=== PATIENT | female | born 1965 | race Caucasian/White ===

== ENCOUNTER 2017-03-20 22:48 | Inpatient (IN) | payer OTHER, SELFPAY ==
[2017-03-20 22:54] VITALS: BP 130/81; PULSE 123; RESP 24; TEMP 37.6; O2SAT 67; BMI 33.7
--- NOTE | 2017-03-20 23:10 | XR_ITS ---
XR chest 2V Ordering Physician: Sherman Napoles MD Patient Age: 52 years: Female HISTORY: ITS.REASON: shortness of breath Short of breath. COPD. TECHNIQUE: PA and lateral chest COMPARISON :09/14 CXR 2 view FINDINGS Patchy pneumonic infiltrates bilaterally. Right lung. Patchy infiltrate is seen at the right suprahilar region behind the head of the clavicle with a patchy infiltrate and atelectasis seen at right lower lobe as well as just lateral to the right nicole. Most extensive infiltrate is seen throughout RML on the lateral view Left lung. Low-density patchy infiltrates are seen extending to the left upper lobe as well as left perihilar region.. The inspiration is less optimally would also accentuates markings. Heart upper normal in size. Nicole and mediastinal structures otherwise similar IMPRESSION: 1. Patchy bilateral low-density infiltrates. Mainly perihilar Perihilar/ central infiltrate left lung which may and extends towards the left upper lobe. Patchy Infiltrates right lung most evident extending from right nicole -into the medial RUL & medial RLL. & Throughout RML
[2017-03-20 23:43] LABS: Basophils # 0.1 K/mm3 (0-0.2); Basophils % 0.4 % (0.1-2.0); Eosinophils # 1.6 K/mm3 (0.0-0.4); Eosinophils % 9.5 % (0.1-12.0); Hematocrit 38.7 % (37.0-47.0); Hemoglobin 12.5 g/dL (12.2-16.2); Lymphocytes # 1.5 K/mm3 (0.7-4.5); Lymphocytes % 9.1 K/mm3 (10-50); Mean Corpuscular HGB Conc 32.3 g/dL (31.8-35.4); Mean Corpuscular Volume 86.7 fl (81-99); Mean Platelet Volume 7.3 fl (7.4-10.4); Monocytes # 0.6 K/mm3 (0.1-1.0); Monocytes % 3.7 % (1.7-9.3); Neutrophils # 13.1 K/mm3 (1.8-7.8); Neutrophils % 77.3 % (37.0-80.0); Platelet Count 347 K/mm3 (142-424); Red Blood Count 4.46 M/mm3 (4.20-5.40); Red Cell Distribution Width 13.7 % (11.5-17.5); White Blood Count 16.9 K/mm3 (4.8-10.8)
[2017-03-20 23:46] LABS: MANUAL DIFFERENTIAL MANUAL DIFFERENTIAL (MANUAL DIFF)
[2017-03-20 23:54] LABS: Alanine Aminotransferase 46 U/L (12-78); Albumin Level 3.5 gm/dL (3.4-5.0); Alkaline Phosphatase 156 U/L (46-116); Anion Gap 11.6 mEq/L (5-15); Aspartate Amino Transferase 38 U/L (15-37); Bilirubin,Total 0.4 mg/dL (0.2-1.0); Blood Urea Nitrogen 14 mg/dL (7-18); Calcium 8.8 mg/dL (8.5-10.1); Carbon Dioxide 27 mmol/L (21.0-32.0); Chloride 102 mmol/L (98-107); Creatinine Clearance Estimated 104 mL/min (0-300); Creatinine,Serum 0.88 mg/dL (0.55-1.02); Estimated Glomerular Filt Rate 67 ml/min (>60); GFR (African American) 81 ML/MIN (>60); Globulin 3.5 gm/dl (1.3-3.2); Glucose 106 mg/dL (74-106); Potassium 3.6 mmoL/L (3.5-5.1); Sodium 137 mmol/L (136-145)
[2017-03-21] VITALS (15 sets, daily range): BP systolic 104–148; BP diastolic 58–81; PULSE 76–119; RESP 21–28; TEMP 36.4–37.3; O2SAT 90–96; BMI 35.6
--- NOTE | 2017-03-21 00:16 | HMH.EDGENADL ---
ED Disposition Clinical Impression: CAP (community acquired pneumonia), Acute respiratory failure with hypoxia Asthma exacerbation Qualifiers: Asthma severity: severe Asthma persistence: persistent Qualified Code(s): J45.51 - Severe persistent asthma with (acute) exacerbation Disposition: Still a Patient Condition on Discharge: Fair Referrals: Delonte Hernandez MD [Primary Care Provider] - - Critical Care Critical Care Time: Yes Attestation: On 03/20/17, the high probability of a clinically significant, sudden or life threatening deterioration of the following system(s) required my full and direct attention, intervention and personal management. The time I documented below is in addition to time spent performing reported procedures but includes the following listed in this critical care notation. Total Critical Care Time: 40 Vital system(s) involved:: Respiratory Failure My critical care processes included: Assessment & monitoring of V/S, Initial and Re-exams, Data Review/Interpretation, Coordinating Care, Medication Orders and management, Documentation Medical Decision Making Vital Signs: 03/20/17 22:54 Temperature 99.6 F Temperature Source Temporal Artery Scan Pulse Rate [Right Radial] 123 H Respiratory Rate 24 Blood Pressure [Right Arm] 130/81 Blood Pressure Mean [Right Arm] 97 Blood Pressure Position [Right Arm] Sitting 02 Sat by Pulse Oximetry 67 L Oxygen Delivery Method Room Air - Lab Data Lab Results 03/20/17 23:30: WBC 16.9 H, RBC 4.46, Hgb 12.5, Hct 38.7, MCV 86.7, MCH 28.0, MCHC 32.3, RDW 13.7, Plt Count 347, MPV 7.3 L, Neut % (Auto) 77.3, Lymph % (Auto) 9.1 L, Vilas % (Auto) 3.7, Eos % (Auto) 9.5, Baso % (Auto) 0.4, Neut # (Auto) 13.1 H, Lymph # (Auto) 1.5, Vilas # (Auto) 0.6, Eos # (Auto) 1.6 H, Baso # (Auto) 0.1, Total Counted 100, Neutrophils % (Manual) 84 H, Band Neutrophils % 4.0, Lymphocytes % (Manual) 9 L, Monocytes % (Manual) 2, Eosinophils % (Manual) 1, Platelet Estimate Normal, Polychromasia 1+, Hypochromasia 1+, Poikilocytosis 1+, Stomatocytes 1+ 01/20/18 23:30: Sodium 137, Potassium 3.6, Chloride 102, Carbon Dioxide 27, Anion Gap 11.6, BUN 14, Creatinine 0.88, Estimated Creat Clear 104, Estimated GFR 67, Est GFR ( Amer) 81, Glucose 106, Calcium 8.8, Total Bilirubin 0.4, AST 38 H, ALT 46, Alkaline Phosphatase 156 H, Total Protein 7.0, Albumin 3.5, Globulin 3.5 H, Albumin/Globulin Ratio 1.0 L Result diagrams: 03/20/17 23:30 03/20/17 23:30 Orders (Tests/Meds): ED MEDICATIONS Discontinued Medications Generic Name Dose Route Start Last Admin Trade Name Freq PRN Reason Stop Dose Admin Albuterol/Ipratropium 3 ml 03/21/17 00:26 Duoneb 3ml [facility] 03/21/17 00:27 ONCE ONE Albuterol/Ipratropium 3 ml 03/21/17 01:30 03/21/17 01:32 Duoneb 3ml [facility] 03/21/17 01:31 3 ml ONCE ONE Administration Azithromycin 500 mg/ Sodium 250 mls @ 250 mls/hr 03/21/17 01:12 03/21/17 01:28 Chloride IV 03/21/17 01:13 250 mls/hr ONCE ONE Administration Protocol Ceftriaxone Sodium 1 gm/ 50 mls @ 100 mls/hr 03/21/17 01:12 03/21/17 01:28 Sodium Chloride IV 03/21/17 01:41 100 mls/hr ONCE ONE Administration Methylprednisolone Sodium Succinate 125 mg 03/21/17 00:26 03/21/17 01:28 Solu-Medrol 125mg/2ml Vial IV 03/21/17 00:27 125 mg ONCE ONE Administration ORDERS Category Date Time Status XR chest 2V Stat Exams 03/20/17 23:10 Taken Upper Respiratory Panel, PCR Stat Lab 03/21/17 00:26 Ordered Blood Culture Stat Micro 03/20/17 23:30 Received ABG [Arterial Blood Gas] Stat RT 03/21/17 01:15 Ordered Arterial Blood Gas Stat RT 03/21/17 01:30 Received - Celio Inquiry Pt receiving controlled substance: No Medical Decision Making Narrative: The patient lists an allergy to penicillin, states as a child she had hives. Records review shows that she has had cephalosporins multiple times including Rocephin. I have discussed the
[2017-03-21 00:51] LABS: Eosinophils % 1 % (0-3); Lymphocytes % 9 % (10-50); Monocytes % 2 % (2-9); Neutrophils % 84 % (42-76); Platelet Estimate Normal; Polychromasia 1+; Total Cells Counted 100
[2017-03-21 00:52] LABS: Hypochromasia 1+; Poikilocytosis 1+; Stomatocytes 1+
[2017-03-21 04:00] LABS: Adenovirus,PCR Not Detected (NotDetected); Bordetella Pertussis Not Detected (NotDetected); Chlamydophila Pneumoniae, PCR Not Detected (NotDetected); Coronavirus 229E Not Detected (NotDetected); Coronavirus NL63 Not Detected (NotDetected); Coronavirus OC43 Not Detected (NotDetected); Coronovirus HKU1,PCR Not Detected (NotDetected); Human Metapneumovirus Not Detected (NotDetected); Influenza A, PCR Not Detected (NotDetected); Influenza AH1, 2009 Not Detected (NotDetected); Influenza AH1, PCR Not Detected (NotDetected); Influenza AH3,PCR Not Detected (NotDetected); Influenza B, PCR Not Detected (NotDetected); Mycoplasma Pneumoniae, PCR Not Detected (NotDected); Parainfluenza 1, PCR Not Detected (NotDetected); Parainfluenza 2, PCR Not Detected (NotDetected); Parainfluenza 3, PCR Not Detected (NotDetected); Parainfluenza 4, PCR Not Detected (NotDetected); Respiratory Syncytial Virus Not Detected (NotDetected)
[2017-03-21 05:17] LABS: Rhinovirus/Enterovirus Detected (NotDetected)
--- NOTE | 2017-03-21 05:43 | PC.NURSE ---
(CARLOS) NOTIFIED @ 0353 OF PT INCREASING SOA AND ANXIETY. NOTIFIED MD THAT PATIENT IS ON 100% NON-REBREATHER AND SATING AND HAS RELIEVED HER SOA SOME. PT INCREASINGLY BECOMING ANXIOUS WITH MASK ON AND TRYING TO TAKE IT OFF. PER MD ORDER: ATIVAN 0.5MG IV Q6H PRN TITRATE 02 PER NC TO KEEP SATS ABOVE 90
--- NOTE | 2017-03-21 05:45 | PC.NURSE ---
UPON ADMISSION PT WAS VERY SOA AND ANXIOUS. PT 02 SATS ON 6L NC WERE IN MID 70S, PT PUT ON 100% NON-REBREATHER AND SATS WENT UP TO LOW TO MID 90S AND SUSTAINED. MD NOTIFIED OF EPISODE, SEE PREVIOUS NOTED. WHEEZING NOTED T/O LUNG AUSCULTATION. PT NOW SUSTAINING 89-90 O2 SAT ON 5.5L NC, PT STATES SHE FEELS A LOT BETTER AND HER ANXIETY AND SOA HAVE DECREASED SINCE ADMINISTRATION OF PRN ATIVAN. PT RESTING COMFORTABLY IN BED AT THIS TIME. FAMILY AT BEDSIDE. CONT PULSE OX IN PLACE. WILL CONTINUE TO MONITOR.
--- NOTE | 2017-03-21 07:10 | PC.NURSE ---
REPORT GIVEN TO Mor BLUNT W/C
--- NOTE | 2017-03-21 07:41 | PC.NURSE ---
report given to walter dyer rn
[2017-03-21 08:22] LABS: ABG Base Excess -0.7 mmol/L (-2.4-2.3); ABG HCO3 23.8 mmhg (22.0-26.0); ABG Oxygen Saturation 85 % (90-100); ABG PCO2 37.3 mmhg (35.0-45.0); ABG PH 7.42 mmol/L (7.35-7.45); ABG TCO2 24.9 mmhg (23-27); Allen's Test ACCEPTABLE; Source R.RADIAL; Tidal Volume 5LPM
[2017-03-21 08:23] LABS: ABG PO2 49.3 mmhg (80-100)
--- NOTE | 2017-03-21 08:23 | HMH.HP ---
*Admission Date: 03/20/17 *Chief complaint: Wheezing and shortness of air *History of present illness: 52-year-old white female with asthma who over the past couple of days has had a viral type illness with nasal congestion and rhinorrhea that has progressed to shortness of air and wheezing that culminated in significant dyspnea and dyspnea at rest and exertion. Came to the emergency department, low saturations were noted, patient responded oxygen and nebulizers but continued to have hypoxia. Admitted to hospital given failure of reversal of asthma exacerbation in the emergency department. [facility] History I have reviewed the patient's past medical history: Yes Medical History: Reports:: Asthma, Hyperlipidemia, Hypertension Denies:: Cancer, Diabetes Mellitus Type 1, Diabetes Mellitus Type 2, MRSA Other Medical History: Reports: Anemia, Arthritis Other Surgeries: Yes: Hysterectomy-Partial, Sinus Surgery Amputation: No Fractures: No - *Social History Educational Level: Completed High School Smoking Status: Never smoker Alcohol Intake: current Alcohol Intake Frequency:: a few times a month Occupational Status: employed Household Members: spouse - Psychiatric History Expresses thoughts of harming self/others: None Suicide Plan Description: No Plan *Family Hx:: Heart Attack, Hypertension Review of Systems - Review of Systems Review of systems:: unable to obtain, other, pertinent systems reviewed and negative unless documented below - Constitutional Reports body ache(s), Reports chills - ENT Reports change in voice, Reports dry mouth, Reports difficulty swallowing - *Respiratory Reports chest congestion, Reports cough, Reports shortness of breath, Reports shortness of breath with activity Meds Home Medications Medication Instructions Recorded Confirmed Type Budesonide/Formoterol Fumarate 2 inh INHALATION BID 03/20/17 03/20/17 History [Symbicort 160-4.5 Mcg Inhaler] Duloxetine HCl [Duloxetine HCl] 1 tab PO BID 03/20/17 03/20/17 History Zolpidem Tartrate [Ambien 10mg 1 tab PO HS 03/20/17 03/20/17 History tablet] buPROPion HCl [Wellbutrin 75mg 75 mg PO BID 03/20/17 03/20/17 History Tablet] Allergies Allergy/AdvReac Type Severity Reaction Status Date / Time Penicillins Allergy Intermediate I-ITCHING Verified 03/20/17 23:14 Exam Vital signs and Labs for Last 24 Hours: Temp Pulse Resp BP Pulse Ox 97.5 F L 98 H 24 114/63 91 L 03/21/17 08:06 03/21/17 08:06 03/21/17 08:06 03/21/17 08:06 03/21/17 08:06 Laboratory Results - last 24 hr 03/21/17 03:25: Chlamy pneumoniae PCR Not detected, Adenovirus (PCR) Not detected, B.parapertussis DNA PCR Not detected, Coronavirus OC43 (PCR) Not detected, Coronavirus HKU1 (PCR) Not detected, Coronavirus 229E (PCR) Not detected, Coronavirus NL63 (PCR) Not detected, Human Metapneumovir PCR Not detected, Influenza A (H1) PCR Not detected, Influ A (H1N1/09) PCR Not detected, Influenza A (H3) PCR Not detected, Influenza Type A (PCR) Not detected, Influenza Type B (PCR) Not detected, M. pneumoniae (PCR) Not detected, Parainfluenza 1 (PCR) Not detected, Parainfluenza 2 (PCR) Not detected, Parainfluenza 3 (PCR) Not detected, Parainfluenza 4 (PCR) Not detected, RSV (PCR) Not detected, Entero/Rhino (PCR) Detected A I & O for Last 24 hours: Intake & Output 03/18/17 03/19/17 03/20/17 03/21/17 11:59 11:59 11:59 11:59 Intake Total 300 / 300 Output Total 30 / 30 Balance 270 / 270 Weight 214 lb 6 oz Narrative: Patient is lying comfortably in bed on high flow oxygen. Oropharynx is dry with lots of dried mucus in the posterior pharynx but no exudate or petechiae. Minimal sinus tenderness. Lungs have wheezing in the expiratory phase bilaterally and anterior and posterior. Heart rate slightly tachycardic but regular. No edema or clubbing. Neurologic exam intact. Abdomen soft and nontender. Assessment and Plan (1) Acute respiratory failure wi
--- NOTE | 2017-03-21 08:26 | P.HP_ITS ---
*Admission Date: 03/20/17 *Chief complaint: Wheezing and shortness of air *History of present illness: 52-year-old white female with asthma who over the past couple of days has had a viral type illness with nasal congestion and rhinorrhea that has progressed to shortness of air and wheezing that culminated in significant dyspnea and dyspnea at rest and exertion. Came to the emergency department, low saturations were noted, patient responded oxygen and nebulizers but continued to have hypoxia. Admitted to hospital given failure of reversal of asthma exacerbation in the emergency department. [facility] History I have reviewed the patient's past medical history: Yes Medical History: Reports:: Asthma, Hyperlipidemia, Hypertension Denies:: Cancer, Diabetes Mellitus Type 1, Diabetes Mellitus Type 2, MRSA Other Medical History: Reports: Anemia, Arthritis Other Surgeries: Yes: Hysterectomy-Partial, Sinus Surgery Amputation: No Fractures: No - *Social History Educational Level: Completed High School Smoking Status: Never smoker Alcohol Intake: current Alcohol Intake Frequency:: a few times a month Occupational Status: employed Household Members: spouse - Psychiatric History Expresses thoughts of harming self/others: None Suicide Plan Description: No Plan *Family Hx:: Heart Attack, Hypertension Review of Systems - Review of Systems Review of systems:: unable to obtain, other, pertinent systems reviewed and negative unless documented below - Constitutional Reports body ache(s), Reports chills - ENT Reports change in voice, Reports dry mouth, Reports difficulty swallowing - *Respiratory Reports chest congestion, Reports cough, Reports shortness of breath, Reports shortness of breath with activity Meds Home Medications Medication Instructions Recorded Confirmed Type Budesonide/Formoterol Fumarate 2 inh INHALATION BID 03/20/17 03/20/17 History [Symbicort 160-4.5 Mcg Inhaler] Duloxetine HCl [Duloxetine HCl] 1 tab PO BID 03/20/17 03/20/17 History Zolpidem Tartrate [Ambien 10mg 1 tab PO HS 03/20/17 03/20/17 History tablet] buPROPion HCl [Wellbutrin 75mg 75 mg PO BID 03/20/17 03/20/17 History Tablet] Allergies Allergy/AdvReac Type Severity Reaction Status Date / Time Penicillins Allergy Intermediate I-ITCHING Verified 03/20/17 23:14 Exam Vital signs and Labs for Last 24 Hours: Temp Pulse Resp BP Pulse Ox 97.5 F L 98 H 24 114/63 91 L 03/21/17 08:06 03/21/17 08:06 03/21/17 08:06 03/21/17 08:06 03/21/17 08:06 Laboratory Results - last 24 hr 03/21/17 03:25: Chlamy pneumoniae PCR Not detected, Adenovirus (PCR) Not detected, B.parapertussis DNA PCR Not detected, Coronavirus OC43 (PCR) Not detected, Coronavirus HKU1 (PCR) Not detected, Coronavirus 229E (PCR) Not detected, Coronavirus NL63 (PCR) Not detected, Human Metapneumovir PCR Not detected, Influenza A (H1) PCR Not detected, Influ A (H1N1/09) PCR Not detected , Influenza A (H3) PCR Not detected, Influenza Type A (PCR) Not detected, Influenza Type B (PCR) Not detected, M. pneumoniae (PCR) Not detected, Parainfluenza 1 (PCR) Not detected, Parainfluenza 2 (PCR) Not detected, Parainfluenza 3 (PCR) Not detected, Parainfluenza 4 (PCR) Not detected, RSV (PCR ) Not detected, Entero/Rhino (PCR) Detected A I & O for Last 24 hours: Intake & Output 03/18/17 03/19/17 03/20/17 03/21/17 11:59 11:59 11:59 11:59 Intake Total 300 / 300
--- NOTE | 2017-03-21 11:15 | P.CONPHA_ITS ---
[facility] Pharmacy VTE Monitoring - Patient Demographics Admission date: 03/21/17 Report Date: 03/21/17 Time: 11:14 Allergies/Adverse Reactions: Patient Allergies Penicillins Allergy (Intermediate, Verified 03/20/17 23:14) I-ITCHING Height: 1.65 m Weight: 97.239 kg Patient Problems: Current Active Problems Asthma exacerbation (Acute) CAP (community acquired pneumonia) (Acute) Acute respiratory failure with hypoxia (Acute) Enterovirus infection (Acute) - VTE Risk Labs: VTE Related Lab Results Hgb 12.5 g/dL (12.2-16.2) 03/20/17 23:30 Hct 38.7 % (37.0-47.0) 03/20/17 23:30 Plt Count 347 K/mm3 (142-424) 03/20/17 23:30 BUN 14 mg/dL (7-18) 03/20/17 23:30 Creatinine 0.88 mg/dL (0.55-1.02) 03/20/17 23:30 Estimated Creat Clear 104 mL/min (0-300) 03/20/17 23:30 - Prophylaxis Types of VTE Prophylaxis: TEDS Knee High (BEAN HOSE ORDERED)
--- NOTE | 2017-03-21 17:28 | PC.NURSE ---
PT STABLE. REPORTS THAT BREATHING IS EASIER TODAY AND ANXIETY IS BETTER. SLEEPS MOST OF SHIFT. NOTED TO HAVE SCATTERED RHONCHI AND WHEEZES. PT ON 4L NC SINCE 1100 AND SATS 90% OR ABOVE. MD NOTIFIED IN REGARDS TO PTs HOME MEDS. MEDS NAMED OFF TO AND OKAYS TO REORDER. SPUTUM CULTURE ORDERED PER PNEUMONIA PROTOCOL. PT REPORTS HAVING PRODUCTIVE COUGH WITH THICK, GREEN SPUTUM. SPECIMEN HAS NOT YET BEEN OBTAINED. PT AWARE OF NEED FOR SPECIMEN.
[2017-03-22] VITALS (11 sets, daily range): BP systolic 116–131; BP diastolic 65–78; PULSE 77–123; RESP 20–24; TEMP 36.1–36.8; O2SAT 86–100
--- NOTE | 2017-03-22 03:52 | PC.NURSE ---
PT REPORTED ANXIETY AT BEGINNING OF SHIFT, PRN DOSE OF ATIVAN ADMINISTERED, PT HAS RESTED ON AND OFF SINCE MEDICATION. PT HAS BEEN VERY NON-COMPLIANT WITH OXYGEN AND REMOVING IT, WHEN REMOVING IT PT O2 SATS DROP MID TO LOW 80S, PT AMBULATED TO BR AND REMOVED HER NC AND SATS DROPPED TO LOW 70s. PT EDUCATED MULTIPLE TIMES ON IMPORTANCE OF O2 AND EDUCATED ON HER OXYGEN STATUS WHEN SHE REMOVES IT. PT CURRENTLY ON 4L NC, UNABLE TO WEAN AT THIS TIME. SCATTERED RHONCHI AND WHEEZING NOTED DURING LUNG AUSCULTATION. BS ACTIVE IN ALL 4 QAUDS. VSS. A&OX3. DRY HACKY COUGH NOTED, PT STATES SHE IS HAVING TROUBLE COUGHING UP SPUTUM TO GIVE SAMPLE. PT RESTING IN BED AT THIS TIME, NO NEEDS STATED. WILL CONTINUE TO MONITOR.
--- NOTE | 2017-03-22 07:16 | HMH.ACPN2 ---
Internal Medicine - PN: Subj *Date: 03/22/17 *Time: 07:16 Interval history: Patient states her breathing is improving. Nursing staff tells me she repeatedly took her oxygen off overnight while sleeping which caused decrease in O2 sats. Cough is productive of discolored sputum. Exam Vital signs and Labs for Last 24 Hours: Temp Pulse Resp BP Pulse Ox 98.1 F 116 H 22 116/66 90 L 03/22/17 04:50 03/22/17 05:41 03/22/17 04:50 03/22/17 04:50 03/22/17 05:41 I & O for Last 24 hours: Intake & Output 03/19/17 03/20/17 03/21/17 03/22/17 11:59 11:59 11:59 11:59 Intake Total 300 / 300 780 / 780 Output Total 30 / 30 Balance 270 / 270 780 / 780 Weight 214 lb 6 oz Narrative: Patient seems mildly sedated this morning. Lungs have scattered rhonchi and some expiratory wheezes heard both anteriorly and posteriorly. Heart has a regular rate and rhythm. Assessment and Plan - Assessment and plan all Dx Assessment and Plan for all problems:: Continue steroids, aerosols, antibiotics. Encourage the patient to ambulate today
--- NOTE | 2017-03-22 07:20 | PC.NURSE ---
REPORT GIVEN TO Jennifer BAEZ W/C
--- NOTE | 2017-03-22 07:28 | PC.NURSE ---
REPORT GIVEN TO Preston MENDEZ RN
--- NOTE | 2017-03-22 18:42 | PC.NURSE ---
PATIENT RESTING IN BED, FAMILY AT BEDSIDE. LUNG SOUNDS CONTINUE TO BE WHEEZING, VITAL SIGNS STABLE. PATIENT DENIES ANY PAIN AT THIS TIME. WILL CONTINUE TO MONITOR.
[2017-03-23] VITALS (11 sets, daily range): BP systolic 124–160; BP diastolic 66–100; PULSE 77–116; RESP 16–24; TEMP 36.2–37.3; O2SAT 93–97
--- NOTE | 2017-03-23 06:28 | PC.NURSE ---
PATIENT REMAINED AFEBRILE ALL THIS SHIFT WITH O2 SATS IN LOW TO MID 90S. PATIENT WAS ON 4 L PER NC AT BEGINNING OF SHIFT AND WAS WEANED DOWN TO 2L. NO C/O SOA BUT PATIENT HAD TROUBLE SLEEPING AND ASKED FOR ATIVAN LATE IN THE NIGHT. THIS MORNING PT STATED SHE HAD A HEADACHE AND WAS GIVEN 2 TYLENOL. REMAINS WHEEZY T/O AND UNABLE TO PRODUCE SPUTUM. CALL LIGHT IN REACH. NO ACUTE CHANGES AND CALL LIGHT WITHIN REACH. VSS, WILL CONTINUE TO MONITOR.
--- NOTE | 2017-03-23 07:21 | P.PN_ITS ---
Internal Medicine - PN: Subj *Date: 03/23/17 *Time: 07:17 Interval history: Patient has no new complaints this morning. She was able to ambulate in the room yesterday although this did cause shortness of breath on exertion. Cough remains nonproductive. Overnight she was successfully weaned down to 2 L/min of nasal patient continues to require supplemental oxygen although she has been weaned from 4 L/min via nasal cannula to 2 L/min. She continues to have episodes of cough which are nonproductive. She did ambulate more yesterday than she has any day since hospitalization and noted dyspnea on exertion. She has not had any fevers. She asks if Dr. Brantley could come see her today as she had bronchoscopy at in January and is unaware of results Exam Vital signs and Labs for Last 24 Hours: Temp Pulse Resp BP Pulse Ox 98.7 F 108 H 16 143/80 93 L 03/23/17 04:00 03/23/17 06:03 03/23/17 00:00 03/23/17 04:00 03/23/17 06:03 I & O for Last 24 hours: Intake & Output 03/20/17 03/21/17 03/22/17 03/23/17 11:59 11:59 11:59 11:59 Intake Total 300 / 300 780 / 780 1250 / 1250 Output Total 30 / 30 Balance 270 / 270 780 / 780 1250 / 1250 Weight 214 lb 6 oz Microbiology Reports for the Last 24 Hours: Microbiology 03/22/17 22:00 Sputum - Expectorated Sputum Gram Stain - Final Narrative: While sleeping patient is noted to have prolonged expiratory phase. Upon awakening she appears comfortable diminished breath sounds in the bases with some adventitious sounds. Upper lobes have some expiratory wheezes with forced expiration. Heart has a regular rate and rhythm. Assessment and Plan (1) Acute respiratory failure with hypoxia Current visit: Yes Status: Acute Category: Medical Code(s): J96.01 - Acute respiratory failure with hypoxia (2) Asthma exacerbation Current visit: Yes Status: Acute Qualifiers: Asthma severity: severe Asthma persistence: persistent Qualified Code(s) : J45.51 - Severe persistent asthma with (acute) exacerbation Category: Medical Code(s): J45.901 - Unspecified asthma with (acute) exacerbation (3) CAP (community acquired pneumonia) Current visit: Yes Status: Acute Category: Medical Code(s): J18.9 - Pneumonia, unspecified organism (4) Enterovirus infection Current visit: Yes Status: Acute Category: Medical Code(s): B34.1 - Enterovirus infection, unspecified - Assessment and plan all Dx Assessment and Plan for all problems:: Begin to wean steroids. Continue antibiotics. Consult Dr. Brantley of the pulmonology service.
--- NOTE | 2017-03-23 19:10 | PC.NURSE ---
pT RESTING IN BED AT THIS TIME. C/o of PEÑALOZA, tylenol given for pain relief, pt stated this helped. No changes noted this shift from pt baseline. will continue to monitor
--- NOTE | 2017-03-23 20:51 | PC.NURSE ---
NURSE WAS NOTIFIED OF TPS ELEVATED BP
--- NOTE | 2017-03-23 20:54 | PC.NURSE ---
LATE ENTERY-NURSE WAS NOTIFIED OF PTS ELEVATED BP.
[2017-03-24] VITALS (11 sets, daily range): BP systolic 141–151; BP diastolic 78–92; PULSE 91–122; RESP 20–22; TEMP 36.1–37.1; O2SAT 88–97
--- NOTE | 2017-03-24 07:17 | P.PN_ITS ---
Internal Medicine - PN: Subj *Date: 03/24/17 *Time: 07:14 Interval history: Patient is feeling better. She still gets dyspneic with trips to the bathroom and this triggers coughing that remains nonproductive. Dr. Brantley of pulmonology service saw her yesterday and agreed with treatment plan. Exam Vital signs and Labs for Last 24 Hours: Temp Pulse Resp BP Pulse Ox 98.7 F 98 H 20 151/80 94 L 03/24/17 03:55 03/24/17 06:04 03/24/17 03:55 03/24/17 03:55 03/24/17 06:04 Vital Signs Temp Pulse Pulse Resp BP Pulse Ox 03/24/17 06:04 91 H 94 L 03/24/17 03:55 98.7 F 122 H 20 151/80 97 03/24/17 03:25 88 L 03/23/17 23:52 99.1 F 112 H 22 150/93 96 03/23/17 21:08 78 03/23/17 20:00 97.2 F L 116 H 24 160/100 97 I & O for Last 24 hours: Intake & Output 03/21/17 03/22/17 03/23/17 03/24/17 11:59 11:59 11:59 11:59 Intake Total 300 / 300 780 / 780 1370 / 1370 1210 / 1210 Output Total 30 / 30 600 / 600 Balance 270 / 270 780 / 780 1370 / 1370 610 / 610 Weight 214 lb 6 oz Microbiology Reports for the Last 24 Hours: Microbiology 03/22/17 22:00 Sputum - Expectorated Sputum Gram Stain - Final Narrative: She awakens easily. Lungs remained diminished at the bases but expiratory wheezes have improved significantly since yesterday and are only faint and in the upper lobes at this time and heart has a regular rate and rhythm Assessment and Plan (1) CAP (community acquired pneumonia) Current visit: Yes Status: Acute Category: Medical Code(s): J18.9 - Pneumonia, unspecified organism (2) Acute respiratory failure with hypoxia Current visit: Yes Status: Acute Category: Medical Code(s): J96.01 - Acute respiratory failure with hypoxia (3) Asthma exacerbation Current visit: Yes Status: Acute Qualifiers: Asthma severity: severe Asthma persistence: persistent Qualified Code(s) : J45.51 - Severe persistent asthma with (acute) exacerbation Category: Medical Code(s): J45.901 - Unspecified asthma with (acute) exacerbation (4) Enterovirus infection Current visit: Yes Status: Acute Category: Medical Code(s): B34.1 - Enterovirus infection, unspecified - Assessment and plan all Dx Assessment and Plan for all problems:: Patient is improving. Lungs sound better today than they did yesterday although she did just receive a breathing treatment. She still remains hypoxic on room air. I have encouraged the patient to ambulate more. We will attempt to wean oxygen today. Continue steroids and antibiotics. If tomorrow she is still requiring supplemental oxygen she will be discharged home with supplemental oxygen.
--- NOTE | 2017-03-24 07:25 | PC.NURSE ---
AROUND 2200, TC OPERATOR (DR. CELAYA) PAGED IN REGARDS TO RECORDED BP AND PT ASKING TO TAKE BP MEDICATIONS THAT PT NORMALLY TAKES AT HOME. AT 2315, DR. CELAYA WAS NOTIFIED OF MANUAL BP OF 166/100 AND PT CONCERN OF NOT HAVING HOME BP MEDICATIONS REORDERED. PT USUALLY TAKES AMLODIPINE QHS. DID NOT PLACE ANY NEW ORDERS. DR CARTER WAS NOTIFIED ON AM ROUNDS OF SITUATION WELL. TOLERATED 2LNC WELL. SCATTERED WHEEZING NOTED PER AUSCULTATION OF LUNG SOUNDS. MEDICATED WITH PRN COUGH MED, ANXIETY MED AND SLEEPING MEDICATION PER APR. DENIED PAIN. DROPLET PRECAUTION TOLERATED WELL. VSS. WILL CONTINUE TO MONITOR.
--- NOTE | 2017-03-24 08:05 | PC.NURSE ---
REPORT GIVEN TO Endy KILLIAN RN
--- NOTE | 2017-03-24 08:06 | P.PN_ITS ---
Internal Medicine - PN: Subj *Date: 03/24/17 *Time: 08:06 Exam Vital signs and Labs for Last 24 Hours: Temp Pulse Resp BP Pulse Ox 98.7 F 98 H 20 151/80 94 L 03/24/17 03:55 03/24/17 06:04 03/24/17 03:55 03/24/17 03:55 03/24/17 06:04 I & O for Last 24 hours: Intake & Output 03/21/17 03/22/17 03/23/17 03/24/17 23:59 23:59 23:59 23:59 Intake Total 780 / 780 1300 / 1300 1340 / 1340 510 / 510 Output Total 30 / 30 600 / 600 Balance 750 / 750 1300 / 1300 1340 / 1340 -90 / -90 Weight 97.239 kg Microbiology Reports for the Last 24 Hours: Microbiology 03/22/17 22:00 Sputum - Expectorated Sputum Gram Stain - Final Assessment and Plan (1) CAP (community acquired pneumonia) Current visit: Yes Status: Acute Category: Medical Code(s): J18.9 - Pneumonia, unspecified organism (2) Acute respiratory failure with hypoxia Current visit: Yes Status: Acute Category: Medical Code(s): J96.01 - Acute respiratory failure with hypoxia (3) Asthma exacerbation Current visit: Yes Status: Acute Qualifiers: Asthma severity: severe Asthma persistence: persistent Qualified Code(s) : J45.51 - Severe persistent asthma with (acute) exacerbation Category: Medical Code(s): J45.901 - Unspecified asthma with (acute) exacerbation (4) Enterovirus infection Current visit: Yes Status: Acute Category: Medical Code(s): B34.1 - Enterovirus infection, unspecified The patient's infection will respond to the chosen ABx?: Yes Is the patient receiving the right drug, dose, and route?: Yes Could a more targeted ABx be ordered?: No
--- NOTE | 2017-03-24 15:35 | HMH.DCSUM ---
General - General Admission date: 03/21/17 Discharge date: 03/25/17 HPI HPI: 52-year-old white female with asthma who over the past couple of days has had a viral type illness with nasal congestion and rhinorrhea that has progressed to shortness of air and wheezing that culminated in significant dyspnea and dyspnea at rest and exertion. Came to the emergency department, low saturations were noted, patient responded oxygen and nebulizers but continued to have hypoxia. Admitted to hospital given failure of reversal of asthma exacerbation in the emergency department. Objective Vital signs: Temp Pulse Resp BP Pulse Ox 97.7 F 115 H 20 149/92 96 03/24/17 12:05 03/24/17 13:38 03/24/17 12:05 03/24/17 12:05 03/24/17 12:05 Hospital Course Hospital Course: Patient was admitted and placed on routine therapy for community-acquired pneumonia with Rocephin and azithromycin. Intravenous Solu-Medrol was started as well due to the patient's asthma exacerbation. Duo nebs were given 4 times per day. Patient's PCR swab was positive for enterovirus. Patient slowly improved over the course of hospitalization with gradual decrease in wheezing and improvement in oxygenation. Patient continued to require supplemental oxygen until the last 24 hours of hospitalization with aggressive weaning and attention to pulmonary toilet was increased. Pulmonology was consulted as the patient has a long history with [facility] pulmonology service and had undergone recent bronchoscopy. She already has follow-up with [facility] pulmonology in April. On the day of discharge patient had only faint minimal wheezing. She was discharged home on prednisone and will follow-up in the office in 1 week. DS: Diagnosis - Discharge Diagnosis (1) CAP (community acquired pneumonia) Status: Acute (2) Acute respiratory failure with hypoxia Status: Acute (3) Asthma exacerbation Status: Acute (4) Enterovirus infection Status: Acute Meds Home Medications Medication Instructions Recorded Confirmed Type Budesonide/Formoterol Fumarate 2 inh INHALATION BID 03/20/17 03/20/17 History [Symbicort 160-4.5 Mcg Inhaler] Duloxetine HCl [Duloxetine HCl] 60 mg PO BID 03/20/17 03/22/17 History Zolpidem Tartrate [Ambien 10mg 10 mg PO HS 03/20/17 03/22/17 History tablet] buPROPion HCl [Wellbutrin 75mg 75 mg PO BID 03/20/17 03/20/17 History Tablet] Amlodipine Besylate [Amlodipine 10 mg PO DAILY 03/23/17 03/23/17 History 10mg Tab] Losartan/Hydrochlorothiazide 1 each PO DAILY 03/23/17 03/23/17 History [Losartan-Hctz 100-12.5 mg Tab] Allergies Allergy/AdvReac Type Severity Reaction Status Date / Time Penicillins Allergy Intermediate I-ITCHING Verified 03/20/17 23:14 Discharge Plan - Patient Discharge Instructions ACTIVITY: Continue current activity DIET: continue same diet - Follow up Plan Follow up with: Saima Dorman APRN [Nurse Practitioner] - 1 week Disposition: Home, [facility] Medications: Home Medications Medication Instructions Recorded Confirmed Type Budesonide/Formoterol Fumarate 2 inh INHALATION BID 03/20/17 03/20/17 History [Symbicort 160-4.5 Mcg Inhaler] Duloxetine HCl [Duloxetine HCl] 60 mg PO BID 03/20/17 03/22/17 History Zolpidem Tartrate [Ambien 10mg 10 mg PO HS 03/20/17 03/22/17 History tablet] buPROPion HCl [Wellbutrin 75mg 75 mg PO BID 03/20/17 03/20/17 History Tablet] Amlodipine Besylate [Amlodipine 10 mg PO DAILY 03/23/17 03/23/17 History 10mg Tab] Losartan/Hydrochlorothiazide 1 each PO DAILY 03/23/17 03/23/17 History [Losartan-Hctz 100-12.5 mg Tab] Prescriptions/Medication Reconciliation: New predniSONE [Prednisone 20mg Tab] 2 tab PO DAILY #20 tab Continue Duloxetine HCl [Duloxetine HCl] 60 mg PO BID Zolpidem Tartrate [Ambien 10mg tablet] 10 mg PO HS Budesonide/Formote
--- NOTE | 2017-03-24 15:40 | PC.NURSE ---
Patient A&O x3 this shift. VSS. Afebrile. Heart rate regular. Lung sounds with expiratory wheezing throughout all miller. Pt successfully weaned off oxygen. Room air sats maintained > 92%. Abd soft and non-tender /c active bowel sounds x4 quads. IV (L)AC saline locked. No s/s of infiltration noted at site. No c/o verbalized this shift. Will continue to monitor.
--- NOTE | 2017-03-24 19:33 | PC.NURSE ---
Bedside report given to Mor Bernal RN
[2017-03-25] VITALS: BP 154/99; PULSE 119; RESP 20; TEMP 36.8; O2SAT 93
[2017-03-25 04:00] VITALS: BP 153/99; PULSE 104; RESP 20; TEMP 36.4; O2SAT 94
[2017-03-25 06:28] VITALS: PULSE 100; O2SAT 93
--- NOTE | 2017-03-25 07:35 | PC.NURSE ---
REPORT GIVEN TO Letitia WILHELM W/C
--- NOTE | 2017-03-25 08:11 | PC.NURSE ---
NO COMPLAINTS STATED. TOLERATED RA WELL. WHEEZES SCATTERED PER AUSCULTATION OF LUNG SOUNDS. PRN SLEEPING MED ADMINISTERED AT BEGINNING OF SHIFT, PT SLEPT WELL. VSS. WILL CONTINUE TO MONITOR.
[2017-03-25 08:31] VITALS: BP 156/96; PULSE 107; RESP 20; TEMP 36.4; O2SAT 97
== END 2017-03-25 10:18 | disposition home or self-care (01) | DRG 193 ==
LOC: ER 03-21 01:14 → 2ND 03-21 02:31
PROVIDERS: Admitting Provider Internal Medicine Adolescent Medicine; Emergency Provider Emergency Medicine; Family Provider Family Medicine; PCP Family Medicine; Visit Provider Family Medicine
DX: J18.9 Pneumonia, unspecified organism (principal); J96.01 Acute respiratory failure with hypoxia; J45.51 Severe persistent asthma with (acute) exacerbation; I10 Essential (primary) hypertension; J06.9 Acute upper respiratory infection, unspecified; B97.10 Unspecified enterovirus as the cause of diseases classified elsewhere; Z79.899 Other long term (current) drug therapy; Z88.0 Allergy status to penicillin; Z90.710 Acquired absence of both cervix and uterus; Z82.49 Family history of ischemic heart disease and other diseases of the circulatory system; Z79.51 Long term (current) use of inhaled steroids
CPT/HCPCS: 71046; 80053; 82803; 85007; 85025; 87040; 87070; 87205; 87486; 87581; 87633; 87798; 94640; 94760; 94761; 96365; 96366; 99284; J0456; J1642

== ENCOUNTER → 2017-04-01 11:36 | Outpatient (CLI) | payer OTHER, SELFPAY ==
--- NOTE | 2017-04-01 11:46 | XR_ITS ---
XR chest 2V HISTORY: ITS.REASON: PNEUMONIA,SEVERE ASTHMA ORDERING PHYSICIAN: Saima Dorman PATIENT AGE: 52 years COMPARISON: 03/20/2017 FINDINGS: Mild cardiomegaly without failure.. Atelectatic changes are present in both lower lobes. The consolidation in the right lower and right middle lobe has shown some improvement. Patchy infiltrate in in the right upper lobe once again noted but slightly improved. Left upper lobe pneumonia also improved. IMPRESSION: Persistent but improving bilateral airspace disease/pneumonia as described above
== END ==
PROVIDERS: PCP Family Medicine; Visit Provider Nurse Practitioner Family
DX: J18.9 Pneumonia, unspecified organism (principal); J45.998 Other asthma
CPT/HCPCS: 71046

== ENCOUNTER → 2017-04-20 15:24 | Outpatient (CLI) | payer OTHER, SELFPAY ==
--- NOTE | 2017-04-20 15:30 | XR_ITS ---
XR KUB CLINICAL INDICATION: Abdominal pain ORDERING PHYSICIAN: Saima Dorman PATIENT AGE: 52 years COMPARISON: None FINDINGS: There is a nonspecific nonobstructive bowel gas pattern. Surgical clips are present from prior cholecystectomy and there are calcific densities in the pelvis which are phleboliths. Mild amount retained colonic feces on the right. No evidence of rectal fecal infection IMPRESSION: Nonacute findings with mild amount retained colonic feces on the right
--- NOTE | 2017-04-20 15:30 | XR_ITS ---
XR chest 2V HISTORY: Cough and congestion, Pneumonia ITS.REASON: CONSTIPATION,PNEUMONIA ORDERING PHYSICIAN: Saima Domran PATIENT AGE: 52 years COMPARISON: To 118 FINDINGS: Increasing density is present in the right lung base consistent with worsening atelectasis and/or infiltrate. Atelectatic changes are once again noted in the left lung base. Borderline cardiomegaly without failure with mildly elevated right hemidiaphragm. Kyphosis of the thoracic spine. IMPRESSION: Slight increased density right lung base consistent with worsening atelectasis and/or infiltrate
== END ==
PROVIDERS: PCP Nurse Practitioner Family; Visit Provider Nurse Practitioner Family
DX: K59.01 Slow transit constipation (principal); J18.9 Pneumonia, unspecified organism
CPT/HCPCS: 71046; 74018

== ENCOUNTER → 2017-05-03 15:15 | Outpatient (CLI) | payer OTHER, SELFPAY ==
--- NOTE | 2017-05-03 15:19 | XR_ITS ---
XR chest 2V HISTORY: ITS.REASON: PNEUMONIA BOTH LUNG, INFECTIOUS ORGANISM ORDERING PHYSICIAN: Saima Dorman PATIENT AGE: 52 years COMPARISON: 04/20/2017 FINDINGS: Mild cardiomegaly without failure.. There remains mild left basilar atelectasis. Patchy density once again noted in the right middle lobe consistent with atelectasis or infiltrate slightly improved. Upper lobes are clear. IMPRESSION: Persistent but slightly improved right middle lobe atelectasis or infiltrate with mild residual left basilar atelectasis.
== END ==
PROVIDERS: PCP Nurse Practitioner Family; Visit Provider Nurse Practitioner Family
DX: J18.9 Pneumonia, unspecified organism (principal)
CPT/HCPCS: 71046

== ENCOUNTER → 2017-05-04 10:04 | Outpatient (POV) | payer OTHER, SELFPAY | PROVIDERS: Family Provider Family Medicine; PCP Nurse Practitioner Family; Visit Provider Internal Medicine | DX: J18.9 Pneumonia, unspecified organism (principal) | CPT/HCPCS: 87070; 87077; 87186; 87205 ==

== ENCOUNTER → 2017-05-27 12:46 | Outpatient (CLI) | payer OTHER, SELFPAY | PROVIDERS: Visit Provider Internal Medicine Cardiovascular Disease | DX: R06.00 Dyspnea, unspecified (principal); R07.9 Chest pain, unspecified; J45.51 Severe persistent asthma with (acute) exacerbation; I10 Essential (primary) hypertension | CPT/HCPCS: 36415; 83880 ==

== ENCOUNTER → 2017-06-03 12:35 | Outpatient (CLI) | payer OTHER, SELFPAY ==
--- NOTE | 2017-06-03 12:46 | CT_ITS ---
CT chest wo con COMPARISON: CT scan the chest without contrast 02/02/2017 HISTORY: Shortness of breath, symptoms of asthma TECHNIQUE: Multiaxial scans obtained from thoracic inlet to the hemidiaphragms and were performed without IV contrast. Sagittal coronal reformats were evaluated as well. FINDINGS: This is a slightly poor inspiration. Lung miller are grossly clear of infiltrate except for minimal opacity at the left base likely representing a small area of atelectasis, I doubt residual pneumonic infiltrate. Again noted is generalized cardio megaly and there is minimal coronary artery calcification. There is no evidence of failure and is no pleural fluid. The right middle lobe collapse seen on the previous study has resolved with minimal atelectasis remaining in right middle lobe. IMPRESSION: Overall definite interval improvement from the previous study minimal left basilar and right middle lobe atelectasis remaining at this time, stable generalized cardio megaly without failure
== END ==
PROVIDERS: Family Provider Family Medicine; PCP Nurse Practitioner Family; Visit Provider Nurse Practitioner Family
DX: R07.9 Chest pain, unspecified (principal); R06.00 Dyspnea, unspecified; I10 Essential (primary) hypertension; J45.51 Severe persistent asthma with (acute) exacerbation
CPT/HCPCS: 71250

== ENCOUNTER → 2017-07-12 06:15 | Outpatient (CLI) | payer OTHER, SELFPAY ==
--- NOTE | 2017-07-12 06:17 | CA_ITS ---
PROCEDURE: 2-D M-mode and color Doppler study INDICATIONS FOR THE TEST: Chest pain X COPDX Heart Murmur Tobacco Smoking Palpitations FatigueX Syncope Edema HypertensionXDiabetes Mellitus Rheumatic Fever SOBXDOEXObesityXHyperlipidemiaX Family History HD Additional History PATIENT INFORMATION HEIGHT: 65 WEIGHT:215 GENDER: Female B/P:149/89 2-D/M-MODE INTERPRETATION: 2-D MEASUREMENTS OBSERVED VALUES IN CMS Right Ventricular Dimension (RVDd) 2.7 Interventricular Septum (Thickness)(IVsd) 1.1 Left Ventricular Internal Dimensions(LVIDd) 4.9 Left Ventricular Posterior Wall (Thickness)(LVPWd) 1.2 Aortic Root 3.5 Aortic Cusp Separation 2.2 Left Atrial Dimensions (LAD) 3.8 2D 1. Left atrium is qualitatively mildly enlarged, left ventricle is normal size, mild concentric left ventricular hypertrophy, visually estimated ejection fraction 55% with no obvious regional wall motion abnormality. 2. The right atrium and right ventricle are relatively normal size and function. 3. The aortic valve is minimally thickened and calcified. 4. The mitral and tricuspid valve leaflets are minimally thickened. 5. The pulmonic valve is poorly visualized. 6. No significant pericardial effusion noted. DOPPLER INTERROGATION: Doppler interrogation of the aortic, mitral and tricuspid valvular presence of mild mitral and tricuspid regurgitation, tricuspid and jet velocity is insufficient for calculation of the right ventricular systolic pressure, grade 1 diastolic dysfunction seen without tissue Doppler evidence of raised left atrial pressure. CONCLUSION: 1. Mildly enlarged left atrium, normal left ventricular size, mild concentric left ventricular hypertrophy, visually estimated ejection fraction 55% with no obvious regional wall motion abnormality, grade 1 diastolic dysfunction seen without tissue Doppler evidence of raised left atrial pressure. 2. Mild mitral and tricuspid regurgitation 3. No significant pericardial effusion noted.
--- NOTE | 2017-07-12 06:17 | NM_ITS ---
CARDIOLITE SPECT MYOCARDIAL PERFUSION SCAN, REST AND STRESS: EXERCISE STRESS [facility] REVIEW QGS EF AND WALL MOTION EVALUATION: QPS - PERFUSION EVALUATION HISTORY: SOA, CHEST PAIN DOSE: 10.31 mCi technetium 99m mibi intravenously at rest followed by 30.6 mCi technetium 99m mibi following the intravenous ministration of 0.4 mg of Lexiscan. Resting blood pressure is 170/98. Stress blood pressure 136/77. FINDINGS: Ejection fraction is calculated to be 69. Stress images reveal decreased activity in the anterior wall and lateral wall and apex. Rest images reveal better uptake in the anterior wall with worsening activity in the lateral wall with possibly slight improvement in the apex. Gated images calculated ejection fraction of 69% with normal wall motion IMPRESSION: High risk abnormal stress test with multiple ischemic areas including the anterior wall lateral wall and apex. Normal ejection fraction normal wall motion
--- NOTE | 2017-07-12 08:45 | HMH.ITSHM ---
symbicort losartan hctz bupropion montelukast duloxetine lyrica dexilant spiriva
== END ==
PROVIDERS: Family Provider Family Medicine; PCP Nurse Practitioner Family; Visit Provider Internal Medicine
DX: R06.02 Shortness of breath (principal); R07.9 Chest pain, unspecified; I10 Essential (primary) hypertension; J45.901 Unspecified asthma with (acute) exacerbation
CPT/HCPCS: 78452; 93017; 93306; A9502; J2785

== ENCOUNTER → 2017-08-19 10:46 | Outpatient (CLI) | payer OTHER, SELFPAY ==
[2017-08-19 12:52] LABS: Anion Gap 11.1 mEq/L (5-15); Blood Urea Nitrogen 19 mg/dL (7-18); Carbon Dioxide 28 mmol/L (21.0-32.0); Chloride 103 mmol/L (98-107); Creatinine,Serum 0.87 mg/dL (0.55-1.02); Estimated Glomerular Filt Rate 68 ml/min (>60); GFR (African American) 82 ML/MIN (>60); Glucose 88 mg/dL (74-106); Potassium 4.1 mmoL/L (3.5-5.1); Sodium 138 mmol/L (136-145)
== END ==
PROVIDERS: Visit Provider Internal Medicine Cardiovascular Disease
DX: E78.5 Hyperlipidemia, unspecified (principal); R53.83 Other fatigue
CPT/HCPCS: 36415; 80048

== ENCOUNTER → 2017-09-23 15:57 | Outpatient (CLI) | payer OTHER, SELFPAY ==
--- NOTE | 2017-09-23 16:13 | XR_ITS ---
XR lumbar spine min 4V Ordering Physician: Saima Dorman Patient Age: 52 years: Female HISTORY: ITS.REASON: LOW BACK PAIN TECHNIQUE: Five-view lumbar spine series COMPARISON : CT chest January 2017. And May 2017 FINDINGS Lumbar vertebral bodies are intact with no compression fracture or lesion. No subluxation. It L5/S1 disc space narrowing with vacuum phenomena most notable. Also hypertrophic, facet changes will likely most evident at L5/S1 ) followed by L4/5. Left facet hypertrophy more pronounced than right at L5/S1 Pedicles transverse processes SI joints notified. Mild diffuse demineralization is motion on majority of these images. The kidneys normal contour with no calcification at kidneys evident. Mild atrophy calcified aorta. Prominent, increased stool at the hepatic flexure Kyphosis at the lower thoracic spine towards the lumbar junction. There is disc space narrowing at these levels which is seen on previous chest as well disc space narrowing T11/12 with mild sclerosis about this level most notable. Slight narrowing T12/L1 and T 10-11 disc space is also noted IMPRESSION 1. Lumbar spine. No acute findings. Degenerative disc space narrowing L5/S1 Stable disc space narrowing and kyphosis at the lower thoracic spine
== END ==
PROVIDERS: PCP Nurse Practitioner Family; Visit Provider Nurse Practitioner Family
DX: M54.16 Radiculopathy, lumbar region (principal)
CPT/HCPCS: 72110

== ENCOUNTER → 2017-11-30 10:09 | Outpatient (POV) | payer OTHER, SELFPAY | PROVIDERS: Family Provider Family Medicine; PCP Nurse Practitioner Family; Visit Provider Internal Medicine | DX: Z00.00 Encounter for general adult medical examination without abnormal findings (principal) ==

== ENCOUNTER → 2017-12-01 11:45 | Outpatient (CLI) | payer OTHER, SELFPAY ==
[2017-12-01 12:15] VITALS: PULSE 82; PULSE 87
[2017-12-01 12:40] VITALS: BP 138/82; BP 170/90; PULSE 102; PULSE 82; RESP 18; RESP 24; O2SAT 96; O2SAT 98
[2017-12-01 13:48] LABS: Basophils # 0.1 K/mm3 (0-0.2); Basophils % 0.4 % (0.1-2.0); Eosinophils # 0.3 K/mm3 (0.0-0.4); Eosinophils % 2.1 % (0.1-12.0); Hematocrit 42.6 % (37.0-47.0); Hemoglobin 13.3 g/dL (12.2-16.2); Lymphocytes # 2.7 K/mm3 (0.7-4.5); Lymphocytes % 22.4 K/mm3 (10-50); Mean Corpuscular HGB Conc 31.3 g/dL (31.8-35.4); Mean Corpuscular Volume 86.4 fl (81-99); Mean Platelet Volume 6.5 fl (7.4-10.4); Monocytes # 0.7 K/mm3 (0.1-1.0); Neutrophils # 8.2 K/mm3 (1.8-7.8); Neutrophils % 69.1 % (37.0-80.0); Platelet Count 430 K/mm3 (142-424); Red Blood Count 4.93 M/mm3 (4.20-5.40); Red Cell Distribution Width 14.4 % (11.5-17.5); White Blood Count 11.9 K/mm3 (4.8-10.8)
== END ==
PROVIDERS: Nurse Practitioner Family; Family Provider Family Medicine; PCP Nurse Practitioner Family; Visit Provider Internal Medicine
DX: J45.50 Severe persistent asthma, uncomplicated (principal)
CPT/HCPCS: 36415; 85025; 94060; 94618; 94640; 94726; 94729

== ENCOUNTER → 2017-12-20 10:42 | Outpatient (CLI) | payer OTHER, SELFPAY ==
--- NOTE | 2017-12-20 10:45 | MM_ITS ---
MM Dig screening mamm BI w/CAD CAD Screening COMPARISON: Digital mammograms with CAD 01/28/2012 M 02/12/2014 INDICATION: There is no personal or family history of breast cancer TECHNIQUE: Standard CC and MLO images were obtained. R2 CAD reviewed. FINDINGS: Moderate diffuse fibroglandular densities are seen in the central portions of both breast. There is benign-appearing calcification left breast. Again noted is the oval nodular density near the axillary tail right breast likely an intramammary node. There is no suspicious lesion and there are no suspicious microcalcifications. IMPRESSION: Moderate breast density with no suspicious lesion seen BI-RADS Category: 2 Benign Finding(s) RECOMMENDED FOLLOW-UP: 1YR - 1 YEAR FOLLOW-UP (A letter has been sent to the patient regarding results of the study.)
== END ==
PROVIDERS: Family Provider Family Medicine; PCP Nurse Practitioner Family; Visit Provider Nurse Practitioner Family
DX: Z12.31 Encounter for screening mammogram for malignant neoplasm of breast (principal)
CPT/HCPCS: 77067

== ENCOUNTER → 2018-01-21 07:58 | Outpatient (CLI) | payer OTHER, SELFPAY ==
--- NOTE | 2018-01-21 08:08 | US_ITS ---
US abdomen limited History:Elevated liver enzymes Ordering Physician:Saima Dorman Patient Age: 52 years Comparison:CT abd.08-06-2009 Findings: Pancreas:Normal in size and showing overall increased echogenicity consistent with fatty infiltration.. No ductal dilatation Liver:The liver is normal in size and show scattered areas of increased attenuation consistent with areas of fatty infiltration.. The common bile duct measures 3.7 mm. No intrahepatic biliary ductal dilatation evident. Right Kidney:Measures 8.1 x 4.3 x 6.0 cm and appears sonographically normal. Gallbladder: Post cholecystectomy Impression: Diffuse fatty infiltration of the pancreas which is otherwise normal in size and appearance, scattered areas of fatty infiltration of the liver
== END ==
PROVIDERS: PCP Nurse Practitioner Family; Visit Provider Nurse Practitioner Family
DX: R74.8 Abnormal levels of other serum enzymes (principal)
CPT/HCPCS: 76705

== ENCOUNTER → 2018-02-03 08:07 | Outpatient (CLI) | payer OTHER, SELFPAY ==
--- NOTE | 2018-02-03 08:10 | MR_ITS ---
MR lumbar spine wo con, MR 3-d myelogram/MRCP HISTORY: Pt states low back pain X years. Pain has gotten worse. Left leg and foot pain. Numbness in bilateral thighs. Left toes numbness. ITS.REASON: LUMBAR BACK PAIN W/ RADICULOPATHY AFFECTING LOWER EXTREMITY ORDERING PHYSICIAN: Saima Dorman PATIENT AGE: 52 years Comparison: X-RAY 09-23-17 TECHNIQUE: Standard multiplanar multiecho sequences are performed without contrast. 3-D MIP and myelographic images are also rendered and reviewed FINDINGS: There is normal alignment. There is reversal of the lower thoracic kyphosis. The spinal cord ends at the L1-L2 level. T11-T12: Mild degenerative disc disease. T12-L1: Degenerative disc disease. L1-L2: Unremarkable. L2-L3: Unremarkable. L3-L4 and L4-5 have unremarkable appearance. L5-S1: Degenerative disc disease with mild concentric bulging disc. There is prominent facet and ligamentum flavum hypertrophic change on the left at this level causing moderate to severe left-sided foraminal narrowing with some mild impingement upon the exiting L5 nerve root No canal stenosis or disc herniation evident. IMPRESSION: 1. Lower thoracic spondylosis with degenerative disc disease and reversal of kyphosis. 2. L5-S1: Degenerative disc disease with mild concentric bulging disc. There is prominent facet and ligamentum flavum hypertrophic change on the left at this level causing moderate to severe left-sided foraminal narrowing with some mild impingement upon the exiting L5 nerve root 3. No disc herniation or canal stenosis
== END ==
PROVIDERS: PCP Nurse Practitioner Family; Visit Provider Nurse Practitioner Family
DX: M54.16 Radiculopathy, lumbar region (principal)
CPT/HCPCS: 72148; 76376

== ENCOUNTER → 2018-02-23 19:56 | Outpatient (CLI) | payer OTHER, SELFPAY | PROVIDERS: PCP Nurse Practitioner Family; Visit Provider Specialist | DX: G47.33 Obstructive sleep apnea (adult) (pediatric) (principal); G47.10 Hypersomnia, unspecified; I10 Essential (primary) hypertension | CPT/HCPCS: 95811 ==

== ENCOUNTER → 2018-05-13 13:03 | Outpatient (CLI) | payer OTHER, SELFPAY ==
--- NOTE | 2018-05-13 13:13 | XR_ITS ---
XR chest 2V HISTORY: ITS.REASON: COUGH ORDERING PHYSICIAN: Saima Dorman PATIENT AGE: 53 years COMPARISON: 05/03/2017 FINDINGS: Borderline cardiomegaly without failure. Chronic atelectatic changes are present in the right lower lobe. Patchy density is present in the left lung base and may be related to pericardial fat. There is vague increased density over the left mid and lower lungs which could be related to underlying infiltrate. Upper lobes are clear. I fibrosis noted in the thoracic spine unchanged. IMPRESSION: Cardiomegaly with chronic changes in the lung bases with possible infiltrate in the left lower lobe
[2018-05-13 14:03] LABS: Basophils % 0.3 % (0.1-2.0); Eosinophils # 0.2 K/mm3 (0.0-0.4); Eosinophils % 1.4 % (0.1-12.0); Hematocrit 44.6 % (37.0-47.0); Hemoglobin 14.3 g/dL (12.2-16.2); Lymphocytes % 22.8 % (10-50); Mean Corpuscular HGB Conc 32.1 g/dL (31.8-35.4); Mean Corpuscular Hemoglobin 27.7 pg (27.0-31.2); Mean Corpuscular Volume 86.3 fl (81-99); Mean Platelet Volume 7.1 fl (7.4-10.4); Monocytes # 0.7 K/mm3 (0.1-1.0); Monocytes % 5.6 % (1.7-9.3); Neutrophils # 9.2 K/mm3 (1.8-7.8); Neutrophils % 69.9 % (37.0-80.0); Platelet Count 444 K/mm3 (142-424); Red Blood Count 5.16 M/mm3 (4.20-5.40); Red Cell Distribution Width 14.7 % (11.5-17.5); White Blood Count 13.2 K/mm3 (4.8-10.8)
[2018-05-13 17:06] LABS: Alanine Aminotransferase 46 U/L (12-78); Albumin Level 3.6 gm/dL (3.4-5.0); Albumin/Globulin Ratio 1.1 (1.1-1.8); Alkaline Phosphatase 150 U/L (46-116); Anion Gap 17.9 mEq/L (5-15); Aspartate Amino Transferase 30 U/L (15-37); Bilirubin,Total 0.3 mg/dL (0.2-1.0); Blood Urea Nitrogen 21 mg/dL (7-18); Calcium 9.3 mg/dL (8.5-10.1); Carbon Dioxide 26 mmol/L (21.0-32.0); Chloride 98 mmol/L (98-107); Creatinine,Serum 1.33 mg/dL (0.55-1.02); Estimated Glomerular Filt Rate 42 ml/min (>60); GFR (African American) 50 ML/MIN (>60); Globulin 3.4 gm/dl (1.3-3.2); Glucose 95 mg/dL (74-106); Potassium 3.9 mmoL/L (3.5-5.1); Sodium 138 mmol/L (136-145); Thyroid Stimulating Hormone 1.57 uIU/ml (0.358-3.740)
== END ==
PROVIDERS: PCP Nurse Practitioner Family; Visit Provider Nurse Practitioner Family
DX: R05 Cough (principal); R53.83 Other fatigue
CPT/HCPCS: 36415; 71046; 80053; 84443; 85025

== ENCOUNTER → 2018-08-30 16:45 | Outpatient (CLI) | payer OTHER, SELFPAY ==
--- NOTE | 2018-08-30 16:49 | XR_ITS ---
XR knee RT 3V HISTORY: ITS.REASON: EFFUSION OF RIGHT KNEE, PAIN ORDERING PHYSICIAN: Saima Dorman APRN PATIENT AGE: 53 years COMPARISON: None FINDINGS: No fracture or dislocation. No lytic or blastic change. Normal mineralization. There are mild osteoarthritic changes involving the medial compartment. There is increased density in the suprapatellar region consistent knee joint effusion. IMPRESSION: Mild osteoarthritis of the medial compartment with suprapatellar effusion
== END ==
PROVIDERS: PCP Nurse Practitioner Family; Visit Provider Nurse Practitioner Family
DX: M25.461 Effusion, right knee (principal); M25.561 Pain in right knee; M25.361 Other instability, right knee
CPT/HCPCS: 73562

== ENCOUNTER → 2018-09-16 13:22 | Outpatient (CLI) | payer OTHER, SELFPAY ==
--- NOTE | 2018-09-16 13:24 | MR_ITS ---
MR knee RT wo con HISTORY: Medial right knee pain, twisting injury with pain and swelling ITS.REASON: ACUTE PAIN OF RIGHT KNEE ORDERING PHYSICIAN: Princess Andrade APRN PATIENT AGE: 53 years Comparison: None TECHNIQUE: Standard multiplanar multiecho sequences are performed without contrast. FINDINGS: The cruciate ligaments are intact. There is some edema of the superior aspect of the medial collateral ligament suggesting a grade 1 sprain without definite tear. The lateral collateral ligament complex appears intact. Patellar tendon and quadriceps tendon are intact. There is diffuse increased T2 signal with irregularity involving the posterior horn of the medial meniscus. The anterior medial meniscus is unremarkable. The lateral meniscus has an unremarkable appearance. There is mild thinning of the patellar cartilage. There is a moderate-sized knee joint effusion with edema within the soft tissues surrounding the knee. Increased T2 signal involves the medial femoral condyle and medial tibial plateau. There is a area of subchondral decreased T1 and decreased T2 signal along the articular surface of the medial femoral condyle and medial tibial plateau and could represent an area of bony impaction or osteochondrosis dissecans. Soft tissue swelling is present medial to the medial joint space. Osteoarthritic changes are present within the medial compartment and patellofemoral joint. Small area of subcortical decreased T1 and increased T2 signal present involving the central aspect of the lateral femoral condyle There is mild lateral subluxation of the patella. The medial patellofemoral ligament does appear and may be partially torn. IMPRESSION: 1. Diffuse increased T2 signal with ill-definition of the posterior horn of the medial meniscus consistent with a complex tear 2. Grade 1 sprain of the medial collateral ligament. 3. Bone bruise of the medial femoral condyle and medial tibial plateau with associated decreased T1 and T2 signal in the subchondral region which could be due to minimal bony impaction or osteochondrosis dissecans 4. Sprain versus partial tear of the medial patellofemoral ligament with mild lateral patellar subluxation. 5. Osteoarthritic change with moderate size knee joint effusion and soft tissue edema surrounding especially on the medial aspect. Mild chondromalacia patella suspected
== END ==
PROVIDERS: PCP Nurse Practitioner; Visit Provider Nurse Practitioner
DX: M25.561 Pain in right knee (principal)
CPT/HCPCS: 73721

== ENCOUNTER → 2018-10-24 13:01 | Outpatient (CLI) | payer OTHER, SELFPAY ==
--- NOTE | 2018-10-24 13:07 | XR_ITS ---
PROCEDURE: XR FOOT LT MIN 3V CLINICAL INDICATION: BILAT FOOT PAIN COMPARISON: None FINDINGS: There is a comminuted nondisplaced fracture involving the proximal phalanx of the 5th digit. There does appear to be some callus formation along the lateral aspect of this fracture fragment. There are severe osteoarthritic changes of the metatarsophalangeal joint of the 2nd digit. Mild osteoarthritis is present at the calcaneocuboid joint and talonavicular joint. An accessory center of ossification is present the base of the 5th metatarsal. There is pes planus. Other findings:None. IMPRESSION: 1. Healing fracture involving the proximal phalanx of the 5th digit 2. Osteoarthritic change as described above 3. Pes planus Dictated by: Chucky Bruce MD 10/24/2018 14:37 Signed by: <Electronically signed by Chucky Bruce MD in [place]> 10/24/2018 14:37
--- NOTE | 2018-10-24 13:07 | XR_ITS ---
PROCEDURE: XR KNEE LT 3V CLINICAL INDICATION: ACUTE LT KNEE PAIN COMPARISON: No exams were available for comparison FINDINGS: No fracture or dislocation. No lytic or blastic change. There is normal mineralization. There are mild osteoarthritic changes of the medial compartment Other findings:None. IMPRESSION: Mild osteoarthritis medial compartment otherwise negative Dictated by: Chucky Bruce MD 10/24/2018 14:45 Signed by: <Electronically signed by Chucky Bruce MD in [place]> 10/24/2018 14:45
--- NOTE | 2018-10-24 13:07 | XR_ITS ---
PROCEDURE: XR FOOT RT MIN 3V CLINICAL INDICATION: BILAT FOOT PAIN COMPARISON: No exams were available for comparison FINDINGS: There are severe osteoarthritic changes of the 2nd metatarsophalangeal joint. There flattening of the head of the 2nd metatarsal. Mild hallux valgus. Mild osteoarthritis of the 2nd and 3rd metatarsal tarsal joint and the calcaneocuboid joint. No fracture or dislocation. Other findings:None. IMPRESSION: Osteoarthritic change as detailed above Dictated by: Chucky Bruce MD 10/24/2018 14:44 Signed by: <Electronically signed by Chucky Bruce MD in [place]> 10/24/2018 14:44
== END ==
PROVIDERS: PCP Nurse Practitioner Family; Visit Provider Nurse Practitioner Family
DX: M25.562 Pain in left knee (principal); M79.671 Pain in right foot; M79.672 Pain in left foot
CPT/HCPCS: 73562; 73630

== ENCOUNTER → 2018-10-28 14:44 | Outpatient (CLI) | payer OTHER, SELFPAY ==
[2018-10-28 15:58] LABS: Uric Acid 3.1 mg/dL (2.6-7.2)
== END ==
PROVIDERS: Visit Provider Nurse Practitioner Family
DX: M10.09 Idiopathic gout, multiple sites (principal)
CPT/HCPCS: 36415; 84550

== ENCOUNTER → 2018-11-15 13:45 | Outpatient (POV) | payer OTHER, SELFPAY | PROVIDERS: Visit Provider Internal Medicine | DX: Z00.00 Encounter for general adult medical examination without abnormal findings (principal) ==

== ENCOUNTER → 2018-11-28 12:03 | Outpatient (POV) | payer OTHER, SELFPAY | PROVIDERS: Visit Provider Specialist | DX: R20.8 Other disturbances of skin sensation (principal); R20.0 Anesthesia of skin; M79.672 Pain in left foot | CPT/HCPCS: 95886; 95909 ==

== ENCOUNTER → 2018-12-01 13:02 | Outpatient (CLI) | payer OTHER, SELFPAY ==
--- NOTE | 2018-12-01 13:17 | XR_ITS ---
PROCEDURE: XR CHEST 2V CLINICAL HISTORY: SOB,ASTHMA COMPARISON: 05/13/2018. FINDINGS: The cardiomediastinal silhouette and pulmonary vascularity are within normal limits. There are strands of increased density in both lower lobes which are stable and the lungs are moderately hypoaerated. No acute bony abnormalities. IMPRESSION: Hypoaerated lungs with scarring in the lung bases. No other change. Dictated by: Luca Valencia 12/01/2018 13:28 Electronically signed by Luca Valencia in [place] 12/01/2018 13:28
[2018-12-01 13:29] LABS: Microscopic, Urine URINE MICROSCOPIC (MICROSCOPIC)
--- NOTE | 2018-12-01 13:54 | ECG_ITS ---
APPROVED REPORT Exam: Resting ECG HR:83 bpm ECG Measurements Heart Rate 83 AXES TX 148 P 34 QRSd 86 QRS 34 QT 364 T 42 QTc 427 <Conclusion> Normal sinus rhythm Normal ECG Electronically signed by : Delonte Young, 12/03/2018 19:16:20
[2018-12-01 14:20] LABS: Appearance,Urine CLEAR (Clear); Bilirubin,Urine Negative (Negative); Blood, Urine Negative (Negative); Color,Urine YELLOW (Yellow); Glucose,Urine (UA) Negative (Negative); Ketones,Urine TRACE (Negative); Leukocyte Esterase,Urine TRACE (Negative); Nitrate,Urine Negative (Negative); Protein,Urine Negative (Negative); Urobilinogen,Urine 0.2 EU/dl (0.2)
[2018-12-01 14:29] LABS: Hemoglobin A1C 6.1 % (0.0-7.0)
[2018-12-01 14:41] LABS: Bacteria,Urine Trace /lpf; RBC,Urine Occasional #/hpf (0-3); Squamous Epithelial Cell,Urine Occasional #/hpf (0-5)
[2018-12-01 14:49] LABS: Basophils # 0.1 K/mm3 (0-0.2); Basophils % 0.3 % (0.1-2.0); Eosinophils # 0.2 K/mm3 (0.0-0.4); Eosinophils % 1.1 % (0.1-12.0); Hematocrit 41.7 % (37.0-47.0); Lymphocytes % 11.3 % (10-50); Mean Corpuscular HGB Conc 31.2 g/dL (31.8-35.4); Mean Corpuscular Hemoglobin 28.3 pg (27.0-31.2); Mean Corpuscular Volume 90.5 fl (81-99); Mean Platelet Volume 8.1 fl (7.4-10.4); Monocytes # 0.8 K/mm3 (0.1-1.0); Monocytes % 4.6 % (1.7-9.3); Neutrophils # 14.8 K/mm3 (1.8-7.8); Neutrophils % 82.8 % (37.0-80.0); Platelet Count 517 K/mm3 (142-424); Red Cell Distribution Width 14.2 % (11.5-17.5); White Blood Count 17.8 K/mm3 (4.8-10.8)
[2018-12-01 14:53] LABS: Activated Partial Thrombo Time 26.5 seconds (23.6-34.0); INR 0.91 (0.9-1.1); Prothrombin Time 9.5 seconds (9.4-11.8)
[2018-12-01 14:56] LABS: MANUAL DIFFERENTIAL MANUAL DIFFERENTIAL (MANUAL DIFF)
[2018-12-01 15:13] LABS: Alanine Aminotransferase 39 U/L (12-78); Albumin Level 3.7 gm/dL (3.4-5.0); Albumin/Globulin Ratio 1.1 (1.1-1.8); Alkaline Phosphatase 158 U/L (46-116); Anion Gap 16.1 mEq/L (5-15); Aspartate Amino Transferase 22 U/L (15-37); Bilirubin,Total 0.3 mg/dL (0.2-1.0); Blood Urea Nitrogen 32 mg/dL (7-18); Calcium 9.4 mg/dL (8.5-10.1); Carbon Dioxide 25 mmol/L (21.0-32.0); Chloride 103 mmol/L (98-107); Creatinine,Serum 1.52 mg/dL (0.55-1.02); Estimated Glomerular Filt Rate 36 ml/min (>60); GFR (African American) 43 ML/MIN (>60); Globulin 3.3 gm/dl (1.3-3.2); Glucose 98 mg/dL (74-106); Potassium 4.1 mmoL/L (3.5-5.1); Sodium 140 mmol/L (136-145)
[2018-12-01 15:54] LABS: Eosinophils % 1 % (0-3); Lymphocytes % 16 % (10-50); Monocytes % 5 % (2-9); Neutrophils % 78 % (42-76); Platelet Estimate Normal; RBC Morphology Normal; Total Cells Counted 100
== END ==
PROVIDERS: PCP Nurse Practitioner Family; Visit Provider Nurse Practitioner Family
DX: Z01.818 Encounter for other preprocedural examination (principal); Z01.811 Encounter for preprocedural respiratory examination; J45.50 Severe persistent asthma, uncomplicated; R06.02 Shortness of breath
CPT/HCPCS: 36415; 71046; 80053; 81001; 83036; 85007; 85025; 85610; 85730; 93005

== ENCOUNTER → 2019-01-09 12:25 | Outpatient (CLI) | payer OTHER, SELFPAY ==
[2019-01-09 12:53] LABS: Basophils # 0.1 K/mm3 (0-0.2); Basophils % 0.5 % (0.1-2.0); Eosinophils # 0.2 K/mm3 (0.0-0.4); Hematocrit 38.7 % (37.0-47.0); Hemoglobin 12.4 g/dL (12.2-16.2); Lymphocytes # 2.4 K/mm3 (0.7-4.5); Lymphocytes % 16.8 % (10-50); Mean Corpuscular HGB Conc 32.1 g/dL (31.8-35.4); Mean Corpuscular Hemoglobin 29.1 pg (27.0-31.2); Mean Corpuscular Volume 90.4 fl (81-99); Mean Platelet Volume 7.1 fl (7.4-10.4); Monocytes # 0.7 K/mm3 (0.1-1.0); Monocytes % 4.7 % (1.7-9.3); Platelet Count 437 K/mm3 (142-424); Red Blood Count 4.28 M/mm3 (4.20-5.40); Red Cell Distribution Width 14.4 % (11.5-17.5); White Blood Count 14.3 K/mm3 (4.8-10.8)
[2019-01-09 13:58] LABS: Alanine Aminotransferase 42 U/L (12-78); Albumin Level 3.6 gm/dL (3.4-5.0); Albumin/Globulin Ratio 1.2 (1.1-1.8); Alkaline Phosphatase 139 U/L (46-116); Anion Gap 12.4 mEq/L (5-15); Aspartate Amino Transferase 33 U/L (15-37); Bilirubin,Total 0.3 mg/dL (0.2-1.0); Blood Urea Nitrogen 17 mg/dL (7-18); Calcium 8.8 mg/dL (8.5-10.1); Carbon Dioxide 29 mmol/L (21.0-32.0); Chloride 102 mmol/L (98-107); Creatinine,Serum 1.17 mg/dL (0.55-1.02); Estimated Glomerular Filt Rate 48 ml/min (>60); GFR (African American) 58 ML/MIN (>60); Glucose 102 mg/dL (74-106); Potassium 4.4 mmoL/L (3.5-5.1); Sodium 139 mmol/L (136-145); Total Protein,Serum 6.6 gm/dL (6.4-8.2)
== END ==
PROVIDERS: Visit Provider Nurse Practitioner Family
DX: R60.9 Edema, unspecified (principal); D72.829 Elevated white blood cell count, unspecified
CPT/HCPCS: 36415; 80053; 83880; 85025

== ENCOUNTER → 2019-01-20 14:44 | Outpatient (CLI) | payer OTHER, SELFPAY ==
--- NOTE | 2019-01-20 14:47 | CA_ITS ---
APPROVED REPORT EXAM: Comprehensive 2D, Doppler, and color-flow Echocardiogram Manager English: Emily Yo CRT Ht: 5 ft 5 in Wt: 251lbs BSA: 2.18 BP: 124/82 mmHg Indications: SOB, cp, COPD, fatigue, edema, HTN, SOB, obesity, Hyperlipidemia 2D Dimensions LVOT 2.18 cm (M/F) 1.5-2.5 M-Mode Dimensions RVDd 1.53 cm (0.9-2.6) LVDd 6.74 cm (3.5-5.7) LVDs 5.49 cm (3.5-5.7) IVSd 1.05 cm (0.6-1.1) PWd 1.17 cm (0.6-1.1) EF (Teich) 37.40% FS 18.50% EDV (Teich) 234.50 mL ESV (Teich) 146.80 mL LV Diastology E/A Ratio 0.84 Mitral Valve MV A Velocity 79.00 (40-130 cm/s) Left Ventricle Left atrium is mildly enlarged, left ventricle is normal size, mild concentric left ventricular hypertrophy, visually estimated ejection fraction 55% with no regional wall motion abnormality, grade 1 diastolic dysfunction seen without tissue Doppler evidence of raise left atrial pressure. Right Ventricle Right atrium and right ventricular normal size and contractility. Aortic Valve Aortic valve is thickened and calcified leaflet chordae display good mobility. There is no aortic stenosis aortic insufficiency. Mitral Valve Mitral valve is grossly normal, there is mild mitral regurgitation. Tricuspid Valve Tricuspid valve is grossly normal, there is mild tricuspid regurgitation. Pulmonic Valve Pulmonic valve is poorly visualized. Great Vessels Aortic root is normal size. Pericardium No significant pericardial effusion noted. Conclusion 1. Mildly enlarged left atrium, normal left ventricular size, mild concentric left ventricular hypertrophy, visually estimated ejection fraction 55% with no regional wall motion abnormality, grade 1 diastolic dysfunction seen without tissue Doppler evidence of raise left atrial pressure. 2. Mild mitral and tricuspid regurgitation. 3. No significant pericardial effusion noted. Electronically signed by : Matt Cooney, 01/23/2019 20:48:51
[2019-01-20 15:51] LABS: Anion Gap 11.5 mEq/L (5-15); Blood Urea Nitrogen 27 mg/dL (7-18); Carbon Dioxide 28 mmol/L (21.0-32.0); Chloride 103 mmol/L (98-107); Creatinine,Serum 1.47 mg/dL (0.55-1.02); Estimated Glomerular Filt Rate 37 ml/min (>60); GFR (African American) 45 ML/MIN (>60); Glucose 78 mg/dL (74-106); Potassium 4.5 mmoL/L (3.5-5.1); Sodium 138 mmol/L (136-145)
== END ==
PROVIDERS: PCP Nurse Practitioner; Visit Provider Internal Medicine Cardiovascular Disease
DX: R06.00 Dyspnea, unspecified (principal); E78.5 Hyperlipidemia, unspecified; I10 Essential (primary) hypertension; I25.10 Atherosclerotic heart disease of native coronary artery without angina pectoris
CPT/HCPCS: 36415; 80048; 83880; 93306

== ENCOUNTER → 2019-02-03 11:30 | Outpatient (CLI) | payer OTHER, SELFPAY ==
[2019-02-03 12:06] LABS: Anion Gap 16.5 mEq/L (5-15); Blood Urea Nitrogen 23 mg/dL (7-18); Carbon Dioxide 24 mmol/L (21.0-32.0); Chloride 102 mmol/L (98-107); Creatinine,Serum 1.24 mg/dL (0.55-1.02); Estimated Glomerular Filt Rate 45 ml/min (>60); GFR (African American) 55 ML/MIN (>60); Glucose 125 mg/dL (74-106); Potassium 4.5 mmoL/L (3.5-5.1); Sodium 138 mmol/L (136-145)
== END ==
PROVIDERS: Visit Provider Physician Assistant
DX: R06.00 Dyspnea, unspecified (principal); R60.9 Edema, unspecified; E78.5 Hyperlipidemia, unspecified; I10 Essential (primary) hypertension
CPT/HCPCS: 36415; 80048

== ENCOUNTER → 2019-02-17 12:22 | Outpatient (CLI) | payer OTHER, SELFPAY ==
[2019-02-17 13:02] LABS: Basophils # 0.1 K/mm3 (0-0.2); Basophils % 0.3 % (0.1-2.0); Eosinophils # 0.1 K/mm3 (0.0-0.4); Eosinophils % 0.8 % (0.1-12.0); Hematocrit 42.6 % (37.0-47.0); Hemoglobin 13.2 g/dL (12.2-16.2); Lymphocytes # 0.9 K/mm3 (0.7-4.5); Lymphocytes % 4.6 % (10-50); Mean Corpuscular Hemoglobin 27.9 pg (27.0-31.2); Mean Corpuscular Volume 90.1 fl (81-99); Monocytes # 0.3 K/mm3 (0.1-1.0); Monocytes % 1.7 % (1.7-9.3); Neutrophils % 92.5 % (37.0-80.0); Platelet Count 453 K/mm3 (142-424); Red Blood Count 4.73 M/mm3 (4.20-5.40); Red Cell Distribution Width 14.1 % (11.5-17.5); White Blood Count 18.4 K/mm3 (4.8-10.8)
[2019-02-17 13:18] LABS: MANUAL DIFFERENTIAL MANUAL DIFFERENTIAL (MANUAL DIFF)
[2019-02-17 14:07] LABS: Alanine Aminotransferase 30 U/L (12-78); Albumin Level 3.7 gm/dL (3.4-5.0); Albumin/Globulin Ratio 1.3 (1.1-1.8); Alkaline Phosphatase 108 U/L (46-116); Amylase 67 U/L (25-115); Anion Gap 17.2 mEq/L (5-15); Aspartate Amino Transferase 18 U/L (15-37); Bilirubin,Total 0.3 mg/dL (0.2-1.0); Blood Urea Nitrogen 24 mg/dL (7-18); Calcium 8.7 mg/dL (8.5-10.1); Carbon Dioxide 25 mmol/L (21.0-32.0); Chloride 104 mmol/L (98-107); Creatinine,Serum 1.17 mg/dL (0.55-1.02); Estimated Glomerular Filt Rate 48 ml/min (>60); GFR (African American) 58 ML/MIN (>60); Globulin 2.9 gm/dl (1.3-3.2); Glucose 122 mg/dL (74-106); Lipase 295 u/L (73-393); Potassium 5.2 mmoL/L (3.5-5.1); Sodium 141 mmol/L (136-145); Total Protein,Serum 6.6 gm/dL (6.4-8.2)
[2019-02-17 16:08] LABS: Eosinophils % 1 % (0-3); Lymphocytes % 7 % (10-50); Monocytes % 3 % (2-9); Neutrophils % 89 % (42-76); Total Cells Counted 100
[2019-02-17 16:09] LABS: Anisocytosis 1+; Hypochromasia 1+; Platelet Estimate Normal
== END ==
PROVIDERS: PCP Nurse Practitioner Family; Visit Provider Nurse Practitioner Family
DX: M25.562 Pain in left knee (principal); R10.10 Upper abdominal pain, unspecified; R11.0 Nausea
CPT/HCPCS: 36415; 80053; 82150; 83690; 85007; 85025

== ENCOUNTER → 2019-02-28 10:24 | Outpatient (CLI) | payer OTHER, SELFPAY | PROVIDERS: PCP Nurse Practitioner Family; Visit Provider Nurse Practitioner Family | DX: M25.562 Pain in left knee (principal) ==

== ENCOUNTER → 2019-05-18 12:17 | Outpatient (CLI) | payer OTHER, SELFPAY ==
[2019-05-18 17:21] LABS: Anion Gap 15.4 mEq/L (5-15); Blood Urea Nitrogen 21 mg/dl (7-17); Calcium 9.8 mg/dl (8.4-10.2); Carbon Dioxide 26 mmol/L (22.0-30.0); Chloride 101 mmol/L (98-107); Estimated Glomerular Filt Rate 58 ml/min (>60); GFR (African American) 70 ML/MIN (>60); Glucose 103 mg/dl (74-100); Potassium 5.4 mmoL/L (3.5-5.1); Sodium 137 mmol/L (136-145)
[2019-05-18 17:27] LABS: NT Pro Brain Natriuretic Pep. 63.7 pg/mL (0-125)
== END ==
PROVIDERS: Visit Provider Internal Medicine Cardiovascular Disease
DX: Z01.818 Encounter for other preprocedural examination (principal); R07.9 Chest pain, unspecified; R06.02 Shortness of breath; E78.49 Other hyperlipidemia; I10 Essential (primary) hypertension; K21.9 Gastro-esophageal reflux disease without esophagitis; R53.83 Other fatigue; R60.9 Edema, unspecified; R94.31 Abnormal electrocardiogram [ECG] [EKG]
CPT/HCPCS: 36415; 80048; 83880

== ENCOUNTER → 2019-05-25 15:24 | Outpatient (CLI) | payer OTHER, SELFPAY ==
[2019-05-25 16:10] LABS: Chloride 105 mmol/L (98-107); Sodium 139 mmol/L (136-145)
[2019-05-25 16:11] LABS: Potassium 5.3 mmoL/L (3.5-5.1)
[2019-05-25 16:13] LABS: Blood Urea Nitrogen 16 mg/dl (7-17); Estimated Glomerular Filt Rate 65 ml/min (>60); GFR (African American) 79 ML/MIN (>60)
[2019-05-25 16:14] LABS: Anion Gap 13.3 mEq/L (5-15); Calcium 9.5 mg/dl (8.4-10.2); Carbon Dioxide 26 mmol/L (22.0-30.0); Glucose 92 mg/dl (74-100)
== END ==
PROVIDERS: Visit Provider Internal Medicine Cardiovascular Disease
DX: Z01.818 Encounter for other preprocedural examination (principal); R07.9 Chest pain, unspecified; R06.02 Shortness of breath; E78.5 Hyperlipidemia, unspecified; I10 Essential (primary) hypertension; I51.89 Other ill-defined heart diseases; K21.9 Gastro-esophageal reflux disease without esophagitis; R53.83 Other fatigue; R60.9 Edema, unspecified; R94.31 Abnormal electrocardiogram [ECG] [EKG]
CPT/HCPCS: 36415; 80048

== ENCOUNTER → 2019-06-23 15:13 | Outpatient (CLI) | payer OTHER, SELFPAY ==
--- NOTE | 2019-06-23 15:29 | XR_ITS ---
PROCEDURE: XR SHOULDER RT MIN 2V CLINICAL INDICATION: FALL, C/O RT SHOULDER PAIN AND SWELLING COMPARISON: No exams were available for comparison FINDINGS: No fracture or dislocation. There are mild hypertrophic changes along the undersurface of the a chromium causing some mild subacromial narrowing. IMPRESSION: No acute fracture. Mild hypertrophic changes of the inferior aspect of the a chromium Dictated by: Chucky Bruce MD 06/23/2019 15:58 Electronically signed by Chucky Bruce MD in [place] 06/23/2019 15:58
[2019-06-23 15:32] LABS: Basophils # 0.1 K/mm3 (0-0.2); Basophils % 0.6 % (0.1-2.0); Eosinophils # 0.7 K/mm3 (0.0-0.4); Eosinophils % 6.6 % (0.1-12.0); Hematocrit 39.5 % (37.0-47.0); Hemoglobin 12.6 g/dL (12.2-16.2); Lymphocytes # 2.3 K/mm3 (0.7-4.5); Lymphocytes % 23.4 % (10-50); Mean Corpuscular HGB Conc 31.8 g/dL (31.8-35.4); Mean Corpuscular Volume 85.1 fl (81-99); Mean Platelet Volume 8.2 fl (7.4-10.4); Monocytes # 0.7 K/mm3 (0.1-1.0); Monocytes % 6.6 % (1.7-9.3); Neutrophils # 6.2 K/mm3 (1.8-7.8); Neutrophils % 62.7 % (37.0-80.0); Platelet Count 520 K/mm3 (142-424); Red Blood Count 4.65 M/mm3 (4.20-5.40); Red Cell Distribution Width 14.5 % (11.5-17.5); White Blood Count 9.9 K/mm3 (4.8-10.8)
[2019-06-23 17:12] LABS: Potassium 5.5 mmoL/L (3.5-5.1); Uric Acid 5.2 mg/dl (2.5-6.2)
== END ==
PROVIDERS: Visit Provider Nurse Practitioner Family
DX: S49.91XA Unspecified injury of right shoulder and upper arm, initial encounter (principal); M25.562 Pain in left knee; M25.561 Pain in right knee; E87.5 Hyperkalemia; Z87.39 Personal history of other diseases of the musculoskeletal system and connective tissue
CPT/HCPCS: 36415; 73030; 84132; 84550; 85025

== ENCOUNTER → 2019-07-13 11:37 | Outpatient (CLI) | payer OTHER, SELFPAY ==
[2019-07-13 13:18] LABS: Anion Gap 13.9 mEq/L (5-15); Blood Urea Nitrogen 15 mg/dl (7-17); Calcium 9.6 mg/dl (8.4-10.2); Carbon Dioxide 24 mmol/L (22.0-30.0); Chloride 103 mmol/L (98-107); Estimated Glomerular Filt Rate 87 ml/min (>60); GFR (African American) 105 ML/MIN (>60); Glucose 112 mg/dl (74-100); Potassium 4.9 mmoL/L (3.5-5.1); Sodium 136 mmol/L (136-145)
== END ==
PROVIDERS: Visit Provider Internal Medicine Cardiovascular Disease
DX: R06.00 Dyspnea, unspecified (principal); R60.9 Edema, unspecified; E78.5 Hyperlipidemia, unspecified; I10 Essential (primary) hypertension; K21.9 Gastro-esophageal reflux disease without esophagitis
CPT/HCPCS: 36415; 80048

== ENCOUNTER → 2019-08-03 10:59 | Outpatient (CLI) | payer OTHER, SELFPAY ==
[2019-08-03 14:09] LABS: Chloride 101 mmol/L (98-107); Sodium 139 mmol/L (136-145)
[2019-08-03 14:10] LABS: Potassium 4.7 mmoL/L (3.5-5.1)
[2019-08-03 14:12] LABS: Blood Urea Nitrogen 20 mg/dl (7-17); Estimated Glomerular Filt Rate 58 ml/min (>60); GFR (African American) 70 ML/MIN (>60)
[2019-08-03 14:13] LABS: Anion Gap 15.7 mEq/L (5-15); Calcium 9.5 mg/dl (8.4-10.2); Carbon Dioxide 27 mmol/L (22.0-30.0); Glucose 112 mg/dl (74-100)
[2019-08-03 14:19] LABS: NT Pro Brain Natriuretic Pep. 114 pg/mL (0-125)
== END ==
PROVIDERS: Visit Provider Internal Medicine Cardiovascular Disease
DX: R06.00 Dyspnea, unspecified (principal); Z01.810 Encounter for preprocedural cardiovascular examination; I25.10 Atherosclerotic heart disease of native coronary artery without angina pectoris; E78.5 Hyperlipidemia, unspecified; I10 Essential (primary) hypertension; K21.9 Gastro-esophageal reflux disease without esophagitis; R60.9 Edema, unspecified
CPT/HCPCS: 36415; 80048; 83880

== ENCOUNTER → 2019-08-14 10:01 | Outpatient (CLI) | payer OTHER, SELFPAY ==
[2019-08-14 11:50] LABS: Chloride 104 mmol/L (98-107); Potassium 4.6 mmoL/L (3.5-5.1); Sodium 137 mmol/L (136-145)
[2019-08-14 11:53] LABS: Anion Gap 10.6 mEq/L (5-15); Blood Urea Nitrogen 18 mg/dl (7-17); Carbon Dioxide 27 mmol/L (22.0-30.0); Estimated Glomerular Filt Rate 52 ml/min (>60); GFR (African American) 62 ML/MIN (>60)
[2019-08-14 11:54] LABS: Calcium 9.2 mg/dl (8.4-10.2); Glucose 110 mg/dl (74-100)
== END ==
PROVIDERS: Visit Provider Internal Medicine Cardiovascular Disease
DX: I10 Essential (primary) hypertension (principal); I25.10 Atherosclerotic heart disease of native coronary artery without angina pectoris; R07.9 Chest pain, unspecified; R06.00 Dyspnea, unspecified; R53.83 Other fatigue; R60.9 Edema, unspecified
CPT/HCPCS: 36415; 80048

== ENCOUNTER → 2019-08-22 15:16 | Outpatient (CLI) | payer OTHER, SELFPAY ==
--- NOTE | 2019-08-22 15:21 | MR_ITS ---
PROCEDURE: MR HEAD/BRAIN WO CON CLINICAL INDICATION: MEMORY LOSS COMPARISON: No exams were available for comparison TECHNIQUE: Standard unenhanced MRI brain protocol FINDINGS: There are no restricted diffusion abnormalities. The vertebrobasilar vascular flow voids, 7th and 8th nerves, sinuses and orbits are unremarkable. Partially empty sella is noted. There are no abnormal areas of T2 prolongation or hemorrhage. IMPRESSION: Partially empty sella otherwise negative Dictated by: Gary Badillo 08/23/2019 09:28 Electronically signed by Gary Badillo in [facility] 08/23/2019 09:28
== END ==
PROVIDERS: PCP Nurse Practitioner Family; Visit Provider Nurse Practitioner Family
DX: R41.3 Other amnesia (principal)
CPT/HCPCS: 70551

== ENCOUNTER → 2019-11-07 13:08 | Outpatient (CLI) | payer OTHER, SELFPAY ==
--- NOTE | 2019-11-07 13:19 | XR_ITS ---
PROCEDURE: XR THORACIC SPINE 3V CLINICAL INDICATION: THORACIC BACK PAIN COMPARISON: CR XR CHEST 2V from 12/01/2018 FINDINGS: There is mild upper thoracic scoliosis convex left and mid to lower thoracic scoliosis convex right. There is degenerative disc disease in the mid lower thoracic spine with kyphosis and mild wedging of T 11 and T12 which is chronic. Small anterior osteophytes are noted as well. Other findings:None. IMPRESSION: Degenerative changes with scoliosis and kyphosis. No change with no acute finding Dictated by: Chucky Bruce MD 11/07/2019 13:44 Chucky Bruce MD in [place] 11/07/2019 13:44
[2019-11-07 16:30] LABS: Chloride 101 mmol/L (98-107)
[2019-11-07 16:31] LABS: Potassium 5.6 mmoL/L (3.5-5.1); Sodium 139 mmol/L (136-145)
[2019-11-07 16:33] LABS: Blood Urea Nitrogen 27 mg/dl (7-17); Estimated Glomerular Filt Rate 39 ml/min (>60); GFR (African American) 47 ML/MIN (>60)
[2019-11-07 16:34] LABS: Anion Gap 16.6 mEq/L (5-15); Carbon Dioxide 27 mmol/L (22.0-30.0); Glucose 80 mg/dl (74-100)
== END ==
PROVIDERS: Visit Provider Internal Medicine Cardiovascular Disease
DX: R06.00 Dyspnea, unspecified (principal); R60.9 Edema, unspecified; E78.5 Hyperlipidemia, unspecified; I10 Essential (primary) hypertension; K21.9 Gastro-esophageal reflux disease without esophagitis; M54.6 Pain in thoracic spine
CPT/HCPCS: 36415; 72072; 80048

== ENCOUNTER → 2019-11-09 11:23 | Outpatient (CLI) | payer OTHER, SELFPAY ==
[2019-11-09 13:15] LABS: Blood Urea Nitrogen 24 mg/dl (7-17); Carbon Dioxide 25 mmol/L (22.0-30.0); Chloride 101 mmol/L (98-107); Estimated Glomerular Filt Rate 52 ml/min (>60); GFR (African American) 62 ML/MIN (>60); Glucose 84 mg/dl (74-100); Sodium 140 mmol/L (136-145)
[2019-11-09 13:21] LABS: NT Pro Brain Natriuretic Pep. 124 pg/mL (0-125)
[2019-11-11 14:39] LABS: Covid-19 Nasal PCR Sendout Lex Not Detected
== END ==
PROVIDERS: Visit Provider Internal Medicine Cardiovascular Disease
DX: Z20.828 Contact with and (suspected) exposure to other viral communicable diseases (principal); I10 Essential (primary) hypertension; I25.10 Atherosclerotic heart disease of native coronary artery without angina pectoris; E78.5 Hyperlipidemia, unspecified; R06.00 Dyspnea, unspecified; R60.9 Edema, unspecified; K21.9 Gastro-esophageal reflux disease without esophagitis
CPT/HCPCS: 36415; 80048; 83880; U0004

== ENCOUNTER → 2019-11-09 13:48 | Outpatient (CLI) | payer OTHER, SELFPAY | PROVIDERS: PCP Nurse Practitioner Family; Visit Provider Nurse Practitioner Family | DX: Z20.828 Contact with and (suspected) exposure to other viral communicable diseases (principal) ==

== ENCOUNTER → 2019-11-16 10:48 | Outpatient (CLI) | payer OTHER, SELFPAY ==
--- NOTE | 2019-11-12 14:16 | PC.NURSE ---
Pt called for results of covid swab, results given after pt verified identity
[2019-11-16 12:13] LABS: Chloride 99 mmol/L (98-107); Potassium 5.4 mmoL/L (3.5-5.1); Sodium 141 mmol/L (136-145)
[2019-11-16 12:16] LABS: Blood Urea Nitrogen 27 mg/dl (7-17); Estimated Glomerular Filt Rate 47 ml/min (>60); GFR (African American) 56 ML/MIN (>60)
[2019-11-16 12:17] LABS: Anion Gap 16.4 mEq/L (5-15); Calcium 9.9 mg/dl (8.4-10.2); Carbon Dioxide 31 mmol/L (22.0-30.0); Glucose 115 mg/dl (74-100)
== END ==
PROVIDERS: Visit Provider Internal Medicine Cardiovascular Disease
DX: E78.5 Hyperlipidemia, unspecified (principal); I10 Essential (primary) hypertension; I25.10 Atherosclerotic heart disease of native coronary artery without angina pectoris; R06.00 Dyspnea, unspecified; K21.9 Gastro-esophageal reflux disease without esophagitis; R60.9 Edema, unspecified
CPT/HCPCS: 36415; 80048

== ENCOUNTER → 2019-11-28 10:29 | Outpatient (CLI) | payer OTHER, SELFPAY ==
--- NOTE | 2019-11-28 10:34 | MM_ITS ---
PROCEDURE: MM DIG SCREENING MAMM BI W/CAD Digital Breast Tomosynthesis Included CLINICAL INDICATION: SCREENING There is a history of breast cancer patient's maternal aunt. COMPARISON: MG DMSB DIGITAL MAMM-SCREEN BILATERAL from 01/28/2012 MG DMSB DIG MAMM-SCREEN SATHYA from 02/12/2014 MG SCBI MM Dig screening mamm BI w/CAD from 12/20/2017 TECHNIQUE: Standard CC and MLO images and 3D Tomosynthesis was obtained. R2 CAD reviewed. FINDINGS: Moderate diffuse fibroglandular densities are seen throughout both breasts. There are stable benign-appearing nodular densities right breast. There is a mole marker axillary tail left breast. There couple of benign-appearing calcifications in each breast. There is no suspicious lesion in either breast and no suspicious microcalcifications. IMPRESSION: Fibrofatty parenchyma with no suspicious lesions seen BI-RAD Category: 2 Benign Finding(s) FOLLOW-UP: 1YR 1 Year Follow-up (A letter has been sent to the patient regarding results of the study.) Dictated by: Dr. Lazaro Wetzel MD 12/04/2019 08:40 Dr. Lazaro Wetzel MD in [place] 12/04/2019 08:40
--- NOTE | 2019-11-28 10:34 | XR_ITS ---
PROCEDURE: XR DEXA AXIAL SKELETON CLINICAL HISTORY: POST MENOPAUSAL COMPARISON: No exams were available for comparison FINDINGS: The right hip BMD is 0.701 with a T-score of -2.0. The left hip BMD is 0.562 with a T-score of -2.6. The lumbar spine BMD is 0.815 with a T-score of -2.1. IMPRESSION: This patient is considered osteoporotic according to the World Health Organization criteria. Fracture risk is high. Treatment is advised. Based on these results a follow-up exam is recommended in 1 year. Dictated by: Chucky Bruce MD 11/29/2019 08:10 Chucky Bruce MD in [place] 11/29/2019 08:10
== END ==
PROVIDERS: PCP Nurse Practitioner Family; Visit Provider Nurse Practitioner Family
DX: Z12.31 Encounter for screening mammogram for malignant neoplasm of breast (principal); Z13.820 Encounter for screening for osteoporosis; Z78.0 Asymptomatic menopausal state; M19.91 Primary osteoarthritis, unspecified site
CPT/HCPCS: 77063; 77067; 77080

== ENCOUNTER → 2020-01-23 12:52 | Outpatient (CLI) | payer OTHER, SELFPAY ==
[2020-01-24 15:47] LABS: Covid-19 Nasal PCR Sendout Lex Not Detected
== END ==
PROVIDERS: PCP Nurse Practitioner Family; Visit Provider Family Medicine
DX: Z03.818 Encounter for observation for suspected exposure to other biological agents ruled out (principal)
CPT/HCPCS: U0004

== ENCOUNTER → 2020-04-05 15:52 | Outpatient (CLI) | payer OTHER, SELFPAY | PROVIDERS: PCP Nurse Practitioner Family; Visit Provider Nurse Practitioner Family | DX: Z20.822 Contact with and (suspected) exposure to COVID-19 (principal) | CPT/HCPCS: U0003 ==

== ENCOUNTER → 2020-04-22 15:52 | Outpatient (CLI) | payer OTHER, SELFPAY | PROVIDERS: PCP Nurse Practitioner Family; Visit Provider Anesthesiology | DX: Z01.818 Encounter for other preprocedural examination (principal); Z20.822 Contact with and (suspected) exposure to COVID-19 | CPT/HCPCS: U0003 ==

== ENCOUNTER → 2020-05-07 16:13 | Outpatient (CLI) | payer OTHER, SELFPAY ==
[2020-05-07 17:02] LABS: Basophils # 0.1 K/mm3 (0-0.2); Basophils % 0.6 % (0.1-2.0); Eosinophils # 0.4 K/mm3 (0.0-0.4); Eosinophils % 4.1 % (0.1-12.0); Hemoglobin 13.4 g/dL (12.2-16.2); Lymphocytes # 2.3 K/mm3 (0.7-4.5); Lymphocytes % 21.9 % (10-50); Mean Corpuscular HGB Conc 31.2 g/dL (31.8-35.4); Mean Corpuscular Hemoglobin 25.1 pg (27.0-31.2); Mean Corpuscular Volume 80.5 fl (81-99); Mean Platelet Volume 7.3 fl (7.4-10.4); Monocytes # 0.6 K/mm3 (0.1-1.0); Monocytes % 5.5 % (1.7-9.3); Neutrophils % 67.9 % (37.0-80.0); Platelet Count 493 K/mm3 (142-424); Red Blood Count 5.34 M/mm3 (4.20-5.40); Red Cell Distribution Width 16.7 % (11.5-17.5); White Blood Count 10.3 K/mm3 (4.8-10.8)
[2020-05-07 17:54] LABS: Alanine Aminotransferase 55 U/L (12-78); Albumin Level 4.6 g/dl (3.5-5.0); Albumin/Globulin Ratio 1.5 (1.1-1.8); Alkaline Phosphatase 196 U/L (38-126); Amylase 81 U/L (30-110); Anion Gap 16.2 mEq/L (5-15); Aspartate Amino Transferase 53 U/L (14-36); Bilirubin,Total 0.4 mg/dl (0.2-1.3); Blood Urea Nitrogen 27 mg/dl (7-17); Calcium 9.9 mg/dl (8.4-10.2); Carbon Dioxide 24 mmol/L (22.0-30.0); Chloride 103 mmol/L (98-107); Estimated Glomerular Filt Rate 42 ml/min (>60); GFR (African American) 51 ML/MIN (>60); Glucose 91 mg/dl (74-100); Lipase 341 U/L (23-300); Potassium 5.2 mmoL/L (3.5-5.1); Sodium 138 mmol/L (136-145); Total Protein,Serum 7.6 g/dl (6.3-8.2)
== END ==
PROVIDERS: Visit Provider Nurse Practitioner Family
DX: R10.10 Upper abdominal pain, unspecified (principal); R14.0 Abdominal distension (gaseous); R11.0 Nausea
CPT/HCPCS: 36415; 80053; 82150; 83690; 85025

== ENCOUNTER → 2020-05-16 07:54 | Outpatient (CLI) | payer OTHER, SELFPAY ==
--- NOTE | 2020-05-16 07:57 | US_ITS ---
PROCEDURE: US ABDOMEN LIMITED CLINICAL INDICATION: UPPER ABD PAIN,ABD BLOATING COMPARISON: US ABDLM US abdomen limited from 01/21/2018 FINDINGS: PANCREAS: Pancreas is not well delineated due to overlying bowel gas. CT or MRI without and with contrast with pancreatic protocol may provide further evaluation if clinically desired. LIVER: No focal liver lesions demonstrated. Homogeneous echogenicity. No intrahepatic biliary ductal dilatation evident. There is appropriate direction of blood flow within a non dilated portal vein RIGHT KIDNEY: Unremarkable. Normal size and echogenicity. No hydronephrosis GALLBLADDER: Prior cholecystectomy. Common bile duct is normal 3 mm. IMPRESSION: Unremarkable limited abdominal ultrasound as detailed above Pancreas is not well delineated due to overlying bowel gas. CT or MRI without and with contrast with pancreatic protocol may provide further evaluation if clinically desired. Dictated by: Chucky Bruce MD 05/17/2020 09:46 Chucky Bruce MD in [place] 05/17/2020 09:46
== END ==
PROVIDERS: PCP Nurse Practitioner Family; Visit Provider Nurse Practitioner Family
DX: R10.10 Upper abdominal pain, unspecified (principal); R14.0 Abdominal distension (gaseous)
CPT/HCPCS: 76705

== ENCOUNTER → 2020-05-21 16:27 | Outpatient (CLI) | payer OTHER, SELFPAY ==
[2020-05-21 17:21] LABS: Basophils % 0.2 % (0.1-2.0); Eosinophils # 0.3 K/mm3 (0.0-0.4); Eosinophils % 2.8 % (0.1-12.0); Hematocrit 42.3 % (37.0-47.0); Hemoglobin 13.5 g/dL (12.2-16.2); Lymphocytes # 1.2 K/mm3 (0.7-4.5); Lymphocytes % 11.6 % (10-50); Mean Corpuscular HGB Conc 31.9 g/dL (31.8-35.4); Mean Corpuscular Hemoglobin 25.7 pg (27.0-31.2); Mean Corpuscular Volume 80.5 fl (81-99); Mean Platelet Volume 7.8 fl (7.4-10.4); Monocytes # 0.4 K/mm3 (0.1-1.0); Monocytes % 4.1 % (1.7-9.3); Neutrophils # 8.3 K/mm3 (1.8-7.8); Neutrophils % 81.2 % (37.0-80.0); Platelet Count 426 K/mm3 (142-424); Red Blood Count 5.25 M/mm3 (4.20-5.40); Red Cell Distribution Width 16.6 % (11.5-17.5); White Blood Count 10.2 K/mm3 (4.8-10.8)
[2020-05-21 18:24] LABS: Alanine Aminotransferase 50 U/L (12-78); Albumin Level 4.3 g/dl (3.5-5.0); Albumin/Globulin Ratio 1.6 (1.1-1.8); Alkaline Phosphatase 217 U/L (38-126); Amylase 61 U/L (30-110); Anion Gap 16.3 mEq/L (5-15); Aspartate Amino Transferase 53 U/L (14-36); Bilirubin,Total 0.6 mg/dl (0.2-1.3); Blood Urea Nitrogen 21 mg/dl (7-17); Calcium 9.7 mg/dl (8.4-10.2); Carbon Dioxide 20 mmol/L (22.0-30.0); Chloride 106 mmol/L (98-107); Estimated Glomerular Filt Rate 65 ml/min (>60); GFR (African American) 78 ML/MIN (>60); Globulin 2.7 g/dL (1.3-3.2); Glucose 90 mg/dl (74-100); Lipase 137 U/L (23-300); Potassium 5.3 mmoL/L (3.5-5.1); Sodium 137 mmol/L (136-145); Uric Acid 6.8 mg/dl (2.5-6.2)
== END ==
PROVIDERS: Visit Provider Nurse Practitioner Family
DX: K85.90 Acute pancreatitis without necrosis or infection, unspecified (principal); R11.2 Nausea with vomiting, unspecified
CPT/HCPCS: 36415; 80053; 82150; 83690; 84550; 85025

== ENCOUNTER → 2020-06-07 10:56 | Outpatient (CLI) | payer OTHER, SELFPAY ==
--- NOTE | 2020-06-07 11:02 | MR_ITS ---
PROCEDURE: MR LUMBAR SPINE WO CON CLINICAL INDICATION: LBP Pt c/o lbp radiating down left leg x2yrs. COMPARISON: MR SPLUMBWO MR lumbar spine wo con from 02/03/2018 MR MR HEAD/BRAIN WO CON from 08/22/2019 TECHNIQUE: Standard multiplanar multiecho sequences are performed without contrast. 3-D MIP and myelographic images are also rendered and reviewed FINDINGS: There is normal alignment. The spinal cord ends the L2 level. There is kyphosis of the lower thoracic spine with degenerative disc disease at T10-T11 T11-T12 and T12-L1 with small anterior osteophytes at these levels. L1-L2: Mild degenerative disc disease. L2-L3: Unremarkable. L3-L4: Unremarkable. L4-5: Fluid is present within the facet joints at this level on both sides with mild bilateral lateral recess narrowing and mild foraminal narrowing on both sides. The small synovial cyst is present on the right measuring 5 mm abutting the right L5 nerve root posteriorly. L5-S1: Degenerative disc disease with mild bulging disc. There is moderate left-sided facet and ligamentum hypertrophy causing moderate to severe left-sided foraminal narrowing with mild impingement upon the exiting L5 nerve root. This does not appear significantly changed. No extruded herniated disc is evident. No acute fracture. IMPRESSION: Multilevel lower thoracic and lumbar spondylosis with degenerative degenerative disc disease and facet and ligamentum hypertrophic change. Please see above for detailed description at each level. No extruded herniated disc or bony canal stenosis. Dictated by: Chucky Bruce MD 06/09/2020 09:15 Chucky Bruce MD in [place] 06/09/2020 09:15
== END ==
PROVIDERS: PCP Nurse Practitioner Family; Visit Provider Anesthesiology
DX: M54.16 Radiculopathy, lumbar region (principal)
CPT/HCPCS: 72148; 76376

== ENCOUNTER → 2020-06-14 10:40 | Outpatient (CLI) | payer OTHER, SELFPAY ==
--- NOTE | 2020-06-14 10:43 | CT_ITS ---
PROCEDURE: CT ABDOMEN WO/W CON CLINICAL HISTORY: ACUTE PANCREATITIS, NAUSEA AND VOMITING Mid adb pain No prior COMPARISON: No exams were available for comparison TECHNIQUE: Images performed without and with contrast with dynamic imaging and delayed imaging per pancreatic protocol. Axial images obtained with sagittal and coronal reformats. All CT scans at the facility use one or more dose reduction, viz: automated exposure control, ma/kV adjustment per patient size (including targeted exams where dose is matched to indication, i.e. head), or iterative reconstruction technique. FINDINGS: Atelectatic/fibrotic changes are bases. Coronary artery calcifications are present. There is a small right pericardial node at 14 mm. Pre cardial lymph nodes are measuring 15 and 14 mm. Small nodes are present in the epigastric region and periportal area with periportal nodes measuring up to 2.9 by 1.7 cm. Small peripancreatic lymph nodes are present posterior to the head of the pancreas. There is increased density in the tail the pancreas compared to the remaining pancreas. This however is without contour deformity or abnormal enhancement or decreased enhancement and may be related to decreased fatty infiltration of the tail the pancreas compared to the remaining pancreas. No peripancreatic fluid collections or biliary dilatation is evident. There has been a prior cholecystectomy. No focal liver lesion. There is a small umbilical hernia containing fat. No renal or ureteral calculi. No hydronephrosis or renal mass. No evidence of appendicitis. Degenerative changes thoracic and lumbar spine with kyphosis IMPRESSION: 1. There is increased soft tissue density in the tail the pancreas which may only be related to lack of fatty infiltration as compared to the remaining pancreas. No definite mass. Would suggest 3 month follow-up to confirm stability. Alternatively, an MRI could be performed which could further confirm. 2. Scattered mildly prominent lymph nodes the largest in the periportal region. These are nonspecific. Differential diagnosis would include reactive adenopathy versus metastatic disease or early lymphoma. Follow-up suggested to confirm stability. Dictated by: Chucky Bruce MD 06/15/2020 14:42 Chucky Bruce MD in [place] 06/15/2020 14:42
--- NOTE | 2020-06-14 11:01 | CA_ITS ---
APPROVED REPORT EXAM: Comprehensive 2D, Doppler, and color-flow Echocardiogram Technical Education Teacher: Nadine Corona RT(R) Ht: 5 ft 5 in Wt: 250lbs BSA: 2.17 BP: 129/72 mmHg Indications: fatigue, edema, obesity, HTN, SOB, hyperlipidemia, CAD, DD, asthma 2D Dimensions LVOT 2.00 cm (M/F) 1.5-2.5 LA Volume 24.20 mL LA Volume Index 11.15 mL/m2 (M/F) 16-34 M-Mode Dimensions RVDd 2.82 cm (0.9-2.6) LA Diam 3.99 cm (1.9-4.0) LVDd 4.52 cm (3.5-5.7) Ao Diam 2.65 cm (2.0-3.7) LVDs 3.04 cm (3.5-5.7) IVSd 0.89 cm (0.6-1.1) PWd 0.80 cm (0.6-1.1) EF (Teich) 61.20% FS 32.70% EDV (Teich) 93.40 mL TAPSE 1.88 (<1.7) ESV (Teich) 36.20 mL LV Diastology E Decel Time 223.00 (160-240 msec) E/A Ratio 0.8 MED E' 7.30 (< 7 cm/sec) E'/MED E' Ratio 9.93 (>14) LAT E' 5.80 (<10 cm/sec) E/LAT E' Ratio 12.50 (>14) Mitral Valve MV E Max Darrell. 73.00 (40-130 cm/s) MV A Velocity 90.00 (40-130 cm/s) E/A Ratio 0.81 MV Decel. Time 223.00 (160-240 ms) MV PHT 65.00 ms Left Ventricle Left atrium is mildly enlarged, left ventricle is normal size, mild concentric left ventricular hypertrophy, visually estimated ejection fraction 55% with no regional wall motion abnormality, grade 1 diastolic dysfunction seen without tissue Doppler evidence of raise left atrial pressure, endocardial surfaces are poorly visualized. Right Ventricle Right atrium and right ventricle are mildly enlarged with normal contractility. Aortic Valve Aortic valve is minimally thickened and fibrosed, there is no aortic stenosis or aortic insufficiency. Mitral Valve Mitral valve is grossly normal, there is trace mitral regurgitation. Tricuspid Valve Tricuspid grossly normal, there is trace tricuspid regurgitation. Pulmonic Valve Pulmonic valve is poorly visualized. Great Vessels Aortic root is normal size. Pericardium No significant pericardial effusion noted. Conclusion 1. Biatrial enlargement, normal left ventricular size, mild concentric left ventricular hypertrophy, visually estimated ejection fraction 55% with no regional wall motion abnormality, grade 1 diastolic dysfunction seen without tissue Doppler evidence of raise left atrial pressure. 2. Mildly enlarged right ventricle with normal contractility. 3. Trace mitral and tricuspid regurgitation. 4. No significant pericardial effusion noted. Electronically signed by : Matt Cooney, 06/14/2020 14:27:57
[2020-06-14 11:13] LABS: Blood Urea Nitrogen 25 mg/dl (7-17); Estimated Glomerular Filt Rate 42 ml/min (>60); GFR (African American) 51 ML/MIN (>60)
== END ==
PROVIDERS: PCP Nurse Practitioner Family; Visit Provider Urology
DX: R06.02 Shortness of breath (principal); R10.10 Upper abdominal pain, unspecified; K85.90 Acute pancreatitis without necrosis or infection, unspecified; R11.2 Nausea with vomiting, unspecified; R14.0 Abdominal distension (gaseous); E78.49 Other hyperlipidemia; I10 Essential (primary) hypertension; I25.10 Atherosclerotic heart disease of native coronary artery without angina pectoris; R60.9 Edema, unspecified; M25.50 Pain in unspecified joint
CPT/HCPCS: 36415; 74170; 82565; 84520; 93306; Q9967

== ENCOUNTER → 2020-07-04 16:30 | Outpatient (CLI) | payer OTHER, SELFPAY ==
[2020-07-04 17:12] LABS: Basophils # 0.1 K/mm3 (0-0.2); Basophils % 0.6 % (0.1-2.0); Eosinophils # 0.5 K/mm3 (0.0-0.4); Hematocrit 42.3 % (37.0-47.0); Hemoglobin 13.3 g/dL (12.2-16.2); Lymphocytes # 2.3 K/mm3 (0.7-4.5); Lymphocytes % 23.5 % (10-50); Mean Corpuscular HGB Conc 31.4 g/dL (31.8-35.4); Mean Corpuscular Hemoglobin 26.4 pg (27.0-31.2); Mean Corpuscular Volume 84.1 fl (81-99); Mean Platelet Volume 7.6 fl (7.4-10.4); Monocytes # 0.6 K/mm3 (0.1-1.0); Monocytes % 5.8 % (1.7-9.3); Neutrophils # 6.5 K/mm3 (1.8-7.8); Neutrophils % 65.2 % (37.0-80.0); Platelet Count 414 K/mm3 (142-424); Red Blood Count 5.04 M/mm3 (4.20-5.40); Red Cell Distribution Width 16.2 % (11.5-17.5)
[2020-07-04 17:38] LABS: NT Pro Brain Natriuretic Pep. 83.4 pg/mL (0-125)
[2020-07-04 17:40] LABS: Blood Urea Nitrogen 22 mg/dl (7-17); Estimated Glomerular Filt Rate 46 ml/min (>60); GFR (African American) 56 ML/MIN (>60)
== END ==
PROVIDERS: Nurse Practitioner Family; Visit Provider Internal Medicine Cardiovascular Disease
DX: R06.02 Shortness of breath (principal); I25.10 Atherosclerotic heart disease of native coronary artery without angina pectoris; E78.49 Other hyperlipidemia; I10 Essential (primary) hypertension; R60.9 Edema, unspecified
CPT/HCPCS: 36415; 82565; 83880; 84520; 85025

== ENCOUNTER → 2020-08-06 16:56 | Outpatient (CLI) | payer OTHER, SELFPAY ==
[2020-08-06 17:43] LABS: Basophils # 0.1 K/mm3 (0-0.2); Basophils % 0.6 % (0.1-2.0); Eosinophils # 0.6 K/mm3 (0.0-0.4); Eosinophils % 5.8 % (0.1-12.0); Hematocrit 42.8 % (37.0-47.0); Hemoglobin 13.6 g/dL (12.2-16.2); Lymphocytes # 2.6 K/mm3 (0.7-4.5); Lymphocytes % 25.8 % (10-50); Mean Corpuscular HGB Conc 31.8 g/dL (31.8-35.4); Mean Corpuscular Hemoglobin 26.3 pg (27.0-31.2); Mean Corpuscular Volume 82.5 fl (81-99); Mean Platelet Volume 7.5 fl (7.4-10.4); Monocytes # 0.6 K/mm3 (0.1-1.0); Monocytes % 5.8 % (1.7-9.3); Neutrophils # 6.3 K/mm3 (1.8-7.8); Neutrophils % 61.9 % (37.0-80.0); Platelet Count 439 K/mm3 (142-424); Red Blood Count 5.19 M/mm3 (4.20-5.40); White Blood Count 10.2 K/mm3 (4.8-10.8)
[2020-08-06 18:23] LABS: Alanine Aminotransferase 39 U/L (12-78); Albumin Level 4.7 g/dl (3.5-5.0); Albumin/Globulin Ratio 1.7 (1.1-1.8); Alkaline Phosphatase 188 U/L (38-126); Anion Gap 14.6 mEq/L (5-15); Aspartate Amino Transferase 43 U/L (14-36); Bilirubin,Total 0.4 mg/dl (0.2-1.3); Blood Urea Nitrogen 22 mg/dl (7-17); Calcium 9.5 mg/dl (8.4-10.2); Carbon Dioxide 28 mmol/L (22.0-30.0); Chloride 102 mmol/L (98-107); Estimated Glomerular Filt Rate 46 ml/min (>60); GFR (African American) 56 ML/MIN (>60); Globulin 2.8 g/dL (1.3-3.2); Glucose 133 mg/dl (74-100); Potassium 4.6 mmoL/L (3.5-5.1); Sodium 140 mmol/L (136-145); Total Protein,Serum 7.5 g/dl (6.3-8.2)
[2020-08-06 18:54] LABS: Thyroid Stimulating Hormone 1.39 uIU/mL (0.465-4.68)
[2020-08-06 21:20] LABS: Vitamin B12 > 1000 pg/mL (239-931)
== END ==
PROVIDERS: Visit Provider Nurse Practitioner Family
DX: R43.2 Parageusia (principal)
CPT/HCPCS: 36415; 80053; 82607; 82746; 84443; 85025

== ENCOUNTER → 2020-09-23 20:00 | Outpatient (CLI) | payer OTHER, SELFPAY | PROVIDERS: PCP Nurse Practitioner Family; Visit Provider Nurse Practitioner Family | DX: G47.33 Obstructive sleep apnea (adult) (pediatric) (principal); I10 Essential (primary) hypertension; R40.0 Somnolence; G47.00 Insomnia, unspecified; J44.9 Chronic obstructive pulmonary disease, unspecified | CPT/HCPCS: 95811 ==

== ENCOUNTER → 2021-03-18 15:37 | Outpatient (CLI) | payer OTHER, SELFPAY ==
[2021-03-18 16:01] LABS: Basophils # 0.1 K/mm3 (0-0.2); Basophils % 1.2 % (0.1-2.0); Eosinophils # 0.4 K/mm3 (0.0-0.4); Eosinophils % 3.8 % (0.1-12.0); Hematocrit 44.1 % (37.0-47.0); Hemoglobin 14.6 g/dL (12.2-16.2); Lymphocytes # 2.1 K/mm3 (0.7-4.5); Lymphocytes % 20.1 % (10-50); Mean Corpuscular Hemoglobin 27.9 pg (27.0-31.2); Mean Corpuscular Volume 84.3 fl (81-99); Mean Platelet Volume 7.6 fl (7.4-10.4); Monocytes # 0.6 K/mm3 (0.1-1.0); Neutrophils # 7.1 K/mm3 (1.8-7.8); Neutrophils % 68.9 % (37.0-80.0); Platelet Count 420 K/mm3 (142-424); Red Blood Count 5.23 M/mm3 (4.20-5.40); Red Cell Distribution Width 14.8 % (11.5-17.5); White Blood Count 10.2 K/mm3 (4.8-10.8)
[2021-03-18 17:41] LABS: Chloride 104 mmol/L (98-107); Sodium 136 mmol/L (136-145)
[2021-03-18 17:44] LABS: Alanine Aminotransferase 33 U/L (12-78); Albumin Level 4.6 g/dl (3.5-5.0); Albumin/Globulin Ratio 1.8 (1.1-1.8); Alkaline Phosphatase 156 U/L (38-126); Amylase 74 U/L (30-110); Aspartate Amino Transferase 42 U/L (14-36); Bilirubin,Total 0.6 mg/dl (0.2-1.3); Blood Urea Nitrogen 17 mg/dl (7-17); Calcium 9.6 mg/dl (8.4-10.2); Carbon Dioxide 25 mmol/L (22.0-30.0); Estimated Glomerular Filt Rate 57 ml/min (>60); GFR (African American) 69 ML/MIN (>60); Globulin 2.6 g/dL (1.3-3.2); Glucose 101 mg/dl (74-100); Lipase 181 U/L (23-300); Total Protein,Serum 7.2 g/dl (6.3-8.2)
[2021-03-18 17:58] LABS: Troponin I < 0.01 ng/ml (0.00-0.034)
== END ==
PROVIDERS: PCP Nurse Practitioner Family; Visit Provider Nurse Practitioner Family
DX: R07.9 Chest pain, unspecified (principal); R10.10 Upper abdominal pain, unspecified; M10.9 Gout, unspecified
CPT/HCPCS: 36415; 80053; 82150; 83690; 84484; 84550; 85025

== ENCOUNTER → 2021-04-30 10:24 | Outpatient (CLI) | payer OTHER, SELFPAY ==
--- NOTE | 2021-04-30 10:31 | XR_ITS ---
FINAL REPORT CLINICAL HISTORY: PAIN RIGHT SHOULDER FINDINGS: RIGHT SHOULDER: 3 views of the right shoulder were obtained. There is no acute fracture or dislocation. There are mild degenerative changes of the acromioclavicular and the glenohumeral joints. There is no soft tissue abnormality. IMPRESSION: Mild degenerative change. Reviewed, Interpreted and Dictated by Lamonte Jeffery III, MD Transcribed by Nas Fishman Authenticated by Lamonte Jeffery III, MD on 04/30/2021 12:30:11 PM [facility]
--- NOTE | 2021-04-30 10:31 | XR_ITS ---
FINAL REPORT CLINICAL HISTORY: PAIN IN LEFT SHOULDER FINDINGS: LEFT SHOULDER Three views demonstrate no acute fracture or dislocation. There is mild AC joint degenerative change. The visualized bony structures are well aligned. No soft tissue abnormality is seen. IMPRESSION: Mild AC joint degenerative change. Reviewed, Interpreted and Dictated by Lamonte Jeffery III, MD Transcribed by Nas Fishman Authenticated by Lamonte Jeffery III, MD on 04/30/2021 12:30:05 PM [facility]
--- NOTE | 2021-04-30 10:31 | XR_ITS ---
FINAL REPORT CLINICAL HISTORY: CERVICALGIA, FINDINGS: CERVICAL SPINE Multiple views were obtained. There is no acute fracture. There is mild anterolisthesis of C4 on C5. There is mild retrolisthesis of C5 on C6. There are mild degenerative changes. IMPRESSION: Mild degenerative change. Reviewed, Interpreted and Dictated by Lamonte Jeffery III, MD Transcribed by Nas Fishman Authenticated by Lamonte Jeffery III, MD on 04/30/2021 12:30:24 PM [facility]
== END ==
PROVIDERS: PCP Nurse Practitioner Family; Visit Provider Nurse Practitioner Family
DX: M54.2 Cervicalgia (principal); R20.0 Anesthesia of skin; R20.2 Paresthesia of skin; M25.512 Pain in left shoulder; M25.511 Pain in right shoulder
CPT/HCPCS: 72050; 73030

== ENCOUNTER → 2021-05-09 12:08 | Outpatient (CLI) | payer OTHER, SELFPAY | PROVIDERS: PCP Nurse Practitioner Family; Visit Provider Nurse Practitioner Family | DX: Z01.810 Encounter for preprocedural cardiovascular examination (principal); R06.02 Shortness of breath; I25.10 Atherosclerotic heart disease of native coronary artery without angina pectoris; R60.9 Edema, unspecified; E78.2 Mixed hyperlipidemia; I10 Essential (primary) hypertension | CPT/HCPCS: 78452; 93017; A9502; J2785 ==

== ENCOUNTER → 2021-06-05 12:53 | Outpatient (CLI) | payer OTHER, SELFPAY ==
[2021-06-05 14:56] LABS: Anion Gap 13.6 mEq/L (5-15); Blood Urea Nitrogen 20 mg/dl (7-17); Calcium 9.2 mg/dl (8.4-10.2); Carbon Dioxide 26 mmol/L (22.0-30.0); Chloride 104 mmol/L (98-107); Estimated Glomerular Filt Rate 57 ml/min (>60); GFR (African American) 69 ML/MIN (>60); Glucose 89 mg/dl (74-100); Potassium 4.6 mmoL/L (3.5-5.1); Sodium 139 mmol/L (136-145)
== END ==
PROVIDERS: Visit Provider Nurse Practitioner Family
DX: E87.5 Hyperkalemia (principal)
CPT/HCPCS: 36415; 80048

== ENCOUNTER → 2021-07-22 09:25 | Outpatient (CLI) | payer OTHER, SELFPAY ==
--- NOTE | 2021-07-22 09:33 | XR_ITS ---
FINAL REPORT TECHNIQUE: Bone densitometry calculations of the left forearm and left hip were obtained. CLINICAL HISTORY: . osteoporosis COMPARISON: November 28, 2019 FINDINGS: DEXA BONE DENSITY AXIAL SKELETON Using the left forearm, the bone mineral density of the distal 1/3 is 0.514 g/cm2, corresponding to T-score of -3.0. This is consistent with osteoporosis. Using the left hip, the bone mineral density of the femoral neck is 0.734 g/cm2, corresponding to a T-score of -1.7. This is consistent with osteopenia and is not significantly changed from 2020. NOTE: T-score: Standard deviation compared with peak bone mass of young adult mean. *Following the recommendations of the International Society of Bone densitometry, classification of hip BMD is based on the lower of two T-scores; total hip or femoral neck. IMPRESSION: Findings are consistent with osteoporosis in the left forearm and osteopenia in the left hip. FRAX 10 year fracture risk is 11 % for major osteoporotic fracture. Reviewed, Interpreted and Dictated by Kelly Eduardo MD Transcribed by Celia Appiah Authenticated by Kelly Eduardo MD on 07/22/2021 11:53:[address] [facility]
== END ==
PROVIDERS: PCP Nurse Practitioner Family; Visit Provider Nurse Practitioner Family
DX: Z13.820 Encounter for screening for osteoporosis (principal); M81.0 Age-related osteoporosis without current pathological fracture
CPT/HCPCS: 77080

== ENCOUNTER → 2021-07-22 09:58 | Outpatient (CLI) | payer OTHER, SELFPAY ==
[2021-07-22 10:48] LABS: Anion Gap 15.6 mEq/L (5-15); Blood Urea Nitrogen 20 mg/dl (7-17); Calcium 9.7 mg/dl (8.4-10.2); Carbon Dioxide 26 mmol/L (22.0-30.0); Chloride 103 mmol/L (98-107); Estimated Glomerular Filt Rate 57 ml/min (>60); GFR (African American) 69 ML/MIN (>60); Glucose 116 mg/dl (74-100); Potassium 4.6 mmoL/L (3.5-5.1); Sodium 140 mmol/L (136-145)
== END ==
PROVIDERS: Nurse Practitioner Family; PCP Nurse Practitioner Family; Visit Provider Internal Medicine
DX: Z01.810 Encounter for preprocedural cardiovascular examination (principal); I25.10 Atherosclerotic heart disease of native coronary artery without angina pectoris; R06.00 Dyspnea, unspecified; I10 Essential (primary) hypertension; E78.5 Hyperlipidemia, unspecified; K21.9 Gastro-esophageal reflux disease without esophagitis; R60.9 Edema, unspecified
CPT/HCPCS: 36415; 80048

== ENCOUNTER → 2021-08-05 15:59 | Outpatient (CLI) | payer OTHER, SELFPAY | PROVIDERS: PCP Nurse Practitioner Family; Visit Provider Nurse Practitioner Family | DX: Z20.822 Contact with and (suspected) exposure to COVID-19 (principal); J20.9 Acute bronchitis, unspecified | CPT/HCPCS: C9803; U0003; U0005 ==

== ENCOUNTER → 2021-08-12 15:10 | Outpatient (CLI) | payer OTHER, SELFPAY ==
--- NOTE | 2021-08-12 15:32 | XR_ITS ---
FINAL REPORT CLINICAL HISTORY: SOB,SEVERE ASTHMA COMPARISON: December 01, 2018 FINDINGS: Two views of the chest were obtained. The heart size and pulmonary vascularity are within normal limits. The mediastinum is normal. There are mild bibasilar opacities favoring scarring. There is no pneumothorax. The bony thorax is intact. IMPRESSION: No active cardiopulmonary disease. Reviewed, Interpreted and Dictated by Lamonte Jeffery III, MD Transcribed by Nas Fishman Authenticated and [facility]
[2021-08-12 16:33] LABS: Eosinophils # 0.1 K/mm3 (0.0-0.4); Hemoglobin 13.8 g/dL (12.2-16.2); Monocytes # 0.6 K/mm3 (0.1-1.0); Neutrophils # 14.9 K/mm3 (1.8-7.8); White Blood Count 17.2 K/mm3 (4.8-10.8)
[2021-08-12 16:39] LABS: MANUAL DIFFERENTIAL MANUAL DIFFERENTIAL (MANUAL DIFF)
[2021-08-12 17:04] LABS: Alanine Aminotransferase 28 U/L (12-78); Albumin Level 4.2 g/dl (3.5-5.0); Albumin/Globulin Ratio 1.6 (1.1-1.8); Alkaline Phosphatase 154 U/L (38-126); Anion Gap 19.6 mEq/L (5-15); Aspartate Amino Transferase 35 U/L (14-36); Blood Urea Nitrogen 31 mg/dl (7-17); Calcium 8.9 mg/dl (8.4-10.2); Carbon Dioxide 21 mmol/L (22.0-30.0); Chloride 102 mmol/L (98-107); Estimated Glomerular Filt Rate 39 ml/min (>60); GFR (African American) 47 ML/MIN (>60); Globulin 2.6 g/dL (1.3-3.2); Glucose 141 mg/dl (74-100); Potassium 4.6 mmoL/L (3.5-5.1); Sodium 138 mmol/L (136-145); Total Protein,Serum 6.8 g/dl (6.3-8.2); Uric Acid 6.5 mg/dl (2.5-6.2)
[2021-08-12 17:13] LABS: NT Pro Brain Natriuretic Pep. 61.4 pg/mL (0-125)
[2021-08-12 17:18] LABS: Bilirubin,Total < 0.1 mg/dl (0.2-1.3)
[2021-08-12 18:40] LABS: Hematocrit 42.4 % (37.0-47.0); Mean Corpuscular Volume 81.9 fl (81-99); Red Blood Count 5.18 M/mm3 (4.20-5.40)
[2021-08-12 18:41] LABS: Mean Corpuscular HGB Conc 32.6 g/dL (31.8-35.4); Mean Corpuscular Hemoglobin 26.7 pg (27.0-31.2); Red Cell Distribution Width 14.9 % (11.5-17.5)
[2021-08-12 18:42] LABS: Basophils # 0.1 K/mm3 (0-0.2); Basophils % 0.6 % (0.1-2.0); Eosinophils % 0.3 % (0.1-12.0); Lymphocytes # 1.5 K/mm3 (0.7-4.5); Lymphocytes % 8.7 % (10-50); Monocytes % 3.5 % (1.7-9.3); Platelet Count 494 K/mm3 (142-424)
[2021-08-12 18:56] LABS: Hypochromasia 1+; Lymphocytes % 12 % (10-50); Monocytes % 3 % (2-9); Neutrophils % 83 % (42-76); Platelet Estimate Slight Increase; Stomatocytes 1+; Total Cells Counted 100
== END ==
PROVIDERS: PCP Nurse Practitioner Family; Visit Provider Nurse Practitioner Family
DX: R06.02 Shortness of breath (principal); E87.5 Hyperkalemia; M10.9 Gout, unspecified; J45.998 Other asthma
CPT/HCPCS: 36415; 71046; 80053; 83880; 84550; 85007; 85025

== ENCOUNTER → 2021-08-23 07:46 | Outpatient (CLI) | payer OTHER, SELFPAY ==
[2021-08-23 08:28] LABS: Basophils # 0.2 K/mm3 (0-0.2); Basophils % 1.3 % (0.1-2.0); Eosinophils # 0.6 K/mm3 (0.0-0.4); Eosinophils % 4.5 % (0.1-12.0); Hematocrit 41.5 % (37.0-47.0); Hemoglobin 12.7 g/dL (12.2-16.2); Lymphocytes # 2.8 K/mm3 (0.7-4.5); Lymphocytes % 20.2 % (10-50); Mean Corpuscular HGB Conc 30.7 g/dL (31.8-35.4); Mean Corpuscular Volume 84.5 fl (81-99); Mean Platelet Volume 7.6 fl (7.4-10.4); Monocytes # 0.8 K/mm3 (0.1-1.0); Monocytes % 5.7 % (1.7-9.3); Neutrophils # 9.6 K/mm3 (1.8-7.8); Neutrophils % 68.3 % (37.0-80.0); Platelet Count 460 K/mm3 (142-424); Red Blood Count 4.91 M/mm3 (4.20-5.40); Red Cell Distribution Width 15.6 % (11.5-17.5)
[2021-08-23 08:51] LABS: Erythrocyte Sedimentation Rate 19 mm/hr (0-30)
[2021-08-23 08:56] LABS: C-Reactive Protein 17.2 mg/L (0-4)
[2021-08-23 09:27] LABS: 25-OH Vitamin D, Total 42.8 ng/mL (30-100)
[2021-08-24 08:32] LABS: Estradiol <5.0 pg/mL (.); FSH 61.2 mIU/mL (.); LH 16.9 mIU/mL (.)
[2021-08-24 11:02] LABS: RA Latex Turbid. <10.0 IU/mL (<14.0)
[2021-08-25 11:10] LABS: C-Peptide 6.4 ng/mL (1.1-4.4); Insulin Level Total 25.5 uIU/mL (2.6-24.9)
[2021-08-25 12:15] LABS: Antinuclear Antibodies, IFA Negative (.)
== END ==
PROVIDERS: PCP Nurse Practitioner Family; Visit Provider Nurse Practitioner Family
DX: M79.7 Fibromyalgia (principal); R61 Generalized hyperhidrosis; R53.83 Other fatigue; N91.2 Amenorrhea, unspecified; M25.50 Pain in unspecified joint; D72.829 Elevated white blood cell count, unspecified; E66.9 Obesity, unspecified; Z68.41 Body mass index [BMI] 40.0-44.9, adult
CPT/HCPCS: 36415; 82306; 82533; 82670; 83001; 83002; 83525; 84550; 84681; 85025; 85651; 86038; 86140; 86431

== ENCOUNTER → 2021-09-11 13:03 | Outpatient (CLI) | payer OTHER, SELFPAY | PROVIDERS: PCP Nurse Practitioner Family; Visit Provider Nurse Practitioner Family | DX: U07.1 COVID-19 (principal) | CPT/HCPCS: C9803; U0003; U0005 ==

== ENCOUNTER → 2021-09-19 14:36 | Outpatient (CLI) | payer OTHER, SELFPAY ==
--- NOTE | 2021-09-19 14:39 | XR_ITS ---
FINAL REPORT CLINICAL HISTORY: COVID, SEVERE ASTHMA, SOB COMPARISON: 08/12/2021 FINDINGS: Two views of the chest were obtained. The heart size and pulmonary vascularity are within normal limits. The mediastinum is normal. There is persistent mild bibasilar opacity favoring atelectasis or scarring. There is no pneumothorax. The bony thorax is intact. IMPRESSION: Persistent mild bibasilar opacity favoring atelectasis or scarring. Reviewed, Interpreted and Dictated by Lamonte Jeffery III, MD Transcribed by Celia Appiah Authenticated and [facility]
== END ==
PROVIDERS: PCP Nurse Practitioner Family; Visit Provider Nurse Practitioner Family
DX: U07.1 COVID-19 (principal); J45.998 Other asthma; R06.02 Shortness of breath
CPT/HCPCS: 71046

== ENCOUNTER → 2021-10-15 16:39 | Outpatient (CLI) | payer OTHER, SELFPAY | PROVIDERS: PCP Nurse Practitioner Family; Visit Provider Nurse Practitioner Family | DX: U07.1 COVID-19 (principal); R68.83 Chills (without fever); R52 Pain, unspecified; R11.0 Nausea; R51.9 Headache, unspecified | CPT/HCPCS: C9803; U0003; U0005 ==

== ENCOUNTER → 2022-01-21 08:41 | Outpatient (CLI) | payer OTHER, SELFPAY ==
[2022-01-21 09:26] LABS: Hemoglobin A1C 5.9 % (4.0-6.0)
[2022-01-21 09:47] LABS: Anion Gap 10.7 mEq/L (5-15); Blood Urea Nitrogen 19 mg/dl (7-17); Carbon Dioxide 29 mmol/L (22.0-30.0); Chloride 97 mmol/L (98-107); Estimated Glomerular Filt Rate 57 ml/min (>60); GFR (African American) 69 ML/MIN (>60); Glucose 102 mg/dl (74-100); Potassium 4.7 mmoL/L (3.5-5.1); Sodium 132 mmol/L (136-145)
[2022-01-21 10:04] LABS: 25-OH Vitamin D, Total 59.6 ng/mL (30-100)
[2022-01-21 10:37] LABS: Vitamin B12 849 pg/mL (239-931)
[2022-01-23 13:46] LABS: Adrenocorticotropic Hormone 8.6 pg/mL (7.2-63.3)
== END ==
PROVIDERS: PCP Nurse Practitioner Family; Referring Provider Physician Assistant; Visit Provider Internal Medicine Cardiovascular Disease
DX: R79.89 Other specified abnormal findings of blood chemistry (principal); R53.83 Other fatigue; R73.03 Prediabetes
CPT/HCPCS: 36415; 80048; 82024; 82306; 82533; 82607; 83036

== ENCOUNTER → 2022-02-24 14:03 | Outpatient (CLI) | payer OTHER, SELFPAY ==
--- NOTE | 2022-02-24 14:08 | CT_ITS ---
FINAL REPORT TECHNIQUE: Axial imaging of the lumbar spine was obtained without contrast. Sagittal and coronal reformatted images were also obtained and reviewed. This study was performed with techniques to keep radiation doses as low as reasonably achievable (ALARA). Individualized dose reduction techniques using automated exposure control or adjustment of mA and/or kV according to the patient''s size were employed. CLINICAL HISTORY: LUMBAR RADICULOPATHY FINDINGS: There is fusion at L4-5. There is no fracture. The vertebral alignment is normal. There are mild and moderate degenerative changes of multiple levels. There is multilevel vacuum disc phenomenon. There is no evidence of significant central canal stenosis. L1-L2: An annular disc bulge is present with vertebral osteophytes and moderate bilateral neural foraminal narrowing. L2-L3: An annular disc bulge is present with vertebral osteophytes and moderate bilateral neural foraminal narrowing. L3-L4: An annular disc bulge is present with mild bilateral neural foraminal narrowing. L4-L5: There is fusion at this level. There is moderate bilateral neural foraminal narrowing. L5-S1: An annular disc bulge with facet arthropathy is present. There is moderate right and severe left neural foraminal narrowing. There are mild degenerative changes of the SI joints. IMPRESSION: Mild and moderate multilevel degenerative change and spondylosis with areas of neural foraminal narrowing. Reviewed, Interpreted and Dictated by Lamonte Jeffery III, MD Transcribed by Celia Appiah Authenticated and [facility]
[2022-02-24 14:53] LABS: Blood Urea Nitrogen 13 mg/dl (7-17); Estimated Glomerular Filt Rate 74 ml/min (>60); GFR (African American) 89 ML/MIN (>60)
--- NOTE | 2022-02-24 16:11 | MR_ITS ---
PROCEDURE INFORMATION: Exam: MR Lumbar Spine Without and With Contrast Exam date and time: 02/24/2022 4:25 PM Age: 56 years old Clinical indication: Low back pain; Prior surgery; Additional info: Lumbar radiculopathy TECHNIQUE: Imaging protocol: Magnetic resonance imaging of the lumbar spine without and with contrast. Contrast material: PROHANCE; Contrast volume: 23 ml; Contrast route: IV; COMPARISON: CT LUMBAR SPINE WO CON 02/24/2022 2:12 PM FINDINGS: alignment is grossly normal. signal intensity within the bone marrow is normal. conus terminates at the mid aspect of L1. Soft tissues are unremarkable. surgical plate and pedicle screws L4 and L5 Annular disk bulge and/or protrusions T11-T12, T12-L1 and L1-L2 No marrow edema Small renal cyst on the right No significant abnormal enhancement. T11-T12: Left lateral disc protrusion. Central canal is normal. T12-L1: Central canal and neural foramina are normal. L1-L2: Broad-based annular disc bulge effaces the anterior aspect of the thecal sac mildly so. Central canal and neural foramina are normal. L2-L3: Right lateral disc protrusion extending within the right neural foramina. Paucity of fat about the exiting nerve root. Central canal is normal. L3-L4: Central canal and neural foramina are normal. L4-L5: Central canal is normal. Right neural foramina appears widely patent. Metallic artifact limits characterization of the left neural foramina although likely patent. L5-S1: Central canal is normal. Metallic artifact limits characterization of the neural foramina particularly on the left. IMPRESSION: Surgical plate and pedicle screws L4 and L5. Mild degenerative disc disease described above.
== END ==
PROVIDERS: PCP Nurse Practitioner Family; Visit Provider Neurological Surgery
DX: M54.16 Radiculopathy, lumbar region (principal); I10 Essential (primary) hypertension
CPT/HCPCS: 36415; 72131; 72158; 76376; 82565; 84520; A9576

== ENCOUNTER → 2022-03-30 10:24 | Outpatient (CLI) | payer OTHER, SELFPAY ==
--- NOTE | 2022-03-30 10:31 | XR_ITS ---
FINAL REPORT CLINICAL HISTORY: SEVERE ASTHMA, r/o pneumonia, soa, productive cough COMPARISON: 09/19/2021 FINDINGS: Two views of the chest were obtained. The heart size and pulmonary vascularity are within normal limits. The mediastinum is normal. There are mild bibasilar opacities which may represent atelectasis or scarring. There is no pneumothorax. The bony thorax is intact. IMPRESSION: Mild bibasilar atelectasis or scarring. Reviewed, Interpreted and Dictated by Lamonte Jeffery III, MD Transcribed by Celia Appiah Authenticated and [facility]
[2022-03-30 11:58] LABS: Basophils # 0.1 K/mm3 (0-0.2); Basophils % 0.4 % (0.1-2.0); Eosinophils # 0.1 K/mm3 (0.0-0.4); Eosinophils % 0.4 % (0.1-12.0); Hematocrit 45.6 % (37.0-47.0); Hemoglobin 14.2 g/dL (12.2-16.2); Lymphocytes # 1.7 K/mm3 (0.7-4.5); Lymphocytes % 9.9 % (10-50); Mean Corpuscular HGB Conc 31.1 g/dL (31.8-35.4); Mean Corpuscular Hemoglobin 26.4 pg (27.0-31.2); Mean Corpuscular Volume 84.9 fl (81-99); Mean Platelet Volume 8.1 fl (7.4-10.4); Monocytes # 0.7 K/mm3 (0.1-1.0); Monocytes % 4.2 % (1.7-9.3); Neutrophils # 14.9 K/mm3 (1.8-7.8); Neutrophils % 85.1 % (37.0-80.0); Platelet Count 591 K/mm3 (142-424); Red Blood Count 5.37 M/mm3 (4.20-5.40); Red Cell Distribution Width 15.1 % (11.5-17.5); White Blood Count 17.5 K/mm3 (4.8-10.8)
[2022-03-30 12:06] LABS: MANUAL DIFFERENTIAL MANUAL DIFFERENTIAL (MANUAL DIFF)
[2022-03-30 12:37] LABS: Chloride 104 mmol/L (98-107); Sodium 141 mmol/L (136-145)
[2022-03-30 12:38] LABS: Potassium 4.4 mmoL/L (3.5-5.1)
[2022-03-30 12:40] LABS: Alanine Aminotransferase 32 U/L (12-78); Alkaline Phosphatase 153 U/L (38-126); Aspartate Amino Transferase 32 U/L (14-36); Bilirubin,Total 0.4 mg/dl (0.2-1.3); Blood Urea Nitrogen 22 mg/dl (7-17); Estimated Glomerular Filt Rate 64 ml/min (>60); GFR (African American) 78 ML/MIN (>60)
[2022-03-30 12:41] LABS: Albumin Level 4.5 g/dl (3.5-5.0); Albumin/Globulin Ratio 1.6 (1.1-1.8); Anion Gap 19.4 mEq/L (5-15); Calcium 9.1 mg/dl (8.4-10.2); Carbon Dioxide 22 mmol/L (22.0-30.0); Globulin 2.8 g/dL (1.3-3.2); Glucose 181 mg/dl (74-100); Total Protein,Serum 7.3 g/dl (6.3-8.2)
[2022-03-30 12:50] LABS: NT Pro Brain Natriuretic Pep. 307 pg/mL (0-125)
[2022-03-30 14:34] LABS: Lymphocytes % 11 % (10-50); Monocytes % 4 % (2-9); Neutrophils % 85 % (42-76); Platelet Estimate Slight Increase; Total Cells Counted 100
[2022-03-30 14:35] LABS: Hypochromasia 1+
== END ==
PROVIDERS: PCP Nurse Practitioner Family; Visit Provider Nurse Practitioner Family
DX: R06.02 Shortness of breath (principal); R60.0 Localized edema; J45.998 Other asthma
CPT/HCPCS: 36415; 71046; 80053; 83880; 85007; 85025

== ENCOUNTER 2022-12-16 09:00 | Outpatient (RCR) | payer OTHER, SELFPAY | END 2023-01-25 11:44 | disposition home or self-care (01) | LOC: PT 09:00 | PROVIDERS: PCP Nurse Practitioner Family; Visit Provider Anesthesiology | DX: M54.16 Radiculopathy, lumbar region (principal) | CPT/HCPCS: 97110; 97140; 97163 ==

== ENCOUNTER 2022-12-22 12:59 | Inpatient (IN) | payer OTHER, MEDICARE, SELFPAY ==
[2022-12-22] VITALS (11 sets, daily range): BP systolic 111–169; BP diastolic 59–112; PULSE 100–114; RESP 8–20; TEMP 36.4–36.6; O2SAT 93–98; BMI 38.7
--- NOTE | 2022-12-22 13:13 | ECG_ITS ---
APPROVED REPORT Exam: Resting ECG HR:105 bpm ECG Measurements Heart Rate 105 AXES VA 159 P 56 QRSd 90 QRS 72 QT 354 T 242 QTc 415 Conclusion SINUS TACHYCARDIA MODERATE T-WAVE ABNORMALITY, CONSIDER ANTEROLATERAL ISCHEMIA [-0.1+ mV T-WAVE IN V3-V6] MODERATE T-WAVE ABNORMALITY, CONSIDER INFERIOR ISCHEMIA [-0.1+ mV T-WAVE IN II/aVF] ABNORMAL ECG UNCONFIRMED REPORT Electronically signed by : Delonte Young MD 12/24/2022 21:31:39
--- NOTE | 2022-12-22 13:29 | PC.NURSE ---
UA sent to lab
[2022-12-22 14:02] LABS: Basophils # 0.1 K/mm3 (0-0.2); Basophils % 0.5 % (0.1-2.0); Eosinophils # 0.2 K/mm3 (0.0-0.4); Eosinophils % 1.9 % (0.1-12.0); Hematocrit 48.4 % (37.0-47.0); Hemoglobin 16.5 g/dL (12.2-16.2); Lymphocytes # 2.2 K/mm3 (0.7-4.5); Mean Corpuscular Hemoglobin 29.1 pg (27.0-31.2); Mean Corpuscular Volume 85.5 fl (81-99); Mean Platelet Volume 8.1 fl (7.4-10.4); Monocytes # 0.7 K/mm3 (0.1-1.0); Monocytes % 5.6 % (1.7-9.3); Neutrophils # 9.8 K/mm3 (1.8-7.8); Platelet Count 451 K/mm3 (142-424); Red Blood Count 5.67 M/mm3 (4.20-5.40); Red Cell Distribution Width 15.3 % (11.5-17.5)
[2022-12-22 14:04] LABS: Chloride 106 mmol/L (98-107); Potassium 4.6 mmoL/L (3.5-5.1); Sodium 137 mmol/L (136-145)
--- NOTE | 2022-12-22 14:04 | HMH.EDGENADL ---
Discharge Plan Disposition Patient Disposition: Admitted Clinical Impressions Clinical Impression: Acute non-ST elevation myocardial infarction (NSTEMI), Tachycardia Discharge ED Provider: Amish Palacio General Adult HPI General Chief complaint: Shortness of Breath/Dyspnea Stated complaint: SOA, WEAKNESS, NAUSEA Time Seen by Provider: 12/22/22 13:34 Mode of Arrival: Wheelchair Source of Information: Patient Limitations: No Limitations Description of Symptoms (Recalled from ER Triage Doc. by RN): pt has been sick and not feeling well since wednesday, pt main cc is nausea with some SOA on excertion however pt has hx of asthma. pt states she took phenergan and hit of albuterol inhaler before coming to ER. History of Present Illness HPI narrative: 57-year-old female, history of prior coronary artery disease, GERD, asthma, hyperlipidemia presents with approximately 3 days of nonspecific symptoms. She reports mild nausea but denies vomiting or diarrhea. reports decreased PO intake. She denies any specific abdominal pain. She denies any chest pain, reports some shortness of breath. Shortness of breath is worse with ambulation. She denies significant cough, denies fever at home. She reports that she just does not feel well. Related Data Home Medications Medication Instructions Recorded Confirmed albuterol sulfate 90 mcg/actuation 2 puff inhalation Q4-6H PRN asthma 05/27/17 12/22/22 aerosol inhaler (ProAir HFA) budesonide-formoterol HFA 160 2 inh inhalation Q12H Asthma 05/27/17 12/22/22 mcg-4.5 mcg/actuation aerosol inhaler (Symbicort) montelukast 10 mg tablet 10 mg PO QHS Allergy symptoms 05/27/17 12/22/22 (Singulair) tiotropium bromide 2.5 2 puff inhalation DAILY Asthma 05/27/17 12/22/22 mcg/actuation mist for inhalation (Spiriva Respimat) pantoprazole 40 mg tablet,delayed 40 mg PO DAILY 11/14/18 12/22/22 release (Protonix) levocetirizine 5 mg tablet 5 mg PO DAILY 07/13/19 12/22/22 hydrocodone 7.5 mg-acetaminophen 1 tab PO Q4-6H PRN Pain 07/27/19 12/22/22 325 mg tablet dupilumab 300 mg/2 mL subcutaneous 300 mg SQ DIRECTED 03/26/21 12/22/22 syringe (Dupixent) bumetanide 1 mg tablet 1 mg PO DAILY Fluid 12/22/22 12/22/22 ibandronate 150 mg tablet 150 mg PO MONTHLY OSTEO 12/22/22 12/22/22 lemborexant 5 mg tablet (Dayvigo) 5 mg PO HS 12/22/22 12/22/22 linaclotide 145 mcg capsule 145 mcg PO DAILY 12/22/22 12/22/22 (Linzess) losartan 50 mg tablet 50 mg PO DAILY 12/22/22 12/22/22 pregabalin 150 mg capsule (Lyrica) 150 mg PO BID Pain 12/22/22 12/22/22 rosuvastatin 5 mg tablet (Crestor) 5 mg PO HS HLD 12/22/22 12/22/22 Previous Rx's Medication Instructions Recorded diltiazem HCl 240 mg 240 mg PO ONCE #30 caps 08/05/17 capsule,extended release 24 hr (Cardizem CD) eszopiclone 2 mg tablet 2 mg PO HS #30 tabs 03/26/21 cyclobenzaprine 10 mg tablet 10 mg PO DAILY PRN muscle spasm 30 12/22/22 days #30 tabs duloxetine 60 mg capsule,delayed 60 mg PO BID Depression 30 days 12/22/22 release #60 caps Allergies Allergy/AdvReac Type Severity Reaction Status Date / Time Penicillins Allergy Intermediate I-ITCHING Verified 05/07/21 10:25 PFSH PFS Disclaimer: The information contained in this section may have been updated after the patient was seen, as this information can be updated by other users. Medical History (Updated 12/22/22 @ 18:34 by Doug Gill MD) Asthma CAD (coronary artery disease) Encounter for pre-operative cardiovascular clearance Insomnia Surgical History (Updated 12/22/22 @ 18:03 by Shayy Green, OSIEL) H/O: hysterectomy History of back surgery History of bilateral knee replacement Hx of cholecystectomy Family History (Updated 12/22/22 @ 18:03 by Shayy Green, RN) Other Hyperlipidemia Hypertension Social History (Updated 12/22/22 @ 18:04 by Shayy Green, OSIEL) Smoking Status: Never smoker second hand exposure: Yes alcohol intake: c
[2022-12-22 14:07] LABS: Alanine Aminotransferase 47 U/L (12-78); Albumin Level 4.6 g/dl (3.5-5.0); Albumin/Globulin Ratio 1.3 (1.1-1.8); Alkaline Phosphatase 154 U/L (38-126); Anion Gap 14.6 mEq/L (5-15); Aspartate Amino Transferase 76 U/L (14-36); Bilirubin,Total 0.9 mg/dl (0.2-1.3); Blood Urea Nitrogen 13 mg/dl (7-17); Calcium 9.1 mg/dl (8.4-10.2); Carbon Dioxide 21 mmol/L (22.0-30.0); Creatinine Clearance Estimated 124 mL/min (50-200); Estimated Glomerular Filt Rate 74 ml/min (>60); GFR (African American) 89 ML/MIN (>60); Globulin 3.5 g/dL (1.3-3.2); Glucose 118 mg/dl (74-100); Total Protein,Serum 8.1 g/dl (6.3-8.2)
[2022-12-22 14:08] LABS: Magnesium 1.8 mg/dl (1.6-2.3)
[2022-12-22 14:13] LABS: D-Dimer 1.06 ug/mL (0.0-0.5)
--- NOTE | 2022-12-22 14:19 | CT_ITS ---
FINAL REPORT CLINICAL HISTORY: cp, sob, positive dimer FINDINGS: Thin section axial CT images of the chest were obtained with contrast. 3D reformatted images were also obtained. This study was performed with techniques to keep radiation doses as low as reasonably achievable (ALARA). Individualized dose reduction techniques using automated exposure control or adjustment of mA and/or kV according to the patient''s size were employed. There is no evidence of pulmonary embolism. There is no evidence of thoracic aortic aneurysm or dissection. There is no evidence of mediastinal or hilar mass or adenopathy. There is no evidence of pulmonary mass or nodule. There is mild atelectasis or scar at the bases. There is portal and portacaval adenopathy. Portacaval node measures 27 mm, may be reactive or neoplastic. IMPRESSION: No evidence of pulmonary embolism. Portal and portacaval adenopathy. Follow-up CT or PET-CT may be helpful. Reviewed, Interpreted and Dictated by Lamonte Jeffery III, MD Transcribed by Destiny Hernandez Authenticated and [facility]
[2022-12-22 15:03] LABS: Coronavirus 19, PCR Not Detected (NotDetected); Influenza A, PCR Not Detected (NotDetected); Influenza B, PCR Not Detected (NotDetected)
[2022-12-22 16:24] LABS: Microscopic, Urine URINE MICROSCOPIC (MICROSCOPIC)
[2022-12-22 16:33] LABS: Appearance,Urine CLEAR (Clear); Blood, Urine Negative (Negative); Color,Urine YELLOW (Yellow); Glucose,Urine (UA) Negative (Negative); Ketones,Urine Negative (Negative); Leukocyte Esterase,Urine Negative (Negative); Nitrate,Urine Negative (Negative); Protein,Urine Negative (Negative)
[2022-12-22 16:35] LABS: Bilirubin,Urine 1+ (Negative)
[2022-12-22 16:38] LABS: NT Pro Brain Natriuretic Pep. 6660 pg/mL (0-125)
[2022-12-22 16:42] LABS: Troponin I 1.47 ng/ml (0.00-0.034)
--- NOTE | 2022-12-22 17:10 | PC.NURSE ---
house notified of admission
[2022-12-22 17:21] LABS: WBC,Urine Occasional #/hpf (0-3)
--- NOTE | 2022-12-22 19:29 | EXP.HP ---
History of Present Illness *Admission Date: 12/22/22 *Reason for visit:: fatigue, SOA with exertion *History of present illness: 57-year-old female morbid obesity who presents with 3 days of worsening dyspnea with exertion, increased belching and heartburn. States that she is fatigued when she lays flat and is less short of breath when she sits up. Gets winded just walking across the room. Has had some intermittent right-sided chest pain. Denies any ursula left-sided chest pain. No nausea or vomiting. No diarrhea. No syncope. On arrival to the ER, patient is tach. Had blood pressure within normal range at [place] KG showing T wave inversions. Labs remarkable for elevated troponin at 1.47 and elevated BNP of 6660. Patient also reports that she was previously on prednisone, 5 mg daily until a little over a month ago. This was reportedly for adrenal insufficiency but repeat labs showed everything was back to normal. These meds were stopped and she has been fine until the past 3 days. No known sick contacts. ER concern for NSTEMI contacted medicine for admission. My evaluation, patient has no abdominal pain. Lungs are clear on exam. Family at bedside and updated of plan. On telemetry with sinus rhythm/tachycardia. Stable on room air. History of asthma and reports her shortness of breath has not improved with breathing treatments. Takes her diuretic daily, has had no increased edema that she knows of. [facility] Disclaimer: The information contained in this section may have been updated after the patient was seen, as this information can be updated by other users. Medical History Asthma CAD (coronary artery disease) Encounter for pre-operative cardiovascular clearance Insomnia Surgical History H/O: hysterectomy History of back surgery History of bilateral knee replacement Hx of cholecystectomy Family History Hyperlipidemia Hypertension Social History Smoking Status: Never smoker second hand exposure: Yes alcohol intake: current substance use type: denies use current occupational status: disabled Travel in the last 8 weeks: None household members: spouse housing: house current occupational exposures/hazards: Yes caffeine: No Review of Systems Review of Systems Review of systems (narrative): 14 point review of systems performed, pertinent positives and negatives as per HPI Meds Home Medications and Allergies Home Medications Medication Instructions Recorded Confirmed Type albuterol sulfate 90 mcg/actuation 2 puff inhalation Q4-6H PRN asthma 05/27/17 12/22/22 History aerosol inhaler (ProAir HFA) budesonide-formoterol HFA 160 2 inh inhalation Q12H Asthma 05/27/17 12/22/22 History mcg-4.5 mcg/actuation aerosol inhaler (Symbicort) montelukast 10 mg tablet 10 mg PO QHS Allergy symptoms 05/27/17 12/22/22 History (Singulair) tiotropium bromide 2.5 2 puff inhalation DAILY Asthma 05/27/17 12/22/22 History mcg/actuation mist for inhalation (Spiriva Respimat) diltiazem HCl 240 mg 240 mg PO ONCE #30 caps 08/05/17 12/22/22 Rx capsule,extended release 24 hr (Cardizem CD) pantoprazole 40 mg tablet,delayed 40 mg PO DAILY 11/14/18 12/22/22 History release (Protonix) levocetirizine 5 mg tablet 5 mg PO DAILY 07/13/19 12/22/22 History hydrocodone 7.5 mg-acetaminophen 1 tab PO Q4-6H PRN Pain 07/27/19 12/22/22 History 325 mg tablet dupilumab 300 mg/2 mL subcutaneous 300 mg SQ DIRECTED 03/26/21 12/22/22 History syringe (Dupixent) eszopiclone 2 mg tablet 2 mg PO HS #30 tabs 03/26/21 12/22/22 Rx bumetanide 1 mg tablet 1 mg PO DAILY Fluid 12/22/22 12/22/22 History cyclobenzaprine 10 mg tablet 10 mg PO DAILY PRN muscle spasm 30 12/22/22 12/22/22 Rx days #30 tabs duloxetine 6
[2022-12-22 20:39] LABS: Troponin I 1.17 ng/ml (0.00-0.034)
--- NOTE | 2022-12-22 20:40 | PC.NURSE ---
Rizwana from lab called and reported critical lab troponin 1.17 -- reported to jaleel face to face at 2041 -- NNO
--- NOTE | 2022-12-22 22:00 | PC.NURSE ---
R wrist IV occluded. New 22g placed in left hand.
--- NOTE | 2022-12-22 23:08 | PC.NURSE ---
franky from lab called to report a critical lab troponin 1.10 -- Hospitalist Rikki notified -- MARTHAO
[2022-12-23] VITALS (9 sets, daily range): BP systolic 90–138; BP diastolic 53–89; PULSE 90–124; RESP 17–18; TEMP 36.8–37; O2SAT 92–96; BMI 44.6
--- NOTE | 2022-12-23 04:36 | PC.NURSE ---
holding lovenox at 0530 pending cardio consult and possible cath. confirmed with charge,
[2022-12-23 07:29] LABS: Chloride 103 mmol/L (98-107); Potassium 4.3 mmoL/L (3.5-5.1); Sodium 137 mmol/L (136-145)
[2022-12-23 07:31] LABS: Alanine Aminotransferase 40 U/L (12-78); Aspartate Amino Transferase 81 U/L (14-36); Blood Urea Nitrogen 19 mg/dl (7-17); Creatinine Clearance Estimated 48 mL/min (50-200); Estimated Glomerular Filt Rate 51 ml/min (>60); GFR (African American) 62 ML/MIN (>60)
[2022-12-23 07:32] LABS: Albumin Level 4.3 g/dl (3.5-5.0); Albumin/Globulin Ratio 1.3 (1.1-1.8); Alkaline Phosphatase 142 U/L (38-126); Anion Gap 14.3 mEq/L (5-15); Bilirubin,Total 0.8 mg/dl (0.2-1.3); Calcium 8.5 mg/dl (8.4-10.2); Carbon Dioxide 24 mmol/L (22.0-30.0); Chol/HDL Ratio 11.3 (1-3.5); Cholesterol 261 mg/dl (140-200); Globulin 3.3 g/dL (1.3-3.2); Glucose 118 mg/dl (74-100); HDL Cholesterol 23 mg/dl (40-60); Magnesium 2.3 mg/dl (1.6-2.3); Total Protein,Serum 7.6 g/dl (6.3-8.2); Triglycerides 310 mg/dl (30-150); VLDL Cholesterol 62 mg/dL (0-40)
[2022-12-23 07:43] LABS: Direct LDL Cholesterol 157.83 mg/dL (100-129)
[2022-12-23 07:48] LABS: Basophils # 0.1 K/mm3 (0-0.2); Eosinophils # 0.3 K/mm3 (0.0-0.4); Eosinophils % 3.4 % (0.1-12.0); Hemoglobin 16.4 g/dL (12.2-16.2); Lymphocytes # 2.2 K/mm3 (0.7-4.5); Lymphocytes % 29.7 % (10-50); Mean Corpuscular HGB Conc 33.4 g/dL (31.8-35.4); Mean Corpuscular Hemoglobin 29.1 pg (27.0-31.2); Mean Corpuscular Volume 87.1 fl (81-99); Mean Platelet Volume 7.2 fl (7.4-10.4); Monocytes # 0.7 K/mm3 (0.1-1.0); Monocytes % 8.7 % (1.7-9.3); Neutrophils # 4.3 K/mm3 (1.8-7.8); Neutrophils % 57.1 % (37.0-80.0); Platelet Count 309 K/mm3 (142-424); Red Blood Count 5.62 M/mm3 (4.20-5.40); Red Cell Distribution Width 15.3 % (11.5-17.5); White Blood Count 7.5 K/mm3 (4.8-10.8)
--- NOTE | 2022-12-23 08:25 | HMH.PHAINT1 ---
Pharmacy Intervention Comments: MEDICATION RECONCILIATION COMPLETED ON PATIENT USING EXTERNAL FILL HISTORY FROM PHARMACY. -HAMZAH CHAPA, COURTNEYD
--- NOTE | 2022-12-23 08:51 | EXP.CARD.CON ---
History of Present Illness History of Present Illness Consult date: 12/23/22 Requesting physician: Jamie Mann Consult reason: chest pain Chief complaint: chest pain, soa History of present illness: 57-year-old white female with past medical history of coronary artery disease, hypertension, asthma, GERD presented to emergency department last night with complaints of 3 days of nausea and shortness of breath. Patient also endorses intermittent right-sided chest pain that was relieved with Tylenol. She also complains of heartburn that is exacerbated with drinking water. Patient reports she was previously on prednisone 5 mg until a little over a month ago for presumed adrenal insufficiency. Upon presentation to ER patient was mildly tachycardic with heart rate in the low 100s. Initial EGK showed sinus tachycardia with a rate of 105 with moderate T wave abnormality concerning for anterolateral ischemia and inferior ischemia. Patient was given a total of 2 L fluid bolus and symptoms of shortness of breath and tachycardia worsened. Labs as follow: Hemoglobin 16.4, sodium 137, potassium 4.3, BUN 19, creatinine 1.10, BNP of 6660 and serial troponins 1.47 trending down to 1.10. Initial D-dimer was positive and a CTA of chest was obtained which was negative for pulmonary embolism. After symptoms worsened with fluid bolus patient was given IV diuretics for increased symptoms and admitted for NSTEMI/heart failure. At this time patient denies any chest pain but reports continues to feel short of breath with exertion. [facility] Disclaimer: The information contained in this section may have been updated after the patient was seen, as this information can be updated by other users. Medical History Asthma CAD (coronary artery disease) Encounter for pre-operative cardiovascular clearance Insomnia Surgical History H/O: hysterectomy History of back surgery History of bilateral knee replacement Hx of cholecystectomy Family History Hyperlipidemia Hypertension Social History Smoking Status: Never smoker second hand exposure: Yes alcohol intake: current substance use type: denies use current occupational status: disabled Travel in the last 8 weeks: None household members: spouse housing: house current occupational exposures/hazards: Yes caffeine: No Review of Systems Review of Systems Review of systems:: pertinent systems reviewed and negative unless documented below *Cardiovascular Cardiovascular: Reports chest pain and Reports dyspnea on exertion *Respiratory Respiratory: Reports dyspnea on exertion *Gastrointestinal Gastrointestinal: Reports nausea Exam Data for Last 24 hours Vital signs and Labs for Last 24 Hours: Temp Pulse Resp BP Pulse Ox O2 Del Method 98.4 F 101 H 17 134/89 93 L Room Air 12/23/22 08:00 12/23/22 08:00 12/23/22 08:00 12/23/22 08:00 12/23/22 08:00 12/23/22 08:00 Laboratory Results - last 24 hr 12/22/22 13:40: WBC 13.0 H, RBC 5.67 H, Hgb 16.5 H, Hct 48.4 H, MCV 85.5, MCH 29.1, MCHC 34.0, RDW 15.3, Plt Count 451 H, MPV 8.1, Neut % (Auto) 75.0, Lymph % (Auto) 17.0, [place]cdonald % (Auto) 5.6, Eos % (Auto) 1.9, Baso % (Auto) 0.5, Neut # (Auto) 9.8 H, Lymph # (Auto) 2.2, [place]onald # (Auto) 0.7, Eos # (Auto) 0.2, Baso # (Auto) 0.1, D-Dimer 1.06 H, Sodium 137, Potassium 4.6, Chloride 106, Carbon Dioxide 21 L, Anion Gap 14.6, BUN 13, Creatinine 0.80, Estimated Creat Clear 124, Estimated GFR 74, Est GFR ( Amer) 89, Glucose 118 H, Calcium 9.1, Magnesium 1.8, Total Bilirubin 0.9, AST 76 H, ALT 47, Alkaline Phosphatase 154 H, Troponin I 1.47 H, NT-Pro-B Natriuret Pep 6660 H, Total Protein 8.1, Albumin 4.6, Globulin 3.5 H, Albumin/Globulin Ratio 1.3 12/22/22 14:56: SARS-CoV-2 (PCR) Not detected, Influenza A Un
--- NOTE | 2022-12-23 12:51 | EXP.ACUTE.PN ---
Subjective *Date: 12/23/22 *Time: 12:51 Interval history: Interval improvement in chest pain. Still fatigued with exertion, no acute shortness of breath. No nausea or vomiting. Alert and oriented x4. Medical Exam Vital signs and Labs for Last 24 Hours: Vital Signs Temp Pulse Pulse Resp BP BP Pulse Ox 12/23/22 11:16 112 H 18 102/69 L 96 12/23/22 10:57 12/23/22 09:00 12/23/22 08:00 103 H 12/23/22 08:00 98.4 F 101 H 17 134/89 93 L 12/23/22 07:48 105 H 92 L 12/23/22 06:09 12/23/22 04:00 98.6 F 105 H 18 106/71 L 92 L 12/23/22 04:49 12/23/22 03:00 12/23/22 04:00 100 H 12/22/22 20:00 100 H 12/23/22 00:00 110 H 12/23/22 01:00 12/23/22 00:00 98.2 F 101 H 17 90/53 L 92 L 12/22/22 23:00 12/22/22 20:00 110 H 12/22/22 21:00 12/22/22 20:00 97.5 F L 101 H 16 111/59 L 95 12/22/22 18:45 12/22/22 17:47 97.8 F 114 H 20 119/79 12/22/22 17:00 109 H 14 139/88 96 12/22/22 16:30 113 H 16 130/81 98 12/22/22 16:00 107 H 169/101 H 96 12/22/22 15:30 105 H 18 152/97 H 94 L 12/22/22 15:00 106 H 13 119/76 96 12/22/22 14:30 114 H 14 161/112 H 93 L 12/22/22 14:01 112 H 8 L 129/90 96 12/22/22 13:30 110 H 12 117/84 96 12/22/22 13:01 97.8 F 110 H 18 137/101 H 95 O2 Del Method 12/23/22 11:16 Room Air 12/23/22 10:57 Room Air 12/23/22 09:00 Room Air 12/23/22 08:00 12/23/22 08:00 Room Air 12/23/22 07:48 Room Air 12/23/22 06:09 Room Air 12/23/22 04:00 Room Air 12/23/22 04:49 Room Air 12/23/22 03:00 Room Air 12/23/22 04:00 12/22/22 20:00 12/23/22 00:00 12/23/22 01:00 Room Air 12/23/22 00:00 Room Air 12/22/22 23:00 Room Air 12/22/22 20:00 Room Air 12/22/22 21:00 Room Air 12/22/22 20:00 Room Air 12/22/22 18:45 Room Air 12/22/22 17:47 Room Air 12/22/22 17:00 12/22/22 16:30 12/22/22 16:00 Room Air 12/22/22 15:30 Room Air 12/22/22 15:00 12/22/22 14:30 12/22/22 14:01 12/22/22 13:30 12/22/22 13:01 Room Air Intake and Output 12/22/22 12/23/22 12/23/22 23:59 07:59 15:59 Intake Total 480 / 480 735 / 735 Output Total 0 / 0 0 / 0 Balance 480 / 480 0 / 735 735 / 735 Intake: Intake, Oral Amount 480 / 480 735 / 735 Output: Output, Urine Amount 0 / 0 0 / 0 Other: Number of Unmeasured Voids 1 1 Weight 118.705 kg Patient Weight 12/23/22 23:59 Weight 118.705 kg Laboratory Results - last 24 hr 12/22/22 13:40: WBC 13.0 H, RBC 5.67 H, Hgb 16.5 H, Hct 48.4 H, MCV 85.5, MCH 29.1, MCHC 34.0, RDW 15.3, Plt Count 451 H, MPV 8.1, Neut % (Auto) 75.0, Lymph % (Auto) 17.0, [place] % (Auto) 5.6, Eos % (Auto) 1.9, Baso % (Auto) 0.5, Neut # (Auto) 9.8 H, Lymph # (Auto) 2.2, [place] # (Auto) 0.7, Eos # (Auto) 0.2, Baso # (Auto) 0.1, D-Dimer 1.06 H, Sodium 137, Potassium 4.6, Chloride 106, Carbon Dioxide 21 L, Anion Gap 14.6, BUN 13, Creatinine 0.80, Estimated Creat Clear 124, Estimated GFR 74, Est GFR ( Amer) 89, Glucose 118 H, Calcium 9.1, Magnesium 1.8, Total Bilirubin 0.9, AST 76 H, ALT 47, Alkaline Phosphatase 154 H, Troponin I 1.47 H, NT-Pro-B Natriuret Pep 6660 H, Total Protein 8.1, Albumin 4.6, Globulin 3.5 H, Albumin/Globulin Ratio 1.3 12/22/22 14:56: SARS-CoV-2 (PCR) Not detected, Influenza A Untype (PCR) Not detected, Influenza Type B (PCR) Not detected 12/22/22 16:20: Urine Color Yellow, Urine Appearance Clear, Urine pH 6.0, Ur Specific [place] 1.020, Urine Protein Negative, Urine Glucose (UA) Negative, Urine Ketones Negative, Urine Blood Negative, Urine Nitrate Negative, Urine Bilirubin 1+ A, Urine Urobilinogen 1.0, Ur Leukocyte Esterase Negative, Urine RBC None, Urine WBC Occasional, Ur Squamous Epith Cells 10-20, Urine Bacteria None 12/22/22 20:00: Troponin I 1.17 H 12/22/22 22:30: Troponin I 1.10 H 12/23/22 06:49: WBC 7.5 D, RBC 5.62 H, Hgb 16.4 H, Hct 49.0
--- NOTE | 2022-12-23 16:36 | PC.NURSE ---
pt alert and oriented t/o shift. pt lung sounds cta. abdomen soft, non tender. bowel sounds active. pt educated on being npo after mdnt for heart cath tomorrow. pt up ad yvon in room and was up to chair for prolonged period today.
--- NOTE | 2022-12-23 17:30 | CA_ITS ---
APPROVED REPORT EXAM: Comprehensive 2D, Doppler, and color-flow Echocardiogram Heat Treating Operator: Emily Yo CRT Ht: 5 ft 4 in Wt: 226lbs BSA: 2.06 BP: 119/79 mmHg Indications: Chest Pain, Shortness of Breath, Fatigue, Peripheral Edema, Hyperlipidemia, Hypertension/HDD 2D Dimensions LVOT 2.06 cm (M/F) 1.5-2.5 LA Volume 30.60 mL LA Volume Index 14.50 mL/m2 (M/F) 16-34 M-Mode Dimensions RVDd 2.78 cm (0.9-2.6) LA Diam 3.98 cm (1.9-4.0) LVDd 4.94 cm (3.5-5.7) Ao Diam 4.43 cm (2.0-3.7) LVDs 3.68 cm (3.5-5.7) IVSd 1.59 cm (0.6-1.1) PWd 1.35 cm (0.6-1.1) EF (Teich) 49.50% FS 25.10% EDV (Teich) 115.00 mL TAPSE 1.43 (<1.7) ESV (Teich) 58.10 mL LV Diastology E Decel Time 150.00 (160-240 msec) E/A Ratio 0.57 MED E' 2.80 (< 7 cm/sec) MED A' 9.20 cm/s E'/MED E' Ratio 16.18 (>14) LAT E' 3.80 (<10 cm/sec) LAT A' 12.10 cm/s E/LAT E' Ratio 11.92 (>14) Aortic Valve AO Peak GR. 5.70 mmHg Mitral Valve MV E Max Darrell. 45.00 (40-130 cm/s) MV A Velocity 79.00 (40-130 cm/s) E/A Ratio 0.57 MV Decel. Time 150.00 (160-240 ms) MV PHT 44.00 ms Pulmonary Valve PV Peak Velocity 148.00 (50-150 cm/s) Tricuspid Valve TR P. Velocity 159.00 cm/s RAP Estimate 10.00 mmHg RVSP 20.10 mmHg Left Ventricle The left ventricle is normal size. The left ventricular systolic function is low-normal There is increased LV wall thickness. There is moderate hypokinesis of the mid to distal septal, inferoseptal, inferior LV [place] and towards the LV apex. Transmitral Doppler flow pattern suggests impaired LV relaxation. LVEF is 50% Right Ventricle The right ventricle is normal size. The right ventricular systolic function is normal. Atria The left atrium size is normal. The right atrium size is normal. Aortic Valve The aortic valve is mildly thickened. There is no aortic valvular stenosis. No aortic regurgitation is present. Mitral Valve The mitral valve leaflets are mildly thickened. No evidence of mitral valve stenosis. Trace mitral regurgitation. Tricuspid Valve The tricuspid valve leaflets are thin and pliable. Trace tricuspid regurgitation. There is insufficient TR jet to estimate RVSP. Pulmonic Valve The pulmonary valve is grossly normal in structure. Trace pulmonic regurgitation. Great Vessels The aortic root is normal in size. The ascending aorta is normal in size. The IVC is not well-visualized. Pericardium There is no pericardial effusion. Other Information Study Quality: Technically Difficult Conclusion Technically difficult study due to poor acoustic windows. Low normal LV systolic function (LVEF 50%) Moderate hypokinesis of the mid to distal septal, inferoseptal, inferior LV [place] and towards the LV apex. No significant valvular stenosis or regurgitation. Electronically signed by : Mady Elizondo MD 12/23/2022 10:59:05
[2022-12-24] VITALS (17 sets, daily range): BP systolic 60–132; BP diastolic 27–98; PULSE 68–110; RESP 16–20; TEMP 36.4–36.9; O2SAT 90–98; BMI 71.0
--- NOTE | 2022-12-24 | IR_ITS ---
APPROVED REPORT PROCEDURES Left heart catheterization Left ventriculogram Selective coronary angiogram Drug-eluting stent deployment to the proximal and mid LAD in a contiguous manner INDICATION Acute non-ST elevation myocardial infarction, Coronary artery disease Informed consent was obtained prior to the procedure. COMPLICATIONS None Estimated Blood Loss: Less than 10 ml TECHNIQUE One percent lidocaine used to anesthetize the right anterior aspect of the wrist. The right radial artery was accessed via the Seldinger technique. A 6 Telugu sheath was placed in the right radial artery. 2.5 mg of Verapamil, 800 mcg of nitroglycerin, 1mg Lidocaine and 5000 U Heparin were given through the arterial sheath. The papa catheter was also used to perform left heart catheterization, left ventriculogram and selective coronary angiogram. At the end of the diagnostic angiogram therapeutic Was administered giving a therapeutic ACT and the guide catheter was placed in the left main artery followed by Choice PT extra-support wire being placed on the LAD. A 3.5 x 38 mm [place] frontier stent was deployed at 18 julio reducing the severe stenosis to 0%. STEVEN-3 flow was present before and after the procedure. There was patency of the LAD stent with normal STEVEN-3 flow down all side branches. At the end of the procedure the apparatus was removed the sheath was removed and hemostasis was achieved using TR banding patient was transferred to the postop putting in stable condition ANGIOGRAPHIC RESULTS The left main artery Normal The left anterior descending artery Has proximal hazy 60 to 70% area followed by concentric 70% stenosis which appears to be the culprit stenotic area. This is followed by an additional 50% stenosis. There are 30 and 40% stenoses along the mid LAD along a tortuous portion of the vessel The circumflex artery Nondominant with mild luminal irregularities The right coronary artery Large dominant with diffuse 10 to 20% luminal irregularities The CANTRELL ventriculogram reveals Preserved 60% The left ventricular end-diastolic pressure 25 mmHg IMPRESSION Severe proximal LAD disease which is the likely culprit for the non-STEMI Successful stenting of the proximal to mid LAD culprit disease reduced to 0% with 1 drug-eluting stent Preserved ejection fraction Persistent elevated LVEDP PLAN 1. Effient 10 mg daily plus aspirin 81 mg daily 2. LDL less than 55 to be achieved with high intensity statin 3. Avoidance of tobacco products 4. Risk factor modification 5. Cardiac rehabilitation Electronically signed by : Alejandro Modi MD 12/24/2022 14:31:46
--- NOTE | 2022-12-24 05:28 | PC.NURSE ---
Pt is alert and oriented x4, currently on RA, and telemetry with sinus tach. Pt has complain of moderate pain this shift which has been relieved with pain medication. Pt has also rested well since, Pt is prepped and ready for a heart cath this am. Pt denies needs at this time.
[2022-12-24 07:37] LABS: Basophils # 0.1 K/mm3 (0-0.2); Basophils % 0.5 % (0.1-2.0); Eosinophils # 0.4 K/mm3 (0.0-0.4); Eosinophils % 4.2 % (0.1-12.0); Hemoglobin 13.9 g/dL (12.2-16.2); Lymphocytes # 2.8 K/mm3 (0.7-4.5); Lymphocytes % 29.3 % (10-50); Mean Corpuscular HGB Conc 33.8 g/dL (31.8-35.4); Mean Corpuscular Hemoglobin 28.9 pg (27.0-31.2); Mean Corpuscular Volume 85.4 fl (81-99); Mean Platelet Volume 7.6 fl (7.4-10.4); Monocytes # 0.8 K/mm3 (0.1-1.0); Monocytes % 8.1 % (1.7-9.3); Neutrophils # 5.4 K/mm3 (1.8-7.8); Neutrophils % 57.8 % (37.0-80.0); Platelet Count 367 K/mm3 (142-424); Red Cell Distribution Width 15.3 % (11.5-17.5); White Blood Count 9.4 K/mm3 (4.8-10.8)
[2022-12-24 07:43] LABS: Chloride 103 mmol/L (98-107); Potassium 4.4 mmoL/L (3.5-5.1); Sodium 136 mmol/L (136-145)
[2022-12-24 07:46] LABS: Alanine Aminotransferase 37 U/L (12-78); Albumin Level 3.9 g/dl (3.5-5.0); Albumin/Globulin Ratio 1.3 (1.1-1.8); Alkaline Phosphatase 109 U/L (38-126); Anion Gap 11.4 mEq/L (5-15); Aspartate Amino Transferase 53 U/L (14-36); Bilirubin,Total 0.3 mg/dl (0.2-1.3); Blood Urea Nitrogen 26 mg/dl (7-17); Calcium 8.9 mg/dl (8.4-10.2); Carbon Dioxide 26 mmol/L (22.0-30.0); Creatinine Clearance Estimated 44 mL/min (50-200); Estimated Glomerular Filt Rate 46 ml/min (>60); GFR (African American) 56 ML/MIN (>60); Globulin 2.9 g/dL (1.3-3.2); Glucose 117 mg/dl (74-100); Total Protein,Serum 6.8 g/dl (6.3-8.2)
--- NOTE | 2022-12-24 09:27 | EXP.CARD.PN ---
Subjective Subjective Date: 12/24/22 Time: 08:00 Principal diagnosis: nstemi Interval history: Doing well this morning. Patient denies chest pain but continues to complain of shortness of breath. Patient is awaiting left heart catheterization today. Morning labs reviewed. Exam Data for Last 24 hours Vital signs and Labs for Last 24 Hours: Temp Pulse Resp BP Pulse Ox O2 Del Method 98 F 99 H 16 98/55 L 90 L Room Air 12/24/22 08:00 12/24/22 08:00 12/24/22 08:00 12/24/22 08:00 12/24/22 08:00 12/24/22 08:00 Laboratory Results - last 24 hr 12/24/22 07:01: WBC 9.4 D, RBC 4.80, Hgb 13.9, Hct 41.0, MCV 85.4, MCH 28.9, MCHC 33.8, RDW 15.3, Plt Count 367, MPV 7.6, Neut % (Auto) 57.8, Lymph % (Auto) 29.3, [place] % (Auto) 8.1, Eos % (Auto) 4.2, Baso % (Auto) 0.5, Neut # (Auto) 5.4, Lymph # (Auto) 2.8, [place] # (Auto) 0.8, Eos # (Auto) 0.4, Baso # (Auto) 0.1, Sodium 136, Potassium 4.4, Chloride 103, Carbon Dioxide 26, Anion Gap 11.4, BUN 26 H D, Creatinine 1.20 H, Estimated Creat Clear 44, Estimated GFR 46 L, Est GFR ( Amer) 56 L, Glucose 117 H, Calcium 8.9, Magnesium 2.0 D, Total Bilirubin 0.3, AST 53 H D, ALT 37, Alkaline Phosphatase 109, Total Protein 6.8, Albumin 3.9, Globulin 2.9, Albumin/Globulin Ratio 1.3 I & O for Last 24 hours: Intake & Output 12/21/22 12/22/22 12/23/22 12/24/22 23:59 23:59 23:59 23:59 Intake Total 480 / 480 1325 / 1325 0 / 0 Output Total 0 / 0 0 / 0 0 / 0 Balance 480 / 480 1325 / 1325 0 / 0 Weight 226 lb 261 lb 11.2 oz 416 lb 0.478 oz Constitutional Constitutional: no acute distress *Routine Respiratory Exam Respiratory: Present CTA bilaterally and symmetric chest movement *Routine Cardiovascular Exam Cardiovascular: Present RRR, Normal S1 and Normal S2 *Routine Abdominal Exam Abdominal: Present soft and normoactive bowel sounds; Absent tenderness *Routine Extremities Exam Extremities: Present full ROM and normal capillary refill; Absent edema *Routine Skin Exam Skin: Present intact, dry and warm Detailed Neck Exam: Thyroids Thyroid: Absent bruit Progress Note: A&P Assessment and plan (1) CAD (coronary artery disease): Status: Chronic (2) NSTEMI (non-ST elevated myocardial infarction): Status: Acute (3) Acute exacerbation of CHF (congestive heart failure): Status: Acute (4) Abnormal EKG: Status: Acute (5) HTN (hypertension): Status: Chronic (6) HLD (hyperlipidemia): Status: Chronic Assessment and Plan Assessment and Plan for All Diagnoses:: History of coronary artery disease NSTEMI Tachycardia -Troponin 1.47 trending down to 1.10 -EKG shows T wave inversion -CTA chest negative for PE -Left heart cath 2018: Moderate to severe disease in the small-moderate branch vessels, normal ejection fraction, mildly elevated LVEDP -Normal nuclear stress 2021 -Given patient's symptoms and presence of elevated troponin we will proceed with left heart catheterization. Discussed risk versus benefits with patient she is agreeable to proceed. -Patient has been loaded with aspirin and Plavix. Continue Lovenox 120 mg subcutaneous twice daily, aspirin 81 mg p.o. daily, Plavix 75 mg daily, Lipitor 20 mg p.o. daily, and irbesartan 75 mg p.o daily. Add Coreg 3.125 mg p.o. twice daily. 1450: Patient is now status post left heart catheterization. Patient received stenting to LAD. Please continue DAPT with Effient and aspirin as listed below. Acute on chronic HFpEF NYHA III -Continue Bumex 1 mg p.o. daily -Add Jardiance 10 mg p.o. daily prior to discharge -Echo 12/23/2022: Low normal LV systolic function EF 50%, moderate hypokinesis of the mid to distal septal, inferior septal, inferior LV [place] and toward the LV apex. No significant valvular stenosis or regurgitation. Hypertension -Currently well controlled. Continue irbesartan 75 mg p.o. daily and Coreg 3.125 mg p.o. twice daily CV summary 12/24/2022 update: Status post left heart cath with sten
--- NOTE | 2022-12-24 14:05 | ECG_ITS ---
APPROVED REPORT Exam: Resting ECG HR:76 bpm ECG Measurements Heart Rate 76 AXES KS 161 P 40 QRSd 98 QRS 62 QT 380 T -48 QTc [address] DEVIATION AND MODERATE T-WAVE ABNORMALITY, CONSIDER ANTEROLATERAL ISCHEMIA [-0.1+ mV T-WAVE IN V3-V6] ABNORMAL ECG UNCONFIRMED REPORT Electronically signed by : Delonte Young MD 12/24/2022 21:25:10
[2022-12-24 15:10] LABS: CATHL Activated Clotting Time > 400 SEC (74-125)
--- NOTE | 2022-12-24 15:27 | EXP.DC.SUM ---
General Admission date:: 12/22/22 Discharge date: 12/24/22 HPI HPI HPI: 57-year-old female morbid obesity who presents with 3 days of worsening dyspnea with exertion, increased belching and heartburn. States that she is fatigued when she lays flat and is less short of breath when she sits up. Gets winded just walking across the room. Has had some intermittent right-sided chest pain. Denies any ursula left-sided chest pain. No nausea or vomiting. No diarrhea. No syncope. On arrival to the ER, patient is tach. Had blood pressure within normal range at upper [place] KG showing T wave inversions. Labs remarkable for elevated troponin at 1.47 and elevated BNP of 6660. Patient also reports that she was previously on prednisone, 5 mg daily until a little over a month ago. This was reportedly for adrenal insufficiency but repeat labs showed everything was back to normal. These meds were stopped and she has been fine until the past 3 days. No known sick contacts. ER concern for NSTEMI contacted medicine for admission. My evaluation, patient has no abdominal pain. Lungs are clear on exam. Family at bedside and updated of plan. On telemetry with sinus rhythm/tachycardia. Stable on room air. History of asthma and reports her shortness of breath has not improved with breathing treatments. Takes her diuretic daily, has had no increased edema that she knows of. Hospital Course Hospital Course Hospital Course: 57-year-old female with history of hypertension, CAD, obesity, and asthma who presented to the ER with 3 days of vague belching, early satiety, chest discomfort. Found to have elevated troponin and elevated BNP concerning for NSTEMI and CHF exacerbation. Discussed case with the ER physician, requested admission for serial troponins, monitoring on telemetry, and further eval by cardiology. Medicine agreed to admit to inpatient status on telemetry. Cardiology consulted, umedically managed ntil patient medically managed until taken for heart cath on 12/24. See findings below. Intervened on LAD lesion with 1 drug-eluting stent. Stable for discharge home with continued medical management. Problems addressed as follows: NSTEMI CHF exacerbation CAD Hypertension Hyperlipidemia -Troponin 1.47 on admission, trended down to 1.1. Patient was initiated on aspirin, Plavix, therapeutic Lovenox. Medically managed until able to intervene with left heart cath. Received Bumex daily for volume overload as her BNP was 6660 on admission. Monitored on telemetry with persistent T wave inversions but no ST elevations or acute ischemic changes. Echo was obtained on 12/23 within the low normal LV systolic function. EF 50%. Moderate hypokinesis of the mid to distal septal and inferoseptal LV wall toward the apex. No significant valvular stenosis or regurgitation. Findings on left heart cath with LAD stenosis. Intervened with 1 drug-eluting stent. See full report below. We will continue medical management with aspirin 81 mg daily, Effient 10 mg daily, Bumex 1 mg daily, irbesartan 75 mg daily, and Lipitor 20 mg daily. We will initiate Jardiance 10 mg daily for CHF and hypertension benefit.. Stable for discharge home with close follow-up with cardiology as an outpatient. Chronic conditions: -Continue pantoprazole for GERD -Continue pregabalin 150 mg twice daily for pain -Continue Singulair 10 mg nightly for allergy -Continue breathing treatments per home regimen including Symbicort, Spiriva, albuterol -Continue lemborexant 5 mg nightly for sleep ANGIOGRAPHIC RESULTS The left main artery Normal The left anterior descending artery Has proximal hazy 60 to 70% area followed by concentric 70% stenosis which appears to be the culprit stenotic area. This is followed by an additional 50% stenosis. There are 30 and 40% stenoses along the mid LAD along a tortuous portion of the vessel The circumflex artery Nondominant with mild luminal irregularities The right coronary artery
--- NOTE | 2022-12-24 15:53 | HMH.PHAINT1 ---
Pharmacy Intervention Comments: DISCHARGE MEDICATION COUNSELING PROVIDED. DISCUSSED STOPPING LOSARTAN AND DILTIAZEM. START THE FOLLOWING: -ASPIRIN (BLOOD THINNER, DAILY, TAKE WITH FOOD, UPSET STOMACH, BLEED/BRUISE RISK, BLEED LOCATION/APPEARANCE, BUMP HEAD = GO TO ER TO RULE OUT HEAD BLEED) -PRASUGREL (BLOOD THINNER, DAILY, BLEED/BRUISE RISK/APPEARANCE, SOB, HEADACHE POSSIBLE) -IRBESARTAN (FOR BP, DAILY, DIZZINESS,LIGHTHEADEDNESS, COUGH, LOWER LIMB SWELLING, INCREASED POTASSIUM LEVELS POSSIBLE) -CARVEDILOL (FOR BP/HEART RATE, TWICE DAILY, TAKE WITH FOOD, DIZZINESS,LIGHTHEADEDNESS, HEADACHE, FATIGUE, SLOWED HEART RATE POSSIBLE) PATIENT VERBALIZED NO QUESTIONS AT THIS TIME.
--- NOTE | 2022-12-24 19:53 | PC.NURSE ---
pt exited the floor via wheelchair @19:49
--- NOTE | 2022-12-28 15:43 | CARE MANAGER ---
Patient states she is doing well. She picked up her new medications and is aware of what needed to be stopped. She followed up with cardiology today instead of the 2nd and denies questions or concerns. OSIEL Staples
== END 2022-12-24 19:50 | disposition home or self-care (01) | DRG 321 ==
LOC: ER 16:10 → 2ND 17:26
PROVIDERS: Emergency Medicine; Internal Medicine; Admitting Provider Internal Medicine Adolescent Medicine; Emergency Provider Emergency Medicine; PCP Nurse Practitioner Family; Visit Provider Internal Medicine Adolescent Medicine
PROC: 027034Z Dilation of Coronary Artery, One Artery with Drug-eluting Intraluminal Device, Percutaneous Approach (ICD-10-PCS; principal; 2022-12-24 09:15)
DX: I21.4 Non-ST elevation (NSTEMI) myocardial infarction (principal); I50.33 Acute on chronic diastolic (congestive) heart failure; Z68.45 Body mass index [BMI] 70 or greater, adult; I11.0 Hypertensive heart disease with heart failure; I25.10 Atherosclerotic heart disease of native coronary artery without angina pectoris; K21.9 Gastro-esophageal reflux disease without esophagitis; J45.909 Unspecified asthma, uncomplicated; E78.5 Hyperlipidemia, unspecified; G47.00 Insomnia, unspecified; E66.9 Obesity, unspecified
CPT/HCPCS: 36415; 71275; 80053; 80061; 81001; 83735; 83880; 84484; 85025; 85347; 85378; 87636; 92928; 93005; 93306; 93458; 94640; 99152; 99153; 99291; C1725; C1769; C1876; C9600; J1644; J2405; J3475; Q9957; Q9967

== ENCOUNTER → 2022-12-28 13:33 | Outpatient (CLI) | payer OTHER, SELFPAY ==
[2022-12-28 14:38] LABS: Basophils % 0.5 % (0.1-2.0); Eosinophils # 0.6 K/mm3 (0.0-0.4); Eosinophils % 5.9 % (0.1-12.0); Hematocrit 41.1 % (37.0-47.0); Hemoglobin 13.7 g/dL (12.2-16.2); Lymphocytes # 2.2 K/mm3 (0.7-4.5); Lymphocytes % 22.4 % (10-50); Mean Corpuscular HGB Conc 33.2 g/dL (31.8-35.4); Mean Corpuscular Volume 87.4 fl (81-99); Mean Platelet Volume 7.9 fl (7.4-10.4); Monocytes # 0.6 K/mm3 (0.1-1.0); Monocytes % 6.1 % (1.7-9.3); Neutrophils # 6.4 K/mm3 (1.8-7.8); Neutrophils % 65.1 % (37.0-80.0); Platelet Count 368 K/mm3 (142-424); Red Blood Count 4.71 M/mm3 (4.20-5.40); Red Cell Distribution Width 15.4 % (11.5-17.5); White Blood Count 9.8 K/mm3 (4.8-10.8)
[2022-12-28 15:13] LABS: Blood Urea Nitrogen 19 mg/dl (7-17); Calcium 9.5 mg/dl (8.4-10.2); Carbon Dioxide 25 mmol/L (22.0-30.0); Chloride 101 mmol/L (98-107); Estimated Glomerular Filt Rate 64 ml/min (>60); GFR (African American) 78 ML/MIN (>60); Glucose 101 mg/dl (74-100); Sodium 138 mmol/L (136-145)
[2022-12-28 15:15] LABS: Blood Urea Nitrogen 19 mg/dl (7-17); Estimated Glomerular Filt Rate 64 ml/min (>60); GFR (African American) 78 ML/MIN (>60)
[2022-12-28 15:22] LABS: NT Pro Brain Natriuretic Pep. 709 pg/mL (0-125)
== END ==
PROVIDERS: Nurse Practitioner; PCP Nurse Practitioner Family; Visit Provider Internal Medicine
DX: R06.00 Dyspnea, unspecified (principal); R07.9 Chest pain, unspecified; I25.10 Atherosclerotic heart disease of native coronary artery without angina pectoris; I50.9 Heart failure, unspecified; E78.5 Hyperlipidemia, unspecified; R60.9 Edema, unspecified; R94.31 Abnormal electrocardiogram [ECG] [EKG]; I63.9 Cerebral infarction, unspecified; K21.9 Gastro-esophageal reflux disease without esophagitis; R30.0 Dysuria; R35.0 Frequency of micturition; I11.0 Hypertensive heart disease with heart failure; Z79.899 Other long term (current) drug therapy
CPT/HCPCS: 36415; 80048; 82565; 83880; 84520; 85025; 87086

== ENCOUNTER 2023-01-05 09:52 | Outpatient (RCR) | payer BC, OTHER, SELFPAY | END 2023-04-02 11:00 | disposition home or self-care (01) | LOC: PT 09:52 | PROVIDERS: Visit Provider Internal Medicine | DX: I25.10 Atherosclerotic heart disease of native coronary artery without angina pectoris (principal); Z95.5 Presence of coronary angioplasty implant and graft | CPT/HCPCS: 93798 ==

== ENCOUNTER → 2023-01-18 08:07 | Outpatient (CLI) | payer OTHER, SELFPAY ==
--- NOTE | 2023-01-18 08:08 | XR_ITS ---
FINAL REPORT CLINICAL HISTORY: screening for osteoporosis COMPARISON: 07/22/2021 FINDINGS: Using 03/03, the bone mineral density of the left forearm is 0.368 g/cm2, corresponding to T-score of -5.4, consistent with osteoporosis. Previously was 0.346 g/cm2 with T-score of-1.7. Using the left hip, the bone mineral density of the femoral neck is 0.616 g/cm2, corresponding to a T-score of -2.1, consistent with low bone density. Previously was 0.734 g/cm2 with T-score of-1.7. Using the right hip, the bone mineral density of the femoral neck is 0.702 g/cm2, corresponding to a T-score of -1.3, consistent with low bone density. Previously was 0.715 g/cm2 with T-score of -1.2. FRAX 10 year fracture risk is 1.6% for a hip fracture and 14% for a major osteoporotic fracture. NOTE: T-score: Standard deviation compared with peak bone mass of young adult mean. *Following the recommendations of the International Society of Bone densitometry, classification of hip BMD is based on the lower of two T-scores; total hip or femoral neck. IMPRESSION: Diminished bone mineral density in the left forearm consistent with osteoporosis and in the bilateral hips consistent with low bone density. Reviewed, Interpreted and Dictated by Lamonte Jeffery III, MD Transcribed by Marce Morse Authenticated and [facility]
--- NOTE | 2023-01-18 08:08 | MM_ITS ---
PROCEDURE INFORMATION: Exam: MG Bilateral Diagnostic Breast Tomosynthesis Exam date and time: 01/18/2023 8:29 AM Age: 57 years old Clinical indication: PT states had a bruise on breast and now feeling a knot in the right anterolateral breast TECHNIQUE: Imaging protocol: Bilateral Diagnostic tomosynthesis and 2D mammography including computer-aided detection (CAD) when performed. Unilateral or bilateral exam. COMPARISON: 1. MG MM DIG SCREENING MAMM BI W/CAD 11/28/2019 11:04 AM 2. MG SCBI MM Dig screening mamm BI w/CAD 12/20/2017 11:15 AM FINDINGS: MAMMOGRAPHY: The breasts are heterogeneously dense, which may obscure small masses. There is no stellate mass, architectural distortion or suspicious microcalcifications in either breast to suggest malignancy. A skin marker was placed over an area of palpable concern in the right anterolateral breast. No suspicious findings are seen on routine views. No skin thickening or axillary adenopathy. IMPRESSION: Patient to return for right breast ultrasound for further evaluation of a palpable abnormality ASSESSMENT: BI-RADS Category 0: Incomplete- Need Additional Imaging Evaluation and/or Prior Mammograms for Comparison
== END ==
PROVIDERS: PCP Nurse Practitioner Family; Visit Provider Nurse Practitioner Family
DX: Z13.820 Encounter for screening for osteoporosis (principal); Z12.31 Encounter for screening mammogram for malignant neoplasm of breast
CPT/HCPCS: 77063; 77067; 77080

== ENCOUNTER → 2023-01-20 13:16 | Outpatient (CLI) | payer OTHER, SELFPAY ==
[2023-01-20 14:23] LABS: 25-OH Vitamin D, Total 75.9 ng/mL (30-100)
== END ==
PROVIDERS: PCP Nurse Practitioner Family; Visit Provider Nurse Practitioner Family
DX: E55.9 Vitamin D deficiency, unspecified (principal); Z68.41 Body mass index [BMI] 40.0-44.9, adult
CPT/HCPCS: 82306

== ENCOUNTER → 2023-02-04 09:39 | Outpatient (CLI) | payer OTHER, SELFPAY ==
--- NOTE | 2023-02-04 09:40 | US_ITS ---
PROCEDURE INFORMATION: Exam: US Right Breast, Complete Exam date and time: 02/04/2023 10:01 AM Age: 57 years old Clinical indication: Palpable mass on right breast TECHNIQUE: Imaging protocol: Complete ultrasound of all four quadrants of the right breast and the retroareolar regions, including ultrasound of the axilla when performed. COMPARISON: MG MM DIG SCREENING MAMM BI W/CAD 01/18/2023 8:29 AM FINDINGS: Breast: Sonographic images of the right breast including the retroareolar region, all 4 quadrants and the axilla demonstrates a superficial subcutaneous ovoid predominantly echogenic mass. It measures 1.2 x 0.6 x 1.3 cm and is located in the 2 o'clock axis 1 cm from the nipple where the patient reports palpable abnormality. It has central subcentimeter hypoechoic component. The finding likely represents benign posttraumatic fat necrosis. Incidental 0.4 cm cyst in the 8 o'clock axis 8 cm from the nipple. No architectural distortion or acoustical shadowing. No skin thickening or axillary adenopathy. Review of the patient's mammogram dated 12/24/2022 did not demonstrate any suspicious findings. IMPRESSION: Palpable abnormality in the right periareolar region corresponds sonographically to probable benign fat necrosis. A six-month follow-up targeted right breast ultrasound is recommended to ensure resolution or stability of the finding.Further evaluation of a palpable abnormality should be based on clinical grounds regardless of radiographic findings or lack thereof. ASSESSMENT: BI-RADS Category 3: Probably benign
== END ==
PROVIDERS: PCP Nurse Practitioner Family; Visit Provider Nurse Practitioner Family
DX: N63.10 Unspecified lump in the right breast, unspecified quadrant (principal); R92.8 Other abnormal and inconclusive findings on diagnostic imaging of breast
CPT/HCPCS: 76641

== ENCOUNTER 2023-02-11 11:03 | Outpatient (CLI) | payer OTHER, SELFPAY ==
[2023-02-11 11:15] VITALS: BP 156/94; PULSE 97; RESP 18; TEMP 36.6; O2SAT 96
== END 2023-02-11 11:35 | disposition home or self-care (01) ==
LOC: INF 11:03
PROVIDERS: PCP Nurse Practitioner Family; Visit Provider Nurse Practitioner Family
DX: M81.0 Age-related osteoporosis without current pathological fracture (principal)
CPT/HCPCS: 96372; J0897

== ENCOUNTER → 2023-02-24 14:14 | Outpatient (CLI) | payer OTHER, SELFPAY ==
--- NOTE | 2023-02-24 14:14 | CA_ITS ---
APPROVED REPORT EXAM: Comprehensive 2D, Doppler, and color-flow Echocardiogram Research And Development Researcher: Nadine Corona RT(R) Ht: 5 ft 5 in Wt: 257lbs BSA: 2.20 BP: 103/50 mmHg Indications: Abn EKG, HTN, hyperlipidemia, CAD, hx NSTEMI, ZIGGY, obesity, recent cardiac stents 2D Dimensions EF AP4 71.60 % GL Strain -11.9 % M-Mode Dimensions RVDd 2.31 cm (0.9-2.6) LA Diam 4.49 cm (1.9-4.0) LVDd 4.38 cm (3.5-5.7) LVDs 3.20 cm (3.5-5.7) IVSd 0.98 cm (0.6-1.1) PWd 0.89 cm (0.6-1.1) EF (Teich) 52.80% FS 26.90% EDV (Teich) 86.80 mL ESV (Teich) 41.00 mL LV Diastology E Decel Time 177 (160-240 msec) E/A Ratio 1.0 Mitral Valve MV E Max Darrell. 86.0 (40-130 cm/s) MV A Velocity 85.0 (40-130 cm/s) E/A Ratio 1.01 MV PHT 52.0 ms Left Ventricle The left ventricle is normal size. The left ventricular systolic function is normal. The left ventricular ejection fraction is within the normal range. There is normal left ventricular wall thickness. There is mild septal and inferoseptal LV wall hypokinesis present. The left ventricular diastolic function is normal. LVEF is 55%. Right Ventricle Right ventricle is mildly dilated. The right ventricular systolic function is normal. Atria The left atrium size is normal. The right atrium size is normal. There is no Doppler evidence of interatrial shunt. Aortic Valve The aortic valve is normal in structure. There is no aortic valvular stenosis. No aortic regurgitation is present. Mitral Valve The mitral valve is normal in structure. No evidence of mitral valve stenosis. Trace mitral regurgitation. Tricuspid Valve The tricuspid valve leaflets are thin and pliable. Trace tricuspid regurgitation. There is insufficient TR jet to estimate RVSP. Pulmonic Valve The pulmonary valve is normal in structure. Trace pulmonic regurgitation. Great Vessels The aortic root is normal in size. The ascending aorta is normal in size. IVC is normal in size and collapses >50% with inspiration. Pericardium There is no pericardial effusion. Other Information Study Quality: Technically Difficult Conclusion Technically difficult study due to poor acoustic windows. Normal biventricular systolic function. Mild septal and inferoseptal LV wall hypokinesis. Mild RV dilation. No significant valvular stenosis or regurgitation. Electronically signed by : Mady Elizondo MD 02/25/2023 13:01:24
== END ==
LOC: RT 14:14
PROVIDERS: PCP Nurse Practitioner Family; Visit Provider Physician Assistant
DX: R94.31 Abnormal electrocardiogram [ECG] [EKG] (principal); I25.10 Atherosclerotic heart disease of native coronary artery without angina pectoris; I10 Essential (primary) hypertension; I21.4 Non-ST elevation (NSTEMI) myocardial infarction; E78.5 Hyperlipidemia, unspecified; K21.9 Gastro-esophageal reflux disease without esophagitis; E66.9 Obesity, unspecified; Z68.41 Body mass index [BMI] 40.0-44.9, adult
CPT/HCPCS: 93306

== ENCOUNTER 2023-03-16 12:52 | Outpatient (CLI) | payer BC, SELFPAY ==
[2023-03-16 13:25] LABS: Basophils # 0.1 K/mm3 (0-0.2); Basophils % 0.6 % (0.1-2.0); Eosinophils # 0.5 K/mm3 (0.0-0.4); Eosinophils % 4.8 % (0.1-12.0); Hematocrit 44.8 % (37.0-47.0); Hemoglobin 13.7 g/dL (12.2-16.2); Lymphocytes # 2.9 K/mm3 (0.7-4.5); Lymphocytes % 28.2 % (10-50); Mean Corpuscular HGB Conc 30.7 g/dL (31.8-35.4); Mean Corpuscular Hemoglobin 27.3 pg (27.0-31.2); Mean Corpuscular Volume 88.8 fl (81-99); Mean Platelet Volume 6.9 fl (7.4-10.4); Monocytes # 0.6 K/mm3 (0.1-1.0); Monocytes % 5.4 % (1.7-9.3); Neutrophils # 6.3 K/mm3 (1.8-7.8); Platelet Count 423 K/mm3 (142-424); Red Blood Count 5.04 M/mm3 (4.20-5.40); Red Cell Distribution Width 14.1 % (11.5-17.5); White Blood Count 10.4 K/mm3 (4.8-10.8)
[2023-03-16 13:35] LABS: Alanine Aminotransferase 35 U/L (12-78); Albumin Level 4.1 g/dl (3.5-5.0); Alkaline Phosphatase 174 U/L (38-126); Anion Gap 12.8 mEq/L (5-15); Aspartate Amino Transferase 46 U/L (14-36); Bilirubin,Direct 0.1 mg/dl (0.0-0.4); Bilirubin,Indirect 0.2 mg/dL (0.0-0.9); Bilirubin,Total 0.3 mg/dl (0.2-1.3); Bilirubin,Unconjugated 0.2 mg/dL (0.0-1.1); Blood Urea Nitrogen 18 mg/dl (7-17); Calcium 8.5 mg/dl (8.4-10.2); Carbon Dioxide 24 mmol/L (22.0-30.0); Chloride 107 mmol/L (98-107); Chol/HDL Ratio 3.9 (1-3.5); Cholesterol 124 mg/dl (140-200); Estimated Glomerular Filt Rate 64 ml/min (>60); GFR (African American) 78 ML/MIN (>60); Glucose 112 mg/dl (74-100); HDL Cholesterol 32 mg/dl (40-60); Potassium 4.8 mmoL/L (3.5-5.1); Sodium 139 mmol/L (136-145); Total Protein,Serum 6.8 g/dl (6.3-8.2); Triglycerides 201 mg/dl (30-150); VLDL Cholesterol 40 mg/dL (0-40)
[2023-03-16 13:57] LABS: Iron 44 ug/dL (37-170)
[2023-03-16 14:11] LABS: Total Iron Binding Capacity 367 ug/dL (265-497)
[2023-03-16 14:14] LABS: Free T4 (Free Thyroxine) 1.22 ng/dl (0.78-2.19)
[2023-03-16 14:27] LABS: Hemoglobin A1C 5.4 % (4.0-6.0)
[2023-03-16 15:32] LABS: Thyroid Stimulating Hormone 1.79 uIU/mL (0.465-4.68)
== END 2023-03-16 23:59 ==
PROVIDERS: Physician Assistant; PCP Nurse Practitioner Family; Visit Provider Nurse Practitioner
DX: D64.9 Anemia, unspecified (principal); E78.5 Hyperlipidemia, unspecified; I11.9 Hypertensive heart disease without heart failure; I21.4 Non-ST elevation (NSTEMI) myocardial infarction; I25.10 Atherosclerotic heart disease of native coronary artery without angina pectoris; K21.9 Gastro-esophageal reflux disease without esophagitis; R94.31 Abnormal electrocardiogram [ECG] [EKG]; E66.09 Other obesity due to excess calories; Z68.41 Body mass index [BMI] 40.0-44.9, adult
CPT/HCPCS: 36415; 80048; 80061; 80076; 83036; 83540; 83550; 83735; 84439; 84443; 85025

== ENCOUNTER 2023-03-22 23:11 | Emergency (ER) | payer BC, SELFPAY ==
[2023-03-22 23:12] VITALS: BP 93/66; PULSE 89; RESP 20; TEMP 36.9; O2SAT 95; BMI 41.5
[2023-03-22 23:18] VITALS: BP 93/66; PULSE 92; O2SAT 94
--- NOTE | 2023-03-22 23:22 | XR_ITS ---
PROCEDURE INFORMATION: Exam: XR Left Femur Exam date and time: 03/22/2023 11:21 PM Age: 58 years old Clinical indication: Pain; Thigh; Left; Additional info: Fall TECHNIQUE: Imaging protocol: Radiologic exam of the left femur. Views: 2 views. COMPARISON: CR XR KNEE LT 3V 10/24/2018 1:22 PM FINDINGS: Bones/joints: Status post left total knee arthroplasty. No fracture or dislocation. Osteopenia. Soft tissues: Unremarkable. IMPRESSION: No acute findings.
--- NOTE | 2023-03-22 23:22 | XR_ITS ---
PROCEDURE INFORMATION: Exam: XR Left Knee Exam date and time: 03/22/2023 11:22 PM Age: 58 years old Clinical indication: Pain; Knee; Left; Additional info: Fall TECHNIQUE: Imaging protocol: Radiologic exam of the left knee. Views: 3 views. COMPARISON: CR XR KNEE LT 3V 10/24/2018 1:22 PM FINDINGS: Bones/joints: Status post left total knee arthroplasty. No fracture or dislocation. Osteopenia. Soft tissues: Extensive anteromedial soft tissue swelling. IMPRESSION: Extensive anteromedial soft tissue swelling. No fracture or dislocation.
--- NOTE | 2023-03-22 23:22 | XR_ITS ---
PROCEDURE INFORMATION: Exam: XR Left Tibia and Fibula Exam date and time: 03/22/2023 11:24 PM Age: 58 years old Clinical indication: Pain; Lower leg; Left; Additional info: Fall TECHNIQUE: Imaging protocol: Radiologic exam of the left tibia and fibula. Views: 2 views. COMPARISON: CR XR FOOT LT MIN 3V 10/24/2018 1:22 PM FINDINGS: Bones/joints: Status post left total knee arthroplasty. No fracture or dislocation. Osteopenia. Soft tissues: Normal. IMPRESSION: No acute findings.
--- NOTE | 2023-03-22 23:28 | PC.NURSE ---
patient gone to XRay at this time.
--- NOTE | 2023-03-22 23:42 | PC.NURSE ---
patient back in room at this time.
--- NOTE | 2023-03-22 23:59 | HMH.EDGENADL ---
Discharge Plan Disposition Patient Disposition: Home, Self-Care Condition: Good Chief Complaint: Extremity Injury, Lower Prescriptions Prescriptions: No Action montelukast [Singulair] 10 mg tablet 10 mg PO PM tiotropium bromide [Spiriva Respimat] 2.5 mcg/actuation mist 2 puff INHALATION DAILY budesonide-formoterol [Symbicort] 160-4.5 mcg/actuation HFA aerosol inhaler 2 inh INHALATION BID albuterol sulfate [ProAir HFA] 90 mcg/actuation HFA aerosol inhaler 2 puff INHALATION Q4HP PRN (Reason: Shortness Of Breath) pantoprazole [Protonix] 40 mg tablet,delayed release (DR/EC) 40 mg PO BID ipratropium-albuterol 0.5 mg-3 mg(2.5 mg base)/3 mL solution for nebulization 3 ml inhalation NEEDED PRN (Reason: Breathing Problems) Loratadine-D 10-240 mg tablet extended release 24 hr 1 tab PO DAILY PRN (Reason: allergy symptoms) 30 Days Qty: 30 0RF Prolia 60 mg/mL syringe 60 mg SQ [id number] Qty: 1 2RF levocetirizine 5 mg tablet 5 mg PO DAILY PRN (Reason: Allergy Symptoms) hydrocodone-acetaminophen 7.5-325 mg tablet 1 tab PO BIDP PRN (Reason: Moderate Pain (Scale Score 5-6)) Dupixent Syringe 300 mg/2 mL syringe 300 mg SQ Q2W Rx Instructions: twice a month atorvastatin 40 mg tablet PO isosorbide mononitrate 30 mg tablet extended release 24 hr PO azelastine 137 mcg (0.1 %) aerosol,spray intranasal ibandronate 150 mg tablet PO fluconazole 150 mg tablet 150 mg PO Q3D Qty: 2 0RF ondansetron HCl 4 mg tablet 4 mg PO Q8H PRN (Reason: nausea and vomiting) Qty: 30 0RF promethazine 25 mg tablet 25 mg PO Q6H PRN (Reason: nausea and vomiting) Qty: 30 0RF Dayvigo 5 mg tablet 5 mg PO HS 30 Days Qty: 30 2RF pregabalin 200 mg capsule 200 mg PO BID 30 Days Qty: 60 1RF duloxetine 60 mg capsule,delayed release(DR/EC) 60 mg PO BID 30 Days Qty: 60 3RF bumetanide 1 mg tablet 1 mg PO DAILY Qty: 90 3RF cyclobenzaprine 10 mg tablet 10 mg PO DAILY PRN (Reason: muscle spasm) 30 Days Qty: 30 0RF Farxiga 10 mg tablet 10 mg PO DAILY Qty: 30 4RF Linzess 145 mcg capsule 145 mcg PO DAILY fluticasone propionate 50 mcg/actuation spray,suspension 1 spray INTRANASAL DAILY aspirin 81 mg tablet,delayed release (DR/EC) 81 mg PO DAILY carvedilol 3.125 mg tablet 3.125 mg PO BID ranolazine [Ranexa] 500 mg tablet extended release 12 hr 500 mg PO BID prasugrel 10 mg tablet 10 mg PO DAILY irbesartan 75 mg tablet 37.5 mg PO DAILY rosuvastatin 40 mg Tablet 40 mg PO HS glutathione 500 mg Capsule 250 mg PO DAILY milk thistle 500 mg Capsule 750 mg PO DAILY Rx Instructions: give with meal/snack [id number] [Citracal-D3 Maximum Plus] 325 mg-12.5 mcg -2.75 mg Tablet 2 tab PO DAILY Multivitamin Gummies 200 mcg Tablet,Chewable 2 tab PO DAILY Referrals Follow up/Referrals: Saima Dorman APRN [Primary Care Provider] - See instructions Clinical Impressions Clinical Impression: Traumatic ecchymosis of left knee Instructions Patient Instructions: DI for Knee Pain Discharge ED Provider: Kristina Mcneil General Adult HPI General Chief complaint: Extremity Injury, Lower Stated complaint: fall Time Seen by Provider: 03/22/23 23:15 Mode of Arrival: Wheelchair Source of Information: Patient Limitations: No Limitations Description of Symptoms (Recalled from ER Triage Doc. by RN): pt got tripped on a phone cord [employer] and landed straight down on left knee, pt is on effient and ASA. pt has recent heart cath with stent placed in December with . pt took 1.5 tab of 7.5 mg lortab for pain relief prior to ER arrival. left knee is swollen and bruised History of Present Illness HPI narrative: Patient has a PMHx significant for CAD status post PCI on Effient, hyperlipidemia, asthma, diabetes, anxiety, depression who presents to the ED with complaints of fall. Patient notes that she was walking through her living room when she tripped over a phone charging cord. Patient notes that she fell forwards landing directly onto her left knee. Patient notes that she landed on hardwood miguel. Patient denies any head trauma, LOC. Left knee is swollen and bruised since the fall. Patient notes that she has been unable to bear any weight. Related Data Home Medications Medication Instructions Recorded Confirmed albuterol sulfate 90 mcg/actuation 2 puff inhalation Q4HP PRN 05/27/17 03/16/23 aerosol inhaler (ProAir HFA) Shortness Of Breath budesonide-formoterol HFA 160 2 inh inhalation BID Breathing 05/27/17 03/16/23 mcg-4.5 mcg/actuation aerosol Problems inhaler (Symbicort) montelukast 10 mg tablet 10 mg PO PM Allergy symptoms 05/27/17 03/16/23 (Singulair) tiotropium bromide 2.5 2 puff inhalation DAILY Breathing 05/27/17 03/16/23 mcg/actuation mist for inhalation Problems (Spiriva Respimat) pantoprazole 40 mg tablet,delayed 40 mg PO BID Acid Reflux 11/14/18 03/16/23 release (Protonix) hydrocodone 7.5 mg-acetaminophen 1 tab PO BIDP PRN Moderate Pain 07/27/19 03/16/23 325 mg tablet (Scale Score 5-6) linaclotide 145 mcg capsule 145 mcg PO DAILY Constipation 12/22/22 03/16/23 (Linzess) fluticasone propionate 50 1 spray intranasal DAILY Allergy 12/23/22 03/16/23 mcg/actuation nasal Symptoms spray,suspension dupilumab 300 mg/2 mL subcutaneous 300 mg SQ Q2W Asthma 12/28/22 03/16/23 syringe (Dupixent) ipratropium 0.5 mg-albuterol 3 mg 3 ml inhalation NEEDED PRN 12/28/22 03/16/23 (2.5 mg base)/3 mL nebulization Breathing Problems soln levocetirizine 5 mg tablet 5 mg PO DAILY PRN Allergy Symptoms 12/28/22 03/16/23 aspirin 81 mg tablet,delayed 81 mg PO DAILY Blood Thinner 02/11/23 03/16/23 release calcium 325 mg-vit D3 12.5 2 tab PO DAILY bone supplement 02/11/23 03/16/23 mcg-zinc 2.75 [id number] tablet (Citracal-D3 Maximum Plus) carvedilol 3.125 mg tablet 3.125 mg PO BID heart rate 02/11/23 03/16/23 glutathione 500 mg capsule 250 mg PO DAILY Supplement 02/11/23 03/16/23 irbesartan 75 mg tablet 37.5 mg PO DAILY High Blood 02/11/23 03/16/23 Pressure milk thistle 500 mg capsule 750 mg PO DAILY Supplement 02/11/23 03/16/23 multivitamin with minerals-folic 2 tab PO DAILY Supplement 02/11/23 03/16/23 acid 200 mcg chewable tablet (Multivitamin Gummies) prasugrel 10 mg tablet 10 mg PO DAILY Blood Thinner 02/11/23 03/16/23 ranolazine 500 mg tablet,extended 500 mg PO BID Heart Disease 02/11/23 03/16/23 release,12 hr (Ranexa) rosuvastatin 40 mg tablet 40 mg PO HS Cholesterol 02/11/23 03/16/23 atorvastatin 40 mg tablet mg PO 03/16/23 03/16/23 azelastine 137 mcg (0.1 %) nasal intranasal 03/16/23 03/16/23 spray aerosol ibandronate 150 mg tablet mg PO 03/16/23 03/16/23 isosorbide mononitrate 30 mg mg PO 03/16/23 03/16/23 tablet,extended release 24 hr Previous Rx's Medication Instructions Recorded ondansetron HCl 4 mg tablet 4 mg PO Q8H PRN nausea and 01/08/23 vomiting #30 tabs promethazine 25 mg tablet 25 mg PO Q6H PRN nausea and 01/08/23 vomiting #30 tabs lemborexant 5 mg tablet (Dayvigo) 5 mg PO HS Sleep 30 days #30 tabs 01/15/23 loratadine-pseudoephedrine ER 10 1 tab PO DAILY PRN allergy 01/20/23 mg-240 mg tablet,extended symptoms 30 days #30 tabs [id number] (Loratadine-D) bumetanide 1 mg tablet 1 mg PO DAILY Fluid #90 tabs 01/25/23 duloxetine 60 mg capsule,delayed 60 mg PO BID Depression 30 days 01/25/23 release #60 caps pregabalin 200 mg capsule 200 mg PO BID Pain 30 days #60 caps 01/25/23 denosumab 60 mg/mL subcutaneous 60 mg SQ [id number] #1 mL 01/27/23 syringe (Prolia) cyclobenzaprine 10 mg tablet 10 mg PO DAILY PRN muscle spasm 30 03/03/23 days #30 tabs dapagliflozin propanediol 10 mg 10 mg PO DAILY #30 tabs 03/10/23 tablet (Farxiga) fluconazole 150 mg tablet 150 mg PO Q3D 2 doses #2 tabs 03/16/23 Allergies Allergy/AdvReac Type Severity Reaction Status Date / Time Penicillins Allergy Intermediate I-ITCHING Verified 03/16/23 14:33 [facility] Disclaimer: The information contained in this section may have been updated after the patient was seen, as this information can be updated by other users. Medical History Angina at rest Asthma CAD (coronary artery disease) Encounter for pre-operative cardiovascular clearance GERD (gastroesophageal reflux disease) Heart disease HLD (hyperlipidemia) HTN (hypertension) Insomnia NSTEMI (non-ST elevated myocardial infarction) Surgical History H/O: hysterectomy History of back surgery History of bilateral knee replacement Hx of cholecystectomy Family History Other Hyperlipidemia Hypertension Social History Smoking Status: Never smoker second hand exposure: Yes alcohol intake: current substance use type: denies use current occupational status: disabled Travel in the last 8 weeks: None household members: spouse housing: house current occupational exposures/hazards: Yes caffeine: No ROS Obtained: Yes All systems reviewed & no additional complaints except as documented Physical Exam General General appearance: alert and in no apparent distress Head Head exam: atraumatic, normocephalic and normal inspection Eye Eye exam: Present normal appearance, PERRL and EOMI; Absent scleral icterus or nystagmus ENT ENT exam: Present normal exam, mucous membranes moist and normal external ear exam Neck Neck exam: Present normal inspection, full ROM and trachea midline Chest Chest inspection: Present normal inspection and symmetric chest wall rise; Absent tenderness Respiratory Respiratory exam: Present normal lung sounds bilaterally; Absent respiratory distress, wheezes or accessory muscle use Cardiovascular Cardiovascular exam: Present regular rate, normal rhythm and normal heart sounds Abdominal Exam Abdominal exam: Present soft; Absent distention, tenderness, guarding, rebound, rigidity, trauma, ascites or pulsatile mass Extremities Exam Extremities exam: Present tenderness (Patient has significant swelling and bruising to the left knee with tenderness palpation. Reduced range of motion.) and joint swelling; Absent normal inspection or full ROM Back Exam Back exam: Present normal inspection and full ROM; Absent tenderness Neurological Exam Neurological exam: Present alert, oriented X3 and normal gait; Absent motor sensory deficit Psychiatric Psychiatric exam: Present normal affect and normal mood Skin Skin exam: Present warm, dry and normal color Medical Decision Making Medical Records Medical records reviewed: Yes I reviewed the patient's medical records. Celio Inquiry Pt receiving controlled substance: No Vital Signs: 03/22/23 23:12 03/22/23 23:18 Temperature 98.5 F Temperature Source Oral Pulse Rate 92 H Pulse Rate [Right Radial] 89 Respiratory Rate 20 Blood Pressure 93/66 L Blood Pressure [Right Arm] 93/66 L Blood Pressure Mean [Right Arm] 75 02 Sat by Pulse Oximetry 95 94 L Oxygen Delivery Method Room Air Lab Data Lab results reviewed: Yes I reviewed the patient's lab results. Orders (Tests/Meds): ORDERS Category Date Time Status Femur XR left 2 views [XR femur LT 2V] Stat Exams 03/22/23 23:22 Completed Fibula/tibia XR left 2 views [XR tibia fibula LT 2V] Exams 03/22/23 23:22 Completed Stat Knee XR left 3 views [XR knee LT 3V] Stat Exams 03/22/23 23:22 Completed Medical Decision Narrative: In summary, Patient has a PMHx significant for CAD status post PCI on Effient, hyperlipidemia, asthma, diabetes, anxiety, depression who presents to the ED with complaints of fall. Patient notes that she was walking through her living room when she tripped over a [employer] cord. Patient notes that she fell forwards landing directly onto her left knee. Patient notes that she landed on hardwood miguel. Patient denies any head trauma, LOC. Left knee is swollen and bruised since the fall. Patient notes that she has been unable to bear any weight. Patient was afebrile, hemodynamically stable, in no respiratory distress, and nontoxic in appearance upon arrival and throughout the entire stay in the ED. Physical examination was unremarkable aside from significant swelling and bruising to the left knee with tenderness palpation, reduced range of motion, including lungs CTAB, normal cardiac auscultation, benign abdominal exam with no focal TTP, and no acute neurological deficit. The DDx includes, but is not limited to, acute osseous injury such as acute fracture, dislocation, hardware malfunction. All of these have been considered, however ruling out the most morbid conditions drove my clinical assessment and thus the following laboratory and/or radiographic evaluation was conducted to the appropriate extent based on history and physical examination. Patient notes that she took 12.5 of Lortab prior to arrival. X-ray/CT/US studies independently reviewed and interpreted by myself and notable for: - XR LLE: There was extensive anterior medial soft tissue swelling over the knee, but no fracture or dislocation. No injuries to the femur or tib/fib Interventions/Medications Received in the ED: - IM 30mg Toradol At this time, given unremarkable workup and/or symptomatic relief, as well as the fact that patient continued to remain well-appearing, it was felt that the patient was safe to be discharged home. The patient/parents were comfortable and in agreement with this plan. Patient instructed to follow up with Landscaping Crew Leader/PCP. The patient/parents were given strict return precautions prior to being discharged from the emergency department. All questions were answered. Kristina Mcneil MD Emergency Medicine Critical Care Critical Care Time Critical Care Time: No
[2023-03-23 00:01] VITALS: BP 142/90; PULSE 79; O2SAT 94
--- NOTE | 2023-03-23 00:04 | PC.NURSE ---
in room talking with patient at this time.
[2023-03-23] MEDS: KETOROLAC 30MG/ML VIAL 30 MG IM (00:15)
[2023-03-23 00:16] VITALS: BP 134/75; PULSE 74; RESP 16; TEMP 36.9; O2SAT 95
== END 2023-03-23 00:17 | disposition home or self-care (01) ==
PROVIDERS: Emergency Provider Emergency Medicine; PCP Nurse Practitioner Family
DX: S80.02XA Contusion of left knee, initial encounter (principal); E78.5 Hyperlipidemia, unspecified; J45.909 Unspecified asthma, uncomplicated; E11.9 Type 2 diabetes mellitus without complications; W01.0XXA Fall on same level from slipping, tripping and stumbling without subsequent striking against object, initial encounter; Z79.01 Long term (current) use of anticoagulants; Z79.82 Long term (current) use of aspirin
CPT/HCPCS: 73552; 73562; 73590; 96372; 99284

== ENCOUNTER 2023-04-21 16:17 | Outpatient (CLI) | payer BC, SELFPAY ==
--- NOTE | 2023-04-21 16:20 | XR_ITS ---
PROCEDURE INFORMATION: Exam: XR Lumbosacral Spine Exam date and time: 04/21/2023 4:22 PM Age: 58 years old Clinical indication: Injury or trauma; Fall; Blunt trauma (contusions or hematomas); Prior surgery; Surgery date: 6+ months; Surgery type: Fusion 2020; Additional info: Lumbago. Pain. Radiates down left leg TECHNIQUE: Imaging protocol: Radiologic exam of the lumbosacral spine. Views: 2 or 3 views. COMPARISON: 1. CT LUMBAR SPINE WO CON 02/24/2022 2:12 PM 2. DX XR THORACIC SPINE 3V 11/07/2019 1:22 PM 3. MR LUMBAR SPINE WO/W CON 02/24/2022 4:25 PM FINDINGS: Bones/joints: Anterior and posterior fusion hardware at L4-L5 is intact with no evidence of loosening. Hyperdense bone cement surrounds the pedicle screws at L4 and L5. Disc space narrowing and osteophytes are present at multiple levels. Thoracolumbar spine is mildly hyper kyphotic without significant compression deformities and is unchanged. No acute fractures, subluxations, or bone lesions. Sacroiliac joints are well preserved. Soft tissues: No soft tissue masses. IMPRESSION: 1. No acute findings in the lumbosacral spine. 2. Anterior and posterior fusion changes at L4-L5 are intact with no evidence of loosening. 3. Multilevel degenerative disc disease in the thoracolumbar spine is unchanged.
== END 2023-04-21 23:59 ==
LOC: RAD 16:18
PROVIDERS: PCP Nurse Practitioner Family; Visit Provider Nurse Practitioner Family
DX: M54.50 Low back pain, unspecified (principal)
CPT/HCPCS: 72100

== ENCOUNTER 2023-05-18 15:29 | Outpatient (CLI) | payer BC, SELFPAY ==
--- NOTE | 2023-05-18 15:31 | MR_ITS ---
FINAL REPORT CLINICAL HISTORY: Lower back pain with radiculopathy COMPARISON: 02/24/2022 FINDINGS: Multiplanar MR imaging of the lumbar spine was performed without contrast. On the sagittal T2-weighted images, disc degeneration is seen throughout. There is fusion at L4-5. There is mild retrolisthesis of L1 on L2 and mild anterolisthesis of L4 on L5. The vertebral alignment is otherwise normal. There is no evidence of fracture. No bony mass is identified. The conus is seen at approximately the L1 level and has an unremarkable appearance. T12-L1: Annular disc bulge with facet arthropathy and osteophytes. No significant central canal stenosis or neuroforaminal narrowing. L1-2: Annular disc bulge with facet arthropathy and osteophytes. There is moderate bilateral neuroforaminal narrowing. L2-3: Annular disc bulge with facet arthropathy. There is moderate bilateral neuroforaminal narrowing. L3-4: There is no significant canal stenosis or neural foraminal narrowing. L4-5: Postoperative changes of fusion. There is mild right and moderate left neuroforaminal narrowing. L5-S1: Annular disc bulge with facet arthropathy. There is mild right and moderate left neuroforaminal narrowing. IMPRESSION: Multilevel degenerative changes with mild to moderate neuroforaminal narrowing as above, stable from prior exam. Reviewed, Interpreted and Dictated by Lamonte Jeffery III, MD Transcribed by Ella Downing Authenticated and [facility]
== END 2023-05-18 23:59 ==
LOC: RAD 15:31
PROVIDERS: PCP Nurse Practitioner Family; Visit Provider Nurse Practitioner Family
DX: M54.16 Radiculopathy, lumbar region (principal); M54.50 Low back pain, unspecified; Z98.890 Other specified postprocedural states
CPT/HCPCS: 72148; 76376

== ENCOUNTER 2023-05-27 07:52 | Day surgery (SDC) | payer BC, SELFPAY ==
[2023-05-27] VITALS (16 sets, daily range): BP systolic 111–151; BP diastolic 49–87; PULSE 69–84; RESP 17–20; TEMP 36.8; O2SAT 96–100; BMI 43.1
--- NOTE | 2023-05-27 07:12 | IR_ITS ---
APPROVED REPORT Patient Location: Outpatient PROCEDURES Left heart catheterization Left ventriculogram Selective coronary angiogram INDICATION Known coronary artery disease, Accelerated angina pectoris, Abnormal Myoview Informed consent was obtained prior to the procedure. COMPLICATIONS NONE Estimated Blood Loss: LESS THAN 10 ML TECHNIQUE One percent lidocaine used to anesthetize the right anterior aspect of the wrist. The right radial artery was accessed via the Seldinger technique. A 6 Greek sheath was placed in the right radial artery. 2.5 mg of Verapamil, 800 mcg of nitroglycerin, 1mg Lidocaine and 5000 U Heparin were given through the arterial sheath. The papa catheter was also used to perform left heart catheterization, left ventriculogram and selective coronary angiogram. At the end of the procedure the sheath was removed good hemostasis was achieved using Traclet band, patient was transferred to the postop holding area in stable condition. ANGIOGRAPHIC RESULTS The left main artery Normal The left anterior descending artery Is an ostial 10% stenosis followed by a stent in the proximal to mid segment which is widely patent free of in-stent restenosis with excellent proximal distal transitioning. The remaining LAD has distal 10 to 20% stenoses The circumflex artery Nondominant and normal The right coronary artery Dominant with proximal smooth 10 to 20% stenosis mid vessel smooth 20 to 30% stenosis and distal smooth 30% stenosis The CANTRELL ventriculogram reveals Normal 65% The left ventricular end-diastolic pressure Severely elevated at 40 mmHg IMPRESSION Widely patent proximal to mid LAD stent as described above Nonocclusive coronary artery disease in remaining coronary arteries Normal ejection fraction Severe to critically elevated LVEDP consistent with diastolic dysfunction/HFpEF PLAN 1. Fluid restriction as well as reduction of carbonated drinks 2. Increased diuretics 3. Recommend sleep study 4. Weight loss physical therapy 5. Risk factors for coronary disease Electronically signed by : Alejandro Modi MD 05/27/2023 10:34:18
[2023-05-27 08:29] LABS: Basophils # 0.1 K/mm3 (0-0.2); Basophils % 1.3 % (0.1-2.0); Eosinophils # 0.3 K/mm3 (0.0-0.4); Eosinophils % 3.4 % (0.1-12.0); Hematocrit 44.4 % (37.0-47.0); Hemoglobin 13.7 g/dL (12.2-16.2); Lymphocytes # 3.2 K/mm3 (0.7-4.5); Lymphocytes % 37.7 % (10-50); Mean Corpuscular HGB Conc 30.8 g/dL (31.8-35.4); Mean Corpuscular Hemoglobin 27.6 pg (27.0-31.2); Mean Corpuscular Volume 89.4 fl (81-99); Monocytes # 0.6 K/mm3 (0.1-1.0); Monocytes % 6.8 % (1.7-9.3); Neutrophils # 4.4 K/mm3 (1.8-7.8); Neutrophils % 50.9 % (37.0-80.0); Platelet Count 391 K/mm3 (142-424); Red Blood Count 4.97 M/mm3 (4.20-5.40); Red Cell Distribution Width 15.3 % (11.5-17.5); White Blood Count 8.6 K/mm3 (4.8-10.8)
[2023-05-27 08:59] LABS: Anion Gap 13.5 mEq/L (5-15); Blood Urea Nitrogen 20 mg/dl (7-17); Calcium 10.3 mg/dl (8.4-10.2); Carbon Dioxide 29 mmol/L (22.0-30.0); Chloride 104 mmol/L (98-107); Creatinine Clearance Estimated 50 mL/min (50-200); Estimated Glomerular Filt Rate 51 ml/min (>60); GFR (African American) 62 ML/MIN (>60); Glucose 100 mg/dl (74-100); Potassium 4.5 mmoL/L (3.5-5.1); Sodium 142 mmol/L (136-145)
[2023-05-27] MEDS: 0.9 % SODIUM CHLORIDE 500 ML 25 ML IV (09:55)
[2023-05-27] MEDS: HEPARIN 1,000 UNITS/500ML NS (CATH LAB) 3000 UNIT IV (09:55)
[2023-05-27] MEDS: LIDOCAINE 1% 10ML MDV 20 ML IJ (09:55)
[2023-05-27] MEDS: diphenhydrAMINE 50MG/ML VIAL 50 MG IV (09:56)
[2023-05-27] MEDS: NITROGLYCERIN 800MCG/8ML SYR (CATH LAB) 800 MCG IA (09:56)
[2023-05-27] MEDS: VERAPAMIL 2.5MG/ML 2ML VIAL 2.5 MG IV (09:56)
[2023-05-27] MEDS: HEPARIN 1,000 UNITS/ML 10ML VIAL (CATH LAB) 10000 UNIT IV (09:56)
[2023-05-27] MEDS: MIDAZOLAM HCL 1MG/1ML 5ML VIAL 1 MG IV (10:25)
[2023-05-27] MEDS: FENTANYL 100MCG/2ML VIAL 50 MCG IV (10:25)
[2023-05-27] MEDS: IOPAMIDOL-370 (76%);100ML BOTTLE 50 ML IV (13:10)
== END 2023-05-27 13:16 | disposition home or self-care (01) ==
PROVIDERS: PCP Nurse Practitioner Family; Visit Provider Internal Medicine
DX: I11.0 Hypertensive heart disease with heart failure (principal); I50.32 Chronic diastolic (congestive) heart failure; E78.5 Hyperlipidemia, unspecified; K21.9 Gastro-esophageal reflux disease without esophagitis; R94.31 Abnormal electrocardiogram [ECG] [EKG]; I25.118 Atherosclerotic heart disease of native coronary artery with other forms of angina pectoris; Z79.899 Other long term (current) drug therapy; Z79.01 Long term (current) use of anticoagulants; I25.2 Old myocardial infarction
CPT/HCPCS: 80048; 85025; 93458; 99152; C1725; C1769; J1644; Q9967

== ENCOUNTER 2023-08-03 07:38 | Outpatient (CLI) | payer BC, SELFPAY ==
[2023-08-03 08:06] LABS: Basophils # 0.1 K/mm3 (0-0.2); Basophils % 1.2 % (0.1-2.0); Eosinophils # 0.2 K/mm3 (0.0-0.4); Eosinophils % 2.7 % (0.1-12.0); Hematocrit 43.4 % (37.0-47.0); Hemoglobin 13.7 g/dL (12.2-16.2); Lymphocytes # 2.7 K/mm3 (0.7-4.5); Lymphocytes % 30.1 % (10-50); Mean Corpuscular HGB Conc 31.5 g/dL (31.8-35.4); Mean Corpuscular Hemoglobin 27.5 pg (27.0-31.2); Mean Platelet Volume 7.7 fl (7.4-10.4); Monocytes # 0.6 K/mm3 (0.1-1.0); Monocytes % 6.4 % (1.7-9.3); Neutrophils # 5.3 K/mm3 (1.8-7.8); Neutrophils % 59.6 % (37.0-80.0); Platelet Count 351 K/mm3 (142-424); Red Blood Count 4.99 M/mm3 (4.20-5.40); Red Cell Distribution Width 16.2 % (11.5-17.5); White Blood Count 8.9 K/mm3 (4.8-10.8)
[2023-08-03 09:06] LABS: Chloride 102 mmol/L (98-107)
[2023-08-03 09:07] LABS: Sodium 140 mmol/L (136-145)
[2023-08-03 09:09] LABS: Alanine Aminotransferase 25 U/L (12-78); Alkaline Phosphatase 135 U/L (38-126); Aspartate Amino Transferase 38 U/L (14-36); Bilirubin,Total 0.4 mg/dl (0.2-1.3); Blood Urea Nitrogen 21 mg/dl (7-17); Carbon Dioxide 27 mmol/L (22.0-30.0); Estimated Glomerular Filt Rate 51 ml/min (>60); GFR (African American) 62 ML/MIN (>60)
[2023-08-03 09:10] LABS: Albumin Level 4.3 g/dl (3.5-5.0); Albumin/Globulin Ratio 1.6 (1.1-1.8); Chol/HDL Ratio 4.3 (1-3.5); Cholesterol 133 mg/dl (140-200); Globulin 2.7 g/dL (1.3-3.2); Glucose 108 mg/dl (74-100); HDL Cholesterol 31 mg/dl (40-60); Triglycerides 272 mg/dl (30-150); VLDL Cholesterol 54 mg/dL (0-40)
[2023-08-03 09:33] LABS: 25-OH Vitamin D, Total 55.4 ng/mL (30-100)
[2023-08-03 09:39] LABS: Thyroid Stimulating Hormone 1.59 uIU/mL (0.465-4.68)
[2023-08-03 09:43] LABS: Ferritin 22.4 ng/ml (11.1-264)
[2023-08-03 10:37] LABS: Hemoglobin A1C 5.7 % (4.0-6.0)
[2023-08-03 11:25] LABS: Vitamin B12 699 pg/mL (239-931)
[2023-08-04 13:11] LABS: C-Peptide 8.1 ng/mL (1.1-4.4); Insulin Level Total 17.5 uIU/mL (2.6-24.9)
== END 2023-08-03 23:59 | disposition home or self-care (01) ==
LOC: LAB 07:38
PROVIDERS: PCP Nurse Practitioner Family; Visit Provider Nurse Practitioner Family
DX: R53.83 Other fatigue (principal); I10 Essential (primary) hypertension; R00.0 Tachycardia, unspecified; D64.9 Anemia, unspecified; R73.09 Other abnormal glucose; E78.2 Mixed hyperlipidemia; M79.7 Fibromyalgia; R79.89 Other specified abnormal findings of blood chemistry; E66.01 Morbid (severe) obesity due to excess calories; Z68.41 Body mass index [BMI] 40.0-44.9, adult
CPT/HCPCS: 36415; 80050; 80053; 80061; 82306; 82533; 82607; 82728; 83036; 83525; 84443; 84681; 85025

== ENCOUNTER 2023-09-08 14:46 | Outpatient (CLI) | payer BC, SELFPAY | END 2023-09-08 23:59 | disposition home or self-care (01) | LOC: LAB.DROPOF 14:46 | PROVIDERS: PCP Nurse Practitioner Family; Visit Provider Nurse Practitioner Family | DX: J32.9 Chronic sinusitis, unspecified (principal) | CPT/HCPCS: 87635 ==

== ENCOUNTER 2023-09-15 11:56 | Outpatient (CLI) | payer BC, SELFPAY ==
[2023-09-15 12:14] VITALS: BP 147/93; PULSE 85; RESP 18; O2SAT 99
[2023-09-15] MEDS: DENOSUMAB 60 MG/ML SYRINGE SQ (12:15)
== END 2023-09-15 12:16 | disposition home or self-care (01) ==
LOC: INF 11:57
PROVIDERS: PCP Nurse Practitioner Family; Visit Provider Nurse Practitioner Family
DX: M81.0 Age-related osteoporosis without current pathological fracture (principal)
CPT/HCPCS: 96372; J0897

== ENCOUNTER 2023-10-03 16:33 | Emergency (ER) | payer BC, SELFPAY ==
[2023-10-03] VITALS (9 sets, daily range): BP systolic 114–157; BP diastolic 57–84; PULSE 75–88; RESP 10–17; TEMP 36.5–36.8; O2SAT 89–99; BMI 44.1
--- NOTE | 2023-10-03 16:34 | ECG_ITS ---
APPROVED REPORT Exam: Resting ECG HR:87 bpm ECG Measurements Heart Rate 87 AXES AK 179 P 59 QRSd 98 QRS 83 QT 343 T 63 QTc 387 Conclusion SINUS RHYTHM LOW QRS VOLTAGE IN PRECORDIAL LEADS [QRS DEFLECTION < 1.0 mV IN CHEST LEADS] NONSPECIFIC ST & T-WAVE ABNORMALITY BORDERLINE ECG Electronically signed by : DEMIAN BAUTISTA, 10/04/2023 00:25:50
--- NOTE | 2023-10-03 16:39 | ED_ITS ---
Discharge Plan Disposition Patient Disposition: Home, Self-Care Condition: Good Prescriptions Prescriptions: No Action albuterol sulfate [ProAir HFA] 90 mcg/actuation HFA aerosol inhaler 2 puff INHALATION Q4HP PRN (Reason: Shortness Of Breath) pantoprazole [Protonix] 40 mg tablet,delayed release (DR/EC) 40 mg PO BID ipratropium-albuterol 0.5 mg-3 mg(2.5 mg base)/3 mL solution for nebulization 3 ml inhalation NEEDED PRN (Reason: Breathing Problems) loratadine-pseudoephedrine [Loratadine-D] 10-240 mg tablet extended release 24 hr 1 tab PO DAILY PRN (Reason: allergy symptoms) 30 Days Qty: 30 0RF Prolia 60 mg/mL syringe 60 mg SQ [id number] Qty: 1 2RF carvedilol [Coreg] 3.125 mg tablet 3.125 mg PO BID Rx Instructions: must administer with a meal/food venlafaxine [Effexor XR] 75 mg capsule,extended release 24hr 75 mg PO DAILY 30 Days Qty: 30 2RF nystatin 100,000 unit/gram powder 1 applic topical QID Qty: 60 2RF ursodiol 500 mg tablet 500 mg PO TID hydrocodone-acetaminophen 7.5-325 mg tablet 1 tab PO BIDP PRN (Reason: Moderate Pain (Scale Score 5-6)) fluconazole 100 mg tablet 100 mg PO DAILY 10 Days Qty: 10 0RF prednisone 10 mg tablets,dose pack 10 mg PO DIRECTED 6 Days Qty: 21 0RF Rx Instructions: see taper instructions cefdinir 300 mg capsule 300 mg PO BID 10 Days Qty: 20 0RF multivit with min-folic acid [Women's Multivitamin Gummies] 2 tab PO DAILY montelukast 10 mg tablet 10 mg PO DAILY calcium phosphate-vitamin D3 [Citracal-D3 Gummies] 250 mg-12.5 mcg (500 unit) tablet,chewable 2 tab PO DAILY Linzess 145 mcg capsule 145 mcg PO DAILY Jardiance 10 mg tablet 10 mg PO DAILY irbesartan 75 mg tablet 37.5 mg PO DAILY Dupixent Pen 300 mg/2 mL pen injector 300 mg SQ Q2W ondansetron HCl 4 mg tablet 4 mg PO Q8H PRN (Reason: nausea and vomiting) Qty: 30 0RF promethazine 25 mg tablet 25 mg PO Q6H PRN (Reason: nausea and vomiting) Qty: 30 0RF budesonide-formoterol [Symbicort] 160-4.5 mcg/actuation HFA aerosol inhaler 2 inh INHALATION BID 30 Days Qty: 10.2 5RF ranolazine 500 mg tablet extended release 12 hr 500 mg PO BID Qty: 60 4RF dapagliflozin propanediol [Farxiga] 10 mg tablet 10 mg PO DAILY Qty: 90 1RF Dayvigo 5 mg tablet 5 mg PO HS 30 Days Qty: 30 2RF rosuvastatin 40 mg tablet 40 mg PO DAILY Qty: 90 1RF Spiriva Respimat 2.5 mcg/actuation mist 2 puff INHALATION DAILY Qty: 4 2RF cyclobenzaprine 10 mg tablet 10 mg PO DAILY PRN (Reason: muscle spasm) 30 Days Qty: 90 0RF pregabalin 200 mg capsule 200 mg PO BID 30 Days Qty: 60 0RF bumetanide 2 mg tablet See Rx Instructions .ROUTE .COMPLEX Qty: 180 3RF Dose Instruction: TAKE 1 TABLET BY MOUTH TWICE DAILY Rx Instructions: TAKE 1 TABLET BY MOUTH TWICE DAILY aspirin 81 mg tablet,delayed release (DR/EC) 81 mg PO DAILY prasugrel 10 mg tablet 10 mg PO DAILY glutathione 500 mg Capsule 250 mg PO DAILY milk thistle 500 mg Capsule 750 mg PO DAILY Rx Instructions: give with meal/snack Referrals Follow up/Referrals: Saima Dorman APRN [Primary Care Provider] - See instructions Activity Restrictions/Add. Instructions Additional Instructions/Restrictions: Follow-up with cardiology this week for reevaluation. Follow-up with your PCP as needed. Please keep your scheduled appointment with dentistry. Return to ER for any worsening signs or symptoms as needed. Clinical Impressions Clinical Impression: Chest pain Qualifiers: Chest pain type: unspecified Qualified Code(s): R07.9 - Chest pain, unspecified Print Language Print Language: [place] Discharge ED Provider: Paul Robledo General Adult HPI <JAKI Woodard - Last Filed: 10/03/23 20:17> General Chief complaint: Chest Pain Stated complaint: CP Time Seen by Provider: 10/03/23 16:34 History of Present Illness HPI narrative: Patient presents for evaluation of chest pain . Patient states that she has had intermittent substernal/epigastric chest pain since yesterday with right jaw pain. Patient did have an [facility] in [facility] and did have cardiac catheterization with stent placement by Dr. Modi. She denies shortness of breath fever chills hemoptysis hematochezia melena nausea vomiting diarrhea. Patient is status postcholecystectomy and hysterectomy but still has her appendix. Related Data Home Medications ?Medication ?Instructions ?Recorded ?Confirmed albuterol sulfate 90 mcg/actuation 2 puff inhalation Q4HP PRN 05/27/17 09/08/23 aerosol inhaler (ProAir HFA) Shortness Of Breath pantoprazole 40 mg tablet,delayed 40 mg PO BID Acid Reflux 11/14/18 09/08/23 release (Protonix) hydrocodone 7.5 mg-acetaminophen 1 tab PO BIDP PRN Moderate Pain 07/27/19 09/08/23 325 mg tablet (Scale Score 5-6) ipratropium 0.5 mg-albuterol 3 mg 3 ml inhalation NEEDED PRN 12/28/22 09/08/23 (2.5 mg base)/3 mL nebulization Breathing Problems soln aspirin 81 mg tablet,delayed 81 mg PO DAILY Blood Thinner 02/11/23 09/08/23 release glutathione 500 mg capsule 250 mg PO DAILY Supplement 02/11/23 09/08/23 milk thistle 500 mg capsule 750 mg PO DAILY Supplement 02/11/23 09/08/23 prasugrel 10 mg tablet 10 mg PO DAILY Blood Thinner 02/11/23 09/08/23 carvedilol 3.125 mg tablet (Coreg) 3.125 mg PO BID 04/21/23 09/08/23 calcium phosphate 250 mg-vit D3 2 tab PO DAILY 09/08/23 09/08/23 12.5 mcg (500 unit) chewable tablet (Citracal-D3 Gummies) dupilumab 300 mg/2 mL subcutaneous 300 mg SQ Q2W 09/08/23 09/08/23 pen injector (Dupixent) empagliflozin 10 mg tablet 10 mg PO DAILY 09/08/23 09/08/23 (Jardiance) irbesartan 75 mg tablet 37.5 mg PO DAILY 09/08/23 09/08/23 linaclotide 145 mcg capsule 145 mcg PO DAILY 09/08/23 09/08/23 (Linzess) montelukast 10 mg tablet 10 mg PO DAILY 09/08/23 09/08/23 multivit with min-folic acid 2 tab PO DAILY 09/08/23 09/08/23 [Women's Multivitamin Gummies] ursodiol 500 mg tablet 500 mg PO TID 09/08/23 09/08/23 Previous Rx's ?Medication ?Instructions ?Recorded ondansetron HCl 4 mg tablet 4 mg PO Q8H PRN nausea and 01/08/23 vomiting #30 tabs promethazine 25 mg tablet 25 mg PO Q6H PRN nausea and 01/08/23 vomiting #30 tabs loratadine-pseudoephedrine ER 10 1 tab PO DAILY PRN allergy 01/20/23 mg-240 mg tablet,extended symptoms 30 days #30 tabs [id number] (Loratadine-D) denosumab 60 mg/mL subcutaneous 60 mg SQ [id number] #1 mL 01/27/23 syringe (Prolia) budesonide-formoterol HFA 160 2 inh inhalation BID Breathing 05/29/23 mcg-4.5 mcg/actuation aerosol Problems 30 days #10.2 grams inhaler (Symbicort) ranolazine 500 mg tablet,extended 500 mg PO BID Heart Disease #60 06/29/23 release,12 hr tabs nystatin 100,000 unit/gram topical 1 applic topical QID #60 grams 08/02/23 powder venlafaxine 75 mg capsule,extended 75 mg PO DAILY 30 days #30 caps 08/02/23 release 24 hr (Effexor XR) dapagliflozin propanediol 10 mg 10 mg PO DAILY #90 tabs 08/31/23 tablet (Farxiga) lemborexant 5 mg tablet (Dayvigo) 5 mg PO HS 30 days #30 tabs 08/31/23 rosuvastatin 40 mg tablet 40 mg PO DAILY #90 tabs 09/01/23 cefdinir 300 mg capsule 300 mg PO BID 10 days #20 caps 09/08/23 fluconazole 100 mg tablet 100 mg PO DAILY 10 days #10 tabs 09/08/23 prednisone 10 mg tablets in a dose 10 mg PO DIRECTED 6 days #21 09/08/23 pack tabs tiotropium bromide 2.5 2 puff inhalation DAILY Breathing 09/22/23 mcg/actuation mist for inhalation Problems #4 grams (Spiriva Respimat) bumetanide 2 mg tablet See Rx Instructions .Route 09/27/23 .COMPLEX #180 tabs cyclobenzaprine 10 mg tablet 10 mg PO DAILY PRN muscle spasm 30 09/27/23 days #90 tabs pregabalin 200 mg capsule 200 mg PO BID Pain 30 days #60 caps 09/27/23 Allergies Allergy/AdvReac Type Severity Reaction Status Date / Time Penicillins Allergy Intermediate I-ITCHING Verified 09/08/23 11:22 PFSH <JAKI Woodard - Last Filed: 10/03/23 20:17> [facility] Disclaimer: The information contained in this section may have been updated after the patient was seen, as this information can be updated by other users. Medical History (Updated 10/03/23 @ 20:16 by JAKI Woodard) Gallstone Atypical angina (HFpEF) heart failure with preserved ejection fraction HLD (hyperlipidemia) HTN (hypertension) Heart disease Angina at rest NSTEMI (non-ST elevated myocardial infarction) GERD (gastroesophageal reflux disease) Acute cystitis Insomnia Asthma Encounter for pre-operative cardiovascular clearance CAD (coronary artery disease) Surgical History History of bilateral knee replacement History of back surgery H/O: hysterectomy Hx of cholecystectomy Family History Other Hyperlipidemia Hypertension Social History (Updated 09/15/23 @ 12:15 by Valery Langston RN) Smoking Status: Never smoker second hand exposure: Yes alcohol intake: current alcohol intake frequency: holidays/special occasions only substance use type: denies use current occupational status: disabled Travel in the last 8 weeks: None household members: spouse housing: house current occupational exposures/hazards: Yes caffeine: No <JAKI Woodard - Last Filed: 10/03/23 20:17> ROS Obtained: Yes Systems reviewed as appropriate & no additional complaints except as documented Physical Exam <JAKI Woodard - Last Filed: 10/03/23 20:17> General General appearance: alert and in no apparent distress Respiratory Respiratory exam: Present normal lung sounds bilaterally Cardiovascular Cardiovascular exam: Present regular rate and normal rhythm; Absent normal heart sounds Abdominal Exam Abdominal exam: Present soft, tenderness (To palpation slightly in the epigastrium but more underneath the sternum) and normal bowel sounds Extremities Exam Extremities exam: Present normal inspection and full ROM Back Exam Back exam: Present normal inspection and full ROM; Absent tenderness Neurological Exam Neurological exam: Present alert and oriented X3 Psychiatric Psychiatric exam: Present normal affect and normal mood Skin Skin exam: Present warm, dry and normal color Medical Decision Making <JAKI Woodard - Last Filed: 10/03/23 20:17> Medical Records Medical records reviewed: Yes I reviewed the patient's medical records. Celio Inquiry Pt receiving controlled substance: No Vital Signs: 10/03/23 16:33 10/03/23 16:42 10/03/23 17:01 Temperature 97.7 F Temperature Source Oral Pulse Rate 87 88 Pulse Rate [Left Radial] 87 Respiratory Rate 17 11 L 10 L Blood Pressure 114/68 145/84 H Blood Pressure [Right Arm] 157/83 H Blood Pressure Mean [Right Arm] 107 02 Sat by Pulse Oximetry 96 95 91 L Oxygen Delivery Method Room Air Room Air 10/03/23 17:30 10/03/23 18:01 10/03/23 18:31 Temperature Temperature Source Pulse Rate 77 76 78 Pulse Rate [Left Radial] Respiratory Rate 13 13 15 Blood Pressure 132/77 115/65 123/64 Blood Pressure [Right Arm] Blood Pressure Mean [Right Arm] 02 Sat by Pulse Oximetry 90 L 92 L 92 L Oxygen Delivery Method Room Air Room Air Room Air 10/03/23 19:01 10/03/23 20:01 Temperature Temperature Source Pulse Rate 77 75 Pulse Rate [Left Radial] Respiratory Rate 12 15 Blood Pressure 139/57 L 127/82 Blood Pressure [Right Arm] Blood Pressure Mean [Right Arm] 02 Sat by Pulse Oximetry 89 L 95 Oxygen Delivery Method Lab Data Lab results reviewed: Yes I reviewed the patient's lab results. Lab Results 10/03/23 16:40: WBC 9.2, RBC 5.21, Hgb 15.3, Hct 46.1, MCV 88.6, MCH 29.4, MCHC 33.2, RDW 15.7, Plt Count 382, MPV 8.0, Neut % (Auto) 64.3, Lymph % (Auto) 26.9, Osborne % (Auto) 6.1, Eos % (Auto) 1.7, Baso % (Auto) 0.9, Neut # (Auto) 5.9, Lymph # (Auto) 2.5, Osborne # (Auto) 0.6, Eos # (Auto) 0.2, Baso # (Auto) 0.1, Sodium 140, Potassium 3.3 L, Chloride 102, Carbon Dioxide 31 H, Anion Gap 10.3, BUN 18 H, Creatinine 1.20 H, Estimated Creat Clear 44, Estimated GFR 46 L, Est GFR ( Amer) 56 L, Glucose 136 H, Calcium 8.9, Magnesium 2.0, Total Bilirubin 0.5, AST 43 H, ALT 34, Alkaline Phosphatase 136 H, Troponin I < 0.01, NT-Pro-B Natriuret Pep 43.8, Total Protein 7.1, Albumin 4.3, Globulin 2.8, Albumin/Globulin Ratio 1.5, Lipase 246 10/03/23 19:40: Troponin I < 0.01 10/03/23 16:40 10/03/23 16:40 Orders (Tests/Meds): ED MEDICATIONS Discontinued Medications Generic Name Dose Route Start Last Admin Trade Name Freq PRN Reason Stop Dose Admin Acetaminophen 1,000 mg 10/03/23 16:40 10/03/23 16:51 Acetaminophen 1,000mg/100ml Vial IV 10/03/23 16:41 1,000 mg ONCE ONE Administration Belladonna Alkaloids 60 ml 10/03/23 16:40 10/03/23 16:51 Belladonna Alkaloids 60 Ml Ml PO 10/03/23 16:41 60 ml ONCE ONE Administration Lactated Ringer's 1,000 mls @ 999 mls/hr 10/03/23 16:40 10/03/23 16:51 Lactated Ringer's 1000 Ml Bag IV 10/03/23 17:40 999 mls/hr .Q1H1M ONE Administration Ketorolac Tromethamine 15 mg 10/03/23 16:40 10/03/23 16:51 Ketorolac 30mg/Ml Vial IV 10/03/23 16:41 15 mg ONCE ONE Administration ORDERS Category Date Time Status Chest XR 2 view (NOT portable) [XR chest 2V] Stat Exams 10/03/23 16:40 Completed BNP [NT Pro Brain Natriuretic Pep.] Stat Lab 10/03/23 16:40 Completed CBC w/Auto Diff [Complete Blood Count Auto Diff] Stat Lab 10/03/23 16:40 Completed CMP [Comprehensive Metabolic Panel] Stat Lab 10/03/23 16:40 Completed Lipase Stat Lab 10/03/23 16:40 Completed Magnesium Stat Lab 10/03/23 16:40 Completed Trop I [Troponin I] Stat Lab 10/03/23 16:40 Completed Troponin I Q3H Lab 10/03/23 19:40 Completed Troponin I Q3H Lab 10/03/23 22:45 Ordered HEART Score History (anamnesis): Slightly suspicious ECG: Normal Age: 45-65 years Risk factors: Atherosclerosis history Troponin: </= normal limit HEART Score: 3 Medical Decision Narrative: In summary patient is a 58-year-old female who presents to the emergency department for evaluation of chest pain. Patient is hemodynamically stable upon arrival, afebrile. Physical exam is remarkable for reproducible chest pain/epigastric pain and patient is actually chest pain-free currently, normal breath sounds benign abdominal exam normal sinus on the bedside monitor. Differential diagnosis includes ACS versus esophageal spasm versus gastritis versus GERD versus pancreatitis etc. Initial workup will be conducted with twelve-lead EKG hematologic labs plain film chest x-ray. Initial interventions include crystalloid bolus Toradol Tylenol. Initial workup reviewed by me shows that his hematologic labs are only significant for slightly low potassium however troponin is negative. The patient was placed in observation status at 1645. Medical necessity for observational status is serial troponins. The patient was provided serial reevaluations and continuous cardiac monitoring and pulse oximetry while awaiting results. 3-hour troponin is also undetectable and patient has had no chest pain while here. Given this patient is appropriate for discharge referral back to Dr. Modi for further evaluation. Additionally the patient to follow-up with PCP and dentistry as planned.. Total time in observation was 90 minutes. <Paul Robledo MD - Last Filed: 10/03/23 20:32> Vital Signs: 10/03/23 16:33 10/03/23 16:42 10/03/23 17:01 Temperature 97.7 F Temperature Source Oral Pulse Rate 87 88 Pulse Rate [Left Radial] 87 Respiratory Rate 17 11 L 10 L Blood Pressure 114/68 145/84 H Blood Pressure [Right Arm] 157/83 H Blood Pressure Mean [Right Arm] 107 02 Sat by Pulse Oximetry 96 95 91 L Oxygen Delivery Method Room Air Room Air 10/03/23 17:30 10/03/23 18:01 10/03/23 18:31 Temperature Temperature Source Pulse Rate 77 76 78 Pulse Rate [Left Radial] Respiratory Rate 13 13 15 Blood Pressure 132/77 115/65 123/64 Blood Pressure [Right Arm] Blood Pressure Mean [Right Arm] 02 Sat by Pulse Oximetry 90 L 92 L 92 L Oxygen Delivery Method Room Air Room Air Room Air 10/03/23 19:01 10/03/23 20:01 Temperature Temperature Source Pulse Rate 77 75 Pulse Rate [Left Radial] Respiratory Rate 12 15 Blood Pressure 139/57 L 127/82 Blood Pressure [Right Arm] Blood Pressure Mean [Right Arm] 02 Sat by Pulse Oximetry 89 L 95 Oxygen Delivery Method Lab Data Lab Results 10/03/23 16:40: WBC 9.2, RBC 5.21, Hgb 15.3, Hct 46.1, MCV 88.6, MCH 29.4, MCHC 33.2, RDW 15.7, Plt Count 382, MPV 8.0, Neut % (Auto) 64.3, Lymph % (Auto) 26.9, Osborne % (Auto) 6.1, Eos % (Auto) 1.7, Baso % (Auto) 0.9, Neut # (Auto) 5.9, Lymph # (Auto) 2.5, Osborne # (Auto) 0.6, Eos # (Auto) 0.2, Baso # (Auto) 0.1, Sodium 140, Potassium 3.3 L, Chloride 102, Carbon Dioxide 31 H, Anion Gap 10.3, BUN 18 H, Creatinine 1.20 H, Estimated Creat Clear 44, Estimated GFR 46 L, Est GFR ( Amer) 56 L, Glucose 136 H, Calcium 8.9, Magnesium 2.0, Total Bilirubin 0.5, AST 43 H, ALT 34, Alkaline Phosphatase 136 H, Troponin I < 0.01, NT-Pro-B Natriuret Pep 43.8, Total Protein 7.1, Albumin 4.3, Globulin 2.8, Albumin/Globulin Ratio 1.5, Lipase 246 10/03/23 19:40: Troponin I < 0.01 Orders (Tests/Meds): ED MEDICATIONS Discontinued Medications Generic Name Dose Route Start Last Admin Trade Name Freq PRN Reason Stop Dose Admin Acetaminophen 1,000 mg 10/03/23 16:40 10/03/23 16:51 Acetaminophen 1,000mg/100ml Vial IV 10/03/23 16:41 1,000 mg ONCE ONE Administration Belladonna Alkaloids 60 ml 10/03/23 16:40 10/03/23 16:51 Belladonna Alkaloids 60 Ml Ml PO 10/03/23 16:41 60 ml ONCE ONE Administration Lactated Ringer's 1,000 mls @ 999 mls/hr 10/03/23 16:40 10/03/23 16:51 Lactated Ringer's 1000 Ml Bag IV 10/03/23 17:40 999 mls/hr .Q1H1M ONE Administration Ketorolac Tromethamine 15 mg 10/03/23 16:40 10/03/23 16:51 Ketorolac 30mg/Ml Vial IV 10/03/23 16:41 15 mg ONCE ONE Administration ORDERS Category Date Time Status Chest XR 2 view (NOT portable) [XR chest 2V] Stat Exams 10/03/23 16:40 Completed BNP [NT Pro Brain Natriuretic Pep.] Stat Lab 10/03/23 16:40 Completed CBC w/Auto Diff [Complete Blood Count Auto Diff] Stat Lab 10/03/23 16:40 Completed CMP [Comprehensive Metabolic Panel] Stat Lab 10/03/23 16:40 Completed Lipase Stat Lab 10/03/23 16:40 Completed Magnesium Stat Lab 10/03/23 16:40 Completed Trop I [Troponin I] Stat Lab 10/03/23 16:40 Completed Troponin I Q3H Lab 10/03/23 19:40 Completed Troponin I Q3H Lab 10/03/23 22:45 Ordered ECG Data Tracing #1: Independently interpreted by me rate is 87, rhythm is regular, axis is borderline rightward deviated, no ST elevation in anatomical contiguous leads. QTc 387. HEART Score HEART Score: 3 Medical Decision Narrative: In summary patient is a 58-year-old female who presents to the emergency department for evaluation of chest pain. Patient is hemodynamically stable upon arrival, afebrile. Physical exam is remarkable for reproducible chest pain/epigastric pain and patient is actually chest pain-free currently, normal breath sounds benign abdominal exam normal sinus on the bedside monitor. Differential diagnosis includes ACS versus esophageal spasm versus gastritis versus GERD versus pancreatitis etc. Initial workup will be conducted with twelve-lead EKG hematologic labs plain film chest x-ray. Initial interventions include crystalloid bolus Toradol Tylenol. Initial workup reviewed by me shows that his hematologic labs are only significant for slightly low potassium however troponin is negative. The patient was placed in observation status at 1645. Medical necessity for observational status is serial troponins. The patient was provided serial reevaluations and continuous cardiac monitoring and pulse oximetry while awaiting results. 3-hour troponin is also undetectable and patient has had no chest pain while here. Given this patient is appropriate for discharge referral back to Dr. Modi for further evaluation. Additionally the patient to follow-up with PCP and dentistry as planned.. Total time in observation was 90 minutes. I was consulted by the [facility], and we discussed the complexity of the problems being addressed. I approved the treatment and management plan for this patient's care in the emergency department, thus performing a substantive portion of the medical decision making. Paul Robledo MD Critical Care <JAKI Woodard - Last Filed: 10/03/23 20:17> Critical Care Time Critical Care Time: No
--- NOTE | 2023-10-03 16:40 | XR_ITS ---
PROCEDURE INFORMATION: Exam: XR Chest Exam date and time: 10/03/2023 4:38 PM Age: 58 years old Clinical indication: Pain; Chest pressure; Additional info: Chest pain TECHNIQUE: Imaging protocol: Radiologic exam of the chest. Views: 2 views. COMPARISON: CT ANGIO CHEST PE PROTOCOL 12/22/2022 2:47 PM FINDINGS: Lungs: Low lung volumes with bronchovascular crowding. Chronic minimal bibasilar atelectasis and/or scarring. No consolidation. Pleural spaces: No pleural effusion. No pneumothorax. Heart/Mediastinum: No cardiomegaly. Bones/joints: No acute findings. IMPRESSION: No acute pulmonary findings.
[2023-10-03] MEDS: LACTATED RINGERS 1000ML 1,000 ML 999 ML IV (16:51)
[2023-10-03] MEDS: BELLADONNA ALKALOIDS 60 ML ML PO (16:51)
[2023-10-03] MEDS: KETOROLAC 30MG/ML VIAL 15 MG IV (16:51)
[2023-10-03] MEDS: ACETAMINOPHEN 1,000MG/100ML VIAL 1000 MG IV (16:51)
[2023-10-03 16:57] LABS: Albumin Level 4.3 g/dl (3.5-5.0); Chloride 102 mmol/L (98-107); Potassium 3.3 mmoL/L (3.5-5.1); Sodium 140 mmol/L (136-145)
[2023-10-03 16:59] LABS: Alanine Aminotransferase 34 U/L (12-78); Aspartate Amino Transferase 43 U/L (14-36); Blood Urea Nitrogen 18 mg/dl (7-17); Creatinine Clearance Estimated 44 mL/min (50-200); Estimated Glomerular Filt Rate 46 ml/min (>60); GFR (African American) 56 ML/MIN (>60)
[2023-10-03 17:00] LABS: Albumin/Globulin Ratio 1.5 (1.1-1.8); Alkaline Phosphatase 136 U/L (38-126); Anion Gap 10.3 mEq/L (5-15); Bilirubin,Total 0.5 mg/dl (0.2-1.3); Calcium 8.9 mg/dl (8.4-10.2); Carbon Dioxide 31 mmol/L (22.0-30.0); Globulin 2.8 g/dL (1.3-3.2); Glucose 136 mg/dl (74-100); Lipase 246 U/L (23-300); Total Protein,Serum 7.1 g/dl (6.3-8.2)
[2023-10-03 17:06] LABS: Basophils # 0.1 K/mm3 (0-0.2); Basophils % 0.9 % (0.1-2.0); Eosinophils # 0.2 K/mm3 (0.0-0.4); Eosinophils % 1.7 % (0.1-12.0); Hematocrit 46.1 % (37.0-47.0); Hemoglobin 15.3 g/dL (12.2-16.2); Lymphocytes # 2.5 K/mm3 (0.7-4.5); Lymphocytes % 26.9 % (10-50); Mean Corpuscular HGB Conc 33.2 g/dL (31.8-35.4); Mean Corpuscular Hemoglobin 29.4 pg (27.0-31.2); Mean Corpuscular Volume 88.6 fl (81-99); Monocytes # 0.6 K/mm3 (0.1-1.0); Monocytes % 6.1 % (1.7-9.3); Neutrophils # 5.9 K/mm3 (1.8-7.8); Neutrophils % 64.3 % (37.0-80.0); Platelet Count 382 K/mm3 (142-424); Red Blood Count 5.21 M/mm3 (4.20-5.40); Red Cell Distribution Width 15.7 % (11.5-17.5); White Blood Count 9.2 K/mm3 (4.8-10.8)
[2023-10-03 17:09] LABS: NT Pro Brain Natriuretic Pep. 43.8 pg/mL (0-125)
[2023-10-03 17:22] LABS: Troponin I < 0.01 ng/ml (0.00-0.034)
--- NOTE | 2023-10-03 17:58 | PC.NURSE ---
Rounded on pt. Warm blanket provided. Call light within reach.
[2023-10-03 20:10] LABS: Troponin I < 0.01 ng/ml (0.00-0.034)
== END 2023-10-03 20:33 | disposition home or self-care (01) ==
PROVIDERS: Physician Assistant; Emergency Provider Emergency Medicine; PCP Nurse Practitioner Family
DX: R07.9 Chest pain, unspecified (principal); R68.84 Jaw pain; I11.9 Hypertensive heart disease without heart failure; I25.119 Atherosclerotic heart disease of native coronary artery with unspecified angina pectoris; E78.5 Hyperlipidemia, unspecified; K21.9 Gastro-esophageal reflux disease without esophagitis; Z95.5 Presence of coronary angioplasty implant and graft
CPT/HCPCS: 71046; 80053; 83690; 83735; 83880; 84484; 85025; 93005; 96361; 96374; 96375; 99284; J0131; J1885; J7120

== ENCOUNTER 2023-11-10 13:24 | Outpatient (CLI) | payer BC, SELFPAY ==
--- NOTE | 2023-11-10 13:24 | CT_ITS ---
FINAL REPORT TECHNIQUE: Thin section axial CT images of the facial bones and sinuses were obtained without contrast. Coronal and sagittal reformatted images were also obtained.This study was performed with techniques to keep radiation doses as low as reasonably achievable, (ALARA). Individualized dose reduction techniques using automated exposure control or adjustment of mA and/or kV according to the patient's size were employed. CLINICAL HISTORY: chronic sinusitis COMPARISON: None FINDINGS: There is near-total opacification of the right maxillary sinus. There is obstruction of the right maxillary sinus ostium present. There may be bony erosion of the medial wall of the right maxillary sinus. No fluid levels are identified. There is right septal deviation. 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 No fracture or acute bony abnormality is identified. IMPRESSION: Near-total opacification of the right maxillary sinus as described above, suspect bony erosion in the medial wall of the right maxillary sinus. Reviewed, Interpreted and Dictated by Lamonte Jeffery III, MD Transcribed by Sowmya Hernández Authenticated and [facility]
== END 2023-11-10 23:59 | disposition home or self-care (01) ==
LOC: RAD 13:24
PROVIDERS: PCP Nurse Practitioner Family; Visit Provider Nurse Practitioner Family
DX: J32.9 Chronic sinusitis, unspecified (principal)
CPT/HCPCS: 70486

== ENCOUNTER 2024-01-25 10:28 | Outpatient (CLI) | payer BC, SELFPAY | END 2024-01-25 23:59 | disposition home or self-care (01) | LOC: LAB 01-31 10:29 | PROVIDERS: PCP Nurse Practitioner Family; Visit Provider Student in an Organized Health Care Education/Training Program | DX: J32.9 Chronic sinusitis, unspecified (principal) | CPT/HCPCS: 87070; 87077; 87186 ==

== ENCOUNTER 2024-02-04 14:22 | Outpatient (CLI) | payer BC, SELFPAY ==
[2024-02-04 16:42] LABS: Coronavirus 19, PCR Not Detected (NotDetected); Influenza A, PCR Not Detected (NotDetected); Influenza B, PCR Not Detected (NotDetected)
== END 2024-02-04 23:59 | disposition home or self-care (01) ==
LOC: LAB.DROPOF 02-06 09:03
PROVIDERS: PCP Nurse Practitioner Family; Visit Provider Nurse Practitioner Family
DX: R68.89 Other general symptoms and signs (principal)
CPT/HCPCS: 87636

== ENCOUNTER 2024-03-24 11:45 | Outpatient (CLI) | payer BC, SELFPAY ==
[2024-03-24 12:22] VITALS: BMI 42.7
[2024-03-24 12:45] LABS: Basophils % 0.6 % (0.1-2.0); Eosinophils # 0.1 K/mm3 (0.0-0.4); Eosinophils % 1.2 % (0.1-12.0); Hematocrit 43.2 % (37.0-47.0); Hemoglobin 13.9 g/dL (12.2-16.2); Lymphocytes # 2.3 K/mm3 (0.7-4.5); Lymphocytes % 32.1 % (10-50); Mean Corpuscular HGB Conc 32.2 g/dL (31.8-35.4); Mean Corpuscular Hemoglobin 28.7 pg (27.0-31.2); Mean Corpuscular Volume 89.3 fl (81-99); Monocytes # 0.9 K/mm3 (0.1-1.0); Monocytes % 11.8 % (1.7-9.3); Neutrophils # 3.9 K/mm3 (1.8-7.8); Neutrophils % 53.9 % (37.0-80.0); Platelet Count 287 K/mm3 (142-424); Red Blood Count 4.84 M/mm3 (4.20-5.40); Red Cell Distribution Width 13.3 % (11.5-17.5); White Blood Count 7.3 K/mm3 (4.8-10.8)
[2024-03-24 12:51] LABS: Chloride 98 mmol/L (98-107); Sodium 138 mmol/L (136-145)
[2024-03-24 12:52] LABS: Potassium 3.6 mmoL/L (3.5-5.1)
[2024-03-24 12:54] LABS: Blood Urea Nitrogen 22 mg/dl (7-17); Creatinine Clearance Estimated 52 mL/min (50-200); Estimated Glomerular Filt Rate 57 ml/min (>60); GFR (African American) 68 ML/MIN (>60)
[2024-03-24 12:55] LABS: Anion Gap 12.6 mEq/L (5-15); Calcium 9.3 mg/dl (8.4-10.2); Carbon Dioxide 31 mmol/L (22.0-30.0); Glucose 115 mg/dl (74-100)
== END 2024-03-24 23:59 | disposition home or self-care (01) ==
LOC: PREOP 11:46
PROVIDERS: PCP Nurse Practitioner Family; Visit Provider Student in an Organized Health Care Education/Training Program
DX: Z01.812 Encounter for preprocedural laboratory examination (principal)
CPT/HCPCS: 80048; 85025

== ENCOUNTER 2024-03-28 05:59 | Day surgery (SDC) | payer BC, SELFPAY ==
[2024-03-28] VITALS (12 sets, daily range): BP systolic 100–145; BP diastolic 50–88; PULSE 64–77; RESP 14–18; TEMP 36.1–36.6; O2SAT 92–97; BMI 42.7
--- NOTE | 2024-03-28 07:15 | EXP.ANES.CKL ---
[facility] Disclaimer: The information contained in this section may have been updated after the patient was seen, as this information can be updated by other users. Medical History Encounter for pre-operative cardiovascular clearance Sinus infection Allergies Ear congestion Sinus congestion Gallstone Atypical angina (HFpEF) heart failure with preserved ejection fraction HLD (hyperlipidemia) HTN (hypertension) Heart disease Angina at rest NSTEMI (non-ST elevated myocardial infarction) GERD (gastroesophageal reflux disease) Acute cystitis Insomnia Asthma CAD (coronary artery disease) Surgical History History of cardiac cath History of bilateral knee replacement History of back surgery H/O: hysterectomy Hx of cholecystectomy Family History Other Hyperlipidemia Hypertension Social History Smoking Status: Never smoker second hand exposure: Yes alcohol intake: never substance use type: denies use current occupational status: disabled Travel in the last 8 weeks: None household members: spouse housing: house current occupational exposures/hazards: Yes caffeine: No Have you lived/traveled outside US in past 30 days?: No Contact w/someone who lives/traveled outside US past 30 days?: No Exposure to someone with infectious disease in past 14 days?: No Do you have a fever (greater than 100.4 F or 38 C)?: No Have you tested positive for COVID-19: No Exposed to someone with COVID-19 in past 14 days?: No Do you have a sore throat?: No Do you have a cough?: No Do you have any weakness?: No Do you have any diarrhea?: No Are you experiencing any unusual bleeding?: No Do you have any muscle aches/pain?: No Do you have any abdominal pain?: No Are you experiencing loss of taste or smell?: No [facility] Anesthesia Checklist Patient Identification Patient Identification: Arm Band, Family and Verbal (Name & ) Structural Data Admitted From: Home Planned Operative Procedure/s: RT. Maxillary Antrostomy Consent for Planned Operative Procedure(s) Verified: Yes Verified Documents: Surgical Consent and History and Physical NPO Status Verified Time NPO: 22:30 Chart Verification Results Verified: CBC, BMP, ECG and Chest Xray Additional verifications Patient : No Anesthesia Reactions: No Hx Blood Transfusions: No Blood Transfusion Reaction: No Cardiovascular Assessment Heart Sounds: S1 & S2 Pulse Rhythm: Irregular Peripheral Edema: No Airway Assessment Mallampati Score:: Class II C-Spine Mobility Assessed: Yes (FROM demonstrated) TMJ Mobility Assessed: Yes Dentition: Good Dentition (Nothing loose per pt.) Neurological Assessment Level of Consciousness: Awake, Alert, Appropriate and Follows Commands Hx Seizures: No Numbness or tingling in extremities: No Anesthesia Plan Anesthesia Risk discussed: Yes Anesthesia Plan: Verified ASA Class: III Anesthesia Type: General
[2024-03-28] MEDS: CLINDAMYCIN PHOSPHATE/D5W 900 MG/50 ML PIGGYBACK 50 MG (07:42)
[2024-03-28] MEDS: OXYMETAZOLINE NASAL SPRAY 0.05% 15ML 15 ML NS (08:05)
[2024-03-28] MEDS: 0.9 % SODIUM CHLORIDE 500 ML 10 ML IV (08:05)
--- NOTE | 2024-03-28 08:23 | EXP.OP.NOTE ---
Date of procedure: 03/28/24 Pre-op Diagnosis:: right maxillary sinusitis Post-op Diagnosis:: same Procedure performed:: right maxillary antrostomy Surgeon:: Franklin Vilchis MD PROFESSIONAL BENEFITS SALES CONSULTANT:: Alphonso Luque Anesthesia: EUSEBIO Estimated blood loss (mL): 10 Operative findings:: consistent with AFS in right maxillary sinus Operative note:: The patient was brought to the OR, laid in supine position, general anesthesia was induced. Patient was prepped and draped in usual fashion. Using the 0 degree endoscope I identified the maxillary sinus os on the right. A ball-tipped probe was used to reflect the uncinate forward. The uncinate was taken down with a backbiter and microdebrider to perform the right maxillary antrostomy. Patient had thick debris in her right maxillary sinus consistent with allergic fungal sinusitis. This was thoroughly suctioned and irrigated out of the sinus. Hemostasis was achieved with Afrin-soaked pledgets. Afrin-soaked nova pack was then placed in the right middle meatus. Her nose and mouth were suctioned out. She was then turned back over to anesthesia to be awoken and extubated. Condition: stable Disposition: PACU Complications:: none
--- NOTE | 2024-03-28 08:35 | P.PNANES_ITS ---
[facility] Anesthesia Record Part I Anesthesia Record I Intake, IV Amount: 800 Hydration: Adequate Estimated blood loss (mL): 5 Urine output (mL): 0 Blood Products used (#): none Blood Pressure: 100/50 SaO2: 95 Pulse Rate: 77 Airway Patency: Patent Respiratory Rate: 16 Temperature: 97 F Patient is:: Drowsy, Nasal O2 and Stable Stable to PACU at:: 08:30
[2024-03-28] MEDS: MORPHINE 2MG/ML SYRINGE 2 MG IV ×2 (08:55→09:06)
--- NOTE | 2024-03-28 13:02 | EXP.ANES.II ---
[facility] Anesthesia Record Part II Anesthesia Record Part II Discharge Time: 09:15 Destination: Surgical Day Care (OP Surgery) PACU nurse assessment reviewed?: Yes Patient Condition:: Good Anesthesia Complications:: None Swallowing reflex intact?: Yes Airway Patency: Patent Cyanosis?: No Blood Pressure: 137/75 SaO2: 97 Respiratory Rate: 14 Pulse Rate: 65 Temperature: 97.8 F Mental Status: Alert & Oriented Pain level:: 2 Nausea and/or vomitting:: None Intake, IV Amount: 0 Hydration: Adequate
== END 2024-03-28 09:45 | disposition home or self-care (01) ==
PROVIDERS: PCP Nurse Practitioner Family; Visit Provider Student in an Organized Health Care Education/Training Program
PROC: (CPT 31020; principal; 2024-03-28 07:30)
DX: J32.0 Chronic maxillary sinusitis (principal)
CPT/HCPCS: 31020; 96374; J3490; J0736; J1100; J2250; J2270; J2405; J3010

== ENCOUNTER 2024-05-24 10:50 | Outpatient (CLI) | payer BC, SELFPAY ==
--- NOTE | 2024-05-24 10:50 | MM_ITS ---
PROCEDURE INFORMATION: Exam: US Right Breast, Complete MG Bilateral Screening 3D Mammography Exam date and time: 05/24/2024 11:23 AM Age: 59 years old Clinical indication: Screening. Six-month follow-up mammography was advised for probably benign mass in the right breast 2 o'clock 1 cm from the nipple on 02/04/2023. TECHNIQUE: Imaging protocol: Complete ultrasound of all four quadrants of the right breast and the retroareolar regions, including ultrasound of the axilla when performed. Bilateral Screening tomosynthesis and 2D mammography including computer-aided detection (CAD) when performed. COMPARISON: MG MM DIG SCREENING MAMM BI W/CAD 01/18/2023 8:29 AM US BREAST RT COMPLETE 02/04/2023 10:01 AM FINDINGS: MAMMOGRAPHY: Breast composition: The breasts are heterogeneously dense, which may obscure small masses. Mass: No suspicious mass. Architectural distortion: None. Calcifications: No suspicious calcifications. Asymmetric density: None. Skin thickening: None. Axillary adenopathy: None. ULTRASOUND: Right sonography, all 4 quadrants, retroareolar and the axilla. At 12 o'clock 4 cm from the nipple, two oval hypoechoic avascular masses measuring 0.4 x 0.4 x 0.4 cm and 0.4 x 0.3 x 0.5 cm, new or newly demonstrated. At 1 o'clock 6 cm from the nipple, probable ductal ectasia with low-level avascular debris, measured up to 0.9 cm. At 2 o'clock 3 cm from the nipple, oval hypoechoic avascular mass which may be an ectatic ductal complicated cyst, measuring 0.7 x 0.7 x 0.2 cm, new or newly demonstrated. At 9 o'clock 4 cm from the nipple, oval hypoechoic avascular mass measuring 0.4 x 0.5 x 0.3 cm, new or newly demonstrated. At 10 o'clock 10 cm from the nipple, oval hypoechoic avascular mass measuring 0.6 x 0.4 x 0.5 cm, new or newly demonstrated. At 10 o'clock 5 cm from the nipple, slightly lobulated hypoechoic avascular mass, measuring 1.2 x 0.6 x 0.9 cm, new or newly demonstrated. At 10 o'clock 7 cm from the nipple, anechoic avascular cyst measuring 0.9 x 0.7 x 0.3 cm. Sonographically unremarkable axillary lymph node. The previously questioned (02/04/2023) probably benign finding, thought to reflect fat necrosis, at 2 o'clock 1 cm from the nipple is demonstrated, but this site was not specifically annotated. IMPRESSION: See comment Patient will be recalled for additional right sonography with particular attention to 2 o'clock 1 cm from the nipple for follow-up related to 02/04/2023 sonography. Otherwise, multiple probably benign right sonographic findings, suggest six-month follow-up right sonography for these, unless otherwise clinically indicated. No mammographic evidence of malignancy. Annual screening mammogram recommended unless otherwise clinically indicated. ASSESSMENT: BI-RADS Category 0: Incomplete: Need Additional Imaging Evaluation.
== END 2024-05-24 23:59 | disposition home or self-care (01) ==
LOC: RAD 10:50
PROVIDERS: PCP Nurse Practitioner Family; Visit Provider Nurse Practitioner Family
DX: R92.8 Other abnormal and inconclusive findings on diagnostic imaging of breast (principal); Z12.31 Encounter for screening mammogram for malignant neoplasm of breast
CPT/HCPCS: 76641; 77063; 77067

== ENCOUNTER 2024-06-05 15:05 | Outpatient (CLI) | payer BC, SELFPAY ==
[2024-06-05 16:42] LABS: Basophils % 0.5 % (0.1-2.0); Eosinophils # 0.1 K/mm3 (0.0-0.4); Eosinophils % 1.4 % (0.1-12.0); Hematocrit 49.3 % (37.0-47.0); Hemoglobin 15.9 g/dL (12.2-16.2); Lymphocytes # 2.7 K/mm3 (0.7-4.5); Lymphocytes % 31.8 % (10-50); Mean Corpuscular HGB Conc 32.3 g/dL (31.8-35.4); Mean Corpuscular Hemoglobin 28.7 pg (27.0-31.2); Mean Platelet Volume 10.1 fl (7.4-10.4); Monocytes # 0.8 K/mm3 (0.1-1.0); Monocytes % 9.1 % (1.7-9.3); Neutrophils # 4.8 K/mm3 (1.8-7.8); Neutrophils % 56.8 % (37.0-80.0); Platelet Count 358 K/mm3 (142-424); Red Blood Count 5.54 M/mm3 (4.20-5.40); Red Cell Distribution Width 13.7 % (11.5-17.5); White Blood Count 8.5 K/mm3 (4.8-10.8)
[2024-06-05 17:38] LABS: Alanine Aminotransferase 24 U/L (12-78); Albumin Level 4.5 g/dl (3.5-5.0); Albumin/Globulin Ratio 1.7 (1.1-1.8); Alkaline Phosphatase 141 U/L (38-126); Anion Gap 16.1 mEq/L (5-15); Aspartate Amino Transferase 33 U/L (14-36); Bilirubin,Total 0.5 mg/dl (0.2-1.3); Blood Urea Nitrogen 18 mg/dl (7-17); Calcium 9.8 mg/dl (8.4-10.2); Carbon Dioxide 26 mmol/L (22.0-30.0); Chloride 99 mmol/L (98-107); Cholesterol 115 mg/dl (140-200); Estimated Glomerular Filt Rate 57 ml/min (>60); GFR (African American) 68 ML/MIN (>60); Globulin 2.7 g/dL (1.3-3.2); Glucose 81 mg/dl (74-100); HDL Cholesterol 38 mg/dl (40-60); Magnesium 2.1 mg/dl (1.6-2.3); Potassium 4.1 mmoL/L (3.5-5.1); Sodium 137 mmol/L (136-145); Total Protein,Serum 7.2 g/dl (6.3-8.2); Triglycerides 159 mg/dl (30-150); VLDL Cholesterol 32 mg/dL (0-40)
[2024-06-05 17:49] LABS: Direct LDL Cholesterol 38.94 mg/dL (100-129)
[2024-06-05 17:53] LABS: T4 (Thyroxine) 10.2 ug/dl (5.53-11.0)
[2024-06-05 17:57] LABS: 25-OH Vitamin D, Total 72.5 ng/mL (30-100)
[2024-06-05 18:07] LABS: Thyroid Stimulating Hormone 2.52 uIU/mL (0.465-4.68)
[2024-06-05 18:26] LABS: Vitamin B12 588 pg/mL (239-931)
[2024-06-05 19:54] LABS: Ferritin 13.8 ng/ml (11.1-264)
[2024-06-05 21:30] LABS: Hemoglobin A1C 5.6 % (4.0-6.0)
--- OUTSIDE RECORDS SUMMARY | 2024-06-08 21:36 | XMS_ITS | Clinical Summary ---
Author Organization [facility] Address [address] [place] [address] Phone Care Team Providers Care Chemical Pathologist Name Role Phone DE DIOSYESSICA Unavailable [phone] David Toussaint MD Unavailable [phone] Reason for Visit and Chief Complaint The Chief Complaint is: Right knee pain Problems Includes: Problems addressed during this encounter and other active Problems Current Visit Onset Date Resolved Date Provider Kelli pace Status Joint Pain in the Right Knee 09/20/2018 José Mckeon MD Active Last Documented On 9 2:16PM ; [facility] Plan of Treatment We discussed options with the patient. she is not interested in considering surgery at this time. We discussed injections of cortisone. she would like to consider that at this time. There were no further questions. The risks of the procedure were explained and verbally acknowledged by the patient and a verbal consent was obtained. The knee was prepped in a sterile manner. Using a 3 cc syringe with a mixture containing 2 cc of 1% Lidocaine and 40mg Depo-Medrol. The knee was then put in flexed position and the intercondylar notch was palpated. The needle was gently introduced toward the intercondylar notch to enter the synovial cavity. Upon entering the synovial cavity, the medication was injected. The needle was carefully withdrawn and a Band-Aid was applied. There were no complications, and the patient tolerated the procedure well. we will see how she gets on with this. She also told us that she was beginning to have pain in the left knee and we could discuss this further at her next visit. Return in 3 months if needed. There were no further questions. - Last Documented On 09/22/2018 11:51AM ; [facility] Instructions to patient Instructions for patient to see pcp for weight and bp Last Documented On 9 2:30PM ; [facility], [facility] Lose weight Last Documented On 9 2:30PM ; [facility], [facility] Assessments Includes: Assessments from this encounter No Assessments Recorded Instructions Includes: Instructions from this encounter Instructions to patient Instructions for patient to see pcp for weight and bp Last Documented On 9 2:30PM ; [facility], [facility] Lose weight Last Documented On 9 2:30PM ; [facility], [facility] Medical Equipment - Implanted Devices Includes: Current Devices No Medical Equipment Recorded Medications Includes: Medications discussed during this encounter and other current Medications Current Medications (continue as prescribed) Cartia XT 240MG Oral Capsule Extended Release 24 Hour 09/19/2018 Provider: YESSICA DE DIOS Diagnosis: Last Documented On 9 2:17PM By Halima Levine ; [facility], [facility] Zolpidem Tartrate 10MG Oral Tablet 09/19/2018 Provid er: YESSICA DE DIOS Diagnosis: Last Documented On 9 2:16PM By Halima Levine ; [facility], [facility] Symbicort 160-4.5MCG/ACT Inhalation Aerosol 09/16/2018 Provider: Diagnosis: Last Documented On 9 2:17PM By Halima Levine ; [facility], [facility] Losartan Potassium-HCTZ 100-25MG Oral Tablet 9 Provider: Diagnosis: Last Documented On 9 2:17PM By Halima Levine ; [facility], [facility] Dupixent 300MG/2ML Subcutaneous Solution Prefilled Syr karlo 09/12/2018 Provider: Diagnosis: Last Documented On 9 2:17PM By Halima Levine ; [facility], [facility] Lyrica 100MG Oral Capsule 09/07/2018 Provider: Galen Andrade APRN Diagnosis: Last Documented On 9 2:17PM By Halima Levine ; [facility], [facility] Furosemide 20MG Oral Tablet 09/07/2018 Provider: Marti Andrade APRN Diagnosis: Last Documented On 9 2:17PM By Halima Levine ; [facility], [facility] Fluconazole 150MG Oral Tablet 09/07/2018 Provider: Marti Andrade APRN Diagnosis: Last Documented On 9 2:17PM By Halima Levine ; [facility], [facility] Uloric 40MG Oral Tablet 08/25/2018 Provider: JOHN DE DIOS Diagnosis: Last Documented On 9 2:17PM By Halima Levine ; [facility], [facility] DULoxetine HCl 60MG Oral Cap heaven Delayed Release Particles 08/23/2018 Provider: YESSICA DE DIOS Diagnosis: Last Documented On 9 2:17PM By Halima Levine ; [facility], [facility] Ipratropium-Albuterol 0.5-2.5 (3)MG/3ML Inhalati on Solution 08/23/2018 Provider: Diagnosis: Last Documented On 9 2:18PM By Halima Levine ; [facility], [facility] Past Medications on file Mupirocin 2% External Ointment 11/07/2018 - 11/12/2018 Provider: José li MD Diagnosis: Apply to nostrils three time s a day starting 5 days prior to surgery Last Documented On 9 10:50AM By Shaneka Medina ; [facility] Medications Administered Includes: Administered Medications from this encounter No Administered Medications Recorded Vital Signs Includes: Vital Signs from this encounter Vital Name 09/20/2018 02:24P Height (in) 65 Weight (lb) 238 Body Mass Index (kg/m2) 39.6 Body Surface Area (m2) 2.1 Note: hav Last Documented: On 09/20/2018 2:30PM ; [facility], [facility] Results Includes: Results discussed during this encounter No Results Recorded For Specified Dates History of Present Illness Includes: History of Present Illness from this encounter LYN Loya is a 53 year old female. - Medication list reviewed with patient. - Stabbing pain - Pain is throbbing - Pain is dull, aching Please rate pain on scale of 1 - 10: 8 No Previous Treatment Mary is here for a new problem with her right knee. She has been having problems for about 2 months. She said the problems began with twisting. She said that it hurts when she ambulates. She has difficulty with getting out of a chair and stairs. She can sleep all right. She has treated this with some ice. She got some Lortab from her family physician. She has not had any other treatment for the knee. Social History Description Last Updated Alcohol use 09/20/2018 Last Documented On 9 11:51AM ; [facility], [facility] No caffeine use 09/20/2018 Last Documented On 9 11:51AM ; [facility], [facility] No recent change in diet 09/20/2018 Last Documented On 9 11:51AM ; [facility], [facility] Not a current smoker 09/20/2018 Last Documented On 9 11:51AM ; [facility], [facility] Not exercising regularly 09/20/2018 Last Documented On 9 11:51AM ; [facility], [facility] Not using drugs 09/20/2018 Last Documented On 9 11:51AM ; [facility], [facility] No tobacco use 09/20/2018 Last Documented On 9 11:51AM ; [facility], [facility] Smoking status : Never smoker 09/20/2018 Last Documented On 9 11:51AM ; [facility], [facility] Procedures and Surgical History Includes: Procedures from this encounter Procedures Code Diagnosis Performing Provider Service L ocation Service Date Clinical summary provided to patient Last Documented On 9 2:23PM ; [facility], [facility] history of an X-ray was performed 27436 Last Documented On 9 2:29PM ; [facility], [facility] history of an MRI was performed [id number] Last Documented On 9 2:29PM ; [facility], [facility] Surgical History Last Updated History of hysterectomy 09/20/2018 Last Documented On 9 11:51AM ; [facility], [facility] Medical History Includes: Medical History addressed during this encounter Description Last Updated Arthritic joint problems 09/20/2018 Last Documented On 9 11:51AM ; [facility], [facility] Gallbladder disease 09/20/2018 Last Documented On 9 11:51AM ; [facility], [facility] History of asthma 09/20/2018 Last Documented On 9 11:51AM ; [facility], [facility] History of depression 09/20/2018 Last Documented On 9 11:51AM ; [facility] Intermittent hypertension 09/20/2018 Last Documented On 9 11:51AM ; [facility] Family History Includes: Family History addressed during this encounter Description Last Updated Family history of heart disease 09/21/19 19 Last Documented On 9 11:51AM ; [facility] Family history of hypertension 9 Last Documented On 9 11:51AM ; [facility] Review of Systems Includes: Review of Systems from this encounter Systemic: Not feeling tired (fatigue) and no recent weight loss. Recent weight gain. No edema. Head: No headache, no sinus pain, and no sinus pain. Eyes: No vision problems, no vision problems, and no glaucomatous visual field defect. Otolaryngeal: No hearing loss, no hearing loss, and no tinnitus. No nasal symptoms. Cardiovascular: No chest pain or discomfort, no chest pain or discomfort, and no palpitations. Pulmonary: No daytime asthma symptoms, no cough, and no chronic cough. No wheezing. Gastrointestinal: No heartburn, no heartburn, and no abdominal pain. Endocrine: Hot flashes and muscle weakness. Hematologic: No easy bleeding. A tendency for easy bruising. Musculoskeletal: Lower back pain. No soft tissue swelling. Pain localized to one or more joints. Neurological: No dizziness and no convulsions. Numbness. Psychological: No anxiety and no emotional lability. Depression and insomnia. Not crying for no reason. Skin: No dry skin, no rash, and no ulcers. Allergic and Immunologic: Complaint of seasonal allergic reaction. Mental Status Includes: Mental Status from this encounter Description No anxiety Functional Status Includes: Functional Status from this encounter No Functional Status Recorded Physical Exam Includes: Physical Exam from this encounter Allergies Includes: Active Allergies Substance Type Reaction Onset Date Resolved Date Statu s Penicillin G Benzathine Allergy 09/20/2018 Active Last Documented On 9 10:40AM ; [facility] Encounters Encounter Provider Location Date Check-In Time Check-Out Time Diagnosis Physician Specified José Mckeon [facility] 09/21/19 2:08PM 3:28PM Insurance Includes: Active Insurance Policies Plan Name Member ID Group # Subscriber Relationship Effect bridgett Dates 1 - [facility] [id number] Moraima Loya Self Clinical Notes Includes: Clinical Notes from this encounter No Clinical Notes Recorded
--- OUTSIDE RECORDS SUMMARY | 2024-06-08 21:36 | XMS_ITS | Clinical Summary ---
Author Organization [facility] , [facility] Address [address] [place] [address] Phone Care Team Providers Care Lithographing Machine Operator Name Role Phone LANRE YESSICA Unavailable [phone] David Toussaint MD Unavailable [phone] Reason for Visit and Chief Complaint [Patient Encounter] Problems Includes: Problems addressed during this encounter and other active Problems All Visits Onset Date Resolved Date Provider Condition S tatus Joint Pain in the Right Knee 09/20/2018 José Mckeon MD Active Last Documented On 9 2:16PM ; [facility], [facility] Plan of Treatment No Plan of Treatment Recorded Assessments Includes: Assessments from this encounter No Assessments Recorded Medical Equipment - Implanted Devices Includes: Current Devices No Medical Equipment Recorded Medications Includes: Medications discussed during this encounter and other current Medications Current Medications (continue as prescribed) Cartia XT 240MG Oral Capsule Extended Release 24 Hour 09/19/2018 Provider: YESSICA DE DIOS Diagnosis: Last Documented On 9 2:17PM By Halima Levine ; [facility], [facility] Zolpidem Tartrate 10MG Oral Tablet 09/19/2018 Provid er: YESSICA DE DIOS Diagnosis: Last Documented On 9 2:16PM By Halima Levine ; [facility], [facility] Symbicort 160-4.5MCG/ACT Inhalation Aerosol 09/16/2018 Provider: Diagnosis: Last Documented On 9 2:17PM By Halima Levine ; [facility], [facility] Losartan Potassium-HCTZ 100-25MG Oral Tablet 9 Provider: Diagnosis: Last Documented On 9 2:17PM By Halima Levine ; [facility], [facility] Dupixent 300MG/2ML Subcutaneous Solution Prefilled Syr karlo 09/12/2018 Provider: Diagnosis: Last Documented On 9 2:17PM By Halima Levine ; [facility] Lyrica 100MG Oral Capsule 09/07/2018 Provider: Galen Andrade APRN Diagnosis: Last Documented On 9 2:17PM By Halima Levine ; [facility] Furosemide 20MG Oral Tablet 09/07/2018 Provider: Marti Andrade APRN Diagnosis: Last Documented On 9 2:17PM By Halima Levine ; [facility] Fluconazole 150MG Oral Tablet 09/07/2018 Provider: Marti Andrade APRN Diagnosis: Last Documented On 9 2:17PM By Halima Levine ; [facility] Uloric 40MG Oral Tablet 08/25/2018 Provider: JOHN DE DIOS Diagnosis: Last Documented On 9 2:17PM By Halima Levine ; [facility], [facility] DULoxetine HCl 60MG Oral Cap heaven Delayed Release Particles 08/23/2018 Provider: YESSICA DE DIOS Diagnosis: Last Documented On 9 2:17PM By Halima Levine ; [facility] Ipratropium-Albuterol 0.5-2.5 (3)MG/3ML Inhalati on Solution 08/23/2018 Provider: Diagnosis: Last Documented On 9 2:18PM By Halima Levine ; [facility], [facility] Medications Administered Includes: Administered Medications from this encounter No Administered Medications Recorded Results Includes: Results discussed during this encounter No Results Recorded For Specified Dates History of Present Illness Includes: History of Present Illness from this encounter No History of Present Illness Recorded Social History No Social History Recorded - Smoking Status Unknown Medical History Includes: Medical History addressed during this encounter No Medical History Recorded Family History Includes: Family History addressed during this encounter No Family History Recorded Review of Systems Includes: Review of Systems from this encounter No Review of Systems Recorded Mental Status Includes: Mental Status from this encounter No Mental Status Recorded Functional Status Includes: Functional Status from this encounter No Functional Status Recorded Physical Exam Includes: Physical Exam from this encounter No Physical Exam Recorded Allergies Includes: Active Allergies Substance Type Reaction Onset Date Resolved Date Statu s Penicillin G Benzathine Allergy 09/20/2018 Active Last Documented On 9 10:40AM ; [facility] Encounters Encounter Provider Location Date Check-In Time Check-Out Time Diagnosis [Patient Encounter] José Mckeon MD 11/15/2018 10:36AM 11:59PM Insurance Includes: Active Insurance Policies Plan Name Member ID Group # Subscriber Relationship Effect bridgett Dates 1 - [facility] [id number] Moraima [place] Clinical Notes Includes: Clinical Notes from this encounter No Clinical Notes Recorded
--- OUTSIDE RECORDS SUMMARY | 2024-06-08 21:36 | XMS_ITS ---
Care Plan - [facility] Created on: June 08, 2024 Moraima Loya : 1965 Sex: Female Author Organization [facility] Address [address] [place] [address] Phone Care Team Providers Care Search Lead Name Role Phone YESSICA DE DIOS Unavailable [phone] David Toussaint MD Unavailable [phone]
--- OUTSIDE RECORDS SUMMARY | 2024-06-08 21:37 | XMS_ITS | Clinical Summary ---
Author Organization [facility] , [facility] Address [address] [place] [address] Phone Care Team Providers Care Plush Cutter Name Role Phone DE DIOSYESSICA Unavailable [phone] David Toussaint MD Unavailable [phone] Reason for Visit and Chief Complaint The Chief Complaint is: Right knee pain Problems Includes: Problems addressed during this encounter and other active Problems All Visits Onset Date Resolved Date Provider Condition S tatus Joint Pain in the Right Knee 09/20/2018 José Mckeon MD Active Last Documented On 9 2:16PM ; [facility] Plan of Treatment She has evidence of chronic pain in his right knee. She has had appropriate conservative treatment and has failed it. She is having significant problems with day-to-day activity. Based on the history, physical examination and the radiographs I believe she is a candidate for partial knee replacement. We discussed the procedure and its rationale. We explained the possibility of converting this to a total knee either at the time of surgery or at some time in the future. We explained risks which include but are not limited to, bleeding, infection and incomplete pain relief and the possibility of further surgery in the future. She understands and would like to proceed. 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 She is otherwise healthy good surgical candidate. We'll plan to do this under general anesthetic at the surgery center. She had no further questions. - Last Documented On 09/27/2018 11:27AM ; [facility], [facility] Instructions to patient Instructions for patient to see pcp for weight and bp Last Documented On 9 10:40AM ; [facility], [facility] Lose weight Last Documented On 9 10:40AM ; [facility], [facility] Assessments Includes: Assessments from this encounter No Assessments Recorded Instructions Includes: Instructions from this encounter Instructions to patient Instructions for patient to see pcp for weight and bp Last Documented On 9 10:40AM ; [facility], [facility] Lose weight Last Documented On 9 10:40AM ; [facility], [facility] Medical Equipment - Implanted Devices Includes: Current Devices No Medical Equipment Recorded Medications Includes: Medications discussed during this encounter and other current Medications Current Medications (continue as prescribed) Cartia XT 240MG Oral Capsule Extended Release 24 Hour 09/19/2018 Provider: YESSICA DE DIOS Diagnosis: Last Documented On 9 2:17PM By Halima Levine ; [facility], [facility] Zolpidem Tartrate 10MG Oral Tablet 09/19/2018 Provid er: YESSICA DE DIOS Diagnosis: Last Documented On 9 2:16PM By Halima Levine ; [facility], [facility] Symbicort 160-4.5MCG/ACT Inhalation Aerosol 09/16/2018 Provider: Diagnosis: Last Documented On 9 2:17PM By Halima Levine ; [facility], [facility] Losartan Potassium-HCTZ 100-25MG Oral Tablet 9 Provider: Diagnosis: Last Documented On 9 2:17PM By Halima Levine ; [facility], [facility] Dupixent 300MG/2ML Subcutaneous Solution Prefilled Syr karlo 09/12/2018 Provider: Diagnosis: Last Documented On 9 2:17PM By Halima Levine ; [facility], [facility] Lyrica 100MG Oral Capsule 09/07/2018 Provider: Galen Andrade APRN Diagnosis: Last Documented On 9 2:17PM By Halima Levine ; [facility], [facility] Furosemide 20MG Oral Tablet 09/07/2018 Provider: Marti Andrade APRN Diagnosis: Last Documented On 9 2:17PM By Halima Levine ; [facility], [facility] Fluconazole 150MG Oral Tablet 09/07/2018 Provider: Marti Andrade APRN Diagnosis: Last Documented On 9 2:17PM By Halima Levine ; [facility], [facility] Uloric 40MG Oral Tablet 08/25/2018 Provider: JOHN DE DIOS Diagnosis: Last Documented On 9 2:17PM By Halima Levine ; [facility], [facility] DULoxetine HCl 60MG Oral Cap heaven Delayed Release Particles 08/23/2018 Provider: YESSICA DE DIOS Diagnosis: Last Documented On 9 2:17PM By Halima Levine ; [facility], [facility] Ipratropium-Albuterol 0.5-2.5 (3)MG/3ML Inhalati on Solution 08/23/2018 Provider: Diagnosis: Last Documented On 9 2:18PM By Halima Levine ; [facility], [facility] Past Medications on file Mupirocin 2% External Ointment 11/07/2018 - 11/12/2018 Provider: José li MD Diagnosis: Apply to nostrils three time s a day starting 5 days prior to surgery Last Documented On 9 10:50AM By Shaneka Medina ; [facility], [facility] Medications Administered Includes: Administered Medications from this encounter No Administered Medications Recorded Vital Signs Includes: Vital Signs from this encounter Vital Name 09/27/2018 10:46A Height (in) 65 Weight (lb) 238 Body Mass Index (kg/m2) 39.6 Body Surface Area (m2) 2.1 Note: hav Last Documented: On 09/27/2018 10:46A M ; [facility], [facility] Results Includes: Results discussed during this encounter No Results Recorded For Specified Dates History of Present Illness Includes: History of Present Illness from this encounter LYN Loya is a 53 year old female. - Medication list reviewed with patient. She is here for follow-up of her right knee. We saw her a week ago and diagnosed anteromedial osteo-arthritis of the knee. We tried an injection but she got no relief at all. She is having significant problems with day-to-day activity. It hurts with every step. There are problems sleeping. There are problems going up and down stairs and has to use a railing. Pain with getting out of a chair and sometimes has to use 2 arms. she has retired. she gets shots for her lungs which she said has made a significant improvement in her asthma and pneumonia. She uses a CPAP. Social History Description Last Updated Alcohol use 09/20/2018 Last Documented On 9 10:40AM ; [facility] No caffeine use 09/20/2018 Last Documented On 9 10:40AM ; [facility] No recent change in diet 09/20/2018 Last Documented On 9 10:40AM ; [facility] Not a current smoker 09/20/2018 Last Documented On 9 10:40AM ; [facility] Not exercising regularly 09/20/2018 Last Documented On 9 10:40AM ; [facility] Not using drugs 09/20/2018 Last Documented On 9 10:40AM ; [facility] No tobacco use 09/20/2018 Last Documented On 9 10:40AM ; [facility] Smoking status : Never smoker 09/20/2018 Last Documented On 9 10:40AM ; [facility] Procedures and Surgical History Includes: Procedures from this encounter Procedures Code Diagnosis Performing Provider Service L ocation Service Date history of an X-ray was performed 90569 Last Documented On 9 10:40AM ; [facility] history of an MRI was performed 54120 Last Documented On 9 10:40AM ; [facility] Surgical History Last Updated History of hysterectomy 09/20/2018 Last Documented On 9 10:40AM ; [facility] Medical History Includes: Medical History addressed during this encounter Description Last Updated Arthritic joint problems 09/20/2018 Last Documented On 9 10:40AM ; [facility] Gallbladder disease 09/20/2018 Last Documented On 9 10:40AM ; [facility] History of asthma 09/20/2018 Last Documented On 9 10:40AM ; [facility] History of depression 09/20/2018 Last Documented On 9 10:40AM ; [facility] Intermittent hypertension 09/20/2018 Last Documented On 9 10:40AM ; [facility] Family History Includes: Family History addressed during this encounter Description Last Updated Family history of heart disease 09/21/19 19 Last Documented On 9 10:40AM ; [facility] Family history of hypertension 9 Last Documented On 9 10:40AM ; [facility] Review of Systems Includes: Review of Systems from this encounter Systemic: Not feeling tired (fatigue) and no recent weight loss. Recent weight gain. No edema. Head: No headache and no sinus pain. Eyes: No vision problems and no glaucomatous visual field defect. Otolaryngeal: No hearing loss and no tinnitus. No nasal symptoms. Cardiovascular: No chest pain or discomfort and no palpitations. Pulmonary: No daytime asthma symptoms, no cough, and no chronic cough. No wheezing. Gastrointestinal: No heartburn and no abdominal pain. Endocrine: Hot flashes [...] Active Last Documented On 9 10:40AM ; [facility] Encounters Encounter Provider Location Date Check-In Time Check- Out Time Diagnosis Follow Up José Mckeon MD [facility] 9 10:20AM 11:35AM Insurance Includes: Active Insurance Policies Plan Name Member ID Group # Subscriber Relationship Effect bridgett Dates - [facility] [id number] Moraima Loya Self Clinical Notes Includes: Clinical Notes from this encounter No Clinical Notes Recorded
--- OUTSIDE RECORDS SUMMARY | 2024-06-08 21:37 | XMS_ITS ---
Author Organization [facility] , [facility] Address [address] [place] [address] Phone Care Team Providers Care Sergeant Of Corrections Name Role Phone LANRE YESSICA Unavailable [phone] David Toussaint MD Unavailable [phone] Problems Includes: Active, inactive, and resolved Problems All Visits Onset Date Resolved Date Provider Condition S tatus Joint Pain in the Right Knee 09/20/2018 José Mckeon MD Active Last Documented On 9 2:16PM ; [facility] Plan of Treatment Instructions to patient Instructions for patient to see pcp for weight and bp Last Documented On 9 10:40AM ; [facility], [facility] Lose weight Last Documented On 9 10[facility]40AM ; [facility] Instructions for patient to see pcp for weight and bp Last Documented On 9 2:30PM ; [facility], [facility] Lose weight Last Documented On 9 2:30PM ; [facility], [facility] Assessments Includes: Assessments for all patient encounters No Assessments Recorded Instructions Includes: Instructions for all patient encounters Instructions to patient Instructions for patient to see pcp for weight and bp Last Documented On 9 10:40AM ; [facility], [facility] Lose weight Last Documented On 9 10:40AM ; [facility], [facility] Instructions for patient to see pcp for weight and bp Last Documented On 9 2:30PM ; [facility], [facility] Lose weight Last Documented On 9 2:30PM ; [facility], [facility] Medical Equipment - Implanted Devices Includes: Current and historical Devices No Medical Equipment Recorded Medications Includes: Current and historical Medications Current Medications (continue as prescribed) Cartia XT 240MG Oral Capsule Extended Release 24 Hour 09/19/2018 Provider: YESSICA DE DIOS Diagnosis: Last Documented On 9 2:17PM By Halima Levine ; [facility], [facility] Zolpidem Tartrate 10MG Oral Tablet 09/19/2018 Provid er: YESSICA DE DIOS Diagnosis: Last Documented On 9 2:16PM By Halima Levine ; [facility], [facility] Symbicort 160-4.5MCG/ACT Inhalation Aerosol 09/16/2018 Provider: Diagnosis: Last Documented On 9 2:17PM By Halima Levine ; [facility], [facility] Losartan Potassium-HCTZ 100-25MG Oral Tablet 9 Provider: Diagnosis: Last Documented On 9 2:17PM By Halima Levine ; [facility], [facility] Dupixent 300MG/2ML Subcutaneous Solution Prefilled Syr karlo 09/12/2018 Provider: Diagnosis: Last Documented On 9 2:17PM By Halima Levine ; [facility], [facility] Lyrica 100MG Oral Capsule 09/07/2018 Provider: Galen Andrade APRN Diagnosis: Last Documented On 9 2:17PM By Halima Levine ; [facility], [facility] Furosemide 20MG Oral Tablet 09/07/2018 Provider: Marti Andrade APRN Diagnosis: Last Documented On 9 2:17PM By Halima Levine ; [facility], [facility] Fluconazole 150MG Oral Tablet 09/07/2018 Provider: Marti Andrade APRN Diagnosis: Last Documented On 9 2:17PM By Halima Levine ; [facility], [facility] Uloric 40MG Oral Tablet 08/25/2018 Provider: JOHN DE DIOS Diagnosis: Last Documented On 9 2:17PM By Halima Levine ; [facility], [facility] DULoxetine HCl 60MG Oral Cap heaven Delayed Release Particles 08/23/2018 Provider: YESSICA DE DIOS Diagnosis: Last Documented On 9 2:17PM By Halima Levine ; [facility], [facility] Ipratropium-Albuterol 0.5-2.5 (3)MG/3ML Inhalati on Solution 08/23/2018 Provider: Diagnosis: Last Documented On 9 2:18PM By Halima Levine ; [facility], [facility] Past Medications on file Mupirocin 2% External Ointment 11/07/2018 - 11/12/2018 Provider: José li MD Diagnosis: Apply to nostrils three time s a day starting 5 days prior to surgery Last Documented On 9 10:50AM By Shaneka Medina ; [facility], [facility] Medications Administered Includes: Administered Medications in patient's chart No Administered Medications Recorded Results Includes: Results from 06/09/2023 through 06/08/2024 No Results Recorded For Specified Dates History of Present Illness History of Present Illness not supported for this document type No History of Present Illness Recorded Social History Description Last Updated Alcohol use 09/20/2018 Last Documented On 9 11:51AM ; [facility], [facility] No caffeine use 09/20/2018 Last Documented On 9 11:51AM ; [facility], [facility] No recent change in diet 09/20/2018 Last Documented On 9 11:51AM ; [facility], [facility] Not a current smoker 09/20/2018 Last Documented On 9 11:51AM ; [facility], [facility] Not exercising regularly 09/20/2018 Last Documented On 9 11:51AM ; [facility], [facility] Not using drugs 09/20/2018 Last Documented On 9 11:51AM ; [facility], [facility] No tobacco use 09/20/2018 Last Documented On 9 11:51AM ; [facility], [facility] Smoking status : Never smoker 09/20/2018 Last Documented On 9 11:51AM ; [facility], [facility] Procedures and Surgical History Surgical History Last Updated History of hysterectomy 09/20/2018 Last Documented On 9 11:51AM ; [facility], [facility] Medical History Includes: Medical History in patient's chart Description Last Updated Arthritic joint problems 09/20/2018 Last Documented On 9 11:51AM ; [facility], [facility] Gallbladder disease 09/20/2018 Last Documented On 9 11:51AM ; [facility] History of asthma 09/20/2018 Last Documented On 9 11:51AM ; [facility] History of depression 09/20/2018 Last Documented On 9 11:51AM ; [facility] Intermittent hypertension 09/20/2018 Last Documented On 9 11:51AM ; [facility], [facility] Family History Includes: Family History in patient's chart Description Last Updated Family history of heart disease 09/21/19 19 Last Documented On 9 11:51AM ; [facility] Family history of hypertension 9 Last Documented On 9 11:51AM ; [facility] Review of Systems Review of Systems not supported for this document type No Review of Systems Recorded Mental Status No Mental Status Recorded Functional Status No Functional Status Recorded Physical Exam Physical Exam not supported for this document type No Physical Exam Recorded Allergies Includes: Active, inactive, and resolved Allergies Substance Type Reaction Onset Date Resolved Date Statu s Penicillin G Benzathine Allergy 09/20/2018 Active Last Documented On 9 10:40AM ; [facility] Insurance Includes: Active Insurance Policies Plan Name Member ID Group # Subscriber Relationship Effect bridgett Dates 1 - [facility] [id number] Moraima Loya Self Clinical Notes Includes: Signed Clinical Notes starting from 02/12/2022 No Clinical Notes Recorded
== END 2024-06-05 23:59 | disposition home or self-care (01) ==
LOC: LAB.DROPOF 06-06 14:53
PROVIDERS: PCP Nurse Practitioner Family; Visit Provider Nurse Practitioner Family
DX: D64.9 Anemia, unspecified (principal); M81.0 Age-related osteoporosis without current pathological fracture; E78.2 Mixed hyperlipidemia; I10 Essential (primary) hypertension; R73.03 Prediabetes; R53.83 Other fatigue
CPT/HCPCS: 80053; 80061; 82306; 82607; 82728; 83036; 83735; 84436; 84443; 85025

== ENCOUNTER 2024-07-05 08:45 | Outpatient (CLI) | payer BC, SELFPAY ==
--- OUTSIDE RECORDS SUMMARY | 2024-07-05 08:47 | XMS_ITS | Data Portability ---
Author Organization [facility] Address [address] [place] [address] Care Team Providers Care Manufacturing Process Technician Name Role Phone REBEKAH MCNEIL Primary Care Provider STELLA CLARK Pain Management BRYNN AREVALO Cement Breaker Assessment Encounter Date Assessment Date Assessment LastModified by Organization Details LastModified Time 12/03/2023 12/03/2023 Moraima Loya is a 58-year-old female presenting to the clinic for follow-up in regards to lumbar radiculopathy. The patient's son is present at the visit today. The patient is status post Medtronic spinal cord stimulator placement on 11/19/2023. The [employer] rep was present at the patient's visit today and made adjustments that should help alleviate the patient's radicular symptoms. The patient reports that she has had 2 falls recently which she states have been related to hypoxia. She is currently on 2 liters of home oxygen and notes that she has a follow-up this next week with her Cement Breaker. In terms of her back pain, she is doing well. The incision site from the SCS battery placement appears C/D/I without surrounding erythema or edema. The patient will follow-up on 01/21/24 at 10am, the Medtronic rep will meet the patient at visit as well. jose Not available 12/03/2023 11:25:48 01/21/2024 01/21/2024 Moraima Loya is a 58-year-old female presenting to the clinic for follow-up in regards to lumbar radiculopathy. The patient had a Medtronic spinal cord stimulator placed on 11/19/2023 and returns to clinic reporting at least 80% relief in symptoms. She notes that she is able to perform her ADLs such as shopping with minimal discomfort. The patient is status post bilateral knee arthroplasty and reports intermittent knee pain. She requests a refill on compounding cream to help with discomfort. The patient's current medication regimen consists of Yampa 7.5-325 mg twice daily as needed. Patient reports benefit with the use of the medication and denies any adverse side effects. Use of the medication has allowed for an overall increase in physical activity and ability to perform ADLs above the aptitude previously perceived without its use. It is evident that the medication provides not only a measure of pain relief but also improvement in functional capacity. As such we will plan to continue the medication at its current dose and frequency at this time. I have personally reviewed this patient's EVELYN report as per [facility] guidelines and it was found to be appropriate. Patient has a signed pain management agreement per clinic policy. Urine drug screen is up to date and appropriate as per [facility] guidelines. The medication is or continues to be in the best interest of patient centered care. Schedule II, III or IV medications were provided for symptom or disease control. Risks and benefits of such medications were discussed with the patient. Patient will follow-up in 2 months for further evaluation. kkolles Not available 01/21/2024 10:13:29 04/13/2024 04/13/2024 Moraima Loya is a 59-year-old woman with a history of lumbar radiculopathy presenting to the clinic today for follow-up. The patient had a Medtronic spinal cord stimulator placed in October and continues to experience significant relief in lower back pain and left? sided radicular symptoms. She does note some discomfort with prolonged periods of ambulation or standing, however notes that her current medication regimen provides temporary relief of symptoms. The patient had sinus surgery and missed her appointment last week however her surgeon prescribed a short course of Yampa following surgery and therefore the patient has not been without medication. The patient's current medication regimen consists of Yampa 7.5-325 mg twice daily as needed. She is prescribed Lyrica through her PCP. Patient reports benefit with the use of the medication and denies any adverse side effects. Use of the medication has allowed for an overall increase in physical activity and ability to perform ADLs above the aptitude previously perceived without its use. It is evident that the medication provides not only a measure of pain relief but also improvement in functional capacity. As such we will plan to continue the medication at its current dose and frequency at this time. I have personally reviewed this patient's EVELYN report as per [facility] guidelines and it was found to be appropriate. Patient has a signed pain management agreement per clinic policy. Urine drug screen is up to date and appropriate as per [facility] guidelines. The medication is or continues to be in the best interest of patient centered care. Schedule II, III or IV medications were provided for symptom or disease control. Risks and benefits of such medications were discussed with the patient. Patient will follow-up in 2 months for further evaluation. [email or web address] Not available 04/13/2024 09:16:10 Plan of Treatment Reminders Order Date Submit Date Provider Last Modified By Organization Details Last Modified Time Details Appointments RECHECK 2024 10:00A M JOSE C BOLTON PA-C Not available Not available Not available Lab None recorded. Referral None recorded. Procedures pulse oximetry with exercise (PROC) 2023 024 [facility], [address], [place], [address], 12/28/2023 16:28:22 Surgeries None recorded. Imaging None recorded. Medication Orders Compound Rx Alternati ves Neuropath ic Pain Cream 2023 024 [facility], [address], [place], [address], 01/21/2024 10:11:02 Patient TargetsNo targets recorded. Patient Instructions Encounter Date Encounter Id Patient Instructions Last Modified By Organization Details Last Modified Time 12/03/2023 [id number] WRAP-UP Thank you for visiting [facility] at [facility] today. At today's visit the following were addressed: - Follow-up 01/21/24 at 10am Thank you for visiting the [facility]. - Because of the high volume of calls we receive and the high demand for our clinical services, please allow for 24 hours for us to respond to patient calls. We are generally unable to discuss patient care advice over the telephone. If you are experiencing a medication side effect or complication, you can call and let us know, but we will typically not make a medication substitution or change attendant the telephone. - Acute exacerbations of pain and flare ups are quite common in chronic pain states and need to be dealt with as part of the intermediate frame tender management plan. Please make an appointment with us if you wish to discuss a matter in any detail. Should you still need to call, please do so at . For additional information and services provided by our clinic you may visit our Pain Management Clinic website at: [email or web address] Thank you for choosing [facility]. It was a pleasure to see you in clinic today. Please contact us with any questions or concerns at . [email or web address] Not available 12/03/2023 11:19:55 12/23/2023 [id number] f/u after sleep study aerwin Not available 12/28/2023 16:24:06 01/21/2024 [id number] WRAP-UP Thank delta u for visiting [facility] at [facility] today. At today's visit the following were addressed: - Compounding cream - Refills - 2 month f/u Thank you for visiting the [facility]. - Because of the high volume of calls we receive and the high demand for our clinical services, please allow for 24 hours for us to respond to patient calls. We are generally unable to discuss patient care advice over the telephone. If you are experiencing a medication side effect or complication, you can call and let us know, but we will typically not make a medication substitution or change attendant the telephone. - Acute exacerbations of pain and flare ups are quite common in chronic pain states and need to be dealt with as part of the intermediate frame tender management plan. Please make an appointment with us if you wish to discuss a matter in any detail. Should you still need to call, please do so at . For additional information and services provided by our clinic you may visit our Pain Management Clinic website at: [email or web address] Thank you for choosing [facility]. It was a pleasure to see you in clinic today. Please contact us with any questions or concerns at . kkolles Not available 01/21/2024 10:09:29 04/13/2024 [id number] WRAP-UP Thank delta valdez for visiting [facility] at [facility] today. At today's visit the following were addressed: - Refills - 2 month follow-up Thank you for visiting the [facility]. - Because of the high volume of calls we receive and the high demand for our clinical services, please allow for 24 hours for us to respond to patient calls. We are generally unable to discuss patient care advice over the telephone. If you are experiencing a medication side effect or complication, you can call and let us know, but we will typically not make a medication substitution or change attendant the telephone. - Acute exacerbations of pain and flare ups are quite common in chronic pain states and need to be dealt with as part of the intermediate frame tender management plan. Please make an appointment with us if you wish to discuss a matter in any detail. Should you still need to call, please do so at . For additional information and services provided by our clinic you may visit our Pain Management Clinic website at: [email or web address] Thank you for choosing [facility]. It was a pleasure to see you in clinic today. Please contact us with any questions or concerns at . [email or web address] Not available 04/13/2024 09:12:30 Reason for Referral None Reported. Results Created Date Observation Date Name Description Value Unit Range Abnormal Flag Note LastModifiedBy Organization Detail LastModifiedTime 12/03/1912/03/2023 COMPL ETE BLOOD COUNT white blood cells 9.2 10*3/ uL 3.8-10 .8 normal Not Available [facility] [address] [place], [address], 12/03/2023 12:28:30 12/03/19 24 12/03/2023 COMPL ETE BLOOD COUNT red blood cells 5.08 10*6/ uL 3.80-5 .20 normal Not Available [facility] [address] [place], [address], 12/03/2023 12:28:30 12/03/19 24 12/03/2023 COMPL ETE BLOOD COUNT hemoglobin 15.3 g/dL 12.0-1 6.0 normal Not Available [facility] [address] [place] [address], [address], 12/03/2023 12:28:30 12/03/19 24 12/03/2023 COMPL ETE BLOOD COUNT hematocrit 44.1 % 35.0-4 7.0 normal Not Available [facility] [address] [place] [address], [address], 12/03/2023 12:28:30 12/03/1912/03/2023 COMPL ETE BLOOD COUNT MCV 87 fL 80-100 normal Not Available [facility] [address] [place] [address], [address], 12/03/2023 12:28:30 12/03/19 24 12/03/2023 COMPL ETE BLOOD COUNT MCH 30 pg 26-35 normal Not Available [facility] [address] [place] [address], [address], 12/03/2023 12:28:30 12/03/1912/03/2023 COMPL ETE BLOOD COUNT MCHC 35 g/dL 32-36 normal Not Available [facility] [address] [place] [address], [address], 12/03/2023 12:28:30 12/03/19 24 12/03/2023 COMPL ETE BLOOD COUNT RDW 13.9 % 11.0-1 5.0 normal Not Available [facility] [address] [place] [address], [address], 12/03/2023 12:28:30 12/03/19 24 12/03/2023 COMPL ETE BLOOD COUNT MPV 7.6 fL 6.2-10 .5 normal Not Available [facility] [address] [place] [address], [address], 12/03/2023 12:28:30 12/03/19 24 12/03/2023 COMPL ETE BLOOD COUNT platelet count 334 10*3/ uL 150-40 0 normal Not Available [facility] [address] [place] [address], [address], 12/03/2023 12:28:30 12/03/19 24 12/03/2023 COMPL ETE BLOOD COUNT neutrophil,a bsolute 5.7 10*3/ uL 1.6-8. 4 normal Not Available [facility] [address] [place] [address], [address], 12/03/2023 12:28:30 12/03/1912/03/2023 COMPL ETE BLOOD COUNT lymphocyte,a bsolute 2.4 10*3/ uL 0.4-5. 1 normal Not Available [facility] [address] [place] [address], [address], 12/03/2023 12:28:30 12/03/19 24 12/03/2023 COMPL ETE BLOOD COUNT monocyte,abs olute 0.8 10*3/ uL 0.0-1. 2 normal Not Available [facility] [address] [place] [address], [address], 12/03/2023 12:28:30 12/03/19 24 12/03/2023 COMPL ETE BLOOD COUNT eosinophil,a bsolute 0.2 10*3/ uL 0.0-0. 8 normal Not Available [facility] [address] [place] [address], [address], 12/03/2023 12:28:30 12/03/19 24 12/03/2023 COMPL ETE BLOOD COUNT basophil,abs olute 0.0 10*3/ uL 0.0-0. 3 normal Not Available [facility] [address] [place] [address], [address], 12/03/2023 12:28:30 12/03/19 24 12/03/2023 COMPL ETE BLOOD COUNT % neutrophils 62.4 % 42.0-7 8.0 normal Not Available [facility] [address] [place] [address], [address], 12/03/2023 12:28:30 12/03/19 24 12/03/2023 COMPL ETE BLOOD COUNT % lymphocytes 26.3 % 11.0-4 7.0 normal Not Available [facility] [address] [place] [address], [address], 12/03/2023 12:28:30 12/03/19 24 12/03/2023 COMPL ETE BLOOD COUNT % monocytes 8.3 % 0.0-11 .0 normal Not Available [facility] [address] [place] [address], [address], 12/03/2023 12:28:30 12/03/19 24 12/03/2023 COMPL ETE BLOOD COUNT % eosinophils 2.5 % 0.0-7. 0 normal Not Available [facility] [address] [place] [address], [address], 12/03/2023 12:28:30 12/03/19 24 12/03/2023 COMPL ETE BLOOD COUNT % basophils 0.5 % 0.0-3. 0 normal Not Available [facility] [address] [place] [address], [address], 12/03/2023 12:28:30 12/03/19 24 12/03/2023 COMPL ETE BLOOD COUNT nucleated red cells 0.0 % 0.0-0. 9 normal Not Available [facility] [address] [place] [address], [address], 12/03/2023 12:28:30 12/03/19 24 12/03/2023 COMPL ETE BLOOD COUNT nucleated RBCs, absolute 0.00 10*3/ uL not estab. normal Not Available [facility] [address] [place] [address], [address], 12/03/2023 12:28:30 04/13/19 25 04/14/2024 HIGH RISK DRUG PANEL amphetamines NEGATI VE NG/mL <500 normal Not Available [facility] [address] [place] [address], [address], 04/19/2024 06:02:53 04/13/19 25 04/14/2024 HIGH RISK DRUG PANEL barbiturates NEGATI VE NG/mL <300 normal Not Available [facility] [address] [place] [address], [address], 04/19/2024 06:02:53 04/13/19 25 04/14/2024 HIGH RISK DRUG PANEL benzodiazepi daniel NEGATI VE NG/mL <100 normal Not Available [facility] [address] [place] [address], [address], 04/19/2024 06:02:53 04/13/19 25 04/14/2024 HIGH RISK DRUG PANEL marijuana metabolite NEGATI VE NG/mL <20 normal Not Available [facility] [address] [place] [address], [address], 04/19/2024 06:02:53 04/13/19 25 04/14/2024 HIGH RISK DRUG PANEL cocaine metabolite NEGATI VE NG/mL <150 normal Not Available [facility] [address] [place] [address], [address], 04/19/2024 06:02:53 04/13/19 25 04/14/2024 HIGH RISK DRUG PANEL methadone metabolite NEGATI VE NG/mL <100 normal Not Available [facility] [address] [place] [address], [address], 04/19/2024 06:02:53 04/13/19 25 04/14/2024 HIGH RISK DRUG PANEL opiates POSITI VE NG/mL <100 abnormal Not Available [facility] [address] [place] [address], [address], 04/19/2024 06:02:53 04/13/19 25 04/14/2024 HIGH RISK DRUG PANEL codeine NEGATI VE NG/mL <50 normal Not Available [facility] [address] [place] [address], [address], 04/19/2024 06:02:53 04/13/19 25 04/14/2024 HIGH RISK DRUG PANEL hydrocodone 274 NG/mL <50 high Not Available [facility] [address] [place] [address], [address], 04/19/2024 06:02:53 04/13/19 25 04/14/2024 HIGH RISK DRUG PANEL hydromorphon e NEGATI VE NG/mL <50 normal Not Available [facility] [address] [place] [address], [address], 04/19/2024 06:02:53 04/13/19 25 04/14/2024 HIGH RISK DRUG PANEL morphine NEGATI VE NG/mL <50 normal Not Available [facility] [address] [place] [address], [address], 04/19/2024 06:02:53 04/13/19 25 04/14/2024 HIGH RISK DRUG PANEL norhydrocodo ne 103 NG/mL <50 high Not Available [facility] [address] [place] [address], [address], 04/19/2024 06:02:53 04/13/19 25 04/14/2024 HIGH RISK DRUG PANEL oxycodone NEGATI VE NG/mL <100 normal Not Available [facility] [address] [place] [address], [address], 04/19/2024 06:02:53 04/13/19 25 04/14/2024 HIGH RISK DRUG PANEL phencyclidin e NEGATI VE NG/mL <25 normal Not Available [facility] [address] [place] [address], [address], 04/19/2024 06:02:53 04/13/19 25 04/14/2024 HIGH RISK DRUG PANEL creatinine 21.0 mg/dL > or = 20.0 normal Not Available [facility] [address] [place] [address], [address], 04/19/2024 06:02:53 04/13/19 25 04/14/2024 HIGH RISK DRUG PANEL specific gravity 1.009 > or = 1.003 normal Not Available [facility] [address] [place] [address], [address], 04/19/2024 06:02:53 04/13/19 25 04/14/2024 HIGH RISK DRUG PANEL pH 7.1 4.5-9. 0 normal Not Available [facility] [address] [place] [address], [address], 04/19/2024 06:02:53 04/13/19 25 04/14/2024 HIGH RISK DRUG PANEL oxidant NEGATI VE mcg/m L <200 normal Not Available [facility] [address] [place] [address], [address], 04/19/2024 06:02:53 04/13/19 25 04/14/2024 HIGH RISK DRUG PANEL fentanyl NEGATI VE NG/mL <0.5 normal Not Available [facility] [address] [place] [address], [address], 04/19/2024 06:02:53 04/13/19 25 04/15/2024 HIGH RISK DRUG PANEL ethyl glucuronide NEGATI VE NG/mL <500 normal Not Available [facility] [address] [place] [address], [address], 04/19/2024 06:02:53 04/13/19 25 04/15/2024 HIGH RISK DRUG PANEL ethyl sulfate NEGATI VE NG/mL <100 normal Not Available [facility] [address] [place] [address], [address], 04/19/2024 06:02:53 04/13/19 25 04/16/2024 HIGH RISK DRUG PANEL comment SEE NOTE normal This drug testi ng is for medic al treat ment only. Kalia sis was perfo rmed as non-f orens ic testi ng and these resul ts shoul d be used only by healt hcare provi ders to rende r diagn osis or treat ment, or to monit or progr ess of medic al condi tions . LDT Notes : Confi rmati on tests were devel oped and their kalia tical perfo rmanc e nilsa cteri stics have been deter mined by [facility]. It has not been clear ed or appro madi by the FDA. This assay has been valid ated pursu ant to the CLIA regul ation s and is used for clini jerica purpo ses. Healt hcare Provi ders needi ng Inter preta tion mckay ilan traylor e conta ct us at 1.877 .40.R XTOX (1.87 7.407 .9869 ) M-F, 8am to 10pm EST Not Available [facility] [address] [place] [address], [address], 04/19/2024 06:02:53 04/13/19 25 04/16/2024 HIGH RISK DRUG PANEL gabapentin NEGATI VE NG/mL <1000 normal Not Available [facility] [address] [place] [address], [address], 04/19/2024 06:02:53 04/13/19 25 04/16/2024 HIGH RISK DRUG PANEL pregabalin, qt ur >71165 0 NG/mL <1000 high Not Available [facility] [address] [place], [address], 04/19/2024 06:02:53 04/13/19 25 04/16/2024 HIGH RISK DRUG PANEL desmethyltra madol NEGATI VE NG/mL <100 normal Not Available [facility] [address] [place], [address], 04/19/2024 06:02:53 04/13/19 25 04/16/2024 HIGH RISK DRUG PANEL tramadol NEGATI VE NG/mL <100 normal Not Available [facility] [address] [place] [address], [address], 04/19/2024 06:02:53 04/13/19 25 04/16/2024 HIGH RISK DRUG PANEL heroin metabolite, qt ur NEGATI VE NG/mL <10 normal Not Available [facility] [address] [place] [address], [address], 04/19/2024 06:02:53 04/13/19 25 04/16/2024 HIGH RISK DRUG PANEL buprenorphin e NEGATI VE NG/mL <2 normal Not Available [facility] [address] [place] [address], [address], 04/19/2024 06:02:53 04/13/19 25 04/16/2024 HIGH RISK DRUG PANEL norbuprenorp cammie INTERF ERENCE NG/mL <2 abnormal See Note A Not Available [facility] [address] [place] [address], [address], 04/19/2024 06:02:53 04/13/19 25 04/16/2024 HIGH RISK DRUG PANEL naloxone NEGATI VE NG/mL <2 normal Not Available [facility] [address] [place] [address], [address], 04/19/2024 06:02:53 04/13/19 25 04/19/2024 HIGH RISK DRUG PANEL tapentadol NEGATI VE NG/mL <50 normal Not Available [facility] [address] [place] [address], [address], 04/19/2024 06:02:53 04/13/19 25 04/19/2024 HIGH RISK DRUG PANEL nortapentado l NEGATI VE NG/mL <50 normal Not Available [facility] [place], [address], 04/19/2024 06:02:53 11/11/19 24 09/23/2020 polys omnog trae , titra tion study (PROC ) No observ ation record ed. [facility] (Med Record) [address], [place], [address], 11/11/2023 10:13:42 11/11/19 24 12/22/2022 CT, angio gram, chest + abdom en + pelvi s, w/wo contr ast No observ ation record ed. [facility] (Med Record) [address], [place], [address], 11/11/2023 13:23:18 11/22/19 24 11/22/2023 RF, diaph ragm No observ ation record ed. aerwin Not Available 2023 11:44:18 11/22/19 24 11/22/2023 US, doppl er echoc ardio gram, w/ color flow No observ ation record ed. aerwin [facility] [address] , [place], [address], 11/30/2023 11:44:25 01/24/20 24 01/18/2024 polys omnog trae , split night (PROC ) No observ ation record ed. aerwin Not Available 2023 16:40:24 Result Notes None recorded. Problems Name Problem SNOMED Code Status Onset Date Resolution Date Notes Provider Name and Address Organization Details Recorded Time Electroca rdiogram abnormal 250936126 Active 2014 From [employer];Provi yaya: Chucky Valdez III;Stat us: Active Not Available [employer] 6 02:07:36 Chest pain 26788416 Active 2014 From [employer]ated [employer];Provi yyaa: Chucky Valdez III;Stat us: Active Not Available [employer] 6 02:07:36 Dyspnea 041357951 Active 2014 From Automated Load;Provi yaya: Chucky Valdez III;Stat us: Active Not Available [employer] 6 02:07:36 Hypertens bridgett heart disease 79015708 Active 2014 From Automated Load;Provi yaya: Chucky Valdez III;Stat us: Active Not Available [employer] 6 02:07:36 Problem Notes None recorded. Procedures Surgical History Date Name Laterality Status Provider Name and Address Organization Details Recorded Time 11/19/19 24 Spinal Cord Stimulator Placement completed STELLA CLARK MD [address] [place] [address] [place], [address], [facility] 11/19/2023 11:03:12 09/22/19 24 Spinal Cord Stimulator Trial completed STELLA CLARK MD [address] [place], [address], [facility] 09/22/2023 08:07:02 07/02/19 23 Injection, Transforaminal Epidural completed STELLA CLARK MD [address] [place] [address] [place], [address], [facility] 07/01/2022 07:34:51 05/07/19 23 Lumbar Medial Branch Blocks completed STELLA CLARK MD [address] [place] [address] [place], [address], [facility] 05/06/2022 11:29:34 10/29/19 22 Diffusion Capacity completed BRYNN AREVALO PA-C [address] [place], [address], [facility] 10/28/2021 11:55:34 10/29/19 22 Lung Volumes, Plethysmography completed BRYNN AREVALO PA-C [address] [place], [address], [facility] 10/28/2021 11:55:42 10/29/19 22 Demonstration Aerosol/Generator/ Nebulizer/Opticham phil completed Maryann Reis [facility] 10/28/2021 09:36:37 10/29/19 22 Spirometry with Bronchodilator completed BRYNN AREVALO PA-C [address] [place], [address], [facility] 10/28/2021 11:55:54 05/14/19 22 ARTHRODESIS (SURG) completed Cheryl Foley [facility] 05/20/2021 08:16:33 09/26/19 21 Injection, [place] [address] [place] [address], [address], [facility] 09/25/2020 12:09:03 04/24/19 21 Lumbar Medial Branch Blocks completed STELLA CLARK MD [address] [place], [address], [facility] 04/24/2020 10:38:22 05/03/19 20 Injection; Interlaminar Epidural Steroid completed STELLA CLARK MD [address] [place], [address], [facility] 05/03/2019 08:54:07 03/22/19 20 Injection, Transforaminal Epidural completed STELLA CLARK MD [address] [place], [address], [facility] 03/22/2019 08:36:22 09/15/19 19 Injection, Transforaminal Epidural completed STELLA CLARK MD [address] [place], [address], [facility] 09/14/2018 10:32:07 03/30/19 19 Injection, Transforaminal Epidural completed STELLA CLARK MD [address] [place], [address], [facility] 03/30/2018 09:34:46 hysterectomy completed [facility] 03/31/2021 14:53:16 Cholecystectomy completed [facility] 03/31/2021 14:53:24 procedure on urinary bladder completed [facility] 03/31/2021 14:53:39 Knee arthroscopy[facility] 14:53:46 Imaging Results Imaging Date Name Status [facility]Modified by [facility] Details LastModified Time 09/23/2020 polysomnograph y, titration study (PROC) completed [facility] (Med Record) [address], [place], [address], 11/11/2023 10:13:42 12/22/2022 CT, angiogram, chest + abdomen + pelvis, w/wo contrast completed [facility] (Med Record) [address], [place], [address], 11/11/2023 13:23:18 11/22/2023 RF, diaphragm completed Information not available 11/30/2023 11:44:18 11/22/2023 US, doppler echocardiogram , w/ color flow completed [facility] [address] , [place], [address], 11/30/2023 11:44:25 01/18/2024 polysomnograph y, split night (PROC) completed Information not available 02/15/2024 16:40:24 Procedure Notes None recorded. Medical Equipment None Reported. Allergies Allergen ID Allergen Name Allergen Category Reaction Reaction Severity Criticality Documentation Date Start Date Code Code System Note Provider Name and Address Organization Details Recorded Time 123160 Product containin g penicilli n (product) medicatio n itching Not available Not available 01/24/20162008 68899 8001 SNOMED React ion: ITCHI NG; Comme nt: Creat ed By: Keo childs Date: 2008 10:47 :56 AM; Not Available [facility] 6 03:46:36 Medications Name Sig Start Date Stop Date Status Note LastModified by Organization Details LastModified Time Compound Rx Alternati ves Neuropath ic Pain Cream Apply 1-2 grams to the affected area 3-4 times daily 2023 active Not Available Not Available Not Avai lable Compound Rx Alternati ves Neuropath ic Pain Cream Apply 1-2 grams to the affected area 3-4 times daily active Not Available Not Available No t Available losartan 50 mg tablet Take 1 tablet every day by oral route. 06/08 completed Not Available Not Available Not Available glycopyrr olate 1 mg tablet 10/28 completed Not Available Not Available Not Available cyclobenz aprine 10 mg tablet Take 1 tablet 3 times a day by oral route as needed. active Not Available Not Available No t Available fluconazo le 100 mg tablet 10/28 completed Not Available Not Available Not Available atorvasta tin 40 mg tablet 10/28 completed Not Available Not Available Not Available methocarb norma 500 mg tablet Take 1 tablet 3 times a day by oral route as needed. 12/22 completed Not Available Not Available Not Available clotrimaz ole 10 mg mike 10/28 completed Not Available Not Available Not Available bupropion HCl SR 150 mg tablet,12 hr sustained -release Daily 10/28 completed Not Available Not Available Not Available promethaz ine-DM 6.25 mg-15 mg/5 mL oral syrup 09/08 completed Not Available Not Available Not Available Percocet 7.5 mg-325 mg tablet Take 1 tablet every 6 hours by oral route as needed. 10/28 completed Not Available Not Available Not Available nystatin 100,000 unit/mL oral suspensio n 10/28 completed Not Available Not Available Not Available potassium chloride ER 10 mEq capsule,e xtended release 10/28 completed Not Available Not Available Not Available Protonix 40 mg tablet,de layed release Take 1 tablet every day by oral route. active Not Available Not Available No t Available doxycycli ne hyclate 100 mg capsule 10/28 completed Not Available Not Available Not Available ipratropi um 0.5 mg-albute rol 3 mg (2.5 mg base)/3 mL nebulizat ion soln 10/28 completed Not Available Not Available Not Available azithromy marie 250 mg tablet 10/28 completed Not Available Not Available Not Available Bumex 2 mg tablet Take 1 tablet every day by oral route. active Not Available Not Available No t Available tizanidin e 4 mg tablet 09/08 completed Not Available Not Available Not Available fluconazo le 150 mg tablet 10/28 completed Not Available Not Available Not Available clarithro mycin 500 mg tablet 09/08 completed Not Available Not Available Not Available hydrocodo ne 5 mg-acetam inophen 325 mg tablet Take 1 tablet every 4-6 hours by oral route as needed. 12/22 completed Not Available Not Available Not Available Lasix 40 mg tablet Take 1 tablet every day by oral route. 01/21 completed Not Available Not Available Not Available diltiazem CD 240 mg capsule,e xtended release 24 hr TAKE 1 CAPSULE BY MOUTH EVERY DAY OR DIRECTED 06/08 completed Not Available Not Available Not Available fluconazo le 200 mg tablet 10/28 completed Not Available Not Available Not Available meloxicam 15 mg tablet Take 1 tablet every day by oral route. 06/08 completed Not Available Not Available Not Available ondansetr on HCl 4 mg tablet 10/28 completed Not Available Not Available Not Available Medrol (Ck) 4 mg tablets in a dose pack as directed 07/14 completed Not Available Not Available Not Available prednison e 20 mg tablet take 2 tablets daily x 1 week then 1 tablet daily x 1 week 02/09 completed Not Available Not Available Not Available metronida zole 500 mg tablet 10/28 completed Not Available Not Available Not Available phentermi ne 37.5 mg tablet 10/28 completed Not Available Not Available Not Available allopurin ol 100 mg tablet 10/28 completed Not Available Not Available Not Available sulfameth oxazole 800 mg-trimet hoprim 160 mg tablet 10/28 completed Not Available Not Available Not Available aspirin 81 mg tablet,de layed release Take 1 tablet every day by oral route. active Not Available Not Available No t Available tramadol 50 mg tablet 09/08 completed Not Available Not Available Not Available spironola ctone 25 mg tablet Take 1 tablet every day by oral route. 06/08 completed Not Available Not Available Not Available prednison e 10 mg tablets in a dose pack 10/28 completed Not Available Not Available Not Available losartan 100 mg-hydroc hlorothia zide 25 mg tablet 10/28 completed Not Available Not Available Not Available oxycodone -acetamin ophen 5 mg-325 mg tablet 10/28 completed Not Available Not Available Not Available amlodipin e 10 mg tablet Daily 10/28 completed Not Available Not Available Not Available benzonata te 100 mg capsule 10/28 completed Not Available Not Available Not Available hydrocodo ne 7.5 mg-acetam inophen 325 mg tablet Take 1 tablet twice a day by oral route as needed for 30 days. 2024 active Patient came to appt. that was attempte d to be reschedu led when I wasn't here yesterda y and has not access to [facility] or another ride to appt. request 1 month refill Not Available Not Available Not Available cephalexi n 500 mg capsule Take 1 capsule every 6 hours by oral route for 7 days. 12/22 completed Not Available Not Available Not Available promethaz ine 25 mg tablet Take 1 tablet every 4 hours by oral route. active Not Available Not Available No t Available indometha marie 50 mg capsule 10/28 completed Not Available Not Available Not Available diclofena c sodium 75 mg tablet,de layed release 10/28 completed Not Available Not Available Not Available monteluka st 10 mg tablet Daily active Not Available Not Available Not Available codeine 10 mg-guaife nesin 100 mg/5 mL oral liquid 10/28 completed Not Available Not Available Not Available mupirocin 2 % topical ointment APPLY A SMALL AMOUNT TO THE NARES 3 TIMES PER DAY FOR 5 DAYS PRIOR TO PROCEDUR E 01/20 completed Not Available Not Available Not Available furosemid e 20 mg tablet 10/28 completed Not Available Not Available Not Available azelastin e 137 mcg (0.1 %) nasal spray 10/28 completed Not Available Not Available Not Available epinephri ne 0.3 mg/0.3 mL injection , auto-inje ctor 10/28 completed Not Available Not Available Not Available cefuroxim e axetil 500 mg tablet 10/28 completed Not Available Not Available Not Available polyethyl solange glycol 3350 17 gram/dose oral powder 10/28 completed Not Available Not Available Not Available levofloxa marie 500 mg tablet Take 1 tablet every 24 hours by oral route for 7 days. 01/21 completed Not Available Not Available Not Available levofloxa marie 750 mg tablet 10/28 completed Not Available Not Available Not Available zolpidem 10 mg tablet Bedtime 10/28 completed Not Available Not Available Not Available albuterol sulfate HFA 90 mcg/actua tion aerosol inhaler Inhale 2 puffs every 4 hours by inhalati on route as needed for 30 days. 2021 active Not Available Not Available Not Avai lable Nasal Decongest ant (pseudoep hedrine) 30 mg tablet 10/28 completed Not Available Not Available Not Available losartan 50 mg-hydroc hlorothia zide 12.5 mg tablet Daily 10/28 completed Not Available Not Available Not Available colchicin e 0.6 mg tablet 10/28 completed Not Available Not Available Not Available Zoloft 100 mg tablet Take 1 tablet every day by oral route. active Not Available Not Available No t Available ondansetr on 4 mg disintegr ating tablet 10/28 completed Not Available Not Available Not Available cefdinir 300 mg capsule 10/28 completed Not Available Not Available Not Available losartan 100 mg tablet 10/28 completed Not Available Not Available Not Available Hibiclens 4 % topical liquid Apply topicall y to procedur e area and scrub in bath the evening prior and morning of your procedur e. 01/20 completed Not Available Not Available Not Available ipratropi um bromide 0.02 % solution for inhalatio n 10/28 completed Not Available Not Available Not Available diazepam 5 mg tablet 10/28 completed Not Available Not Available Not Available metoclopr amide 10 mg tablet 10/28 completed Not Available Not Available Not Available Laxative (bisacody l) 5 mg tablet,de layed release 10/28 completed Not Available Not Available Not Available azithromy marie 500 mg tablet 10/28 completed Not Available Not Available Not Available Xolair 150 mg subcutane ous solution 10/28 completed Not Available Not Available Not Available rosuvasta tin 5 mg tablet 10/28 completed Not Available Not Available Not Available rosuvasta tin 10 mg tablet Take 1 tablet every day by oral route. 06/08 completed Not Available Not Available Not Available rosuvasta tin 40 mg tablet Take 1 tablet every day by oral route. active Not Available Not Available No t Available Spiriva with [employer] r 18 mcg and inhalatio n capsules 10/28 completed Not Available Not Available Not Available nitrofura ntoin monohydra te/macroc rystals 100 mg capsule 10/28 completed Not Available Not Available Not Available duloxetin e 30 mg capsule,d elayed release Two times a day 06/08 completed Not Available Not Available Not Available duloxetin e 60 mg capsule,d elayed release 10/28 completed Not Available Not Available Not Available Allergy Relief and Nasal Decongest ant 10 mg-240 mg tablet,ex tended rel 10/28 completed Not Available Not Available Not Available eszopiclo ne 2 mg tablet 10/28 completed Not Available Not Available Not Available Flovent HFA 110 mcg/actua tion aerosol inhaler 10/28 completed Not Available Not Available Not Available ibandrona te 150 mg tablet 10/28 completed Not Available Not Available Not Available pregabali n 100 mg capsule 10/28 completed Not Available Not Available Not Available pregabali n 150 mg capsule Take 1 capsule twice a day by oral route for 30 days. 10/28 completed Not Available Not Available Not Available Lyrica 75 mg capsule 09/08 completed Not Available Not Available Not Available Lyrica 200 mg capsule Take 1 capsule 3 times a day by oral route. 07/14 completed Not Available Not Available Not Available milk thistle active Not Available Not Available Not Available Coreg active Not Available Not Availa ble Not Available bumetanid e active Not Available Not Available Not Available ursodiol active Not Available Not Avai lable Not Available Lyrica active Not Available Not Availa ble Not Available Ranexa active Not Available Not Availa ble Not Available Symbicort 160 mcg-4.5 mcg/actua tion HFA aerosol inhaler Two times a day active Not Available Not Available No t Available levocetir izine 5 mg tablet Daily active Not Available Not Available No t Available Amitiza 8 mcg capsule 10/28 completed Not Available Not Available Not Available diclofena c 1 % topical gel 10/28 completed Not Available Not Available Not Available Eye Itch Relief 0.025 % (0.035 %) drops 10/28 completed Not Available Not Available Not Available febuxosta t 40 mg tablet 10/28 completed Not Available Not Available Not Available prasugrel HCl 01/20 completed Not Available Not Available Not Available QNASL 80 mcg/actua tion nasal aerosol spray 10/28 completed Not Available Not Available Not Available Dymista 137 mcg-50 mcg/spray nasal spray Two times a day 10/28 completed Frequenc y: bid;Medi cation Descript ion: azelasti ne-fluti casone nasal; Dosage:1 inhalati on; Route:na mellissa; refills: 0 Not Available Not Available Not Available Linzess active Not Available Not Avail able Not Available Spiriva Respimat 2.5 mcg/actua tion solution for inhalatio n active Not Available Not Available Not Available Spiriva Respimat 1.25 mcg/actua tion solution for inhalatio n 10/28 completed Not Available Not Available Not Available bupropion HCl 150 mg tablet,12 hr sustained -release( smoking deterrent ) Take 1 tablet twice a day by oral route. 06/08 completed Not Available Not Available Not Available Dupixent 300 mg/2 mL subcutane ous syringe 10/28 completed Not Available Not Available Not Available Dayvigo 5 mg tablet 10/28 completed Not Available Not Available Not Available Dupixent 300 mg/2 mL subcutane ous pen injector Inject by subcutan eous route. active Not Available Not Available No t Available Paxlovid 150 mg-100 mg tablets in a dose pack (Moderate Renal Dose) TAKE DIRECTED ON PACKAGE TWICE A DAY FOR 5 DAYS 10/28 completed Not Available Not Available Not Available Vitals Date Recorded Body height Provider Name an d Address Organization Details Last Updated DateTime 12/03/2023 161.29 cm Mai Owen [facility] 12/03/2023 10:09:44 Date Recorded Body height Body mass index (BMI) Body weight Heart rate Oxygen saturation Oxygen saturation in Arterial blood by Pulse oximetry Systolic blood pressure Diastolic blood pressure Provider Name and Address Organization Details Last Updated DateTime 161.29 cm 43.9 kg/m2 248240. 28 g 67 /min 97 % 97 % 118 mm[Hg] 74 mm[Hg] Jenelle Herron [facility] 14:01:13 Date Recorded Body height Body mass index (BMI) Body weight Pain severity - 0-10 verbal numeric rating [Score] - Reported Oxygen saturation Oxygen saturation in Arterial blood by Pulse oximetry Heart rate Provider Name and Address Organization Details Last Updated DateTime 4 161.29 cm 43.9 kg/m2 552220. 28 g 4 100 % 100 % 57 /min Mai Owen [facility] 4 09:58:57 Date Recorded Body height Body mass index (BMI) Body weight Pain severity - 0-10 verbal numeric rating [Score] - Reported Oxygen saturation Oxygen saturation in Arterial blood by Pulse oximetry Heart rate Provider Name and Address Organization Details Last Updated DateTime 5 161.29 cm 43.9 kg/m2 175996. 28 g 2 98 % 98 % 73 /min Mai Owen [facility] 5 08:41:49 Social History Question Answer Notes LastModified by Organizat ion Details LastModified Time Tobacco Smoking Status Never Smoker Ren Molina [facility] 11/08/2018 09:35:47 What Is Your Level Of Alcohol Consumption? None Information not available 10/28/2021 Are You Currently Employed? No Information not available 11/09/2023 Have You Been Exposed To Chemicals Or Toxins? No Information not available 10/28/2021 What Was The Date Of Your Most Recent Tobacco Screening? 04/13/2024 [email or web address] Information not available 04/13/2024 How Much Tobacco Do You Smoke? No [email or web address] Information not available 11/08/2018 Do You Use Any Illicit Or Recreational Drugs? No Information not available 10/28/2021 Has Tobacco Cessation Counseling Been Provided? No Information not available 11/09/2023 Have You Recently Traveled Abroad? No Information not available 10/28/2021 Do You Or Have You Ever Used Any Other Forms Of Tobacco Or Nicotine? No Information not available 10/28/2021 Sex: Female Functional Status Question Answer Note LastModified by Organizat ion Details LastModified Time What is your exercise level? Occasional Information not available 10/28/2021 Mental Status None recorded. Family History Relationship Description Onset Age of this Age Resolved Age Notes LastModified by Organization Details LastModified Time Unspecified Relation Malignant neoplastic disease [email or web address] Not available 03/31 14:52:36 Unspecified Relation Hypertensive disorder [email or web address] Not available 03/31 14:52:45 Unspecified Relation Myocardial infarction [email or web address] Not available 03/03 14:52:50 Unspecified Relation Cerebrovascu lar accident [email or web address] Not available 14:52:55 Unspecified Relation Aneurysm [email or web address] Not available 03/31 14:53:02 Medical History Condition Response Arthritis Y Asthma Y Sleep Apnea Y High Cholesterol Y Fibromyalgia Y Hypertension Y Gynecological HistoryNo gynecological history recorded. Obstetrics History GPAL:G 0 P 0 0 0 0 Past Encounters Encounter ID Performer Location Encounter Start Date Encounter Closed Date Diagnosis/Indication Diagnosis SNOMED-CT Code Diagnosis ICD10 Code Diagnosis Note [id number] ROSALEE ZHENG MD [facility] [address] [facility] [place] [address] 03/14/2018 14:14:26 03/15/2018 15:40:30 Lumbar radiculopathy 072084144 M54.16 [id number] STELLA CLARK MD PAIN MEDICINE [address] [place] [address] 1 03/17/2018 10:17:26 03/17/2018 12:00:46 Lumbar radiculopathy 708900770 M54.16 [id number] STELLA CLARK MD [facility] [address] [place] [address] 1 03/30/2018 08:20:08 04/04/2018 08:55:32 Lumbar radiculopathy 619917162 M54.16 [id number] STELLA CLARK MD PAIN MEDICINE [address] [place] [address] 1 09/08/2018 09:23:24 09/08/2018 10:31:52 Lumbar radiculopathy 367191299 M54.16 [id number] STELLA CLARK MD [facility] [address] [place] [address] 1 09/14/2018 10:18:34 09/20/2018 09:42:49 Lumbar radiculopathy 198065516 M54.16 [id number] BRANDYN HERNANDEZ APRN PAIN MEDICINE [address] [place] [address] 11/08/2018 09:16:36 11/08/2018 10:07:33 Lumbar radiculopathy 612986299 M54.16 Pain in right knee 89798 54397 53898 M25.561 Osteoarthr itis of right knee joint 6324602007 57303 M17.11 Long-term drug therapy 513819284 Z79.294 [id number] BRANDYN HERNANDEZ APRN PA[facility] [address] [place] [address] 1 01/30/2019 10:21:58 01/30/2019 12:18:14 Chronic low back pain 015762846 M54.5 Osteoarthr itis of knee 548525087 M17.9 Pain in right knee 37640 20399 64212 M25.561 Schedule Right knee genicular trial injection Lumbar radiculopathy 128 357205 M54.16 [id number] STELLA CLARK MD [facility] N[facility]ARG[facility] [address] [place] [address] 1 03/22/2019 08:09:46 03/23/2019 14:04:45 Lumbar radiculopathy 316239759 M54.16 [id number] STELLA CLARK MD PAIN MEDICINE [address] [place] [address] 1 04/24/2019 14:12:39 04/27/2019 13:58:51 Lumbar radiculopathy 407639662 M54.16 [id number] STELLA CLARK MD [facility] [address] [address] [place] [address] 1 05/03/2019 08:39:13 05/05/2019 12:46:46 Lumbar radiculopathy 165598346 M54.16 [id number] STELLA CLARK MD PAIN MEDICINE [address] [place] [address] 1 06/05/2019 11:21:35 06/05/2019 14:30:20 Lumbar radiculopathy 641339172 M54.16 [id number] STELLA CLARK MD PAIN MEDICINE [address] [place] [address] 1 07/14/2019 09:51:36 07/14/2019 10:43:50 Lumbar radiculopathy 359400906 M54.16 [id number] STELLA CLARK MD PAIN MEDICINE [address] [place] [address] 1 08/14/2019 11:06:24 08/14/2019 11:35:50 Lumbar radiculopathy 181340685 M54.16 Long-term drug therapy 407786436 Z79.507 [id number] STELLA CLARK MD PAIN MEDICINE [address] [place] [address] 1 10/24/2019 09:09:07 10/24/2019 11:02:33 Lumbar radiculopathy 933307094 M54.16 [id number] STELLA CLARK MD PAIN MEDICINE [address] [place] [address] 1 02/16/2020 14:02:16 02/16/2020 15:24:26 Lumbar radiculopathy 554645287 M54.16 Lumbar spondylosis 72725 0009 M47.195 [id number] STELLA CLARK MD [facility] N[facility] [address] [place] [address], [place] [address] 1 04/24/2020 10:35:04 04/26/2020 09:34:44 Lumbar spondylosis 455260448 M47.277 [id number] STELLA CLARK MD PAIN MEDICINE [address] [place] [address] 1 05/31/2020 14:55:35 05/31/2020 16:00:18 Lumbar radiculopathy 669447027 M54.16 Lumbar spondylosis 48144 0009 M47.777 [id number] STELLA CLARK MD PAIN MEDICINE [address] [place] [address] 1 07/05/2020 08:50:08 07/05/2020 10:37:38 Lumbar radiculopathy 636994807 M54.16 [id number] STELLA CLARK MD [facility] N[facility] [address] [place] [address], [place] [address] 1 09/25/2020 11:38:17 09/27/2020 09:22:12 Lumbar radiculopathy 472514283 M54.16 [id number] STELLA CLARK MD PAIN MEDICINE [address] [place] [address] 1 10/08/2020 15:41:05 10/08/2020 17:09:56 Lumbar radiculopathy [id number] M54.16 [id number] STELLA CLARK MD PAIN MEDICINE [address] [place] [address] 1 02/04/2021 14:49:46 02/04/2021 16:00:48 Lumbar radiculopathy 803092381 M54.16 Myofascial pain 01575283 9 M79.10 [id number] STELLA CLARK MD PAIN MEDICINE [address] [place] [address] 1 03/25/2021 15:28:08 03/25/2021 15:57:41 Lumbar radiculopathy 967841028 M54.16 Degenerati on of lumbar intervertebral disc 99395856 M51.36 [id number] ROSALEE ZHENG [facility] [address] [place] [id number] 03/31/2021 14:18:53 04/08/2021 08:43:44 Lumbar spondylolisthesis [id number] 05831 M43.16 Time spent reviewing images, discussing the diagnosis and coordinati ng care: 30min [id number] ROSALEE ZHENG MD SURGERY SCHEDULE [address] [place] [address] 1 05/16/2021 11:08:21 05/16/2021 15:59:55 [id number] ROSALEE [facility]HENG [facility] [address] [place] [id number] 05/29/2021 14:42:41 05/29/2021 16:18:02 [id number] ROSALEE ZHENG MD [facility] [address] [place] [id number] 06/19/2021 09:15:45 06/19/2021 14:31:18 Postoperative care [id number] Z48.89 [id number] STELLA CLARK MD PAIN MEDICINE [address] [place] [address] 1 07/25/2021 09:26:20 07/25/2021 10:58:07 Lumbar radiculopathy 344416730 M54.16 Pain in left foot 325784 0175 73628 M79.672 Degenerati on of lumbar intervertebral disc 18570343 M51.36 [id number] BRYNN AREVALO PA-C PULMONARY [address] [place] [address], [place] [address] 1 10/28/2021 08:44:50 10/28/2021 11:58:28 Severe persistent asthma 590936036 J45.50 patient will continue current medication regimen at this time. Recurrent pneumonia 6990 04303 J18.9 Due to worsening shortness of breath and recurrent respirator y tract infection, I ordered a CT chest with contrast for further evaluation . I will also request her previous pulmonary records. Obstructiv e sleep apnea syndrome 68019882 G47.33 this is managed by different office. She wears CPAP with 2 liters per minute of oxygen at night. Dyspnea on exertion 6084 5006 R06.09 patient has scheduled follow-up with cardiology . She may need a repeat echocardio gram. She reports a history of CHF. [id number] NATASHA PAGE PA-C PAIN MEDICINE [address] [place] [address] 1 11/07/2021 10:38:36 11/07/2021 11:41:26 Lumbar radiculopathy 171477070 M54.16 Degenerati on of lumbar intervertebral disc 37772300 M51.36 Pain in left foot 329850 7194 76584 M79.672 [id number] NATASHA PAGE PA-C PAIN MEDICINE [address] [place] [address] 1 01/02/2022 11:43:25 01/02/2022 12:03:06 Lumbar radiculopathy 747613714 M54.16 Degenerati on of lumbar intervertebral disc 89168983 M51.36 Pain in left foot 927964 2193 29100 M79.672 [id number] BRYNN AREVALO PA-C PULMONARY [address] [facility], [place] [address] 1 01/21/2022 10:38:16 01/23/2022 09:15:28 Severe persistent asthma 592067719 J45.50 Asthma symptoms are currently well controlled . I recommend patient continue current medication regimen. No signs of acute infection. Recurrent pneumonia [address] chest without contrast today shows resolution of infiltrate . No further treatment or imaging needed at this time. right hemidiaphr agm elevated. will order sniff test. Obstructiv e sleep apnea syndrome 76340021 G47.33 this is managed by different office. She wears CPAP with 2 liters per minute of oxygen at night. 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 Dysfunctio n of posterior tibial tendon 3645967369 76886 M67.969 Hallux valgus 949476863 M20.11 M20.12 Pain in left foot 924171 6729 58982 M79.672 Pain in right foot 63880 18112 59782 M79.671 [id number] ROSALEE ZHENG MD [facility] [address] [facility],[address] [place] [id number] 03/05/2022 14:28:09 03/06/2022 16:34:25 Low back pain 361101849 M54.50 [id number] STELLA CLARK MD PAIN MEDICINE [address] [place] [address] 1 03/12/2022 10:09:04 03/12/2022 11:53:01 Lumbar radiculopathy 755978738 M54.16 Degenerati on of lumbar intervertebral disc 11280595 M51.36 [id number] STELLA CLARK MD [facility] PROFESSIO NAL CHARGES [address] [facility], [address] [place] [address] 05/06/2022 10:11:12 05/06/2022 12:25:20 Lumbar spondylosis 351460968 M47.816 [id number] STELLA CLARK MD PAIN MEDICINE [address] [place] [address] 1 05/12/2022 10:24:12 05/12/2022 10:51:51 Lumbar radiculopathy 318696209 M54.16 Degenerati on of lumbar intervertebral disc 89884506 M51.36 [id number] WEN GODWIN PA-C [facility] [address] [facility],[address] [place] [id number] 06/15/2022 10:50:10 06/16/2022 04:51:00 Lumbar radiculopathy 050851342 M54.16 [id number] STELLA CLARK MD [facility] PROFESSIO NAL CHARGES [address] [facility], [address] [place] [address] 1 07/01/2022 07:31:59 07/03/2022 07:44:45 Lumbar radiculopathy 747760462 M54.16 [id number] STELLA CLARK MD PAIN MEDICINE [address] [place] [address] 1 07/14/2022 13:40:34 07/14/2022 14:52:54 Lumbar radiculopathy 315825401 M54.16 Lumbar spondylosis 40419 0009 M47.816 Degenerati on of lumbar intervertebral disc 14050399 M51.36 [id number] STELLA CLARK MD PAIN MEDICINE [address] [place] [address] 1 09/08/2022 14:17:29 09/08/2022 14:50:04 Lumbar radiculopathy 002791261 M54.16 Degenerati on of lumbar intervertebral disc 24830056 M51.36 [id number] STELLA CLARK MD PAIN MEDICINE [address] [place] [address] 1 11/10/2022 15:19:37 11/10/2022 16:00:10 Lumbar radiculopathy 925111108 M54.16 Degenerati on of lumbar intervertebral disc 40418372 M51.36 [id number] STELLA CLARK MD PAIN MEDICINE [address] [place] [address] 1 01/11/2023 11:27:18 01/11/2023 11:41:17 Lumbar radiculopathy 615525808 M54.16 Degenerati on of lumbar intervertebral disc 31035529 M51.36 [id number] STELLA CLARK MD PAIN MEDICINE [address] [place] [address] 1 02/09/2023 14:35:26 02/10/2023 04:08:22 Lumbar radiculopathy 770090055 M54.16 Degenerati on of lumbar intervertebral disc 82096844 M51.36 [id number] JOSE C BOLTON PA-C PAIN MEDICINE [address] [place] [address] 1 04/12/2023 09:10:58 04/12/2023 09:39:33 Lumbar radiculopathy 739732241 M54.16 - Dr. Clark will send in patient's prescripti on for Yampa 7.5/325 mg twice daily as needed -Plan to revisit SCS trial in July 2023 upon completion of DAPT regimen for AMI Degenerati on of lumbar intervertebral disc 69947734 M51.36 Electrocar diogram abnormal 377379699 R94.31 [id number] JOSE C BOLTON PA-C PAIN MEDICINE [address] [place] [address] 1 06/09/2023 13:50:02 06/09/2023 14:11:57 Lumbar radiculopathy 939915061 M54.16 -Dr. Clark will send in patient's prescripti on for Yampa-Send ing in prescripti on for compoundin g cream-Resu bmitting for SCS trial and perm. We are checking with patient's Cardiologi st, Dr. Modi, to inquire as to if DAPT can be held for SCS trial/perm . Degenerati on of lumbar intervertebral disc 96666248 M51.36 [id number] JOSE C BOLTON PA-C PAIN MEDICINE [address] [place] [address] 1 08/11/2023 13:54:04 08/11/2023 14:31:19 Lumbar radiculopathy 256690510 M54.16 - Dr. Clark will send in patient's prescripti on for Yampa- SCS trial and perm placement is in appeals process with patient's insurance Degenerati on of lumbar intervertebral disc 54211599 M51.36 [id number] STELLA CLARK MD [facility] PROFESSIO NAL CHARGES [address] [facility], [address] [place] [address] 09/22/2023 06:52:49 09/28/2023 13:03:41 Lumbar radiculopathy 244312770 M54.16 [id number] STELLA CLARK MD PAIN MEDICINE [address] [place] [address] 1 09/27/2023 08:16:23 09/27/2023 09:02:08 Lumbar radiculopathy 636139005 M54.16 Degenerati on of lumbar intervertebral disc 38427460 M51.36 [id number] BRYNN AREVALO PA-C PULMONARY [address] [facility], [address] [place] [address] 1 11/09/2023 14:53:43 11/10/2023 08:43:31 Chronic hypoxemic respiratory failure 961258716 J96.11 Oxygen saturation on room air in the office today was 87%. She requires 2 L/min of oxygen during exertion and will need to continue this at night with BiPAP. Due to hypoxemia, patient also needs an echocardio gram with bubble study. There may be a component of obesity hypoventil ation syndrome. requested most recent echo from [facility]. Obstructiv e sleep apnea syndrome 22777303 G47.33 I requested a copy of her last sleep study. She will most likely need a repeat sleep study performed in the lab. I am unable to order her a new machine without her diagnostic sleep study on file. Elevated diaphragm [address] chest performed in 2021 showed elevated right hemidiaphr agm. I would recommend a sniff test which has been ordered. requested copy of [facility] chest from [facility] from 2022. Severe per sistent asthma 978842423 J45.50 Patient is also on Dupixent and has been for several years. This is prescribed by her cylinder sander operator. I did not make any changes in her asthma medication regimen at this time. Chronic sinusitis 597078 [address] of sinuses. [id number] STELLA CLARK MD [facility] PROFESS[facility] NAL CHARGES [address] [facility], [address] [place] [address] 11/17/2023 13:01:18 11/17/2023 13:01:53 [id number] STELLA CLARK MD [facility] DWIGHT NAL CHARGES [address] [facility], [address] [place] [address] 1 11/19/2023 08:19:16 11/19/2023 08:20:01 Lumbar radiculopathy 036861212 M54.16 [id number] JOSE C BOLTON PA-C PAIN MEDICINE [address] [place] [address] 1 11/26/2023 09:20:46 11/26/2023 09:35:13 Lumbar radiculopathy 528985994 M54.16 - Dr. Clark will send in patient's prescripti on for Yampa- SCS trial and perm placement on 11/19/23 Degenerati on of lumbar intervertebral disc 73633526 M51.36 [id number] JOSE C BOLTON PA-C PAIN MEDICINE [address] [place] [address] 1 12/03/2023 10:04:09 12/03/2023 11:13:30 Lumbar radiculopathy 582595599 M54.16 SCS placement on 11/19/23, [employer] adjustment in clinic today Degenerati on of lumbar intervertebral disc 22884612 M51.362 [id number] BRYNN AREVALO PA-C PULMONARY [address] [facility], [address] [place] [address] 1 12/23/2023 13:56:17 12/24/2023 08:22:34 Obstructive sleep apnea syndrome 40668951 G47.33 In lab sleep study has been ordered. Awaiting to be scheduled. Severe per sistent asthma 833254092 J45.50 Patient is also on Dupixent and has been for several years. This is prescribed by her cylinder sander operator. I did not make any changes in her asthma medication regimen at this time. Chronic hy poxemic respiratory failure 952711276 J96.11 Echocardio gram shows no evidence of shunt or pulmonary hypertensi on. Sniff test was negative. Previous CT chest was negative for pulmonary embolism. No other pulmonary abnormalit ies noted. Patient is able to obtain adequate oxygen saturation with exerciseOn 2 L/min POC. This will be ordered. She will continue 2 L/min of oxygen during exertion and at night. Extreme ob esity with alveolar hypoventilation 502909597 E66.2 Most likely there is a component of obesity hypoventil ation syndrome. Patient is interested in weight loss. She has also considered having a breast reduction. [id number] JOSE C BOLTON PA-C PAIN MEDICINE [address] [place] [address] 01/21/2024 09:49:19 01/21/2024 10:09:05 Lumbar radiculopathy 486002809 M54.16 SCS placement on 11/19/23 with at least 80% relief in symptoms Degenerati on of lumbar intervertebral disc 93982015 M51.362 Pain of bi lateral knee joints 4364759531 51876 M25.561 M25.562 [id number] BRYNN AREVALO PA-C PULMONARY [address] [facility], [address] [place] [address] 02/07/2024 15:57:14 02/08/2024 08:42:38 Obstructive sleep apnea syndrome 62961619 G47.33 BPAP is 01/04 has been ordered with 2 L/min of oxygen. Patient will call the office to schedule a follow-up after obtaining BiPAP machine. Chronic hy poxemic respiratory failure 058081632 J96.11 continue 2 L/min of oxygen during exertion and at night. [id number] JOSE C BOLTON PA-C PAIN MEDICINE [address] [place] [address] 04/13/2024 08:30:28 04/13/2024 09:11:43 Lumbar radiculopathy 961976682 M54.16 SCS placement on 11/19/23 with at least 80% relief in symptoms Degenerati on of lumbar intervertebral disc 65090773 M51.362 Pain of bi lateral knee joints 2552849745 37264 M25.561 M25.562 Continue Compoundin g cream as needed Health Concerns Section Related Observation LastModified by Organization Detai ls LastModified Time None Recorded Concern Status LastModified by Organization Details LastModified Time None Recorded Advance Directives Directive None Recorded Payers Insurance Date Sequence Insurance Name Policy Number Policy Curry Covered Member ID Curry Member ID Guarantor Name 09/08/2018 1 [employer] (PPO) Aditya Loya [id number] Moraima Loya 11/22/2023 2 [place] Moraima Loya [id number] Moraima Loya 04/12/2023 1 [employer] [facility]SELF FUN[facility] [id number] Aditya Loya [id number] Moraima Loya 05/15/2019 PAYMENT PLAN Moraima Loya 06/05/2024 1 [place] [id number] Aditya Loya [id number] Moraima Loya Notes Date Note Type Note Provider Name and Address Organization Details Recorded Time 12/03/2023 text/html Moraima Loya is a 58 year old female here today follow up in regards to back pain. Patient underwent SCS [facility]- [employer] on 11/19/23. [employer] representatives present. Patient presents with oxygen today and states she had two falls in the past days which she attributes to oxygen issues. States she was evaluated in the ER. JOSE C BOLTON PA-C [address] [place], [address], [facility] 12/03/2023 11:26:10 12/23/2023 text/html Patient is here for follow-up. She is being evaluated for hypoxemia. A sniff test was performed due to elevated diaphragm but this was negative. Previous CT chest showed no evidence of pulmonary embolism. Echocardiogram has shown no significant abnormalities. No shunt was noted. An in lab sleep study has been ordered but has not been scheduled yet. Asthma symptoms have remained stable. DME is Radha AREVALO PA-C [address] [place], [address], [facility] 12/28/2023 16:24:23 01/21/2024 text/html Moraima Loya is a 58-year-old female presenting to the clinic for follow-up in regards to lumbar radiculopathy. The patient is status post [employer] spinal cord stimulator placement on 11/19/2023. Patient's current medication regimen consists of Yampa 7.5-325 mg twice daily as needed. Fill date 01/09/24, qty: 60. Patient has 38.5 pills left. Pain today is 4/10. JOSE C BOLTON PA-C [address] [place], [address], [facility] 01/21/2024 10:15:31 02/07/2024 text/html Patient recently had a CPAP/BiPAP titration study that showed BiPAP 11/6 was the best pressure setting. 2 L/min of oxygen with BiPAP was still needed. Visit today is being conducted via telehealth using both audio and video. Patient has expressed an understanding of the telehealth process and has consented. [place] BRYNN AREVALO PA-C [address] [place], [address], [facility] 02/08/2024 12:02:21 04/13/2024 text/html Moraima Loya is a 58-year-old female presenting to the clinic for follow-up in regards to lumbar radiculopathy. The patient's current medication regimen consists of Yampa 7.5-325 mg twice daily as needed. Fill date 03/10/24, qty: 60. Patient has 5 pills left. Pain today is 2/10. JOSE C BOLTON PA-C [address] [place], [address], [facility] 04/13/2024 09:17:16 OBGyn Episode No OBEpisode recorded.
[2024-07-06 14:11] LABS: Cortisol,AM 6.4 ug/dL (6.2-19.4)
== END 2024-07-05 23:59 | disposition home or self-care (01) ==
LOC: LAB 08:46
PROVIDERS: PCP Nurse Practitioner Family; Visit Provider Nurse Practitioner Family
DX: R79.89 Other specified abnormal findings of blood chemistry (principal)
CPT/HCPCS: 36415; 82384; 82533

== ENCOUNTER 2024-09-19 15:37 | Outpatient (CLI) | payer BC, SELFPAY ==
--- OUTSIDE RECORDS SUMMARY | 2024-09-19 15:39 | XMS_ITS | Encounter Summary ---
Author Organization [employer] ([place], [place], [place], [place]) Address [address] [place] [address] Care Team Providers Care Aeronautical Test Engineer Name Role Phone Saima Dorman APRN Primary Care Provider Encounter Details Date Type Department Care Team (Late st Contact Info) Description 05/14/2021 Transcribed Document [facility] [place] [address] [place] [address] ProviderKarena MD [address] [place] [address] Social History Tobacco Use Types Packs/Day Years Used Date Smoking Tobacco: Never Assessed Food Insecurity Answer Date Recorded Food run out past 12 months Not on file 03/01 Food did not last past 12 months Not on file 03/18/2023 Employment Answer Date Recorded Help finding and keeping a job Not on file 0 03/18/2023 Family and Community Support Answer Ted e Recorded Help with Day to Day Activities Not on file 03/18/2023 Feeling Lonely or Isolated Not on file 03/18 Educational Attainment Answer Date Juventino rded Speak language other than Colombian at home Not on file 03/18/2023 Want help with school or training Not on file 03/18/2023 Substance Use Answer Date Recorded Used prescription meds for non-medical reasons N ot on file 03/18/2023 Used illegal drugs past 12 months Not on file 03/18/2023 Comments Unknown Sex and Gender Information Value Date Recorded Sex Assigned at Not on file Legal Sex Female 5:23 PM CDT Gender Identity Not on file Sexual Orientation Not on file COVID-19 Exposure Response Date Recorded In the last 10 days, have yo u been in contact with someone who was confirmed or suspected to have Coronavirus/COVID-19? No / Unsure 09/14/2022 10:31 AM EDT documented as of this encounter Miscellaneous Notes * Cerner Conversion Note - Historical Provider, - 05/14/2021 6:00 AM CDT Pain Assessment Entered On: 05/14/2021 6:14 EDT Performed On: 05/14/2021 6:45 EDT by Marian Erickson RN Intervention Information: acetaminophen Performed by Marian Erickson RN on 05/14/2021 05:45:00 EDT acetaminophen,650mg Oral Pain Assessment Pain Assessment : Follow-up assessment Pain Scale Goal : 4 Location : Back Pain Improved by Intervention : Yes Marian Erickson RN - 05/14/2021 6:13 EDT Electronically signed by [facility] Conversion Floor Worker [employer] at 06/16/2022 10:44 AM CDT documented in this encounter Plan of Treatment Not on file documented as of this encounter Visit Diagnoses Not on filedocumented in this encounter Care Teams Aeronautical Test Engineer Relationship Specialty Start Date End Date Saima Dorman, GAS METER READER [address] [place] [address] PCP - General Nurse Practitioner 12/26/21 documented as of this encounter
--- OUTSIDE RECORDS SUMMARY | 2024-09-19 15:39 | XMS_ITS | Encounter Summary ---
Author Organization [employer] ([place], [place], [place], [place]) Address [address] [place] [address] Care Team Providers Care Band Top Maker Name Role Phone Yessica oDrman APRN Primary Care Provider Encounter Details Date Type Department Care Team (Late st Contact Info) Description 05/14/2021 Transcribed Document [facility] [place] [address] [place] [address] ProviderKarena MD [address] [place] [address] Social History Tobacco Use Types [...] Date Juventino rded Speak language other than Maldivian at home Not on file 03/18/2023 Want [...] Conversion Note - Historical Provider, - 05/14/2021 5:16 PM CDT Initial Discharge Planning Entered On: 05/14/2021 17:23 EDT Performed On: 05/14/2021 17:16 EDT by CELSO LEIJA RN-Disability Specialist Initial Assessment I Previously Documented Living Environment : No qualifying data available. Living Situation : Home Patient Lives With : Spouse Is the Patient a Caregiver at Home? : No Emergency Contact #1 : paola loya Emergency Contact #1 Emergency Contact #1 Relationship : daughter Emergency Contact #2 : 00 Emergency Contact #2 Phone Number : 00 Emergency Contact #2 Relationship : 00 Identified Medical Decision Maker : Moraima Loya Number of People in Class : 1 Identified Medical Decision Maker Class : self 2nd Ident. Medical Decision Maker : Aditya Loya 2nd Ident. Medical Decision Maker Secondary Number of People in Class : 1 2nd Ident. Medical Decision Maker Class : spouse Enter Doctors Name : YESSICA DORMAN APRN-FAM Does Patient have PCP Listed? : Yes CELSO LEIJA RN-Disability Specialist - 05/14/2021 17:16 EDT Initial Assessment II Sensory and Motor Deficits : Weakness Current Home Treatments and Equipment : Bedside commode, CPAP, Oxygen therapy, Shower chair, Walker Home Equipment Contact Information : Radha Does the Patient have a Floor to SNF Benefit? : No CELSO LEIJA RN-Disability Specialist - 05/14/2021 17:16 EDT Discharge Needs I Anticipated Discharge Date : 05/15/2021 EDT Anticipated Discharge To, CM : Home with family care, Home with home health Current Home Treatment/Equipment : Current Home Treatment/Equipment No qualifying data available. Post Acute/Home Treatments : Oxygen/Supplies, Other: wheels for walker Documentation Status Complete : Yes CELSO LEIJA RN-Disability Specialist - 05/14/2021 17:16 EDT Discharge Needs II Professional Skilled Services : Professional Skilled Services No qualifying data available. Needs Assistance with Transportation : No Discharge Options Discussed with Patient : DME, Home Health Patient Discharge Goal : Home health care CELSO LEIJA RN-Disability Specialist - 05/14/2021 17:16 EDT Narrative Note Narrative Note : 56yo female pt s/p L4-5 TLIF and lami. K-5.9, recheck-5.5. Recheck again in am. Pt ambulated 100ft with PT yesterday. This am pt very lethargic and sats dropped during night even with CPAP with O2 on. Met with pt and daughter at bedside to discuss DCP. Pt has home O2 for her CPAP at night. Pt is requiring O2 24/ right now. She has DME at home, but needs wheels for walker. Pt might need O2 order for continuous O2 at home. DCP: home +/- HH services tomorrow 05/15. CM will follow. CELSO LEIJA RN-Disability Specialist - 05/14/2021 17:16 EDT documented in this encounter Plan of Treatment Not on file documented as of this encounter Visit Diagnoses Not on filedocumented in this encounter Care Teams Band Top Maker Relationship Specialty Start Date End Date Yessica Dorman APRN [address] [address] PCP - General Nurse Practitioner 12/26/21 documented as of this encounter
--- OUTSIDE RECORDS SUMMARY | 2024-09-19 15:39 | XMS_ITS | Encounter Summary ---
Author Organization [employer] ([place], [place], [place], [place]) Address [address] [place] [address] Care Team Providers Care Die Storage Worker Name Role Phone Saima Dorman APRN Primary Care Provider Encounter Details Date Type Department Care Team (Late st Contact Info) Description 05/14/2021 Transcribed Document [facility] Radiology 1 [place] [address] Chelsey Corea MD [address] [place] [id number] Social History Tobacco Use Types Packs/Day Years [...] Date Juventino rded Speak language other than Thai at home Not on file 03/18/2023 Want [...] Miscellaneous Notes * Cerner Conversion Note - Chelsey Corea MD - 05/14/2021 1:00 PM EDT Patient: MORAIMA LOYA Age: 56 years Sex: Female : 1965 Associated Diagnoses: None Author: ANDIE HILL PA-[facility] 05/14/21 CC: postop medical management S: pt is still super sleepy. She was trying to use her CPAP last night. says it kept having seal broken. Pt is doing ok. No f'/c/s. No n/v/d. (+) gas, (-) BM. No CP, SOA, palpitations. No cough or sputum. Urinating well. +post op pain. Using incentive spirometer. HPI: 56 YO female presented to [facility] for a L4-[address] Bledsoe. Pt found to have advanced spondylolisthesis and failed conservative outpt interventions. Pt has elected for surgical intervention. We are asked to follow for postop medical management. Initial visit on floor -- pt is very sleepy from surgery and pain meds. Dtr is present and answers questions for pt. Denies prior stroke or seizure. Denies MT or cardiac arrhythmia. Denies DM. Denies COPD. +asthma, + ZIGGY, cpap - wears intermittently at home. . Denies DVT or PE. Denies h/o cancer. +urinary incontinence issues. Denies any recent illnesses that required abx. Denies prior skin infections. + hx of CHF, HTN. +HLD. +GERD. +fatty liver. No etoh or tob. PMHx: Active Problems (13) Arthritis Asthma Back pain Chronic CHF Chronic constipation Fatty liver Fibromyalgia GERD - Gastro-esophageal reflux disease High blood pressure History of obstructive sleep apnea Hyperlipidemia Pancreatitis Sleep apnea PSHx: bilateral knee replacement. LAPS W/VAGINAL HYSTERECTOMY > 250 GRAMS ([id number]). septal plasty. cholecysectomy. bladder sling. cortisone back injections. FHx: Mother - HTN, CAD Father - Siblings - HTN SHx: No alcohol, tob or illicit drug use. Home Medications (19) Active buPROPion 150 mg, Oral, Daily cyclobenzaprine 10 mg, PRN, Oral, TID dilTIAZem 240 mg, Oral, Daily DULoxetine 30 mg, Oral, BID Dupixent 200 mg, SubCutaneous, L4Szppw Lasix 40 mg, Oral, Daily levocetirizine 5 mg, Oral, Daily losartan 50 mg, Oral, Daily Lunesta 2 mg, Oral, At Bedtime Lyrica 200 mg, Oral, BID meloxicam 15 mg, Oral, Daily Milk Thistle oral capsule 1 Cap, Oral, Daily montelukast 10 mg, Oral, Daily promethazine 25 mg, PRN, Oral, Q6H Protonix 40 mg, Oral, Daily rosuvastatin 5 mg, Oral, At Bedtime Spiriva , Inhalation, Daily spironolactone 25 mg, Oral, Daily Symbicort 160 mcg-4.5 mcg/inh inhalation aerosol 2 Puff, Inhalation, BID Allergies (1) Active Reaction penicillins Rash PE: Vitals Signs (last 24 hrs) Last Charted Minimum Maximum Temp 97.6 (MAY 14 09:42) 97.6 (MAY 14 09:42) 98.1 (MAY 13 18:00) Apical HR 78 (MAY 14 09:45) 78 (MAY 14 09:45) 78 (MAY 14 09:45) Mon HR 85 (MAY 14 09:42) 68 (MAY 13 18:00) 85 (MAY 14 09:42) Resp Rate 17 (MAY 14 09:00) 14 (MAY 13 21:27) 20 (MAY 13 12:10) SBP 129 (MAY 14 09:42) 113 (MAY 13 13:00) H 151 (MAY 14 02:12) DBP 63 (MAY 14 09:42) L 59 (MAY 13 13:51) 75 (MAY 13 12:10) MAP 78 (MAY 14 09:42) 70 (MAY 13 13:00) 95 (MAY 13 12:10) SpO2 96 (MAY 14 09:42) L 81 (MAY 14 02:12) 99 (MAY 13 13:51) GEN: groggy, NAD CV: S1S2, no murmur. No LE edema Resp: decreased BS, NL; no wheezes or rhonchi. Abd: Soft, NT, ND +BS Skin: no rashes on inspection and palpation. Ext: No LE edema. No joint edema, erythema. Neuro: O x 3 Data: Labs (Last four charted values) WBC H 14.1 (MAY 14) H 11.0 (MAY 12) HB 11.5 (MAY 14) 14.3 (MAY 12) HCT 38.2 (MAY 14) 44.9 (MAY 12) Plt 304 (MAY 14) H 410 (MAY 12) Na L 134 (MAY 14) 136 (MAY 12) K H 5.5 (MAY 14) H 5.9 (MAY 14) 3.9 (MAY 12) Cl 105 (MAY 14) 103 (MAY 12) CO2 23 (MAY 14) 25 (MAY 12) BUN 17 (MAY 14) 20 (MAY 12) Cr 1.00 (MAY 14) H 1.30 (MAY 12) Glu R H 113 (MAY 14) H 115 (MAY 12) Ca 9.3 (MAY 14) H 10.2 (MAY 12) Preop: EKG Ventricular Rate : 78 BPM Atrial Rate : 78 BPM P-R Interval : 170 ms QRS Duration : 94 ms Q-T Interval : 366 ms QTC Calculation(Bezet) : 417 ms P [place] : 27 degrees R [place] : 24 degrees T [place] : 26 degrees Normal sinus rhythm Poor R wave progression Confirmed by Mona GUTIERREZ, ELEUTERIO ([id number]), book or script editor Odilia Vines ([id number]) on 05/12/2021 4:41:36 PM Assessment/Plan: Advanced spondylolisthesis -s/p L4-[address] Bledsoe. -bowel regimen -incentive spirometer -PT/OT -Pain management deferred to surgeon -will monitor hb/hct daily for signs of ongoing acute blood loss -will monitor bun/cr daily for signs of dehydration, prerenal azotemia -will monitor for signs/symptoms of post-op wound infection or hospital acquired infectious process Hyperkalemia -stat repeat -- was still 5.5 -250 ml NS bolus -recheck bmp tomorrow, cotninue to hold spironolactone at this time. Acute hypoxia -suspect due to medications. -work on weaning O2 here. CHF -lungs due to sound congested. -monitor for congestion/acute exacerbation. HTN -hold ARB and spironolactone and lasix, reassess BP and renal fxn in am -continue diltiazem - Monitor bp; add PRN's ZIGGY -CPAP at home -needs her O2 fixed to attach to her cpap at home. HLD -continue statin Chronic constipation -bowel regimen while at hospital. DVT prophylaxis: -SCDs GI prophylaxis: -on PPI Disposition: -recommend holding off d/c today. Assessment and treatment plan made in conjunction with Tadeo Corea MD documented in this encounter Plan of Treatment Not on file documented as of this encounter Visit Diagnoses Not on filedocumented in this encounter Care Teams Die Storage Worker Relationship Specialty Start Date End Date Saima Dorman, CHRISTI [address] [id number] PCP - General Nurse Practitioner 12/26/21 documented as of this encounter
--- OUTSIDE RECORDS SUMMARY | 2024-09-19 15:39 | XMS_ITS | Encounter Summary ---
Author Organization [employer] ([place], [place], [place], [place]) Address [address] [place] [address] Care Team Providers Care Review Rn Name Role Phone Saima Dorman APRN Primary Care Provider Encounter Details Date Type Department Care Team (Late st Contact Info) Description 05/14/2021 Transcribed Document [facility] Family Medicine [address] [place] [address] ProviderKarena MD [address] [place] [address] Social History Tobacco Use Types [...] Date Juventino rded Speak language other than Greenlandic at home Not on file 03/18/2023 Want [...] Conversion Note - Historical Provider, - 05/14/2021 10:00 PM CDT Pain Assessment Entered On: 05/14/2021 22:25 EDT Performed On: 05/14/2021 22:41 EDT by MARIA FERNANDA SHETTY RN-PATIENT CARE BEDSIDE NON-EXEMPT Intervention Information: acetaminophen Performed by MARIA FERNANDA SHETTY RN-PATIENT CARE BEDSIDE NON-EXEMPT on 05/14/2021 21:41:00 EDT acetaminophen,650mg Oral Pain Assessment Pain Assessment : Follow-up assessment Pain Scale Goal : 4 Duration : 3 MARIA FERNANDA SHETTY RN-PATIENT CARE BEDSIDE NON-EXEMPT - 05/14/2021 22:25 EDT Electronically signed by [facility] Conversion Commercial Real Estate Appraiser Cerner at 06/16/2022 11:00 AM CDT documented in this encounter Plan of Treatment Not on file documented as of this encounter Visit Diagnoses Not on filedocumented in this encounter Care Teams Review Rn Relationship Specialty Start Date End Date Saima Dorman, CHRISTI [address] [place] [address] PCP - General Nurse Practitioner 12/26/21 documented as of this encounter
--- OUTSIDE RECORDS SUMMARY | 2024-09-19 15:39 | XMS_ITS | Encounter Summary ---
Author Organization [employer] ([place], [place], [place], [place]) Address [address] [place] [address] Care Team Providers Care Blue Leather Setter Name Role Phone Saima Dorman APRN Primary Care Provider Encounter Details Date Type Department Care Team (Late st Contact Info) Description 05/13/2021 Transcribed Document [facility] Family Medicine [address] [place] [address] ProviderKarena MD [address] [place] [address] Social History Tobacco Use Types [...] Date Juventino rded Speak language other than Kenyan at home Not on file 03/18/2023 Want [...] Cerner Conversion Note - Historical Provider, - 05/13/2021 9:09 AM CDT [facility] Main OR PACU Summary Primary Physician: ROSALEE ZHENG MD-[facility] Finalized Date/Time: 05/13/21 12:28:53 Pt. Name: MORAIMA LOYA /Sex: 1965 Female Med Rec #: [id number] Physician: ROSALEE ZHENG MD-[facility] Financial #: [id number] Pt. Type: I Room/Bed: [facility] Admit/Disch: 05/13/21 06:34:00 - Institution: [facility] Main OR PACU I Case Times Entry 1 In PACU I 05/13/21 11:03:00 Ready for PACU 05/13/21 12:25:00 Discharge Discharge from PACU 05/13/21 12:25:00 I Last Modified By: ANTONINA KUHN RN 05/13/21 12:28:43 [facility] Main OR PACU I Case Times Audit 05/13/21 12:28:43 Paying Teller: TIA Modifier: BRANDEP <+> 1 Ready for PACU Discharge <+> 1 Discharge from PACU I Finalized By: ANTONINA KUHN, RN Document Signatures Signed By: ANTONINA KUHN RN 05/13/21 12:28 Electronically signed by [facility] Conversion Traffic Control Technician Cerner at 06/16/2022 11:13 AM CDT documented in this encounter Plan of Treatment Not on file documented as of this encounter Visit Diagnoses Not on filedocumented in this encounter Care Teams Blue Leather Setter Relationship Specialty Start Date End Date Saima Dorman, ENGRAVER SEALS [address] [address] PCP - General Nurse Practitioner 12/26/21 documented as of this encounter
--- OUTSIDE RECORDS SUMMARY | 2024-09-19 15:39 | XMS_ITS | Encounter Summary ---
Author Organization [employer] ([place], [place], [place], [place]) Address [address] [place] [address] Care Team Providers Care Client Services Representative Name Role Phone Saima Dorman APRN Primary Care Provider [phone] Encounter Details Date Type Department Care Team (Late st Contact Info) Description 05/14/[address] [facility] Family Medicine [address] [place] [address] ProviderKarena MD [address] [place] [address] Social History Tobacco Use Types [...] Date Juventino rded Speak language other than Bulgarian at home Not on file 03/18/2023 Want [...] Note - Historical Provider, - 05/14/2021 10:00 AM CDT Pain Assessment Entered On: 05/14/2021 12:27 EDT Performed On: 05/14/2021 10:45 EDT by Sherly Velazquez LPN-LVN-PATIENT CARE BEDSIDE Intervention Information: acetaminophen Performed by Sherly Velazquez LPN-LVN-PATIENT CARE BEDSIDE on 05/14/2021 09:45:00 EDT acetaminophen,650mg Oral Pain Assessment Pain Assessment : Follow-up assessment Pain Scale Goal : 4 Pain Scale Used : 0-10 Scale Sherly Velazquez LPN-LVN-PATIENT CARE BEDSIDE - 05/14/2021 12:27 EDT Pain Scale Intensity : 3 Sherly Velazquez LPN-LVN-PATIENT CARE BEDSIDE - 05/14/2021 12:27 EDT Image 4 - Images currently included in the form version of this document have not been included in the text rendition version of the form. documented in this encounter Plan of Treatment Not on file documented as of this encounter Visit Diagnoses Not on filedocumented in this encounter Care Teams Client Services Representative Relationship Specialty Start Date End Date Saima Dorman, CHRISTI [address] [phone] PCP - General Nurse Practitioner 12/26/21 documented as of this encounter
--- OUTSIDE RECORDS SUMMARY | 2024-09-19 15:39 | XMS_ITS | Encounter Summary ---
Author Organization [employer] ([place], [place], [place], [place]) Address [address] [place] [address] Care Team Providers Care It Auditor Name Role Phone Yessica Dorman APRN Primary Care Provider [phone] Encounter Details Date Type Department Care Team (Late st Contact Info) Description 05/14/2021 Transcribed Document [facility] Neurology - [employer] [facility] [address] [facility] [address] Rosalee Zheng MD [facility] [place], [place] [address] Social History Tobacco Use Types Packs/Day Years [...] Date Juventino rded Speak language other than Zambian at home Not on file 03/18/2023 Want [...] as of this encounter Miscellaneous Notes * Teresa Conversion Note - Rosalee Zheng MD - 05/14/2021 5:05 PM EDT Patient: MORAIMA LOYA Age: 56 Years Sex: Female : 1965 Admit Date 05/13/2021 06:34 Discharge Date 05/15/21 Primary Care Provider YESSICA DORMAN APRN-FAM Discharge Diagnosis Lumbar radiculopathy 05/14/2021 M54.16 ICD-10-CM Procedures SN - Proc - Procedure: MIS Posterior Fusion CT Guided (05/13/21 09:37:27) Studies none Reason for Hospitalization Mrs. Loya is a 56-year-old female with a L4-5 spondylolisthesis appreciated on the MRI. She has significant facet widening suggesting instability.She has already tried and failed multiple conservative treatment including medication, physical therapy, pain management. thought she was a good candidate for a minimally invasive L4-5 transforaminal lumbar interbody fusion. We described the procedure in detail. We discussed the risks and benefits of the operation. Specific risks that we discussed included general anesthesia, infection, spinal fluid leakage and adjacent level issues in the future. Hospital Course On 05/13/2021 the patient was brought to the operating room after informed consent had been obtained and Dr. Rosalee Zheng performed an L4-L5 minimally invasive TLIF. The patient tolerated the procedure well was transferred to the recovery room On 05/14/2021, postop day 1,Patient doing very well this morning. She does feel some relief of lower extremity pain. Expected incisional pain. She walked very well down the alvares with physical therapy yesterday and feels comfortable ambulating alone. Voiding appropriately. No bowel movement but is passing gas. Because the patient is doing as expected postoperatively she is cleared for discharge home today. Discussed all postop care and follow-up with her. We will see in 2 weeks for staple removal We did receive a call later today that this patient was very lethargic and also on 4 L of oxygen. They believed it was due to some of her pain medications that they stop the Dilaudid and oxycodone. We gave the okay for them to keep her 1 more night and we will check on her tomorrow. Did already change her home pain medication to [place] instead of Percocet. on 05/15/21, post op day 2 ,Patient doing much better today. Still on 2 L of oxygen via nasal cannula but is much more alert. We did switch her pain medication around. She is no longer on oxycodone or Dilaudid. We did also give her [place] to go home with instead of Percocet. Assuming patient does well with physical therapy today she can go home later this afternoon. Discussed all postop care and follow-up yesterday with the patient Vital Signs T: 36.8 ??C TMIN: 36.4 ??C TMAX: 36.8 ??C HR: 83(Monitored) RR: 17 BP: 134/69 SpO2: 98% Oxygen Settings (Last) Oxygen Therapy Mode: Nasal cannula (05/14/21 09:42:00) Oxygen Flow Rate: 2 Liter/Min (05/14/21 09:42:00) Physical Exam Alert and oriented x3 Patient sitting comfortably in bed Incision sites both dry, clean, intact There is some bruising around both incision sites which is not abnormal 5 out of 5 plantar flexion, dorsiflexion, hip flexion bilaterally Discharge Disposition Home Discharge Follow Up ROSALEE ZHENG - 09:15 AM ROSALEE ZHENG MD-[facility] - 02:00 PM Discharge Medications (20) Active buPROPion 150 mg, Oral, Daily cyclobenzaprine 10 mg, PRN, Oral, TID dilTIAZem 240 mg, Oral, Daily DULoxetine 30 mg, Oral, BID Dupixent 200 mg, SubCutaneous, [id number] Lasix 40 mg, Oral, Daily levocetirizine 5 mg, Oral, Daily losartan 50 mg, Oral, Daily Lunesta 2 mg, Oral, At Bedtime Lyrica 200 mg, Oral, BID meloxicam 15 mg, Oral, Daily Milk Thistle oral capsule 1 Cap, Oral, Daily montelukast 10 mg, Oral, Daily [place] 7.5 mg-325 mg oral tablet 1 Tab, PRN, Oral, Q4H promethazine 25 mg, PRN, Oral, Q6H Protonix 40 mg, Oral, Daily rosuvastatin 5 mg, Oral, At Bedtime Spiriva , Inhalation, Daily spironolactone 25 mg, Oral, Daily Symbicort 160 mcg-4.5 mcg/inh inhalation aerosol 2 Puff, Inhalation, BID Code Status Start: 05/13/21 10:40:00 EDT, Full Code, Continuous Order Condition on Discharge stable Consulting Physicians ROSALEE LY MD-ANS DIAMANTE BAILEY MD-INT - adding to list Current Diet Order Diet, Adult - Ordered -- Start: 05/13/21 17:23:00 EDT, Regular Diet Patient Discharge Summary Orders Discharge Activity: No strenuous activitiesNo lifting over 10 poundsKeep incision site dry and cleanNo submerging wound for 1 monthNo NSAIDs for 2 monthsNo bending, twisting, Discharge Activity: No strenuous activities Follow Up Labs/Studies Follow-up in 2 weeks for staple removal in 1 month with AP lateral lumbar x-rays Pending Labs Ordered CBC w/ Auto Diff Specimen Type: Blood, AM Draw collect, 05/14/21 4:00:00 EDT, Daily, Lab Collect, Spondylolisthesis of lumbar region BMP Basic Metabolic Panel Specimen Type: Blood, AM Draw collect, 05/14/21 4:00:00 EDT, Daily, Lab Collect, Spondylolisthesis of lumbar region Preliminary Culture Urine Specimen Type: Urine, Clean Catch, Routine collect, Collected, 05/12/21 11:29:00 EDT, 1-Time, Stop: 05/12/21 11:29:00 EDT, Nurse Collect documented in this encounter Plan of Treatment Not on file documented as of this encounter Visit Diagnoses Not on filedocumented in this encounter Care Teams It Auditor Relationship Specialty Start Date End Date Yessica Dorman, NAVAL MARINE ENGINEER [address] [phone] PCP - General Nurse Practitioner 12/26/21 documented as of this encounter
--- OUTSIDE RECORDS SUMMARY | 2024-09-19 15:39 | XMS_ITS | Encounter Summary ---
Author Organization [employer] ([place], [place], [place], [place]) Address [address] [place] [address] Care Team Providers Care Rehab Technician Name Role Phone Saima Dorman APRN Primary Care Provider Reason for Referral * Flouroscopy (Routine) - Closed Specialty Diagnoses / Procedures Referred By Contac t Referred To Contact Diagnoses Chronic respiratory failure with hypoxia (HCC) Procedures [place] sniff test Leanne Pearl PA-C [address] [address] Phone: tel: fax: Referral ID Status Reason Start Date Expiration Date Visits Re quested Visits Authorized [id number] Closed 11/11/2023 11/10/2024 1 1 Encounter Details Date Type Department Care Team (Late st Contact Info) Description 11/11/2023 Outside Orders [facility] Central Scheduling [address] [place] [address] Leanne Pearl PA-C [address] [address] Chronic respiratory failure with hypoxia (HCC) (Primary Dx) Social History Tobacco Use Types Packs/Day Years Used Date Smoking Tobacco: Never Passive Smoke Exposure: Never Smokeless Tobacco: Never Alcohol Use Standard Drinks/Week Comments Not Currently 0 (1 standard drink = 0.6 oz pur e alcohol) rarely Food Insecurity Answer Date Recorded Food run [...] Date Juventino rded Speak language other than Sierra Leonean at home Not on file 03/18/2023 Want help with school or training Not on file 03/18/2023 Substance Use Answer Date Recorded Used prescription meds for non-medical reasons N ot on file 03/18/2023 Used illegal drugs past 12 months Not on file 03/18/2023 Comments No Sex and Gender Information Value Date Recorded Sex Assigned at Not on file Legal Sex Female 5:23 PM CDT Gender Identity Not on file Sexual Orientation Not on file documented as of this encounter Plan of Treatment Not on file documented as of this encounter Results * [place] sniff test (11/22/2023 12:03 PM EDT) Anatomical Region Laterality Modality Lung, Chest X-Ray 11/22/2023 12:2 5 PM EDT Impressions 11/22/2023 2:41 PM EDT Normal diaphragmatic motion. Images reviewed, interpreted, and dictated by Dr. Cintia Morales. Transcribed by Pia Guajardo PA-C. Narrative 11/22/2023 2:41 PM EDT SNIFF TEST HISTORY: Chronic shortness of breath. FINDINGS: Bibasilar atelectasis is noted. The patient's diaphragmatic movement was evaluated under fluoroscopy. There is elevation of the right hemidiaphragm. There was bilateral symmetrical downward excursion of the diaphragms. No paradoxical movement was noted with either diaphragm. Fluoroscopy Time: 0.6 minutes Radiation dose in reference to Air-Kerma: 7 mGy. Dose Area Product (DAP): 3061 micoGray/m2. Number of Images: 7 images. Procedure Note Mor Morales MD - 11/22/2023 SNIFF TEST HISTORY: Chronic shortness of breath. FINDINGS: Bibasilar atelectasis is noted. The patient's diaphragmatic movement was evaluated under fluoroscopy. There is elevation of the right hemidiaphragm. There was bilateral symmetrical downward excursion of the diaphragms. No paradoxical movement was noted with either diaphragm. Fluoroscopy Time: 0.6 minutes Radiation dose in reference to Air-Kerma: 7 mGy. Dose Area Product (DAP): 3061 micoGray/m2. Number of Images: 7 images. IMPRESSION: Normal diaphragmatic motion. Images reviewed, interpreted, and dictated by Dr. Cintia Morales. Transcribed by Pia Guajardo PA-C. Leanne Pearl PA-C IMG FLUOROSCOPY ORDERABLES Aliza l Result documented in this encounter Visit Diagnoses Diagnosis Chronic respiratory failure with hypoxia (HCC)- Primary Chronic respiratory failure with hypoxia (HCC) documented in this encounter Care Teams Rehab Technician Relationship Specialty Start Date End Date DormanSaima patelCHRISTI [address] [address] PCP - General Nurse Practitioner 12/26/21 documented as of this encounter
--- OUTSIDE RECORDS SUMMARY | 2024-09-19 15:39 | XMS_ITS | Encounter Summary ---
Author Organization [employer] ([place], [place], [place], [place]) Address [address] [place] [address] Care Team Providers Care Boiler Tenders Supervisor Name Role Phone Saima Dorman APRN Primary Care Provider Encounter Details Date Type Department Care Team (Late st Contact Info) Description 05/14/2021 Transcribed Document [facility] Neurology - [employer] [facility] [address] [facility] [address] [address] Rosalee Zheng MD [facility] [place], [place] [id number] Social History Tobacco Use Types Packs/Day Years [...] Date Juventino rded Speak language other than Liberian at home Not on file 03/18/2023 Want [...] Miscellaneous Notes * Cerner Conversion Note - Rosalee Zheng MD - 05/14/2021 9:01 AM EDT Patient: MORAIMA LOYA Age: 56 Years Sex: Female : 1965 Assessment/Plan Postop day 1 L4-L5 TLIF ???Patient doing very well this morning. She does [...] see in 2 weeks for staple removal VTE Prophylaxis - Medical Sequential Compression Device Start: 05/13/21 10:40:00 EDT, Bilateral, Continuous Order (ROSALEE ZHENG) Sequential Compression Device Start: 05/13/21 7:43:00 EDT, Bilateral, Length: Knee High, Continuous Order (ROSALEE ZHENG) Subjective Some incisional pain. Some relief of lower extremity pain. Voiding okay. No bowel movement but is passing gas Vital Signs T: 36.4 ??C TMIN: 36.3 ??C TMAX: 36.7 ??C HR: 83(Monitored) RR: 16 BP: 138/67 SpO2: 98% HT: 157.48 cm WT: 109.55 kg BMI: 44.2 Oxygen Settings (Last) Oxygen Therapy Mode: Room air (05/14/21 06:04:00) Oxygen Flow Rate: 2 Liter/Min (05/14/21 01:00:00) Intake & Output Totals Last 24 Hours (7a-7a) Input Total: 2057.17 mL Output Total: 1250 mL Balance: 807.17 mL Physical Exam Alert and oriented x3 Patient sitting comfortably in bed Incision sites both dry, clean, intact. Some bruising around both incision sites but nothing abnormal 5 out of 5 plantar flexion, dorsiflexion, hip flexion bilaterally Distally neurovascularly intact in bilateral lower extremities Admitting diagnosis: Lumbar discopathy Discharge diagnosis: Lumbar to colopathy Procedure: L4-L5 minimally invasive TLIF Medications Benadryl, 25 mg= 1 Tab, Oral, Q6H, PRN buPROPion, 150 mg= 1 Tab, Oral, Daily Cepacol Sore Throat, 1 Lozenge, Oral, Q2H, PRN cloNIDine, 0.2 mg= 1 Tab, Oral, Q4H, PRN Dilaudid, 0.5 mg= 0.5 mL, IV Push, Q1H, PRN Dilaudid, 0.25 mg= 0.25 mL, IV Push, Q1H, PRN dilTIAZem, 240 mg= 1 Cap, Oral, Daily docusate sodium, 200 mg= 2 Cap, Oral, BID Dulcolax Laxative, 10 mg= 1 Supp, Rectal, BID, PRN Dulcolax Laxative, 10 mg= 2 Tab, Oral, BID, PRN DULoxetine, 30 mg= 1 Cap, Oral, BID Fleet Enema, 133 mL, Rectal, Daily, PRN Flexeril, 10 mg= 1 Tab, Oral, TID, PRN formoterol-mometasone 5 mcg-200 mcg/inh inhalation aerosol, 2 Puff, Inhalation, BID hydrALAZINE, 10 mg= 0.5 mL, IV Push, Q6H, PRN Lactated Ringers Injection intravenous solution 1,000 mL, 1000 mL, IntraVENous loratadine, 10 mg= 1 Tab, Oral, Daily Lyrica, 200 mg= 4 Cap, Oral, BID Milk of Magnesia 8% oral suspension, 30 mL, Oral, TID, PRN Milk thistle oral capsule, 1 Cap, Oral, Daily MiraLax, 17 Gram= 1 Packet, Oral, Daily montelukast, 10 mg= 1 Tab, Oral, QPM oxyCODONE, 5 mg= 1 Tab, Oral, Q4H, PRN oxyCODONE, 10 mg= 2 Tab, Oral, Q4H, PRN promethazine, 25 mg= 1 Tab, Oral, Q6H, PRN Protonix, 40 mg= 1 Tab, Oral, Daily rosuvastatin, 5 mg= 0.5 Tab, Oral, At Bedtime simethicone, 80 mg= 1 Tab, Oral, Q6H, PRN tiotropium, 2 Inhalation, Inhalation, Daily Tylenol, 650 mg= 2 Tab, Oral, Q4H Zofran, 4 mg= 2 mL, IV Push, Q4H, PRN zolpidem, 5 mg= 1 Tab, Oral, At Bedtime Lab Results Test Name Test Result Date/Time Sodium Level 134 mmol/L (Low) 05/14/2021 03:25 EDT Potassium Level 5.9 mmol/L (High) 05/14/2021 03:25 EDT Chloride Level 105 mmol/L 05/14/2021 03:25 EDT Carbon Dioxide Level 23 mmol/L 05/14/2021 03:25 EDT Anion Gap 12 05/14/2021 03:25 EDT Glucose Level 113 mg/dL (High) 05/14/2021 03:25 EDT Blood Urea Nitrogen 17 mg/dL 05/14/2021 03:25 EDT Creatinine Level 1.00 mg/dL 05/14/2021 03:25 EDT eGFR >60 mL/min/1.73m2 05/14/2021 03:25 EDT eGFR NonAfrican 57 mL/min/1.73m2 (Low) 05/14/2021 03:25 EDT Bun/Creatinine 17.0 05/14/2021 03:25 EDT Calcium Level 9.3 mg/dL 05/14/2021 03:25 EDT WBC 14.1 K/uL (High) 05/14/2021 03:25 EDT RBC 4.21 Million/uL 05/14/2021 03:25 EDT Hgb 11.5 g/dL 05/14/2021 03:25 EDT Hct 38.2 % 05/14/2021 03:25 EDT MCV 90.7 fL 05/14/2021 03:25 EDT MCH 27.3 pg 05/14/2021 03:25 EDT MCHC 30.1 Gram/dL (Low) 05/14/2021 03:25 EDT Platelet Count 304 K/uL 05/14/2021 03:25 EDT MPV 9.8 fL 05/14/2021 03:25 EDT RDW 15.0 % (High) 05/14/2021 03:25 EDT Neut % 86.1 % (High) 05/14/2021 03:25 EDT Neut # 12.16 K/uL (High) 05/14/2021 03:25 EDT Lymph % 6.1 % (Low) 05/14/2021 03:25 EDT Lymph # 0.86 x10(3)/uL (Low) 05/14/2021 03:25 EDT [place] % 6.8 % 05/14/2021 03:25 EDT [place] # 0.96 K/uL 05/14/2021 03:25 EDT Eos % 0.0 % 05/14/2021 03:25 EDT Eos # 0.00 x10(3)/uL 05/14/2021 03:25 EDT Baso % 0.3 % 05/14/2021 03:25 EDT Baso # 0.04 x10(3)/uL 05/14/2021 03:25 EDT Slide Review No 05/14/2021 03:25 EDT IG# 0.10 x10(3)/uL (High) 05/14/2021 03:25 EDT IG% 0.70 % (High) 05/14/2021 03:25 EDT documented in this encounter Plan of Treatment Not on file documented as of this encounter Visit Diagnoses Not on filedocumented in this encounter Care Teams Boiler Tenders Supervisor Relationship Specialty Start Date End Date Saima Dorman, EDITOR BOOK [address] [phone] PCP - General Nurse Practitioner 12/26/21 documented as of this encounter
--- OUTSIDE RECORDS SUMMARY | 2024-09-19 15:39 | XMS_ITS | Encounter Summary ---
Author Organization [employer] ([place], [place], [place], [place]) Address [address] [place] [address] Care Team Providers Care Casino Floor Supervisor Name Role Phone Saima Dorman APRN Primary Care Provider Encounter Details Date Type Department Care Team (Late st Contact Info) Description 05/14/2021 Transcribed Document [facility] [place] [facility] [address] [place] [address] ProviderKarena MD [address] [place] [address] Social History Tobacco Use Types [...] Date Juventino rded Speak language other than Cymro at home Not on file 03/18/2023 Want [...] Conversion Note - Historical Provider, - 05/14/2021 12:47 PM CDT UM Authorization Entered On: 05/14/2021 12:47 EDT Performed On: 05/14/2021 12:47 EDT by Robina Ruiz Rn-Utilization Review Primary Insurance Authorization Authorization and Policy Numbers : Insurance 1 Health Plan: [employer] Policy Number: [id number] Authorization Number: [id number] Insurance 2 Health Plan: MEDICARE Policy Number: [id number] Authorization Number: Insurance Primary Name : Eldon [id number] Authorization Status-Primary : Admit approved Authorization Number-Primary : [id number] Number of Days Authorized-Primary : 0 Day(s) Authorized Service Begin Date-Primary : 05/13/2021 EDT Authorized Service End Date-Primary : 05/13/2021 EDT Historical Authorization Comments-Primary : Comment 1: 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 CT guided on 05-13-21 per [facility] [employer] IP auth# [id number] 1 day approved (JOCELYN ARMSTRONG, Running Instructor 05/12/2021 15:44) Robina Ruiz Rn-Utilization Review - 05/14/2021 12:47 EDT Electronically signed by Katie [facility] Conversion Forging Die Sinker Teresa at 06/16/2022 10:49 AM CDT documented in this encounter Plan of Treatment Not on file documented as of this encounter Visit Diagnoses Not on filedocumented in this encounter Care Teams Casino Floor Supervisor Relationship Specialty Start Date End Date Saima Dorman, PUMP HOUSE OPERATOR [address] [place] [address] PCP - General Nurse Practitioner 12/26/21 documented as of this encounter
--- OUTSIDE RECORDS SUMMARY | 2024-09-19 15:39 | XMS_ITS | Encounter Summary ---
Author Organization [employer] ([place], [place], [place], [place]) Address [address] [place] [address] Care Team Providers Care Sales Representative Printing Paper Name Role Phone Saima Dorman APRN Primary Care Provider Encounter Details Date Type Department Care Team (Late st Contact Info) Description 05/13/2021 Transcribed Document [facility] [facility] [address] [address] [facility] [place], [place] [address] Social History Tobacco Use Types Packs/Day Years [...] Date Juventino rded Speak language other than Eritrean at home Not on file 03/18/2023 Want [...] Miscellaneous Notes * Cerner Conversion Note - Alejandro Bledsoe MD - 05/13/2021 7:35 AM EDT Patient: MORAIMA LOYA Age: 56 years Sex: Female : 1965 Associated Diagnoses: None Author: COMER, FLO Nelson APRN Chief Complaint pleasant 56 yo female here with her daughter for L 4-[address] Bledsoe. pt has had back and chavo LE pain for 4-5 years, failed conservative measures. Review of Systems Constitutional: morbid obesity. Eye: glasses. Ear/Nose/Mouth/Throat: Negative. Respiratory: Negative. Cardiovascular: Negative. Gastrointestinal: Negative. Genitourinary: Negative. Hematology/Lymphatics: Negative. Endocrine: Negative. Immunologic: Negative. Musculoskeletal: Back pain: Bilaterally, Radiating, chavo LE . Integumentary: Negative. Neurologic: Negative. Psychiatric: Negative. All other systems are negative Health Status Allergies: Allergic Reactions (Selected) Medium Penicillins- Rash., Allergies (1) Active Reaction penicillins Rash Current medications: (Selected) Inpatient Medications Ordered Cleocin HCl: 900 mg, 50 mL, 100 mL/Hr, IV Piggyback, PREOP Lactated Ringers Injection intravenous solution 1,000 mL: 20 mL/Hr, IntraVENous lidocaine 1% preservative-free injectable solution: 0.5 mL, IntraDermal, 1-Time triamcinolone acetonide 40 mg/mL injectable suspension 40 mg + ketorolac 15 mg + bupivacaine 0.25%...: 40 mg, 1 mL, 31.5 mL/Hr, Miscellaneous, 1-Time Documented Medications Documented DULoxetine: 30 mg, Oral, BID, 0 Refill(s) Dupixent: 200 mg, SubCutaneous, T1Etyhs, 0 Refill(s) Lasix: 40 mg, Oral, Daily, 0 Refill(s) Lunesta: 2 mg, Oral, At Bedtime, 0 Refill(s) Lyrica: 200 mg, Oral, BID, 0 Refill(s) Milk Thistle oral capsule: 1 Cap, Oral, Daily, 0 Refill(s) Protonix: 40 mg, Oral, Daily, 0 Refill(s) Spiriva: mcg, Inhalation, Daily, 0 Refill(s) Symbicort 160 mcg-4.5 mcg/inh inhalation aerosol: 2 Puff, Inhalation, BID, 0 Refill(s) buPROPion: 150 mg, Oral, Daily, 0 Refill(s) cyclobenzaprine: 10 mg, Oral, TID, PRN: for muscle relaxation, 0 Refill(s) dilTIAZem: 240 mg, Oral, Daily, 0 Refill(s) levocetirizine: 5 mg, Oral, Daily, 0 Refill(s) losartan: 50 mg, Oral, Daily, 0 Refill(s) meloxicam: 15 mg, Oral, Daily, 0 Refill(s) montelukast: 10 mg, Oral, Daily, 0 Refill(s) promethazine: 25 mg, Oral, Q6H, PRN: as needed for nausea/vomiting, 0 Refill(s) rosuvastatin: 5 mg, Oral, At Bedtime, 0 Refill(s) spironolactone: 25 mg, Oral, Daily, 0 Refill(s), Home Medications (19) Active buPROPion 150 mg, Oral, Daily cyclobenzaprine 10 mg, PRN, Oral, TID dilTIAZem 240 mg, Oral, Daily DULoxetine 30 mg, Oral, BID Dupixent 200 mg, SubCutaneous, [id number] Lasix 40 mg, Oral, Daily levocetirizine 5 [...] mcg/inh inhalation aerosol 2 Puff, Inhalation, BID , Medications (4) Active Scheduled: (3) clindamycin/D5w 900 mg 50 mL, IV Piggyback, PREOP lidocaine 1% *PF* inj 2 mL 0.5 mL, IntraDermal, 1-Time triamcinolone acet 40 mg + ketorolac 15 mg + bupivacaine 0.25% 30 mL + syringe 1 Each 40 mg 1 mL, Miscellaneous, 1-Time Continuous: (1) lactated ringers 1,000 mL 1,000 mL, IntraVENous, 20 mL/Hr PRN: (0) Problem list: All Problems Fatty liver / SNOMED CT 428237400 / Confirmed Sleep apnea / SNOMED CT 329831718 / Confirmed Pancreatitis / SNOMED CT 230045279 / Confirmed Hyperlipidemia / SNOMED CT 08461915 / Confirmed History of obstructive sleep apnea / IMO 43177766 / Confirmed High blood pressure / SNOMED CT 69790630 / Confirmed GERD - Gastro-esophageal reflux disease / SNOMED CT 5122004885 / Confirmed Fibromyalgia / SNOMED CT 369913250 / Confirmed Chronic constipation / SNOMED CT 595682061 / Confirmed Chronic CHF / SNOMED CT 267224818 / Confirmed Back pain / SNOMED CT 251377926 / Confirmed Asthma / SNOMED CT 399704052 / Confirmed Arthritis / SNOMED CT 8431810 / Confirmed, Active Problems (13) Arthritis Asthma Back pain Chronic CHF Chronic constipation Fatty liver Fibromyalgia GERD - Gastro-esophageal reflux disease High blood pressure History of obstructive sleep apnea Hyperlipidemia Pancreatitis Sleep apnea Histories Past Medical History: No active or resolved past medical history items have been selected or recorded. Family History: No family history items have been selected or recorded. Procedure history: bilateral knee replacement. LAPS W/VAGINAL HYSTERECTOMY > 250 GRAMS (28113). septal plasty. cholecysectomy. bladder sling. cortisone back injections. Social History Social & Psychosocial Habits Alcohol 05/12/2021 Alcohol Use History, Social Habits Yes Alcohol Use in Last Twelve Months Yes 05/12/2021 Alcohol Use in Last Twelve Months Yes Alcohol Use Frequency Rarely Substance Abuse 05/12/2021 Recreational Drug Use History No Recreational Drug Use Last 12 Months No Tobacco 05/12/2021 Smoking Status Never (less than 100 in l Smokeless Tobacco Status Never . Physical Examination VS/Measurements Vital Signs/Vital Measures 05/13/2021 7:00 EDT Systolic Blood Pressure 148 mmHg HI Diastolic Blood Pressure 69 mmHg Temperature Source Temporal artery scanning Temperature Mode Fahrenheit Temperature, Fahrenheit 97.1 Deg F Heart Rate Monitored 74 bpm Respiratory Rate 20 Breaths/Min Oxygen Saturation 96 % Oxygen Therapy Mode Room air 05/12/2021 12:14 EDT Blood Pressure Location Arm, right upper Blood Pressure Source Non-Invasive BP Device Blood Pressure Position Sitting Systolic Blood Pressure 138 mmHg Diastolic Blood Pressure 84 mmHg Temperature Source Temporal artery scanning Temperature Mode Fahrenheit Temperature, Fahrenheit 97.3 Deg F Clinical Temperature, C 36.3 Deg C Pulse Method Pulse Oximetry Peripheral Pulse Rate 94 bpm Respiratory Rate 22 Breaths/Min HI Oxygen Saturation 98 % Oxygen Therapy Mode Room air Oxygen Therapy Mode Room air , Vitals Signs (last 24 hrs) Last Charted Minimum Maximum Temp 97.1 (MAY 13 07:00) 97.1 (MAY 13 07:00) 97.3 (MAY 12 12:14) Mon HR 74 (MAY 13 07:00) 74 (MAY 13 07:00) 74 (MAY 13 07:00) Periph HR 94 (MAY 12 12:14) 94 (MAY 12 12:14) 94 (MAY 12 12:14) Resp Rate 20 (MAY 13 07:00) 20 (MAY 13 07:00) H 22 (MAY 12 12:14) SBP H 148 (MAY 13 07:00) 138 (MAY 12 12:14) H 148 (MAY 13 07:00) DBP 69 (MAY 13 07:00) 69 (MAY 13 07:00) 84 (MAY 12 12:14) SpO2 96 (MAY 13 07:00) 96 (MAY 13 07:00) 98 (MAY 12 12:14) , Measurements from flowsheet : Measurements 05/12/2021 12:14 EDT Height Source Chart Height Entry Format [place] Height/Length, MARSHALLESE (ft) 5 ft Height/Length MARSHALLESE 2 Inch CLINICALHEIGHT 157.48 cm Mather Body Weight 50 kg Weight Source Standing scale Weight Entry Format [place] Weight E[place]rean lb 241 lb CLINICALWEIGHT 109.55 kg Body Surface Area (BSA) 2.07 m2 Body Mass Index 44.2 kg/m2 >HHI General: Alert and oriented, No acute distress, morbid obesity. Eye: Extraocular movements are intact, glasses. HENT: Normocephalic, Normal hearing. Respiratory: Lungs are clear to auscultation, Respirations are non-labored. Cardiovascular: Normal rate, Regular rhythm, No murmur, No gallop, No edema. Musculoskeletal: painful ROM back, LLE weakness, uses cane occasionally . Integumentary: Warm, Dry, [place]. Neurologic: Alert, Oriented. Psychiatric: Cooperative, Appropriate mood & affect. Review / Management Results review: Labs (Last four charted values) WBC H 11.0 (MAY 12) HB 14.3 (MAY 12) HCT 44.9 (MAY 12) Plt H 410 (MAY 12) Na 136 (MAY 12) K 3.9 (MAY 12) Cl 103 (MAY 12) CO2 25 (MAY 12) BUN 20 (MAY 12) Cr H 1.30 (MAY 12) Glu R H 115 (MAY 12) Ca H 10.2 (MAY 12) , Lab results 05/12/2021 15:02 EDT SARS-CoV-2 (COVID19 PCR) Negative 05/12/2021 11:29 EDT Sodium Level 136 mmol/L Potassium Level 3.9 mmol/L Chloride Level 103 mmol/L Carbon Dioxide Level 25 mmol/L Anion Gap 12 Glucose Level 115 mg/dL HI Blood Urea Nitrogen 20 mg/dL CREATININE 1.30 mg/dL HI eGFR 51 mL/min/1.73m2 LOW eGFR NonAfrican 42 mL/min/1.73m2 LOW Bun/Creatinine 15.4 Calcium Level 10.2 mg/dL HI WBC 11.0 K/uL HI RBC 5.23 Million/uL HI Hgb 14.3 g/dL Hct 44.9 % MCV 85.9 fL MCH 27.3 pg MCHC 31.8 Gram/dL LOW Platelet Count 410 K/uL HI MPV 10.5 fL RDW 14.6 % Slide Review No . Impression and Plan Diagnosis 1. back pain with chavo LE radiculopathy 2. ZIGGY 3. OA 4. asthma 5. CHF 6. fatty liver 7. fibromyalgia 8. GERD 9. HTN 10. HLD. Condition: Stable. pt to proceed with surgery, plan to stay 2 nights. documented in this encounter Plan of Treatment Not on file documented as of this encounter Visit Diagnoses Not on filedocumented in this encounter Care Teams Sales Representative Printing Paper Relationship Specialty Start Date End Date Saima Dorman, CHRISTI [address] [phone] PCP - General Nurse Practitioner 12/26/21 documented as of this encounter
--- OUTSIDE RECORDS SUMMARY | 2024-09-19 15:40 | XMS_ITS | Encounter Summary ---
Author Organization [employer] ([place], [place], [place], [place]) Address [address] [place] [address] Care Team Providers Care Ui Application Developer Name Role Phone Saima Dorman APRN Primary Care Provider Encounter Details Date Type Department Care Team (Late st Contact Info) Description 05/13/2021 Transcribed Document [facility] [place] [facility] [address] [place] [address] ProviderKarena MD [address] [place] [address] Social History Tobacco Use Types [...] Date Juventino rded Speak language other than Mongolian at home Not on file 03/18/2023 Want [...] Notes * Cerner Conversion Note - Historical ProviderMD - 05/13/2021 11:10 AM CDT Pain Assessment Entered On: 05/14/2021 18:50 EDT Performed On: 05/14/2021 17:29 EDT by Sherly Velazquez LPN-LVN-PATIENT CARE BEDSIDE Intervention Information: oxyCODONE Performed by Sherly Velazquez LPN-LVN-PATIENT CARE BEDSIDE on 05/14/2021 16:29:00 EDT oxyCODONE,10mg Oral,Pain (Moderate 4-6) Pain Assessment Pain Assessment : Follow-up assessment Pain Scale Goal : 4 Pain Scale Used : 0-10 Scale Sherly Velazquez LPN-LVN-PATIENT CARE BEDSIDE - 05/14/2021 18:50 EDT Pain Scale Intensity : 4 Sherly Velazquez LPN-LVN-PATIENT CARE BEDSIDE - 05/14/2021 18:50 EDT Image 4 - Images currently included in the form version of this document have not been included in the text rendition version of the form. documented in this encounter Plan of Treatment Not on file documented as of this encounter Visit Diagnoses Not on filedocumented in this encounter Care Teams Ui Application Developer Relationship Specialty Start Date End Date Saima Dorman, CHRISTI [address] [phone] PCP - General Nurse Practitioner 12/26/21 documented as of this encounter
--- OUTSIDE RECORDS SUMMARY | 2024-09-19 15:40 | XMS_ITS | Encounter Summary ---
Author Organization [employer] ([place], [place], [place], [place]) Address [address] [place] [address] Care Team Providers Care Prosthetics Technician Name Role Phone Saima Dorman APRN Primary Care Provider Encounter Details Date Type Department Care Team (Late st Contact Info) Description 05/15/2021 Transcribed Document [facility] [place] Medicine [address] [place] [address] ProviderKarena MD [address] [place] [address] Social History Tobacco Use Types [...] Date Juventino rded Speak language other than Mexican at home Not on file 03/18/2023 Want [...] Cerner Conversion Note - Historical Provider, - 05/15/2021 3:37 PM CDT Discharge Summary, PT Entered On: 05/15/2021 15:39 EDT Performed On: 05/15/2021 15:37 EDT by AVA MENA, PT Discharge Summary Discharge Summary Provider Notified : Physical Therapy Reason for Discharge : Discharged from hospital Discharged to, Therapy : Home, with home health Discharge Equipment, PT : Other: wheels for St Wx she already has Discharge Summary Comment, PT : pt declined PTx this AM due to nausea , was asleep in PM, therefore last seen 05/14 and noted to be supervision for mobility, amb approx 80 ft with Supervsion and RWx NO STGs set NO LTGs met ( 0/4) AVA MENA, PT - 05/15/2021 15:37 EDT Stamping Operator Goals Mobility/Bed Mobility LTG PT Grid Goal #1 Goal #2 Activity : Supine to sit Sit to stand Assist : Independent, modified Independent, modified Equipment : Bed, hospital Walker, front wheel Date to Meet : 05/27/2021 EDT 05/27/2021 EDT Goal Status : Not met Not met AVA MENA, PT - 05/15/2021 15:37 EDT AVA MENA, PT - 05/15/2021 15:37 EDT Ambulation LTG Grid Goal #1 Device : Walker, front wheel Distance : 350 ft w/O2 sts >88% Assist : Independent, modified Date to Meet : 05/27/2021 EDT Goal Status : Not met AVA MENA, PT - 05/15/2021 15:37 EDT Stairs LTG Grid Goal #1 Device : Walker, front wheel Number of Steps : 1 Handrail(s) : No handrails Assist : Supervision or set-up Date to Meet : 05/28/2021 EDT Goal Status : Not met AVA MENA, PT - 05/15/2021 15:37 EDT documented in this encounter Plan of Treatment Not on file documented as of this encounter Visit Diagnoses Not on filedocumented in this encounter Care Teams Prosthetics Technician Relationship Specialty Start Date End Date Saima Dorman, MOLDER WAX BALL [address] [phone] PCP - General Nurse Practitioner 12/26/21 documented as of this encounter
--- OUTSIDE RECORDS SUMMARY | 2024-09-19 15:40 | XMS_ITS | Encounter Summary ---
Author Organization [employer] ([place], [place], [place], [place]) Address [address] [place] [address] Care Team Providers Care Transitional Care Liaison Name Role Phone Saima Dorman APRN Primary Care Provider [phone] Encounter Details Date Type Department Care Team (Late st Contact Info) Description 05/15/2021 Transcribed Document [facility] [place] [address] [place] [address] ProviderKarena MD [address] [place] [address] Social History Tobacco Use Types [...] Date Juventino rded Speak language other than Indian at home Not on file 03/18/2023 Want [...] Conversion Note - Historical Provider, - 05/15/2021 2:56 PM CDT Nursing Discharge Summary Entered On: 05/15/2021 14:57 EDT Performed On: 05/15/2021 14:56 EDT by Nia Danielle RN Discharge Documentation Discharge Instructions Reviewed With, Opportunity For Questions Given : Patient, Daughter Patient Education Completed : Yes Teaching Method : Explanation, Printed materials Teaching Evaluation : Verbalizes understanding Education Comment : Secure environment confirmed by vRN to protect patient privacy. Discussed appointmnets, meds, condions, diet, reccomendations and restrictions Nia Danielle RN - 05/15/2021 14:56 EDT Electronically signed by Katie [facility] Conversion Coremaking Machine Operator Cerner at 06/16/2022 11:08 AM CDT documented in this encounter Plan of Treatment Not on file documented as of this encounter Visit Diagnoses Not on filedocumented in this encounter Care Teams Transitional Care Liaison Relationship Specialty Start Date End Date Saima Dorman, KETTLE GIRL [address] [place] [address] PCP - General Nurse Practitioner 12/26/21 documented as of this encounter
--- OUTSIDE RECORDS SUMMARY | 2024-09-19 15:40 | XMS_ITS | Encounter Summary ---
Author Organization [employer] ([place], [place], [place], [place]) Address [address] [place] [address] Care Team Providers Care Extruder Operator Horizontal Name Role Phone Saima Dorman APRN Primary Care Provider Encounter Details Date Type Department Care Team (Late st Contact Info) Description 05/15/[address] [facility] Family Medicine [address] [place] [address] ProviderKarena MD [address] [place] [address] Social History Tobacco Use Types [...] Date Juventino rded Speak language other than Iranian at home Not on file 03/18/2023 Want [...] Conversion Note - Historical Provider, - 05/15/2021 10:25 AM CDT Attempt to Treat, PT Entered On: 05/15/2021 12:02 EDT Performed On: 05/15/2021 10:25 EDT by VAA MENA, PT Attempt to Treat Unable to Treat Due To : Patient Refusal Inability to Treat Comment : pt declined and asked can we do it later?? I don't feel well right now pt c/o nausea and RN informed will follow, likely discharge today Notification : RN/P:AVA Mack, PT - 05/15/2021 12:01 EDT documented in this encounter Plan of Treatment Not on file documented as of this encounter Visit Diagnoses Not on filedocumented in this encounter Care Teams Extruder Operator Horizontal Relationship Specialty Start Date End Date Saima Dorman, DIRECTOR MEDICAL [address] [place] [address] PCP - General Nurse Practitioner 12/26/21 documented as of this encounter
--- OUTSIDE RECORDS SUMMARY | 2024-09-19 15:40 | XMS_ITS | Encounter Summary ---
Author Organization [employer] ([place], [place], [place], [place]) Address [address] [place] [address] Care Team Providers Care Service Support Representative Name Role Phone Saima Dorman APRN Primary Care Provider Encounter Details Date Type Department Care Team (Late st Contact Info) Description 05/13/2021 Transcribed Document [facility] [place] Family Medicine [address] [place] [address] ProviderKarena MD [address] [place] [address] Social History Tobacco Use Types [...] Date Juventino rded Speak language other than Surinamese at home Not on file 03/18/2023 Want [...] Conversion Note - Historical Provider, - 05/13/2021 10:40 AM CDT Evaluation, Occupational Therapy Entered On: 05/14/2021 14:38 EDT Performed On: 05/14/2021 11:40 EDT by LOIS PERALTA OT Student General Information, OT Visit Type, OT : Initial evaluation Patient Orders : Order Date Order Ordering MD 05/13/2021 10:40 Occupational Therapy Evaluation and Treatme Ordered By: ROSALEE ZHENG MD-[facility] Active Diagnoses : 05/14/2021 12:00 Radiculopathy, lumbar region 05/13/2021 12:00 Spondylolisthesis, lumbar region Admission Date : 05/13/2021 06:34 Co-treated by, OT : blood bank assistant (FOREST RESOURCE SPECIALIST) Personal Devices : Personal Devices No Devices Recorded Assistive Devices : Assistive Devices No Devices Recorded Precautions in Place : Log roll precautions, Spinal Precautions LOIS PERALTA OT Student - 05/14/2021 14:38 EDT General Status Patient Received Status : Sitting edge of bed, Other: FOREST RESOURCE SPECIALIST in room Treatment Start Time : 05/14/2021 11:02 EDT RN/PCT Informed Comment : OSIEL willis Treatment End Time : 05/14/2021 11:40 EDT Treatment Time : 38 Minute(s) LOIS PERALTA OT Student - 05/14/2021 14:39 EDT History and Environment, OT Living Situation, Therapy : Home Patient Lives With : Spouse Persons Assisting Patient at Home : Alone Professional Skilled Services : None Persons Providing Information : Patient Home Equipment, Therapy : Bar, grab, Commode, Shower Equipment, Walker Home Setup : One story Bedroom Location : Main level Bathroom #1 Location : Main level Bathroom #1 Features : Toilet, Walk-In shower Stairs : Yes Stair Location(s) : Outside Outside Stairs, Number of Steps : 1 Railing Outside : No Ramp : No LOIS PERALTA OT Student - 05/14/2021 14:39 EDT Prior LOF Bathing, OT : Independent Prior LOF Bed Mobility : Independent Prior LOF Upper Body Dressing, OT : Independent Prior LOF Lower Body Dressing, OT : Independent Prior LOF Toileting : Independent Prior LOF Transfer : Independent Prior LOF Grooming, OT : Independent Prior LOF for IADLs, OT : Independent LOIS PERALTA OT Student - 05/14/2021 14:39 EDT Upper Extremity Right UE Active ROM : WFL Right UE Strength : WFL Left UE Active ROM : WFL Left UE Strength : WFL Upper Extremity Strength Impaired : No Right UE Strength : WFL Left UE Strength : WFL Fine Motor Coordination Impaired : LOIS Carrizales OT Student - 05/14/2021 14:39 EDT Self Care/Home Management, OT Self Feeding Assist Level, OT : Independent, modified Grooming Assist Level, OT : Independent, modified Bathing Assist Level, OT : Independent, modified Upper Body Dressing Assist Level, OT : Independent, modified Lower Body Dressing Assist Level, OT : Supervision or set-up Toileting Assist Level : Independent, modified Toilet Transfer Assist Level : Independent, LOIS Kaufman OT Student - 05/14/2021 14:39 EDT Functional Mobility Mobility Grid Sit to Stand : Supervision/set-up Bed to Chair : Rehab Modified independence Stand to Sit : Rehab Modified LOIS Roldan OT Student - 05/14/2021 14:39 EDT Cognition Assessment, OT Orientation : Oriented x 4 LOIS PERALTA OT Student - 05/14/2021 14:39 EDT Indication Assessment, OT Occupational Therapy Indicated : No Occupational Therapy Not Indicated : At prior level of function Interdisciplinary Consultation(s) Needed : LOIS Carrizales OT Student - 05/14/2021 14:39 EDT Plan of Care, OT OT Tx Plan/Goals Established w Patient : No Reason OT Treatment/Plan Not Established : Pt at PLOF LOIS PERALTA OT Student - 05/14/2021 14:39 EDT Treatment Note Subjective Comment : Pt was agreeable. Patient's Response to Treatment : Pt tolerated therapy session well. Additional Objective Information : Pt was found sitting EOB with FOREST RESOURCE SPECIALIST in room. Pt was given AE and education. Pt was supervision for transfer to [facility] via RWx. Pt was set up assistance for tolieting. Pt ambulated fxl household distance via RWx with Mod I. Pt was Min A to dress upper and lower body. Pt was left sitting EOB eating lunch with daughter in room and all needs met. Assessment : Pt is at PLOF and is safe for d/c from OT perspective. Plan for Treatment : Pt is safe for d/c from OT perspective. LOIS PERALTA OT Student - 05/14/2021 14:39 EDT Pain Assessment Pain Scaled Used : 0-10 Pain scale Pain Score Pre-Intervention : 3 LOIS PERALTA OT Student - 05/14/2021 14:39 EDT Image 1 - Images currently included in the form version of this document have not been included in the text rendition version of the form. Anticipated Discharge Needs, OT/PT Anticipated Discharge to : Home, with family care, Home, with home health Recommend Continued Therapy at Discharge : Yes LOIS PERALTA OT Student - 05/14/2021 14:39 EDT [place] OT Charges OT Selfcare/Hm Mgmt Ea 15 Min : 2 OT Eval Moderate Complexity : 1 LOIS PERALTA OT Student - 05/14/2021 14:39 EDT documented in this encounter Plan of Treatment Not on file documented as of this encounter Visit Diagnoses Not on filedocumented in this encounter Care Teams Service Support Representative Relationship Specialty Start Date End Date Saima Dorman, ADJUNCT SPANISH INSTRUCTOR [address] [phone] PCP - General Nurse Practitioner 12/26/21 documented as of this encounter
--- OUTSIDE RECORDS SUMMARY | 2024-09-19 15:40 | XMS_ITS | Encounter Summary ---
Author Organization [employer] ([place], [place], [place], [place]) Address [address] [place] [address] Care Team Providers Care Horse Shoer Name Role Phone Saima Dorman APRN Primary Care Provider Encounter Details Date Type Department Care Team (Late st Contact Info) Description 05/15/2021 Transcribed Document [facility] [address] [facility] [address] [address] Rosalee Zheng MD [facility] [place], [place] [id number] Social History Tobacco Use Types Packs/Day Years [...] Date Juventino rded Speak language other than Yemeni at home Not on file 03/18/2023 Want [...] Conversion Note - Rosalee Zheng MD - 05/15/2021 9:46 AM EDT Patient: MORAIMA LOYA Age: 56 Years Sex: Female : 1965 Assessment/Plan Postop day 2 L4-L5 MIS TLIF???Patient doing much better today. Still on 2 L of oxygen via nasal cannula but is much more alert. We did switch her pain medication around. She is no longer on oxycodone or Dilaudid. We did also give her [place] to go home with instead of Percocet. Assuming patient does well with physical therapy today she can go home later this afternoon. Discussed all postop care and follow-up yesterday with the patient VTE Prophylaxis - Medical Sequential Compression Device Start: 05/13/21 10:40:00 EDT, Bilateral, Continuous Order (ROSALEE ZHENG) Sequential Compression Device Start: 05/13/21 7:43:00 EDT, Bilateral, Length: Knee High, Continuous Order (ROSALEE ZHENG) Subjective No new complaints this morning. Minimal incisional pain and some relief of lower extremity pain already Vital Signs T: 36.7 ??C TMIN: 36.4 ??C TMAX: 36.8 ??C HR: 84(Monitored) RR: 18 BP: 158/80 SpO2: 94% Oxygen Settings (Last) Oxygen Therapy Mode: Nasal cannula (05/15/21 06:39:00) Oxygen Flow Rate: 2 Liter/Min (05/15/21 06:39:00) Intake & Output Totals Last 24 Hours (7a-7a) Input Total: 1323.33 mL Output Total: 1400 mL Balance: -76.67 mL Physical Exam Alert and oriented x3 Patient sitting comfortably in bed Incision sites dry, clean, intact. Still some bruising surrounding incisions which is okay 5-5 plantar flexion, dorsiflexion, hip flexion bilaterally Distally neurovascularly intact in all extremities Admitting diagnosis: Lumbar idiopathy Discharge diagnosis: Lumbar discopathy Procedure: L4-L5 MIS TLIF Medications Benadryl, 25 mg= 1 Tab, [...] montelukast, 10 mg= 1 Tab, Oral, QPM [place] 5 mg-325 mg oral tablet, 1 Tab, Oral, Q4H, PRN oxyCODONE, 5 mg= 1 Tab, Oral, Q4H, PRN promethazine, 25 mg= 1 Tab, Oral, Q6H, PRN Protonix, 40 mg= 1 Tab, Oral, Daily rosuvastatin, 5 mg= 0.5 Tab, Oral, At Bedtime simethicone, 80 mg= 1 Tab, Oral, Q6H, PRN tiotropium, 2 Inhalation, Inhalation, Daily Tylenol, 650 mg= 2 Tab, Oral, Q4H Zofran, 4 mg= 2 mL, IV Push, Q4H, PRN Lab Results Test Name Test Result Date/Time Sodium Level 139 mmol/L 05/15/2021 03:58 EDT Potassium Level 5.5 mmol/L (High) 05/15/2021 03:58 EDT Potassium Level 5.5 mmol/L (High) 05/14/2021 10:21 EDT Chloride Level 109 mmol/L 05/15/2021 03:58 EDT Carbon Dioxide Level 28 mmol/L 05/15/2021 03:58 EDT Anion Gap 8 (Low) 05/15/2021 03:58 EDT Glucose Level 95 mg/dL 05/15/2021 03:58 EDT Blood Urea Nitrogen 14 mg/dL 05/15/2021 03:58 EDT Creatinine Level 0.90 mg/dL 05/15/2021 03:58 EDT eGFR >60 mL/min/1.73m2 05/15/2021 03:58 EDT eGFR NonAfrican >60 mL/min/1.73m2 05/15/2021 03:58 EDT Bun/Creatinine 15.6 05/15/2021 03:58 EDT Calcium Level 8.9 mg/dL 05/15/2021 03:58 EDT WBC 10.7 K/uL (High) 05/15/2021 03:58 EDT RBC 3.80 Million/uL (Low) 05/15/2021 03:58 EDT Hgb 10.4 g/dL (Low) 05/15/2021 03:58 EDT Hct 34.7 % 05/15/2021 03:58 EDT MCV 91.3 fL 05/15/2021 03:58 EDT MCH 27.4 pg 05/15/2021 03:58 EDT MCHC 30.0 Gram/dL (Low) 05/15/2021 03:58 EDT Platelet Count 260 K/uL 05/15/2021 03:58 EDT MPV 10.2 fL 05/15/2021 03:58 EDT RDW 15.0 % (High) 05/15/2021 03:58 EDT Neut % 75.1 % (High) 05/15/2021 03:58 EDT Neut # 8.06 K/uL (High) 05/15/2021 03:58 EDT Lymph % 14.0 % (Low) 05/15/2021 03:58 EDT Lymph # 1.50 x10(3)/uL 05/15/2021 03:58 EDT [place] % 9.0 % 05/15/2021 03:58 EDT [place] # 0.97 K/uL 05/15/2021 03:58 EDT Eos % 0.8 % 05/15/2021 03:58 EDT Eos # 0.09 x10(3)/uL 05/15/2021 03:58 EDT Baso % 0.5 % 05/15/2021 03:58 EDT Baso # 0.05 x10(3)/uL 05/15/2021 03:58 EDT RBC Morphology Normal 05/15/2021 03:[address] Estimate Adequate 05/15/2021 03:58 EDT Slide Review Technologist 05/15/2021 03:58 EDT IG# 0.06 x10(3)/uL (High) 05/15/2021 03:58 EDT IG% 0.60 % 05/15/2021 03:58 EDT documented in this encounter Plan of Treatment Not on file documented as of this encounter Visit Diagnoses Not on filedocumented in this encounter Care Teams Horse Shoer Relationship Specialty Start Date End Date Saima Dorman, PHYSIOTHERAPIST'S ASSISTANT [address] [address] PCP - General Nurse Practitioner 12/26/21 documented as of this encounter
--- OUTSIDE RECORDS SUMMARY | 2024-09-19 15:40 | XMS_ITS | Encounter Summary ---
Author Organization [employer] ([place], [place], [place], [place]) Address [address] [place] [address] Care Team Providers Care Sanitarian Aide Name Role Phone Saima Dorman APRN Primary Care Provider Encounter Details Date Type Department Care Team (Late st Contact Info) Description 05/13/2021 Transcribed Document [facility] [address] [place] [address] ProviderKarena MD [address] [place] [address] Social History Tobacco Use Types [...] Date Juventino rded Speak language other than Sami at home Not on file 03/18/2023 Want [...] Conversion Note - Historical Provider, - 05/13/2021 6:34 AM CDT Admission History, Adult Entered On: 05/13/2021 13:17 EDT Performed On: 05/13/2021 13:00 EDT by Meme Hairston Rn Advance Directive Patient has Advance Directive *Q : No, patient refuses Advance Directive information Meme Hairston Rn - 05/13/2021 13:13 EDT Anesthesia/Transfusion History Family History of Anesthesia Reaction : No prior transfusion(s) Transfusion History : Prior anesthesia without reaction Family History of Anesthesia Reaction : None Meme Hairston Rn - 05/13/2021 13:13 EDT Functional Assessment Living Situation : Home Current Home Treatments : None Meme Hairston Rn - 05/13/2021 13:13 EDT General Info Want Family/Rep/Phys Notified of Admit : No Emergency Contact #1 : paola loya Emergency Contact #1 Emergency Contact #1 Relationship : daughter Emergency Contact #2 : 00 Emergency Contact #2 Phone Number : 00 Emergency Contact #2 Relationship : 00 Information Obtained From : Patient Primary Language : Sami Communication Barrier : None Advertising Supervisor Needed : No Meme Hairston Rn - 05/13/2021 13:13 EDT Fall Risk Scales ABCs Fall Injury Risk Identification : Bones, Surgery ABC Fall Injury Risk : Moderate to high injury risk MELENDEZ Hx Falls Immediate/Within 3 Months : No Melendez Secondary Diagnosis : Yes MELENDEZ Use of Ambulatory Aid : Bed rest/Nurse assist MELENDEZ IV Therapy or IV Access : Yes Melendez Gait/Transferring : Weak Melendez Mental Status : Oriented to own ability Melendez Fall Risk Score : 45 MELENDEZ Fall Scale Risk Level : 25-45 Medium Risk [place] Fall Interventions : Adequate lighting, Assistive devices within reach, Bed in low position, Call device within reach, Fall prevention handout/education per facility policy, Frequent orientation to call device, Frequent orientation to surroundings, Hourly comfort/safety rounds, Non-slip footwear, Personal items within reach, Reinforced to call for assistance before getting out of bed, Room free of clutter/spills, Upper side-rails up, Wheels locked, Wires/Cords secured Fall Moderate to High Risk Interventions : Fall contract/letter per facility policy, Patient room close to nurses station, Supervise toileting as indicated, Transport methods appropriate to patient, Visual cues in place Meme Hairston Rn - 05/13/2021 13:13 EDT Fall Risk Education Grid Assistive Equipment Use : Verbalizes understanding Bed Height/Stabilization : Verbalizes understanding Environmental Management : Verbalizes understanding Fall Contract/Letter : Verbalizes understanding Fall Prevention Protocol : Verbalizes understanding Nonskid Footwear Use : Verbalizes understanding Safety Aids : Verbalizes understanding Siderails use/risks : Verbalizes understanding Staff Responsiveness : Verbalizes understanding Symptom Identification & Action Plan *Q : Verbalizes understanding Transfer/Mobility Techniques : Verbalizes understanding Urinal/Bedpan Availability : Verbalizes understanding Wait for Assistance : Verbalizes understanding Meme Hairston Rn - 05/13/2021 13:13 EDT Barriers to Learning : None evident Individuals Taught : Patient, Spouse, Child Readiness to Learn : Cooperative Baseline Knowledge of Topic : Good Teaching Method : Explanation Learning Style Preferences Family : Demonstration, Printed materials Learning Style Preferences Patient : Demonstration, Printed materials Teaching Evaluation : Verbalizes understanding Fall Risk Scale Calc Temp : 0 Meme Hairston Rn - 05/13/2021 13:13 EDT Health Histories Smoking Status : Never (less than 100 in lifetime; none in last 30 days) Smokeless Tobacco Status : Never Implant/Device Type, Mounter Automatic and Model : bilateral knees Meme Hairston Rn - 05/13/2021 13:13 EDT Social History (As Of: 05/13/2021 13:17:09 EDT) Tobacco: Never (less than 100 in lifetime) Smoking Status. Never Smokeless Tobacco Status. (Last Updated: 05/12/2021 12:15:20 EDT by ELISA GRAY, OSIEL) Alcohol: Alcohol Use History Yes. Use in Last 12 Months: Yes. (Last Updated: 05/12/2021 12:15:30 EDT by ELISA GRAY, RN) Use in Last 12 Months: Yes. Alcohol Use Frequency Rarely. (Last Updated: 05/12/2021 12:16:01 EDT by ELISA GRAY, RN) Substance Abuse: Drug Use Hx: No. Use in Last 12 Months: No. (Last Updated: 05/12/2021 12:16:07 EDT by ELISA GRAY RN) Height and Weight, Clinical Dosing Height Source : Chart Height Entry Format : Nolan Height, Feet : 5 ft(Converted to: 152 cm, 60 Inch) Height, Inches : 2 Inch(Converted to: 0 ft 2 Inch, 5.08 cm) Clinical Height : 157.48 cm Weight Source : Standing scale Weight Entry Format : Nolan Clinical Dosing Weight : 109.55 kg Weight, Pounds : 241 lb Body Surface Area (BSA) : 2.07 m2 Body Mass Index : 44.2 kg/m2 (>HHI) [place] Body Weight : 50 kg Meme Hairston Rn - 05/13/2021 13:13 EDT Infectious Disease History Does patient have symptoms of COVID-19? : No Has the Patient Been Tested for COVID-19 in the last 14 days? : Yes, Patient stated results pending Does the Patient state known exposure to a COVID-19 positive case in the last 14 days? : No Patient Vaccinated for COVID-19 : Fully vaccinated Meme Hairston Rn - 05/13/2021 13:13 EDT Infectious Disease Risk Screening Grid Cough < 2 wks of unknown origin : NO Cough > 2 weeks : NO Blood in Sputum : NO Fever or self-reported Fever : NO Rash of unknown origin : NO Headache : NO Stiff neck : NO Night Sweats : NO Unexplained Weight Loss : NO Diarrhea (3 episode per day) : NO Meme Hairston Rn - 05/13/2021 13:13 EDT Physical contact outside [place] in the last 30 days : No Hospitalized in Foreign Country : No Infectious Disease History : Chicken pox/Shingles INF Disease TB Screening Calc : 0 INF Disease Recent Travel Calc : 0 Meme Hairston Rn - 05/13/2021 13:13 EDT Influenza Vaccine Asmt, Adult Previous Vaccines from Immunization Schedule : Previous Vaccines and Immunizations SARS-CoV-2 (COVID-19) mRNA-1273 vaccine: 0 unknown unit (07/09/20 00:00:00) SARS-CoV-2 (COVID-19) mRNA-1273 vaccine: 0 unknown unit (06/10/20 00:00:00) Influenza Immunization, Current Season : No Inactivated Flu Vaccine Contraindications : No contraindications to inactivated influenza vaccine Transplant Workup/Recent Transplant : No Order for Influenza Vaccine : Declined Vaccination Meme Hairston Rn - 05/13/2021 13:13 EDT Pneumococcal Vaccine Previous Vaccines from Immunization Schedule : Previous Vaccines and Immunizations SARS-CoV-2 (COVID-19) mRNA-1273 vaccine: 0 unknown unit (07/09/20 00:00:00) SARS-CoV-2 (COVID-19) mRNA-1273 vaccine: 0 unknown unit (06/10/20 00:00:00) Pneumonia Immunization Received : Unknown Pneumococcal Risk Assessment < Age 65 : None Meme Hairston Rn - 05/13/2021 13:13 EDT Order Details Patient Needs Meds Crushed/Liquid : No Meme Hairston Rn - 05/13/2021 13:13 EDT Nutrition History Eating Poorly Due to Decreased Appetite : No Unplanned Weight Loss in Past 3-6 Months : No Malnutrition Screening Tool Total(mal) : 0 Malnutrition Screening Tool Risk Level : Patient not at risk Meme Hairston Rn - 05/13/2021 13:13 EDT [place] Suicide Severity Rating Scale (C-SSRS) CSSRS Past Month Wish to be : No CSSRS Past Month Suicidal Thoughts : No CSSRS Lifetime Suicide Behavior : No Suicide Severity Rating Score : 0 Suicide Severity Rating : No Additional Care Required at this time Meme Hairston Rn - 05/13/2021 13:13 EDT Psychosocial History Do You Have a History of the Following? : Depression Currently in Unsafe Situation : No Meme Hairston Rn - 05/13/2021 13:13 EDT Sleep Apnea Risk Assmt BiPAP/CPAP Ordered for Home Use : Yes Hx of Obstructive Sleep Apnea Diagnosis : Yes BiPAP/CPAP Used at Home : Yes Age over 50 Years Old : Yes Gender Male : No Meme Hairston Rn - 05/13/2021 13:13 EDT Valuables and Belongings Valuables and Belongings : Clothing, Personal items Clothing : Common streetwear Clothing Disposition : Bedside Personal Items : Cell phone Personal Items Disposition : Bedside Meme Hairston Rn - 05/13/2021 13:13 EDT documented in this encounter Plan of Treatment Not on file documented as of this encounter Visit Diagnoses Not on filedocumented in this encounter Care Teams Sanitarian Aide Relationship Specialty Start Date End Date Saima Dorman, CHRISTI [address] [phone] PCP - General Nurse Practitioner 12/26/21 documented as of this encounter
--- OUTSIDE RECORDS SUMMARY | 2024-09-19 15:40 | XMS_ITS | Encounter Summary ---
Author Organization [employer] ([place], [place], [place], [place]) Address [address] [place] [address] Care Team Providers Care Servicing Rep Name Role Phone Saima Dorman APRN Primary Care Provider [phone] Encounter Details Date Type Department Care Team (Late st Contact Info) Description 05/13/2021 Transcribed Document [facility] Family Medicine [address] [place] [address] ProviderKarena MD [address] [place] [address] Social History Tobacco Use Types [...] Date Juventino rded Speak language other than British at home Not on file 03/18/2023 Want [...] Conversion Note - Historical Provider, - 05/13/2021 12:18 PM CDT Meds to Bed Enrollment Entered On: 05/14/2021 10:16 EDT Performed On: 05/13/2021 12:18 EDT by Iavn Boyer Automation Tester Cert Lead Meds to Bed Enrollment Patient Enrollment Decision: : No/do not enroll in meds to bed program Reason for Declining Meds to Bed Program: : Prefer to use home pharmacy Ivan Boyer Automation Tester Cert Lead - 05/14/2021 10:16 EDT documented in this encounter Plan of Treatment Not on file documented as of this encounter Visit Diagnoses Not on filedocumented in this encounter Care Teams Servicing Rep Relationship Specialty Start Date End Date Saima Dorman, SALES TRAINING MANAGER [address] [phone] PCP - General Nurse Practitioner 12/26/21 documented as of this encounter
--- OUTSIDE RECORDS SUMMARY | 2024-09-19 15:40 | XMS_ITS | Encounter Summary ---
Author Organization [employer] ([place], [place], [place], [place]) Address [address] [place] [address] Care Team Providers Care Imaging Services Director Name Role Phone Saima Dorman APRN Primary Care Provider [phone] Encounter Details Date Type Department Care Team (Late st Contact Info) Description 05/13/2021 Transcribed Document [facility] [place] [facility] [address] [place] [address] ProviderKarena MD [address] [place] [address] Social History Tobacco Use Types [...] Date Juventino rded Speak language other than Hungarian at home Not on file 03/18/2023 Want [...] Historical Provider, - 05/13/2021 9:09 AM CDT [facility] Main OR IntraOp Summary Primary Physician: ROSALEE ZHENG MD-SNU Finalized Date/Time: 05/14/21 12:30:38 Pt. Name: MORAIMA LOYA /Sex: 1965 Female Med Rec #: [id number] Physician: ROSALEE ZHENG MD-SNU Financial #: [id number] Pt. Type: I Room/Bed: [facility] Admit/Disch: 05/13/21 06:34:00 - Institution: [facility] IntraOp Case Attendance Entry 1 Entry 2 Entry 3 Case Attendee ROSALEE ZHENG Gordon, Mark, CRNA OTHER, ATTENDEE #1 JEB Role Performed Surgeon/Proceduralist, COOK SHIP/Nurse Slurry Control Tender Student First Time In 05/13/21 08:24:00 05/13/21 08:24:00 05/13/21 08:24:00 Time Out 05/13/21 10:59:00 05/13/21 10:59:00 05/13/21 10:59:00 Procedure MIS Posterior Fusion CT MIS Posterior Fusion CT MIS Posterior Fusion CT Guided Guided Guided Other Attendee RAYMON COTTON CRNA STUDENT Superficial Wound Closed By: Last Modified By: Chula Chamberlain, Chula Dumas, Chula Dumas Rn 05/13/21 11:00:00 05/13/21 11:00:00 05/13/21 11:00:00 Entry 4 Entry 5 Entry 6 Case Attendee ROSALEE LY Moore, Kimberly A, Leticia Hinkle MD-ANS Diagnostic Social Media Manager Role Performed Anesthesiologist of [facility], [facility] Rv Mechanic Record Time In 05/13/21 08:24:00 05/13/21 08:24:00 05/13/21 08:24:00 Time Out 05/13/21 10:59:00 05/13/21 10:59:00 05/13/21 10:59:00 Procedure MIS Posterior Fusion CT MIS Posterior Fusion CT MIS Posterior Fusion CT Guided Guided Guided Other Attendee Superficial Wound Closed By: Last Modified By: Chula Chamberlain, Chula Dumas, Chula Dumas Rn 05/13/21 11:00:00 05/13/21 11:00:00 05/13/21 11:00:00 Entry 7 Entry 8 Entry 9 Case Attendee OTHER, ATTENDEE #2 KARIN OLIVER PA LONG, [facility] Role Performed Vendor Physician vector control assistant Scrub, First Time In 05/13/21 08:24:00 05/13/21 08:24:00 05/13/21 08:24:00 Time Out 05/13/21 10:59:00 05/13/21 10:59:00 05/13/21 10:59:00 Procedure MIS Posterior Fusion CT MIS Posterior Fusion CT MIS Posterior Fusion CT Guided Guided Guided Other Attendee MIKE RUDD Superficial Wound Closed By: Last Modified By: Chula Chamberlain Rn Moore, Kimberly A, Rn Moore, Kimberly A, Rn 05/13/21 11:00:00 05/13/21 11:00:00 05/13/21 11:00:00 [facility] IntraOp Case Attendance Audit 05/13/21 11:00:00 Event Decorator And Designer: [id number] Modifier: [id number] <+> Time Out 1 <*> Procedure MIS Posterior Fusion CT Guided 2 <+> Time Out 2 <*> Procedure MIS Posterior Fusion CT Guided 3 <+> Time Out 3 <*> Procedure MIS Posterior Fusion CT Guided 4 <+> Time Out 4 <*> Procedure MIS Posterior Fusion CT Guided 5 <+> Time Out 5 <*> Procedure MIS Posterior Fusion CT Guided 6 <+> Time Out 6 <*> Procedure MIS Posterior Fusion CT Guided 7 <+> Time Out 7 <*> Procedure MIS Posterior Fusion CT Guided 8 <+> Time Out 8 <*> Procedure MIS Posterior Fusion CT Guided 9 <+> Time Out 9 <*> Procedure MIS Posterior Fusion CT Guided 05/13/21 09:37:28 Event Decorator And Designer: [id number] Modifier: [id number] <+> 1 Procedure 2 <*> Procedure MIS Posterior Fusion CT Guided 3 <*> Procedure MIS Posterior Fusion CT Guided 4 <*> Procedure MIS Posterior Fusion CT Guided 5 <*> Procedure MIS Posterior Fusion CT Guided 6 <*> Procedure MIS Posterior Fusion CT Guided 7 <*> Procedure MIS Posterior Fusion CT Guided 8 <*> Procedure MIS Posterior Fusion CT Guided 9 <+> Time In 9 <*> Procedure MIS Posterior Fusion CT Guided 05/13/21 09:25:08 Event Decorator And Designer: [id number] Modifier: [id number] <+> Time In 2 <*> Procedure MIS Posterior Fusion CT Guided 3 <+> Time In 3 <*> Procedure MIS Posterior Fusion CT Guided 4 <+> Time In 4 <*> Procedure MIS Posterior Fusion CT Guided 5 <+> Time In 5 <*> Procedure MIS Posterior Fusion CT Guided 6 <+> Time In 6 <*> Procedure MIS Posterior Fusion CT Guided 7 <+> Time In 7 <*> Procedure MIS Posterior Fusion CT Guided 8 <+> Time In 8 <*> Procedure MIS Posterior Fusion CT Guided <+> 9 Case Attendee <+> 9 Role Performed <+> 9 Procedure [facility] IntraOp Case Times Entry 1 Patient In Room Time 05/13/21 08:24:00 Out Room Time 05/13/21 10:59:00 Anesthesia Start Time 05/13/21 08:24:00 Stop Time 05/13/21 10:59:00 Surgery / Procedure Times Start Time 05/13/21 09:09:00 Stop Time 05/13/21 10:44:00 Last Modified By: Chula Chamberlain Rn 05/13/21 10:59:58 [facility] IntraOp Case Times Audit 05/13/21 10:59:58 Event Decorator And Designer: [id number] Modifier: [id number] <+> 1 Out Room Time <+> 1 Stop Time 05/13/21 10:44:33 Event Decorator And Designer: [id number] Modifier: [id number] <+> 1 Stop Time [facility] IntraOp Cautery Entry 1 Entry 2 ESU Identification Cautery Type Monopolar ESU BiPolar ESU Cautery Type Comments ID Number [id number] ID Type Hospital Number Hospital Number Cautery Settings Cut Setting 45 8 Coag Setting 45 45 Blend Setting Bipolar Setting Argon Setting Argon Bernard ESU Grounding Pad Ground Pad Type Adult Grounding Pad Type Comment Grounding Pad Site Left thigh Grounding Pad Site Comment Grounding Pad Chula Chamberlain Rn Applied By Grounding Pad Site Warm, dry and intact Skin Condition Before Cautery Site Skin Condition Before Comment Grounding Pad Site Unchanged Skin Condition After Cautery Site Skin Condition After Comment Last Modified By: Chula Chamberlain Rn Moore, Kimberly A, Rn 05/13/21 09:24:33 05/13/21 09:32:57 [facility] IntraOp Cautery Audit 05/13/21 09:32:57 Event Decorator And Designer: [id number] Modifier: [id number] <+> 2 Cautery Type <+> 2 Coag Setting <+> 2 Cut Setting <+> 2 ID Number <+> 2 ID Type [facility] IntraOp Communication Entry 1 Communication To Family/Significant other Comment START Communication By Chula Chamberlain Rn Date and Time 05/13/21 09:14:00 Last Modified By: Chula Chamberlain Rn 05/13/21 09:24:47 [facility] IntraOp Counts Verification Entry 1 Procedure MIS Posterior Fusion CT Guided Count Info Count Type Sponge, Sharps, Miscellaneous Counts Verification Baseline/pre-procedure Sequence Count Results Not Applicable Counts Performed By Count Performed By DEV ADLER ST (Scrub) Count Performed By Chula Chamberlain Rn (RN) Last Modified By: Chula Chamberlain Rn 05/13/21 09:25:18 [facility] IntraOp Counts Verification Audit 05/13/21 09:25:18 Event Decorator And Designer: [id number] Modifier: [id number] <*> Procedure MIS Posterior Fusion CT Guided 1 <+> Count Performed By (Scrub) [facility] IntraOp Counts Final Entry 1 Procedure MIS Posterior Fusion CT Guided Final Count Info Count Type Sponge, Sharps, Miscellaneous Counts Verification Skin Closure/end of Sequence procedure Count Results Correct, surgeon notified Counts Performed By Count Performed By DEV ADLER ST (Scrub) Count Performed By Chula Chamberlain Rn (RN) Last Modified By: Chula Chamberlain Rn 05/13/21 10:44:17 [facility] IntraOp Counts Final Audit 05/13/21 10:44:17 Event Decorator And Designer: [id number] Modifier: [id number] 1 <*> Procedure MIS Posterior Fusion CT Guided 1 <+> Count Performed By (Scrub) 1 <+> Count Performed By (RN) [facility] IntraOp Delays Entry 1 Delay Reason Surgeon late - no reason Duration 24 Minute(s) Last Modified By: Chula Chamberlain Rn 05/13/21 09:25:41 [facility] IntraOp Departure from OR Entry 1 Integumentary Assessment Integumentary WDL with patient Assessment WDL specific variances Patient's Normal SURGICAL INCISION BACK, Integumentary SKIN ABRASION LEFT THIGH Variance(s) Transfer/Handoff Transfer to PACU Phase I Handoff Method Bedside/Face to face, Phone call, Online nursing summary Post-op Transport Stretcher/Gurney Via Patient Transport Kenny Murphy CRNA, Accompanied by OTHER, ATTENDEE #1 Last Modified By: Chula Chamberlain Rn 05/13/21 09:27:31 [facility] IntraOp Dressing and Packing Entry 1 Type Dressing Location BACK Applied By KARIN OLIVER PA Other Comments COVERDERM, NEOSPORIN Last Modified By: Chula Chamberlain Rn 05/13/21 09:27:52 [facility] IntraOp Fire Risk Assessment Entry 1 Fire Info Surgical Site or 0- No Incision Above the Xyphoid Open O2 Source 0- No (Mask or Cannula) Available Ignition 1- Yes (ESU, Laser, Light Source) Fire Risk 1 Assessment Score Fire Score Fire Risk Yes Assessment Complete Fire Risk Chula Chamberlain Rn Assessment Verified By Fire Risk 05/13/21 09:09:00 Assessment Verified Date/Time Fire Risk Standard Fire Yes Safety Precautions Followed Last Modified By: Chula Chamberlain Rn 05/13/21 09:28:37 [facility] IntraOp General Case Secretary Of State 1 Case Information OR OR [facility] Case Level 1 Room Verified Yes Wound Class 1 - Clean Specialty Neurosurgery Anesthesia Type General ASA Class 3 Diagnosis Preop Diagnosis LUMBAR SPONDYLOLISTHESIS Postop Same As Preop No Postop Diagnosis SEE MD POST OP NOTES Wound Class Definitions Last Modified By: Chula Chamberlain Rn 05/13/21 09:30:48 [facility] IntraOp Implant Log Entry 1 Entry 2 Entry 3 Type Tissue Implant Tissue Implant Implant (Synthetic) (Biologic) (Biologic) Implant Log Implant Type Hardware Tissue Implant Type Other Other Implant BONE MATRX VIVIGEN BONE VIVIGEN FORMABLE CAGE T/PLIF [id number] [id number] Description Implant Quantity 1 1 1 Implant Site BACK BACK BACK Implant Identification Model Number Implant Identification Serial Number Implant [id number] Identification Lot Number Implant Lifenet:Lifenet Lifenet:Lifenet J&J:Depuy:Depuy Spine Identification Transplant Srv Transplant Srv [facility] Name: Implant [id number] Identification Catalog Number Implant Size Implant Has an Yes Expiration Date Implant Expiration 04/02/22 04/22/22 05/29/25 Date Wasted Radioactive Material Time Implanted Tissue Implant Continue for Tissue Implant Documentation Tissue [id number] Identification Number Graft Prep Per Yes Yes [facility] Instructions: Tissue Preparation Thawed Thawed Method: Reconstitution Solution: Reconstitution Solution Lot Number Reconstitution Solution Expiration Date: Thawing Solution SODIUM CHLORIDE 0.9% SODIUM CHLORIDE 0.9% Thawing Solution [id number] Lot Number Thawing Solution 05/31/23 05/31/23 Expiration Date Preparation Materials, Other Preparation Materials, Other Lot Number Preparation Materials, Other Expiration Date Tissue ROSALEE ZHENG, ROSALEE ZHENG, Prepared/Processed -SNU -SNU By [facility] Yes Yes Paperwork Completed Implant Type Comment VIVIGEN VIVIGEN Last Modified By: Chula Chamberlain Rn Moore, Kimberly A, Rn Moore, Kimberly A, Rn 05/13/21 10:01:33 05/13/21 10:01:33 05/13/21 10:01:33 Entry 4 Entry 5 Entry 6 Type Implant (Synthetic) Implant (Synthetic) Implant (Synthetic) Implant Log Implant Type Bone Cement Bone Cement Hardware Tissue Implant Type Implant CEMENT SPINAL [id number] (HIGH VELOSITY PRM-SCREW 6X45MM VIPER Identification CONFIDENCE-[id number] SPINAL CEMENT) PRIM POLYAX EXTEND TAB Description FEN BE TI F/5.5MM-[id number] Implant Quantity 1 1 4 Implant Site BACK BACK BACK Implant Identification Model Number Implant Identification Serial Number Implant [id number] Identification Lot Number Implant J&J:Depuy:Depuy Spine DEPUY SPINE Identification [facility] Name: Implant [id number] Identification Catalog Number Implant Size Implant Has an Yes Yes No Expiration Date Implant Expiration 12/29/22 03/31/23 Date Wasted Radioactive Material Time Implanted Tissue Implant Continue for Tissue Implant Documentation Tissue Identification Number Graft Prep Per [facility] Instructions: Tissue Preparation Method: Reconstitution Solution: Reconstitution Solution Lot Number Reconstitution Solution Expiration Date: Thawing Solution Thawing Solution Lot Number Thawing Solution Expiration Date Preparation Materials, Other Preparation Materials, Other Lot Number Preparation Materials, Other Expiration Date Tissue Prepared/Processed By [facility] Paperwork Completed Implant Type Comment Last Modified By: Chula Chamberlain Rn Moore, Kimberly A, Rn Moore, Kimberly A, Rn 05/13/21 10:52:45 05/13/21 10:52:45 05/13/21 10:52:45 Entry 7 Entry 8 Entry 9 Type Implant (Synthetic) Implant (Synthetic) Implant (Synthetic) Implant Log Implant Type Hardware Hardware Hardware Tissue Implant Type Implant MIS CIARRA PLY SCRW SET CIARRA SURG FENESTRATE CHRISTOPHE SPINE VIPER Identification [id number] Description Implant Quantity 4 1 2 Implant Site BACK BACK BACK Implant Identification Model Number Implant Identification Serial Number Implant Identification Lot Number Implant J&J:Depuy:Depuy Spine J&J:Depuy J&J:Depuy:Depuy Spine Identification [facility] Name: Implant [id number] Identification Catalog Number Implant Size Implant Has an No No No Expiration Date Implant Expiration Date Wasted Radioactive Material Time Implanted Tissue Implant Continue for Tissue Implant Documentation Tissue Identification Number Graft Prep Per [facility] Instructions: Tissue Preparation Method: Reconstitution Solution: Reconstitution Solution Lot Number Reconstitution Solution Expiration Date: Thawing Solution Thawing Solution Lot Number Thawing Solution Expiration Date Preparation Materials, Other Preparation Materials, Other Lot Number Preparation Materials, Other Expiration Date Tissue Prepared/Processed By Nurse [facility] Paperwork Completed Implant Type Comment Last Modified By: Chula Chamberlain Rn Moore, Kimberly A, Rn Moore, Kimberly A, Rn 05/13/21 10:52:45 05/13/21 10:52:45 05/13/21 10:52:45 [facility] IntraOp Implant Log Audit 05/13/21 10:52:45 Event Decorator And Designer: [id number] Modifier: [id number] <+> 4 Implant Identification Description <+> 4 Implant Identification Lot Number <+> 4 Implant Identification [facility] Name: <+> 4 Implant Expiration Date <+> 4 Implant Site <+> 4 Implant Quantity <+> 4 Implant Identification Catalog Number <+> 4 Implant Type <+> 4 Implant Has an Expiration Date <+> 4 Type <+> 5 Implant Identification Description <+> 5 Implant Identification Lot Number <+> 5 Implant Expiration Date <+> 5 Implant Site <+> 5 Implant Quantity <+> 5 Implant Type <+> 5 Implant Has an Expiration Date <+> 5 Type <+> 6 Implant Identification Description <+> 6 Implant Identification [facility] Name: <+> 6 Implant Site <+> 6 Implant Quantity <+> 6 Implant Identification Catalog Number <+> 6 Implant Type <+> 6 Implant Has an Expiration Date <+> 6 Type <+> 7 Implant Identification Description <+> 7 Implant Identification [facility] Name: <+> 7 Implant Site <+> 7 Implant Quantity <+> 7 Implant Identification Catalog Number <+> 7 Implant Type <+> 7 Implant Has an Expiration Date <+> 7 Type <+> 8 Implant Identification Description <+> 8 Implant Identification [facility] Name: <+> 8 Implant Site <+> 8 Implant Quantity <+> 8 Implant Identification Catalog Number <+> 8 Implant Type <+> 8 Implant Has an Expiration Date <+> 8 Type <+> 9 Implant Identification Description <+> 9 Implant Identification [facility] Name: <+> 9 Implant Site <+> 9 Implant Quantity <+> 9 Implant Identification Catalog Number <+> 9 Implant Type <+> 9 Implant Has an Expiration Date <+> 9 Type [facility] IntraOp Intraoperative Assessment Entry 1 Handoff Method Online nursing summary Valid History / Yes Physical in Chart Preoperative Yes Checklist Reviewed/Evaluated Allergies Reviewed Yes Patient is Latex No Sensitive Isolation Not applicable Precautions Noted Level of WDL Consciousness (WDL = Alert, Oriented to Person, Place, and Time) Skin Assessment No Verified Present Upon IVs Arrival to OR Prosthetic/Assistive Hardware Devices Intraoperative HARDWARE BILATERAL KNEES Assessment Comment Last Modified By: Chula Chamberlain Rn 05/13/21 09:31:10 [facility] IntraOp Intraoperative Equipment Entry 1 Type Equipment Equipment Equipment Forrest Suction System ID Number [id number] Setting ON Intraop Monitoring Antiembolic Devices Antiembolic Devices Sequential compression device, knee high Antiembolic Device Bilateral Location Antiembolic Device 22508 ID Number Antiembolic Device SCDS ON AND WORKING Setting PRIOR TO INDUCTION OF ANESTHESIA Scopes Photo/Video Documentation Last Modified By: Chula Chamberlain Rn 05/13/21 09:32:40 [facility] IntraOp Medication Admin Entry 1 Entry 2 Entry 3 Medication/Irrigant lidocaine 1% w/ Neosporin 15Gm ointment SPNG SURGFOAM epinephrine 1:100,000 - [id number] 30ml vial - [id number] Combo Med List Time Administered Route of LOCAL TO FIELD TOPICAL TO FIELD TO FIELD Administration Dose Dose Unit of Measure Volume Administered By ROSALEE ZHENG TUTT, MATTHEW PAIGE, TUTT, MATTHEW PAIGE, MD-SNU MD-SNU MD-SNU Procedure Irrigation Irrigant Volume In Irrigant Volume Out Last Modified By: Chula Chamberlain Rn Moore, Kimberly A, Rn Moore, Kimberly A, Rn 05/13/21 09:33:58 05/13/21 09:33:58 05/13/21 09:33:58 Entry 4 Entry 5 Entry 6 Medication/Irrigant thrombin 5000units vancomycin 1Gm vial - DR ZHENG INJECTION FROM topical powder - [id number] PHARMACY [id number] Combo Med List Time Administered Route of TO FIELD TO FIELD TO STERILE FIELD Administration Dose Dose Unit of Measure Volume Administered By ROSALEE ZHENG TUTT, MATTHEW PAIGE, TUTT, MATTHEW PAIGE, MD-SNU MD-SNU MD-SNU Procedure Irrigation Irrigant Volume In Irrigant Volume Out Last Modified By: Chula Chamberlain Rn Moore, Kimberly A, Rn Moore, Kimberly A, Rn 05/13/21 09:33:58 05/13/21 09:33:58 05/13/21 09:33:58 [facility] IntraOp Patient Positioning Entry 1 Procedure MIS Posterior Fusion CT Guided Body Position Prone Left Arm Position Secured on padded arm board Right Arm Position Secured on padded arm board Left Leg Position Elevated Right Leg Position Elevated Feet Uncrossed Yes Pressure Points Yes Checked Device Position PRONE, GARETH TABLE, PRONE FACE PILLOW, CHEST AND THIGH PADS, ARM PADS, ULNAR PADS BETWEEN FRAME AND ABDOMEN/BREAST, SAFETY STRAP ACROSS THIGHS, PILLOWS UNDER LEGS Positioned By ROSALEE ZHENG MD-SNU, Kenny Murphy, COOK SHIP, OTHER, ATTENDEE #1, Chula Chamberlain, Rn, KARIN OLIVER PA Position Verified Positioning Yes Verified by Anesthesia Positioning Yes Verified by Surgeon Last Modified By: Chula Chamberlain Rn 05/13/21 09:35:50 [facility] IntraOp Sign In Entry 1 Patient, Site, Yes Procedure Identified Surgical Consent Yes Confirmed Relevant Surgical Yes Documents Available Surgical Site N/A Marked by person performing procedure Anesthesia Machine Yes Check Completed Medication Checks Yes Completed Allergies Yes Airway Difficult Yes Airway/Aspiration Risk Difficult Yes Airway/Aspiration Intervention Equipment Available Blood Loss Risk Yes Blood Loss Yes Intervention Equipment Prepared and Ready Blood Identifiers Not applicable Verified Per Policy Hypothermia Risk Yes Warming Measures Yes Taken Last Modified By: Chula Chamberlain Rn 05/13/21 09:36:21 [facility] IntraOp Sign Out Entry 1 RN Confirmation Surgical Yes Procedure(s) Identified Instrument, Sponge Yes and Sharps Counts Correct/Documented Equipment Problems N/A Documented Specimen Labeled N/A Correctly Urinary Catheter N/A Documented in IView Wound Yes classification reviewed, verified and updated post case in both the General Case Data and Procedure segments Mustafa Patient Yes Recovery Concerns Reviewed with Anesthesia Provider, Surgeon and RN Mustafa Patient Yes Management Concerns Reviewed with Anesthesia Provider, Surgeon and RN Safety Checklist Yes Elements Complete? RN Sign Out Chula Chamberlain Rn Signature RN Sign Out 05/13/21 10:44:00 Signature Date/Time Plan of Care Outcome - Fire Risk OUTCOME STATEMENT: Goal met Patient is free from injury related to surgical fire Plan of Care Outcome - Pt Positioning OUTCOME STATEMENT: Goal met Absence of signs and symptoms of positioning injury. Plan of Care Outcome - Skin Prep OUTCOME STATEMENT: Goal met Intraoperative care is consistent with measures to prevent infection Plan of Care Outcome - Xray/Images OUTCOME STATEMENT: Goal met Absence of observable signs or symptoms of radiation injury Plan of Care Outcome - Counts OUTCOME STATEMENT: Goal met Absence of signs and symptoms of injury related to extraneous objects Last Modified By: Chula Chamberlain Rn 05/13/21 10:44:25 [facility] IntraOp Sign Out Audit 05/13/21 10:44:25 Event Decorator And Designer: [id number] Modifier: [id number] <+> 1 RN Sign Out Signature Date/Time [facility] IntraOp Skin Prep Entry 1 Entry 2 Procedure MIS Posterior Fusion CT MIS Posterior Fusion CT Guided Guided Prescribed N/A N/A Pre-Surgical Prep Completed Prep Area BACK BACK Intraop Prep Integumentary Assessment WDL WDL Patient Exceptions Patients Normal Integumentary Variance(s) Integumentary Assessment Comment Prep Agents Chlorhexidine DuraPrep gluconate/alcohol Prep by ROSALEE ZHENG Moore, Kimberly A, Rn MD-SNU Skin Prep Comment Hair Removal Methods No hair removal No hair removal performed performed Hair Removal Site Hair Removal By Last Modified By: Chula Chamberlain Rn Moore, Kimberly A, Rn 05/13/21 09:37:17 05/13/21 09:37:17 [facility] IntraOp Surgical Procedures Entry 1 Procedure MIS Posterior Fusion CT Guided Additional MIS L4-5 TLIF WITH ZIEHM Procedure Description Primary Procedure Yes Primary Surgeon ROSALEE ZHENG MD-SNU Start 05/13/21 09:09:00 Stop 05/13/21 10:44:00 Anesthesia Type General Specialty Neurosurgery Wound Class 1 - Clean Last Modified By: Chula Chamberlain Rn 05/13/21 10:44:35 [facility] IntraOp Surgical Procedures Audit 05/13/21 10:44:35 Event Decorator And Designer: [id number] Modifier: [id number] <+> 1 Stop [facility] IntraOp Temp Regulation Devices Entry 1 Temp Regulation Temperature THERMOREGULATION Regulation Comment MEASURES MONITIORED AND ADJUSTED BY ANESTHESIA Last Modified By: Chula Chamberlain Rn 05/13/21 09:37:46 [facility] IntraOP Time Out Entry 1 Procedure to be MIS Posterior Fusion CT Performed Guided Time Out Time Out Pause Time 05/13/21 09:09:00 All activity Yes suspended (unless life threatening emergency) Team Verbally Correct patient Confirms Information identity, Consent form is present and accurate, Agreement on the procedure to be done, Correct patient position, Relevant images/results properly labeled/appropriately displayed, Confirm antibiotics have been administered, Confirm the skin prep has dried, Confirm prosthesis/implant/devic e is present, Performed in location of procedure after prepped/draped, Reconcile problems if responses among team members differ Antibiotic Yes Prophylaxis Administered Or In Progress Within the Last 60 Minutes Beta Abdiel N/A Administered Venous Yes Thromboembolism Prophylaxis Required Anticipated Critical Events Surgeon None expected Anesthesia Provider None expected Nursing Assures Sterility of instruments, Implant Availability Essential Imaging Yes Labeled and Displayed Last Modified By: Chula Chamberlain Rn 05/13/21 09:38:25 [facility] [facility] and Images Entry 1 X-Ray/Imaging Type Fluoroscopy Fluoroscopy Type C-Arm Site OPERATIVE SITE Jeeper Operator Name Leticia Ramires, Diagnostic Social Media Manager Protective Devices No Used X-Ray and Imaging ZIE[facility] Comment Last Modified By: Chula Chamberlain Rn 05/13/21 09:39:05 Case Comments <None> Finalized By: IRINA BERNARD Document Signatures Signed By: Chula Chamberlain Rn 05/13/21 11:00 IRINA BERNARD 05/14/21 12:30 Unfinalized History Date/Time Username Reason for Unfinalizing Freetext Reason for Unfinalizing 05/14/21 12:26 BRANDYN Correct Billing Electronically signed by Katie [facility] Conversion Throw Out Clerk Cerner at 06/16/2022 10:50 AM CDT documented in this encounter Plan of Treatment Not on file documented as of this encounter Visit Diagnoses Not on filedocumented in this encounter Care Teams Imaging Services Director Relationship Specialty Start Date End Date Saima Dorman, SENIOR SALESFORCE DEVELOPER [address] [id number] PCP - General Nurse Practitioner 12/26/21 documented as of this encounter
--- OUTSIDE RECORDS SUMMARY | 2024-09-19 15:40 | XMS_ITS | Encounter Summary ---
Author Organization [employer] ([place], [place], [place], [place]) Address [address] [place] [address] Care Team Providers Care Behavioral Health Aide Name Role Phone Saima Dorman APRN Primary Care Provider Encounter Details Date Type Department Care Team (Late st Contact Info) Description 05/13/2021 Transcribed Document [facility] [place] Family Medicine [address] [place] [address] ProviderKarena MD [address] [place] [address] Social History Tobacco Use Types [...] Date Juventino rded Speak language other than Namibian at home Not on file 03/18/2023 Want [...] Conversion Note - Historical Provider, - 05/13/2021 12:00 PM CDT RX Interventions Entered On: 05/15/2021 7:30 EDT Performed On: 05/15/2021 7:30 EDT by Naomy Anderson, Pharmacist Clinical Interventions Clarify Drug Order : Yes Naomy Anderson Pharmacist - 05/15/2021 7:30 EDT Clarify Drug Order Clarify Drug Order, Order : Spoke with RN and patient's daughter stated that she didn't need dose while here and would give to patient as soon as discharged Clarify Drug Order, Value : 0 Dollar Clarify Drug Order, Time : 10 Minute(s) Naomy Anderson Pharmacist - 05/15/2021 7:30 EDT documented in this encounter Plan of Treatment Not on file documented as of this encounter Visit Diagnoses Not on filedocumented in this encounter Care Teams Behavioral Health Aide Relationship Specialty Start Date End Date Saima Dorman APRN [address] [phone] PCP - General Nurse Practitioner 12/26/21 documented as of this encounter
--- OUTSIDE RECORDS SUMMARY | 2024-09-19 15:40 | XMS_ITS | Encounter Summary ---
Author Organization [employer] ([place], [place], [place], [place]) Address [address] [place] [address] Care Team Providers Care Claim Benefit Specialist Name Role Phone Saima Dorman APRN Primary Care Provider Encounter Details Date Type Department Care Team (Late st Contact Info) Description 05/12/2021 Transcribed Document [facility] [address] [place] [address] ProviderKarena MD [address] [place] [address] Social History Tobacco Use Types [...] Date Juventino rded Speak language other than Ghanaian at home Not on file 03/18/2023 Want [...] Cerner Conversion Note - Historical ProviderMD - 05/12/2021 12:14 PM CDT Pre Procedure Adult Entered On: 05/12/2021 12:23 EDT Performed On: 05/12/2021 12:14 EDT by ELISA GRAY RN Height and Weight, Clinical Dosing Height Source : Chart Height Entry Format : [place] Height, Feet : 5 ft(Converted to: 152 cm, 60 Inch) Height, Inches : 2 Inch(Converted to: 0 ft 2 Inch, 5.08 cm) Clinical Height : 157.48 cm Weight Source : Standing scale Weight Entry Format : [place] Clinical Dosing Weight : 109.55 kg Weight, Pounds : 241 lb Body Surface Area (BSA) : 2.07 m2 Body Mass Index : 44.2 kg/m2 (>HHI) [place] Body Weight : 50 kg ELISA GRAY RN - 05/12/2021 12:14 EDT Health Histories Smoking Status : Never (less than 100 in lifetime; none in last 30 days) Smokeless Tobacco Status : Never Implant/Device Type, Corrosion Control Specialist and Model : bilateral knees ELISA GRAY RN - 05/12/2021 12:14 EDT Social History (As Of: 05/12/2021 12:23:56 EDT) Tobacco: Never (less than 100 in lifetime) Smoking Status. Never Smokeless Tobacco Status. (Last Updated: 05/12/2021 12:15:20 EDT by ELISA GRAY RN) Alcohol: Alcohol Use History Yes. Use in Last 12 Months: Yes. (Last Updated: 05/12/2021 12:15:30 EDT by ELISA GRAY RN) Use in Last 12 Months: Yes. Alcohol Use Frequency Rarely. (Last Updated: 05/12/2021 12:16:01 EDT by ELISA GRAY, OSIEL) Substance Abuse: Drug Use Hx: No. Use in Last 12 Months: No. (Last Updated: 05/12/2021 12:16:07 EDT by ELISA GRAY, OSIEL) Infectious Disease History Does patient have symptoms of COVID-19? : No Has the Patient Been Tested for COVID-19 in the last 14 days? : Yes, Patient stated results pending Does the Patient state known exposure to a COVID-19 positive case in the last 14 days? : No Patient Vaccinated for COVID-19 : Fully vaccinated ELISA GRAY RN - 05/12/2021 12:14 EDT Infectious Disease Risk Screening Grid Cough < 2 wks of unknown origin : NO Cough > 2 weeks : NO Blood in Sputum : NO Fever or self-reported Fever : NO Rash of unknown origin : NO Headache : NO Stiff neck : NO Night Sweats : NO Unexplained Weight Loss : NO Diarrhea (3 episode per day) : NO ELISA GRAY RN - 05/12/2021 12:14 EDT Physical contact outside [place] in the last 30 days : No Hospitalized in Foreign Country : No Infectious Disease History : Chicken pox/Shingles Active Surveillance Screen Assessment : Patient does not meet any of above criteria Active Surveillance Screen Negative : Yes INF Disease TB Screening Calc : 0 INF Disease Recent Travel Calc : 0 ELISA GRAY RN - 05/12/2021 12:14 EDT COVID19 PreProcedure Screening Has patient been isolated since the test : Yes Exposed to COVID19 symptoms since test? : No ARIELLE DUNCAN RN - 05/13/2021 8:09 EDT Is this an Emergent or Add on Procedure? : No Date PreProcedure COVID-19 test known? : Yes Date of PreProcedure COVID-19 : 05/12/2021 EDT ELISA GRAY RN - 05/12/2021 12:14 EDT Anesthesia/Transfusion History Family History of Anesthesia Reaction : No prior transfusion(s) Transfusion History : Prior anesthesia without reaction Family History of Anesthesia Reaction : None ELISA GRAY RN - 05/12/2021 12:14 EDT Functional Assessment Living Situation : Home Current Home Treatments : None ELISA GRAY RN - 05/12/2021 12:14 EDT [place] Suicide Severity Rating Scale (C-SSRS) CSSRS Past Month Wish to be : No CSSRS Past Month Suicidal Thoughts : No CSSRS Lifetime Suicide Behavior : No Suicide Severity Rating Score : 0 Suicide Severity Rating : No Additional Care Required at this time ELISA GRAY RN - 05/12/2021 12:14 EDT Psychosocial History Do You Have a History of the Following? : Depression Currently in Unsafe Situation : No ELISA GRAY RN - 05/12/2021 12:14 EDT Advance Directive Patient has Advance Directive *Q : No, patient refuses Advance Directive information ELISA GRAY RN - 05/12/2021 12:14 EDT Teaching/Learning Assessment Barriers To Learning : None evident ELISA GRAY RN - 05/12/2021 12:14 EDT Education Topics, Periop Preadmission Perioperative Education Grid Arrival Time/Place : Verbalizes understanding CHG Preoperative Bathing/Cloths : Verbalizes understanding NPO Status/Directions : Verbalizes understanding Preprocedure Preparations : Verbalizes understanding Preprocedure Tests/Labs : Verbalizes understanding Remove Body Piercings : Verbalizes understanding Responsible Adult : Verbalizes understanding Take/Hold Medications Pre-Procedure : Verbalizes understanding ELISA GRAY RN - 05/12/2021 12:14 EDT General Info Want Family/Rep/Phys Notified of Admit : No Emergency Contact #1 : paola loya Emergency Contact #1 Emergency Contact #1 Relationship : daughter Emergency Contact #2 : 00 Emergency Contact #2 Phone Number : 00 Emergency Contact #2 Relationship : 00 Information Obtained From : Patient Primary Language : Ghanaian Communication Barrier : None Him Manager Needed : No ELISA GRAY RN - 05/12/2021 12:14 EDT Vital Measurements Temperature Source : Temporal artery scanning Temperature Mode : Fahrenheit Temperature, Fahrenheit : 97.3 Deg F Clinical Temperature, C : 36.3 Deg C Pulse Method : Pulse Oximetry Peripheral Pulse Rate : 94 bpm Respiratory Rate : 22 Breaths/Min (HI) Blood Pressure Location : Arm, right upper Blood Pressure Source : Non-Invasive BP Device Blood Pressure Position : Sitting Systolic Blood Pressure : 138 mmHg Diastolic Blood Pressure : 84 mmHg Oxygen Saturation : 98 % Oxygen Therapy Mode : Room air ELISA GRAY RN - 05/12/2021 12:14 EDT Sleep Apnea Risk Assmt BiPAP/CPAP Ordered for Home Use : Yes Hx of Obstructive Sleep Apnea Diagnosis : Yes BiPAP/CPAP Used at Home : Yes Age over 50 Years Old : Yes Gender Male : No ELISA GRAY RN - 05/12/2021 12:14 EDT Frans[place] Scale [place] Sensory Perception : Slightly limited [place] Moisture : Rarely moist [place] Activity : Walks occasionally [place] Mobility : Slightly limited [place] Nutrition : Adequate [place] Friction and Shear : No apparent problem [place] Score : 19 ELISA GRAY RN - 05/12/2021 12:14 EDT Oxygen Therapy Oxygen Therapy Mode : Room air ELISA GRAY RN - 05/12/2021 12:14 EDT Electronically signed by Katie [facility] Conversion Licensed Prosthetist Cerner at 06/16/2022 10:50 AM CDT documented in this encounter Plan of Treatment Not on file documented as of this encounter Visit Diagnoses Not on filedocumented in this encounter Care Teams Claim Benefit Specialist Relationship Specialty Start Date End Date Saima Dorman APRN [address] [phone] PCP - General Nurse Practitioner 12/26/21 documented as of this encounter
--- OUTSIDE RECORDS SUMMARY | 2024-09-19 15:40 | XMS_ITS | Encounter Summary ---
Author Organization [employer] ([place], [place], [place], [place]) Address [address] [place] [address] Care Team Providers Care Rn Care Transition Name Role Phone Yessica Dorman APRN Primary Care Provider Encounter Details Date Type Department Care Team (Late st Contact Info) Description 05/15/2021 Transcribed Document [facility] Family Medicine [address] [place] [address] ProviderKarena MD [address] [place] [address] Social History Tobacco Use Types [...] Date Juventino rded Speak language other than Amharic at home Not on file 03/18/2023 Want [...] Miscellaneous Notes * Teresa Conversion Note - Karena Ashby MD - 05/15/2021 2:38 PM CDT [facility] [address] [place], [place] [id number] HEYDI LOYAA Yoel :1965 Visit Time:05/13/2021 Your Visit Summary Your Care Team Admitting Physician - ROSALEE ZHENG MD-SNU Attending Physician - ROSALEE ZHENG MD-SNU Primary Care Physician - YESSICA DORMAN APRN-FAM Referring Physician - CECY HERRERA Your Diagnosis Spondylolisthesis of lumbar region Lumbar radiculopathy Other spondylosis with myelopathy, lumbar region, Other spondylosis with myelopathy, lumbar region These Are Your Goals Patient Discharge Goal Patient Discharge Goal: Home health care Discharge Vitals Temperature 36.7 ??C Heart Rate (Monitored) 82 Respiratory Rate 16 Blood Pressure 101/81 What to do next Instructions From Your Care Team Please STOP taking Mobic (Meloxicam) for 2 months. Home Health Services: [facility]-- Medical Equipment for Home Use: Radha Discharge Activity: No strenuous activitiesNo lifting over 10 poundsKeep incision site dry and cleanNo submerging wound for 1 monthNo NSAIDs for 2 monthsNo bending, twisting, Discharge Activity: No strenuous activities Follow-Up Appointments Follow Up with ROSALEE ZHENG When 06/19/2021 09:15 AM EDT Comments 1 month with AP lateral lumbar x-rays 0815 for Xrays at [facility] Where: [address] [place] [address]- Business (1) Follow Up with ROSALEE ZHENG MD-SNU When 05/26/2021 02:00 PM EDT Comments Staple Removal Where: [address] [place] [address]- Medications What How Much When Instructions Next Dose acetaminophen-hydrocodone ([place] 7.5 mg-325 mg oral tablet) 1 Tablet(s) Oral Every 4 Hours as needed for as needed for pain Pickup at [facility] [address] 4:16 pm today budesonide-formoterol (Symbicort 160 mcg-4.5 mcg/ inh inhalation aerosol) 2 Puff(s) Inhalation Two Times A Day tonight buPROPion 150 Milligram(s) Oral Every Day tomorrow cyclobenzaprine 10 Milligram(s) Oral Three Times A Day as needed for for muscle relaxation as needed dilTIAZem 240 Milligram(s) Oral Every Day tomorrow DULoxetine 30 Milligram(s) Oral Two Times A Day tonight dupilumab (Dupixent) 200 Milligram(s) SubCutaneous Every Two Weeks 2 weeks eszopiclone (Lunesta) 2 Milligram(s) Oral At Bedtime tonight furosemide (Lasix) 40 Milligram(s) Oral Every Day tomorrow levocetirizine 5 Milligram(s) Oral Every Day tomorrow losartan 50 Milligram(s) Oral Every Day tomorrow meloxicam 15 Milligram(s) Oral Every Day May restart in 2 months in 2 months milk thistle (Milk Thistle oral capsule) 1 Capsule(s) Oral Every Day tomorrow montelukast 10 Milligram(s) Oral Every Day tomorrow pantoprazole (Protonix) 40 Milligram(s) Oral Every Day tomorrow pregabalin (Lyrica) 200 Milligram(s) Oral Two Times A Day tonight promethazine 25 Milligram(s) Oral Every 6 Hours as needed for as needed for nausea/vomiting as needed rosuvastatin 5 Milligram(s) Oral At Bedtime tonight spironolactone 25 Milligram(s) Oral Every Day tomorrow tiotropium (Spiriva) Inhalation Every Day tomorrow Pharmacy Information [facility] [address]: [address] [place], [place] [id number] [phone] Take your medications faithfully. Do NOT skip medication. Do NOT stop taking medications without the direction of a physician. Carry a list of your medications with you at all times, and take this medication list with you to your first follow up visit. Report any side effects. Avoid herbal remedies unless discussed with your physician. As part of your treatment plan, your physician may have prescribed a limited course of a controlled substance. This medication may be given to help people with moderate or severe pain or for other medical conditions, but there are risks involved with treatment. Common side effects may include nausea, constipation, drowsiness, sweating, itching, dry mouth, and rash. More serious side effects may include cognitive and motor impairment, like problems with thinking, concentrating, alertness, and movement (e.g. slowed reflexes), and driving and operating heavy machinery can be dangerous. It is important for you to talk to your physician if you have these side effects or questions. These controlled substances can produce physical dependence and be habit-forming if taken for an extended period of time, which means that the body has gotten used to them and may experience withdrawal symptoms if they are abruptly stopped. Withdrawal symptoms can include runny nose, sweating, goose bumps, diarrhea, abdominal cramping, rapid heartbeat, difficulty sleeping, and nervousness. Please dispose of unused and medications per your retail pharmacy guidance. Allergies penicillins (Rash) Immunizations This Visit SARS-CoV-2 (COVID-19) mRNA-1273 vaccine 07/09/2020 SARS-CoV-2 (COVID-19) mRNA-1273 vaccine 06/10/2020 Education Materials Home Oxygen Use, Adult When a medical condition keeps you from getting enough oxygen, your health care provider may instruct you to take extra oxygen at home. Your health care provider will let you know: ??? When to take oxygen. ??? How long to take oxygen. ??? How quickly oxygen should be delivered (flow rate), in liters per minute (LPM or L/M). Home oxygen can be given through: ??? A mask. ??? A nasal cannula. This is a device or tube that goes in the nostrils. ??? A transtracheal catheter. This is a small, thin tube placed in the windpipe (trachea). ??? A breathing tube (tracheostomy tube) that is surgically placed in the windpipe. This may be used in severe cases. These devices are connected with tubing to an oxygen source, such as: ??? A tank. Tanks hold oxygen in gas form. They must be replaced when the oxygen is used up. ??? A liquid oxygen device. This holds oxygen in liquid form. Liquid oxygen is very cold. It must be replaced when the oxygen is used up. ??? An oxygen concentrator machine. This filters oxygen in the room. There are two types of oxygen concentrator machines???stationary and portable. ? A stationary oxygen concentrator machine plugs into the main electricity supply at your home. You must have a backup cylinder of oxygen in case the power goes out. ? A portable oxygen concentrator machine is smaller in size and more lightweight. This machine uses battery supply and can be used outside the home. Work with your health care provider to find equipment that works best for you and your lifestyle. What are the risks? Delivery of supplemental oxygen is generally safe. However, some risks include: ??? Fire. This can happen if the oxygen is exposed to a heat source, flame, or spark. ??? Injury to skin. This can happen if liquid oxygen touches your skin. ??? Damage to the lungs or other organs. This can happen from getting too little or too much oxygen. Supplies needed: To use oxygen, you will need: ??? A mask, nasal cannula, transtracheal catheter, or tracheostomy. ??? An oxygen tank, a liquid oxygen device, or an oxygen concentrator. ??? The tape that your health care provider recommends (optional). Your health care provider may also recommend: ??? A humidifier to warm and moisten the oxygen delivered. This will depend on how much oxygen you need and the type of home oxygen device you use. ??? A pulse oximeter. This device measures the percentage of oxygen in your blood. How to use oxygen Your health care provider or a person from your medical anthropology director company will show you how to use your oxygen device. Follow his or her instructions. The instructions may look something like this: 1. Wash your hands with soap and water. 2. If you use an oxygen concentrator, make sure it is plugged in. 3. Place one end of the tube into the port on the tank, device, or machine. 4. Place the mask over your nose and mouth. Or, place the nasal cannula and secure it with tape if instructed. If you use a tracheostomy or transtracheal catheter, connect it to the oxygen source as directed. 5. Make sure the liter-flow setting on the machine is at the level prescribed by your health care provider. 6. Turn on the machine or adjust the knob on the tank or device to the correct liter-flow setting. 7. When you are done, turn off and unplug the machine, or turn the knob to OFF. How to clean and care for the oxygen supplies Nasal cannula ??? Clean it with a warm, wet cloth daily or as needed. ??? Wash it with a liquid soap once a week. ??? Rinse it thoroughly once or twice a week. ??? Air-dry it. ??? Replace it every 2???4 weeks. ??? If you have an infection, such as a cold or pneumonia, change the cannula when you get better. Mask ??? Replace it every 2???4 weeks. ??? If you have an infection, such as a cold or pneumonia, change the mask when you get better. Humidifier bottle ??? Wash the bottle between each refill: ? Wash it with soap and warm water. ? Rinse it thoroughly. ? Clean it and its top with a disinfectant truck cleaner. ? Air-dry it. ? Make sure it is dry before you refill it. Oxygen concentrator ??? Clean the air filter at least twice a week according to directions from your home medical equipment and service company. ??? Wipe down the cabinet every day. To do this: ? Unplug the unit. ? Wipe down the cabinet with a damp cloth. ? Dry the cabinet. Other equipment ??? Change any extra tubing every 1???3 months. ??? Follow instructions from your health care provider about taking care of any other equipment. Safety tips Fire safety tips ??? Keep your oxygen and oxygen supplies at least 6 ft (2 m) away from sources of heat, flames, and hillman at all times. ??? Do not allow smoking near your oxygen. Put up no smoking signs in your home. Avoid smoking areas when in public. ??? Do not use materials that can burn (are flammable) while you use oxygen. This includes: ? Petroleum jelly. ? Hair spray or other aerosol sprays. ? Rubbing alcohol. ? Hand water plant maintenance mechanic. ??? When you go to a restaurant with portable oxygen, ask to be seated in the non-smoking section. ??? Keep a fire extinguisher close by. Let your fire department know that you have oxygen in your home. ??? Test your home smoke detectors regularly. Traveling ??? Secure your oxygen tank in the vehicle so that it does not move around. Follow instructions from your medical anthropology director company about how to safely secure your tank. ??? Make sure you have enough oxygen for the amount of time you will be away from home. ??? If you are planning to travel by public transportation (airplane, train, bus, or boat), contact the company to find out if it allows the use of an approved portable oxygen concentrator. You may also need documents from your health care provider and medical anthropology director company before you travel. General safety tips ??? If you use an oxygen cylinder, make sure it is in a stand or secured to an object that will not move (fixed object). ??? If you use liquid oxygen, make sure its container is kept upright at all times. ??? If you use an oxygen concentrator: ? Tell your electric company. Make sure you are given priority service in the event that your power goes out. ? Avoid using extension cords if possible. Follow these instructions at home: ??? Use oxygen only as told by your health care provider. ??? Do not use alcohol or other drugs that make you relax (sedating drugs) unless instructed. They can slow down your breathing rate and make it hard to get in enough oxygen. ??? Know how and when to order a refill of oxygen. ??? Always keep a spare tank of oxygen. Plan ahead for holidays when you may not be able to get a prescription filled. ??? Use water-based lubricants on your lips or nostrils. Do not use oil-based products like petroleum jelly. ??? To prevent skin irritation on your cheeks or behind your ears, tuck some gauze under the tubing. Where to find more information ??? [place] [employer]: www.lung.org/oxygen Contact a health care provider if: ??? You get headaches often. ??? You have a lasting cough. ??? You are restless or have anxiety. ??? You develop an illness that affects your breathing. ??? You cannot exercise at your regular level. ??? You have a fever. ??? You have persistent redness under your nose. Get help right away if: ??? You are confused. ??? You are sleepy all the time. ??? You have blue lips or fingernails. ??? You have difficult or irregular breathing that is getting worse. ??? You are struggling to breathe. These symptoms may represent a serious problem that is an emergency. Do not wait to see if the symptoms will go away. Get medical help right away. Call your local emergency services (911 in the [place] Do not drive yourself to the hospital. Summary ??? Your health care provider or a person from your medical anthropology director company will show you how to use your oxygen device. Follow his or her instructions. ??? If you use an oxygen concentrator, make sure it is plugged in. ??? Make sure the liter-flow setting on the machine is at the level prescribed by your health care provider. ??? Use oxygen only as told by your health care provider. ??? Keep your oxygen and oxygen supplies at least 6 ft (2 m) away from sources of heat, flames, and hillman at all times. This information is not intended to replace advice given to you by your health care provider. Make sure you discuss any questions you have with your health care provider. Document Revised: 04/18/2020 Document Reviewed: 02/13/2020 [employer] Patient Education ?? 2020 [employer]. Lumbar Spine Discharge Information What to expect after surgery: -Mild swelling around the incision site. This will go away with time -Stiffness and pain at the incision site. -Leg pain due to nerve root irritation during surgery- usually improves with time -Tiredness is normal after surgery- it may take a week or so to regain your strength -You should only be in bed to sleep. Dressing: -Do not apply any lotions or ointments to your incision -Ernesto will be removed in office -Steri-strips or white tape, surgical glue or mesh may fall off on their own, or can be taken off in 10-2 days -Use antibacterial soap before and after changing the dressing DO NOT: Submerge in a pool, bathtub, hot tub, or allow the shower to beat directly on your incision. . Comfort Measures: -Use ice as needed. Don't put the ice directly on your skin, keep a barrier between your incision and the ice. -Change positions often- walking and lying down are best postures -Take prescription medications as indicated Brace: -If your doctor prescribes a brace, you may remove it to wash up and to sleep. Do not wear your brace in bed. -Have it on when you're up and about! Activity: -Stairs are okay, do not climb ladders -Light activity, walking on level surfaces & sexual relations are permitted but may be limited by pain. -Remember ???BLT?? No Bending, Lifting, or Twisting rule -Drive when you are no longer taking pain medication -Return to work 2-8 weeks when allowed by the surgeon. DO NOT lift over 10 pounds, mow the lawn, sweep, vacuum, dust, wash windows, rake leaves, shovel, or hike. Other: -Smoking cigarettes or inhaling secondhand smoke can make your fusion unsuccessful -Do not take osteoporosis medications until 2 months after your surgery -If your surgery included a fusion, do NOT take any anti-inflammatory medications (NSAIDs, ie. Aleve, Advil, Motrin, etc.) for at least 8 weeks after surgery! -Do NOT overuse prescription medications. You must follow directions closely. As needed means you should only take them when you are feeling pain and taking them in the directed time frame (eg. Every 4 hours.) Refills will be given ONLY if you have used the medications appropriately as directed. acetaminophen and hydrocodone (a SEET a MIN oh fen and shin droe KOE done) Hycet, Lorcet, [place], Verdrocet, Vicodin, Xodol, Zamicet What is the most important information I should know about acetaminophen and hydrocodone? MISUSE OF OPIOID MEDICINE CAN CAUSE ADDICTION, OVERDOSE, OR . Keep the medication in a place where others cannot get to it. Taking opioid medicine during may cause life-threatening withdrawal symptoms in the . Fatal side effects can occur if you use opioid medicine with alcohol, or with other drugs that cause drowsiness or slow your breathing. Stop taking this medicine and call your doctor right away if you have skin redness or a rash that spreads and causes blistering and peeling. What is acetaminophen and hydrocodone? Acetaminophen and hydrocodone is a combination medicine used to relieve moderate to severe pain. Acetaminophen and hydrocodone contains an opioid medicine, and may be habit-forming. Acetaminophen and hydrocodone may also be used for purposes not listed in this medication guide. What should I discuss with my healthcare provider before taking acetaminophen and hydrocodone? You should not use this medicine if you are allergic to acetaminophen or hydrocodone, or if you have: ?? severe asthma or breathing problems; or ?? a blockage in your stomach or intestines. Tell your doctor if you have ever had: ?? breathing problems, sleep apnea (breathing stops during sleep); ?? liver disease; ?? a drug or alcohol addiction; ?? kidney disease; ?? a head injury or seizures; ?? urination problems; or ?? problems with your thyroid, pancreas, or gallbladder. If you use opioid medicine while you are , your baby could become dependent on the drug. This can cause life-threatening withdrawal symptoms in the baby after it is born. Babies born dependent on opioids may need medical treatment for several weeks. Ask a doctor before using opioid medicine if you are . Tell your doctor if you notice severe drowsiness or slow breathing in the nursing baby. How should I take acetaminophen and hydrocodone? Follow all directions on your prescription label. Never take this medicine in larger amounts, or for longer than prescribed. An overdose can damage your liver or cause . Tell your doctor if you feel an increased urge to use more of this medicine. Never share this medicine with another person, especially someone with a history of drug abuse or addiction. MISUSE CAN CAUSE ADDICTION, OVERDOSE, OR . Keep the medicine in a place where others cannot get to it. Selling or giving away this medicine is against the law. Measure liquid medicine carefully. Use the dosing syringe provided, or use a medicine dose-measuring device (not a kitchen spoon). If you need surgery or medical tests, tell the doctor ahead of time that you are using this medicine. You should not stop using this medicine suddenly. Follow your doctor's instructions about tapering your dose. Store at room temperature away from moisture and heat. Keep track of your medicine. You should be aware if anyone is using it improperly or without a prescription. Do not keep leftover opioid medication. Just one dose can cause in someone using this medicine accidentally or improperly. Ask your pharmacist where to locate a drug take-back disposal program. If there is no take-back program, flush the unused medicine down the toilet. What happens if I miss a dose? Since this medicine is used for pain, you are not likely to miss a dose. Skip any missed dose if it is almost time for your next dose. Do not use two doses at one time. What happens if I overdose? Seek emergency medical attention or call the Poison Help line at . An overdose of this medicine can be fatal, especially in a child or other person using the medicine without a prescription. Overdose symptoms may include nausea, vomiting, sweating, severe drowsiness, pinpoint pupils, slow breathing, or no breathing. Your doctor may recommend you get naloxone (a medicine to reverse an opioid overdose) and keep it with you at all times. A person caring for you can give the naloxone if you stop breathing or don't wake up. Your caregiver must still get emergency medical help and may need to perform CPR (cardiopulmonary resuscitation) on you while waiting for help to arrive. Anyone can buy naloxone from a pharmacy or local health department. Make sure any person caring for you knows where you keep naloxone and how to use it. What should I avoid while taking acetaminophen and hydrocodone? Avoid driving or operating machinery until you know how this medicine will affect you. Dizziness or drowsiness can cause falls, accidents, or severe injuries. Do not drink alcohol. Dangerous side effects or could occur. Ask a doctor or pharmacist before using any other medicine that may contain acetaminophen (sometimes abbreviated as APAP). Taking certain medications together can lead to a fatal overdose. What are the possible side effects of acetaminophen and hydrocodone? Get emergency medical help if you have signs of an allergic reaction: hives; difficulty breathing; swelling of your face, lips, tongue, or throat. Opioid medicine can slow or stop your breathing, and may occur. A person caring for you should give naloxone and/or seek emergency medical attention if you have slow breathing with long pauses, blue colored lips, or if you are hard to wake up. In rare cases, acetaminophen may cause a severe skin reaction that can be fatal. This could occur even if you have taken acetaminophen in the past and had no reaction. Stop taking this medicine and call your doctor right away if you have skin redness or a rash that spreads and causes blistering and peeling. Call your doctor at once if you have: ?? noisy breathing, sighing, shallow breathing, breathing that stops; ?? a light-headed feeling, like you might pass out; ?? liver problems--nausea, upper stomach pain, tiredness, loss of appetite, dark urine, isis-colored stools, jaundice (yellowing of the skin or eyes); ?? low cortisol levels-- nausea, vomiting, loss of appetite, dizziness, worsening tiredness or weakness; o ?? high levels of serotonin in the body--agitation, hallucinations, fever, sweating, shivering, fast heart rate, muscle stiffness, twitching, loss of coordination, nausea, vomiting, diarrhea. Serious breathing problems may be more likely in older adults and in those who are debilitated or have wasting syndrome or chronic breathing disorders. Common side effects include: ?? dizziness, drowsiness, feeling tired; ?? nausea, vomiting, stomach pain; ?? constipation; or ?? headache. This is not a complete list of side effects and others may occur. Call your doctor for medical advice about side effects. You may report side effects to FDA at 9-196-FAK-9797. What other drugs will affect acetaminophen and hydrocodone? You may have breathing problems or withdrawal symptoms if you start or stop taking certain other medicines. Tell your doctor if you also use an antibiotic, antifungal medication, heart or blood pressure medication, seizure medication, or medicine to treat HIV or hepatitis C. Opioid medication can interact with many other drugs and cause dangerous side effects or . Be sure your doctor knows if you also use: ?? cold or allergy medicines, bronchodilator asthma/COPD medication, or a diuretic ('water pill'); ?? medicines for motion sickness, irritable bowel syndrome, or overactive bladder; ?? other opioids--opioid pain medicine or prescription cough medicine; ?? a sedative like Valium--diazepam, alprazolam, lorazepam, Xanax, Klonopin, Versed, and others; ?? drugs that make you sleepy or slow your breathing--a sleeping pill, muscle relaxer, medicine to treat mood disorders or mental illness; ?? drugs that affect serotonin levels in your body--a stimulant, or medicine for depression, Parkinson's disease, migraine headaches, serious infections, or nausea and vomiting. This list is not complete. Other drugs may affect acetaminophen and hydrocodone, including prescription and qigq-buq-shfdwba medicines, vitamins, and herbal products. Not all possible interactions are listed here. Where can I get more information? Your doctor or pharmacist can provide more information about acetaminophen and hydrocodone. Remember, keep this and all other medicines out of the reach of children, never share your medicines with others, and use this medication only for the indication prescribed. Every effort has been made to ensure that the information provided by [employer]. ('[employer]') is accurate, up-to-date, and complete, but no guarantee is made to that effect. Drug information contained herein may be time sensitive. [employer] information has been compiled for use by healthcare practitioners and consumers in the [place] and therefore [employer] does not warrant that uses outside of the [place] are appropriate, unless specifically indicated otherwise. [employer] drug information does not endorse drugs, diagnose patients or recommend therapy. [employer] drug information is an informational resource designed to assist licensed healthcare practitioners in caring for their patients and/or to serve consumers viewing this service as a supplement to, and not a substitute for, the expertise, skill, knowledge and judgment of healthcare practitioners. The absence of a warning for a given drug or drug combination in no way should be construed to indicate that the drug or drug combination is safe, effective or appropriate for any given patient. [employer] does not assume any responsibility for any aspect of healthcare administered with the aid of information [employer] provides. The information contained herein is not intended to cover all possible uses, directions, precautions, warnings, drug interactions, allergic reactions, or adverse effects. If you have questions about the drugs you are taking, check with your doctor, nurse or pharmacist. Copyright 1789-4377 [employer]. Version: 16.03. Revision Date: 04/02/2020. Emergency Awareness and Preventative Care STROKE is an EMERGENCY Every Minute Counts Act FAST and Check for these signs: FACE Does the face look uneven? ARM Does one arm drift down? SPEECH Does their speech sound strange? TIME Call at any sign of stroke Stroke Risk Factors Atrial Fibrillation (irregular heartbeat) Diabetes Family history of stroke Heart Disease Heavy alcohol use High Blood Pressure High Cholesterol Physical inactivity and obesity Smoking Cigarette Smoking The facts are clear, cigarette smoking will shorten your life. Smoking can cause many illnesses along the way. As a healthcare provider, we recommend that you stop smoking. Assistance with quitting is available by contacting 5-550-JTDPNOW. This is a free resource providing counseling, support, and referral. Or you may contact your personal physician. [place] Suicide Prevention Lifeline: The National Suicide Prevention Lifeline is a national network of local crisis centers that provides free and confidential emotional support to people in suicidal crisis or emotional distress 24 hours a day, 7 days a week. Don't Wait! Stop a Heart Attack Before it Starts What is a heart attack? A heart attack is damage or to a part of the heart from severely decreased or lack of blood flow to the heart. Over time, arteries can become narrow from the buildup of fat and cholesterol, which is called plaque. The plaque can rupture causing a blood clot to form. When the blood clot forms, the artery can become severely narrowed or completely blocked, causing a heart attack. Heart attack is the leading cause of in the [place]. 85% of muscle damage occurs within the first 2 hours. Delay in the recognition of heart attack symptoms increases the chances of . Know the early symptoms of a heart attack: Nausea Feeling of fullness in chest Jaw Pain Pain that travels down one or both arms Fatigue/being tired Anxiety Back Pain Chest pressure, squeezing, or discomfort Shortness of breath Sweating, or a cold sweat Feeling of impending doom There are unusual signs of a heart attack, too! Women, the elderly, and diabetics may present with atypical symptoms: Fainting/dizziness Weakness Confusion Risk Factors for a Heart Attack Some heart disease risk factors, such as age and family history, cannot be changed. Others, like smoking and lack of exercise, can be changed. Smoking High Cholesterol High Blood Pressure Family History Obesity Age Gender (Males are at higher risk) Lack of Exercise Diabetes Diet Stress Excessive Alcohol Intake If you or someone you know is experiencing the signs and symptoms of a heart attack, DON???T DELAY. Call immediately and seek help. If someone collapses, perform CPR! Do not attempt to drive if you are having symptoms of heart attack. Hands-Only CPR Why Hands-Only CPR? Hands-Only CPR has been shown to be as effective as conventional CPR for cardiac arrests that occur outside of a hospital. Survival depends on immediately receiving CPR from someone nearby. How do you perform Hands-Only CPR? There are two easy steps: Call 9-1-1 if you see a teen or adult collapse Push hard and fast in the center of the chest at a beat of 100 beats per minute. Save a life! 4 WAYS TO GET AHEAD OF SEPSIS SEPSIS is a MEDICAL EMERGENCY. Time matters! Infections put you and your family at risk for a life-threatening condition called sepsis. Sepsis is the body's extreme response to an infection. It is life-threatening, and without timely treatment, sepsis can rapidly lead to tissue damage, organ failure, and . Sepsis happens when an infection you already have-in your skin, lungs, urinary tract or somewhere else-triggers a chain reaction throughout your body. 1 PREVENT INFECTIONS Take good care of chronic conditions. Talk to your doctor about getting the recommended vaccines. 2 PRACTICE GOOD HYGIENE Wash your hands frequently. Keep cuts or open sores clean and covered until they are healed. 3 KNOW THE SYMPTOMS Confusion or disorientation Shortness of breath High heart rate Fever, shivering, or feeling very cold Extreme pain or discomfort Clammy or sweaty skin 4 ACT FAST Get medical care IMMEDIATELY if you suspect sepsis or if you have an infection that is not getting better or is getting worse. To learn more about sepsis and how to prevent infections, visit www.cdc.gov/sepsis. Test Results Laboratory or Other Results This Visit (last charted value for your 05/13/2021 visit) Hematology 05/15/2021 3:58 AM WBC: 10.7 K/uL -- Normal range between ( 4.5 and 10.5 ) RBC: 3.80 Million/uL -- Normal range between ( 3.93 and 5.22 ) Hct: 34.7 % -- Normal range between ( 34.1 and 44.9 ) Hgb: 10.4 g/dL -- Normal range between ( 11.2 and 15.7 ) Platelet Count: 260 K/uL -- Normal range between ( 163 and 369 ) MCH: 27.4 pg -- Normal range between ( 25.6 and 32.2 ) MCHC: 30.0 Gram/dL -- Normal range between ( 32.2 and 36.5 ) MCV: 91.3 fL -- Normal range between ( 79.0 and 94.8 ) Slide Review: Technologist Eos %: 0.8 % -- Normal range between ( 0.0 and 7.0 ) Mccreary #: 0.97 K/uL -- Normal range between ( 0.16 and 1.00 ) Eos #: 0.09 x10(3)/uL -- Normal range between ( 0.00 and 0.80 ) Mccreary %: 9.0 % -- Normal range between ( 3.0 and 9.0 ) Baso %: 0.5 % -- Normal range between ( 0.0 and 1.5 ) RBC Morphology: Normal Baso #: 0.05 x10(3)/uL -- Normal range between ( 0.00 and 0.20 ) RDW: 15.0 % -- Normal range between ( 11.7 and 14.9 ) Neut %: 75.1 % -- Normal range between ( 34.0 and 71.0 ) Neut #: 8.06 K/uL -- Normal range between ( 1.56 and 6.13 ) Lymph %: 14.0 % -- Normal range between ( 19.3 and 53.1 ) Platelet Ct Estimate: Adequate Lymph #: 1.50 x10(3)/uL -- Normal range between ( 1.00 and 3.90 ) MPV: 10.2 fL -- Normal range between ( 9.4 and 12.4 ) IG#: 0.06 x10(3)/uL -- Normal range between ( 0.00 and 0.05 ) IG%: 0.60 % -- Normal range between ( 0.00 and 0.60 ) Urinalysis 05/12/2021 11:29 AM Urine Nitrite: Negative Urine Leukocyte Esterase: Moderate Ur Epithelial Cells: 5-10 /HPF Urine Appearance: Clear Urine Glucose Dipstick: Negative Urine Blood Dipstick: Negative Urine Urobilinogen Dipstick: 1.0 EU/dL Urine Protein Dipstick: Negative Ur Amorph: 1+ Ur Bacteria: 1+ Urine Color: Yellow Ur WBC: 10-20 /HPF Urine Ketones Dipstick: Negative Urine pH Dipstick: 6.5 -- Normal range between ( 6.0 and 8.0 ) Urine Bilirubin Dipstick: Negative Urine Specific Thayer: 1.021 -- Normal range between ( 1.005 and 1.030 ) Urine Type.: U CleanCatch Urine Culture if Indicated: Culture Ordered Microbiology 05/12/2021 3:02 PM SARS-CoV-2 (COVID19 PCR): Negative 05/12/2021 11:29 AM Urine Culture: POS General Chemistry 05/15/2021 3:58 AM Creatinine Level: 0.90 mg/dL -- Normal range between ( 0.55 and 1.02 ) Sodium Level: 139 mmol/L -- Normal range between ( 136 and 146 ) Potassium Level: 5.5 mmol/L -- Normal range between ( 3.5 and 5.1 ) Chloride Level: 109 mmol/L -- Normal range between ( 102 and 112 ) Carbon Dioxide Level: 28 mmol/L -- Normal range between ( 21 and 32 ) Anion Gap: 8 -- Normal range between ( 9 and 20 ) Bun/Creatinine: 15.6 -- Normal range between ( 8.0 and 20.0 ) Calcium Level: 8.9 mg/dL -- Normal range between ( 8.4 and 10.1 ) eGFR : >60 mL/min/1.73m2 eGFR NonAfrican: >60 mL/min/1.73m2 Glucose Level: 95 mg/dL -- Normal range between ( 74 and 106 ) Blood Urea Nitrogen: 14 mg/dL -- Normal range between ( 7 and 22 ) Diagnostic Radiology 05/13/2021 10:30 AM CR Fluoro in OR: CR Fluoro in OR Patient Name:MORAIMA LOYA I have received and understand this information and was given the opportunity to ask questions. Patient/Brokerage Clerk Name: Patient/Brokerage Clerk Signature: Relationship to Patient: Clinician/Hospital Brokerage Clerk Signature: Date: documented in this encounter Plan of Treatment Not on file documented as of this encounter Visit Diagnoses Not on filedocumented in this encounter Care Teams Rn Care Transition Relationship Specialty Start Date End Date Yessica Dorman APRN [address] [address] PCP - General Nurse Practitioner 12/26/21 documented as of this encounter
--- OUTSIDE RECORDS SUMMARY | 2024-09-19 15:40 | XMS_ITS | Encounter Summary ---
Author Organization [employer] ([place], [place], [place], [place]) Address [address] [place] [address] Care Team Providers Care Eyelet Machine Operator Name Role Phone Saima Dorman APRN Primary Care Provider Encounter Details Date Type Department Care Team (Late st Contact Info) Description 05/15/2021 Transcribed Document [facility] [place] [address] [place] [address] ProviderKarena MD [address] [place] [address] Social History Tobacco Use Types [...] Date Juventino rded Speak language other than Mauritian at home Not on file 03/18/2023 Want [...] Cerner Conversion Note - Historical ProviderMD - 05/15/2021 4:58 PM CDT Final Discharge Planning Entered On: 05/15/2021 17:01 EDT Performed On: 05/15/2021 16:58 EDT by CELSO LEIJA, RN-Teacher Industrial Arts Final Discharge Planning Discharge Arrangements : Patient Post-Acute Information Patient Name: MORAIMA LOYA Gender: Female : 63 Age: 56 Years No Post-Acute Placement(s) Listed No Post-Acute Service(s) Listed No [place] Referral(s) Listed Patient Offered Choice/Affiliations Explained : Yes Designation of Choice Signed : Yes Important Medicare Message Reviewed With : Other: <72hrs Transportation Needs : Car Follow Up Appointment Scheduled : Yes Is Patient High/Moderate Readmission Risk? : No Patient/Family Notified of Plan : Yes Support Person/Pt Rep Notified of Plan : Yes Patient/Family Notified : Daughter Is Patient Ready for Discharge? : Yes Physician Notified Patient is Ready for Discharge? : Yes Discharge To Care Management : Home Health Services (Related/SOC within 3 days)-06 CELSO LEIJA RN-Teacher Industrial Arts - 05/15/2021 16:58 EDT Final Narrative Note Final Narrative Note : DC orders noted. Pt evaluated for home O2 continuous and she qualifies at 87% at rest. Referral sent to [facility] for continuous and poratble O2 tank. Pt agrees to for SN/PT and chose [facility] as she has used them before. Referral sent via [employer] and confirmed acceptance with Vandana in intake. No other CM needs noted. CELSO LEIJA, RN-Teacher Industrial Arts - 05/15/2021 16:58 EDT Electronically signed by Katie [facility] Conversion Diamond Cleaner Cerner at 06/16/2022 11:14 AM CDT documented in this encounter Plan of Treatment Not on file documented as of this encounter Visit Diagnoses Not on filedocumented in this encounter Care Teams Eyelet Machine Operator Relationship Specialty Start Date End Date Saima Dorman, SET UP PERSON [address] [place] [address] PCP - General Nurse Practitioner 12/26/21 documented as of this encounter
--- OUTSIDE RECORDS SUMMARY | 2024-09-19 15:40 | XMS_ITS | Encounter Summary ---
Author Organization [employer] ([place], [place], [place], [place]) Address [address] [place] [address] Care Team Providers Care Network Management Specialist Name Role Phone Saima Dorman APRN Primary Care Provider Encounter Details Date Type Department Care Team (Late st Contact Info) Description 05/12/2021 Transcribed Document [facility] [place] [address] [place] [address] ProviderKarena MD [address] [place] [address] Social History Tobacco Use Types [...] Juventino rded Speak language other than [place] Island[place] at home Not on file 03/18/2023 Want [...] Cerner Conversion Note - Historical Provider, - 05/12/2021 3:44 PM CDT UM Authorization Entered On: 05/12/2021 15:45 EDT Performed On: 05/12/2021 15:44 EDT by JOCELYN ARMSTRONG, Tanker Truck Driver Primary Insurance Authorization Authorization and Policy Numbers : Insurance 1 Health Plan: [employer] Policy Number: [id number] Authorization Number: Insurance 2 Health Plan: MEDICARE Policy Number: [id number] Authorization Number: Insurance Primary Name : [employer] [id number] Authorization Status-Primary : Admit approved Authorization Number-Primary : [id number] Number of Days Authorized-Primary : 0 Day(s) Authorized Service Begin Date-Primary : 05/13/2021 EDT Authorized Service End Date-Primary : 05/13/2021 EDT Authorization Comments-Primary : 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 CT guided on 05-13-21 per [facility] [employer] IP auth# [id number] 1 day approved Historical Authorization Comments-Primary : No Authorization Comments Found JOCELYN ARMSTRONG, Tanker Truck Driver - 05/12/2021 15:44 EDT documented in this encounter Plan of Treatment Not on file documented as of this encounter Visit Diagnoses Not on filedocumented in this encounter Care Teams Network Management Specialist Relationship Specialty Start Date End Date Saima Dorman, CHRISTI [address] [address] PCP - General Nurse Practitioner 12/26/21 documented as of this encounter
--- OUTSIDE RECORDS SUMMARY | 2024-09-19 15:40 | XMS_ITS | Encounter Summary ---
Author Organization [employer] ([place], [place], [place], [place]) Address [address] [place] [address] Care Team Providers Care Group Segment Consultant Name Role Phone Saima Dorman APRN Primary Care Provider Encounter Details Date Type Department Care Team (Late st Contact Info) Description 05/13/2021 Transcribed Document [facility] [place] [address] [place] [address] ProviderKarena MD [address] [place] [address] Social History Tobacco Use Types [...] Date Juventino rded Speak language other than Upper Sorbian at home Not on file 03/18/2023 Want [...] Conversion Note - Historical Provider, - 05/13/2021 4:56 PM CDT Treatment Intervention, PT Entered On: 05/14/2021 11:55 EDT Performed On: 05/14/2021 11:26 EDT by CHRISTINA CHRISTIAN PTA General Information, PT Visit Type, PT : Treatment Note Patient Orders : Order Date Order Ordering 05/13/2021 10:40 Physical Therapy Eval and Treat Ordered By: ROSALEE ZHENG MD-[facility] 05/13/2021 16:56 Physical Therapy Additional Tx Ordered By: AVA MENA, PT Active Diagnoses : 05/14/2021 12:00 Radiculopathy, lumbar region 05/13/2021 12:00 Spondylolisthesis, lumbar region Therapy Diagnosis, PT : functional decline after back sx Admission Date : 05/13/2021 06:34 Co-treated by, PT : Other: OT student Personal Devices : Personal Devices No Devices Recorded Assistive Devices : Assistive Devices No Devices Recorded Precautions in Place : Log roll precautions, Spinal Precautions CHRISTINA CHRISTIAN PTA - 05/14/2021 11:48 EDT General Status Patient Received Status : Sitting edge of bed Treatment Start Time : 05/14/2021 11:02 EDT Patient Left Status : Sitting edge of bed, RN/PCT informed, Family/Visitors at bedside, All needs met and within reach RN/PCT Informed Comment : nsg Sherly Treatment End Time : 05/14/2021 11:26 EDT Treatment Time : 24 Minute(s) CHRISTINA CHRISTIAN PTA - 05/14/2021 11:48 EDT Therapeutic Activities Sitting Activities Grid Activity #1 Activities : Static Position : Sit unsupported Time : 5 minutes Assistance : Supervision Patient Response/Comment : pt sat on BSC CHRISTINA CHRISTIAN PTA - 05/14/2021 11:48 EDT Functional Mobility Mobility Grid Sit to Stand : Supervision/set-up Stand to Sit : Supervision/set-up CHRISTINA CHRISTIAN PTA - 05/14/2021 11:48 EDT Gait Training/Assessment, PT Weight Bearing Status : Full Gait Assistance Level : Supervision Walking Distance : 180' Ambulatory Devices : Gait belt, Walker, front wheel Left Lower Gait Deviation : Katheryn, decreased, Step length, decreased Right Lower Gait Deviation : Katheryn, decreased, Step length, decreased ANAHI CHRISTINAAILIN PINEDA 05/14/2021 11:48 EDT Cognitive Treatment, PT Orientation : Oriented x 4 CHRISTINA CHRISTIAN PTA 05/14/2021 11:48 EDT Edu Topics Physical Therapy Education Grid Bed Mobility Training : Needs further teaching Gait Training : Needs further teaching Role of Physical Therapy : Verbalizes understanding Safety : Needs further teaching Transfer Training : Needs further teaching CHRISTINA CHRISTIAN PTA 05/14/2021 11:48 EDT Indication Assesessment, PT Physical Therapy Indicated : Yes CHRISTINA CHRISTIAN PTA 05/14/2021 11:48 EDT Plan of Care, PT PT Tx Plan/Goals Established w Patient : Yes CHRISTINA CHRISTIAN PTA 05/14/2021 11:48 EDT [facility] Goals Mobility/Bed Mobility LTG PT Grid Goal #1 Goal #2 Activity : Supine to sit Sit to stand Assist : Independent, modified Independent, modified Equipment : Bed, hospital Walker, front wheel Date to Meet : 05/27/2021 EDT 05/27/2021 EDT Goal Status : Intial Goal Progressing, continue CHRISTINA [facility] 05/14/2021 11:48 EDT CHRISTINA CHRISTIAN [facility] 05/14/2021 11:48 EDT Ambulation LTG Grid Goal #1 Device : Walker, front wheel Distance : 350 ft w/O2 sts >88% Assist : Independent, modified Date to Meet : 05/27/2021 EDT Goal Status : Progressing, continue CHRISTINA CHRISTIAN [facility] 05/14/2021 11:48 EDT Stairs LTG Grid Goal #1 Device : Walker, front wheel Number of Steps : 1 Handrail(s) : No handrails Assist : Supervision or set-up Date to Meet : 05/28/2021 EDT Goal Status : Intial Goal CHRISTINA CHRISTIAN PTA 05/14/2021 11:48 EDT Treatment Note Subjective Comment : pt agreeable to PTx, nsg cleared pt for PTx Additional Objective Information : pt O2 sat reading 85% on room air at beginning of session, nasal cannula placed on pt with 2L O2 with sat returning to 90% after ~ 30 seconds, pt ambulated in hallway and upon return to room pt O2 sat read 93% on 2L O2, pt issued and educated on post surgical back HEP Assessment : pt able to ambulate with supervision for safety, pt would benefit from continued therapy to increase endurance and decrease safety risk Plan for Treatment : continue POC CHRISTINA CHRISTIAN PTA - 05/14/2021 11:48 EDT Pain Assessment Pain Score During-Intervention : 0 CHRISTINA CHRISTIAN PTA - 05/14/2021 11:48 EDT Image 1 - Images currently included in the form version of this document have not been included in the text rendition version of the form. Anticipated Discharge Needs, OT/PT Anticipated Discharge to : Outpatient rehabilitation Recommend Continued Therapy at Discharge : Yes CHRISTINA CHRISTIAN PTA - 05/14/2021 11:48 EDT [place] PT Charges SPORTS EDITOR PT Therap. Exercise 15 min-SPORTS EDITOR : 1 PT Ther Activities Ea 15 Min-SPORTS EDITOR : 1 CHRISTINA CHRISTIAN PTA - 05/14/2021 11:48 EDT Electronically signed by Katie [facility] Conversion Supervising Nurse Cerner at 06/19/2022 8:57 AM CDT documented in this encounter Plan of Treatment Not on file documented as of this encounter Visit Diagnoses Not on filedocumented in this encounter Care Teams Group Segment Consultant Relationship Specialty Start Date End Date Saima Dorman, CHRISTI [address] [phone] PCP - General Nurse Practitioner 12/26/21 documented as of this encounter
--- OUTSIDE RECORDS SUMMARY | 2024-09-19 15:40 | XMS_ITS | Encounter Summary ---
Author Organization [employer] ([place], [place], [place], [place]) Address [address] [place] [address] Care Team Providers Care Older Adult Social Work Specialist Name Role Phone Saima Dorman APRN Primary Care Provider Encounter Details Date Type Department Care Team (Late st Contact Info) Description 05/15/2021 Transcribed Document [facility] [place] [address] [place] [address] ProviderKarena MD [address] [place] [address] Social History Tobacco Use Types [...] Date Juventino rded Speak language other than Jamaican at home Not on file 03/18/2023 Want [...] Conversion Note - Historical Provider, - 05/15/2021 1:12 PM CDT UM Authorization Entered On: 05/15/2021 13:12 EDT Performed On: 05/15/2021 13:12 EDT by ALE MERAZ RN-UTILIZATION MANAGEMENT REVIEW NON-EXEMPT Primary Insurance Authorization Authorization and Policy Numbers : Insurance 1 Health Plan: [employer] Policy Number: [id number] Authorization Number: [id number] Insurance 2 Health Plan: MEDICARE Policy Number: [id number] Authorization Number: Insurance Primary Name : [employer] [id number] Authorization Status-Primary : Admit approved Reference Number-Primary : [id number] Authorization Number-Primary : [id number] Number of Days Authorized-Primary : 2 Day(s) Authorized Service Begin Date-Primary : 05/13/2021 EDT Authorized Service End Date-Primary : 05/15/2021 EDT Historical Authorization Comments-Primary : Comment 1: Ref # per Day Dong, payor has access to EMR, 05/13-05/15, NRD 05/16 (ALE MERAZ RN-UTILIZATION MANAGEMENT REVIEW NON-EXEMPT 05/15/2021 13:11) Comment 2: clinicals submitted per [facility] for c/s auth (ALE MERAZ RN-UTILIZATION MANAGEMENT REVIEW NON-EXEMPT 05/15/2021 08:58) Comment 3: 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 CT guided on 05-13-21 per [facility] [employer] IP auth# [id number] 1 day approved (JOCELYN ARMSTRONG, Combination Welder 05/12/2021 15:44) ALE MERAZ RN-UTILIZATION MANAGEMENT REVIEW NON-EXEMPT - 05/15/2021 13:12 EDT documented in this encounter Plan of Treatment Not on file documented as of this encounter Visit Diagnoses Not on filedocumented in this encounter Care Teams Older Adult Social Work Specialist Relationship Specialty Start Date End Date Dorman, Saima, GRIPPER MACHINE OPERATOR [address] [phone] PCP - General Nurse Practitioner 12/26/21 documented as of this encounter
--- OUTSIDE RECORDS SUMMARY | 2024-09-19 15:40 | XMS_ITS | Encounter Summary ---
Author Organization [employer] ([place], [place], [place], [place]) Address [address] [place] [address] Care Team Providers Care Conference Translator Name Role Phone Saima Dorman APRN Primary Care Provider [phone] Encounter Details Date Type Department Care Team (Late st Contact Info) Description 05/15/2021 Transcribed Document [facility] [place] Medicine [address] [place] [address] ProviderKarena MD [address] [place] [address] Social History Tobacco Use Types [...] Date Juventino rded Speak language other than Cymraes at home Not on file 03/18/2023 Want [...] Conversion Note - Historical Provider, - 05/15/2021 3:26 PM CDT Nursing Discharge Summary Entered On: 05/15/2021 15:28 EDT Performed On: 05/15/2021 15:26 EDT by Amy Vidales RN-PATIENT CARE BEDSIDE NON-EXEMPT Discharge Documentation Discharge Date/Time : 05/15/2021 15:26 EDT Patient Disposition, General : Discharge Discharge To : Home with ambulatory/outpatient follow-up Accompanied By, Discharge : Daughter IV Discontinued : Yes Personal Belongings With Patient : Yes Prescriptions Given to Patient : Other: meds to beds Discharge Instructions Reviewed With, Opportunity For Questions Given : Patient Patient Education Completed : Yes Teaching Method : Explanation Teaching Evaluation : Other: per VRN Education Comment : Secure environment confirmed by vRN to protect patient privacy. Discussed appointmnets, meds, condions, diet, reccomendations and restrictions Amy Vidales RN-PATIENT CARE BEDSIDE NON-EXEMPT - 05/15/2021 15:26 EDT documented in this encounter Plan of Treatment Not on file documented as of this encounter Visit Diagnoses Not on filedocumented in this encounter Care Teams Conference Translator Relationship Specialty Start Date End Date Saima Dorman, CHRISTI [address] [place] [address] PCP - General Nurse Practitioner 12/26/21 documented as of this encounter
--- OUTSIDE RECORDS SUMMARY | 2024-09-19 15:40 | XMS_ITS | Encounter Summary ---
Author Organization [employer] ([place], [place], [place], [place]) Address [address] [place] [address] Care Team Providers Care Nursing Attendant Name Role Phone Saima Dorman APRN Primary Care Provider Encounter Details Date Type Department Care Team (Late st Contact Info) Description 05/15/2021 Transcribed Document [facility] Radiology [address] [place] [address] Chelsey Corea MD [address] [place] [address] Social History Tobacco Use Types Packs/Day Years Used Date Smoking Tobacco: Never Assessed Food Insecurity Answer Date Recorded Food run out past 12 months Not on file 03/01 Food did not last past 12 months Not on file 03/18/2023 Employment Answer Date Recorded Help finding and keeping a job Not on file 0 03/18/2023 Family and Community Support Answer Etd e Recorded Help with Day to Day Activities Not on file 03/18/2023 Feeling Lonely or Isolated Not on file 03/18 Educational Attainment Answer Date Juventino rded Speak language other than Citizen Of [place] at home Not on file 03/18/2023 Want [...] Conversion Note - Chelsey Corea MD - 05/15/2021 10:04 AM EDT Patient: MORAIMA LOYA Age: 56 years Sex: Female : 1965 Associated Diagnoses: None Author: ANDIE HILL PA-[facility] 05/15/21 CC: postop medical management S: Pt is doing ok. No f'/c/s. No n/v/d. (+) gas, (-) BM. No CP, SOA, palpitations. No cough or sputum. Urinating well. +post op pain. Using incentive spirometer. Much more awake today. Still has O2 on at 2L. HPI: 56 YO female presented to [facility] for a L4-[address] Bledsoe. Pt found to have advanced spondylolisthesis and failed conservative outpt interventions. Pt has elected for surgical intervention. We are asked to follow for postop medical management. Initial visit on floor -- pt is very sleepy from surgery and pain meds. Dtr is present and answers questions for pt. Denies prior stroke or seizure. Denies CO or cardiac arrhythmia. Denies DM. Denies COPD. [...] replacement. LAPS W/VAGINAL HYSTERECTOMY > 250 GRAMS (66236). septal plasty. cholecysectomy. bladder sling. cortisone back injections. FHx: Mother - HTN, CAD Father - Siblings - HTN SHx: No alcohol, tob or illicit drug use. Home Medications (20) Active buPROPion 150 mg, Oral, Daily cyclobenzaprine 10 mg, PRN, Oral, TID dilTIAZem 240 mg, Oral, Daily DULoxetine 30 mg, Oral, BID Dupixent 200 mg, SubCutaneous, I3Hmryy Lasix 40 mg, Oral, Daily levocetirizine 5 mg, Oral, Daily losartan 50 mg, Oral, Daily Lunesta 2 mg, Oral, At Bedtime Lyrica 200 mg, Oral, BID meloxicam 15 mg, Oral, Daily Milk Thistle oral capsule 1 Cap, Oral, Daily montelukast 10 mg, Oral, Daily Seward 7.5 mg-325 mg oral tablet 1 Tab, PRN, Oral, Q4H promethazine 25 mg, PRN, Oral, Q6H Protonix 40 mg, Oral, Daily rosuvastatin 5 mg, Oral, At Bedtime Spiriva , Inhalation, Daily spironolactone 25 mg, Oral, Daily Symbicort 160 mcg-4.5 mcg/inh inhalation aerosol 2 Puff, Inhalation, BID Allergies (1) Active Reaction penicillins Rash PE: Vitals Signs (last 24 hrs) Last Charted Minimum Maximum Temp 98.1 (MAY 15 06:39) 97.6 (MAY 14 09:42) 98.2 (MAY 14 14:30) Apical HR 78 (MAY 14 09:45) 78 (MAY 14 09:45) 78 (MAY 14 09:45) Mon HR 84 (MAY 15 06:39) 83 (MAY 14 14:30) 87 (MAY 14 21:31) Resp Rate 18 (MAY 15 06:39) 18 (MAY 14 21:31) 18 (MAY 14 21:31) SBP H 158 (MAY 15 06:39) 129 (MAY 14 09:42) H 158 (MAY 15 06:39) DBP 80 (MAY 15 06:39) 63 (MAY 14 09:42) 80 (MAY 15 06:39) MAP 98 (MAY 15 06:39) 78 (MAY 14 09:42) 98 (MAY 15 06:39) SpO2 94 (MAY 15 06:39) 94 (MAY 15 06:39) 98 (MAY 14 14:30) GEN: Alert, awake, NAD; CV: S1S2, no murmur. No LE edema Resp: decreased BS, NL; no wheezes or rhonchi. Abd: Soft, NT, ND +BS Skin: no rashes on inspection and palpation. Ext: No LE edema. No joint edema, erythema. Neuro: O x 3 Data: Labs (Last four charted values) WBC H 10.7 (MAY 15) H 14.1 (APR 16) H 11.0 (APR 14) HB L 10.4 (MAY 15) 11.5 (APR 16) 14.3 (APR 14) HCT 34.7 (MAY 15) 38.2 (MAY 14) 44.9 (APR 14) Plt 260 (MAY 15) 304 (APR 16) H 410 (APR 14) Na 139 (MAY 15) L 134 (MAY 14) 136 (APR 14) K H 5.5 (MAY 15) H 5.5 (APR 16) H 5.9 (APR 16) 3.9 (APR 14) Cl 109 (MAY 15) 105 (APR 16) 103 (APR 14) CO2 28 (MAY 15) 23 (APR 16) 25 (APR 14) BUN 14 (MAY 15) 17 (APR 16) 20 (APR 14) Cr 0.90 (MAY 15) 1.00 (APR 16) H 1.30 (APR 14) Glu R 95 (MAY 15) H 113 (APR 16) H 115 (APR 14) Ca 8.9 (MAY 15) 9.3 (APR 16) H 10.2 (MAY 12) Preop: EKG Ventricular Rate : 78 BPM Atrial Rate : 78 BPM P-R Interval : 170 ms QRS Duration : 94 ms Q-T Interval : 366 ms QTC Calculation(Bezet) : 417 ms P Schaller : 27 degrees R Schaller : 24 degrees T Schaller : 26 degrees Normal sinus rhythm Poor R wave progression Confirmed by Mona GUTIERREZ SURESH ([id number]), video tape editor Odilia Vines ([id number]) on 05/12/2021 4:41:36 PM Assessment/Plan: Advanced spondylolisthesis -s/p L4-[address] Bledsoe. -bowel regimen -incentive spirometer -PT/OT -Pain management deferred to surgeon -will monitor hb/hct daily for signs of ongoing acute blood loss -will monitor bun/cr daily for signs of dehydration, prerenal azotemia -will monitor for signs/symptoms of post-op wound infection or hospital acquired infectious process Hyperkalemia -give 250 ml of fluid -will restart lasix. -hold spironolactone -may be due to hemolysis -f/u with PCP Acute hypoxia -suspect due to medications. -work on weaning O2 here. CHF -lungs due to sound congested. -monitor for congestion/acute exacerbation. HTN -hold ARB and spironolactone and lasix, reassess BP and renal fxn -continue diltiazem - Monitor bp; add PRN's ZIGGY -CPAP at home -needs her O2 fixed to attach to her cpap at home. HLD -continue statin Chronic constipation -bowel regimen while at hospital. preop pyuria -likely contamination. Had 3 or more organisms suggesting contaminate on cx. No abx needed. DVT prophylaxis: -SCDs GI prophylaxis: -on PPI Disposition: -assuming she does well with therapy later today; plan per neurosurgery is for DC home -OK to discharge from IM standpoint -pain meds per surgery -bowel regimen at home -IS at home Assessment and treatment plan made in conjunction with Tadeo Corea MD documented in this encounter Plan of Treatment Not on file documented as of this encounter Visit Diagnoses Not on filedocumented in this encounter Care Teams Nursing Attendant Relationship Specialty Start Date End Date Saima Dorman, PRECIPITATE WASHER [address] [address] PCP - General Nurse Practitioner 12/26/21 documented as of this encounter
--- OUTSIDE RECORDS SUMMARY | 2024-09-19 15:40 | XMS_ITS | Encounter Summary ---
Author Organization [employer] ([place], [place], [place], [place]) Address [address] [place] [address] Care Team Providers Care Social Economist Name Role Phone Saima Dorman APRN Primary Care Provider Encounter Details Date Type Department Care Team (Late st Contact Info) Description 05/15/[address] [facility] [place] Family Medicine [address] [place] [address] ProviderKarena MD [address] [place] [address] Social History Tobacco Use Types [...] Date Juventino rded Speak language other than Norwegian at home Not on file 03/18/2023 Want [...] Conversion Note - Historical ProviderMD - 05/15/2021 8:58 AM CDT UM Authorization Entered On: 05/15/2021 8:59 EDT Performed On: 05/15/2021 8:58 EDT by ALE MERAZ RN-UTILIZATION MANAGEMENT REVIEW NON-EXEMPT Primary Insurance Authorization Authorization and Policy Numbers : Insurance 1 Health Plan: [employer] Policy Number: [id number] Authorization Number: [id number] Insurance 2 Health Plan: MEDICARE Policy Number: [id number] Authorization Number: Insurance Primary Name : [employer] [id number] Authorization Status-Primary : Admit approved Authorization Number-Primary : [id number] Number of Days Authorized-Primary : 0 Day(s) Authorized Service Begin Date-Primary : 05/13/2021 EDT Authorized Service End Date-Primary : 05/13/2021 EDT Authorization Comments-Primary : clinicals submitted per [employer] for c/s auth Historical Authorization Comments-Primary : Comment 1: 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 CT guided on 05-13-21 per [facility] [employer] IP auth# [id number] 1 day approved (JOCELYN ARMSTRONG, Substance Abuse Prevention Coordinator 05/12/2021 15:44) ALE MERAZ RN-UTILIZATION MANAGEMENT REVIEW NON-EXEMPT - 05/15/2021 8:58 EDT documented in this encounter Plan of Treatment Not on file documented as of this encounter Visit Diagnoses Not on filedocumented in this encounter Care Teams Social Economist Relationship Specialty Start Date End Date Saima Dorman, PARTS SPECIALIST [address] [phone] PCP - General Nurse Practitioner 12/26/21 documented as of this encounter
--- OUTSIDE RECORDS SUMMARY | 2024-09-19 15:40 | XMS_ITS | Encounter Summary ---
Author Organization Healthcare Address [address] [place] [address] Care Team Providers Care Binder Cutter Name Role Phone DandyAnnieyair Persaud APRN Primary Care Provider [phone] Reason for Referral * Consultation (Routine) - Closed Specialty Diagnoses / Procedures Referred By Jordan watson Referred To Contact Gastroenterology Diagnoses Abnormal CT scan, liver Fatty liver Karolyn Ramos PA [address] [facility] [address] [place] [address] Phone: tel: fax: Referral ID Status Reason Start Date Expiration Date V isits Requested Visits Authorized [id number] Closed Specialty Services Required 01/18/2023 07/19/2024 1 1 Encounter Details Date Type Department Care Team (Late st Contact Info) Description 01/18/2023 Community [facility] Community Practice [address] [place] [address] Karolyn Ramos PA [address] [place] [address] scan, liver (Primary Dx); Fatty liver Social History Tobacco Use Types Packs/Day Years Used Date Smoking Tobacco: Never Passive Smoke Exposure: Yes Smokeless Tobacco: Never Alcohol Use Standard Drinks/Week Comments Not Currently 0 (1 standard drink = 0.6 oz pur e alcohol) PHQ-2 Answer Date Recorded Patient Health Questionnaire-2 Score 0 08/06/2022 PHQ-2A Answer Date Recorded Patient Health Questionnaire-2 Score 0 08/06/2022 Comments Unknown Sex and Gender Information Value Date Recorded Sex Assigned at Not on file Legal Sex Female 7:27 PM EDT Gender Identity Not on file Sexual Orientation Not on file documented as of this encounter Plan of Treatment Upcoming Encounters Date Type Department Care Team (Late st Contact Info) Description 10/23/2024 11:20 AM EDT [facility] Visit [facility] [address] [place] [address] Quin Levy MD [address] [place] [address] Scheduled Referrals Name Type Priority Associated Diagnoses Order Schedule Ambulatory referral to Gastroenterology Outpatient Referral Routine Abnormal CT scan, liver Fatty liver 1 Occurrences starting 01/18/2023 until 07/18/2024 documented as of this encounter Visit Diagnoses Diagnosis Abnormal CT scan, liver- Primary Fatty liver Other chronic nonalcoholic liver disease documented in this encounter Additional Health Concerns Assessment Noted Time A fall risk assessment has been complete d for the patient 09/17/2022 4:07 PM EDT A Body Mass Index follow-up plan has been documented for the patient 09/17/2022 4:34 PM EDT documented as of this encounter Care Teams Binder Cutter Relationship Specialty Start Date End Date Saima Dorman APRN [address] [place] [address] PCP - General 07/12/20 documented as of this encounter
--- OUTSIDE RECORDS SUMMARY | 2024-09-19 15:40 | XMS_ITS | Encounter Summary ---
Author Organization [employer] ([place], [place], [place], [place]) Address [address] [place] [address] Care Team Providers Care Adjunct Physics Instructor Name Role Phone Saima Dorman APRN Primary Care Provider Encounter Details Date Type Department Care Team (Late st Contact Info) Description 05/13/2021 Transcribed Document [facility] [address] [facility] [address] [address] Alejandro Bledsoe MD [facility] [place], [place] [id number] Social History Tobacco Use Types Packs/Day Years [...] Date Juventino rded Speak language other than Faroese at home Not on file 03/18/2023 Want [...] Note - Alejandro Bledsoe MD - 05/13/2021 11:45 AM EDT DATE OF PROCEDURE: 05/13/2021 SURGEON: Alejandro Bledsoe MD PRIMARY CARE PHYSICIAN: Dr. Jose Luis Barker. PREOPERATIVE DIAGNOSIS: Unstable L4-5 spondylolisthesis. POSTOPERATIVE DIAGNOSIS: Unstable L4-5 spondylolisthesis. INDICATION FOR PROCEDURE: Mechanical back pain and lumbar radiculopathy, unresponsive to conservative management. PROCEDURES: 1. Minimally invasive L4-5 transforaminal lumbar interbody fusion. 2. Minimally invasive L4-5 decompressive laminectomy. 3. Intraoperative spinal stereotactic navigation. 4. Use of the operating microscope. SOCIAL WORK PROGRAM COORDINATOR: Matteo Lee PA-C TYPE OF ANESTHESIA: GEA. DESCRIPTION/PROCEDURE IN DETAIL: Once consent was noted to be on chart, Mrs. Loya was taken to the operating room. She was anesthetized and placed into the prone position on a Joshua spine frame. All pressure points were carefully checked and padded. She was prepped and draped in usual sterile fashion. Preoperative antibiotics were given. Fluoroscopy was draped in the field and used throughout the case for radiographic guidance. A time-out was called. A 3D spin was performed and stereotactic navigation was registered. The navigation was used to place 2 Steinmann pins into the right iliac crest. A two-pin fixator was placed on these pins and reference array for further stereotactic navigation. Two skin incisions were made 5.5 cm off midline at L4-5. The fascia was incised on the left and a tubular dilator system was docked on the left L4-5 segment. The operating microscope was brought into the field. Soft tissue was removed off the left L4-5 segment and a facetectomy and hemilaminectomy with minimally invasive decompression across the midline was performed. Full decompression of the segment was achieved. The L5 nerve root was retracted medially. An annulotomy was performed and a complete diskectomy performed. ViviGen along with recycled lamina and facet was placed down into the disk space inside of a conduit cage 10 mm in height. Fluoroscopy showed good placement of the cage at the midline and well positioned in the lateral plate. I verified that the descending and exiting nerve roots were free at the L4-5 segment. No CSF was visualized throughout this procedure. Meticulous hemostasis was obtained after the wound was copiously irrigated, and the retractor was removed. A 3D spin was then performed with a [facility] fluoroscopic unit. Stereotactic navigation was registered and confirmed. 45 mm Viper Prime screws were then stereotactically guided into the L4 and L5 pedicle. AP and lateral fluoroscopy showed good placement of the screws. I could tell by placing the screws that her bone quality was somewhat soft as well as from the intraoperative x-rays. For this reason, we augmented the fenestrated screws with Confidence cement, placing about 1.5 to 2 mL of cement into each screw. The glue was allowed to harden, and then a jerry was placed from L4 to L5 and set screws torqued to factory specifications. We performed some reduction, but did not aggressively reduce for perfect alignment given her bone quality. Again, I noted that from the decompression that the nerves were free in this current small amount of anterolisthesis. Set screws were torqued to factory specifications. Extension tabs were removed. Meticulous hemostasis was obtained and 2 Vicryl closed the space and closed the skin subcuticularly. The skin was stapled. Bacitracin and Covaderm were applied. Matteo Lee assisted throughout the surgery and helped perform the closure. SPECIMEN SENT: None. ESTIMATED BLOOD LOSS: 100 mL. DRAINS: None. COMPLICATIONS: None. /[id number] MD PEDRO Abreu/AQ / MPT / MODL /[id number] CC: Dr. Jose Luis Barker documented in this encounter Plan of Treatment Not on file documented as of this encounter Visit Diagnoses Not on filedocumented in this encounter Care Teams Adjunct Physics Instructor Relationship Specialty Start Date End Date Saima Dorman, BUILDING WRECKER [address] [place] [address] PCP - General Nurse Practitioner 12/26/21 documented as of this encounter
--- OUTSIDE RECORDS SUMMARY | 2024-09-19 15:40 | XMS_ITS | Encounter Summary ---
Author Organization [employer] ([place], [place], [place], [place]) Address [address] [place] [address] Care Team Providers Care Dry House Wheeler Name Role Phone Saima Dorman APRN Primary Care Provider Encounter Details Date Type Department Care Team (Late st Contact Info) Description 05/13/2021 Transcribed Document [facility] [place] [place] Family Medicine [address] [place] [address] ProviderKarena MD [address] [place] [address] Social History Tobacco Use Types [...] Date Juventino rded Speak language other than Burkinan at home Not on file 03/18/2023 Want [...] EDT by Marian Erickson RN Intervention Information: oxyCODONE Performed by Marian Erickson RN on 05/14/2021 05:45:00 EDT oxyCODONE,5mg Oral,Pain (Mild 1-3) Pain Assessment Pain Assessment : Follow-up assessment Pain Scale Goal : 4 Location : Back Pain Improved by Intervention : Yes Marian Erickson RN - 05/14/2021 6:14 EDT documented in this encounter Plan of Treatment Not on file documented as of this encounter Visit Diagnoses Not on filedocumented in this encounter Care Teams Dry House Wheeler Relationship Specialty Start Date End Date Saima Dorman, CHRISTI [address] [id number] PCP - General Nurse Practitioner 12/26/21 documented as of this encounter
--- OUTSIDE RECORDS SUMMARY | 2024-09-19 15:40 | XMS_ITS | Encounter Summary ---
Author Organization [employer] ([place], [place], [place], [place]) Address [address] [place] [address] Care Team Providers Care Line Installer Name Role Phone Saima Dorman APRN Primary Care Provider Encounter Details Date Type Department Care Team (Late st Contact Info) Description 05/15/2021 Transcribed Document [facility] [place] Family Medicine [address] [place] [address] ProviderKarena MD [address] [place] [address] Social History Tobacco Use Types [...] Date Juventino rded Speak language other than [place] Islander at home Not on file 03/18/2023 [...] Conversion Note - Historical Provider, - 05/15/2021 11:17 AM CDT Meds to Bed Enrollment Entered On: 05/15/2021 11:17 EDT Performed On: 05/15/2021 11:17 EDT by Jaqui lFores Pharmacist Meds to Bed Enrollment Patient Enrollment Decision: : Yes/enroll in meds to bed program Meds to Beds Comment : svc line referral Jaqui Flores Pharmacist - 05/15/2021 11:17 EDT documented in this encounter Plan of Treatment Not on file documented as of this encounter Visit Diagnoses Not on filedocumented in this encounter Care Teams Line Installer Relationship Specialty Start Date End Date Saima Dorman, CALL CENTER DISPATCHER [address] [phone] PCP - General Nurse Practitioner 12/26/21 documented as of this encounter
--- OUTSIDE RECORDS SUMMARY | 2024-09-19 15:40 | XMS_ITS | Encounter Summary ---
Author Organization [employer] ([place], [place], [place], [place]) Address [address] [place] [address] Care Team Providers Care Health Inspector Name Role Phone Saima Dorman APRN Primary Care Provider [phone] Encounter Details Date Type Department Care Team (Late st Contact Info) Description 05/15/2021 Transcribed Document [facility] [place] [address] [place] [address] ProviderKarena MD [address] [place] [address] Social History Tobacco Use Types [...] Date Juventino rded Speak language other than Greek at home Not on file 03/18/2023 Want [...] Conversion Note - Historical Provider, - 05/15/2021 3:12 PM CDT Stroke/Warfarin Instructions Entered On: 05/15/2021 15:13 EDT Performed On: 05/15/2021 15:12 EDT by Amy Vidales RN-PATIENT CARE BEDSIDE NON-EXEMPT Stroke/Warfarin Instructions Stroke/TIA Discharge Ins : N/A Warfarin Discharge Ins : N/A Amy Vidales RN-PATIENT CARE BEDSIDE NON-EXEMPT - 05/15/2021 15:12 EDT Electronically signed by Jameel Wilson Conversion Business Continuity Management Director [employer]ner at 06/16/2022 11:05 AM CDT documented in this encounter Plan of Treatment Not on file documented as of this encounter Visit Diagnoses Not on filedocumented in this encounter Care Teams Health Inspector Relationship Specialty Start Date End Date Saima Dorman, ASSOCIATE PROFESSOR OF PHILOSOPHY [address] [phone] PCP - General Nurse Practitioner 12/26/21 documented as of this encounter
--- OUTSIDE RECORDS SUMMARY | 2024-09-19 15:40 | XMS_ITS | Encounter Summary ---
Author Organization [employer] ([place], [place], [place], [place]) Address [address] [place] [address] Care Team Providers Care Piped Pocket Machine Operator Name Role Phone Saima Dorman APRN Primary Care Provider Encounter Details Date Type Department Care Team (Late st Contact Info) Description 05/15/2021 Transcribed Document [facility] [place] [address] [place] [address] ProviderKarena MD [address] [place] [address] Social History Tobacco Use Types [...] Date Juventino rded Speak language other than Prydeinig at home Not on file 03/18/2023 Want [...] as of this encounter Miscellaneous Notes * Ceramanda Conversion Note - Historical Provider, - 05/15/2021 1:11 PM CDT UM Authorization Entered On: 05/15/2021 13:12 EDT Performed On: 05/15/2021 13:11 EDT by ALE MERAZ RN-UTILIZATION MANAGEMENT REVIEW NON-EXEMPT Primary Insurance Authorization Authorization and Policy Numbers : Insurance 1 Health Plan: HUMANA Policy Number: [id number] Authorization Number: [id number] Insurance 2 Health Plan: MEDICARE Policy Number: [id number] Authorization Number: Insurance Primary Name : [employer] [id number] Authorization Status-Primary : Admit approved Reference Number-Primary : [id number] Authorization Number-Primary : [id number] Number of Days Authorized-Primary : 0 Day(s) Authorized Service Begin Date-Primary : 05/13/2021 EDT Authorized Service End Date-Primary : 05/13/2021 EDT Authorization Comments-Primary : Ref # per Day Dong, payor has access to EMR, 05/13-05/15, NRD 05/16 Historical Authorization Comments-Primary : Comment 1: clinicals submitted per [facility] for c/s auth (ALE MERAZ RN-UTILIZATION MANAGEMENT REVIEW NON-EXEMPT 05/15/2021 08:58) Comment 2: 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 CT guided on 05-13-21 per [facility] [employer] IP auth# [id number] 1 day approved (JOCELYN ARMSTRONG, Auto Body Worker 05/12/2021 15:44) ALE MERAZ RN-UTILIZATION MANAGEMENT REVIEW NON-EXEMPT - 05/15/2021 13:11 EDT documented in this encounter Plan of Treatment Not on file documented as of this encounter Visit Diagnoses Not on filedocumented in this encounter Care Teams Piped Pocket Machine Operator Relationship Specialty Start Date End Date Saima Dorman, CHRISTI [address] [address] PCP - General Nurse Practitioner 12/26/21 documented as of this encounter
--- OUTSIDE RECORDS SUMMARY | 2024-09-19 15:40 | XMS_ITS | Encounter Summary ---
Author Organization [employer] ([place], [place], [place], [place]) Address [address] [address] Care Team Providers Care Communication Specialist Name Role Phone Saima Dorman APRN Primary Care Provider Encounter Details Date Type Department Care Team (Late st Contact Info) Description 05/15/2021 Transcribed Document [facility] [place] [address] [place] [address] ProviderKarena MD [address] [place] [address] Social History Tobacco Use Types [...] Conversion Note - Historical Provider, - 05/15/2021 2:00 AM CDT Pain Assessment Entered On: 05/15/2021 6:34 EDT Performed On: 05/15/2021 2:35 EDT by MARIA FERNANDA SHETTY RN-PATIENT CARE BEDSIDE NON-EXEMPT Intervention Information: acetaminophen Performed by MARIA FERNANDA SHETTY RN-PATIENT CARE BEDSIDE NON-EXEMPT on 05/15/2021 01:35:00 EDT acetaminophen,650mg Oral Pain Assessment Pain Assessment : Follow-up assessment Pain Scale Goal : 4 Pain Scale Used : 0-10 Scale MARIA FERNANDA SHETTY RN-PATIENT CARE BEDSIDE NON-EXEMPT - 05/15/2021 6:34 EDT Pain Scale Intensity : 3 MARIA FERNANDA SHETTY RN-PATIENT CARE BEDSIDE NON-EXEMPT - 05/15/2021 6:34 EDT Image 4 - Images currently included in the form version of this document have not been included in the text rendition version of the form. documented in this encounter Plan of Treatment Not on file documented as of this encounter Visit Diagnoses Not on filedocumented in this encounter Care Teams Communication Specialist Relationship Specialty Start Date End Date Saima Dorman, CHRISTI [address] [phone] PCP - General Nurse Practitioner 12/26/21 documented as of this encounter
--- OUTSIDE RECORDS SUMMARY | 2024-09-19 15:40 | XMS_ITS | Encounter Summary ---
Author Organization [employer] ([place], [place], [place], [place]) Address [address] [place] [address] Care Team Providers Care Ferryboat Deckhand Name Role Phone Saima Dorman APRN Primary Care Provider Encounter Details Date Type Department Care Team (Late st Contact Info) Description 05/15/2021 Transcribed Document [facility] [place] [address] [place] [address] ProviderKarena MD [address] [place] [address] Social History Tobacco Use Types [...] Date Juventino rded Speak language other than Cameroonian at home Not on file 03/18/2023 Want [...] Conversion Note - Historical Provider, - 05/15/2021 8:55 AM CDT Pain Assessment Entered On: 05/15/2021 14:08 EDT Performed On: 05/15/2021 13:16 EDT by Jamie Torres STUDENT-KARTIK Intervention Information: acetaminophen-HYDROcodone(Pending Validation) Performed by Jamie Torres STUDENT-CLINICAL on 05/15/2021 12:16:00 EDT acetaminophen-HYDROcodone,1Tab Oral,Pain (Moderate 4-6) Pain Assessment Pain Assessment : Follow-up assessment Pain Scale Goal : 4 Pain Scale Used : 0-10 Scale Jamie Torres STUDENT-CLINICAL - 05/15/2021 14:08 EDT (Not Validated) Pain Scale Intensity : 2 Jamie Torres STUDENT-CLINICAL - 05/15/2021 14:08 EDT [Not Validated] Image 4 - Images currently included in the form version of this document have not been included in the text rendition version of the form. documented in this encounter Plan of Treatment Not on file documented as of this encounter Visit Diagnoses Not on filedocumented in this encounter Care Teams Ferryboat Deckhand Relationship Specialty Start Date End Date Saima Dorman, CHRISTI [address] [phone] PCP - General Nurse Practitioner 12/26/21 documented as of this encounter
--- OUTSIDE RECORDS SUMMARY | 2024-09-19 15:40 | XMS_ITS | Encounter Summary ---
Author Organization [employer] ([place], [place], [place], [place]) Address [address] [place] [address] Care Team Providers Care Spring Machine Operator Name Role Phone Saima Dorman APRN Primary Care Provider Encounter Details Date Type Department Care Team (Late st Contact Info) Description 05/19/2021 Transcribed Document [facility] [place] [address] [place] [address] ProviderKarena MD [address] [place] [address] Social History Tobacco Use Types [...] Date Juventino rded Speak language other than Scottish at home Not on file 03/18/2023 Want [...] Cerner Conversion Note - Historical Provider, - 05/19/2021 2:04 PM CDT UM Authorization Entered On: 05/19/2021 14:04 EDT Performed On: 05/19/2021 14:04 EDT by Lucy Vidales, Acting Professor Primary Insurance Authorization Authorization and Policy Numbers : Insurance 1 Health Plan: HUMANA Policy Number: [id number] Authorization Number: [id number] Insurance 2 Health Plan: MEDICARE Policy Number: [id number] Authorization Number: Insurance Primary Name : [employer] - [id number] Authorization Status-Primary : Approved Auth/Referral Contact Name-Primary : [place] Reference Number-Primary : [id number] Authorization Number-Primary : [id number] Number of Days Authorized-Primary : 2 Day(s) Authorized Service Begin Date-Primary : 05/13/2021 EDT Authorized Service End Date-Primary : 05/15/2021 EDT Authorization Comments-Primary : Discharge summary faxed. Historical Authorization Comments-Primary : Comment 1: Ref # per Day Dong, payor has access to EMR, 05/13-05/15, NRD 05/16 (ALE MERAZ RN-UTILIZATION MANAGEMENT REVIEW NON-EXEMPT 05/15/2021 13:11) Comment 2: clinicals submitted per [facility] for c/s auth (ALE MERAZ RN-UTILIZATION MANAGEMENT REVIEW NON-EXEMPT 05/15/2021 08:58) Comment 3: 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 CT guided on 05-13-21 per [facility] [employer] IP auth# [id number] 1 day approved (JOCELYN ARMSTRONG, Elementary Supervisor 05/12/2021 15:44) Lucy Vidales, Acting Professor - 05/19/2021 14:04 EDT Electronically signed by Katie [facility] Conversion Associate Store Director Cerner at 06/16/2022 11:03 AM CDT documented in this encounter Plan of Treatment Not on file documented as of this encounter Visit Diagnoses Not on filedocumented in this encounter Care Teams Spring Machine Operator Relationship Specialty Start Date End Date Saima Dorman, FOUNDRY PROCESS ENGINEER [address] [place] [address] PCP - General Nurse Practitioner 12/26/21 documented as of this encounter
--- OUTSIDE RECORDS SUMMARY | 2024-09-19 15:40 | XMS_ITS | Encounter Summary ---
Author Organization [employer] ([place], [place], [place], [place]) Address [address] [place] [address] Care Team Providers Care Medical Genetics Director Name Role Phone Saima Dorman APRN Primary Care Provider Encounter Details Date Type Department Care Team (Late st Contact Info) Description 05/15/2021 Transcribed Document [facility] [place] Family Medicine [address] [place] [address] ProviderKarena MD [address] [place] [address] Social History Tobacco Use Types [...] Date Juventino rded Speak language other than South Korean at home Not on file 03/18/2023 Want [...] Conversion Note - Historical Provider, - 05/15/2021 3:13 PM CDT Nursing Discharge Summary Entered On: 05/15/2021 15:14 EDT Performed On: 05/15/2021 15:13 EDT by Amy Vidales RN-PATIENT CARE BEDSIDE NON-EXEMPT Discharge Documentation Discharge Date/Time : 05/15/2021 15:13 EDT Patient Disposition, General : Discharge Discharge To : Home with ambulatory/outpatient follow-up Mode Of Departure, General Discharge : Private vehicle Accompanied By, Discharge : Daughter IV Discontinued : Yes Personal Belongings With Patient : Yes Prescriptions Given to Patient : Other: meds to beds Discharge Instructions Reviewed With, Opportunity For Questions Given : Patient Patient Education Completed : Yes Teaching Method : Printed materials Education Comment : Secure environment confirmed by vRN to protect patient privacy. Discussed appointmnets, meds, condions, diet, reccomendations and restrictions Amy Vidales RN-PATIENT CARE BEDSIDE NON-EXEMPT - 05/15/2021 15:13 EDT documented in this encounter Plan of Treatment Not on file documented as of this encounter Visit Diagnoses Not on filedocumented in this encounter Care Teams Medical Genetics Director Relationship Specialty Start Date End Date Saima Dorman APRN [address] [phone] PCP - General Nurse Practitioner 12/26/21 documented as of this encounter
--- OUTSIDE RECORDS SUMMARY | 2024-09-19 15:40 | XMS_ITS | Encounter Summary ---
Author Organization [employer] ([place], [place], [place], [place]) Address [address] [place] [address] Care Team Providers Care Farmer And Grazier Name Role Phone Saima Dorman APRN Primary Care Provider Encounter Details Date Type Department Care Team (Late st Contact Info) Description 05/13/2021 Transcribed Document [facility] [place] Medicine [address] [place] [address] ProviderKarena MD [address] [place] [address] Social History Tobacco Use Types [...] Date Juventino rded Speak language other than Gambian at home Not on file 03/18/2023 Want [...] Provider, - 05/13/2021 10:40 AM CDT Evaluation, Physical Therapy Entered On: 05/13/2021 16:56 EDT Performed On: 05/13/2021 16:37 EDT by AVA MENA, PT General Information, PT Visit Type, PT : Initial evaluation Patient Orders : Order Date Order Ordering MD 05/13/2021 10:40 Physical Therapy Eval and Treat Ordered By: ROSALEE ZHENG MD-SN Active Diagnoses : 05/13/2021 12:00 Spondylolisthesis, lumbar region Therapy Diagnosis, PT : functional decline after back sx Onset of Problem, PT : 05/13/2021 EDT Admission Date : 05/13/2021 06:34 Personal Devices : Personal Devices No Devices Recorded Assistive Devices : Assistive Devices No Devices Recorded Precautions in Place : Log roll precautions, Spinal Precautions General Information Comment, PT : 56 female adm to [facility] 05/13 for L4-5 Spondylolisthesis Sx 05/13 for L4-5 Decomp Lami, L405 transforaminal Lumbar Interbody fusion PMHx significant for OA< CHF,Fibromyalgia, HBP, HLD AVA MENA, PT - 05/13/2021 16:40 EDT General Status Patient Received Status : Other: on BSC, daughter present Treatment Start Time : 05/13/2021 16:07 EDT Patient Left Status : Up in chair, RN/PCT informed, Family/Visitors at bedside, Communication board completed, All needs met and within reach RN/PCT Informed Comment : yes per OSIEL Valentine Treatment End Time : 05/13/2021 16:37 EDT Treatment Time : 30 Minute(s) Actual Treatment Time : 30 Minute(s) AVA MENA, PT - 05/13/2021 16:40 EDT History and Environment Living Situation, Therapy : Home Patient Lives With : Spouse Persons Assisting Patient at Home : Alone Professional Skilled Services : None Persons Providing Information : Patient Home Equipment Therapy, PT : Bar, grab, Commode, Shower Equipment, Walker Commode : Commode, bedside Shower Equipment : Shower Chair, with back Walker : Walker, standard Home Setup : One story Bedroom Location : Main level Bathroom #1 Location : Main level Bathroom #1 Features : Toilet, Walk-In shower Stairs : Yes Stair Location(s) : Outside Outside Stairs, Number of Steps : 1 Railing Outside : No Ramp : No AVA MENA PT - 05/13/2021 16:40 EDT Prior Level of Function PT GRID Prior LOF Ambulation, Household : Independent Prior LOF Ambulation, Community : Independent Prior LOF Bed Mobility : Independent Prior LOF Toileting : Independent Prior LOF Transfer : Independent AVA MENA PT - 05/13/2021 16:40 EDT Prior LOF Assist with ADL Comment : AD equipment from prior TKAs AVA MENA PT - 05/13/2021 16:40 EDT Upper Extremity Right UE Active ROM : WFL Right UE Strength : WFL Left UE Active ROM : WFL Left UE Strength : WFL AVA MENA PT - 05/13/2021 16:40 EDT Lower Extremity RLE Active ROM : WFL Right LE Strength : [facility] LLE Active ROM : L Left LE Strength : WFL AVA MENA PT - 05/13/2021 16:40 EDT Functional Mobility Mobility Grid Sit to Stand : Supervision/set-up Stand to Sit : Supervision/set-up AVA MENA PT - 05/13/2021 16:40 EDT Sit to Stand Device : Belt, gait, Rails, Walker, front wheel Stand to Sit Device : Belt, gait, Rails, Walker, front wheel AVA MENA PT - 05/13/2021 16:40 EDT Gait Training/Assessment, PT Weight Bearing Status : Full Gait Assistance Level : Supervision Walking Distance : approx 100 ft Ambulatory Devices : Gait belt, Walker, front wheel, Other: IV, 3 L O2 Gait Deviations : Yes Left Lower Gait Deviation : Katheryn, decreased, Wide base of support Right Lower Gait Deviation : Katheryn, decreased, Wide base of support AVA MENA PT - 05/13/2021 16:40 EDT Cognition Assessment, PT Orientation : Oriented x 4 Safety/Judgment Comment : good Follows Basic Command Assessment : yes Attention Assessment : Present AVA MENA PT - 05/13/2021 16:40 EDT Edu Topics Physical Therapy Education Grid Balance Training : Returns demonstration Bed Mobility Training : Needs further teaching (Comment: log roll [AVA MENA, PT - 05/13/2021 16:40 EDT] ) Gait Training : Returns demonstration Role of Physical Therapy : Verbalizes understanding Safety : Returns demonstration, Needs reinforcement Stair Training : Needs further teaching Therapeutic Exercises : Needs further teaching Transfer Training : Returns demonstration Use of Assistive Device : Returns demonstration AVA MENA, PT - 05/13/2021 16:40 EDT Indication Assesessment, PT Physical Therapy Indicated : Yes PT Problem List : Impaired, bed mobility, Impaired, endurance tolerance, Impaired, gait, Impaired, transfers, Pain limiting function Potential Barriers To Therapy : Acuity of Illness, Pain Rehabilitation Potential : Good AVA MENA, PT - 05/13/2021 16:40 EDT Plan of Care, PT PT Tx Plan/Goals Established w Patient : Yes PT Frequency Rehab : Daily, twice (bid) PT Treatments Planned : Bed mobility training, Gait training, Pain management, Safety education, Stair training, Therapeutic exercises, Transfer training AVA MENA, PT - 05/13/2021 16:40 EDT Process Eng Goals Mobility/Bed Mobility LTG PT Grid Goal #1 Goal #2 Activity : Supine to sit Sit to stand Assist : Independent, modified Independent, modified Equipment : Bed, hospital Walker, front wheel Date to Meet : 05/27/2021 EDT 05/27/2021 EDT Goal Status : Intial Goal Intial Goal AVA MENA PT - 05/13/2021 16:40 EDT AVA MENA PT - 05/13/2021 16:40 EDT Ambulation LTG Grid Goal #1 Device : Walker, front wheel Distance : 350 ft w/O2 sts >88% Assist : Independent, modified Date to Meet : 05/27/2021 EDT Goal Status : Intial Goal AVA MENA, PT - 05/13/2021 16:40 EDT Stairs LTG Grid Goal #1 Device : Walker, front wheel Number of Steps : 1 Handrail(s) : No handrails Assist : Supervision or set-up Date to Meet : 05/28/2021 EDT Goal Status : Intial Goal AVA MENA PT - 05/13/2021 16:40 EDT Treatment Note Subjective Comment : agreed to PTx eval Patient's Response to Treatment : good Additional Objective Information : assisted daughter donning pt's underwear secured recliner for pt and transferred her bed to chair Assessment : good effort, needs occ reminders for safety with transitional movements good candidate for short term PTx post back sx and likely will do well at home with family assistance Plan for Treatment : iniate POC for mobility needs HEP for back pt AVA MENA PT - 05/13/2021 16:40 EDT Pain Assessment Pain Scaled Used : 0-10 Pain scale Pain Score Pre-Intervention : 3 Location : Back, Incisional Onset : Constant AVA MENA PT - 05/13/2021 16:40 EDT Image 1 - Images currently included in the form version of this document have not been included in the text rendition version of the form. Anticipated Discharge Needs, OT/PT Anticipated Discharge to : Home, with family care Anticipated Home Equipment : Walker Recommend Continued Therapy at Discharge : No Walker : Walker, front wheel AVA MENA PT - 05/13/2021 16:40 EDT [place] PT Charges PT Ther Activities Ea 15 Min : 1 PT Eval Low Complexity : 1 AVA MENA PT - 05/13/2021 16:40 EDT Electronically signed by Jameel Wilson Conversion Biofuels Technology Development Manager Teresa at 06/16/2022 11:06 AM CDT documented in this encounter Plan of Treatment Not on file documented as of this encounter Visit Diagnoses Not on filedocumented in this encounter Care Teams Farmer And Grazier Relationship Specialty Start Date End Date Saima Dorman, INSPECTOR AUTOMATIC TYPEWRITER [address] [address] PCP - General Nurse Practitioner 12/26/21 documented as of this encounter
--- OUTSIDE RECORDS SUMMARY | 2024-09-19 15:40 | XMS_ITS | Encounter Summary ---
Author Organization [employer] ([place], [place], [place], [place]) Address [address] [place] [address] Care Team Providers Care Assistant Center Director Name Role Phone Siama Dorman APRN Primary Care Provider Encounter Details Date Type Department Care Team (Late st Contact Info) Description 05/12/2021 Transcribed Document [facility] [place] [address] [place] [address] ProviderKarena MD [address] [place] [address] Social History Tobacco Use Types [...] Date Juventino rded Speak language other than Panamanian at home Not on file 03/18/2023 Want [...] Conversion Note - Historical ProviderMD - 05/12/2021 12:23 PM CDT Nutrition Assessment Entered On: 05/15/2021 8:42 EDT Performed On: 05/15/2021 8:42 EDT by Marissa Tan Diet Technician Nutrition Assessment Nutrition Assessment Reason : Automatic referral Marissa Tan Diet Technician - 05/15/2021 8:42 EDT Nutrition Recommendations Dietitian Recommendations : 05/15: Automatic consult - BMI >40. 56yo F admitted for back pain w/BLE radiculopathy s/p L4-5 TLIF. PMHx of arthritis, asthma, chronic CHF, chronic constipation, fatty liver, fibromyalgia, GERD, HTN, HLP, pancreatitis. Pt on regular diet, 50-100% x3 meals documented. No UWL or skin breakdown reported. Sx incisions closed/dry w/no signs of infection. Written general, healthful diet education provided to pt via electronic upload to d/c forms. No nutrition dx at this time. device repair technician to rescreen in 7-10 days. Marissa Tan Diet Technician - 05/15/2021 11:38 EDT Electronically signed by Katie [facility] Conversion Handle Assembler Cerner at 06/16/2022 11:11 AM CDT documented in this encounter Plan of Treatment Not on file documented as of this encounter Visit Diagnoses Not on filedocumented in this encounter Care Teams Assistant Center Director Relationship Specialty Start Date End Date Saima Dorman, TOPPER PACKER [address] [address] PCP - General Nurse Practitioner 12/26/21 documented as of this encounter
--- OUTSIDE RECORDS SUMMARY | 2024-09-19 15:40 | XMS_ITS | Encounter Summary ---
Author Organization [employer] ([place], [place], [place], [place]) Address [address] [place] [address] Care Team Providers Care Clinical Documentation Nurse Name Role Phone Saima Dorman APRN Primary Care Provider Encounter Details Date Type Department Care Team (Late st Contact Info) Description 05/14/2021 Transcribed Document [facility] [place] Family Medicine [address] [place] [address] ProviderKarena MD [address] [place] [address] Social History Tobacco Use Types [...] Note - Historical Provider, - 05/14/2021 6:00 PM CDT Pain Assessment Entered On: 05/14/2021 22:31 EDT Performed On: 05/14/2021 20:08 EDT by MARIA FERNANDA SHETTY RN-PATIENT CARE BEDSIDE NON-EXEMPT Intervention Information: acetaminophen Performed by Sherly Velazquez LPN-LVN-PATIENT CARE BEDSIDE on 05/14/2021 19:08:00 EDT acetaminophen,650mg Oral Pain Assessment Pain Assessment : Follow-up assessment Pain Scale Goal : 4 Pain Scale Used : 0-10 Scale MARIA FERNANDA SHETTY RN-PATIENT CARE BEDSIDE NON-EXEMPT - 05/14/2021 22:31 EDT Pain Scale Intensity : 3 MARIA FERNANDA SHETTY RN-PATIENT CARE BEDSIDE NON-EXEMPT - 05/14/2021 22:31 EDT Image 4 - Images currently included in the form version of this document have not been included in the text rendition version of the form. documented in this encounter Plan of Treatment Not on file documented as of this encounter Visit Diagnoses Not on filedocumented in this encounter Care Teams Clinical Documentation Nurse Relationship Specialty Start Date End Date Saima Dorman, CHRISTI [address] [phone] PCP - General Nurse Practitioner 12/26/21 documented as of this encounter
--- OUTSIDE RECORDS SUMMARY | 2024-09-19 15:40 | XMS_ITS | Referral Summary ---
Author Organization [employer] ([place], [place], [place], [place]) Address [address] [place] [address] Care Team Providers Care Workers Compensation Claims Assistant Name Role Phone Saima Dorman APRN Primary Care Provider [phone] Allergies Active Allergy Reactions Criticality Noted Date Comments Sacubitril-Valsartan Other (See Comments) 10/01 Per pt report very fatigued and weak Penicillin Rash Low 12/25/2021 Medications budesonide-formo teroL (SYMBICORT) 160-4.5 mcg/actuation inhalerIndicatio ns:Asthma, unspecified asthma severity, unspecified whether complicated, unspecified whether persistent 2 Puff, Inhalation, Inh, BID, 0 Refill(s) 2 Active spironolactone (ALDACTONE) 25 MG tabletIndication s:Congestive heart failure, unspecified HF chronicity, unspecified heart failure type (HCC) 25 mg, Oral, Daily, 0 Refill(s) 2 Active MILK THISTLE ORALIndications: Encounter for general adult medical examination without abnormal findings 1 Cap, Oral, Daily, 0 Refill(s) 2 Active dilTIAZem (CARDIZEM CD) 240 MG 24 hr capsuleIndicatio ns:Congestive heart failure, unspecified HF chronicity, unspecified heart failure type (HCC) 240 mg, Oral, Daily, 0 Refill(s) 2 Active pregabalin (LYRICA) 200 MG capsuleIndicatio ns:Fibromyalgia Lyrica 200 mg capsule Take 1 capsule 3 times a day by oral route. Active calcium citrate (CALCITRATE) 200 mg (950 mg) tablet Take 1 tablet (950 mg total) by mouth. Active cyclobenzaprine (FLEXERIL) 10 MG tablet Take 1 tablet (10 mg total) by mouth 3 (three) times daily. 3 Active DULoxetine (CYMBALTA) 60 MG capsule Take 2 capsules (120 mg total) by mouth daily. 3 Active Dupixent Syringe 300 mg/2 mL Syrg Inject subcutaneously. 3 Active HYDROcodone-acet aminophen (NORCO 7.5-325) 7.5-325 mg per tablet Take 1 tablet by mouth 2 (two) times daily as needed. 3 Active hydrocortisone (CORTEF) 10 MG tablet Take 1 tablet (10 mg total) by mouth daily. 2 Active ibandronate (BONIVA) 150 mg tablet Take 1 tablet (150 mg total) by mouth. 3 Active ipratropium-albu teroL (DUO-NEB) 0.5 mg-3 mg(2.5 mg base)/3 mL nebulizer solution SMARTSIG:Via Nebulizer 3 Active Dayvigo 5 mg Tab Take 1 tablet by mouth daily. 3 Active levocetirizine (XYZAL) 5 MG tablet Take 1 tablet (5 mg total) by mouth daily. 3 Active Linzess 72 mcg Cap Take 1 capsule (72 mcg total) by mouth every morning. 2 Active montelukast (SINGULAIR) 10 mg tablet Take 1 tablet (10 mg total) by mouth daily. 3 Active multivitamin capsule Take 1 capsule by mouth. Active Gemtesa 75 mg Tab Take 1 tablet (75 mg total) by mouth daily. 2 Active Spiriva Respimat 2.5 mcg/actuation Mist inhalation 2 puffs daily. 2 Active rosuvastatin (CRESTOR) 5 MG tablet Take 8 tablets (40 mg total) by mouth daily. Active albuterol HFA (VENTOLIN HFA) 90 mcg/actuation inhaler SMARTSIG:Via Inhaler 3 Active azelastine (ASTELIN) 137 mcg (0.1 %) nasal spray 2 sprays 2 (two) times daily as needed. 3 Active QNASL 80 mcg/actuation HFAA SMARTSIG:Both Nares 3 Active losartan (COZAAR) 50 MG tablet Take 1 tablet (50 mg total) by mouth daily. 30 tablet 5 3 Active Additional Information Patient not taking.Reported on 01/07/2023 Entresto 24-26 mg tabletIndication s:Encounter for general adult medical examination without abnormal findings Take 1 tablet by mouth 2 (two) times daily. 3 Active irbesartan (AVAPRO) 75 MG tablet Take 1 tablet (75 mg total) by mouth nightly Half a pill. Active carvediloL (COREG) 3.125 MG tablet Take 1 tablet (3.125 mg total) by mouth 2 (two) times daily with breakfast and dinner. Active prasugreL (EFFIENT) 10 mg Tab tablet Take 1 tablet (10 mg total) by mouth daily. Active ranolazine (RANEXA) 500 MG 12 hr tablet Take 1 tablet (500 mg total) by mouth 2 (two) times daily. Active aspirin 81 MG EC tablet Take 1 tablet (81 mg total) by mouth daily. Active pantoprazole (PROTONIX) 40 MG tabletIndication s:Shortness of breath,Fatigue, unspecified type,Fatty liver,Elevated alkaline phosphatase level,Gastroesop hageal reflux disease without esophagitis Take 1 tablet (40 mg total) by mouth 2 (two) times daily. 60 tablet 6 3 Active Active Problems Problem Noted Date Diagnosed Date Chronic obstructive lung disease 12/21/2022 Depression 04/29/2022 Dyspnea on exertion 04/29/2022 Colon cancer screening 04/10/2022 Asthma 12/25/2021 Chronic back pain 12/25/2021 Fibromyalgia 12/25/2021 Chronic CHF 12/25/2021 Encounter for general adult medical examination without abnormal findings 12/25/2021 Fatty liver 12/25/2021 History of obstructive sleep apnea 12/25/2021 Hyperlipidemia 12/25/2021 Pancreatitis 12/25/2021 Elevated alkaline phosphatase level 02/17/2021 Dyspepsia 02/17/2021 Chronic constipation 02/17/2021 Abnormal computerized axial tomography of abdome n 01/07/2021 Anxiety 01/06/2021 Sleep apnea 01/06/2021 Congestive heart failure 01/06/2021 Gastroesophageal reflux disease 01/06/2021 Hypercholesterolemia 01/06/2021 Hypertension 01/06/2021 Irritable bowel syndrome 01/06/2021 Arthritis 01/06/2021 Chest pain 02/15/2015 Electrocardiogram abnormal 02/15/2015 Hypertensive heart disease 02/15/2015 Social History Tobacco Use Types Packs/Day Years Used Date Smoking Tobacco: Never Passive Smoke Exposure: Never Smokeless Tobacco: Never Tobacco Cessation:Counseling Given: Not Answered Alcohol Use Standard Drinks/Week Comments Not Currently [...] Date Juventino rded Speak language other than Croatian at home Not on file 03/18/2023 Want [...] on file Sexual Orientation Not on file Last Filed Vital Signs Vital Sign Reading Time Taken Comments Blood Pressure 132/82 01/07/2023 1:04 PM EST Pulse 86 01/07/2023 1:04 PM EST Temperature 37.2 C (99 F) 04/29/2022 11:25 AM EST Respiratory Rate 22 04/29/2022 11:5 4 AM EST Oxygen Saturation 91% 01/07/2023 1:04 PM EST Inhaled Oxygen Concentration - - Weight 114.4 kg (252 lb 4.8 oz) 01/07/2023 1:04 PM EST Height 165.1 cm (5' 5 ) 01/07/2023 1:04 PM EST Body Mass Index 41.98 01/07/2023 1:04 PM EST Plan of Treatment Not on file Procedures Procedure Name Priority Date/Time Associated Diagnosis Comments LIPID PANEL Routine 09/22/2022 3:21 PM EDT Congestive heart failure, unspecified HF chronicity, unspecified heart failure type (HCC) Shortness of breath HEPATITIS C VIRUS AB W/RFLX TO HCV NAAT(SENDOUT) Routine 07/03/2022 1:21 PM EDT Fatty liver Elevated LFTs Class 3 severe obesity with body mass index (BMI) of 40.0 to 44.9 in adult, unspecified obesity type, unspecified whether serious comorbidity present (HCC) from Last 3 Months or Most Recently Relevant to Health Maintenance Results * Lipid panel (09/22/2022 3:21 PM EDT) Cholesterol, Total 163 100 - 199 mg/dL [facility] Triglycerides 139 0 - 149 mg/dL [facility] HDL Cholesterol 41 >39 mg/dL [facility] VLDL Cholesterol Tucker 25 5 - 40 mg/dL [facility] LDL Calculated 97 0 - 99 mg/dL [facility] Blood 09/22/2022 3:21 PM EDT 09/22/2022 Narrative [facility] - 09/23/2022 12:13 PM EDT Performed at: - [address] [id number] Maintenance Person: Abner Diaz PhD, Phone: [phone] us Kayley Whitaker MD LAB BLOOD ORDERABLES Final R esult [facility] * Hepatitis C Virus Ab w/Rflx to HCV NAAT(SENDOUT) (07/03/2022 1:21 PM EDT) Hepatitis C Antibody by SENG Interp Negative Negative 07/05/2022 10:57 AM EDT [facility] Comment: Based on the anti-HCV (SENG) screen, the HCV RNA by Quantitative NAAT test is not indicated and therefore not performed. INTERPRETIVE INFORMATION: Hepatitis C Virus Antibody by SENG Index: 0.79 IV or less .................. Negative 0.80 to 0.99 IV .................. Equivocal 1.00 to 10.99 IV ................. Low Positive 11.00 IV or greater .............. High Positive Index Value (IV) = Anti-HCV signal to cutoff (S/C)ratio This assay should not be used for blood donor screening, associated re-entry protocols, or for screening Human Cells, Tissues and Cellular and Tissue-Based Products (HCT/P). Hepatitis C Antibody by SENG Index 0.04 IV 07/05/2022 10:57 AM EDT [facility] Comment: Performed by [facility], [address] [place] [address] [email or web address], Carson Jay MD, PHD, Lab. Director Blood Venipuncture / Unknown 07/03/2022 1:21 PM EDT 07/03/2022 1:28 PM EDT Karolyn Ramos PA-C LAB BLOOD ORDERABLES Final Re sult [facility] [address] [place] [address], [facility] [phone] from Last 3 Months or Most Recently Relevant to Health Maintenance Insurance [employer] CHOICE PPO BLUE CROSS/BLUE SHIELD Advance Directives For more information, please contact: [phone] * Full Code (Latest Code Status on File) Date Activated Date Inactivated Comments 04/29/2022 9:21 AM 04/29/2022 1:52 PM -Attempt Resus citation if person has no pulse and is not breathing. -If no pulse or not breathing attempt CPR/CODE. -Call Rapid Response if patient is in distress. Care Teams Workers Compensation Claims Assistant Relationship Specialty Start Date End Date Saima Dorman APRN [address] [place] [address] PCP - General Nurse Practitioner 12/26/21
--- OUTSIDE RECORDS SUMMARY | 2024-09-19 15:40 | XMS_ITS | Encounter Summary ---
Author Organization [employer] ([place], [place], [place], [place]) Address [address] [place] [address] Care Team Providers Care Php Architect Name Role Phone Saima Dorman APRN Primary Care Provider Encounter Details Date Type Department Care Team (Late st Contact Info) Description 05/14/[address] [facility] [place] Family Medicine [address] [place] [address] ProviderKarena MD [address] [place] [address] Social History Tobacco Use Types [...] Date Juventino rded Speak language other than Luxembourger at home Not on file 03/18/2023 Want [...] Conversion Note - Historical Provider, - 05/14/2021 2:00 PM CDT Pain Assessment Entered On: 05/14/2021 15:45 EDT Performed On: 05/14/2021 14:53 EDT by Sherly Velazquez LPN-LVN-[facility] Intervention Information: acetaminophen Performed by Sherly Velazquez LPN-LVN[facility] on 05/14/2021 13:53:00 EDT acetaminophen,650mg Oral Pain Assessment Pain Assessment : Follow-up assessment Pain Scale Goal : 4 Pain Scale Used : 0-10 Scale Sherly Velazquez LPN-LVN-[facility] - 05/14/2021 15:44 EDT Pain Scale Intensity : 2 Sherly Velazquez LPN-LVN-[facility]IENT [facility] - 05/14/2021 15:44 EDT Image 4 - Images currently included in the form version of this document have not been included in the text rendition version of the form. documented in this encounter Plan of Treatment Not on file documented as of this encounter Visit Diagnoses Not on filedocumented in this encounter Care Teams Php Architect Relationship Specialty Start Date End Date Saima Dorman, CHRISTI [address] [id number] PCP - General Nurse Practitioner 12/26/21 documented as of this encounter
--- OUTSIDE RECORDS SUMMARY | 2024-09-19 15:40 | XMS_ITS | Encounter Summary ---
Author Organization [employer] ([place], [place], [place], [place]) Address [address] [place] [address] Care Team Providers Care Retail Cosmetics Sales Counter Manager Name Role Phone Saima Dorman APRN Primary Care Provider Encounter Details Date Type Department Care Team (Late st Contact Info) Description 05/15/2021 Transcribed Document [facility] Family Medicine [address] [place] [address] ProviderKarena MD [address] [place] [address] Social History Tobacco Use Types [...] Date Juventino rded Speak language other than Kuwaiti at home Not on file 03/18/2023 Want [...] Conversion Note - Historical Provider, - 05/15/2021 1:20 PM CDT Attempt to Treat, PT Entered On: 05/15/2021 15:41 EDT Performed On: 05/15/2021 13:20 EDT by AVA MENA, PT Attempt to Treat Unable to Treat Due To : Other: pt asleep Inability to Treat Comment : per discussion with daughter, pt had meds for nausea and now sleeping, plan to discharge, verbally reviewed with daughter options for ONE small step into pt's home, Notification : RN/PTx AVA MENA, PT - 05/15/2021 15:39 EDT Electronically signed by Katie [facility] Conversion Nuclear Plant Instrument Technician Cerner at 06/16/2022 11:01 AM CDT documented in this encounter Plan of Treatment Not on file documented as of this encounter Visit Diagnoses Not on filedocumented in this encounter Care Teams Retail Cosmetics Sales Counter Manager Relationship Specialty Start Date End Date Saima Dorman, BOILER OPERATOR HELPER [address] [place] [address] PCP - General Nurse Practitioner 12/26/21 documented as of this encounter
--- OUTSIDE RECORDS SUMMARY | 2024-09-19 15:40 | XMS_ITS | Encounter Summary ---
Author Organization [employer] ([place], [place], [place], [place]) Address [address] [place] [address] Care Team Providers Care Nitriles Lab Technician Name Role Phone Saima Dorman APRN Primary Care Provider Encounter Details Date Type Department Care Team (Late st Contact Info) Description 05/15/2021 Transcribed Document [facility] [place] [address] [place] [address] ProviderKarena MD [address] [place] [address] Social History Tobacco Use Types [...] Conversion Note - Historical Provider, - 05/15/2021 2:38 PM CDT Patient Education Materials Follows: Lumbar Spine Discharge Information What to expect [...] have used the medications appropriately as directed. Caregiving Home Oxygen Use, Adult When a medical [...] There are two types of oxygen concentrator machines?stationary and portable. ? A stationary oxygen concentrator [...] care provider or a person from your certified medical coding specialist company will show you how to use [...] ??? Air-dry it. ??? Replace it every 2?4 weeks. ??? If you have an infection, such as a cold or pneumonia, change the cannula when you get better. Mask ??? Replace it every 2?4 weeks. ??? If you have an infection, such as a cold or pneumonia, change the mask when you get better. Humidifier bottle ??? Wash the bottle between each refill: ? Wash it with soap and warm water. ? Rinse it thoroughly. ? Clean it and its top with a disinfectant suction plate carrier cleaner. ? Air-dry it. ? Make sure [...] equipment ??? Change any extra tubing every 1?3 months. ??? Follow instructions from your health [...] aerosol sprays. ? Rubbing alcohol. ? Hand towboat captain. ??? When you go to a restaurant [...] not move around. Follow instructions from your certified medical coding specialist company about how to safely secure your [...] documents from your health care provider and certified medical coding specialist company before you travel. General safety tips [...] tubing. Where to find more information ??? [place] [employer]: www.lung.org/oxygen Contact a health care [...] care provider or a person from your certified medical coding specialist company will show you how to use [...] provider. Document Revised: 04/18/2020 Document Reviewed: 02/13/2020 [employer] Patient Education ? 2020 [employer]. documented in this encounter Plan of Treatment Not on file documented as of this encounter Visit Diagnoses Not on filedocumented in this encounter Care Teams Nitriles Lab Technician Relationship Specialty Start Date End Date Saima Dorman APRN [address] [address] PCP - General Nurse Practitioner 12/26/21 documented as of this encounter
--- OUTSIDE RECORDS SUMMARY | 2024-09-19 15:40 | XMS_ITS | Encounter Summary ---
Author Organization [employer] ([place], [place], [place], [place]) Address [address] [place] [address] Care Team Providers Care Diesel Locomotive Engineer Name Role Phone Saima Dorman APRN Primary Care Provider Encounter Details Date Type Department Care Team (Late st Contact Info) Description 05/13/2021 Transcribed Document [facility] Radiology [address] [place] [address] Chelsey Corea MD [address] [place] [address] Social History Tobacco Use Types Packs/Day [...] Date Juventino rded Speak language other than Montserratian at home Not on file 03/18/2023 Want [...] Conversion Note - Chelsey Corea MD - 05/13/2021 1:32 PM EDT Patient: MORAIMA LOYA Age: 56 years Sex: Female : 1965 Associated Diagnoses: None Author: ANDIE HILL PA-QUINN 05/13/21 CC: postop medical management HPI: 56 YO female presented to [facility] for a L4-[address] Bledsoe. Pt found to have advanced spondylolisthesis and failed conservative outpt interventions. Pt has elected for surgical intervention. We are asked to follow for postop medical management. Initial visit on floor -- pt is very sleepy from surgery and pain meds. Dtr is present and answers questions for pt. Denies prior stroke or seizure. Denies DE or cardiac arrhythmia. Denies DM. Denies COPD. [...] replacement. LAPS W/VAGINAL HYSTERECTOMY > 250 GRAMS (35119). septal plasty. cholecysectomy. bladder sling. cortisone back injections. FHx: Mother - HTN, CAD Father - Siblings - HTN SHx: No alcohol, tob or illicit drug use. Home Medications (19) Active buPROPion 150 mg, Oral, Daily cyclobenzaprine 10 mg, PRN, Oral, TID dilTIAZem 240 mg, Oral, Daily DULoxetine 30 mg, Oral, BID Dupixent 200 mg, SubCutaneous, E4Hevvy Lasix 40 mg, Oral, Daily levocetirizine 5 [...] BID Allergies (1) Active Reaction penicillins Rash ROS: pt is very sleepy PE: Vitals Signs (last 24 hrs) Last Charted Minimum Maximum Temp 97.7 (MAY 13 12:05) 97.7 (MAY 13:) 97.1 (MAY 13 07:00) Mon HR 70 (MAY 13 12:10) 70 (MAY 13 12:10) 82 (MAY 13 11:03) Resp Rate 20 (MAY 13 12:10) 16 (MAY 13 11:03) H 24 (MAY 13:15) SBP 133 (MAY 13 12:10) 109 (MAY 13 11:40) H 148 (MAY 13 07:00) DBP 75 (MAY 13 12:10) 62 (MAY 13 11:03) 75 (MAY 13 12:10) MAP 95 (MAY 13 12:10) 82 (MAY 13 11:50) 95 (MAY 13 12:10) SpO2 95 (MAY 13 12:20) L 89 (MAY 13 11:45) 100 (MAY 13 11:05) GEN: sleepy, NAD HEENT: NCAT, no icterus, no thrush, nares patent, CV: S1S2, no murmur. No LE edema Resp: CTAB, NL; no wheezes or rhonchi Abd: Soft, NT, ND +BS Skin: no rashes on inspection and palpation. Ext: No LE edema. No joint edema, erythema. Neuro: O x 3, CN grossly intact Data: Labs (Last four charted values) WBC H 11.0 (MAY 12) HB 14.3 (MAY 12) HCT 44.9 (MAY 12) Plt H 410 (MAY 12) Na 136 (MAY 12) K 3.9 (MAY 12) Cl 103 (MAY 12) CO2 25 (MAY 12) BUN 20 (MAY 12) Cr H 1.30 (MAY 12) Glu R H 115 (MAY 12) Ca H 10.2 (MAY 12) Preop: EKG Ventricular Rate : 78 BPM Atrial Rate : 78 BPM P-R Interval : 170 ms QRS Duration : 94 ms Q-T Interval : 366 ms QTC Calculation(Bezet) : 417 ms P [place] : 27 degrees R [place] : 24 degrees T [place] : 26 degrees Normal sinus rhythm Poor R wave progression Confirmed by Mona GUTIERREZ, ELEUTERIO ([id number]), editorial project manager Odilia Vines ([id number]) on 05/12/2021 4:41:36 PM Assessment/Plan: Advanced spondylolisthesis -s/p L4-[address] Bledsoe. -bowel regimen -incentive spirometer -PT/OT -Pain management deferred to surgeon -will monitor hb/hct daily for signs of ongoing acute blood loss -will monitor bun/cr daily for signs of dehydration, prerenal azotemia -will monitor for signs/symptoms of post-op wound infection or hospital acquired infectious process HTN -hold ARB and spironolactone and lasix, reassess BP and renal fxn in am -continue diltiazem - Monitor bp; add PRN's ZIGGY -bipap ordered in recovery room HLD -continue statin Chronic constipation -bowel regimen while at hospital. DVT prophylaxis: -SCDs GI prophylaxis: -on PPI Assessment and treatment plan made in conjunction with Tadeo Corea MD documented in this encounter Plan of Treatment Not on file documented as of this encounter Visit Diagnoses Not on filedocumented in this encounter Care Teams Diesel Locomotive Engineer Relationship Specialty Start Date End Date Saima Dorman APRN [address] [place] [address] PCP - General Nurse Practitioner 12/26/21 documented as of this encounter
--- OUTSIDE RECORDS SUMMARY | 2024-09-19 15:40 | XMS_ITS | Encounter Summary ---
Author Organization [employer] ([place], [place], [place], [place]) Address [address] [place] [address] Care Team Providers Care Pipe Maker Name Role Phone Saima Dorman APRN Primary Care Provider Reason for Visit * Reason Onset Date Comments Appointment 08/26/2022 Patient called r equesting an appointment, called back to schedule & no answer & mailbox not set up Encounter Details Date Type Department Care Team (Late st Contact Info) Description 08/26/2022 Telephone [facility] Cardiology - [facility] [address] [place] [address] Kayley Whitaker MD [address] [facility] [address] [place] [address] Appointment (Patient called requesting an appointment, called back to schedule & no answer & mailbox not set up) Social History Tobacco Use Types Packs/Day Years Used Date Smoking Tobacco: Never Smokeless Tobacco: Never Alcohol Use Standard [...] AM EDT documented as of this encounter Plan of Treatment Not on file documented as of this encounter Visit Diagnoses Not on filedocumented in this encounter Care Teams Pipe Maker Relationship Specialty Start Date End Date Saima Dorman APRN [address] [id number] PCP - General Nurse Practitioner 12/26/21 documented as of this encounter
--- OUTSIDE RECORDS SUMMARY | 2024-09-19 15:41 | XMS_ITS | Clinical Summary ---
Author Organization [employer] ([place], [place], [place], [place]) Address [address] [place] [address] Care Team Providers Care Motor Equipment Sergeant Name Role Phone Saima Dorman APRN Primary Care Provider Allergies Active Allergy Reactions Criticality Noted Date [...] Electrocardiogram abnormal 02/15/2015 Hypertensive heart disease 02/15/2015 Family History Medical History Relation Name Comments High blood pressure Mother Relation Name Status Comments Father Mother Alive Social History Tobacco Use Types Packs/Day Years [...] Date Juventino rded Speak language other than Sri Lankan at home Not on file 03/18/2023 Want [...] 01/07/2023 1:04 PM EST Plan of Treatment Health Maintenance Due Date Last Done Comments CT Colonography 1965 FOBT/FIT 1965 Fit-DNA (Cologuard) 1965 Sigmoidoscopy 1965 HIV Screening 1979 DTAP/TDAP/TD VACCINES (1 - Tdap) 1983 Pneumococcal 50+ years (1 of 2 - PCV) 1983 Pap Smear 1985 Breast Cancer Screening 2004 Shingles Vaccine (Zoster) (1 of 2) 2014 COVID-19 VACCINE (3 - season) 10/31/202312/2020, 06/10/2020 Tobacco Cessation Counseling and Screening (12+) 01/08/2024 01/07/2023 Influenza Vaccine (#1) 2024 01/16/2022 Lipid Panel 09/22/2025 09/22/2022, 09/22/2022 Colonoscopy 04/29/2032 04/29/2022 Colorectal Cancer Screening 04/29/2032 Hepatitis C Screening Completed 07/03/2022 Procedures Procedure Name Priority Date/Time Associated Diagnosis [...] - 09/23/2022 12:13 PM EDT Performed at: 01 - [address] [id number] Sheet Metal Duct Installer Helper: bAner Diaz PhD, Phone: [phone] Kayley Whitaker MD LAB BLOOD ORDERABLES Final R esult [facility] * Hepatitis C Virus Ab w/Rflx to HCV NAAT(SENDOUT) (07/03/2022 1:21 PM EDT) Pathologist [facility] Hepatitis C Antibody by SENG Interp Negative Negative 07/05/2022 10:57 AM EDT [facility] Comment: Based on the anti-HCV (SENG) screen, [...] Index 0.04 IV 07/05/2022 10:57 AM EDT [facility] Comment: Performed by [facility], [address] [place] [id number] [email or web address], Carson Jay MD, PHD, Lab. Director Blood Venipuncture / Unknown 07/03/2022 1:21 PM EDT 07/03/2022 1:28 PM EDT Karolyn Ramos PA-C LAB BLOOD ORDERABLES Final [place] [address], [facility] [phone] from Last 3 Months or Most Recently Relevant to Health Maintenance Insurance [employer] CHOICE PPO BLUE CROSS/BLUE SHIELD Advance Directives For more information, please contact: [phone] * Full Code (Latest Code Status on File) Date Activated Date Inactivated Comments 04/29/2022 9:21 AM 04/29/2022 1:52 PM -Attempt Resus citation if person has no pulse and is not breathing. -If no pulse or not breathing attempt CPR/CODE. -Call Rapid Response if patient is in distress. Care Teams Motor Equipment Sergeant Relationship Specialty Start Date End Date Saima Dorman, DIETARY TECH [address] [place] [address] PCP - General Nurse Practitioner 12/26/21
--- OUTSIDE RECORDS SUMMARY | 2024-09-19 15:41 | XMS_ITS | Encounter Summary ---
Author Organization Healthcare Address [address] [place] [address] Care Team Providers Care Apartment Maintenance Technician Name Role Phone Saima Dorman INSTITUTIONAL NUTRITION CONSULTANT Primary Care Provider [phone] Encounter Details Date Type Department Care Team (Late Contact Info) Description 07/19/2024 Results Follow-Up [facility] [address] [place] [address] Quin Levy MD [address] [facility] [address] [place] [address] Social History Tobacco Use Types Packs/Day Years Used Date Smoking Tobacco: Never Passive Smoke Exposure: Never Smokeless Tobacco: Never Alcohol Use Standard Drinks/Week Comments Not Currently 0 (1 standard drink = 0.6 oz pur e alcohol) PHQ-2 Answer Date Recorded Patient Health Questionnaire-2 Score 0 03/17/2024 PHQ-2A Answer Date Recorded Patient Health Questionnaire-2 Score 0 08/06/2022 Comments No Sex and Gender Information Value Date Recorded Sex Assigned at Not on file Legal Sex Female 7:27 PM EDT Gender Identity Not on file Sexual Orientation Not on file documented as of this encounter Plan of Treatment Upcoming Encounters Date Type Department Care Team (Late st Contact Info) Description 10/23/2024 11:20 AM EDT Office Visit [facility] [address] [place] [address] Quin Levy MD [address] [place] [id number] documented as of this encounter Visit Diagnoses Not on filedocumented in this encounter Additional Health Concerns Assessment Noted Time A fall risk assessment has been complete d for the patient 03/17/2024 1:14 PM EST A Body Mass Index follow-up plan has been documented for the patient 03/24/2024 1:05 AM EST documented as of this encounter Care Teams Apartment Maintenance Technician Relationship Specialty Start Date End Date Saima Dorman APRN [address] [place] [address] PCP - General 07/12/20 documented as of this encounter
--- OUTSIDE RECORDS SUMMARY | 2024-09-19 15:41 | XMS_ITS | Clinical Summary ---
Author Organization Healthcare Address [address] [place] [address] Care Team Providers Care Automotive Services Manager Name Role Phone Saima Dorman CHRISTI Primary Care Provider [phone] Allergies Active Allergy Reactions Criticality Noted Date Comments Penicillins Itching,Rash,Unknown - Patient states they do not know rxn details Medium 02/05/2009 Sacubitril-Valsartan Other - please document in the comment field Low 10/01/2022 Per pt report very fatigued and weak Medications Symbicort 160-4.5 MCG/ACT inhaler 12/24/19 Active rosuvastatin (Crestor) 5 MG tablet 12/02/19 Active dilTIAZem CD (Cardizem CD) 240 MG 24 hr capsule 12/25/19 22 Active losartan (Cozaar) 50 MG tablet 12/02/19 22 Active furosemide (Lasix) 40 MG tablet 1 (one) time each day. Active montelukast (Singulair) 10 MG tablet 12/25/19 22 Active pantoprazole (Protonix) 40 MG EC tablet 1 (one) time each day. Active DULoxetine (Cymbalta) [address] capsule 12/25/19 Active levocetirizine (Xyzal) 5 MG tablet 12/25/19 Active Spiriva Respimat 2.5 MCG/ACT inhaler 12/25/19 Active DayVigo 5 MG tablet 12/09/19 Active ibandronate (Boniva) 150 MG tablet Take 1 tablet (150 mg) by mouth every 30 (thirty) days. Take in morning with full glass of water on an empty stomach. No food, drink, meds, or lying down for 60 minutes after. Active calcium citrate (Calcitrate) 950 (200 Ca) MG tablet Take 1 tablet (950 mg) by mouth 1 (one) time each day. Active Dupixent 300 MG/2ML solution prefilled syringe injection 05/31/19 22 Active Multiple Vitamin (multivitamin) capsule Take 1 capsule by mouth 1 (one) time each day. Active milk thistle 175 MG tablet Take 1 tablet (175 mg) by mouth 1 (one) time each day. Active HYDROcodone-aceta minophen (Viola) 7.5-325 MG tablet 01/15/20 22 Active methylPREDNISolon e (Medrol Dospak) 4 MG tablets 01/22/20 22 Active pregabalin (Lyrica) 150 MG capsule 01/10/20 22 Active hydrocortisone (Cortef) 10 MG tabletIndications :Adrenal insufficiency (Steve's disease) (CMS/HCC) Take 1 tablet (10 mg total) by mouth 1 (one) time each day. 90 tablet 3 02/02/20 22 Active cyclobenzaprine (Flexeril) 10 MG tablet Take 1 tablet (10 mg) by mouth 3 (three) times a day if needed for muscle spasms. Active bumetanide (Bumex) 1 MG tablet 09/09/19 23 Active Entresto 24-26 MG tablet 09/09/19 23 Active LORazepam (Ativan) 1 MG tabletIndications :Pruritus Take one tablet 30min before MRI, can repeat another dose if needed 2 tablet 05/03/19 24 Active Additional Information Patient not taking.Reported on 03/17/2024 venlafaxine XR (Effexor-XR) 75 MG 24 hr capsule Take 1 capsule (75 mg) by mouth 1 (one) time each day. 08/28/19 24 Active hydrOXYzine HCl (Atarax) 25 MG tabletIndications :Pruritus TAKE 1 TABLET BY MOUTH EVERY 8 HOURS IF NEEDED FOR ITCHING. 30 tablet 2 12/14/19 24 Active albuterol 108 (90 Base) MCG/ACT inhaler 03/08/19 25 Active aspirin 81 MG EC tablet Take 1 tablet (81 mg) by mouth Daily. Active carvedilol (Coreg) 12.5 MG tablet 1 tablet (12.5 mg). Active EPINEPHrine (Epipen) 0.3 MG/0.3ML injection syringe 03/08/19 Active fluticasone (Flonase) 50 MCG/ACT nasal spray [place] 1 spray every day by intranasal route for 7 days. Active ranolazine (Ranexa) 500 MG 12 hr tablet Take 1 tablet (500 mg) by mouth. Active prasugrel (Effient) 10 MG tablet Take 1 tablet (10 mg) by mouth 1 (one) time each day. Active LORazepam (Ativan) 1 MG tablet Take 1 tablet (1 mg) by mouth 1 (one) time in imaging for 1 dose. 2 tablet 03/17/19 25 Active ursodiol (Actigall) 500 MG tabletIndications :Primary biliary cholangitis (CMS/HCC) Take 1 tablet by mouth 3 times a day. 90 tablet 3 07/12/19 25 025 Active Problems Problem Noted Date Diagnosed Date Prediabetes 09/17/2022 09/17/2022 Hiatal hernia with GERD 09/17/2022 Morbid obesity with BMI of 40.0-44.9, adult 08/30 Adrenal insufficiency 09/17/2022 Mixed hyperlipidemia 12/25/2021 09/17/2022 Fatty liver 12/25/2021 09/17/2022 Chronic systolic congestive heart failure 202109/17/2022 Fibromyalgia 12/25/2021 09/17/2022 Anxiety and depression 01/06/2021 Severe persistent asthma without complication 09/17/2022 Bronchiectasis 10/16/2015 09/17/2022 Primary hypertension 01/17/2015 09/17/2022 Irritable bowel syndrome with constipation 01/1709/17/2022 ZIGGY (obstructive sleep apnea) 01/17/2015 Chronic allergic rhinitis 01/17/20152022 Resolved Problems Problem Noted Date Diagnosed Date Resolved Date Acquired pes planus 08/06/2022 09/18/19 23 Posterior tibial tendinitis of right leg 08/06/2022 09/17/2022 Posterior tibial tendinitis of left leg 08/06/2022 09/17/2022 Acquired hallux valgus 08/06/202209/17 Hammer toe, acquired 08/06/2022 023 Encounters Date Type Department Care Team Description 07/19/2024 Results Follow-Up [facility] [address] [place] [address] Quin Levy MD 07/18/2024 10:03 AM EDT - 07/18/2024 11:59 PM EDT Hospital Encounter [facility] [address] [place] [address] Primary biliary cholangitis (CMS/HCC); Metabolic dysfunction-associa nza steatotic liver disease (MASLD); IPMN (intraductal papillary mucinous neoplasm) Discharge Disposition: Home or Self Care 07/18/2024 Travel 07/17/2024 Travel 07/11/2024 Orders Only [facility] [address] [place] [address] Quin Levy MD Primary biliary cholangitis (CMS/HCC) (Primary Dx) from Last 3 Months Immunizations Immunization Administration Dates Next Due Hep A, Adult 09/13/2023 HepB-CpG 09/13/2023 Influenza, Unspecified 01/27/2017,01/26/2017 Influenza, injectable, quadr ivalent, preservative free 01/16/2022,12/27/2019,04/15/2016 Influenza, seasonal, injectable 03/01/2014 Influenza, seasonal, injecta ble, preservative free 03/01/2014 Moderna COVID-19 Vaccine (Re d Cap) 12+ years 07/09/2020,06/10/2020 Family History Medical History Relation Name Comments Cirrhosis Father Asthma Mother Cirrhosis Mother Relation Name Status Comments Father Mother Social History Tobacco Use Types Packs/Day Years [...] Sign Reading Time Taken Comments Blood Pressure 116/69 03/17/2024 12:58 PM EST Pulse 67 03/17/2024 12:58 PM EST Temperature 36.3 C (97.4 F) 03/17/2024 12:58 PM EST Respiratory Rate 16 11/15/2018 1:59 PM EDT Oxygen Saturation 92% 03/17/2024 12:58 PM EST Inhaled Oxygen Concentration - - Weight 112 kg (246 lb 11.1 oz) 07/18/2024 10:18 AM EDT Height 162.6 cm (5' 4 ) 03/17/2024 12:58 PM EST Body Mass Index 42.35 03/17/2024 12:58 PM EST Plan of Treatment Upcoming Encounters Date Type Department Care Team (Late st Contact Info) Description 10/23/2024 11:20 AM EDT Office Visit [facility] [address] [place] [address] Quin Levy MD [address] [place] [address] Health Maintenance Due Date Last Done Comments [facility]-Bone Density Scan 1964 [facility]-HIV Screening 1964 [facility]-Hepatitis C Screening 1964 [facility]-/Child/Adol SDOH Screenings 1964 [facility]- SDOH Screenings 1982 [facility]-Adult SDOH Screenings 1982 [facility]-Pneumococcal Vaccine: 50+ Years (1 of 2 - PCV) 1983 CT Colonography 2009 FIT-DNA 2009 FIT 2009 FOBT 2009 Sigmoidoscopy 2009 [facility]-Breast Cancer Screening 2014 [facility]-Zoster Vaccines (1 of 2) 2014 [id number] Vaccine (3 - Moderna risk series) 08/06/2020 07/09/2020, 06/10/2020 [facility]-Diabetes: Hemoglobin A1C 09/23/2023 09/22/2022, 01/21/2022 [facility]-Hepatitis A Vaccines (2 of 2 - Risk 2-dose series) 03/15/2024 09/13/2023 [facility]-RSV Vaccine: 60+ Years or (1 - Risk 60-74 years 1-dose series) 2024 [facility]-Influenza Vaccine (#1) 10/30/202403/03, 01/16/2022, 12/27/2019, Additional history exists [facility]-Depression Screening 03/17/2025 03/17/2024 Colonoscopy 04/29/2032 04/29/2022 [facility]-Colorectal Cancer Screening 04/29/2032 [facility]-DTaP,Tdap,and Td Vaccines (2 - Td or Tdap) 05/29/2034 05/29/2024 [facility]-Obesity Intervention Completed 025, 03/17/2024, 10/05/2023, Additional history exists HPV Vaccines Aged Out No longer eligi ble based on patient's age to complete this topic [facility]-HIB Vaccines Aged Out No longer e ligible based on patient's age to complete this topic [facility]-IPV Vaccines Aged Out No longer e ligible based on patient's age to complete this topic [facility]-Rotavirus Vaccines Aged Out No lo nger eligible based on patient's age to complete this topic Medical Devices Implanted Type Area Drilling Assistant Device Identifier Shelf Expiration Date Model / Serial / Lot Medtronic Spinal Cord Stimulator-10/31 Implanted:10/31 (Quantity not on file) Spinal Cord Stimulator Back Medtronic [id number] / / Description:MEDTR[employer]IC SCS LE AD MODEL: [id number], implant date 11/19/2023 Procedures Procedure Name Priority Date/Time Associated Diagnosis Comments MRCP W AND WO IV CONTRAST Routine 07/18/2024 11:50 AM EDT IPMN (intraductal papillary mucinous neoplasm) MR ELASTOGRAPHY Routine 07/18/2024 11:50 AM EDT Primary biliary cholangitis (CMS/HCC) Metabolic dysfunction-associate d steatotic liver disease (MASLD) HEMOGLOBIN A1C Routine 09/22/2022 11:18 AM EDT Adrenal insufficiency (CMS/HCC) from Last 3 Months or Most Recently Relevant to Health Maintenance Results * MRCP w and wo IV Contrast (07/18/2024 11:50 AM EDT) Anatomical Region Laterality Modality Abdomen Magnetic Resonan ce Impressions 07/18/2024 1:07 PM EDT 1. Morphologic changes underlying parenchymal disease without ursula cirrhosis. No splenomegaly or ascites. No suspicious hepatic focal lesion. 2. No substantial change of the pancreatic cystic lesion. No solid mass lesion or ductal dilation. 3. MR Elastography was performed. Mean liver stiffness value= 3.2 kPa <2.5 = Normal 2.5-2.9 = Normal or inflammation 2.9-3.5 = Stage 1-2 fibrosis 3.5-4.0 = Stage 2-3 fibrosis 4.0-5.0 = Stage 3-4 fibrosis >5 kPa = Stage 4 fibrosis or cirrhosis CRITICAL RESULT: No. COMMUNICATION: Per this written report. Drafted by Gurjit Hwang MD on 07/18/2024 12:51 PM Final report signed by Gurjit Hwang MD on 07/18/2024 1:07 PM Narrative 07/18/2024 1:07 PM EDT CLINICAL INDICATION: ffup pancreatic cyst; TECHNIQUE: MR imaging of the abdomen was performed with and without intravenous contrast material using the following sequences: coronal single shot T2 weighted fast spin echo, axial T2 weighted sequences with and without fat saturation, axial dual phase gradient echo, pre and dynamic postcontrast 3-D T1 weighted gradient echo with fat saturation (axial and coronal), and axial diffusion. Heavily T2-weighted 2D MRCP sequences were acquired. In addition, advanced 3D workstation manipulation and review of the data set was performed by the interpreting physician to further define anatomy and possible pathology. Images of areas of interest were created utilizing various techniques. These images were saved and transferred to PACS if significant. 11.2 mL of Gadavist was administered. MR Elastography was also performed using a 60Hz acoustic cryogenic transport driver. COMPARISON: MRI from 07/08/2023. FINDINGS: Gallbladder: Surgically absent Biliary tree: No stricture, choledocholithiasis, epithelial thickening or abnormal enhancement. Pancreas: Fatty infiltration with normal signal and enhancement. No acute or chronic inflammation. No solid mass. Normal duct. 4 mm cystic lesion in the pancreatic head with possible communication to duct likely side branch IPMN (series 20, image 45). 1 to 2 mm cystic lesion in the pancreatic tail appears more conspicuous to prior study likely another sidebranch IPMN (series 20, image 38). Liver: No hepatic steatosis and iron deposition. Morphologic changes of parenchymal disease. No ursula cirrhosis. No suspicious hepatic focal lesion. Subcentimeter cyst in the periphery of the right hepatic lobe Spleen: Normal size with no focal lesions. Adrenal Glands: Unremarkable Kidneys: No hydronephrosis or suspicious mass lesion. Simple renal cyst in the right side is noted. Fluid Survey: No ascites. Vasculature: Normal caliber aorta and IVC and patent major abdominal vasculature. Lymph Nodes: Prominent upper abdominal lymph nodes (including luis enrique hepatis lymph nodes, similar to prior likely reactive. Largest measures 1.5 cm (series 29, image 55). Subcentimeter retroperitoneal lymph nodes not pathological by size criteria. Musculoskeletal: No acute or aggressive lesions. Procedure Note Gurjit Hwang MD - 07/18/2024 CLINICAL INDICATION: ffup pancreatic cyst; TECHNIQUE: MR imaging of the abdomen was performed with and without intravenouscontrast material using the following sequences: coronal single shot [id number] fast spin echo, axial T2 weighted sequences with and without fatsaturation, axial dual phase gradient echo, pre and dynamic postcontrast3-D T1 weighted gradient echo with fat saturation (axial and coronal), andaxial diffusion. Heavily T2-weighted 2D MRCP sequences were acquired. Inaddition, advanced 3D workstation manipulation and review of the data setwas performed by the interpreting physician to further define anatomy andpossible pathology. Images of areas of interest were created utilizingvarious techniques. These images were saved and transferred to PACS ifsignificant. 11.2 mL of Gadavist was administered. MR Elastography was also performed using a 60Hz acoustic cryogenic transport driver. COMPARISON: MRI from 07/08/2023. FINDINGS: Gallbladder: Surgically absent Biliary tree: No stricture, choledocholithiasis, epithelial thickening orabnormal enhancement. Pancreas: Fatty infiltration with normal signal and enhancement. No acuteor chronic inflammation. No solid mass. Normal duct. 4 mm cystic lesionin the pancreatic head with possible communication to duct likely sidebranch IPMN (series 20, image 45). 1 to 2 mm cystic lesion in thepancreatic tail appears more conspicuous to prior study likely anothersidebranch IPMN (series 20, image 38). Liver: No hepatic steatosis and iron deposition. Morphologic changes ofparenchymal disease. No ursula cirrhosis. No suspicious hepatic focallesion. Subcentimeter cyst in the periphery of the right hepatic lobe Spleen: Normal size with no focal lesions. Adrenal Glands: Unremarkable Kidneys: No hydronephrosis or suspicious mass lesion. Simple renal cyst inthe right side is noted. Fluid Survey: No ascites. Vasculature: Normal caliber aorta and IVC and patent major abdominalvasculature. Lymph Nodes: Prominent upper abdominal lymph nodes (including portahepatis lymph nodes, similar to prior likely reactive. Largest measures1.5 cm (series 29, image 55). Subcentimeter retroperitoneal lymph nodesnot pathological by size criteria. Musculoskeletal: No acute or aggressive lesions. IMPRESSION: 1.Morphologic changes underlying parenchymal disease without frankcirrhosis. No splenomegaly or ascites. No suspicious hepatic focal lesion. 2.No substantial change of the pancreatic cystic lesion. No solid masslesion or ductal dilation. 3.MR Elastography was performed. Mean liver stiffness value= 3.2 kPa <2.5 = Normal 2.5-2.9 = Normal or inflammation 2.9-3.5 = Stage 1-2 fibrosis 3.5-4.0 = Stage 2-3 fibrosis 4.0-5.0 = Stage 3-4 fibrosis >5 kPa = Stage 4 fibrosis or cirrhosis CRITICAL RESULT: No. COMMUNICATION: Per this written report. Drafted by Gurjit Hwang MD on 07/18/2024 12:51 PM Final report signed by Gurjit Hwang MD on 07/18/2024 1:07 PM us Quin Levy MD IMG MRI PROCEDURES Final R esult * MR Elastography (07/18/2024 11:50 AM EDT) Anatomical Region Laterality Modality Magnetic Resonan ce Impressions 07/18/2024 1:07 PM EDT 1. Morphologic changes underlying parenchymal disease without ursula cirrhosis. No splenomegaly or ascites. No suspicious hepatic focal lesion. 2. No substantial change of the pancreatic cystic lesion. No solid mass lesion or ductal dilation. 3. MR Elastography was performed. Mean liver stiffness value= 3.2 kPa <2.5 = Normal 2.5-2.9 = Normal or inflammation 2.9-3.5 = Stage 1-2 fibrosis 3.5-4.0 = Stage 2-3 fibrosis 4.0-5.0 = Stage 3-4 fibrosis >5 kPa = Stage 4 fibrosis or cirrhosis CRITICAL RESULT: No. COMMUNICATION: Per this written report. Drafted by Gurjit Hwang MD on 07/18/2024 12:51 PM Final report signed by Gurjit Hwang MD on 07/18/2024 1:07 PM Narrative 07/18/2024 1:07 PM EDT CLINICAL INDICATION: ffup pancreatic cyst; TECHNIQUE: MR imaging of the abdomen was performed with and without intravenous contrast material using the following sequences: coronal single shot T2 weighted fast spin echo, axial T2 weighted sequences with and without fat saturation, axial dual phase gradient echo, pre and dynamic postcontrast 3-D T1 weighted gradient echo with fat saturation (axial and coronal), and axial diffusion. Heavily T2-weighted 2D MRCP sequences were acquired. In addition, advanced 3D workstation manipulation and review of the data set was performed by the interpreting physician to further define anatomy and possible pathology. Images of areas of interest were created utilizing various techniques. These images were saved and transferred to PACS if significant. 11.2 mL of Gadavist was administered. MR Elastography was also performed using a 60Hz acoustic cryogenic transport driver. COMPARISON: MRI from 07/08/2023. FINDINGS: Gallbladder: Surgically absent Biliary tree: No stricture, choledocholithiasis, epithelial thickening or abnormal enhancement. Pancreas: Fatty infiltration with normal signal and enhancement. No acute or chronic inflammation. No solid mass. Normal duct. 4 mm cystic lesion in the pancreatic head with possible communication to duct likely side branch IPMN (series 20, image 45). 1 to 2 mm cystic lesion in the pancreatic tail appears more conspicuous to prior study likely another sidebranch IPMN (series 20, image 38). Liver: No hepatic steatosis and iron deposition. Morphologic changes of parenchymal disease. No ursula cirrhosis. No suspicious hepatic focal lesion. Subcentimeter cyst in the periphery of the right hepatic lobe Spleen: Normal size with no focal lesions. Adrenal Glands: Unremarkable Kidneys: No hydronephrosis or suspicious mass lesion. Simple renal cyst in the right side is noted. Fluid Survey: No ascites. Vasculature: Normal caliber aorta and IVC and patent major abdominal vasculature. Lymph Nodes: Prominent upper abdominal lymph nodes (including luis enrique hepatis lymph nodes, similar to prior likely reactive. Largest measures 1.5 cm (series 29, image 55). Subcentimeter retroperitoneal lymph nodes not pathological by size criteria. Musculoskeletal: No acute or aggressive lesions. Procedure Note Gurjit Hwang MD - 07/18/2024 CLINICAL INDICATION: ffup pancreatic cyst; TECHNIQUE: MR imaging of the abdomen was performed with and without intravenouscontrast material using the following sequences: coronal single shot [id number] fast spin echo, axial T2 weighted sequences with and without fatsaturation, axial dual phase gradient echo, pre and dynamic postcontrast3-D T1 weighted gradient echo with fat saturation (axial and coronal), andaxial diffusion. Heavily T2-weighted 2D MRCP sequences were acquired. Inaddition, advanced 3D workstation manipulation and review of the data setwas performed by the interpreting physician to further define anatomy andpossible pathology. Images of areas of interest were created utilizingvarious techniques. These images were saved and transferred to PACS ifsignificant. 11.2 mL of Gadavist was administered. MR Elastography was also performed using a 60Hz acoustic cryogenic transport driver. COMPARISON: MRI from 07/08/2023. FINDINGS: Gallbladder: Surgically absent Biliary tree: No stricture, choledocholithiasis, epithelial thickening orabnormal enhancement. Pancreas: Fatty infiltration with normal signal and enhancement. No acuteor chronic inflammation. No solid mass. Normal duct. 4 mm cystic lesionin the pancreatic head with possible communication to duct likely sidebranch IPMN (series 20, image 45). 1 to 2 mm cystic lesion in thepancreatic tail appears more conspicuous to prior study likely anothersidebranch IPMN (series 20, image 38). Liver: No hepatic steatosis and iron deposition. Morphologic changes ofparenchymal disease. No ursula cirrhosis. No suspicious hepatic focallesion. Subcentimeter cyst in the periphery of the right hepatic lobe Spleen: Normal size with no focal lesions. Adrenal Glands: Unremarkable Kidneys: No hydronephrosis or suspicious mass lesion. Simple renal cyst inthe right side is noted. Fluid Survey: No ascites. Vasculature: Normal caliber aorta and IVC and patent major abdominalvasculature. Lymph Nodes: Prominent upper abdominal lymph nodes (including portahepatis lymph nodes, similar to prior likely reactive. Largest measures1.5 cm (series 29, image 55). Subcentimeter retroperitoneal lymph nodesnot pathological by size criteria. Musculoskeletal: No acute or aggressive lesions. IMPRESSION: 1.Morphologic changes underlying parenchymal disease without frankcirrhosis. No splenomegaly or ascites. No suspicious hepatic focal lesion. 2.No substantial change of the pancreatic cystic lesion. No solid masslesion or ductal dilation. 3.MR Elastography was performed. Mean liver stiffness value= 3.2 kPa <2.5 = Normal 2.5-2.9 = Normal or inflammation 2.9-3.5 = Stage 1-2 fibrosis 3.5-4.0 = Stage 2-3 fibrosis 4.0-5.0 = Stage 3-4 fibrosis >5 kPa = Stage 4 fibrosis or cirrhosis CRITICAL RESULT: No. COMMUNICATION: Per this written report. Drafted by Gurjit Hwang MD on 07/18/2024 12:51 PM Final report signed by Gurjit Hwang MD on 07/18/2024 1:07 PM Quin Levy MD IMG MRI PROCEDURES Final R esult * (ABNORMAL) Hemoglobin A1c (09/22/2022 11:18 AM EDT) Hemoglobin A1c 6.0(H) <5.7 % 09/22/2022 2:29 PM EDT [facility] Blood Venous blood specimen / Unknown Venipuncture / Unknown 09/22/2022 11:18 AM EDT 09/22/2022 11:30 AM EDT Narrative [facility] - 09/22/2022 2:29 PM EDT HA1C Interpretive Data: Diagnosis of Diabetes: Diabetic > or = 6.5% Pre-diabetic 5.7 to 6.4% Non-diabetic < or = 5.6% Glycemic Targets for Type I and Type II Diabetics: Non- Adults <7.0% Adults <6.0% Children and Adolescents <7.5% Source: [place] [employer]. Standards of medical care in diabetes,2017. Diabetes Care.2017:40 (suppl 1):S1-S135. HbA1c assay performed by an ion-exchange chromatography method that is certified traceable to the DCCT. Emanuel Tadeo MD LAB BLOOD ORDERABLES Final Result [facility] [address] [place] [address] from Last 3 Months or Most Recently Relevant to Health [place] [address] [facility] Care Teams Automotive Services Manager Relationship Specialty Start Date End Date Saima Dorman APRN [address] [place] [address] PCP - General 07/12/20
--- OUTSIDE RECORDS SUMMARY | 2024-09-19 15:41 | XMS_ITS | Clinical Summary ---
[facility] Organization [facility] Address [address] [place] [address] Care Team Providers Care Biomedical Repair Technician Name Role Phone Unavailable Primary Care Provider Unavailabl e Social History Tobacco Use Types Packs/Day Years Used Date Smoking Tobacco: Never Assessed Abuse Screen Answer Date Recorded Unsafe at Home or Work/School Not on file Feels Threatened by Someone? Not on file 10/2022 Does Anyone Keep You from Co ntacting Others or Doint Things Outside the Home? Not on file 12/07/2022 Physical Sign of Abuse Present Not on file 1 Housing Stability Answer Date Recorded Current Living Arrangements Not on file 10/2022 Potentially Unsafe Housing Conditions Not on nicolás e 12/07/2022 Family and Community Support Answer Ted e Recorded Help with Day-to-Day Activities Not on file 12/07/2022 Lonely or Isolated Not on file 12/07/2022 Employment Answer Date Recorded Do you want help finding or keeping work or a kaya b? Not on file 12/07/2022 Disabilities Answer Date Recorded Concentrating, Remembering, or Making Decisions Difficulty Not on file 12/07/2022 Doing Errands Independently Difficulty Not on fi le 12/07/2022 Education Answer Date Recorded Help with school or training? Not on file Preferred Language Not on file 12/07/2022 Comments Unknown Sex and Gender Information Value Date Recorded Sex Assigned at Not on file Legal Sex Female 11:03 AM EDT Gender Identity Not on file Sexual Orientation Not on file Plan of Treatment Health Maintenance Due Date Last Done Comments ANNUAL PHYSICAL 1965 Annual Gynecologic Pelvic and Breast Exam 1965 HEPATITIS C SCREENING 1965 TDAP/TD VACCINES (1 - Tdap) 1983 MAMMOGRAM 2004 COLOGUARD 2009 COLON CANCER SCREENING 5 YEAR SIGMOIDOSCOPY 2009 COLONOSCOPY [address] CANCER SCREENING 2009 CT COLONOGRAPHY 2009 FECAL OCCULT BLOOD TEST 2009 FIT Testing (1 year) 2009 Pneumococcal Vaccine 50+ (1 of 1 - PCV) 2014 ZOSTER VACCINE (1 of 2) 2014 COVID-19 Vaccine (1 - 2023- season) 2023 INFLUENZA VACCINE 11/29/2024 Insurance [facility] PPO
--- OUTSIDE RECORDS SUMMARY | 2024-09-19 15:41 | XMS_ITS | Encounter Summary ---
Author Organization [employer] ([place], [place], [place], [place]) Address [address] [place] [address] Care Team Providers Care Buffer Automatic Name Role Phone Saima Dorman APRN Primary Care Provider Encounter Details Date Type Department Care Team (Late st Contact Info) Description 01/22/2019 Transcribed Document [facility] [place] Family Medicine [address] [place] [address] ProviderKarena MD [address] [place], [place] [address] Social History Tobacco Use Types Packs/Day Years Used Date Smoking Tobacco: Never Assessed Comments Unknown Sex and Gender Information Value Date Recorded Sex Assigned at Not on file Legal Sex Female 5:23 PM CDT Gender Identity Not on file Sexual Orientation Not on file documented as of this encounter Miscellaneous Notes * Cerner Conversion Note - Karena Ashby MD - 01/22/2019 9:15 PM STUDENT NURSE Orthopedic Nurse Navigator Entered On: 01/23/2019 14:00 EST Performed On: 01/22/2019 21:15 EST by Vandana Chun Nurse deli worker Nurse Navigator Assessment Attended Joint Academy : Yes Joint AcademyType : Online Joint Academy Date : 01/22/2019 EST Type of Surgery : Total Knee Replacement, Left Joint Navigator Assessment Note : Patient viewed the online version of Joint Academy prior to surgery. Vandana Chun Nurse RN - 01/23/2019 13:59 EST Electronically signed by Jameel Wilson Conversion Director Of Financial Planning Cerner at 06/16/2022 11:04 AM CDT documented in this encounter Plan of Treatment Not on file documented as of this encounter Visit Diagnoses Not on filedocumented in this encounter Care Teams Buffer Automatic Relationship Specialty Start Date End Date Saima Dorman, FINISHED STOCK INSPECTOR [address] [place] [address] PCP - General Nurse Practitioner 12/26/21 documented as of this encounter
[2024-09-19 16:27] LABS: Hematocrit 49.5 % (37.0-47.0); Hemoglobin 15.5 g/dL (12.2-16.2); Immature Granulocytes % 0.8 %; Mean Corpuscular HGB Conc 31.3 g/dL (31.8-35.4); Mean Corpuscular Hemoglobin 27.3 pg (27.0-31.2); Mean Corpuscular Volume 87.1 fl (81-99); Nucleated Red Blood Cells % 0 %; Platelet Count 337 K/mm3 (142-424); Red Blood Count 5.68 M/mm3 (4.20-5.40); Red Cell Distribution Width-SD 45.2 fL; White Blood Count 15.0 K/mm3 (4.8-10.8)
[2024-09-19 16:39] LABS: Albumin Level 4.7 g/dl (3.5-5.0); Chloride 97 mmol/L (98-107); Potassium 4.1 mmoL/L (3.5-5.1); Sodium 136 mmol/L (136-145)
[2024-09-19 16:41] LABS: Blood Urea Nitrogen 25 mg/dl (7-17); Creatinine,Serum 0.80 mg/dl (0.52-1.04); Estimated Glomerular Filt Rate 73 ml/min (>60); GFR (African American) 89 ML/MIN (>60)
[2024-09-19 16:42] LABS: Alanine Aminotransferase 24 U/L (12-78); Alkaline Phosphatase 142 U/L (38-126); Anion Gap 14.1 mEq/L (5-15); Aspartate Amino Transferase 29 U/L (14-36); Bilirubin,Direct 0.6 mg/dl (0.0-0.4); Bilirubin,Indirect 0.0 mg/dL (0.0-0.9); Bilirubin,Total 0.6 mg/dl (0.2-1.3); Bilirubin,Unconjugated 0.0 mg/dL (0.0-1.1); Calcium 9.7 mg/dl (8.4-10.2); Carbon Dioxide 29 mmol/L (22.0-30.0); Cholesterol 123 mg/dl (140-200); Glucose 122 mg/dl (74-100); HDL Cholesterol 45 mg/dl (40-60); Magnesium 2.1 mg/dl (1.6-2.3); Total Protein,Serum 7.7 g/dl (6.3-8.2); Triglycerides 132 mg/dl (30-150)
[2024-09-19 16:59] LABS: Free T4 (Free Thyroxine) 1.34 ng/dl (0.78-2.19)
[2024-09-19 17:13] LABS: Thyroid Stimulating Hormone 0.21 uIU/mL (0.465-4.68)
== END 2024-09-19 23:59 | disposition home or self-care (01) ==
LOC: LAB 15:38
PROVIDERS: PCP Nurse Practitioner Family; Visit Provider Nurse Practitioner
DX: I25.10 Atherosclerotic heart disease of native coronary artery without angina pectoris (principal); I10 Essential (primary) hypertension
CPT/HCPCS: 36415; 80048; 80061; 80076; 83735; 84439; 84443; 85025

== ENCOUNTER 2024-10-17 12:35 | Outpatient (CLI) | payer BC, SELFPAY ==
--- OUTSIDE RECORDS SUMMARY | 2024-10-17 12:38 | XMS_ITS | Encounter Summary ---
Author Organization [employer] ([place], [place], [place], [place]) Address [address] [place] [address] Care Team Providers Care Flour Blender Helper Name Role Phone Saima Dorman APRN Primary Care Provider Encounter Details Date Type Department Care Team (Late st Contact Info) Description 05/15/2021 Transcribed Document [facility] [place] Family Medicine [address] [place] [address] ProviderKarena MD [address] [place] [address] Social History Tobacco Use Types [...] Date Juventino rded Speak language other than Andorran at home Not on file 03/18/2023 Want [...] on filedocumented in this encounter Care Teams Flour Blender Helper Relationship Specialty Start Date End Date Saima Dorman APRN [address] [id number] PCP - General Nurse Practitioner 12/26/21 documented as of this encounter
--- OUTSIDE RECORDS SUMMARY | 2024-10-17 12:38 | XMS_ITS | Encounter Summary ---
Author Organization [employer] ([place], [place], [place], [place]) Address [address] [place] [address] Care Team Providers Care Folder Seamer Automatic Name Role Phone Saima Dorman APRN Primary Care Provider [phone] Encounter Details Date Type Department Care Team (Late st Contact Info) Description 05/14/[address] [facility] [place] [address] [place] [address] ProviderKarena MD [address] [place] [address] Social History Tobacco Use Types [...] 05/14/2021 6:13 EDT Electronically signed by Katie [facility] Conversion Associate Professor Of Media Arts Cerner at 06/16/2022 10:44 AM CDT documented in this encounter Plan of Treatment Not on file documented as of this encounter Visit Diagnoses Not on filedocumented in this encounter Care Teams Folder Seamer Automatic Relationship Specialty Start Date End Date Saima Dorman, BODY SHOP WORKER [address] [place] [address] PCP - General Nurse Practitioner 12/26/21 documented as of this encounter
--- OUTSIDE RECORDS SUMMARY | 2024-10-17 12:38 | XMS_ITS | Encounter Summary ---
Author Organization [employer] ([place], [place], [place], [place]) Address [address] [place] [address] Care Team Providers Care Copy Operator Name Role Phone Saima Dorman APRN Primary Care Provider Encounter Details Date Type Department Care Team (Late st Contact Info) Description 05/15/2021 Transcribed Document [facility] [place] [address] [place] [address] ProviderKarena MD [address] [place] [address] Social History Tobacco Use Types [...] Date Juventino rded Speak language other than [place] Islander at home Not on file 03/18/2023 [...] Insurance 1 Health Plan: [employer] Policy Number: [id number] Authorization Number: [id number] Insurance 2 Health Plan: MEDICARE Policy Number: [id number] Authorization Number: Insurance Primary Name : [employer] [id number] Authorization Status-Primary : Admit approved Authorization Number-Primary : [id number] Number of Days Authorized-Primary : 0 Day(s) Authorized Service Begin Date-Primary : 05/13/2021 EDT Authorized Service End Date-Primary : 05/13/2021 EDT Authorization Comments-Primary : clinicals submitted per [employer] for c/s auth Historical Authorization Comments-Primary : Comment 1: 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
--- OUTSIDE RECORDS SUMMARY | 2024-10-17 12:38 | XMS_ITS | Encounter Summary ---
Author Organization [email or web address] ([place], [place], [place], [place]) Address [address] [place] [address] Care Team Providers Care Cda Teacher Name Role Phone Saima Dorman APRN Primary Care Provider Encounter Details Date Type Department Care Team (Late st Contact Info) Description 05/14/2021 Transcribed Document [facility] [place] Family Medicine [address] [place] [address] ProviderKarena MD [address] [place] [address] Social History Tobacco Use Types [...] the text rendition version of the form. Electronically signed by Jameel Wilson Conversion Printed Circuit Board Panels Developer Teresa at 06/16/2022 11:14 AM CDT documented in this encounter Plan of Treatment Not on file documented as of this encounter Visit Diagnoses Not on filedocumented in this encounter Care Teams Cda Teacher Relationship Specialty Start Date End Date Saima Dorman, CHRISTI [address] [phone] PCP - General Nurse Practitioner 12/26/21 documented as of this encounter
--- OUTSIDE RECORDS SUMMARY | 2024-10-17 12:38 | XMS_ITS | Encounter Summary ---
Author Organization [employer] ([place], [place], [place], [place]) Address [address] [place] [address] Care Team Providers Care Obstetrician/Gynecologist Name Role Phone Saima Dorman APRN Primary Care Provider Encounter Details Date Type Department Care Team (Late st Contact Info) Description 05/15/2021 Transcribed Document [facility] [place] Family Medicine [address] [place] [address] ProviderKarena MD [address] [place] [address] Social History Tobacco Use Types [...] Date Juventino rded Speak language other than Tuvaluan at home Not on file 03/18/2023 Want [...] form. Electronically signed by Jameel Wilson Conversion Senior Network Security Engineer Teresa at 06/16/2022 10:56 AM CDT documented in this encounter Plan of Treatment Not on file documented as of this encounter Visit Diagnoses Not on filedocumented in this encounter Care Teams Obstetrician/Gynecologist Relationship Specialty Start Date End Date Saima Dorman, CHRISTI [address] [phone] PCP - General Nurse Practitioner 12/26/21 documented as of this encounter
--- OUTSIDE RECORDS SUMMARY | 2024-10-17 12:38 | XMS_ITS | Encounter Summary ---
Author Organization [employer] ([place], [place], [place], [place]) Address [address] [place] [address] Care Team Providers Care Synthetic Filament Spinner Name Role Phone Saima Dorman APRN Primary Care Provider [phone] Encounter Details Date Type Department Care Team (Late st Contact Info) Description 05/13/2021 Transcribed Document [facility] [place] Family Medicine [address] [place] [address] ProviderKarena MD [address] [place] [address] Social History Tobacco Use Types [...] Date Juventino rded Speak language other than Swazi at home Not on file 03/18/2023 Want [...] Historical Provider, - 05/13/2021 9:09 AM CDT [facility] Main OR PACU Summary Primary Physician: ROSALEE ZHENG MD-[facility] Finalized Date/Time: 05/13/21 12:28:53 Pt. Name: MORAIMA LOYA /Sex: 1965 Female Med Rec #: [id number] Physician: ROSALEE ZHENG MD-[facility] Financial #: [id number] Pt. Type: I Room/Bed: [facility] Admit/Disch: 05/13/21 06:34:00 - Institution: [facility] Main OR PACU I Case Times Entry 1 In PACU I 05/13/21 11:03:00 Ready for PACU 05/13/21 12:25:00 Discharge Discharge from PACU 05/13/21 12:25:00 I Last Modified By: ANTONINA KUHN RN 05/13/21 12:28:43 [facility] Main OR PACU I Case Times Audit 05/13/21 12:28:43 Aoc Director Combat Operations Officer: TIA Modifier: BRANDEP <+> 1 Ready for PACU Discharge <+> 1 Discharge from PACU I Finalized By: ANTONINA KUHN, RN Document Signatures Signed By: ANTONINA KUHN RN 05/13/21 12:28 Electronically signed by [facility] Conversion Jailkeeper Cerner at 06/16/2022 11:13 AM CDT documented in this encounter Plan of Treatment Not on file documented as of this encounter Visit Diagnoses Not on filedocumented in this encounter Care Teams Synthetic Filament Spinner Relationship Specialty Start Date End Date Saima Dorman, SCALE OPERATOR [address] [address] PCP - General Nurse Practitioner 12/26/21 documented as of this encounter
--- OUTSIDE RECORDS SUMMARY | 2024-10-17 12:38 | XMS_ITS | Encounter Summary ---
Author Organization [facility] Address [address] [place] [address] Care Team Providers Care Stock Selector Name Role Phone DandyAnnieyair Persaud APRN Primary Care Provider [phone] Reason for Referral * Consultation (Routine) - Closed Specialty Diagnoses / Procedures Referred By Jordan watson Referred To Contact Gastroenterology Diagnoses Abnormal CT scan, liver Fatty liver Karolyn Ramos PA [address] [facility] [address] [place] [address] Phone: tel: fax: Referral ID Status Reason Start Date Expiration Date V isits Requested Visits Authorized [id number] Closed Specialty Services Required 01/18/2023 07/19/2024 1 1 Encounter Details Date Type Department Care Team (Late st Contact Info) Description 01/18/2023 Community [facility] [address] [place] [address] Karolyn Ramos PA [address] [place] [address] scan, liver (Primary [...] Description 10/23/2024 11:20 AM EDT [facility] Visit [facility] [address] [place] [address] Quin Levy MD [address] [place] [address] Scheduled Referrals Name Type Priority [...] documented as of this encounter Care Teams Stock Selector Relationship Specialty Start Date End Date Saima Dorman APRN [address] [place] [address] PCP - General 07/12/20 documented as of this encounter
--- OUTSIDE RECORDS SUMMARY | 2024-10-17 12:38 | XMS_ITS | Encounter Summary ---
Author Organization [employer] ([place], [place], [place], [place]) Address [address] [place] [address] Care Team Providers Care Nuisance Wildlife Control Operator Name Role Phone Saima Dorman APRN Primary Care Provider Encounter Details Date Type Department Care Team (Late st Contact Info) Description 05/14/2021 Transcribed Document [facility] [place] [address] [place] [address] ProviderKarena MD [address] [place] [address] Social History Tobacco Use Types [...] Date Juventino rded Speak language other than Grenadian at home Not on file 03/18/2023 Want [...] on filedocumented in this encounter Care Teams Nuisance Wildlife Control Operator Relationship Specialty Start Date End Date Saima Dorman, CHRISTI [address] [phone] PCP - General Nurse Practitioner 12/26/21 documented as of this encounter
--- OUTSIDE RECORDS SUMMARY | 2024-10-17 12:38 | XMS_ITS | Encounter Summary ---
Author Organization [employer] ([place], [place], [place], [place]) Address [address] [place] [address] Care Team Providers Care Material Handling Equipment Stevedore Name Role Phone Saima Dorman APRN Primary Care Provider [phone] Encounter Details Date Type Department Care Team (Late st Contact Info) Description 05/14/2021 Transcribed Document [facility] Radiology [address] [place] [address] Chelsey Corea MD [address] [place] [address] Social History Tobacco Use Types Packs/Day [...] Date Juventino rded Speak language other than Afghan at home Not on file 03/18/2023 Want [...] 1965 Associated Diagnoses: None Author: ANDIE HILL PA-[facility] 05/14/21 CC: postop medical management S: pt is still super sleepy. She was trying to use her CPAP last night. says it kept having seal broken. Pt is doing ok. No f'/c/s. No n/v/d. (+) gas, (-) BM. No CP, SOA, palpitations. No cough or sputum. Urinating well. +post op pain. Using incentive spirometer. HPI: 56 YO female presented to [facility] for a L4-[address] Bledsoe. Pt found to have advanced spondylolisthesis and failed conservative outpt interventions. Pt has elected for surgical intervention. We are asked to follow for postop medical management. Initial visit on floor -- pt is very sleepy from surgery and pain meds. Dtr is present and answers questions for pt. Denies prior stroke or seizure. Denies NC or cardiac arrhythmia. Denies DM. Denies COPD. [...] replacement. LAPS W/VAGINAL HYSTERECTOMY > 250 GRAMS (57460). septal plasty. cholecysectomy. bladder sling. cortisone back injections. FHx: Mother - HTN, CAD Father - Siblings - HTN SHx: No alcohol, tob or illicit drug use. Home Medications (19) Active buPROPion 150 mg, Oral, Daily cyclobenzaprine 10 mg, PRN, Oral, TID dilTIAZem 240 mg, Oral, Daily DULoxetine 30 mg, Oral, BID Dupixent 200 mg, SubCutaneous, T1Unxji Lasix 40 mg, Oral, Daily levocetirizine 5 [...] ms QTC Calculation(Bezet) : 417 ms P Knifley : 27 degrees R Knifley : 24 degrees T Knifley : 26 degrees Normal sinus rhythm Poor R wave progression Confirmed by Mona GUTIERREZ, ELEUTERIO ([id number]), editor at large Odilia Vines ([id number]) on 05/12/2021 4:41:36 PM Assessment/Plan: Advanced spondylolisthesis [...] on filedocumented in this encounter Care Teams Material Handling Equipment Stevedore Relationship Specialty Start Date End Date Saima Dorman, CHRISTI [address] [id number] PCP - General Nurse Practitioner 12/26/21 documented as of this encounter
--- OUTSIDE RECORDS SUMMARY | 2024-10-17 12:38 | XMS_ITS | Encounter Summary ---
Author Organization [employer] ([place], [place], [place], [place]) Address [address] [place] [address] Care Team Providers Care Structural Steel Detailer Name Role Phone Yessica Dorman APRN Primary Care Provider [phone] Encounter Details Date Type Department Care Team (Late st Contact Info) Description 05/14/2021 Transcribed Document [facility] [place] [address] [place] [address] ProvideraKrena MD [address] [place] [address] Social History Tobacco Use Types [...] Date Juventino rded Speak language other than Malaysian at home Not on file 03/18/2023 Want [...] On: 05/14/2021 17:16 EDT by CELSO LEIJA RN-Crane Hoist Or Lift Operator Initial Assessment I Previously Documented Living Environment [...] have PCP Listed? : Yes CELSO LEIJA RN-Crane Hoist Or Lift Operator - 05/14/2021 17:16 EDT Initial Assessment II Sensory and Motor Deficits : Weakness Current Home Treatments and Equipment : Bedside commode, CPAP, Oxygen therapy, Shower chair, Walker Home Equipment Contact Information : Radha Does the Patient have a Floor to SNF Benefit? : No CELSO LEIJA RN-Crane Hoist Or Lift Operator - 05/14/2021 17:16 EDT Discharge Needs I Anticipated Discharge Date : 05/15/2021 EDT Anticipated Discharge To, CM : Home with family care, Home with home health Current Home Treatment/Equipment : Current Home Treatment/Equipment No qualifying data available. Post Acute/Home Treatments : Oxygen/Supplies, Other: wheels for walker Documentation Status Complete : Yes CELSO LEIJA RN-Crane Hoist Or Lift Operator - 05/14/2021 17:16 EDT Discharge Needs II Professional Skilled Services : Professional Skilled Services No qualifying data available. Needs Assistance with Transportation : No Discharge Options Discussed with Patient : DME, Home Health Patient Discharge Goal : Home health care CELSO LEIJA RN-Crane Hoist Or Lift Operator - 05/14/2021 17:16 EDT Narrative Note Narrative [...] tomorrow 05/15. CM will follow. CELSO LEIJA RN-Crane Hoist Or Lift Operator - 05/14/2021 17:16 EDT documented in this encounter Plan of Treatment Not on file documented as of this encounter Visit Diagnoses Not on filedocumented in this encounter Care Teams Structural Steel Detailer Relationship Specialty Start Date End Date Yessica Dorman APRN [address] [address] PCP - General Nurse Practitioner 12/26/21 documented as of this encounter
--- OUTSIDE RECORDS SUMMARY | 2024-10-17 12:38 | XMS_ITS | Encounter Summary ---
Author Organization [employer] ([place], [place], [place], [place]) Address [address] [place] [address] Care Team Providers Care Marketing Systems Analyst Name Role Phone Saima Dorman APRN Primary Care Provider [phone] Encounter Details Date Type Department Care Team (Late st Contact Info) Description 05/15/2021 Transcribed Document [facility] [place] [address] [place] [address] ProviderKarena MD [address] [place] [address] Social History Tobacco Use Types [...] rded Speak language other than Citizen Of [place] at home Not on file 03/18/2023 Want [...] CARE BEDSIDE NON-EXEMPT - 05/15/2021 15:26 EDT Electronically signed by Jameel Wilson Conversion Stock Sheets Cleaner Inspector Cerner at 06/16/2022 10:48 AM CDT documented in this encounter Plan of Treatment Not on file documented as of this encounter Visit Diagnoses Not on filedocumented in this encounter Care Teams Marketing Systems Analyst Relationship Specialty Start Date End Date Saima Dorman, CHRISTI [address] [place] [address] PCP - General Nurse Practitioner 12/26/21 documented as of this encounter
--- OUTSIDE RECORDS SUMMARY | 2024-10-17 12:38 | XMS_ITS | Encounter Summary ---
Author Organization [employer] ([place], [place], [place], [place]) Address [address] [place] [address] Care Team Providers Care Case Resolution Specialist Name Role Phone Saima Dorman APRN Primary Care Provider Reason for Referral * Flouroscopy (Routine) - Closed Specialty Diagnoses / Procedures Referred By Contac t Referred To Contact Diagnoses Chronic respiratory failure with hypoxia (HCC) Procedures FL sniff test Leanne Pearl PA-C [address] [address] Phone: tel: fax: Referral ID Status Reason Start Date Expiration Date Visits Re quested Visits Authorized [id number] Closed 11/11/2023 11/10/2024 1 1 Encounter Details Date Type Department Care Team (Late st Contact Info) Description 11/11/2023 Outside Orders [facility] Central Scheduling [address] [place] [address] Leanne Pearl PA-C [address] [address] Chronic respiratory failure with hypoxia [...] Date Juventino rded Speak language other than Estonian at home Not on file 03/18/2023 Want [...] (HCC) documented in this encounter Care Teams Case Resolution Specialist Relationship Specialty Start Date End Date DormanSaima patelCHRISTI [address] [address] PCP - General Nurse Practitioner 12/26/21 documented as of this encounter
--- OUTSIDE RECORDS SUMMARY | 2024-10-17 12:38 | XMS_ITS | Referral Summary ---
Author Organization [employer] ([place], [place], [place], [place]) Address [address] [place] [address] Care Team Providers Care Steam Shovelman Name Role Phone Saima Dorman APRN Primary [...] on file 03/18 Educational Attainment Answer Date Juvenitno rded Speak language other than Rwandan at home Not on file 03/18/2023 Want [...] 09/23/2022 12:13 PM EDT Performed at: - [address] [id number] Claim Analyst: Abner Diaz PhD, Phone: [phone] us Kayley Whitaker MD LAB BLOOD ORDERABLES Final R esult [facility] * Hepatitis C Virus Ab w/Rflx to HCV NAAT(SENDOUT) (07/03/2022 1:21 PM EDT) Hepatitis C Antibody by SENG Interp Negative Negative 07/05/2022 10:57 AM EDT [facility] Comment: Based on the anti-HCV (SENG) [...] Index 0.04 IV 07/05/2022 10:57 AM EDT [facility] Comment: Performed by [facility], [address] [place] [address] [email or web address], Carson Jay MD, PHD, Lab. Director Blood Venipuncture / Unknown 07/03/2022 1:21 PM EDT 07/03/2022 1:28 PM EDT Karolyn Ramos PA-C LAB BLOOD ORDERABLES Final Re sult [facility] [address] [place] [address], [facility] [phone] from Last 3 Months or Most Recently Relevant to Health Maintenance Insurance [employer] CHOICE PPO BLUE CROSS/BLUE SHIELD Advance Directives For more information, please contact: [phone] * Full Code (Latest Code Status on File) Date Activated Date Inactivated Comments 04/29/2022 9:21 AM 04/29/2022 1:52 PM -Attempt Resus citation if person has no pulse and is not breathing. -If no pulse or not breathing attempt CPR/CODE. -Call Rapid Response if patient is in distress. Care Teams Steam Shovelman Relationship Specialty Start Date End Date Saima Dorman APRN [address] [place] [address] PCP - General Nurse Practitioner 12/26/21
--- OUTSIDE RECORDS SUMMARY | 2024-10-17 12:38 | XMS_ITS | Encounter Summary ---
Author Organization [employer] ([place], [place], [place], [place]) Address [address] [place] [address] Care Team Providers Care Behavioral Consultant Name Role Phone Yessica Dorman APRN Primary Care Provider Encounter Details Date Type Department Care Team (Late st Contact Info) Description 05/15/2021 Transcribed Document [facility] [address] [place] [address] ProviderKarena MD [address] [place] [address] Social History Tobacco Use Types [...] Date Juventino rded Speak language other than Cook Islander at home Not on file 03/18/2023 [...] Ashby MD - 05/15/2021 2:38 PM CDT [facility] [address] [place], [place] [id number] HEYDI LOYAA Yoel :1965 Visit Time:05/13/2021 Your [...] lateral lumbar x-rays 0815 for Xrays at [facility] Where: [address] [place] [address]- Business (1) Follow Up with ROSALEE ZHENG MD-SNU When 05/26/2021 02:00 PM EDT Comments Staple Removal Where: [address] [place] [address]- Medications What How Much When Instructions Next Dose acetaminophen-hydrocodone ([place]ays 7.5 mg-325 mg oral tablet) 1 Tablet(s) Oral Every 4 Hours as needed for as needed for pain Pickup at [facility] [place] 4:16 pm today budesonide-formoterol (Symbicort 160 mcg-4.5 [...] (Spiriva) Inhalation Every Day tomorrow Pharmacy Information [facility] [place]: [address] [address] [place], [place] [id number] [phone] Take your medications faithfully. Do NOT skip [...] provider or a person from your medical asst company will show you how to use [...] it and its top with a disinfectant lint cleaner. ? Air-dry it. ? Make sure [...] aerosol sprays. ? Rubbing alcohol. ? Hand cover mat machine operator. ??? When you go to a restaurant [...] move around. Follow instructions from your medical asst company about how to safely secure your [...] from your health care provider and medical asst company before you travel. General safety tips [...] tubing. Where to find more information ??? [place] [employer] Association: www.lung.org/oxygen Contact a health care [...] provider or a person from your medical asst company will show you how to use [...] provider. Document Revised: 04/18/2020 Document Reviewed: 02/13/2020 Else360Learning Patient Education ?? 2020 SeeMe. Lumbar Spine Discharge Information What to expect [...] and shin droe KOE done) Hycet, Lorcet, Hays, Verdrocet, Vicodin, Xodol, Zamicet What is the [...] may report side effects to FDA at 4-172-HDM-4204. What other drugs will affect acetaminophen and [...] affect acetaminophen and hydrocodone, including prescription and ofld-mmq-bswkncz medicines, vitamins, and herbal products. Not all [...] to ensure that the information provided by [employer] ('[employer]') is accurate, up-to-date, and complete, but no guarantee is made to that effect. Drug information contained herein may be time sensitive. [employer] information has been compiled for use by healthcare practitioners and consumers in the [place] and therefore [employer] does not warrant that uses outside of the [place] are appropriate, unless specifically indicated otherwise. [employer] drug information does not endorse drugs, diagnose patients or recommend therapy. [employer] drug information is an informational resource designed [...] effective or appropriate for any given patient. [employer] does not assume any responsibility for any aspect of healthcare administered with the aid of information [employer] provides. The information contained herein is not intended to cover all possible uses, directions, precautions, warnings, drug interactions, allergic reactions, or adverse effects. If you have questions about the drugs you are taking, check with your doctor, nurse or pharmacist. Copyright 9274-4502 [employer] Version: 16.03. Revision Date: 04/02/2020. Emergency Awareness [...] Assistance with quitting is available by contacting 0-900-QZXONOW. This is a free resource providing counseling, support, and referral. Or you may contact your personal physician. [place] Suicide Prevention Lifeline: The National Suicide Prevention [...] range between ( 0.0 and 7.0 ) [place] #: 0.97 K/uL -- Normal range between ( 0.16 and 1.00 ) [place] #: 0.09 x10(3)/uL -- Normal range between ( 0.00 and 0.80 ) [place] %: 9.0 % -- Normal range between [...] ) Urine Bilirubin Dipstick: Negative Urine Specific [place]: 1.021 -- Normal range between ( 1.005 [...] was given the opportunity to ask questions. Patient/House Carpenter Helper Name: Patient/House Carpenter Helper Signature: Relationship to Patient: Clinician/Hospital House Carpenter Helper Signature: Date: Electronically signed by Luis Angel Wilson Conversion Sheet Metal Layout Mechanic Teresa at 06/16/2022 10:56 AM CDT documented in this encounter Plan of Treatment Not on file documented as of this encounter Visit Diagnoses Not on filedocumented in this encounter Care Teams Behavioral Consultant Relationship Specialty Start Date End Date Yessica Dorman APRN [address] [address] PCP - General Nurse Practitioner 12/26/21 documented as of this encounter
--- OUTSIDE RECORDS SUMMARY | 2024-10-17 12:38 | XMS_ITS | Encounter Summary ---
Author Organization [employer] ([place], [place], [place], [place]) Address [address] [place] [address] Care Team Providers Care Substation Operator Name Role Phone Saima Dorman APRN Primary Care Provider Encounter Details Date Type Department Care Team (Late st Contact Info) Description 05/14/2021 Transcribed Document [facility] [place] [address] [place] [address] ProviderKarena MD [address] [place] [address] Social History Tobacco Use Types [...] Date Juventino rded Speak language other than Lebanese at home Not on file 03/18/2023 Want [...] 05/14/2021 22:25 EDT Electronically signed by Katie [facility] Conversion Log Deck Tender Cerner at 06/16/2022 11:00 AM CDT documented in this encounter Plan of Treatment Not on file documented as of this encounter Visit Diagnoses Not on filedocumented in this encounter Care Teams Substation Operator Relationship Specialty Start Date End Date Saima Dorman, CHRISTI [address] [place] [address] PCP - General Nurse Practitioner 12/26/21 documented as of this encounter
--- OUTSIDE RECORDS SUMMARY | 2024-10-17 12:38 | XMS_ITS | Encounter Summary ---
Author Organization [employer] ([place], [place], [place], [place]) Address [address] [place] [address] Care Team Providers Care Air Conditioner Installer Helper Name Role Phone Saima Dorman APRN Primary Care Provider Encounter Details Date Type Department Care Team (Late st Contact Info) Description 05/13/2021 Transcribed Document [facility] [place] [address] [place] [address] ProviderKarena MD [address] [place] [address] Social History Tobacco Use Types [...] Date Juventino rded Speak language other than Nauruan at home Not on file 03/18/2023 Want [...] Obtained From : Patient Primary Language : Nauruan Communication Barrier : None Set Up Mechanic Coil Winding Machines Needed : No Meme Hairston Rn - [...] Scale Risk Level : 25-45 Medium Risk Taylor Fall Interventions : Adequate lighting, Assistive devices [...] Smokeless Tobacco Status : Never Implant/Device Type, Loan Interviewer and Model : bilateral knees Meme Hairston [...] Source : Chart Height Entry Format : [place] Height, Feet : 5 ft(Converted to: 152 cm, 60 Inch) Height, Inches : 2 Inch(Converted to: 0 ft 2 Inch, 5.08 cm) Clinical Height : 157.48 cm Weight Source : Standing scale Weight Entry Format : [place] Clinical Dosing Weight : 109.55 kg Weight, Pounds : 241 lb Body Surface Area (BSA) : 2.07 m2 Body Mass Index : 44.2 kg/m2 (>HHI) [place] Body Weight : 50 kg Meme Hairston [...] Meme Hairston Rn - 05/13/2021 13:13 EDT [place] Suicide Severity Rating Scale (C-SSRS) CSSRS Past [...] on filedocumented in this encounter Care Teams Air Conditioner Installer Helper Relationship Specialty Start Date End Date Saima Dorman, CHRISTI [address] [phone] PCP - General Nurse Practitioner 12/26/21 documented as of this encounter
--- OUTSIDE RECORDS SUMMARY | 2024-10-17 12:38 | XMS_ITS | Encounter Summary ---
Author Organization [employer] ([place], [place], [place], [place]) Address [address] [place] [address] Care Team Providers Care Video News Editor Name Role Phone Saima Dorman APRN Primary Care Provider [phone] Encounter Details Date Type Department Care Team (Late st Contact Info) Description 05/14/2021 Transcribed Document [facility] Family Medicine [address] [place] [address] ProviderKarena MD [address] [place] [address] Social History Tobacco Use Types [...] Date Juventino rded Speak language other than Ecuadorean at home Not on file 03/18/2023 Want [...] Insurance 1 Health Plan: [employer] Policy Number: [id number] Authorization Number: [id number] Insurance 2 Health Plan: MEDICARE Policy Number: [id number] Authorization Number: Insurance Primary Name : [place] [id number] Authorization Status-Primary : Admit approved Authorization Number-Primary : [id number] Number of Days Authorized-Primary : 0 Day(s) Authorized Service Begin Date-Primary : 05/13/2021 EDT Authorized Service End Date-Primary : 05/13/2021 EDT Historical Authorization Comments-Primary : Comment 1: 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 CT guided on 05-13-21 per [facility] [employer] IP auth# [id number] 1 day approved (JOCELYN ARMSTRONG, Boarder [employer] 05/12/2021 15:44) Robina Ruiz Rn-Utilization Review - 05/14/2021 12:47 EDT Electronically signed by Katie [facility] Conversion Windows Deployment Technician Teresa at 06/16/2022 10:49 AM CDT documented in this encounter Plan of Treatment Not on file documented as of this encounter Visit Diagnoses Not on filedocumented in this encounter Care Teams Video News Editor Relationship Specialty Start Date End Date Saima Dorman, TAPE MAKING MACHINE OPERATOR [address] [place] [address] PCP - General Nurse Practitioner 12/26/21 documented as of this encounter
--- OUTSIDE RECORDS SUMMARY | 2024-10-17 12:38 | XMS_ITS | Encounter Summary ---
Author Organization [employer] ([place], [place], [place], [place]) Address [address] [place] [address] Care Team Providers Care Electric Meter Tester Helper Name Role Phone Saima Dorman APRN Primary Care Provider Encounter Details Date Type Department Care Team (Late st Contact Info) Description 05/14/2021 Transcribed Document [facility] - [address] [facility] 200 [place] [address] Rosalee Zheng MD [facility] 200 [place] [address] Social History Tobacco Use Types Packs/Day Years [...] Date Juventino rded Speak language other than Austrian at home Not on file 03/18/2023 Want [...] # 0.86 x10(3)/uL (Low) 05/14/2021 03:25 EDT [place] % 6.8 % 05/14/2021 03:25 EDT [place] # 0.96 K/uL 05/14/2021 03:25 EDT Eos [...] on filedocumented in this encounter Care Teams Electric Meter Tester Helper Relationship Specialty Start Date End Date Saima Dorman, WIND ENERGY TECHNICIAN [address] [address] PCP - General Nurse Practitioner 12/26/21 documented as of this encounter
--- OUTSIDE RECORDS SUMMARY | 2024-10-17 12:38 | XMS_ITS | Encounter Summary ---
Author Organization [employer] ([place], [place], [place], [place]) Address [address] [place] [address] Care Team Providers Care Furniture Mover Driver Name Role Phone Saima Dorman APRN Primary Care Provider Encounter Details Date Type Department Care Team (Late st Contact Info) Description 05/14/2021 Transcribed Document [facility] Medicine [address] [place] [address] ProviderKarena MD [address] [place] [address] Social History Tobacco Use Types [...] Date Juventino rded Speak language other than Bangladeshi at home Not on file 03/18/2023 Want [...] on filedocumented in this encounter Care Teams Furniture Mover Driver Relationship Specialty Start Date End Date Saima Dorman, CHRISTI [address] [id number] PCP - General Nurse Practitioner 12/26/21 documented as of this encounter
--- OUTSIDE RECORDS SUMMARY | 2024-10-17 12:38 | XMS_ITS | Encounter Summary ---
Author Organization [employer] ([place], [place], [place], [place]) Address [address] [place] [address] Care Team Providers Care Ceramic Chemist Name Role Phone Yessica Dorman APRN Primary Care Provider Encounter Details Date Type Department Care Team (Late st Contact Info) Description 05/14/2021 Transcribed Document [facility] Neurology - [address] [facility] 200 [place] [address] Rosalee Zheng MD [facility] 200 [place] [address] Social History Tobacco Use Types Packs/Day Years [...] Date Juventino rded Speak language other than Canadian at home Not on file 03/18/2023 Want [...] Miscellaneous Notes * Cerner Conversion Note - Rsoalee Zheng MD - 05/14/2021 5:05 PM EDT [...] already change her home pain medication to [place]ona instead of Percocet. on 05/15/21, post op day 2 ,Patient doing much better today. Still on 2 L of oxygen via nasal cannula but is much more alert. We did switch her pain medication around. She is no longer on oxycodone or Dilaudid. We did also give her Verona to go home with instead of Percocet. [...] ROSALEE ZHENG - 09:15 AM ROSALEE ZHENG MD-[facility] - 02:00 PM Discharge Medications (20) Active buPROPion 150 mg, Oral, Daily cyclobenzaprine 10 mg, PRN, Oral, TID dilTIAZem 240 mg, Oral, Daily DULoxetine 30 mg, Oral, BID Dupixent 200 mg, SubCutaneous, K4Sjiyo Lasix 40 mg, Oral, Daily levocetirizine 5 mg, Oral, Daily losartan 50 mg, Oral, Daily Lunesta 2 mg, Oral, At Bedtime Lyrica 200 mg, Oral, BID meloxicam 15 mg, Oral, Daily Milk Thistle oral capsule 1 Cap, Oral, Daily montelukast 10 mg, Oral, Daily [place] 7.5 mg-325 mg oral tablet 1 Tab, [...] on filedocumented in this encounter Care Teams Ceramic Chemist Relationship Specialty Start Date End Date Yessica Dorman, CHRISTI [address] [id number] PCP - General Nurse Practitioner 12/26/21 documented as of this encounter
--- OUTSIDE RECORDS SUMMARY | 2024-10-17 12:38 | XMS_ITS | Encounter Summary ---
Author Organization [employer] ([place], [place], [place], [place]) Address [address] [place] [address] Care Team Providers Care Convention Manager Name Role Phone Saima Dorman APRN Primary Care Provider Encounter Details Date Type Department Care Team (Late st Contact Info) Description 05/13/2021 Transcribed Document [facility] Neurology - [address] [facility] 200 [place] [address] Alejandro Bledsoe MD [facility] 200 [place] [address] Social History Tobacco Use Types Packs/Day Years [...] Date Juventino rded Speak language other than Bhutanese at home Not on file 03/18/2023 Want [...] BID, 0 Refill(s) Dupixent: 200 mg, SubCutaneous, [id number], 0 Refill(s) Lasix: 40 mg, Oral, Daily, [...] mg, Oral, BID Dupixent 200 mg, SubCutaneous, R6Erwsw Lasix 40 mg, Oral, Daily levocetirizine 5 [...] All Problems Fatty liver / SNOMED CT 773103392 / Confirmed Sleep apnea / SNOMED CT 964749372 / Confirmed Pancreatitis / SNOMED CT 561429590 / Confirmed Hyperlipidemia / SNOMED CT 11520045 / Confirmed History of obstructive sleep apnea / IMO 87258419 / Confirmed High blood pressure / SNOMED CT 62032569 / Confirmed GERD - Gastro-esophageal reflux disease / SNOMED CT 3766455961 / Confirmed Fibromyalgia / SNOMED CT 422983324 / Confirmed Chronic constipation / SNOMED CT 921273261 / Confirmed Chronic CHF / SNOMED CT 723948274 / Confirmed Back pain / SNOMED CT 959029664 / Confirmed Asthma / SNOMED CT 575109406 / Confirmed Arthritis / SNOMED CT 4686029 / Confirmed, Active Problems (13) Arthritis Asthma [...] replacement. LAPS W/VAGINAL HYSTERECTOMY > 250 GRAMS (52945). septal plasty. cholecysectomy. bladder sling. cortisone back [...] EDT Height Source Chart Height Entry Format [place] Height/Length, PASHTO (ft) 5 ft Height/Length PASHTO 2 Inch CLINICALHEIGHT 157.48 cm [place] Body Weight 50 kg Weight Source Standing scale Weight Entry Format [place] Weight Bhutanese lb 241 lb CLINICALWEIGHT 109.55 kg Body [...] uses cane occasionally . Integumentary: Warm, Dry, [place]. Neurologic: Alert, Oriented. Psychiatric: Cooperative, Appropriate mood [...] on filedocumented in this encounter Care Teams Convention Manager Relationship Specialty Start Date End Date Saima Dorman, METER READING CLERK [address] [phone] PCP - General Nurse Practitioner 12/26/21 documented as of this encounter
--- OUTSIDE RECORDS SUMMARY | 2024-10-17 12:39 | XMS_ITS | Encounter Summary ---
Author Organization [email or web address] ([place], [place], [place], [place]) Address [address] [place] [address] Care Team Providers Care Rolling Mill Operator Helper Name Role Phone Saima Dorman APRN Primary Care Provider [phone] Encounter Details Date Type Department Care Team (Late st Contact Info) Description 05/13/2021 Transcribed Document [facility] [place] [address] [place] [address] ProviderKarena MD [address] [place] [address] Social History Tobacco Use Types [...] Date Juventino rded Speak language other than Zimbabwean at home Not on file 03/18/2023 Want [...] Comment, PT : 56 female adm to [facility] 05/13 for L4-5 Spondylolisthesis Sx 05/13 for [...] ROM : WFL Right LE Strength : [facility] LLE Active ROM : L Left LE [...] AVA MENA, PT - 05/13/2021 16:40 EDT Dietitian Research Goals Mobility/Bed Mobility LTG PT Grid Goal [...] AVA MENA PT - 05/13/2021 16:40 EDT [place] PT Charges PT Ther Activities Ea 15 Min : 1 PT Eval Low Complexity : 1 AVA MENA PT - 05/13/2021 16:40 EDT documented in this encounter Plan of Treatment Not on file documented as of this encounter Visit Diagnoses Not on filedocumented in this encounter Care Teams Rolling Mill Operator Helper Relationship Specialty Start Date End Date Saima Dorman, INSTRUMENTATION AND CONTROLS DESIGNER [address] [address] PCP - General Nurse Practitioner 12/26/21 documented as of this encounter
--- OUTSIDE RECORDS SUMMARY | 2024-10-17 12:39 | XMS_ITS | Encounter Summary ---
Author Organization [employer] ([place], [place], [place], [place]) Address [address] [place] [address] Care Team Providers Care Molasses And Caramel Operator Name Role Phone Saima Dorman APRN Primary Care Provider [phone] Encounter Details Date Type Department Care Team (Late st Contact Info) Description 05/12/2021 Transcribed Document [facility] [place] Family Medicine [address] [place] [address] ProviderKarena MD [address] [place] [address] Social History Tobacco Use Types [...] Date Juventino rded Speak language other than Tunisian at home Not on file 03/18/2023 Want [...] Source : Chart Height Entry Format : [place] Height, Feet : 5 ft(Converted to: 152 cm, 60 Inch) Height, Inches : 2 Inch(Converted to: 0 ft 2 Inch, 5.08 cm) Clinical Height : 157.48 cm Weight Source : Standing scale Weight Entry Format : [place] Clinical Dosing Weight : 109.55 kg Weight, Pounds : 241 lb Body Surface Area (BSA) : 2.07 m2 Body Mass Index : 44.2 kg/m2 (>HHI) [place] Body Weight : 50 kg ELISA GRAY RN - 05/12/2021 12:14 EDT Health Histories Smoking Status : Never (less than 100 in lifetime; none in last 30 days) Smokeless Tobacco Status : Never Implant/Device Type, Pulp Grinder And Blender and Model : bilateral knees ELISA GRAY [...] ELISA GRAY RN - 05/12/2021 12:14 EDT [place] Suicide Severity Rating Scale (C-SSRS) CSSRS Past [...] Obtained From : Patient Primary Language : Tunisian Communication Barrier : None Web Marketing Intern Needed : No ELISA GRAY RN - [...] 05/12/2021 12:14 EDT Electronically signed by Katie [facility] Conversion Binding Dyer Cerner at 06/16/2022 10:50 AM CDT documented in this encounter Plan of Treatment Not on file documented as of this encounter Visit Diagnoses Not on filedocumented in this encounter Care Teams Molasses And Caramel Operator Relationship Specialty Start Date End Date Saima Dorman APRN [address] [phone] PCP - General Nurse Practitioner 12/26/21 documented as of this encounter
--- OUTSIDE RECORDS SUMMARY | 2024-10-17 12:39 | XMS_ITS | Clinical Summary ---
[facility] Organization [facility] Address [address] [place] [address] Care Team Providers Care Chief Information Security Officer Name Role Phone Unavailable Primary Care Provider [...] 2023- season) 2023 INFLUENZA VACCINE 11/29/2024 Insurance [facility] PPO
--- OUTSIDE RECORDS SUMMARY | 2024-10-17 12:39 | XMS_ITS | Clinical Summary ---
Author Organization [employer] ([place], [place], [place], [place]) Address [address] [place] [address] Care Team Providers Care Rectifier Operator Name Role Phone Saima Dorman APRN [...] Date Juventino rded Speak language other than Sinhala at home Not on file 03/18/2023 Want [...] 12:13 PM EDT Performed at: 01 - [address] [id number] Fish Filleter: Abner Diaz PhD, Phone: [phone] Kayley Whitaker MD LAB BLOOD ORDERABLES Final R esult [facility] * Hepatitis C Virus Ab w/Rflx to HCV NAAT(SENDOUT) (07/03/2022 1:21 PM EDT) Pathologist [facility] Hepatitis C Antibody by SENG Interp Negative Negative 07/05/2022 10:57 AM EDT Networker Comment: Based on the anti-HCV (SENG) screen, [...] Index 0.04 IV 07/05/2022 10:57 AM EDT Networker Comment: Performed by [facility], [address] [place] [id number] [email or web address], Carson Jay MD, PHD, Lab. Director Blood Venipuncture / Unknown 07/03/2022 1:21 PM EDT 07/03/2022 1:28 PM EDT Karolyn Ramos PA-C LAB BLOOD ORDERABLES Final Re [place] [address], [facility] [phone] from Last 3 Months or Most Recently Relevant to Health Maintenance Insurance [employer] CHOICE PPO BLUE CROSS/BLUE SHIELD Advance Directives For more information, please contact: [phone] * Full Code (Latest Code Status on File) Date Activated Date Inactivated Comments 04/29/2022 9:21 AM 04/29/2022 1:52 PM -Attempt Resus citation if person has no pulse and is not breathing. -If no pulse or not breathing attempt CPR/CODE. -Call Rapid Response if patient is in distress. Care Teams Rectifier Operator Relationship Specialty Start Date End Date Saima Dorman, STERILIZER MACHINE OPERATOR [address] [place] [address] PCP - General Nurse Practitioner 12/26/21
--- OUTSIDE RECORDS SUMMARY | 2024-10-17 12:39 | XMS_ITS | Encounter Summary ---
Author Organization [employer] ([place], [place], [place], [place]) Address [address] [place] [address] Care Team Providers Care Quality Controller Name Role Phone Saima Dorman APRN Primary Care Provider Encounter Details Date Type Department Care Team (Late st Contact Info) Description 05/15/2021 Transcribed Document [facility] Family Medicine [address] [place] [address] ProviderKarena MD [address] [place] [address] Social History Tobacco Use Types [...] Date Juventino rded Speak language other than Turkish at home Not on file 03/18/2023 Want [...] Performed On: 05/15/2021 11:17 EDT by Jaqui Flores Pharmacist Meds to Bed Enrollment Patient Enrollment Decision: : Yes/enroll in meds to bed program Meds to Beds Comment : svc line referral Jaqui Flores Pharmacist - 05/15/2021 11:17 EDT documented in this encounter Plan of Treatment Not on file documented as of this encounter Visit Diagnoses Not on filedocumented in this encounter Care Teams Quality Controller Relationship Specialty Start Date End Date Saima Dorman, AIR DEFENSE ARTILLERY SENIOR SERGEANT [address] [phone] PCP - General Nurse Practitioner 12/26/21 documented as of this encounter
--- OUTSIDE RECORDS SUMMARY | 2024-10-17 12:39 | XMS_ITS | Encounter Summary ---
Author Organization [employer] ([place], [place], [place], [place]) Address [address] [place] [address] Care Team Providers Care International Trade Specialist Name Role Phone Saima Dorman APRN Primary Care Provider Encounter Details Date Type Department Care Team (Late st Contact Info) Description 05/15/[address] [facility] [place] Family Medicine [address] [place] [address] ProviderKarena MD [address] [place] [address] Social History Tobacco Use Types [...] Date Juventino rded Speak language other than [place]ican at home Not on file 03/18/2023 Want [...] AVA MENA, PT - 05/15/2021 15:37 EDT Health Advisor Goals Mobility/Bed Mobility LTG PT Grid Goal [...] AVA MENA, PT - 05/15/2021 15:37 EDT Electronically signed by Katie [facility] Conversion Field Crop Ii Farmworker Cerner at 06/16/2022 10:59 AM CDT documented in this encounter Plan of Treatment Not on file documented as of this encounter Visit Diagnoses Not on filedocumented in this encounter Care Teams International Trade Specialist Relationship Specialty Start Date End Date Saima Dorman, EXCEL EXPERT [address] [id number] PCP - General Nurse Practitioner 12/26/21 documented as of this encounter
--- OUTSIDE RECORDS SUMMARY | 2024-10-17 12:39 | XMS_ITS | Encounter Summary ---
Author Organization [employer] ([place], [place], [place], [place]) Address [address] [place] [address] Care Team Providers Care Blow Off Worker Name Role Phone Saima Dorman APRN Primary Care Provider [phone] Encounter Details Date Type Department Care Team (Late st Contact Info) Description 05/15/2021 Transcribed Document [facility] [place] Family Medicine [address] [place] [address] ProviderKarena MD [address] [place] [address] Social History Tobacco Use Types [...] Date Juventino rded Speak language other than Uruguayan at home Not on file 03/18/2023 Want [...] Insurance 1 Health Plan: [employer] Policy Number: [id number] Authorization Number: [id number] Insurance 2 Health Plan: MEDICARE Policy Number: [id number] Authorization Number: Insurance Primary Name : [employer] [id number] Authorization Status-Primary : Admit approved Reference Number-Primary : [id number] Authorization Number-Primary : [id number] Number of Days Authorized-Primary : 2 Day(s) Authorized Service Begin Date-Primary : 05/13/2021 EDT Authorized Service End Date-Primary : 05/15/2021 EDT Historical Authorization Comments-Primary : Comment 1: Ref # per Day Dong, payor has access to EMR, 05/13-05/15, NRD 05/16 (ALE MERAZ RN-UTILIZATION MANAGEMENT REVIEW NON-EXEMPT 05/15/2021 13:11) Comment 2: clinicals submitted per [facility] for c/s auth (ALE MERAZ RN-UTILIZATION MANAGEMENT REVIEW NON-EXEMPT 05/15/2021 08:58) Comment 3: 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 CT guided on 05-13-21 per [employer] [employer] IP auth# [id number] 1 day approved (JOCELYN ARMSTRONG, Alarm Adjuster 05/12/2021 15:44) ALE MERAZ RN-UTILIZATION MANAGEMENT REVIEW NON-EXEMPT - 05/15/2021 13:12 EDT documented in this encounter Plan of Treatment Not on file documented as of this encounter Visit Diagnoses Not on filedocumented in this encounter Care Teams Blow Off Worker Relationship Specialty Start Date End Date Dorman, Saima, OCEAN EXPORT AGENT [address] [phone] PCP - General Nurse Practitioner 12/26/21 documented as of this encounter
--- OUTSIDE RECORDS SUMMARY | 2024-10-17 12:39 | XMS_ITS | Encounter Summary ---
Author Organization [employer] ([place], [place], [place], [place]) Address [address] [place] [address] Care Team Providers Care Leather Sprayer Name Role Phone Saima Dorman APRN Primary Care Provider Encounter Details Date Type Department Care Team (Late st Contact Info) Description 05/15/2021 Transcribed Document [facility] [place] [address] [place] [address] ProviderKarena MD [address] [place] [address] Social History Tobacco Use Types [...] EDT Performed On: 05/15/2021 10:25 EDT by AVA MENA, PT Attempt to Treat Unable to Treat Due To : Patient Refusal Inability to Treat Comment : pt declined and asked can we do it later?? I don't feel well right now pt c/o nausea and RN informed will follow, likely discharge today Notification : RN/P:AVA Mack, PT - 05/15/2021 12:01 EDT Electronically signed by Katie [facility] Conversion Cloth Printer Helper Cerner at 06/16/2022 11:06 AM CDT documented in this encounter Plan of Treatment Not on file documented as of this encounter Visit Diagnoses Not on filedocumented in this encounter Care Teams Leather Sprayer Relationship Specialty Start Date End Date Saima Dorman, PUGGER HELPER [address] [place] [address] PCP - General Nurse Practitioner 12/26/21 documented as of this encounter
--- OUTSIDE RECORDS SUMMARY | 2024-10-17 12:39 | XMS_ITS | Encounter Summary ---
Author Organization [employer] ([place], [place], [place], [place]) Address [address] [place] [address] Care Team Providers Care Field Support Engineer Name Role Phone Saima Dorman APRN Primary Care Provider Encounter Details Date Type Department Care Team (Late st Contact Info) Description 05/13/2021 Transcribed Document [facility] [place] [address] [place] [address] ProviderKarena MD [address] [place] [address] Social History Tobacco Use Types [...] Date Juventino rded Speak language other than Romanian at home Not on file 03/18/2023 Want [...] Marian Erickson RN - 05/14/2021 6:14 EDT Electronically signed by Luis Angel Wilson Conversion Director Of Analytical Development Cerner at 06/16/2022 10:57 AM CDT documented in this encounter Plan of Treatment Not on file documented as of this encounter Visit Diagnoses Not on filedocumented in this encounter Care Teams Field Support Engineer Relationship Specialty Start Date End Date Saima Dorman, CHRISTI [address] [phone] PCP - General Nurse Practitioner 12/26/21 documented as of this encounter
--- OUTSIDE RECORDS SUMMARY | 2024-10-17 12:39 | XMS_ITS | Encounter Summary ---
Author Organization [employer] ([place], [place], [place], [place]) Address [address] [place] [address] Care Team Providers Care Maintenance Helper Name Role Phone Saima Dorman APRN Primary Care Provider Encounter Details Date Type Department Care Team (Late st Contact Info) Description 05/13/2021 Transcribed Document [facility] Neurology - [address] [facility] [address] [place] [address] Alejandro Bledsoe MD [facility] [address] [place] [address] Social History Tobacco Use Types Packs/Day Years [...] Date Juventino rded Speak language other than Uzbek at home Not on file 03/18/2023 Want [...] MD PRIMARY CARE PHYSICIAN: Dr. Jose Luis aBrker. PREOPERATIVE DIAGNOSIS: Unstable L4-5 spondylolisthesis. POSTOPERATIVE DIAGNOSIS: Unstable L4-5 spondylolisthesis. INDICATION FOR PROCEDURE: Mechanical back pain and lumbar radiculopathy, unresponsive to conservative management. PROCEDURES: 1. Minimally invasive L4-5 transforaminal lumbar interbody fusion. 2. Minimally invasive L4-5 decompressive laminectomy. 3. Intraoperative spinal stereotactic navigation. 4. Use of the operating microscope. ADMINISTRATIVE DIETITIAN: Matteo Lee PA-C TYPE OF ANESTHESIA: GEA. [...] was performed and a complete diskectomy performed. Jessica along with melchor lamina and facet was placed down into [...] 3D spin was then performed with a [facility] fluoroscopic unit. Stereotactic navigation was registered [...] LOSS: 100 mL. DRAINS: None. COMPLICATIONS: None. /[id number] MD PEDRO Abreu/AQ / MPT / MODL /[id number] CC: Dr. Jose Luis Barker documented in this encounter Plan of Treatment Not on file documented as of this encounter Visit Diagnoses Not on filedocumented in this encounter Care Teams Maintenance Helper Relationship Specialty Start Date End Date Saima Dorman, ABALONE SHELLER [address] [place] [address] PCP - General Nurse Practitioner 12/26/21 documented as of this encounter
--- OUTSIDE RECORDS SUMMARY | 2024-10-17 12:39 | XMS_ITS | Encounter Summary ---
Author Organization [employer] ([place], [place], [place], [place]) Address [address] [place] [address] Care Team Providers Care Lactation Coordinator Name Role Phone Saima Dorman APRN Primary Care Provider Encounter Details Date Type Department Care Team (Late st Contact Info) Description 05/15/2021 Transcribed Document [facility] [place] [address] [place] [address] ProviderKarena MD [address] [place] [address] Social History Tobacco Use Types [...] Date Juventino rded Speak language other than Mozambican at home Not on file 03/18/2023 Want [...] On: 05/15/2021 16:58 EDT by CELSO LEIJA, RN-Hand Bulldozer Final Discharge Planning Discharge Arrangements : Patient [...] Services (Related/SOC within 3 days)-06 CELSO LEIJA RN-Hand Bulldozer - 05/15/2021 16:58 EDT Final Narrative Note [...] No other CM needs noted. CELSO LEIJA, RN-Hand Bulldozer - 05/15/2021 16:58 EDT Electronically signed by Katie [facility] Conversion Director Energy Cerner at 06/16/2022 11:14 AM CDT documented in this encounter Plan of Treatment Not on file documented as of this encounter Visit Diagnoses Not on filedocumented in this encounter Care Teams Lactation Coordinator Relationship Specialty Start Date End Date Saima Dorman, TYPESETTING MACHINE OPERATOR/TENDER [address] [place] [address] PCP - General Nurse Practitioner 12/26/21 documented as of this encounter
--- OUTSIDE RECORDS SUMMARY | 2024-10-17 12:39 | XMS_ITS | Encounter Summary ---
Author Organization [employer] ([place], [place], [place], [place]) Address [address] [place] [address] Care Team Providers Care Editorial Clerk Name Role Phone Saima Dorman APRN Primary Care Provider Encounter Details Date Type Department Care Team (Late st Contact Info) Description 05/13/2021 Transcribed Document [facility] [place] Medicine [address] [place] [address] ProviderKarena MD [address] [place] [address] Social History Tobacco Use Types [...] EDT Performed On: 05/13/2021 12:18 EDT by Ivan Boyer Director Of Nursing Cert Lead Meds to Bed Enrollment Patient Enrollment Decision: : No/do not enroll in meds to bed program Reason for Declining Meds to Bed Program: : Prefer to use home pharmacy Ivan Boyer Director Of Nursing Cert Lead - 05/14/2021 10:16 EDT Electronically signed by Jameel Wilson Conversion Hot Air Furnace Installer Repairer Cerner at 06/16/2022 11:07 AM CDT documented in this encounter Plan of Treatment Not on file documented as of this encounter Visit Diagnoses Not on filedocumented in this encounter Care Teams Editorial Clerk Relationship Specialty Start Date End Date Saima Dorman, TRUCK DRIVER RUBBISH COLLECTOR [address] [phone] PCP - General Nurse Practitioner 12/26/21 documented as of this encounter
--- OUTSIDE RECORDS SUMMARY | 2024-10-17 12:39 | XMS_ITS | Encounter Summary ---
Author Organization [employer] ([place], [place], [place], [place]) Address [address] [place] [address] Care Team Providers Care Superintendent Automotive Name Role Phone Saima Dorman APRN Primary Care Provider Encounter Details Date Type Department Care Team (Late st Contact Info) Description 05/13/2021 Transcribed Document [facility] Family Medicine [address] [place] [address] ProviderKarena MD [address] [place] [address] Social History Tobacco Use Types [...] Date Juventino rded Speak language other than Azerbaijani at home Not on file 03/18/2023 Want [...] Historical Provider, - 05/13/2021 9:09 AM CDT [facility] Main OR IntraOp Summary Primary Physician: ROSALEE ZHENG MD-SNU Finalized Date/Time: 05/14/21 12:30:38 Pt. Name: MORAIMA LOYA /Sex: 1965 Female Med Rec #: [id number] Physician: ROSALEE ZHENG MD-SNU Financial #: [id number] Pt. Type: I Room/Bed: [facility] Admit/Disch: 05/13/21 06:34:00 - Institution: [facility] IntraOp Case Attendance Entry 1 Entry 2 Entry 3 Case Attendee ROSALEE ZHENG Gordon, Mark, CRNA OTHER, ATTENDEE #1 JEB Role Performed Surgeon/Proceduralist, LINSEED CAKE TRIMMER/Nurse Ocean Lifeguard Specialist Student First Time In 05/13/21 08:24:00 05/13/21 [...] Moore, Kimberly A, Leticia Hinkle MD-ANS Diagnostic Application Manager Role Performed Anesthesiologist of [facility] User Support Analyst Record Time In 05/13/21 08:24:00 05/13/21 08:24:00 [...] LONG, [facility] Role Performed Vendor Physician residential real estate assistant Scrub, First Time In 05/13/21 08:24:00 05/13/21 08:24:00 05/13/21 08:24:00 Time Out 05/13/21 10:59:00 05/13/21 10:59:00 05/13/21 10:59:00 Procedure MIS Posterior Fusion CT MIS Posterior Fusion CT MIS Posterior Fusion CT Guided Guided Guided Other Attendee MIKE RUDD Superficial Wound Closed By: Last Modified By: Chula Chamberlain Rn Moore, Kimberly A, Rn Moore, Kimberly A, Rn 05/13/21 11:00:00 05/13/21 11:00:00 05/13/21 11:00:00 [facility] IntraOp Case Attendance Audit 05/13/21 11:00:00 Reel And Rewinder Operator: [id number] Modifier: [id number] <+> Time Out 1 <*> Procedure [...] MIS Posterior Fusion CT Guided 05/13/21 09:37:28 Reel And Rewinder Operator: [id number] Modifier: [id number] <+> 1 Procedure 2 <*> Procedure MIS [...] MIS Posterior Fusion CT Guided 05/13/21 09:25:08 Reel And Rewinder Operator: [id number] Modifier: [id number] <+> Time In 2 <*> Procedure [...] <+> 9 Role Performed <+> 9 Procedure [facility] IntraOp Case Times Entry 1 Patient In Room Time 05/13/21 08:24:00 Out Room Time 05/13/21 10:59:00 Anesthesia Start Time 05/13/21 08:24:00 Stop Time 05/13/21 10:59:00 Surgery / Procedure Times Start Time 05/13/21 09:09:00 Stop Time 05/13/21 10:44:00 Last Modified By: Chula Chamberlain Rn 05/13/21 10:59:58 [facility] IntraOp Case Times Audit 05/13/21 10:59:58 Reel And Rewinder Operator: [id number] Modifier: [id number] <+> 1 Out Room Time <+> 1 Stop Time 05/13/21 10:44:33 Reel And Rewinder Operator: [id number] Modifier: [id number] <+> 1 Stop Time [facility] IntraOp Cautery Entry 1 Entry 2 ESU Identification Cautery Type Monopolar ESU BiPolar ESU Cautery Type Comments ID Number [id number] ID Type Hospital Number Hospital Number Cautery [...] Kimberly A, Rn 05/13/21 09:24:33 05/13/21 09:32:57 [facility] IntraOp Cautery Audit 05/13/21 09:32:57 Reel And Rewinder Operator: [id number] Modifier: [id number] <+> 2 Cautery Type <+> 2 Coag Setting <+> 2 Cut Setting <+> 2 ID Number <+> 2 ID Type [facility] IntraOp Communication Entry 1 Communication To Family/Significant other Comment START Communication By Chula Chamberlain Rn Date and Time 05/13/21 09:14:00 Last Modified By: Chula Chamberlain Rn 05/13/21 09:24:47 [facility] IntraOp Counts Verification Entry 1 Procedure MIS Posterior Fusion CT Guided Count Info Count Type Sponge, Sharps, Miscellaneous Counts Verification Baseline/pre-procedure Sequence Count Results Not Applicable Counts Performed By Count Performed By DEV ADLER ST (Scrub) Count Performed By Chula Chamberlain Rn (RN) Last Modified By: Chula Chamberlain Rn 05/13/21 09:25:18 [facility] IntraOp Counts Verification Audit 05/13/21 09:25:18 Reel And Rewinder Operator: [id number] Modifier: [id number] <*> Procedure MIS Posterior Fusion CT Guided 1 <+> Count Performed By (Scrub) [facility] IntraOp Counts Final Entry 1 Procedure MIS Posterior Fusion CT Guided Final Count Info Count Type Sponge, Sharps, Miscellaneous Counts Verification Skin Closure/end of Sequence procedure Count Results Correct, surgeon notified Counts Performed By Count Performed By DEV ADLER ST (Scrub) Count Performed By Chula Chamberlain Rn (RN) Last Modified By: Chula Chamberlain Rn 05/13/21 10:44:17 [facility] IntraOp Counts Final Audit 05/13/21 10:44:17 Reel And Rewinder Operator: [id number] Modifier: [id number] <*> Procedure MIS Posterior Fusion CT Guided 1 <+> Count Performed By (Scrub) 1 <+> Count Performed By (RN) [facility] IntraOp Delays Entry 1 Delay Reason Surgeon late - no reason Duration 24 Minute(s) Last Modified By: Chula Chamberlain Rn 05/13/21 09:25:41 [facility] IntraOp Departure from OR Entry [...] Modified By: Chula Chamberlain Rn 05/13/21 09:27:31 [facility] IntraOp Dressing and Packing Entry 1 Type Dressing Location BACK Applied By KARIN OLIVER PA Other Comments COVERDERM, NEOSPORIN Last Modified By: Chula Chamberlain Rn 05/13/21 09:27:52 [facility] IntraOp Fire Risk Assessment Entry [...] Modified By: Chula Chamberlain Rn 05/13/21 09:28:37 [facility] IntraOp General Case Network Field Engineer 1 Case Information OR OR [facility] Case Level 1 Room Verified Yes Wound Class 1 - Clean Specialty Neurosurgery Anesthesia Type General ASA Class 3 Diagnosis Preop Diagnosis LUMBAR SPONDYLOLISTHESIS Postop Same As Preop No Postop Diagnosis SEE MD POST OP NOTES Wound Class Definitions Last Modified By: Chula Chamberlain Rn 05/13/21 09:30:48 [facility] IntraOp Implant Log Entry 1 Entry 2 Entry 3 Type Tissue Implant Tissue Implant Implant (Synthetic) (Biologic) (Biologic) Implant Log Implant Type Hardware Tissue Implant Type Other Other Implant BONE MATRX VIVIGEN BONE VIVIGEN FORMABLE CAGE T/PLIF [id number] Identification [facility]-[id number] -[id number] Description Implant Quantity 1 1 1 Implant Site BACK BACK BACK Implant Identification Model Number Implant Identification Serial Number Implant [id number] Identification Lot Number Implant Lifenet:Lifenet Lifenet:Lifenet J&J:Depuy:Depuy Spine Identification Transplant Srv Transplant Srv Hogshead Cooper Name: Implant [id number] Identification Catalog Number Implant Size Implant Has an Yes Expiration Date Implant Expiration 04/02/22 04/22/22 05/29/25 Date Wasted Radioactive Material Time Implanted Tissue Implant Continue for Tissue Implant Documentation Tissue [id number] Identification Number Graft Prep Per Yes Yes Hogshead Cooper Instructions: Tissue Preparation Thawed Thawed Method: Reconstitution Solution: Reconstitution Solution Lot Number Reconstitution Solution Expiration Date: Thawing Solution SODIUM CHLORIDE 0.9% SODIUM CHLORIDE 0.9% Thawing Solution [id number] Lot Number Thawing Solution 05/31/23 05/31/23 Expiration Date Preparation Materials, Other Preparation Materials, Other Lot Number Preparation Materials, Other Expiration Date Tissue ROSALEE ZHENG, ROSALEE ZHENG, Prepared/Processed -SNU -SNU By Hogshead Cooper Yes Yes Paperwork Completed Implant Type Comment VIVIGEN VIVIGEN Last Modified By: Chula Chamberlain Rn Moore, Kimberly A, Rn Moore, Kimberly A, Rn 05/13/21 10:01:33 05/13/21 10:01:33 05/13/21 10:01:33 Entry 4 Entry 5 Entry 6 Type Implant (Synthetic) Implant (Synthetic) Implant (Synthetic) Implant Log Implant Type Bone Cement Bone Cement Hardware Tissue Implant Type Implant CEMENT SPINAL [id number] (HIGH VELOSITY PRM-SCREW 6X45MM VIPER Identification CONFIDENCE-[id number] SPINAL CEMENT) PRIM POLYAX EXTEND TAB Description FEN BE TI F/5.5MM-[id number] Implant Quantity 1 1 4 Implant Site BACK BACK BACK Implant Identification Model Number Implant Identification Serial Number Implant [id number] Identification Lot Number Implant J&J:Depuy:Depuy Spine DEPUY SPINE Identification Hogshead Cooper Name: Implant [id number] Identification Catalog Number Implant Size Implant Has an Yes Yes No Expiration Date Implant Expiration 12/29/22 03/31/23 Date Wasted Radioactive Material Time Implanted Tissue Implant Continue for Tissue Implant Documentation Tissue Identification Number Graft Prep Per Hogshead Cooper Instructions: Tissue Preparation Method: Reconstitution Solution: Reconstitution Solution Lot Number Reconstitution Solution Expiration Date: Thawing Solution Thawing Solution Lot Number Thawing Solution Expiration Date Preparation Materials, Other Preparation Materials, Other Lot Number Preparation Materials, Other Expiration Date Tissue Prepared/Processed By Hogshead Cooper Paperwork Completed Implant Type Comment Last Modified By: Chula Chamberlain Rn Moore, Kimberly A, Rn Moore, Kimberly A, Rn 05/13/21 10:52:45 05/13/21 10:52:45 05/13/21 10:52:45 Entry 7 Entry 8 Entry 9 Type Implant (Synthetic) Implant (Synthetic) Implant (Synthetic) Implant Log Implant Type Hardware Hardware Hardware Tissue Implant Type Implant MIS CIARRA PLY SCRW SET CIARRA SURG FENESTRATE CHRISTOPHE SPINE VIPER Identification [id number] [id number] Description Implant Quantity 4 1 2 Implant Site BACK BACK BACK Implant Identification Model Number Implant Identification Serial Number Implant Identification Lot Number Implant J&J:Depuy:Depuy Spine J&J:Depuy J&J:Depuy:Depuy Spine Identification Hogshead Cooper Name: Implant [id number] Identification Catalog Number Implant Size Implant Has an No No No Expiration Date Implant Expiration Date Wasted Radioactive Material Time Implanted Tissue Implant Continue for Tissue Implant Documentation Tissue Identification Number Graft Prep Per Hogshead Cooper Instructions: Tissue Preparation Method: Reconstitution Solution: Reconstitution Solution Lot Number Reconstitution Solution Expiration Date: Thawing Solution Thawing Solution Lot Number Thawing Solution Expiration Date Preparation Materials, Other Preparation Materials, Other Lot Number Preparation Materials, Other Expiration Date Tissue Prepared/Processed By Hogshead Cooper Paperwork Completed Implant Type Comment Last Modified By: Chula Chamberlain Rn Moore, Kimberly A, Rn Moore, Kimberly A, Rn 05/13/21 10:52:45 05/13/21 10:52:45 05/13/21 10:52:45 [facility] IntraOp Implant Log Audit 05/13/21 10:52:45 Reel And Rewinder Operator: [id number] Modifier: [id number] <+> 4 Implant Identification Description <+> 4 Implant Identification Lot Number <+> 4 Implant Identification Hogshead Cooper Name: <+> 4 Implant Expiration Date <+> [...] Implant Identification Description <+> 6 Implant Identification Hogshead Cooper Name: <+> 6 Implant Site <+> 6 Implant Quantity <+> 6 Implant Identification Catalog Number <+> 6 Implant Type <+> 6 Implant Has an Expiration Date <+> 6 Type <+> 7 Implant Identification Description <+> 7 Implant Identification Hogshead Cooper Name: <+> 7 Implant Site <+> 7 Implant Quantity <+> 7 Implant Identification Catalog Number <+> 7 Implant Type <+> 7 Implant Has an Expiration Date <+> 7 Type <+> 8 Implant Identification Description <+> 8 Implant Identification Hogshead Cooper Name: <+> 8 Implant Site <+> 8 Implant Quantity <+> 8 Implant Identification Catalog Number <+> 8 Implant Type <+> 8 Implant Has an Expiration Date <+> 8 Type <+> 9 Implant Identification Description <+> 9 Implant Identification Hogshead Cooper Name: <+> 9 Implant Site <+> 9 Implant Quantity <+> 9 Implant Identification Catalog Number <+> 9 Implant Type <+> 9 Implant Has an Expiration Date <+> 9 Type [facility] IntraOp Intraoperative Assessment Entry 1 [...] Modified By: Chula Chamberlain Rn 05/13/21 09:31:10 [facility] IntraOp Intraoperative Equipment Entry 1 Type Equipment Equipment Equipment Forrest Suction System ID Number [id number] Setting ON Intraop Monitoring Antiembolic Devices Antiembolic Devices Sequential compression device, knee high Antiembolic Device Bilateral Location Antiembolic Device [id number] ID Number Antiembolic Device SCDS ON AND WORKING Setting PRIOR TO INDUCTION OF ANESTHESIA Scopes Photo/Video Documentation Last Modified By: Chula Chamberlain Rn 05/13/21 09:32:40 [facility] IntraOp Medication Admin Entry 1 Entry 2 Entry 3 Medication/Irrigant lidocaine 1% w/ Neosporin 15Gm ointment SPNG SURGFOAM epinephrine 1:100,000 - [id number] 30ml vial - [id number] Combo Med List Time Administered Route of [...] DR ZHENG INJECTION FROM topical powder - [id number] PHARMACY [id number] Combo Med List Time Administered Route of TO FIELD TO FIELD TO STERILE FIELD Administration Dose Dose Unit of Measure Volume Administered By ROSALEE ZHENG TUTT, MATTHEW PAIGE, TUTT, MATTHEW PAIGE, MD-SNU MD-SNU MD-SNU Procedure Irrigation Irrigant Volume In Irrigant Volume Out Last Modified By: Chula Chamberlain Rn Moore, Kimberly A, Rn Moore, Kimberly A, Rn 05/13/21 09:33:58 05/13/21 09:33:58 05/13/21 09:33:58 [facility] IntraOp Patient Positioning Entry 1 [...] Positioned By ROSALEE ZHENG MD-SNU, Kenny Murphy, LINSEED CAKE TRIMMER, OTHER, ATTENDEE #1, Chula Chamberlain, Rn, KARIN OLIVER PA Position Verified Positioning Yes Verified by Anesthesia Positioning Yes Verified by Surgeon Last Modified By: Chula Chamberlain Rn 05/13/21 09:35:50 [facility] IntraOp Sign In Entry 1 [...] Modified By: Chula Chamberlain Rn 05/13/21 09:36:21 [facility] IntraOp Sign Out Entry 1 [...] Modified By: Chula Chamberlain Rn 05/13/21 10:44:25 [facility] IntraOp Sign Out Audit 05/13/21 10:44:25 Reel And Rewinder Operator: [id number] Modifier: [id number] <+> 1 RN Sign Out Signature Date/Time [facility] IntraOp Skin Prep Entry 1 [...] Kimberly A, Rn 05/13/21 09:37:17 05/13/21 09:37:17 [facility] IntraOp Surgical Procedures Entry 1 Procedure MIS Posterior Fusion CT Guided Additional MIS L4-5 TLIF WITH ZIEHM Procedure Description Primary Procedure Yes Primary Surgeon ROSALEE ZHENG MD-SNU Start 05/13/21 09:09:00 Stop 05/13/21 10:44:00 Anesthesia Type General Specialty Neurosurgery Wound Class 1 - Clean Last Modified By: Chula Chamberlain Rn 05/13/21 10:44:35 [facility] IntraOp Surgical Procedures Audit 05/13/21 10:44:35 Reel And Rewinder Operator: [id number] Modifier: [id number] <+> 1 Stop [facility] IntraOp Temp Regulation Devices Entry 1 Temp Regulation Temperature THERMOREGULATION Regulation Comment MEASURES MONITIORED AND ADJUSTED BY ANESTHESIA Last Modified By: Chula Chamberlain Rn 05/13/21 09:37:46 [facility] IntraOP Time Out Entry 1 [...] Modified By: Chula Chamberlain Rn 05/13/21 09:38:25 [facility] IntraOp X-Ray and Images Entry 1 X-Ray/Imaging Type Fluoroscopy Fluoroscopy Type C-Arm Site OPERATIVE SITE Shipwright Name Leticia Ramires, Diagnostic Application Manager Protective Devices No Used X-Ray and Imaging ZIEHM Comment Last Modified By: Chula Chamberlain Rn 05/13/21 09:39:05 Case Comments <None> Finalized By: IRINA BERNARD Document Signatures Signed By: Chula Chamberlain Rn 05/13/21 11:00 IRINA BERNARD 05/14/21 12:30 Unfinalized History Date/Time Username Reason for Unfinalizing Freetext Reason for Unfinalizing 05/14/21 12:26 BRANDYN Correct Billing Electronically signed by [facility] Conversion Tax Economist Cerner at 06/16/2022 10:50 AM CDT documented in this encounter Plan of Treatment Not on file documented as of this encounter Visit Diagnoses Not on filedocumented in this encounter Care Teams Superintendent Automotive Relationship Specialty Start Date End Date Saima Dorman, TRACKWALKER [address] [address] PCP - General Nurse Practitioner 12/26/21 documented as of this encounter
--- OUTSIDE RECORDS SUMMARY | 2024-10-17 12:39 | XMS_ITS | Encounter Summary ---
Author Organization [employer] ([place], [place], [place], [place]) Address [address] [place] [address] Care Team Providers Care Electronic Equipment Repairer Name Role Phone Saima Dorman APRN Primary Care Provider Encounter Details Date Type Department Care Team (Late st Contact Info) Description 05/13/2021 Transcribed Document [facility] Family Medicine [address] [place] [address] ProviderKarena MD [address] [place] [address] Social History Tobacco Use Types [...] Date Juventino rded Speak language other than Ukrainian at home Not on file 03/18/2023 Want [...] on filedocumented in this encounter Care Teams Electronic Equipment Repairer Relationship Specialty Start Date End Date Saima Dorman APRN [address] [phone] PCP - General Nurse Practitioner 12/26/21 documented as of this encounter
--- OUTSIDE RECORDS SUMMARY | 2024-10-17 12:39 | XMS_ITS | Encounter Summary ---
Author Organization [employer] ([place], [place], [place], [place]) Address [address] [place] [address] Care Team Providers Care Residential Coordinator Name Role Phone Saima Dorman APRN Primary Care Provider Encounter Details Date Type Department Care Team (Late st Contact Info) Description 05/12/2021 Transcribed Document [facility] Family Medicine [address] [place] [address] ProviderKarena MD [address] [place] [address] Social History Tobacco Use Types [...] Date Juventino rded Speak language other than Puerto Rican at home Not on file 03/18/2023 [...] forms. No nutrition dx at this time. software technician to rescreen in 7-10 days. Marissa Tan Diet Technician - 05/15/2021 11:38 EDT documented in this encounter Plan of Treatment Not on file documented as of this encounter Visit Diagnoses Not on filedocumented in this encounter Care Teams Residential Coordinator Relationship Specialty Start Date End Date Saima Dorman, SMALL PIECE CUTTER [address] [address] PCP - General Nurse Practitioner 12/26/21 documented as of this encounter
--- OUTSIDE RECORDS SUMMARY | 2024-10-17 12:39 | XMS_ITS | Encounter Summary ---
Author Organization [employer] ([place], [place], [place], [place]) Address [address] [place] [address] Care Team Providers Care Research Soil Scientist Name Role Phone Saima Dorman APRN Primary Care Provider Encounter Details Date Type Department Care Team (Late st Contact Info) Description 05/13/2021 Transcribed Document [facility] Radiology [address] [place] [address] Chelsey Corea MD [address] [place] [address] Social History Tobacco Use Types Packs/Day [...] Date Juventino rded Speak language other than Monegasque at home Not on file 03/18/2023 Want [...] management HPI: 56 YO female presented to [facility] for a L4-[address] [...] replacement. LAPS W/VAGINAL HYSTERECTOMY > 250 GRAMS (04842). septal plasty. cholecysectomy. bladder sling. cortisone back injections. FHx: Mother - HTN, CAD Father - Siblings - HTN SHx: No alcohol, tob or illicit drug use. Home Medications (19) Active buPROPion 150 mg, Oral, Daily cyclobenzaprine 10 mg, PRN, Oral, TID dilTIAZem 240 mg, Oral, Daily DULoxetine 30 mg, Oral, BID Dupixent 200 mg, SubCutaneous, O7Ztlai Lasix 40 mg, Oral, Daily levocetirizine 5 [...] ms QTC Calculation(Bezet) : 417 ms P [place] : 27 degrees R [place] : 24 degrees T [place] : 26 degrees Normal sinus rhythm Poor R wave progression Confirmed by Mona GUTIERREZ, ELEUTERIO ([id number]), news video editor Odilia Vines ([id number]) on 05/12/2021 4:41:36 PM Assessment/Plan: Advanced spondylolisthesis [...] and treatment plan made in conjunction with [place] Corea MD documented in this encounter Plan of Treatment Not on file documented as of this encounter Visit Diagnoses Not on filedocumented in this encounter Care Teams Research Soil Scientist Relationship Specialty Start Date End Date Saima Dorman APRN [address] [place] [address] PCP - General Nurse Practitioner 12/26/21 documented as of this encounter
--- OUTSIDE RECORDS SUMMARY | 2024-10-17 12:39 | XMS_ITS | Encounter Summary ---
Author Organization [employer] ([place], [place], [place], [place]) Address [address] [place] [address] Care Team Providers Care Neonatal Intensive Care Unit Nurse Name Role Phone Saima Dorman APRN Primary Care Provider Encounter Details Date Type Department Care Team (Late st Contact Info) Description 05/15/2021 Transcribed Document [facility] Radiology [address] [place] [address] Chelsey Corea MD [address] [place] [address] Social History Tobacco Use Types Packs/Day [...] Date Juventino rded Speak language other than Mosotho at home Not on file 03/18/2023 Want [...] 1965 Associated Diagnoses: None Author: ANDIE HILL PA-[facility] 05/15/21 CC: postop medical management S: Pt is doing ok. No f'/c/s. No n/v/d. (+) gas, (-) BM. No CP, SOA, palpitations. No cough or sputum. Urinating well. +post op pain. Using incentive spirometer. Much more awake today. Still has O2 on at 2L. HPI: 56 YO female presented to [facility] for a L4-[address] Bledsoe. Pt found to have advanced spondylolisthesis and failed conservative outpt interventions. Pt has elected for surgical intervention. We are asked to follow for postop medical management. Initial visit on floor -- pt is very sleepy from surgery and pain meds. Dtr is present and answers questions for pt. Denies prior stroke or seizure. Denies SD or cardiac arrhythmia. Denies DM. Denies COPD. [...] replacement. LAPS W/VAGINAL HYSTERECTOMY > 250 GRAMS (65493). septal plasty. cholecysectomy. bladder sling. cortisone back injections. FHx: Mother - HTN, CAD Father - Siblings - HTN SHx: No alcohol, tob or illicit drug use. Home Medications (20) Active buPROPion 150 mg, Oral, Daily cyclobenzaprine 10 mg, PRN, Oral, TID dilTIAZem 240 mg, Oral, Daily DULoxetine 30 mg, Oral, BID Dupixent 200 mg, SubCutaneous, A0Lkndf Lasix 40 mg, Oral, Daily levocetirizine 5 mg, Oral, Daily losartan 50 mg, Oral, Daily Lunesta 2 mg, Oral, At Bedtime Lyrica 200 mg, Oral, BID meloxicam 15 mg, Oral, Daily Milk Thistle oral capsule 1 Cap, Oral, Daily montelukast 10 mg, Oral, Daily Marmarth 7.5 mg-325 mg oral tablet 1 Tab, [...] ms QTC Calculation(Bezet) : 417 ms P [place] : 27 degrees R [place] : 24 degrees T [place] : 26 degrees Normal sinus rhythm Poor R wave progression Confirmed by Mona GUTIERREZ SURESH ([id number]), social media editor Odilia Vines ([id number]) on 05/12/2021 4:41:36 PM Assessment/Plan: Advanced spondylolisthesis [...] on filedocumented in this encounter Care Teams Neonatal Intensive Care Unit Nurse Relationship Specialty Start Date End Date Saima Dorman, HAND INSERTER OPERATOR [address] [address] PCP - General Nurse Practitioner 12/26/21 documented as of this encounter
--- OUTSIDE RECORDS SUMMARY | 2024-10-17 12:39 | XMS_ITS | Encounter Summary ---
Author Organization [employer] ([place], [place], [place], [place]) Address [address] [place] [address] Care Team Providers Care Driller And Reamer Name Role Phone Saima Dorman APRN Primary Care Provider Encounter Details Date Type Department Care Team (Late st Contact Info) Description 05/15/2021 Transcribed Document [facility] Neurology - [address] [place] [address] Rosalee Zheng MD [facility] [address] [place] [address] Social History Tobacco Use Types Packs/Day Years [...] Date Juventino rded Speak language other than Nigerien at home Not on file 03/18/2023 Want [...] or Dilaudid. We did also give her Temple to go home with instead of Percocet. [...] montelukast, 10 mg= 1 Tab, Oral, QPM Temple 5 mg-325 mg oral tablet, 1 Tab, [...] Lymph # 1.50 x10(3)/uL 05/15/2021 03:58 EDT [place] % 9.0 % 05/15/2021 03:58 EDT [place] # 0.97 K/uL 05/15/2021 03:58 EDT [place] [...] on filedocumented in this encounter Care Teams Driller And Reamer Relationship Specialty Start Date End Date Saima Dorman, AUGER PRESS OPERATOR [address] [address] PCP - General Nurse Practitioner 12/26/21 documented as of this encounter
--- OUTSIDE RECORDS SUMMARY | 2024-10-17 12:39 | XMS_ITS | Clinical Summary ---
Author Organization Healthcare Address [address] [place] [address] Care Team Providers Care Locomotive Crane Engineer Name Role Phone Saima Dorman CHRISTI Primary Care Provider [phone] Allergies Active Allergy Reactions Criticality Noted Date Comments Penicillins Itching,Rash,Unknown - Patient states they do not know rxn details Medium 02/05/2009 Sacubitril-Valsartan Other - please document in the comment field Low 10/01/2022 Per pt report very fatigued and weak Medications Symbicort 160-4.5 MCG/ACT inhaler 2 Active rosuvastatin (Crestor) 5 MG tablet 2 Active dilTIAZem CD (Cardizem CD) 240 MG 24 hr capsule 2 Active losartan (Cozaar) 50 MG tablet 2 Active furosemide (Lasix) 40 MG tablet 1 (one) time each day. Active montelukast (Singulair) 10 MG tablet 2 Active pantoprazole (Protonix) 40 MG EC tablet 1 (one) time each day. Active DULoxetine (Cymbalta) [address] capsule 2 Active levocetirizine (Xyzal) 5 MG tablet 2 Active Spiriva Respimat 2.5 MCG/ACT inhaler 2 Active DayVigo 5 MG tablet 2 Active ibandronate (Boniva) 150 MG tablet Take [...] Dupixent 300 MG/2ML solution prefilled syringe injection 2 Active Multiple Vitamin (multivitamin) capsule Take 1 capsule by mouth 1 (one) time each day. Active milk thistle 175 MG tablet Take 1 tablet (175 mg) by mouth 1 (one) time each day. Active HYDROcodone-aceta minophen ([place]) 7.5-325 MG tablet 2 Active methylPREDNISolon e (Medrol Dospak) 4 MG tablets 2 Active pregabalin (Lyrica) 150 MG capsule 2 Active hydrocortisone (Cortef) 10 MG tabletIndications :Adrenal insufficiency (Stock[place]'s disease) (CMS/HCC) Take 1 tablet (10 mg total) by mouth 1 (one) time each day. 90 tablet 3 2 Active cyclobenzaprine (Flexeril) 10 MG tablet Take 1 tablet (10 mg) by mouth 3 (three) times a day if needed for muscle spasms. Active bumetanide (Bumex) 1 MG tablet 3 Active Entresto 24-26 MG tablet 3 Active LORazepam (Ativan) 1 MG tabletIndications :Pruritus Take one tablet 30min before MRI, can repeat another dose if needed 2 tablet 4 Active Additional Information Patient not taking.Reported on 03/17/2024 venlafaxine XR (Effexor-XR) 75 MG 24 hr capsule Take 1 capsule (75 mg) by mouth 1 (one) time each day. 4 Active hydrOXYzine HCl (Atarax) 25 MG tabletIndications :Pruritus TAKE 1 TABLET BY MOUTH EVERY 8 HOURS IF NEEDED FOR ITCHING. 30 tablet 2 4 Active albuterol 108 (90 Base) MCG/ACT inhaler 5 Active aspirin 81 MG EC tablet Take 1 tablet (81 mg) by mouth Daily. Active carvedilol (Coreg) 12.5 MG tablet 1 tablet (12.5 mg). Active EPINEPHrine (Epipen) 0.3 MG/0.3ML injection syringe Active fluticasone (Flonase) 50 MCG/ACT nasal spray [place] 1 spray every day by intranasal route [...] in imaging for 1 dose. 2 tablet Active Active Problems Problem Noted Date Diagnosed [...] Resolved Date Acquired pes planus 08/06/2022 09/18/19 Posterior tibial tendinitis of right leg 08/06/2022 09/17/2022 Posterior tibial tendinitis of left leg 08/06/2022 09/17/2022 Acquired hallux valgus 08/06/202209/17 Hammer toe, acquired 08/06/2022 023 Encounters Date Type Department Care Team Description 07/19/2024 Results Follow-Up [facility] Medicine Specialties [address] [place] [address] Quin Levy MD 07/18/2024 10:03 AM EDT - 07/18/2024 11:59 PM EDT Hospital Encounter [facility] [address] [place] [address] Primary biliary cholangitis (CMS/HCC); Metabolic dysfunction-associa naz steatotic liver disease (MASLD); IPMN (intraductal papillary mucinous neoplasm) Discharge Disposition: Home or Self Care 07/18/2024 Travel 07/17/2024 Travel from Last 3 Months Immunizations Immunization Administration [...] Description 10/23/2024 11:20 AM EDT Office Visit [facility]ties [address] [place] [address] Quin Levy MD [address] [place] [address] Health Maintenance Due Date Last Done Comments [facility]-Bone Density Scan 1964 [facility]-HIV Screening 1964 [facility]-Hepatitis C Screening 1964 [facility]-/Child/Adol SDOH Screenings 1964 [facility]- SDOH Screenings 1982 [facility]-Adult SDOH Screenings 1982 [facility]-Pneumococcal Vaccine: 50+ Years (1 of 2 - PCV) 1983 CT Colonography 2009 FIT-DNA 2009 FIT 2009 FOBT 2009 Sigmoidoscopy 2009 [facility]-Breast Cancer Screening 2014 [facility]-Zoster Vaccines (1 of 2) 2014 HLX-UICUX-32 Vaccine (3 - Moderna risk series) 08/06/2020 [...] this topic Medical Devices Implanted Type Area Milieu Technician Device Identifier Shelf Expiration Date Model / Serial / Lot Medtronic Spinal Cord Stimulator-10/31 Implanted:10/31 (Quantity not on file) Spinal Cord Stimulator Back Medtronic [id number] / / Description:[employer] SCS LE AD MODEL: [id number], implant date 11/19/2023 Procedures Procedure Name Priority [...] was also performed using a 60Hz acoustic local driver. COMPARISON: MRI from 07/08/2023. FINDINGS: Gallbladder: [...] using the following sequences: coronal single shot [id number] fast spin echo, axial T2 weighted sequences [...] was also performed using a 60Hz acoustic local driver. COMPARISON: MRI from 07/08/2023. FINDINGS: Gallbladder: [...] was also performed using a 60Hz acoustic local driver. COMPARISON: MRI from 07/08/2023. FINDINGS: Gallbladder: [...] using the following sequences: coronal single shot [id number] fast spin echo, axial T2 weighted sequences [...] was also performed using a 60Hz acoustic local driver. COMPARISON: MRI from 07/08/2023. FINDINGS: Gallbladder: [...] <5.7 % 09/22/2022 2:29 PM EDT [facility] Blood Venous blood specimen / Unknown [...] Adults <6.0% Children and Adolescents <7.5% Source: [place] Diabetes Association. Standards of medical care in diabetes,2017. Diabetes Care.2017:40 (suppl 1):S1-S135. HbA1c assay performed by an ion-exchange chromatography method that is certified traceable to the DCCT. us Emanuel Tadeo MD LAB BLOOD ORDERABLES Final Result [facility] [address] [place] [address] from Last 3 Months or Most Recently Relevant to Health Maintenance [place] [address] ANTH Care Teams Locomotive Crane Engineer Relationship Specialty Start Date End Date Saima Dorman APRN [address] [place] [address] PCP - General 07/12/20
--- OUTSIDE RECORDS SUMMARY | 2024-10-17 12:39 | XMS_ITS | Encounter Summary ---
Author Organization [employer] ([place], [place], [place], [place]) Address [address] [place] [address] Care Team Providers Care Crusher Tender Name Role Phone Saima Dorman APRN Primary Care Provider Encounter Details Date Type Department Care Team (Late st Contact Info) Description 05/15/2021 Transcribed Document [facility] [place] [address] [place] [address] ProviderKarena MD [address] [place] [address] Social History Tobacco Use Types [...] Date Juventino rded Speak language other than Venezuelan at home Not on file 03/18/2023 Want [...] care provider or a person from your front office medical assistant company will show you how to use [...] it and its top with a disinfectant carpet cleaner. ? Air-dry it. ? Make sure [...] aerosol sprays. ? Rubbing alcohol. ? Hand recreation programmer. ??? When you go to a restaurant [...] not move around. Follow instructions from your front office medical assistant company about how to safely secure your [...] documents from your health care provider and front office medical assistant company before you travel. General safety tips [...] tubing. Where to find more information ??? [place] Lung Association: www.lung.org/oxygen Contact a health care [...] care provider or a person from your front office medical assistant company will show you how to use [...] provider. Document Revised: 04/18/2020 Document Reviewed: 02/13/2020 [employer] Patient Education ? 2020 [employer]. documented in this encounter Plan of Treatment Not on file documented as of this encounter Visit Diagnoses Not on filedocumented in this encounter Care Teams Crusher Tender Relationship Specialty Start Date End Date Saima Dorman APRN [address] [address] PCP - General Nurse Practitioner 12/26/21 documented as of this encounter
--- OUTSIDE RECORDS SUMMARY | 2024-10-17 12:39 | XMS_ITS | Encounter Summary ---
Author Organization [employer] ([place], [place], [place], [place]) Address [address] [place] [address] Care Team Providers Care Foreign Language Stenographer Name Role Phone Saima Dorman APRN Primary Care Provider Encounter Details Date Type Department Care Team (Late st Contact Info) Description 05/15/2021 Transcribed Document [facility] [place] Medicine [address] [place] [address] ProviderKarena MD [address] [place] [address] Social History Tobacco Use Types [...] Date Juventino rded Speak language other than Cape Verdean at home Not on file 03/18/2023 Want [...] on filedocumented in this encounter Care Teams Foreign Language Stenographer Relationship Specialty Start Date End Date Saima Dorman, CHRISTI [address] [phone] PCP - General Nurse Practitioner 12/26/21 documented as of this encounter
--- OUTSIDE RECORDS SUMMARY | 2024-10-17 12:39 | XMS_ITS | Encounter Summary ---
Author Organization [employer] ([place], [place], [place], [place]) Address [address] [place] [address] Care Team Providers Care Sheep Shearer Name Role Phone Saima Dorman APRN Primary Care Provider [phone] Encounter Details Date Type Department Care Team (Late st Contact Info) Description 05/13/2021 Transcribed Document [facility] [place] Family Medicine [address] [place] [address] ProviderKarena MD [address] [place] [address] Social History Tobacco Use Types [...] Date Juventino rded Speak language other than Belarusian at home Not on file 03/18/2023 Want [...] Evaluation and Treatme Ordered By: ROSALEE ZHENG MD-[facility] Active Diagnoses : 05/14/2021 12:00 Radiculopathy, lumbar region 05/13/2021 12:00 Spondylolisthesis, lumbar region Admission Date : 05/13/2021 06:34 Co-treated by, OT : assistant professor sculpture (MEDICAL SALES REPRESENTATIVE) Personal Devices : Personal Devices No Devices Recorded Assistive Devices : Assistive Devices No Devices Recorded Precautions in Place : Log roll precautions, Spinal Precautions LOIS PERALTA OT Student - 05/14/2021 14:38 EDT General Status Patient Received Status : Sitting edge of bed, Other: MEDICAL SALES REPRESENTATIVE in room Treatment Start Time : 05/14/2021 [...] : Pt was found sitting EOB with MEDICAL SALES REPRESENTATIVE in room. Pt was given AE and education. Pt was supervision for [place] [facility] [place] [facility]. Pt was set up assistance [...] PERALTA OT Student - 05/14/2021 14:39 EDT [place] OT Charges OT Selfcare/Hm Mgmt Ea 15 Min : 2 OT Eval Moderate Complexity : 1 LOIS PERALTA OT Student - 05/14/2021 14:39 EDT documented in this encounter Plan of Treatment Not on file documented as of this encounter Visit Diagnoses Not on filedocumented in this encounter Care Teams Sheep Shearer Relationship Specialty Start Date End Date Saima Dorman, ANIMAL TECHNICIAN [address] [phone] PCP - General Nurse Practitioner 12/26/21 documented as of this encounter
--- OUTSIDE RECORDS SUMMARY | 2024-10-17 12:39 | XMS_ITS | Encounter Summary ---
Author Organization [employer] ([place], [place], [place], [place]) Address [address] [place] [address] Care Team Providers Care Beading Installer Name Role Phone Saima Dorman APRN Primary Care Provider Reason for Visit * Reason Onset Date Comments Appointment 08/26/2022 Patient called r equesting an appointment, called back to schedule & no answer & mailbox not set up Encounter Details Date Type Department Care Team (Late st Contact Info) Description 08/26/2022 Telephone [facility] Cardiology - [facility] [address] [place] [address] Kayley Whitaker MD [address] [facility] [address] [place] [address] Appointment (Patient called requesting an [...] on filedocumented in this encounter Care Teams Beading Installer Relationship Specialty Start Date End Date Saima Dorman APRN [address] [phone] PCP - General Nurse Practitioner 12/26/21 documented as of this encounter
--- OUTSIDE RECORDS SUMMARY | 2024-10-17 12:39 | XMS_ITS | Encounter Summary ---
Author Organization [employer] ([place], [place], [place], [place]) Address [address] [place] [address] Care Team Providers Care Automation Tender Name Role Phone Saima Dorman APRN Primary Care Provider Encounter Details Date Type Department Care Team (Late st Contact Info) Description 05/13/2021 Transcribed Document [facility] [place] [address] [place] [address] ProviderKarena MD [address] [place] [address] Social History Tobacco Use Types [...] Date Juventino rded Speak language other than Togolese at home Not on file 03/18/2023 Want [...] Eval and Treat Ordered By: ROSALEE ZHENG MD-[facility] 05/13/2021 16:56 Physical Therapy Additional Tx [...] Yes CHRISTINA CHRISTIAN PTA 05/14/2021 11:48 EDT [facility] Goals Mobility/Bed Mobility LTG PT Grid Goal #1 Goal #2 Activity : Supine to sit Sit to stand Assist : Independent, modified Independent, modified Equipment : Bed, hospital Walker, front wheel Date to Meet : 05/27/2021 EDT 05/27/2021 EDT Goal Status : Intial Goal Progressing, continue CHRISTINA CHRISTIAN [facility] 05/14/2021 11:48 EDT CHRISTINA CHRISTIAN [facility] 05/14/2021 11:48 EDT Ambulation LTG Grid Goal #1 Device : Walker, front wheel Distance : 350 ft w/O2 sts >88% Assist : Independent, modified Date to Meet : 05/27/2021 EDT Goal Status : Progressing, continue CHRISTINA CHRISTIAN [facility] 05/14/2021 11:48 EDT Stairs LTG Grid Goal [...] CHRISTINA CHRISTIAN PTA - 05/14/2021 11:48 EDT [facility] Charges SOLAR SALES PT Therap. Exercise 15 min-SOLAR SALES : 1 PT Ther Activities Ea 15 Min-SOLAR SALES : 1 CHRISTINA CHRISTIAN PTA - 05/14/2021 11:48 EDT Electronically signed by Katie [facility] Conversion Visual Educator Cerner at 06/19/2022 8:57 AM CDT documented in this encounter Plan of Treatment Not on file documented as of this encounter Visit Diagnoses Not on filedocumented in this encounter Care Teams Automation Tender Relationship Specialty Start Date End Date Saima Dorman, CHRISTI [address] [phone] PCP - General Nurse Practitioner 12/26/21 documented as of this encounter
--- OUTSIDE RECORDS SUMMARY | 2024-10-17 12:39 | XMS_ITS | Encounter Summary ---
Author Organization [employer] ([place], [place], [place], [place]) Address [address] [place] [address] Care Team Providers Care Senior Software Systems Engineer Name Role Phone Saima Dorman APRN Primary Care Provider Encounter Details Date Type Department Care Team (Late st Contact Info) Description 01/22/2019 Transcribed Document [facility] [place] Family Medicine [address] [place] [address] ProviderKarena MD [address] [place], [place] [address] Social History Tobacco Use Types Packs/Day Years Used Date Smoking Tobacco: Never Assessed Comments Unknown Sex and Gender Information Value Date Recorded Sex Assigned at Not on file Legal Sex Female 5:23 PM CDT Gender Identity Not on file Sexual Orientation Not on file documented as of this encounter Miscellaneous Notes * [employer]ner Conversion Note - Karena Ashby MD - 01/22/2019 9:15 PM MILL ROLL REWINDER Orthopedic Nurse Navigator Entered On: 01/23/2019 14:00 EST Performed On: 01/22/2019 21:15 EST by Vandana Chun Nurse clean out driller helper Nurse Navigator Assessment Attended Joint Academy : Yes Joint AcademyType : Online Joint Academy Date : 01/22/2019 EST Type of Surgery : Total Knee Replacement, Left Joint Navigator Assessment Note : Patient viewed the online version of Joint Academy prior to surgery. Vandana Chun Nurse RN - 01/23/2019 13:59 EST documented in this encounter Plan of Treatment Not on file documented as of this encounter Visit Diagnoses Not on filedocumented in this encounter Care Teams Senior Software Systems Engineer Relationship Specialty Start Date End Date Saima Dorman, POULTRY TRIMMER [address] [place] [address] PCP - General Nurse Practitioner 12/26/21 documented as of this encounter
--- OUTSIDE RECORDS SUMMARY | 2024-10-17 12:39 | XMS_ITS | Encounter Summary ---
Author Organization [employer] ([place], [place], [place], [place]) Address [address] [place] [address] Care Team Providers Care Motor Pool Clerk Name Role Phone Saima Dorman APRN Primary Care Provider Encounter Details Date Type Department Care Team (Late st Contact Info) Description 05/15/2021 Transcribed Document [facility] [place] [address] [place] [address] ProviderKarena MD [address] [place] [address] Social History Tobacco Use Types [...] Date Juventino rded Speak language other than Bahraini at home Not on file 03/18/2023 Want [...] Insurance 1 Health Plan: [employer] Policy Number: [id number] Authorization Number: [id number] Insurance 2 Health Plan: MEDICARE Policy Number: [id number] Authorization Number: Insurance Primary Name : [employer] [id number] Authorization Status-Primary : Admit approved Reference Number-Primary : [id number] Authorization Number-Primary : [id number] Number of Days Authorized-Primary : 0 Day(s) Authorized Service Begin Date-Primary : 05/13/2021 EDT Authorized Service End Date-Primary : 05/13/2021 EDT Authorization Comments-Primary : Ref # per Day Dong, payor has access to EMR, 05/13-05/15, NRD 05/16 Historical Authorization Comments-Primary : Comment 1: clinicals submitted per [facility] for c/s auth (ALE MERAZ RN-UTILIZATION MANAGEMENT REVIEW NON-EXEMPT 05/15/2021 08:58) Comment 2: 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 CT guided on 05-13-21 per [facility] [employer] IP auth# [id number] 1 day approved (JOCELYN ARMSTRONG, Director Fraud 05/12/2021 15:44) ALE MERAZ RN-UTILIZATION MANAGEMENT REVIEW NON-EXEMPT - 05/15/2021 13:11 EDT documented in this encounter Plan of Treatment Not on file documented as of this encounter Visit Diagnoses Not on filedocumented in this encounter Care Teams Motor Pool Clerk Relationship Specialty Start Date End Date Saima Dorman, CHRISTI [address] [address] PCP - General Nurse Practitioner 12/26/21 documented as of this encounter
--- OUTSIDE RECORDS SUMMARY | 2024-10-17 12:39 | XMS_ITS | Encounter Summary ---
Author Organization Healthcare Address [address] [place] [address] Care Team Providers Care Network Contract Manager Name Role Phone Saima Dorman FILING AND POLISHING SUPERVISOR Primary Care Provider [phone] Encounter Details Date Type Department Care Team (Late Contact Info) Description 07/19/2024 Results Follow-Up [facility] Medicine Specialties [address] [place] [address] Quin Levy MD [address] [facility] [address] [place] [address] Social History Tobacco Use Types [...] Description 10/23/2024 11:20 AM EDT Office Visit [facility] Medicine Specialties [address] [place] [address] Quin Levy MD [address] [place] [address] documented as of this encounter Visit Diagnoses Not on filedocumented in this encounter Additional Health Concerns Assessment Noted Time A fall risk assessment has been complete d for the patient 03/17/2024 1:14 PM EST A Body Mass Index follow-up plan has been documented for the patient 03/24/2024 1:05 AM EST documented as of this encounter Care Teams Network Contract Manager Relationship Specialty Start Date End Date Saima Dorman APRN [address] [place] [address] PCP - General 07/12/20 documented as of this encounter
--- OUTSIDE RECORDS SUMMARY | 2024-10-17 12:39 | XMS_ITS | Encounter Summary ---
Author Organization [employer] ([place], [place], [place], [place]) Address [address] [place] [address] Care Team Providers Care Manager Retirement Name Role Phone Saima Dorman APRN Primary Care Provider Encounter Details Date Type Department Care Team (Late st Contact Info) Description 05/15/2021 Transcribed Document [facility] [place] Medicine [address] [place] [address] ProviderKarena MD [address] [place] [address] Social History Tobacco Use Types [...] Date Juventino rded Speak language other than French at home Not on file 03/18/2023 Want [...] CARE BEDSIDE NON-EXEMPT - 05/15/2021 15:12 EDT documented in this encounter Plan of Treatment Not on file documented as of this encounter Visit Diagnoses Not on filedocumented in this encounter Care Teams Manager Retirement Relationship Specialty Start Date End Date Saima Dorman, SENIOR STACK ENGINEER [address] [phone] PCP - General Nurse Practitioner 12/26/21 documented as of this encounter
--- OUTSIDE RECORDS SUMMARY | 2024-10-17 12:39 | XMS_ITS | Encounter Summary ---
Author Organization [facility] ([place], [place], [place], [place]) Address [address] [place] [address] Care Team Providers Care Fire Hose Curer Name Role Phone Saima Dorman APRN Primary Care Provider Encounter Details Date Type Department Care Team (Late st Contact Info) Description 05/19/2021 Transcribed Document [facility] [place] Family Medicine [address] [place] [address] ProviderKarena MD [address] [place] [address] Social History Tobacco Use Types [...] On: 05/19/2021 14:04 EDT by Lucy Vidales, Supervisor Pipe Manufacture Primary Insurance Authorization Authorization and Policy Numbers : Insurance 1 Health Plan: HUMANA Policy Number: [id number] Authorization Number: [id number] Insurance 2 Health Plan: MEDICARE Policy Number: [id number] Authorization Number: Insurance Primary Name : Humana - [id number] Authorization Status-Primary : Approved Auth/Referral Contact Name-Primary : DC Reference Number-Primary : [id number] Authorization Number-Primary : [id number] Number of Days Authorized-Primary : 2 Day(s) Authorized Service Begin Date-Primary : 05/13/2021 EDT Authorized Service End Date-Primary : 05/15/2021 EDT Authorization Comments-Primary : Discharge summary faxed. Historical Authorization Comments-Primary : Comment 1: Ref # per Day Dong, payor has access to EMR, 05/13-05/15, NRD 05/16 (ALE MERAZ RN-UTILIZATION MANAGEMENT REVIEW NON-EXEMPT 05/15/2021 13:11) Comment 2: clinicals submitted per [facility] for c/s auth (ALE MERAZ RN-UTILIZATION MANAGEMENT REVIEW NON-EXEMPT 05/15/2021 08:58) Comment 3: 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 CT guided on 05-13-21 per [facility] [employer] IP auth# [id number] 1 day approved (JOCELYN ARMSTRONG, Hydro Mechanic 05/12/2021 15:44) Lucy Vidales, Supervisor Pipe Manufacture - 05/19/2021 14:04 EDT Electronically signed by Katie [facility] Conversion Mincemeat Maker Cerner at 06/16/2022 11:03 AM CDT documented in this encounter Plan of Treatment Not on file documented as of this encounter Visit Diagnoses Not on filedocumented in this encounter Care Teams Fire Hose Curer Relationship Specialty Start Date End Date Saima Dorman, SENIOR PROGRAM MANAGER [address] [place] [address] PCP - General Nurse Practitioner 12/26/21 documented as of this encounter
--- OUTSIDE RECORDS SUMMARY | 2024-10-17 12:39 | XMS_ITS | Encounter Summary ---
Author Organization [employer] ([place], [place], [place], [place]) Address [address] [place] [address] Care Team Providers Care Energy Sales Broker Name Role Phone Saima Dorman APRN Primary Care Provider Encounter Details Date Type Department Care Team (Late st Contact Info) Description 05/15/2021 Transcribed Document [facility] [place] Family Medicine [address] [place] [address] ProviderKarena MD [address] [place] [address] Social History Tobacco Use Types [...] 05/15/2021 14:56 EDT Electronically signed by Katie [facility] Conversion Quitline Counselor Cerner at 06/16/2022 11:08 AM CDT documented in this encounter Plan of Treatment Not on file documented as of this encounter Visit Diagnoses Not on filedocumented in this encounter Care Teams Energy Sales Broker Relationship Specialty Start Date End Date Saima Dorman, GASTROENTEROLOGY PHYSICIAN [address] [place] [address] PCP - General Nurse Practitioner 12/26/21 documented as of this encounter
--- OUTSIDE RECORDS SUMMARY | 2024-10-17 12:39 | XMS_ITS | Encounter Summary ---
Author Organization [employer] ([place], [place], [place], [place]) Address [address] [place] [address] Care Team Providers Care Marine Fireman Name Role Phone Saima Dorman APRN Primary Care Provider Encounter Details Date Type Department Care Team (Late st Contact Info) Description 05/13/2021 Transcribed Document [facility] [place] Family Medicine [address] [place] [address] ProviderKarena MD [address] [place] [address] Social History Tobacco Use Types [...] Date Juventino rded Speak language other than Malian at home Not on file 03/18/2023 Want [...] on filedocumented in this encounter Care Teams Marine Fireman Relationship Specialty Start Date End Date Saima Dorman, CHRISTI [address] [id number] PCP - General Nurse Practitioner 12/26/21 documented as of this encounter
--- OUTSIDE RECORDS SUMMARY | 2024-10-17 12:39 | XMS_ITS | Encounter Summary ---
Author Organization [employer] ([place], [place], [place], [place]) Address [address] [place] [address] Care Team Providers Care Retrofit Installer Name Role Phone Saima Dorman APRN Primary Care Provider Encounter Details Date Type Department Care Team (Late st Contact Info) Description 05/15/2021 Transcribed Document [facility] [place] Family Medicine [address] [place] [address] ProviderKarena MD [address] [place] [address] Social History Tobacco Use Types [...] 05/15/2021 15:39 EDT Electronically signed by Katie [facility] Conversion Merchandising Team Lead Cerner at 06/16/2022 11:01 AM CDT documented in this encounter Plan of Treatment Not on file documented as of this encounter Visit Diagnoses Not on filedocumented in this encounter Care Teams Retrofit Installer Relationship Specialty Start Date End Date Saima Dorman, MANAGER LAUNDRY [address] [place] [address] PCP - General Nurse Practitioner 12/26/21 documented as of this encounter
--- OUTSIDE RECORDS SUMMARY | 2024-10-17 12:39 | XMS_ITS | Encounter Summary ---
Author Organization [employer] ([place], [place], [place], [place]) Address [address] [place] [address] Care Team Providers Care Pressure Sealer And Tester Name Role Phone Saima Dorman APRN Primary Care Provider [phone] Encounter Details Date Type Department Care Team (Late st Contact Info) Description 05/12/2021 Transcribed Document [facility] [place] Family Medicine [address] [place] [address] ProviderKarena MD [address] [place] [address] Social History Tobacco Use Types [...] On: 05/12/2021 15:44 EDT by JOCELYN ARMSTRONG, Net Developer Contract Primary Insurance Authorization Authorization and Policy Numbers : Insurance 1 Health Plan: HUMANA Policy Number: [id number] Authorization Number: Insurance 2 Health Plan: MEDICARE Policy Number: [id number] Authorization Number: Insurance Primary Name : Humana [id number] Authorization Status-Primary : Admit approved Authorization Number-Primary : [id number] Number of Days Authorized-Primary : 0 Day(s) Authorized Service Begin Date-Primary : 05/13/2021 EDT Authorized Service End Date-Primary : 05/13/2021 EDT Authorization Comments-Primary : 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 CT guided on 05-13-21 per [facility] [employer] IP auth# [id number] 1 day approved Historical Authorization Comments-Primary : No Authorization Comments Found JOCELYN ARMSTRONG, Net Developer Contract - 05/12/2021 15:44 EDT documented in this encounter Plan of Treatment Not on file documented as of this encounter Visit Diagnoses Not on filedocumented in this encounter Care Teams Pressure Sealer And Tester Relationship Specialty Start Date End Date Saima Dorman, CHRISTI [address] [address] PCP - General Nurse Practitioner 12/26/21 documented as of this encounter
--- NOTE | 2024-10-17 13:15 | CA_ITS ---
APPROVED REPORT EXAM: Comprehensive 2D, Doppler, and color-flow Echocardiogram Golf Club Assembler: BRIGETTE Garcia, RVS Ht: 5 ft 2 in Wt: 270lbs BSA: 2.17 BP: 118/68 mmHg Indications: Dyspnea, Pre-diabetes Echo Enhancing Agent Comments: Technically difficult exam due to patient factors 2D Dimensions LVDs 3.00 cm Left Atrium 4.14 cm M-Mode Dimensions RVDd 2.29 cm (0.9-2.6) LA Diam 4.98 cm (1.9-4.0) LVDd 5.60 cm (3.5-5.7) LVDs 3.89 cm (3.5-5.7) IVSd 1.24 cm (0.6-1.1) PWd 1.33 cm (0.6-1.1) EF (Teich) 55.00% EPSs 0.84 cm FS 32.00% EDV (Teich) 195.40 mL TAPSE 1.37 (<1.7) ESV (Teich) 65.50 mL LV Diastology E Decel Time 320 (160-240 msec) E/A Ratio 0.69 MED A' 9.20 cm/s LAT A' 10.20 cm/s Aortic Valve IFEOMA Index 1.63 cm2/m2 AoV Peak Darrell. 138.0 (50-130 cm/s) AO Peak GR. 7.60 mmHg AO Mean GR. 3.70 (<5 mmHg) AO VTI 21.9 (18-25 cm) IFEOMA (VTI) 3.62 (2.5-4.5 cm2) Mitral Valve MV A Velocity 95.0 (40-130 cm/s) E/A Ratio 0.69 Left Ventricle The left ventricle is normal size. Left ventricular systolic function is normal. The left ventricular ejection fraction is within the normal range. There is increased left ventricular wall thickness. There is normal LV segmental wall motion. Transmitral Doppler flow pattern suggests impaired LV relaxation. LVEF is 55% Right Ventricle The right ventricle is normal size. The right ventricular systolic function is normal. Atria The left atrium is mildly dilated. The right atrium is mildly dilated. There is no color Doppler evidence of interatrial shunt. Aortic Valve The aortic valve is mildly thickened. There is no hemodynamically significant aortic valvular stenosis. No aortic regurgitation is present. Mitral Valve The mitral valve is normal in structure. No evidence of mitral valve stenosis. Trace mitral regurgitation is present. Tricuspid Valve The tricuspid valve leaflets are thin and pliable. Trace tricuspid regurgitation. There is insufficient TR jet to estimate RVSP. Pulmonic Valve The pulmonary valve is grossly normal in structure. Trace pulmonic valve regurgitation is present. Great Vessels The aortic root is normal in size. IVC is normal in size and collapses >50% with inspiration. Pericardium There is no pericardial effusion. Other Information Study Quality: Fair Conclusion Normal biventricular systolic function. Mild biatrial dilation. No significant valvular stenosis or regurgitation. Electronically signed by : Mady Elizondo MD 10/19/2024 13:29:23
--- NOTE | 2024-10-17 14:00 | CA_ITS ---
FINAL REPORT TECHNIQUE: Crocker scale, color and spectral doppler images of the bilateral carotid arteries were obtained. CLINICAL HISTORY: CAD, Pre-diabetes COMPARISON: None FINDINGS: Peak systolic velocity in the right internal carotid artery is 109 cm/sec. The internal carotid to common carotid artery ratio is 1.4. There is no significant carotid artery stenosis and mild plaque formation. The right vertebral artery is normal in direction. Peak systolic velocity in the left internal carotid artery is 151 cm/sec. The internal carotid to common carotid artery ratio is 2.04. There is no significant carotid artery stenosis and mild plaque formation. The left vertebral artery is normal in direction. IMPRESSION: No ultrasound evidence of hemodynamically significant carotid artery stenosis. Normal peak systolic velocities and normal internal to common carotid artery ratios bilaterally. Reviewed, Interpreted and Dictated by Fito Dillon MD Transcribed by Sowmya Hernández Authenticated and . [facility]
== END 2024-10-17 23:59 | disposition home or self-care (01) ==
LOC: RT 12:36
PROVIDERS: PCP Nurse Practitioner Family; Visit Provider Nurse Practitioner
DX: Z01.810 Encounter for preprocedural cardiovascular examination (principal); I11.9 Hypertensive heart disease without heart failure; I25.10 Atherosclerotic heart disease of native coronary artery without angina pectoris; R94.31 Abnormal electrocardiogram [ECG] [EKG]; R42 Dizziness and giddiness; R73.03 Prediabetes
CPT/HCPCS: 93306; 93880

== ENCOUNTER 2024-10-19 11:06 | Outpatient (CLI) | payer BC, SELFPAY ==
--- NOTE | 2024-10-19 | CA_ITS ---
APPROVED REPORT Exam: Pharmacologic Technologist: Hannah Young Ht: 5 ft 5 in Wt: 247 lbs BSA: 2.16 m2 Medical History Medications: albuterol, aspirin, symbicort, montekulast, bumetanide, calcium, pantoprazole, cardvdilol, trulance, clotrimazole 1%, pregabalin, rosuvastatin, cyclovenzaprine, farxiga, spiriva, pristiq, ursodiol, dupixent, glycopyrrolate, hydrocodone-tylenol, losartan. Allergies: q Stress Test Details Test: Lexiscan Reason for pharmacologic stress test: physical limitation. HR Resting HR: 68 bpm Max Heart Rate (APMHR): 160 bpm Max HR Achieved: 84 bpm Target HR (85% APMHR): 136 bpm % of APMHR: 53 Recovery HR: 76 bpm BP Resting BP: 108.0/67.0 mmHg Max BP: 109.0/61.0 mmHg Recovery BP: 109.0/61.0 mmHg ECG Resting ECG: SR PVC. Stress ECG Conclusion Vasodilation Minute 3: nausea-Pt placed in reclined position abdominal epigastric discomfort. Indigestion- belching with drink. Symptoms: nausea/abdominal discomfort. Arrhythmias/Ectopy: PVC. ST-T Changes: <than 1.5mm ST segment changes. Conclusion: Non-diagnostic ECG/Lexiscan. Electronically signed by : Mady Elizondo MD 10/19/2024 15:45:09
--- OUTSIDE RECORDS SUMMARY | 2024-10-19 11:09 | XMS_ITS | Encounter Summary ---
Author Organization Healthcare Address [address] [place] [place] [address] Care Team Providers Care Rehabilitation Therapist Name Role Phone Saima Dorman INTERNAL MEDICINE NURSE PRACTITIONER Primary Care Provider [phone] Encounter Details Date Type Department Care Team (Late Contact Info) Description 07/19/2024 Results Follow-Up [facility] Medicine Specialties [address] [place] [address] Quin Levy MD [address] [facility] [address] [place] [address] Social History Tobacco Use Types [...] Description 10/23/2024 11:20 AM EDT Office Visit [facility] Medicine Specialties [address] [place] [address] Quin Levy MD [address] [place] [id number] documented as of this encounter Visit Diagnoses Not on filedocumented in this encounter Additional Health Concerns Assessment Noted Time A fall risk assessment has been complete d for the patient 03/17/2024 1:14 PM EST A Body Mass Index follow-up plan has been documented for the patient 03/24/2024 1:05 AM EST documented as of this encounter Care Teams Rehabilitation Therapist Relationship Specialty Start Date End Date Saima Dorman APRN [address] [place] [address] PCP - General 07/12/20 documented as of this encounter
--- OUTSIDE RECORDS SUMMARY | 2024-10-19 11:09 | XMS_ITS | Clinical Summary ---
Author Organization Healthcare Address [address] [place] [address] Care Team Providers Care Rigging Loft Mechanic Name Role Phone Saima Dorman CHRISTI Primary Care Provider [phone] Allergies Active Allergy Reactions Criticality Noted Date [...] (one) time each day. Active HYDROcodone-aceta minophen ([place]) 7.5-325 MG tablet 2 Active methylPREDNISolon e (Medrol Dospak) 4 MG tablets 2 Active pregabalin (Lyrica) 150 MG capsule 2 Active hydrocortisone (Cortef) 10 MG tabletIndications :Adrenal insufficiency (Spiritwood's disease) (CMS/HCC) Take 1 tablet (10 mg [...] Active fluticasone (Flonase) 50 MCG/ACT nasal spray [place] 1 spray every day by intranasal route [...] Department Care Team Description 07/19/2024 Results Follow-Up [facility] Medicine Specialties [address] [place] [address] Quin Levy MD from Last 3 Months Immunizations Immunization Administration [...] Description 10/23/2024 11:20 AM EDT Office Visit [facility] Medicine Specialties [address] [place] [address] Quin Levy MD [address] [place] [address] Health Maintenance Due Date Last Done Comments [facility]-Bone Density Scan 1964 [facility]-HIV Screening 1964 [facility]-Hepatitis C Screening 1964 [facility]-Infant/Child/Adol SDOH Screenings 1964 [facility]- SDOH Screenings 1982 [facility]-Adult SDOH Screenings 1982 [facility]-Pneumococcal Vaccine: 50+ Years (1 of 2 - PCV) 1983 CT Colonography 2009 FIT-DNA 2009 FIT 2009 FOBT 2009 Sigmoidoscopy 2009 [facility]-Breast Cancer Screening 2014 [facility]-Zoster Vaccines (1 of 2) 2014 [id number] Vaccine (3 - Moderna risk series) 08/06/2020 [...] this topic Medical Devices Implanted Type Area Two Way Radio Technician Device Identifier Shelf Expiration Date Model / Serial / Lot Medtronic Spinal Cord Stimulator-10/31 Implanted:10/31 (Quantity not on file) Spinal Cord Stimulator Back Medtronic [id number] / / Description:MEDTRONIC SCS LE AD MODEL: [id number], implant date 11/19/2023 Procedures Procedure Name Priority Date/Time Associated Diagnosis Comments HEMOGLOBIN A1C Routine 09/22/2022 11:18 AM EDT Adrenal insufficiency (CMS/HCC) from Last 3 Months or Most Recently Relevant to Health Maintenance Results * (ABNORMAL) Hemoglobin A1c (09/22/2022 11:18 AM [...] Adults <6.0% Children and Adolescents <7.5% Source: [employer]. Standards of medical care in diabetes,2017. Diabetes Care.2017:40 (suppl 1):S1-S135. HbA1c assay performed by an ion-exchange chromatography method that is certified traceable to the DCCT. Emanuel Tadeo MD LAB BLOOD ORDERABLES Final Result [facility] [address] [place] [address] from Last 3 Months or Most Recently Relevant to Health Maintenance [place] [address] [facility] Care Teams Rigging Loft Mechanic Relationship Specialty Start Date End Date Saima Dorman APRN [address] [place] [address] PCP - General 07/12/20
--- OUTSIDE RECORDS SUMMARY | 2024-10-19 11:09 | XMS_ITS | Encounter Summary ---
Author Organization Healthcare Address [address] [place] [address] Care Team Providers Care [employer] Name Role Phone DandyAnnieyair Persaud APRN Primary Care Provider [phone]- [phone] Reason for Referral * Consultation (Routine) - Closed Specialty Diagnoses / Procedures Referred By Jordan watson Referred To Contact Gastroenterology Diagnoses Abnormal CT scan, liver Fatty liver Karolyn Ramos PA [address] [facility] [address] [place] [address] Phone: tel: fax: Referral ID Status Reason Start Date Expiration Date V isits Requested Visits Authorized [id number] Closed Specialty Services Required 01/18/2023 07/19/2024 1 1 Encounter Details Date Type Department Care Team (Late st Contact Info) Description 01/18/2023 [facility] [address] [place] [address] Karolyn Ramos PA [address] [place] [address] scan, liver (Primary [...] Description 10/23/2024 11:20 AM EDT Office Visit [facility] Medicine Specialties [address] [place] [address] Quin Levy MD [address] [place] [address] Scheduled Referrals Name Type Priority [...] documented as of this encounter Care Teams [employer] Relationship Specialty Start Date End Date Saima Dorman APRN [address] [place] [address] PCP - General 07/12/20 documented as of this encounter
--- OUTSIDE RECORDS SUMMARY | 2024-10-19 11:09 | XMS_ITS | Clinical Summary ---
[facility] Organization [facility] Address [address] [place] [address] Care Team Providers Care Apprentice Jockey Name Role Phone Unavailable Primary Care Provider [...] 2023- season) 2023 INFLUENZA VACCINE 11/29/2024 Insurance [facility] PPO
[2024-10-19] MEDS: SODIUM CHLORIDE 0.9% 10ML SYR (RAD ONLY) 10 ML IV ×2 (11:30→13:30)
--- NOTE | 2024-10-19 11:30 | NM_ITS ---
APPROVED REPORT Exam: Nuclear Stress Test Indication: cad, h/marcelina, 1 stent, hytension, pre-diabetes, hyperlipidemia, fm hx., sob, fatigue, abn ekg Patient Location: Outpatient Stress Tech: Hannah Lindsay [place] Tech:Ayse Arredondo, ARRT RT (R)(N)(M) Ht: 5 ft 5 in Wt: 247 lbs Bra Size: 42g HR: 68 bpm BP: 108/67 mmHg BSA: 2.16 m2 TID: 1.26 BMI: 41.0 History: cad, h/marcelina, 1 stent, hytension, pre-diabetes, hyperlipidemia, fm hx., sob, fatigue, abn ekg Procedure: Patient received 0.4 mg of intravenous Lexiscan, resting heart rate 68 bpm, resting blood pressure 108/67 mmHg, with Lexiscan maximum heart rate achieved was 84 bpm which is % of the maximum predicted heart rate and blood pressure was 95/55 mmHg. With Lexiscan, patient denied any complaint of chest pain. Cardiac Stress and Resting SPECT Images: Cardiac Stress and Resting SPECT images were obtained using technetium 99m Myoview 30.0 mCi stress and 10.51 mCi at rest. Resting and stress imaging in supine and prone positions demonstrate no evidence of fixed or reversible perfusion defects. There is increase in transient ischemic dilatation ratio (TID 1.26), which may be suggestive of possible multivessel disease or balanced ischemia. Gated imaging demonstrates normal global and regional LV systolic function. LVEF is calculated at > 75%. Conclusion: no evidence of fixed or reversible perfusion defects. There is increase in transient ischemic dilatation ratio (TID 1.26), which may be suggestive of possible multivessel disease or balanced ischemia. Gated imaging demonstrates normal global and regional LV systolic function. LVEF is calculated at > 75%. Electronically signed by : Mady Elizondo MD 10/19/2024 15:35:21
[2024-10-19] MEDS: ISOTOPE MYOVIEW (PER STUDY) 1 DOSE IV (14:12)
== END 2024-10-19 23:59 | disposition home or self-care (01) ==
LOC: RAD 11:07
PROVIDERS: PCP Nurse Practitioner Family; Visit Provider Nurse Practitioner
DX: Z01.810 Encounter for preprocedural cardiovascular examination (principal); I49.3 Ventricular premature depolarization; I25.10 Atherosclerotic heart disease of native coronary artery without angina pectoris; I10 Essential (primary) hypertension; R94.31 Abnormal electrocardiogram [ECG] [EKG]; I25.2 Old myocardial infarction; E78.5 Hyperlipidemia, unspecified; R73.03 Prediabetes; R94.39 Abnormal result of other cardiovascular function study; Z95.5 Presence of coronary angioplasty implant and graft
CPT/HCPCS: 78452; 93016; 93017; 93018; A9502; J2785

== ENCOUNTER 2024-10-27 08:44 | Outpatient (CLI) | payer BC, SELFPAY ==
[2024-10-27 14:36] LABS: Uric Acid 5.7 mg/dl (2.5-6.2)
[2024-10-27 14:53] LABS: Hemoglobin A1C 6.4 % (4.0-6.0)
--- OUTSIDE RECORDS SUMMARY | 2024-10-30 08:46 | XMS_ITS | Encounter Summary ---
Author Organization [employer] ([place], [place], [place], [place]) Address [address] [place] [address] Care Team Providers Care Sports Commentator Name Role Phone Saima Dorman APRN Primary Care Provider Encounter Details Date Type Department Care Team (Late st Contact Info) Description 05/14/2021 Transcribed Document [facility] [place] Family Medicine [address] [place] [address] ProviderKarena MD [address] [place] [address] Social History Tobacco Use Types [...] Date Juventino rded Speak language other than Angolan at home Not on file 03/18/2023 Want [...] Marian Erickson RN - 05/14/2021 6:13 EDT documented in this encounter Plan of Treatment Not on file documented as of this encounter Visit Diagnoses Not on filedocumented in this encounter Care Teams Sports Commentator Relationship Specialty Start Date End Date Saima Dorman, FOOD SPECIALIST [address] [place] [address] PCP - General Nurse Practitioner 12/26/21 documented as of this encounter
--- OUTSIDE RECORDS SUMMARY | 2024-10-30 08:46 | XMS_ITS | Encounter Summary ---
Author Organization [employer] ([place], [place], [place], [place]) Address [address] [place] [address] Care Team Providers Care Tuckpointer Cleaner Caulker Name Role Phone Saima Dorman APRN Primary Care Provider [phone] Encounter Details Date Type Department Care Team (Late st Contact Info) Description 05/14/2021 Transcribed Document [facility] Neurology - [address] [place] [address] Rosalee Zheng MD [facility] [place] [address] [place] [address] Social History Tobacco Use Types Packs/Day Years [...] Date Juventino rded Speak language other than Moroccan at home Not on file 03/18/2023 Want [...] # 0.86 x10(3)/uL (Low) 05/14/2021 03:25 EDT [place] % 6.8 % 05/14/2021 03:25 EDT [place] # 0.96 K/uL 05/14/2021 03:25 EDT Eos [...] on filedocumented in this encounter Care Teams Tuckpointer Cleaner Caulker Relationship Specialty Start Date End Date Saima Dorman, MAINTENANCE ANALYST [address] [address] PCP - General Nurse Practitioner 12/26/21 documented as of this encounter
--- OUTSIDE RECORDS SUMMARY | 2024-10-30 08:46 | XMS_ITS | Encounter Summary ---
Author Organization [employer] ([place], [place], [place], [place]) Address [address] [place] [address] Care Team Providers Care Foam Dispenser Name Role Phone Saima Dorman APRN Primary Care Provider [phone] Encounter Details Date Type Department Care Team (Late st Contact Info) Description 05/14/2021 Transcribed Document [facility] Radiology [address] [place] [address] Chelsey Corea MD [address] [place] [id number] Social History Tobacco Use Types Packs/Day [...] 1965 Associated Diagnoses: None Author: ANDIE HILL PA-[facility] 05/14/21 CC: postop medical management S: pt is still super sleepy. She was trying to use her CPAP last night. says it kept having seal broken. Pt is doing ok. No f'/c/s. No n/v/d. (+) gas, (-) BM. No CP, SOA, palpitations. No cough or sputum. Urinating well. +post op pain. Using incentive spirometer. HPI: 56 YO female presented to [facility] for a L4-[address] Bledsoe. Pt found to have advanced spondylolisthesis and failed conservative outpt interventions. Pt has elected for surgical intervention. We are asked to follow for postop medical management. Initial visit on floor -- pt is very sleepy from surgery and pain meds. Dtr is present and answers questions for pt. Denies prior stroke or seizure. Denies CT or cardiac arrhythmia. Denies DM. Denies COPD. [...] replacement. LAPS W/VAGINAL HYSTERECTOMY > 250 GRAMS (55511). septal plasty. cholecysectomy. bladder sling. cortisone back injections. FHx: Mother - HTN, CAD Father - Siblings - HTN SHx: No alcohol, tob or illicit drug use. Home Medications (19) Active buPROPion 150 mg, Oral, Daily cyclobenzaprine 10 mg, PRN, Oral, TID dilTIAZem 240 mg, Oral, Daily DULoxetine 30 mg, Oral, BID Dupixent 200 mg, SubCutaneous, [id number] Lasix 40 mg, Oral, Daily levocetirizine 5 [...] ms QTC Calculation(Bezet) : 417 ms P [place] : 27 degrees R [place] : 24 degrees T [place] : 26 degrees Normal sinus rhythm Poor R wave progression Confirmed by Mona GUTIERREZ, ELEUTERIO ([id number]), news videotape editor Odilia Vines ([id number]) on 05/12/2021 4:41:36 PM Assessment/Plan: Advanced spondylolisthesis [...] on filedocumented in this encounter Care Teams Foam Dispenser Relationship Specialty Start Date End Date Saima Dorman, CHRISTI [address] [id number] PCP - General Nurse Practitioner 12/26/21 documented as of this encounter
--- OUTSIDE RECORDS SUMMARY | 2024-10-30 08:46 | XMS_ITS | Encounter Summary ---
Author Organization [employer] ([place], [place], [place], [place]) Address [address] [place] [address] Care Team Providers Care Landscape Horticulture Instructor Name Role Phone Yessica Dorman APRN Primary Care Provider Encounter Details Date Type Department Care Team (Late st Contact Info) Description 05/14/2021 Transcribed Document [facility] [place] Medicine [address] [place] [address] ProviderKarena MD [address] [place] [address] Social History Tobacco Use Types [...] Date Juventino rded Speak language other than Qatari at home Not on file 03/18/2023 Want [...] On: 05/14/2021 17:16 EDT by CELSO LEIJA RN-Parole Director Initial Assessment I Previously Documented Living Environment [...] have PCP Listed? : Yes CELSO LEIJA RN-Parole Director - 05/14/2021 17:16 EDT Initial Assessment II Sensory and Motor Deficits : Weakness Current Home Treatments and Equipment : Bedside commode, CPAP, Oxygen therapy, Shower chair, Walker Home Equipment Contact Information : Radha Does the Patient have a Floor to SNF Benefit? : No CELSO LEIJA RN-Parole Director - 05/14/2021 17:16 EDT Discharge Needs I Anticipated Discharge Date : 05/15/2021 EDT Anticipated Discharge To, CM : Home with family care, Home with home health Current Home Treatment/Equipment : Current Home Treatment/Equipment No qualifying data available. Post Acute/Home Treatments : Oxygen/Supplies, Other: wheels for walker Documentation Status Complete : Yes CELSO LEIJA RN-Parole Director - 05/14/2021 17:16 EDT Discharge Needs II Professional Skilled Services : Professional Skilled Services No qualifying data available. Needs Assistance with Transportation : No Discharge Options Discussed with Patient : DME, Home Health Patient Discharge Goal : Home health care CELSO LEIJA RN-Parole Director - 05/14/2021 17:16 EDT Narrative Note Narrative [...] tomorrow 05/15. CM will follow. CELSO LEIJA RN-Parole Director - 05/14/2021 17:16 EDT documented in this encounter Plan of Treatment Not on file documented as of this encounter Visit Diagnoses Not on filedocumented in this encounter Care Teams Landscape Horticulture Instructor Relationship Specialty Start Date End Date Yessica Dorman APRN [address] [address] PCP - General Nurse Practitioner 12/26/21 documented as of this encounter
--- OUTSIDE RECORDS SUMMARY | 2024-10-30 08:46 | XMS_ITS | Encounter Summary ---
Author Organization [employer] ([place], [place], [place], [place]) Address [address] [place] [address] Care Team Providers Care Wedding Planning Internship Name Role Phone Saima Dorman APRN Primary Care Provider Reason for Referral * Flouroscopy (Routine) - Closed Specialty Diagnoses / Procedures Referred By Contac t Referred To Contact Diagnoses Chronic respiratory failure with hypoxia (HCC) Procedures [place] sniff test Leanne Pearl PA-C [address] [address] Phone: tel: fax: Referral ID Status Reason Start Date Expiration Date Visits Re quested Visits Authorized [id number] Closed 11/11/2023 11/10/2024 1 1 Encounter Details Date Type Department Care Team (Late st Contact Info) Description 11/11/2023 Outside Orders [facility] Central Scheduling [address] [place] [address] Leanne Pearl PA-C [address] [address] Chronic respiratory failure with hypoxia [...] Date Juventino rded Speak language other than Niuean at home Not on file 03/18/2023 Want [...] (HCC) documented in this encounter Care Teams Wedding Planning Internship Relationship Specialty Start Date End Date DormanSaima patelCHRISTI [address] [address] PCP - General Nurse Practitioner 12/26/21 documented as of this encounter
--- OUTSIDE RECORDS SUMMARY | 2024-10-30 08:46 | XMS_ITS | Encounter Summary ---
Author Organization [employer] ([place], [place], [place], [place]) Address [address] [place] [address] Care Team Providers Care Android Architect Name Role Phone Yessica Dorman APRN Primary Care Provider Encounter Details Date Type Department Care Team (Late st Contact Info) Description 05/14/2021 Transcribed Document [facility] Neurology - [address] [facility] [address] [place] [address] Rosalee Zheng MD [facility] [place] [address] [place] [address] Social History Tobacco Use Types Packs/Day Years [...] Date Juventino rded Speak language other than Guyanese at home Not on file 03/18/2023 Want [...] already change her home pain medication to [place] instead of Percocet. on 05/15/21, post op day 2 ,Patient doing much better today. Still on 2 L of oxygen via nasal cannula but is much more alert. We did switch her pain medication around. She is no longer on oxycodone or Dilaudid. We did also give her [place] to go home with instead of Percocet. [...] ROSALEE ZHENG - 09:15 AM ROSALEE ZHENG MD-[facility] - 02:00 PM Discharge Medications (20) Active buPROPion 150 mg, Oral, Daily cyclobenzaprine 10 mg, PRN, Oral, TID dilTIAZem 240 mg, Oral, Daily DULoxetine 30 mg, Oral, BID Dupixent 200 mg, SubCutaneous, [id number] Lasix 40 mg, Oral, Daily levocetirizine 5 mg, Oral, Daily losartan 50 mg, Oral, Daily Lunesta 2 mg, Oral, At Bedtime Lyrica 200 mg, Oral, BID meloxicam 15 mg, Oral, Daily Milk Thistle oral capsule 1 Cap, Oral, Daily montelukast 10 mg, Oral, Daily [place] 7.5 mg-325 mg oral tablet 1 Tab, [...] on filedocumented in this encounter Care Teams Android Architect Relationship Specialty Start Date End Date Yessica Dorman, CHRISTI [address] [phone] PCP - General Nurse Practitioner 12/26/21 documented as of this encounter
--- OUTSIDE RECORDS SUMMARY | 2024-10-30 08:46 | XMS_ITS | Encounter Summary ---
Author Organization [employer] ([place], [place], [place], [place]) Address [address] [place] [address] Care Team Providers Care Dental Instrument Maker Name Role Phone Saima Dorman APRN Primary Care Provider Encounter Details Date Type Department Care Team (Late st Contact Info) Description 05/14/2021 Transcribed Document [facility] [place] [address] [place] [address] ProviderKarena MD [address] [place] [address] Social History Tobacco Use Types [...] Date Juventino rded Speak language other than Cambodian at home Not on file 03/18/2023 Want [...] [facility] Conversion Marriage Counselor Minister Cerner at 06/16/2022 11:00 AM CDT documented in this encounter Plan of Treatment Not on file documented as of this encounter Visit Diagnoses Not on filedocumented in this encounter Care Teams Dental Instrument Maker Relationship Specialty Start Date End Date Saima Dorman, CHRISTI [address] [place] [address] PCP - General Nurse Practitioner 12/26/21 documented as of this encounter
--- OUTSIDE RECORDS SUMMARY | 2024-10-30 08:47 | XMS_ITS | Encounter Summary ---
Author Organization [employer] ([place], [place], [place], [place]) Address [address] [place] [address] Care Team Providers Care Manager Community Outreach Name Role Phone Saima Dorman APRN Primary Care Provider Encounter Details Date Type Department Care Team (Late st Contact Info) Description 05/13/2021 Transcribed Document [facility] [place] Family Medicine [address] [place] [address] ProviderKarena MD [address] [place] [address] Social History Tobacco Use Types [...] Date Juventino rded Speak language other than Kazakh at home Not on file 03/18/2023 Want [...] Historical Provider, - 05/13/2021 9:09 AM CDT [facility] Main OR IntraOp Summary Primary Physician: ROSALEE ZHENG MD-SNU Finalized Date/Time: 05/14/21 12:30:38 Pt. Name: MORAIMA LOYA /Sex: 1965 Female Med Rec #: [id number] Physician: ROSALEE ZHENG MD-SNU Financial #: [id number] Pt. Type: I Room/Bed: [facility] Admit/Disch: 05/13/21 06:34:00 - Institution: [facility] IntraOp Case Attendance Entry 1 Entry 2 Entry 3 Case Attendee ROSALEE ZHENG Gordon, Mark, CRNA OTHER, ATTENDEE #1 JEB Role Performed Surgeon/Proceduralist, DIGITAL PHOTOGRAPHIC PRINTER/Nurse District Service Manager Student First Time In 05/13/21 08:24:00 05/13/21 [...] Moore, Kimberly A, Leticia Hinkle MD-ANS Diagnostic Sales Account Manager Role Performed Anesthesiologist of [facility], [facility] Track Grinder Operator Record Time In 05/13/21 08:24:00 05/13/21 08:24:00 [...] LONG, ST AMIRA Role Performed Vendor Physician catalog library assistant Scrub, First Time In 05/13/21 08:24:00 05/13/21 08:24:00 05/13/21 08:24:00 Time Out 05/13/21 10:59:00 05/13/21 10:59:00 05/13/21 10:59:00 Procedure MIS Posterior Fusion CT MIS Posterior Fusion CT MIS Posterior Fusion CT Guided Guided Guided Other Attendee MIKE RUDD Superficial Wound Closed By: Last Modified By: Chula Chamberlain Rn Moore, Kimberly A, Rn Moore, Kimberly A, Rn 05/13/21 11:00:00 05/13/21 11:00:00 05/13/21 11:00:00 [facility] IntraOp Case Attendance Audit 05/13/21 11:00:00 Class C Truck Driver: [id number] Modifier: [id number] 1 <+> Time Out 1 <*> Procedure [...] MIS Posterior Fusion CT Guided 05/13/21 09:37:28 Class C Truck Driver: [id number] Modifier: [id number] <+> 1 Procedure 2 <*> Procedure MIS [...] MIS Posterior Fusion CT Guided 05/13/21 09:25:08 Class C Truck Driver: [id number] Modifier: [id number] <+> Time In 2 <*> Procedure [...] <+> 9 Role Performed <+> 9 Procedure [facility] IntraOp Case Times Entry 1 Patient In Room Time 05/13/21 08:24:00 Out Room Time 05/13/21 10:59:00 Anesthesia Start Time 05/13/21 08:24:00 Stop Time 05/13/21 10:59:00 Surgery / Procedure Times Start Time 05/13/21 09:09:00 Stop Time 05/13/21 10:44:00 Last Modified By: Chula Chamberlain Rn 05/13/21 10:59:58 [facility] IntraOp Case Times Audit 05/13/21 10:59:58 Class C Truck Driver: [id number] Modifier: [id number] <+> 1 Out Room Time <+> 1 Stop Time 05/13/21 10:44:33 Class C Truck Driver: [id number] Modifier: [id number] <+> 1 Stop Time [facility] IntraOp Cautery Entry 1 Entry 2 ESU Identification Cautery Type Monopolar ESU BiPolar ESU Cautery Type Comments ID Number [id number] ID Type Hospital Number Hospital Number Cautery [...] Kimberly A, Rn 05/13/21 09:24:33 05/13/21 09:32:57 [facility] IntraOp Cautery Audit 05/13/21 09:32:57 Class C Truck Driver: [id number] Modifier: [id number] <+> 2 Cautery Type <+> 2 Coag Setting <+> 2 Cut Setting <+> 2 ID Number <+> 2 ID Type [facility] IntraOp Communication Entry 1 Communication To Family/Significant other Comment START Communication By Chula Chamberlain Rn Date and Time 05/13/21 09:14:00 Last Modified By: Chula Chamberlain Rn 05/13/21 09:24:47 [facility] IntraOp Counts Verification Entry 1 Procedure MIS Posterior Fusion CT Guided Count Info Count Type Sponge, Sharps, Miscellaneous Counts Verification Baseline/pre-procedure Sequence Count Results Not Applicable Counts Performed By Count Performed By DEV ADLER ST (Scrub) Count Performed By Chula Chamberlain Rn (RN) Last Modified By: Chula Chamberlain Rn 05/13/21 09:25:18 [facility] IntraOp Counts Verification Audit 05/13/21 09:25:18 Class C Truck Driver: [id number] Modifier: [id number] 1 <*> Procedure MIS Posterior Fusion CT Guided 1 <+> Count Performed By (Scrub) [facility] IntraOp Counts Final Entry 1 Procedure MIS Posterior Fusion CT Guided Final Count Info Count Type Sponge, Sharps, Miscellaneous Counts Verification Skin Closure/end of Sequence procedure Count Results Correct, surgeon notified Counts Performed By Count Performed By DEV ADLER ST (Scrub) Count Performed By Chula Chamberlain Rn (RN) Last Modified By: Chula Chamberlain Rn 05/13/21 10:44:17 [facility] IntraOp Counts Final Audit 05/13/21 10:44:17 Class C Truck Driver: [id number] Modifier: [id number] 1 <*> Procedure MIS Posterior Fusion CT Guided 1 <+> Count Performed By (Scrub) 1 <+> Count Performed By (RN) [facility] IntraOp Delays Entry 1 Delay Reason Surgeon late - no reason Duration 24 Minute(s) Last Modified By: Chula Chamberlain Rn 05/13/21 09:25:41 [facility] IntraOp Departure from OR Entry 1 [...] Modified By: Chula Chamberlain Rn 05/13/21 09:27:31 [facility] IntraOp Dressing and Packing Entry 1 Type Dressing Location BACK Applied By KARIN OLIVER PA Other Comments COVERDERM, NEOSPORIN Last Modified By: Chula Chamberlain Rn 05/13/21 09:27:52 [facility] IntraOp Fire Risk Assessment Entry 1 [...] Modified By: Chula Chamberlain Rn 05/13/21 09:28:37 [facility] IntraOp General Case Rotary Surface Grinder 1 Case Information OR OR [facility] Case Level 1 Room Verified Yes Wound Class 1 - Clean Specialty Neurosurgery Anesthesia Type General ASA Class 3 Diagnosis Preop Diagnosis LUMBAR SPONDYLOLISTHESIS Postop Same As Preop No Postop Diagnosis SEE MD POST OP NOTES Wound Class Definitions Last Modified By: Chula Chamberlain Rn 05/13/21 09:30:48 [facility] IntraOp Implant Log Entry 1 Entry 2 Entry 3 Type Tissue Implant Tissue Implant Implant (Synthetic) (Biologic) (Biologic) Implant Log Implant Type Hardware Tissue Implant Type Other Other Implant BONE MATRX VIVIGEN BONE VIVIGEN FORMABLE CAGE T/PLIF [id number] [facility][id number] Description Implant Quantity 1 1 1 Implant Site BACK BACK BACK Implant Identification Model Number Implant Identification Serial Number Implant [id number] Identification Lot Number Implant Lifenet:Lifenet Lifenet:Lifenet J&J:Depuy:Depuy Spine Identification Transplant Srv Transplant Srv Insole And Heel Stiffener Name: Implant [id number] Identification Catalog Number Implant Size Implant Has an Yes Expiration Date Implant Expiration 04/02/22 04/22/22 05/29/25 Date Wasted Radioactive Material Time Implanted Tissue Implant Continue for Tissue Implant Documentation Tissue [id number] Identification Number Graft Prep Per Yes Yes Insole And Heel Stiffener Instructions: Tissue Preparation Thawed Thawed Method: Reconstitution Solution: Reconstitution Solution Lot Number Reconstitution Solution Expiration Date: Thawing Solution SODIUM CHLORIDE 0.9% SODIUM CHLORIDE 0.9% Thawing Solution [id number] Lot Number Thawing Solution 05/31/23 05/31/23 Expiration Date Preparation Materials, Other Preparation Materials, Other Lot Number Preparation Materials, Other Expiration Date Tissue ROSALEE ZHENG, ROSALEE ZHENG, Prepared/Processed -SNU -SNU By Insole And Heel Stiffener Yes Yes Paperwork Completed Implant Type Comment VIVIGEN VIVIGEN Last Modified By: Chula Chamberlain Rn Moore, Kimberly A, Rn Moore, Kimberly A, Rn 05/13/21 10:01:33 05/13/21 10:01:33 05/13/21 10:01:33 Entry 4 Entry 5 Entry 6 Type Implant (Synthetic) Implant (Synthetic) Implant (Synthetic) Implant Log Implant Type Bone Cement Bone Cement Hardware Tissue Implant Type Implant CEMENT SPINAL [id number] (HIGH VELOSITY PRM-SCREW 6X45MM VIPER Identification CONFIDENCE-[id number] SPINAL CEMENT) PRIM POLYAX EXTEND TAB Description FEN BE TI F/5.5MM-[id number] Implant Quantity 1 1 4 Implant Site BACK BACK BACK Implant Identification Model Number Implant Identification Serial Number Implant [id number] Identification Lot Number Implant J&J:Depuy:Depuy Spine DEPUY SPINE Identification Insole And Heel Stiffener Name: Implant [id number] Identification Catalog Number Implant Size Implant Has an Yes Yes No Expiration Date Implant Expiration 12/29/22 03/31/23 Date Wasted Radioactive Material Time Implanted Tissue Implant Continue for Tissue Implant Documentation Tissue Identification Number Graft Prep Per Insole And Heel Stiffener Instructions: Tissue Preparation Method: Reconstitution Solution: Reconstitution Solution Lot Number Reconstitution Solution Expiration Date: Thawing Solution Thawing Solution Lot Number Thawing Solution Expiration Date Preparation Materials, Other Preparation Materials, Other Lot Number Preparation Materials, Other Expiration Date Tissue Prepared/Processed By Insole And Heel Stiffener Paperwork Completed Implant Type Comment Last Modified By: Chula Chamberlain Rn Moore, Kimberly A, Rn Moore, Kimberly A, Rn 05/13/21 10:52:45 05/13/21 10:52:45 05/13/21 10:52:45 Entry 7 Entry 8 Entry 9 Type Implant (Synthetic) Implant (Synthetic) Implant (Synthetic) Implant Log Implant Type Hardware Hardware Hardware Tissue Implant Type Implant MIS CIARRA PLY SCRW SET CIARRA SURG FENESTRATE CHRISTOPHE SPINE VIPER Identification [id number] [facility]-[id number] Description Implant Quantity 4 1 2 Implant Site BACK BACK BACK Implant Identification Model Number Implant Identification Serial Number Implant Identification Lot Number Implant J&J:Depuy:Depuy Spine J&J:Depuy J&J:Depuy:Depuy Spine Identification Insole And Heel Stiffener Name: Implant [id number] Identification Catalog Number Implant Size Implant Has an No No No Expiration Date Implant Expiration Date Wasted Radioactive Material Time Implanted Tissue Implant Continue for Tissue Implant Documentation Tissue Identification Number Graft Prep Per Insole And Heel Stiffener Instructions: Tissue Preparation Method: Reconstitution Solution: Reconstitution Solution Lot Number Reconstitution Solution Expiration Date: Thawing Solution Thawing Solution Lot Number Thawing Solution Expiration Date Preparation Materials, Other Preparation Materials, Other Lot Number Preparation Materials, Other Expiration Date Tissue Prepared/Processed By Insole And Heel Stiffener Paperwork Completed Implant Type Comment Last Modified By: Chula Chamberlain Rn Moore, Kimberly A, Rn Moore, Kimberly A, Rn 05/13/21 10:52:45 05/13/21 10:52:45 05/13/21 10:52:45 [facility] IntraOp Implant Log Audit 05/13/21 10:52:45 Class C Truck Driver: [id number] Modifier: [id number] <+> 4 Implant Identification Description <+> 4 Implant Identification Lot Number <+> 4 Implant Identification Insole And Heel Stiffener Name: <+> 4 Implant Expiration Date <+> [...] Implant Identification Description <+> 6 Implant Identification Insole And Heel Stiffener Name: <+> 6 Implant Site <+> 6 Implant Quantity <+> 6 Implant Identification Catalog Number <+> 6 Implant Type <+> 6 Implant Has an Expiration Date <+> 6 Type <+> 7 Implant Identification Description <+> 7 Implant Identification Insole And Heel Stiffener Name: <+> 7 Implant Site <+> 7 Implant Quantity <+> 7 Implant Identification Catalog Number <+> 7 Implant Type <+> 7 Implant Has an Expiration Date <+> 7 Type <+> 8 Implant Identification Description <+> 8 Implant Identification Insole And Heel Stiffener Name: <+> 8 Implant Site <+> 8 Implant Quantity <+> 8 Implant Identification Catalog Number <+> 8 Implant Type <+> 8 Implant Has an Expiration Date <+> 8 Type <+> 9 Implant Identification Description <+> 9 Implant Identification Insole And Heel Stiffener Name: <+> 9 Implant Site <+> 9 Implant Quantity <+> 9 Implant Identification Catalog Number <+> 9 Implant Type <+> 9 Implant Has an Expiration Date <+> 9 Type [facility] IntraOp Intraoperative Assessment Entry 1 Handoff [...] Modified By: Chula Chamberlain Rn 05/13/21 09:31:10 [facility] IntraOp Intraoperative Equipment Entry 1 Type Equipment Equipment Equipment Forrest Suction System ID Number [id number] Setting ON Intraop Monitoring Antiembolic Devices Antiembolic Devices Sequential compression device, knee high Antiembolic Device Bilateral Location Antiembolic Device 90535 ID Number Antiembolic Device SCDS ON AND WORKING Setting PRIOR TO INDUCTION OF ANESTHESIA Scopes Photo/Video Documentation Last Modified By: Chula Chamberlain Rn 05/13/21 09:32:40 [facility] IntraOp Medication Admin Entry 1 Entry 2 Entry 3 Medication/Irrigant lidocaine 1% w/ Neosporin 15Gm ointment SPNG SURGFOAM epinephrine 1:100,000 - [id number] 30ml vial - [id number] Combo Med List Time Administered Route of [...] DR ZHENG INJECTION FROM topical powder - [id number] PHARMACY [id number] Combo Med List Time Administered Route of TO FIELD TO FIELD TO STERILE FIELD Administration Dose Dose Unit of Measure Volume Administered By ROSALEE ZHENG TUTT, MATTHEW PAIGE, TUTT, MATTHEW PAIGE, MD-SNU MD-SNU MD-SNU Procedure Irrigation Irrigant Volume In Irrigant Volume Out Last Modified By: Chula Chamberlain Rn Moore, Kimberly A, Rn Moore, Kimberly A, Rn 05/13/21 09:33:58 05/13/21 09:33:58 05/13/21 09:33:58 [facility] IntraOp Patient Positioning Entry 1 Procedure [...] Positioned By ROSALEE ZHENG MD-SNU, Kenny Murphy, DIGITAL PHOTOGRAPHIC PRINTER, OTHER, ATTENDEE #1, Chula Chamberlain, Rn, KARIN OLIVER PA Position Verified Positioning Yes Verified by Anesthesia Positioning Yes Verified by Surgeon Last Modified By: Chula Chamberlain Rn 05/13/21 09:35:50 [facility] IntraOp Sign In Entry 1 Patient, [...] Modified By: Chula Chamberlain Rn 05/13/21 09:36:21 [facility] IntraOp Sign Out Entry 1 RN [...] Modified By: Chula Chamberlain Rn 05/13/21 10:44:25 [facility] IntraOp Sign Out Audit 05/13/21 10:44:25 Class C Truck Driver: [id number] Modifier: [id number] <+> 1 RN Sign Out Signature Date/Time [facility] IntraOp Skin Prep Entry 1 Entry [...] Kimberly A, Rn 05/13/21 09:37:17 05/13/21 09:37:17 [facility] IntraOp Surgical Procedures Entry 1 Procedure MIS Posterior [address] CT Guided Additional MIS L4-5 TLIF WITH ZIEHM Procedure Description Primary Procedure Yes Primary Surgeon ROSALEE ZHENG MD-SNU Start 05/13/21 09:09:00 Stop 05/13/21 10:44:00 Anesthesia Type General Specialty Neurosurgery Wound Class 1 - Clean Last Modified By: Chula Chamberlain Rn 05/13/21 10:44:35 [facility] IntraOp Surgical Procedures Audit 05/13/21 10:44:35 Class C Truck Driver: [id number] Modifier: [id number] <+> 1 Stop [facility] IntraOp Temp Regulation Devices Entry 1 Temp Regulation Temperature THERMOREGULATION Regulation Comment MEASURES MONITIORED AND ADJUSTED BY ANESTHESIA Last Modified By: Chula Chamberlain Rn 05/13/21 09:37:46 [facility] IntraOP Time Out Entry 1 Procedure [...] Modified By: Chula Chamberlain Rn 05/13/21 09:38:25 [facility] IntraOp X-Ray and Images Entry 1 X-Ray/Imaging Type Fluoroscopy Fluoroscopy Type C-Arm Site OPERATIVE SITE Cylinder Grinder Name Leticia Ramires, Diagnostic Sales Account Manager Protective Devices No Used X-Ray and Imaging ZIEHM Comment Last Modified By: Chula Chamberlain Rn 05/13/21 09:39:05 Case Comments <None> Finalized By: IRINA BERNARD Document Signatures Signed By: Chula Chamberlain Rn 05/13/21 11:00 IRINA BERNARD 05/14/21 12:30 Unfinalized History Date/Time Username Reason for Unfinalizing Freetext Reason for Unfinalizing 05/14/21 12:26 BRANDYN Correct Billing Electronically signed by [facility] Conversion Cleaner And Preparer Cerner at 06/16/2022 10:50 AM CDT documented in this encounter Plan of Treatment Not on file documented as of this encounter Visit Diagnoses Not on filedocumented in this encounter Care Teams Manager Community Outreach Relationship Specialty Start Date End Date Saima Dorman, PROJECT MGR [address] [id number] PCP - General Nurse Practitioner 12/26/21 documented as of this encounter
--- OUTSIDE RECORDS SUMMARY | 2024-10-30 08:47 | XMS_ITS | Encounter Summary ---
Author Organization [employer] ([place], [place], [place], [place]) Address [address] [place] [address] Care Team Providers Care Telesales Advisor Name Role Phone Saima Dorman APRN Primary Care Provider [phone] Encounter Details Date Type Department Care Team (Late st Contact Info) Description 05/13/2021 Transcribed Document [facility] [place] Family Medicine [address] [place] [address] ProviderKarena MD [address] [place] [address] Social History Tobacco Use Types [...] on file 03/18 Educational Attainment Answer Date Juvnetino rded Speak language other than Swedish at home Not on file 03/18/2023 Want [...] On: 05/13/2021 12:18 EDT by Ivan Boyer Stock Shaper Cert Lead Meds to Bed Enrollment Patient Enrollment Decision: : No/do not enroll in meds to bed program Reason for Declining Meds to Bed Program: : Prefer to use home pharmacy Ivan Boyer Stock Shaper Cert Lead - 05/14/2021 10:16 EDT documented in this encounter Plan of Treatment Not on file documented as of this encounter Visit Diagnoses Not on filedocumented in this encounter Care Teams Telesales Advisor Relationship Specialty Start Date End Date Saima Dorman, MEDICAL SCIENTIFIC LIAISON [address] [phone] PCP - General Nurse Practitioner 12/26/21 documented as of this encounter
--- OUTSIDE RECORDS SUMMARY | 2024-10-30 08:47 | XMS_ITS | Encounter Summary ---
Author Organization [employer] ([place], [place], [place], [place]) Address [address] [place] [address] Care Team Providers Care Packaging Designer Name Role Phone Saima Dorman APRN Primary Care Provider Encounter Details Date Type Department Care Team (Late st Contact Info) Description 05/14/2021 Transcribed Document [facility] [place] Family Medicine [address] [place] [address] ProviderKarena MD [address] [place] [address] Social History Tobacco Use Types [...] Date Juventino rded Speak language other than [place] at home Not on file 03/18/2023 Want [...] on filedocumented in this encounter Care Teams Packaging Designer Relationship Specialty Start Date End Date Saima Dorman, CHRISTI [address] [phone] PCP - General Nurse Practitioner 12/26/21 documented as of this encounter
--- OUTSIDE RECORDS SUMMARY | 2024-10-30 08:47 | XMS_ITS | Encounter Summary ---
Author Organization [employer] ([place], [place], [place], [place]) Address [address] [place] [address] Care Team Providers Care Talend Etl Developer Name Role Phone Saima Dorman APRN Primary Care Provider Encounter Details Date Type Department Care Team (Late st Contact Info) Description 05/13/2021 Transcribed Document [facility] Neurology - [address] [facility] [address] [place] [address] Alejandro Bledsoe MD [facility] [address] [place] [address] Social History Tobacco Use Types Packs/Day Years [...] BID, 0 Refill(s) Dupixent: 200 mg, SubCutaneous, L8Cogxf, 0 Refill(s) Lasix: 40 mg, Oral, Daily, [...] mg, Oral, BID Dupixent 200 mg, SubCutaneous, O7Shfgp Lasix 40 mg, Oral, Daily levocetirizine 5 [...] All Problems Fatty liver / SNOMED CT 874318749 / Confirmed Sleep apnea / SNOMED CT 113659394 / Confirmed Pancreatitis / SNOMED CT 512294918 / Confirmed Hyperlipidemia / SNOMED CT 61117526 / Confirmed History of obstructive sleep apnea / IMO 87826412 / Confirmed High blood pressure / SNOMED CT 34962530 / Confirmed GERD - Gastro-esophageal reflux disease / SNOMED CT 5570659498 / Confirmed Fibromyalgia / SNOMED CT 881301195 / Confirmed Chronic constipation / SNOMED CT 765439921 / Confirmed Chronic CHF / SNOMED CT 633700579 / Confirmed Back pain / SNOMED CT 253540128 / Confirmed Asthma / SNOMED CT 215363600 / Confirmed Arthritis / SNOMED CT 0800646 / Confirmed, Active Problems (13) Arthritis Asthma [...] replacement. LAPS W/VAGINAL HYSTERECTOMY > 250 GRAMS (23270). septal plasty. cholecysectomy. bladder sling. cortisone back [...] EDT Height Source Chart Height Entry Format [place] Height/Length, SPANISH (ft) 5 ft Height/Length SPANISH 2 Inch CLINICALHEIGHT 157.48 cm Leroy Body Weight 50 kg Weight Source Standing scale Weight Entry Format [place] Weight Qatari lb 241 lb CLINICALWEIGHT 109.55 kg Body [...] uses cane occasionally . Integumentary: Warm, Dry, [place]. Neurologic: Alert, Oriented. Psychiatric: Cooperative, Appropriate mood [...] on filedocumented in this encounter Care Teams Talend Etl Developer Relationship Specialty Start Date End Date Saima Dorman, SPARE HAND [address] [phone] PCP - General Nurse Practitioner 12/26/21 documented as of this encounter
--- OUTSIDE RECORDS SUMMARY | 2024-10-30 08:47 | XMS_ITS | Encounter Summary ---
Author Organization [employer] ([place], [place], [place], [place]) Address [address] [place] [address] Care Team Providers Care Cigar Bander Hand Name Role Phone Saima Dorman APRN Primary Care Provider Encounter Details Date Type Department Care Team (Late st Contact Info) Description 05/12/2021 Transcribed Document [facility] [place] [address] [place] [address] ProviderKarena MD [address] [place] [address] Social History Tobacco Use Types [...] Date Juventino rded Speak language other than Rwandan at [...] Source : Chart Height Entry Format : [place] Height, Feet : 5 ft(Converted to: 152 cm, 60 Inch) Height, Inches : 2 Inch(Converted to: 0 ft 2 Inch, 5.08 cm) Clinical Height : 157.48 cm Weight Source : Standing scale Weight Entry Format : [place] Clinical Dosing Weight : 109.55 kg Weight, Pounds : 241 lb Body Surface Area (BSA) : 2.07 m2 Body Mass Index : 44.2 kg/m2 (>HHI) [place] Body Weight : 50 kg ELISA GRAY RN - 05/12/2021 12:14 EDT Health Histories Smoking Status : Never (less than 100 in lifetime; none in last 30 days) Smokeless Tobacco Status : Never Implant/Device Type, Backup Administrator and Model : bilateral knees ELISA GRAY [...] ELISA GRAY RN - 05/12/2021 12:14 EDT [place] Suicide Severity Rating Scale (C-SSRS) CSSRS Past [...] Obtained From : Patient Primary Language : [place] Communication Barrier : None Hydraulic Chair Assembler Needed : No ELISA GRAY RN - [...] - 05/12/2021 12:14 EDT Electronically signed by Kta[facility] Conversion Office Chair Assembler Cerner at 06/16/2022 10:50 AM CDT documented in this encounter Plan of Treatment Not on file documented as of this encounter Visit Diagnoses Not on filedocumented in this encounter Care Teams Cigar Bander Hand Relationship Specialty Start Date End Date Saima Dorman APRN [address] [phone] PCP - General Nurse Practitioner 12/26/21 documented as of this encounter
--- OUTSIDE RECORDS SUMMARY | 2024-10-30 08:47 | XMS_ITS | Encounter Summary ---
Author Organization [employer] ([place], [place], [place], [place]) Address [address] [place] [address] Care Team Providers Care Automation Software Engineer Name Role Phone Saima Dorman APRN Primary Care Provider Encounter Details Date Type Department Care Team (Late st Contact Info) Description 05/13/2021 Transcribed Document [facility] [place] [address] [place] [address] ProviderKarena MD [address] [place] [address] Social History Tobacco Use Types [...] Historical Provider, - 05/13/2021 9:09 AM CDT [facility] Main OR PACU Summary Primary Physician: ROSALEE ZHENG MD-[facility] Finalized Date/Time: 05/13/21 12:28:53 Pt. Name: MORAIMA LOYA /Sex: 1965 Female Med Rec #: [id number] Physician: ROSALEE ZHENG MD-[facility] Financial #: [id number] Pt. Type: I Room/Bed: [facility] Admit/Disch: 05/13/21 06:34:00 - Institution: [facility] Main OR PACU I Case Times Entry 1 In PACU I 05/13/21 11:03:00 Ready for PACU 05/13/21 12:25:00 Discharge Discharge from PACU 05/13/21 12:25:00 I Last Modified By: ANTONINA KUHN RN 05/13/21 12:28:43 [facility] Main OR PACU I Case Times Audit 05/13/21 12:28:43 Detective Chief: TIA Modifier: BRANDEP <+> 1 Ready for PACU Discharge <+> 1 Discharge from PACU I Finalized By: ANTONINA KUHN, RN Document Signatures Signed By: ANTONINA KUHN RN 05/13/21 12:28 Electronically signed by [facility] Conversion Wellness Program Administrator Cerner at 06/16/2022 11:13 AM CDT documented in this encounter Plan of Treatment Not on file documented as of this encounter Visit Diagnoses Not on filedocumented in this encounter Care Teams Automation Software Engineer Relationship Specialty Start Date End Date Saima Dorman, SINK CUTTER [address] [address] PCP - General Nurse Practitioner 12/26/21 documented as of this encounter
--- OUTSIDE RECORDS SUMMARY | 2024-10-30 08:47 | XMS_ITS | Encounter Summary ---
Author Organization Healthcare Address [address] [place] [address] Care Team Providers Care Circus Train Supervisor Name Role Phone DandyAnnieyair Persaud APRN Primary Care Provider [phone] Reason for Referral * Consultation (Routine) - Closed Specialty Diagnoses / Procedures Referred By Jordan watson Referred To Contact Gastroenterology Diagnoses Abnormal CT scan, liver Fatty liver Karolyn Ramos PA [address] [facility] [address] [place] [address] Phone: tel: fax: Referral ID Status Reason Start Date Expiration Date V isits Requested Visits Authorized [id number] Closed Specialty Services Required 01/18/2023 07/19/2024 1 1 Encounter Details Date Type Department Care Team (Late st Contact Info) Description 01/18/2023 [facility] [address] [place] [address] Karolyn Ramos PA [address] [place] [address] scan, liver (Primary [...] as of this encounter Plan of Treatment Scheduled Referrals Name Type Priority Associated Diagnoses [...] documented as of this encounter Care Teams Circus Train Supervisor Relationship Specialty Start Date End Date Saima Dorman APRN [address] [place] [address] PCP - General 07/12/20 documented as of this encounter
--- OUTSIDE RECORDS SUMMARY | 2024-10-30 08:47 | XMS_ITS | Encounter Summary ---
Author Organization [employer] ([place], [place], [place], [place]) Address [address] [place] [address] Care Team Providers Care Baseball Umpire For Little League Name Role Phone Saima Dorman APRN Primary Care Provider Encounter Details Date Type Department Care Team (Late st Contact Info) Description 05/15/2021 Transcribed Document [facility] [place] Family Medicine [address] [place] [address] ProviderKarena MD [address] [place] [address] Social History Tobacco Use Types [...] on filedocumented in this encounter Care Teams Baseball Umpire For Little League Relationship Specialty Start Date End Date Saima Dorman APRN [address] [address] PCP - General Nurse Practitioner 12/26/21 documented as of this encounter
--- OUTSIDE RECORDS SUMMARY | 2024-10-30 08:47 | XMS_ITS | Encounter Summary ---
Author Organization [employer] ([place], [place], [place], [place]) Address [address] [place] [address] Care Team Providers Care Foundry Engineer Name Role Phone Yessica Dorman APRN Primary Care Provider Encounter Details Date Type Department Care Team (Late st Contact Info) Description 05/15/2021 Transcribed Document [facility] [place] [address] [place] [address] ProviderKarena MD [address] [place] [address] Social History Tobacco Use Types [...] Ashby MD - 05/15/2021 2:38 PM CDT [facility] [address] [place], [place] [id number] HEYDI LOYAA Yoel :1965 Visit Time:05/13/2021 Your Visit Summary Your Care Team Admitting Physician - ROSALEE ZHENG MD-[facility] Attending Physician - ROSALEE ZHENG MD-[facility] Primary Care Physician - YESSICA DORMAN APRN-FAM Referring Physician - CECY HERRREA Your Diagnosis Spondylolisthesis of lumbar region Lumbar [...] lateral lumbar x-rays 0815 for Xrays at [facility] Where: [address] [facility] [address] [place] [address]- Business (1) Follow Up with ROSALEE ZHENG MD-SNU When 05/26/2021 02:00 PM EDT Comments Staple Removal Where: [address] [facility] [place] [address]- Medications What How Much When Instructions Next Dose acetaminophen-hydrocodone ([place] 7.5 mg-325 mg oral tablet) 1 Tablet(s) Oral Every 4 Hours as needed for as needed for pain Pickup at [facility] 4:16 pm today budesonide-formoterol (Symbicort 160 mcg-4.5 [...] (Spiriva) Inhalation Every Day tomorrow Pharmacy Information [facility]: [address] [facility] [address] [place], [place] [id number] [phone] Take your medications faithfully. Do NOT skip [...] provider or a person from your medical records coordinator company will show you how to use [...] it and its top with a disinfectant sewer cleaner. ? Air-dry it. ? Make sure [...] aerosol sprays. ? Rubbing alcohol. ? Hand assistant food service director. ??? When you go to a restaurant [...] move around. Follow instructions from your medical records coordinator company about how to safely secure your [...] from your health care provider and medical records coordinator company before you travel. General safety tips [...] tubing. Where to find more information ??? [place] [employer]: www.lung.org/oxygen Contact a health care [...] provider or a person from your medical records coordinator company will show you how to use [...] provider. Document Revised: 04/18/2020 Document Reviewed: 02/13/2020 [employer] Patient Education ?? 2020 YOHO. Lumbar Spine Discharge Information What to expect [...] any lotions or ointments to your incision -[place] will be removed in office -Steri-strips or [...] and shin droe KOE done) Hycet, Lorcet, [place], Verdrocet, Vicodin, Xodol, Zamicet What is the [...] may report side effects to FDA at 8-690-NQD-1714. What other drugs will affect acetaminophen and [...] affect acetaminophen and hydrocodone, including prescription and uxra-auu-yksjfbn medicines, vitamins, and herbal products. Not all [...] to ensure that the information provided by [employer]. ('[employer]') is accurate, up-to-date, and complete, but no guarantee is made to that effect. Drug information contained herein may be time sensitive. [employer] information has been compiled for use by healthcare practitioners and consumers in the [place] and therefore [employer] does not warrant that uses outside of the [place] are appropriate, unless specifically indicated otherwise. [employer] drug information does not endorse drugs, diagnose patients or recommend therapy. [employer] drug information is an informational resource designed [...] effective or appropriate for any given patient. [employer] does not assume any responsibility for any aspect of healthcare administered with the aid of information [employer] provides. The information contained herein is not intended to cover all possible uses, directions, precautions, warnings, drug interactions, allergic reactions, or adverse effects. If you have questions about the drugs you are taking, check with your doctor, nurse or pharmacist. Copyright 4993-0793 [employer]. Version: 16.03. Revision Date: 04/02/2020. Emergency Awareness [...] Assistance with quitting is available by contacting 4-380-QLNLNOW. This is a free resource providing counseling, support, and referral. Or you may contact your personal physician. [place] Suicide Prevention Lifeline: The National Suicide Prevention [...] range between ( 0.0 and 7.0 ) [place] #: 0.97 K/uL -- Normal range between ( 0.16 and 1.00 ) [place]os #: 0.09 x10(3)/uL -- Normal range between ( 0.00 and 0.80 ) [place] %: 9.0 % -- Normal range between [...] ) Urine Bilirubin Dipstick: Negative Urine Specific [place]: 1.021 -- Normal range between ( 1.005 [...] was given the opportunity to ask questions. Patient/Photographer Motion Picture Name: Patient/Photographer Motion Picture Signature: Relationship to Patient: Clinician/Hospital Photographer Motion Picture Signature: Date: Electronically signed by Luis Angel Wilson Conversion Patient Service Representative Teresa at 06/16/2022 10:56 AM CDT documented in this encounter Plan of Treatment Not on file documented as of this encounter Visit Diagnoses Not on filedocumented in this encounter Care Teams Foundry Engineer Relationship Specialty Start Date End Date Yessica Dorman APRN [address] [address] PCP - General Nurse Practitioner 12/26/21 documented as of this encounter
--- OUTSIDE RECORDS SUMMARY | 2024-10-30 08:47 | XMS_ITS | Encounter Summary ---
Author Organization [employer] ([place], [place], [place], [place]) Address [address] [place] [address] Care Team Providers Care Buyer Assistant Name Role Phone Saima Dorman APRN Primary Care Provider Encounter Details Date Type Department Care Team (Late st Contact Info) Description 05/15/2021 Transcribed Document [facility] [place] Family Medicine [address] [place] [address] ProviderKarena MD [address] [place] [address] Social History Tobacco Use Types [...] Date Juventino rded Speak language other than Lithuanian at home Not on file 03/18/2023 Want [...] on filedocumented in this encounter Care Teams Buyer Assistant Relationship Specialty Start Date End Date Saima Dorman, CHRISTI [address] [place] [address] PCP - General Nurse Practitioner 12/26/21 documented as of this encounter
--- OUTSIDE RECORDS SUMMARY | 2024-10-30 08:47 | XMS_ITS | Encounter Summary ---
Author Organization [employer] ([place], [place], [place], [place]) Address [address] [place] [address] Care Team Providers Care Dedicated Truck Driver Name Role Phone Saima Dorman APRN Primary Care Provider Encounter Details Date Type Department Care Team (Late st Contact Info) Description 05/12/2021 Transcribed Document [facility] [place] [address] [place] [address] ProviderKarena MD [address] [place] [address] Social History Tobacco Use Types [...] forms. No nutrition dx at this time. shampoo technician to rescreen in 7-10 days. Marissa Tan Diet Technician - 05/15/2021 11:38 EDT Electronically signed by Katie [facility] Conversion Supervisor Dry Cleaning Cerner at 06/16/2022 11:11 AM CDT documented in this encounter Plan of Treatment Not on file documented as of this encounter Visit Diagnoses Not on filedocumented in this encounter Care Teams Dedicated Truck Driver Relationship Specialty Start Date End Date Saima Dorman, BEEF PUSHER [address] [address] PCP - General Nurse Practitioner 12/26/21 documented as of this encounter
--- OUTSIDE RECORDS SUMMARY | 2024-10-30 08:47 | XMS_ITS | Encounter Summary ---
Author Organization [employer] ([place], [place], [place], [place]) Address [address] [place] [address] Care Team Providers Care Client Success Specialist Name Role Phone Saima Dorman APRN Primary Care Provider Encounter Details Date Type Department Care Team (Late st Contact Info) Description 05/15/2021 Transcribed Document [facility] [place] Family Medicine [address] [place] [address] ProviderKarena MD [address] [place] [address] Social History Tobacco Use Types [...] filedocumented in this encounter Care Teams Client Success Specialist Relationship Specialty Start Date End Date Saima Dorman, CHRISTI [address] [id number] PCP - General Nurse Practitioner 12/26/21 documented as of this encounter
--- OUTSIDE RECORDS SUMMARY | 2024-10-30 08:47 | XMS_ITS | Encounter Summary ---
Author Organization [employer] ([place], [place]) Address [address] [place] [address] Care Team Providers Care Reexaminer Name Role Phone Saima Dorman APRN Primary Care Provider Encounter Details Date Type Department Care Team (Late st Contact Info) Description 05/15/2021 Transcribed Document [facility] [place] Family Medicine [address] [place] [address] ProviderKarena MD [address] [place] [address] Social History Tobacco Use Types [...] Date Juventino rded Speak language other than Martiniquais at home Not on file 03/18/2023 Want [...] Insurance 1 Health Plan: HU[employer]NA Policy Number: [id number] Authorization Number: [id number] Insurance 2 Health Plan: MEDICARE Policy Number: [id number] Authorization Number: Insurance Primary Name : [employer] [id number] Authorization Status-Primary : Admit approved Authorization Number-Primary : [id number] Number of Days Authorized-Primary : 0 Day(s) Authorized Service Begin Date-Primary : 05/13/2021 EDT Authorized Service End Date-Primary : 05/13/2021 EDT Authorization Comments-Primary : clinicals submitted per [employer] for c/s auth Historical Authorization Comments-Primary : Comment 1: 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
--- OUTSIDE RECORDS SUMMARY | 2024-10-30 08:47 | XMS_ITS | Encounter Summary ---
Author Organization [employer] ([place], [place], [place], [place]) Address [address] [place] [address] Care Team Providers Care Crap Game Box Person Name Role Phone Saima Dorman APRN Primary Care Provider [phone] Encounter Details Date Type Department Care Team (Late st Contact Info) Description 05/14/2021 Transcribed Document [facility] [place] [address] [place] [address] ProviderKarena MD [address] [place] [address] Social History Tobacco Use Types [...] rded Speak language other than Citizen [place] at home Not on file 03/18/2023 Want [...] on filedocumented in this encounter Care Teams Crap Game Box Person Relationship Specialty Start Date End Date Saima Dorman, CHRISTI [address] [phone] PCP - General Nurse Practitioner 12/26/21 documented as of this encounter
--- OUTSIDE RECORDS SUMMARY | 2024-10-30 08:47 | XMS_ITS | Encounter Summary ---
Author Organization [employer] ([place], [place], [place], [place]) Address [address] [place] [address] Care Team Providers Care Punch Machine Operator Name Role Phone Saima Dorman APRN Primary Care Provider Encounter Details Date Type Department Care Team (Late st Contact Info) Description 05/14/2021 Transcribed Document [facility] [place] [address] [place] [address] ProviderKarena MD [address] [place] [address] Social History Tobacco Use Types [...] Date Juventino rded Speak language other than Pakistani at home Not on file 03/18/2023 Want [...] on filedocumented in this encounter Care Teams Punch Machine Operator Relationship Specialty Start Date End Date Saima Dorman, CHRISTI [address] [phone] PCP - General Nurse Practitioner 12/26/21 documented as of this encounter
--- OUTSIDE RECORDS SUMMARY | 2024-10-30 08:47 | XMS_ITS | Encounter Summary ---
Author Organization [employer] ([place], [place], [place], [place]) Address [address] [place] [address] Care Team Providers Care Branch Library Clerk Name Role Phone Saima Dorman APRN Primary Care Provider Encounter Details Date Type Department Care Team (Late st Contact Info) Description 05/13/2021 Transcribed Document [facility] Neurology - [address] [facility] [address] [place] [address] Alejandro Bledsoe MD [facility] [address] [place] [address] Social History Tobacco Use Types Packs/Day Years [...] navigation. 4. Use of the operating microscope. TELESCOPE REPAIRER: Matteo Lee PA-C TYPE OF ANESTHESIA: GEA. [...] 3D spin was then performed with a [facility] fluoroscopic unit. Stereotactic navigation was registered and [...] LOSS: 100 mL. DRAINS: None. COMPLICATIONS: None. /[id number] MD PEDRO Abreu/AQ / MPT / MODL /[id number] CC: Dr. Jose Luis Barker documented in this encounter Plan of Treatment Not on file documented as of this encounter Visit Diagnoses Not on filedocumented in this encounter Care Teams Branch Library Clerk Relationship Specialty Start Date End Date Saima Dorman, VALIDATION ARCHITECT [address] [place] [address] PCP - General Nurse Practitioner 12/26/21 documented as of this encounter
--- OUTSIDE RECORDS SUMMARY | 2024-10-30 08:47 | XMS_ITS | Referral Summary ---
Author Organization [employer] ([place], [place], [place], [place]) Address [address] [place] [address] Care Team Providers Care Castables Worker Name Role Phone Saima Dorman APRN [...] Date Juventino rded Speak language other than Belizean at home Not on file 03/18/2023 Want [...] 09/23/2022 12:13 PM EDT Performed at: - [address] [id number] Polymerization Helper: Abner Diaz PhD, Phone: [phone] us Kayley Whitaker MD LAB BLOOD ORDERABLES Final R esult [facility] * Hepatitis C Virus Ab w/Rflx to HCV NAAT(SENDOUT) (07/03/2022 1:21 PM EDT) Hepatitis C Antibody by SENG Interp Negative Negative 07/05/2022 10:57 AM EDT [facility] Comment: Based on the anti-HCV (SENG) [...] Index 0.04 IV 07/05/2022 10:57 AM EDT [facility] Comment: Performed by [facility], [address] [place] [address] [email or web address], Carson Jay MD, PHD, Lab. Director Blood Venipuncture / Unknown 07/03/2022 1:21 PM EDT 07/03/2022 1:28 PM EDT Karolyn Ramos PA-C LAB BLOOD ORDERABLES Final Re sult [facility] [address] [place] [address], [facility] [phone] from Last 3 Months or Most Recently Relevant to Health Maintenance Insurance [employer] CHOICE PPO BLUE CROSS/BLUE SHIELD Advance Directives For more information, please contact: [phone] * Full Code (Latest Code Status on File) Date Activated Date Inactivated Comments 04/29/2022 9:21 AM 04/29/2022 1:52 PM -Attempt Resus citation if person has no pulse and is not breathing. -If no pulse or not breathing attempt CPR/CODE. -Call Rapid Response if patient is in distress. Care Teams Castables Worker Relationship Specialty Start Date End Date Saima Dorman APRN [address] [place] [address] PCP - General Nurse Practitioner 12/26/21
--- OUTSIDE RECORDS SUMMARY | 2024-10-30 08:47 | XMS_ITS | Encounter Summary ---
Author Organization [employer] ([place], [place], [place], [place]) Address [address] [place] [address] Care Team Providers Care Professor Of English Name Role Phone Saima Dorman APRN Primary Care Provider Encounter Details Date Type Department Care Team (Late st Contact Info) Description 05/12/2021 Transcribed Document [facility] Family Medicine [address] [place] [address] ProviderKarena MD [address] [place] [address] Social History Tobacco Use Types [...] Date Juventino rded Speak language other than Haitian at home Not on file 03/18/2023 Want [...] On: 05/12/2021 15:44 EDT by JOCELYN ARMSTRONG, Casting Machine Set Up Operator Primary Insurance Authorization Authorization and Policy Numbers : Insurance 1 Health Plan: HUMANA Policy Number: [id number] Authorization Number: Insurance 2 Health Plan: MEDICARE Policy Number: [id number] Authorization Number: Insurance Primary Name : [employer] [id number] Authorization Status-Primary : Admit approved Authorization Number-Primary : [id number] Number of Days Authorized-Primary : 0 Day(s) Authorized Service Begin Date-Primary : 05/13/2021 EDT Authorized Service End Date-Primary : 05/13/2021 EDT Authorization Comments-Primary : 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 CT guided on 05-13-21 per [facility] [employer] IP auth# [id number] 1 day approved Historical Authorization Comments-Primary : No Authorization Comments Found JOCELYN ARMSTRONG, Casting Machine Set Up Operator - 05/12/2021 15:44 EDT Electronically signed by Jameel Wilson Conversion Sustainability Project Manager Cerner at 06/16/2022 11:08 AM CDT documented in this encounter Plan of Treatment Not on file documented as of this encounter Visit Diagnoses Not on filedocumented in this encounter Care Teams Professor Of English Relationship Specialty Start Date End Date Saima Dorman, CHRISTI [address] [address] PCP - General Nurse Practitioner 12/26/21 documented as of this encounter
--- OUTSIDE RECORDS SUMMARY | 2024-10-30 08:47 | XMS_ITS | Encounter Summary ---
Author Organization [employer] ([place], [place], [place], [place]) Address [address] [place] [address] Care Team Providers Care Band Cutting Machine Operator Name Role Phone Saima Dorman APRN Primary Care Provider Encounter Details Date Type Department Care Team (Late st Contact Info) Description 05/14/2021 Transcribed Document [facility] [place] [address] [place] [address] ProviderKarena MD [address] [place] [address] Social History Tobacco Use Types [...] Insurance 1 Health Plan: [employer]NA Policy Number: [id number] Authorization Number: [id number] Insurance 2 Health Plan: MEDICARE Policy Number: [id number] Authorization Number: Insurance Primary Name : [place] [id number] Authorization Status-Primary : Admit approved Authorization Number-Primary : [id number] Number of Days Authorized-Primary : 0 Day(s) Authorized Service Begin Date-Primary : 05/13/2021 EDT Authorized Service End Date-Primary : 05/13/2021 EDT Historical Authorization Comments-Primary : Comment 1: 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 CT guided on 05-13-21 per [facility] [employer] IP auth# [id number] 1 day approved (JOCELYN ARMSTRONG, Pediatric Cns 05/12/2021 15:44) Robina Ruiz Rn-Utilization Review - 05/14/2021 12:47 EDT Electronically signed by Katie [facility] Conversion Material Chaser Teresa at 06/16/2022 10:49 AM CDT documented in this encounter Plan of Treatment Not on file documented as of this encounter Visit Diagnoses Not on filedocumented in this encounter Care Teams Band Cutting Machine Operator Relationship Specialty Start Date End Date Saima Dorman, TIRE MOLD ENGRAVER [address] [place] [address] PCP - General Nurse Practitioner 12/26/21 documented as of this encounter
--- OUTSIDE RECORDS SUMMARY | 2024-10-30 08:47 | XMS_ITS | Encounter Summary ---
Author Organization [employer] ([place], [place], [place], [place]) Address [address] [place] [address] Care Team Providers Care Starcher And Tenter Range Feeder Name Role Phone Saima Dorman APRN Primary Care Provider Encounter Details Date Type Department Care Team (Late st Contact Info) Description 05/13/2021 Transcribed Document [facility] [place] Family Medicine [address] [place] [address] ProviderKarena MD [address] [place] [address] Social History Tobacco Use Types [...] Obtained From : Patient Primary Language : Malian Communication Barrier : None Legal Editor Needed : No Meme Hairston Rn - [...] Scale Risk Level : 25-45 Medium Risk [place] Fall Interventions : Adequate lighting, Assistive devices [...] Smokeless Tobacco Status : Never Implant/Device Type, State Manager and Model : bilateral knees Meme Hairston [...] Source : Chart Height Entry Format : [place] Height, Feet : 5 ft(Converted to: 152 cm, 60 Inch) Height, Inches : 2 Inch(Converted to: 0 ft 2 Inch, 5.08 cm) Clinical Height : 157.48 cm Weight Source : Standing scale Weight Entry Format : [place] Clinical Dosing Weight : 109.55 kg Weight, Pounds : 241 lb Body Surface Area (BSA) : 2.07 m2 Body Mass Index : 44.2 kg/m2 (>HHI) [place] Body Weight : 50 kg Meme Hairston [...] Meme Hairston Rn - 05/13/2021 13:13 EDT [place] Suicide Severity Rating Scale (C-SSRS) CSSRS Past [...] on filedocumented in this encounter Care Teams Starcher And Tenter Range Feeder Relationship Specialty Start Date End Date Saima Dorman, CHRISTI [address] [id number] PCP - General Nurse Practitioner 12/26/21 documented as of this encounter
--- OUTSIDE RECORDS SUMMARY | 2024-10-30 08:47 | XMS_ITS | Encounter Summary ---
Author Organization [employer] ([place], [place], [place], [place]) Address [address] [place] [address] Care Team Providers Care Justice Court Deputy Clerk Name Role Phone Saima Dorman APRN Primary Care Provider Encounter Details Date Type Department Care Team (Late st Contact Info) Description 05/13/2021 Transcribed Document [facility] [place] [address] [place] [address] ProviderKarena MD [address] [place] [address] Social History Tobacco Use [...] Date Juventino rded Speak language other than Senegalese at home Not on file 03/18/2023 Want [...] Comment, PT : 56 female adm to [facility] 05/13 for L4-5 Spondylolisthesis Sx 05/13 [...] ROM : WFL Right LE Strength : [facility] LLE Active ROM : L Left LE [...] AVA MENA, PT - 05/13/2021 16:40 EDT Library Monitor Goals Mobility/Bed Mobility LTG PT Grid Goal [...] AVA MENA PT - 05/13/2021 16:40 EDT [place] PT Charges PT Ther Activities Ea 15 Min : 1 PT Eval Low Complexity : 1 AVA MENA PT - 05/13/2021 16:40 EDT documented in this encounter Plan of Treatment Not on file documented as of this encounter Visit Diagnoses Not on filedocumented in this encounter Care Teams Justice Court Deputy Clerk Relationship Specialty Start Date End Date Saima Dorman, SHOT CORE DRILL OPERATOR [address] [address] PCP - General Nurse Practitioner 12/26/21 documented as of this encounter
--- OUTSIDE RECORDS SUMMARY | 2024-10-30 08:47 | XMS_ITS | Encounter Summary ---
Author Organization [employer] ([place], [place], [place], [place]) Address [address] [place] [address] Care Team Providers Care Bradder Name Role Phone Saima Dorman APRN Primary Care Provider [phone] Encounter Details Date Type Department Care Team (Late st Contact Info) Description 05/13/2021 Transcribed Document [facility] Radiology [address] [place] [address] Chelsey Corea MD [address] [place] [address] Social History Tobacco Use Types Packs/Day [...] management HPI: 56 YO female presented to [facility] for a L4-[address] Bledsoe. Pt found to have advanced spondylolisthesis and failed conservative outpt interventions. Pt has elected for surgical intervention. We are asked to follow for postop medical management. Initial visit on floor -- pt is very sleepy from surgery and pain meds. Dtr is present and answers questions for pt. Denies prior stroke or seizure. Denies MD or cardiac arrhythmia. Denies DM. Denies COPD. [...] replacement. LAPS W/VAGINAL HYSTERECTOMY > 250 GRAMS (35301). septal plasty. cholecysectomy. bladder sling. cortisone back injections. FHx: Mother - HTN, CAD Father - Siblings - HTN SHx: No alcohol, tob or illicit drug use. Home Medications (19) Active buPROPion 150 mg, Oral, Daily cyclobenzaprine 10 mg, PRN, Oral, TID dilTIAZem 240 mg, Oral, Daily DULoxetine 30 mg, Oral, BID Dupixent 200 mg, SubCutaneous, R1Kuhzx Lasix 40 mg, Oral, Daily levocetirizine 5 [...] ms QTC Calculation(Bezet) : 417 ms P [place] : 27 degrees R [place] : 24 degrees T [place] : 26 degrees Normal sinus rhythm Poor R wave progression Confirmed by Mona GUTIERREZ, ELEUTERIO ([id number]), editor producer Odilia Vines ([id number]) on 05/12/2021 4:41:36 PM Assessment/Plan: Advanced spondylolisthesis [...] on filedocumented in this encounter Care Teams Bradder Relationship Specialty Start Date End Date Saima Dorman APRN [address] [place] [address] PCP - General Nurse Practitioner 12/26/21 documented as of this encounter
--- OUTSIDE RECORDS SUMMARY | 2024-10-30 08:48 | XMS_ITS | Encounter Summary ---
Author Organization [employer] ([place], [place], [place], [place]) Address [address] [place] [address] Care Team Providers Care Collection Systems Technician Name Role Phone Saima Dorman APRN Primary Care Provider Encounter Details Date Type Department Care Team (Late st Contact Info) Description 05/13/2021 Transcribed Document [facility] Family Medicine [address] [place] [address] ProviderKarena MD [address] [place] [address] Social History Tobacco Use Types [...] Date Juventino rded Speak language other than Malawian at home Not on file 03/18/2023 Want [...] on filedocumented in this encounter Care Teams Collection Systems Technician Relationship Specialty Start Date End Date Saima Dorman, CHRISTI [address] [id number] PCP - General Nurse Practitioner 12/26/21 documented as of this encounter
--- OUTSIDE RECORDS SUMMARY | 2024-10-30 08:48 | XMS_ITS | Encounter Summary ---
Author Organization [employer] ([place], [place], [place], [place]) Address [address] [place] [address] Care Team Providers Care Concrete Finisher Apprentice Name Role Phone Saima Dorman APRN Primary Care Provider Encounter Details Date Type Department Care Team (Late st Contact Info) Description 05/15/2021 Transcribed Document [facility] [place] Family Medicine [address] [place] [address] ProviderKarena MD [address] [place] [address] Social History Tobacco Use Types [...] Date Juventino rded Speak language other than Saudi Arabian at home Not on file 03/18/2023 Want [...] AVA MENA, PT - 05/15/2021 15:37 EDT Factory Supervisor Goals Mobility/Bed Mobility LTG PT Grid Goal [...] 05/15/2021 15:37 EDT Electronically signed by Katie [facility] Conversion Silviculture Forester Cerner at 06/16/2022 10:59 AM CDT documented in this encounter Plan of Treatment Not on file documented as of this encounter Visit Diagnoses Not on filedocumented in this encounter Care Teams Concrete Finisher Apprentice Relationship Specialty Start Date End Date Saima Dorman, ORCHARD PRUNER [address] [phone] PCP - General Nurse Practitioner 12/26/21 documented as of this encounter
--- OUTSIDE RECORDS SUMMARY | 2024-10-30 08:48 | XMS_ITS | Encounter Summary ---
Author Organization [employer] ([place], [place], [place], [place]) Address [address] [place] [address] Care Team Providers Care Mystery Shopper Name Role Phone Saima Dorman APRN Primary Care Provider Encounter Details Date Type Department Care Team (Late st Contact Info) Description 05/13/2021 Transcribed Document [facility] [place] Family Medicine [address] [place] [address] ProviderKarena MD [address] [place] [address] Social History Tobacco Use Types [...] Date Juventino rded Speak language other than Ethiopian at home Not on file 03/18/2023 Want [...] Electronically signed by Luis Angel Wilson Conversion Professor Of Communication And Writing Cerner at 06/16/2022 10:57 AM CDT documented in this encounter Plan of Treatment Not on file documented as of this encounter Visit Diagnoses Not on filedocumented in this encounter Care Teams Mystery Shopper Relationship Specialty Start Date End Date Saima Dorman, CHRISTI [address] [phone] PCP - General Nurse Practitioner 12/26/21 documented as of this encounter
--- OUTSIDE RECORDS SUMMARY | 2024-10-30 08:48 | XMS_ITS | Encounter Summary ---
Author Organization [employer] ([place], [place], [place], [place]) Address [address] [place] [address] Care Team Providers Care Bias Binding Folder Name Role Phone Saima Dorman APRN Primary Care Provider [phone] Encounter Details Date Type Department Care Team (Late st Contact Info) Description 05/15/2021 Transcribed Document [facility] [place] [address] [place] [address] ProviderKarena MD [address] [place] [address] Social History Tobacco Use Types [...] Insurance 1 Health Plan: HUMANA Policy Number: [id number] Authorization Number: [id number] Insurance 2 Health Plan: MEDICARE Policy Number: [id number] Authorization Number: Insurance Primary Name : [employer] [id number] Authorization Status-Primary : Admit approved Reference Number-Primary : [id number] Authorization Number-Primary : [id number] Number of Days Authorized-Primary : 0 Day(s) Authorized Service Begin Date-Primary : 05/13/2021 EDT Authorized Service End Date-Primary : 05/13/2021 EDT Authorization Comments-Primary : Ref # per Day Dong, payor has access to EMR, 05/13-05/15, NRD 05/16 Historical Authorization Comments-Primary : Comment 1: clinicals submitted per [facility] for c/s auth (ALE MERAZ RN-UTILIZATION MANAGEMENT REVIEW NON-EXEMPT 05/15/2021 08:58) Comment 2: 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 CT guided on 05-13-21 per [facility] IP auth# [id number] 1 day approved (JOCELYN ARMSTRONG, Machine Tool Dresser 05/12/2021 15:44) ALE MERAZ RN-UTILIZATION MANAGEMENT REVIEW NON-EXEMPT - 05/15/2021 13:11 EDT documented in this encounter Plan of Treatment Not on file documented as of this encounter Visit Diagnoses Not on filedocumented in this encounter Care Teams Bias Binding Folder Relationship Specialty Start Date End Date Saima Dorman, CHRISTI [address] [address] PCP - General Nurse Practitioner 12/26/21 documented as of this encounter
--- OUTSIDE RECORDS SUMMARY | 2024-10-30 08:48 | XMS_ITS | Clinical Summary ---
Author Organization [facility] Address [address] [place] [address] Care Team Providers Care Ocean Clam Boat Captain Name Role Phone Saima Dorman CHRISTI Primary Care Provider [phone] Allergies Active Allergy Reactions Criticality Noted Date [...] (one) time each day. Active HYDROcodone-aceta minophen ([place]) 7.5-325 MG tablet 2 Active methylPREDNISolon e (Medrol Dospak) 4 MG tablets 2 Active pregabalin (Lyrica) 150 MG capsule 2 Active hydrocortisone (Cortef) 10 MG tabletIndications :Adrenal insufficiency (Lincoln's disease) (CMS/HCC) Take 1 tablet (10 mg [...] Active fluticasone (Flonase) 50 MCG/ACT nasal spray Kramer 1 spray every day by intranasal route [...] valgus 08/06/202209/17 Hammer toe, acquired 08/06/2022 023 Immunizations Immunization Administration Dates Next Due Hep [...] 03/17/2024 12:58 PM EST Plan of Treatment Health Maintenance [...] 2014 UKY-Zoster Vaccines (1 of 2) 2014 [id number] Vaccine (3 - Moderna risk series) 08/06/2020 [...] this topic Medical Devices Implanted Type Area Management Assistant Device Identifier Shelf Expiration Date Model / Serial / Lot Medtronic Spinal Cord Stimulator-10/31 Implanted:10/31 (Quantity not on file) Spinal Cord Stimulator Back Medtronic [id number] / / Description:MEDTRONIC SCS LE AD MODEL: [id number], implant date 11/19/2023 Procedures Procedure Name Priority [...] Adults <6.0% Children and Adolescents <7.5% Source: [place] Diabetes Association. Standards of medical care in diabetes,2017. Diabetes Care.2017:40 (suppl 1):S1-S135. HbA1c assay performed by an ion-exchange chromatography method that is certified traceable to the DCCT. Emanuel Tadeo MD LAB BLOOD ORDERABLES Final Result [facility] [address] [place] [address] from Last 3 Months or Most Recently Relevant to Health Maintenance Insurance MEDICARE ANTHEM Care Teams Ocean Clam Boat Captain Relationship Specialty Start Date End Date Saima Dorman APRN [address] [place] [address] PCP - General 07/12/20
--- OUTSIDE RECORDS SUMMARY | 2024-10-30 08:48 | XMS_ITS | Encounter Summary ---
Author Organization [employer] ([place], [place], [place], [place]) Address [address] [place] [address] Care Team Providers Care Passenger Conductor Name Role Phone Saima Dorman APRN Primary Care Provider Encounter Details Date Type Department Care Team (Late st Contact Info) Description 05/15/2021 Transcribed Document [facility] [place] [address] [place] [address] ProviderKarena MD [address] [place] [address] Social History Tobacco Use Types [...] 05/15/2021 14:56 EDT Electronically signed by Katie [facility] Conversion Trouble Locater Cerner at 06/16/2022 11:08 AM CDT documented in this encounter Plan of Treatment Not on file documented as of this encounter Visit Diagnoses Not on filedocumented in this encounter Care Teams Passenger Conductor Relationship Specialty Start Date End Date Saima Dorman, CAN MACHINE OPERATOR [address] [place] [address] PCP - General Nurse Practitioner 12/26/21 documented as of this encounter
--- OUTSIDE RECORDS SUMMARY | 2024-10-30 08:48 | XMS_ITS | Encounter Summary ---
Author Organization [employer] ([place], [place], [place], [place]) Address [address] [place] [address] Care Team Providers Care Planer Tailer Name Role Phone Saima Dorman APRN Primary Care Provider Encounter Details Date Type Department Care Team (Late st Contact Info) Description 05/15/2021 Transcribed Document [facility] [place] [address] [place] [address] ProviderKarena MD [address] [place] [address] Social History Tobacco Use Types [...] Date Juventino rded Speak language other than Anguillan at home Not on file 03/18/2023 Want [...] Insurance 1 Health Plan: HUMANA Policy Number: [id number] Authorization Number: [id number] Insurance 2 Health Plan: MEDICARE Policy Number: [id number] Authorization Number: Insurance Primary Name : Humana [id number] Authorization Status-Primary : Admit approved Reference Number-Primary : [id number] Authorization Number-Primary : [id number] Number of Days Authorized-Primary : 2 Day(s) Authorized Service Begin Date-Primary : 05/13/2021 EDT Authorized Service End Date-Primary : 05/15/2021 EDT Historical Authorization Comments-Primary : Comment 1: Ref # per Day Dong, payor has access to EMR, 05/13-05/15, NRD 05/16 (ALE MERAZ RN-UTILIZATION MANAGEMENT REVIEW NON-EXEMPT 05/15/2021 13:11) Comment 2: clinicals submitted per [facility] for c/s auth (ALE MERAZ RN-UTILIZATION MANAGEMENT REVIEW NON-EXEMPT 05/15/2021 08:58) Comment 3: 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 CT guided on 05-13-21 per [facility] [employer] IP auth# [id number] 1 day approved (JCOELYN ARMSTRONG, Powder Operator 05/12/2021 15:44) ALE MERAZ RN-UTILIZATION MANAGEMENT REVIEW NON-EXEMPT - 05/15/2021 13:12 EDT Electronically signed by Katie [facility] Conversion Boilermaker Pipe Fitter Cerner at 06/16/2022 11:11 AM CDT documented in this encounter Plan of Treatment Not on file documented as of this encounter Visit Diagnoses Not on filedocumented in this encounter Care Teams Planer Tailer Relationship Specialty Start Date End Date Dorman, Saima, FINANCIAL REPORTING ADVISOR [address] [phone] PCP - General Nurse Practitioner 12/26/21 documented as of this encounter
--- OUTSIDE RECORDS SUMMARY | 2024-10-30 08:48 | XMS_ITS | Encounter Summary ---
Author Organization [employer] ([place], [place], [place], [place]) Address [address] [place] [address] Care Team Providers Care Emergency Preparedness Coordinator Name Role Phone Saima Dorman APRN Primary Care Provider [phone] Encounter Details Date Type Department Care Team (Late st Contact Info) Description 05/15/2021 Transcribed Document [facility] [place] [address] [place] [address] ProviderKarena MD [address] [place] [address] Social History Tobacco Use Types [...] on filedocumented in this encounter Care Teams Emergency Preparedness Coordinator Relationship Specialty Start Date End Date Saima Dorman, CHRISTI [address] [phone] PCP - General Nurse Practitioner 12/26/21 documented as of this encounter
--- OUTSIDE RECORDS SUMMARY | 2024-10-30 08:48 | XMS_ITS | Encounter Summary ---
Author Organization [employer] ([place], [place], [place], [place]) Address [address] [place] [address] Care Team Providers Care [address] Light Servicer Supervisor Name Role Phone Saima Dorman APRN Primary Care Provider [phone] Encounter Details Date Type Department Care Team (Late st Contact Info) Description 05/15/2021 Transcribed Document [facility] [place] Family [place] [address] [place] [address] ProviderKarena MD [address] [place] [address] Social History Tobacco Use Types [...] Date Juventino rded Speak language other than Nepalese at home Not on file 03/18/2023 Want [...] care provider or a person from your er medical technician company will show you how to use [...] it and its top with a disinfectant septic tank cleaner. ? Air-dry it. ? Make sure [...] aerosol sprays. ? Rubbing alcohol. ? Hand globe cleaner. ??? When you go to a restaurant [...] not move around. Follow instructions from your er medical technician company about how to safely secure your [...] documents from your health care provider and er medical technician company before you travel. General safety tips [...] tubing. Where to find more information ??? [place] [employer] Association: www.lung.org/oxygen Contact a health care [...] care provider or a person from your er medical technician company will show you how to use [...] provider. Document Revised: 04/18/2020 Document Reviewed: 02/13/2020 Youth [employer]ise Patient Education ? 2020 MyCare. documented in this encounter Plan of Treatment Not on file documented as of this encounter Visit Diagnoses Not on filedocumented in this encounter Care Teams Street Light Servicer Supervisor Relationship Specialty Start Date End Date Saima Dorman APRN [address] [address] PCP - General Nurse Practitioner 12/26/21 documented as of this encounter
--- OUTSIDE RECORDS SUMMARY | 2024-10-30 08:48 | XMS_ITS | Encounter Summary ---
Author Organization [employer] ([place], [place], [place], [place]) Address [address] [place] [address] Care Team Providers Care Hat Sizer Name Role Phone Saima Dorman APRN Primary Care Provider Encounter Details Date Type Department Care Team (Late st Contact Info) Description 05/19/2021 Transcribed Document [facility] [place] [address] [place] [address] ProviderKarena MD [address] [place] [address] Social History Tobacco Use Types [...] Juventino rded Speak language other than South African at home Not on file 03/18/2023 Want [...] On: 05/19/2021 14:04 EDT by Lucy Vidales, Bilingual Medical Assistant Primary Insurance Authorization Authorization and Policy Numbers : Insurance 1 Health Plan: HUMANA Policy Number: [id number] Authorization Number: [id number] Insurance 2 Health Plan: MEDICARE Policy Number: [id number] Authorization Number: Insurance Primary Name : Humana - [id number] Authorization Status-Primary : Approved Auth/Referral Contact Name-Primary : [place] Reference Number-Primary : [id number] Authorization Number-Primary : [id number] Number of Days Authorized-Primary : 2 Day(s) Authorized Service Begin Date-Primary : 05/13/2021 EDT Authorized Service End Date-Primary : 05/15/2021 EDT Authorization Comments-Primary : Discharge summary faxed. Historical Authorization Comments-Primary : Comment 1: Ref # per Day Dong, payor has access to EMR, 05/13-05/15, NRD 05/16 (ALE MERAZ RN-UTILIZATION MANAGEMENT REVIEW NON-EXEMPT 05/15/2021 13:11) Comment 2: clinicals submitted per [facility] for c/s auth (ALE MERAZ RN-UTILIZATION MANAGEMENT REVIEW NON-EXEMPT 05/15/2021 08:58) Comment 3: 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 CT guided on 05-13-21 per [facility] [employer] IP auth# [id number] 1 day approved (JOCELYN ARMSTRONG, Curtain Roller Assembler 05/12/2021 15:44) Lucy Vidales, Bilingual Medical Assistant - 05/19/2021 14:04 EDT Electronically signed by Katie [facility] Conversion Overhead Distribution Engineer Cerner at 06/16/2022 11:03 AM CDT documented in this encounter Plan of Treatment Not on file documented as of this encounter Visit Diagnoses Not on filedocumented in this encounter Care Teams Hat Sizer Relationship Specialty Start Date End Date Saima Dorman, UNIT SUPPORT REPRESENTATIVE [address] [place] [address] PCP - General Nurse Practitioner 12/26/21 documented as of this encounter
--- OUTSIDE RECORDS SUMMARY | 2024-10-30 08:48 | XMS_ITS | Encounter Summary ---
Author Organization [employer] ([place], [place], [place], [place]) Address [address] [place] [address] Care Team Providers Care Surgical Supplies Sterilizer Name Role Phone Saima Dorman APRN Primary Care Provider Encounter Details Date Type Department Care Team (Late st Contact Info) Description 05/15/2021 Transcribed Document [facility] [place] Family Medicine [address] [place] [address] ProviderKarena MD [address] [place] [address] Social History Tobacco Use [...] Date Juventino rded Speak language other than Singaporean at home Not on file 03/18/2023 Want [...] On: 05/15/2021 16:58 EDT by CELSO LEIJA, RN-Work Force Advisor Final Discharge Planning Discharge Arrangements : Patient [...] Services (Related/SOC within 3 days)-06 CELSO LEIJA RN-Work Force Advisor - 05/15/2021 16:58 EDT Final Narrative Note [...] No other CM needs noted. CELSO LEIJA, RN-Work Force Advisor - 05/15/2021 16:58 EDT Electronically signed by Katie [facility] Conversion Sheep Sorter Cerner at 06/16/2022 11:14 AM CDT documented in this encounter Plan of Treatment Not on file documented as of this encounter Visit Diagnoses Not on filedocumented in this encounter Care Teams Surgical Supplies Sterilizer Relationship Specialty Start Date End Date Saima Dorman, TYPEWRITER ASSEMBLY AND PARTS INSPECTOR [address] [place] [address] PCP - General Nurse Practitioner 12/26/21 documented as of this encounter
--- OUTSIDE RECORDS SUMMARY | 2024-10-30 08:48 | XMS_ITS | Encounter Summary ---
Author Organization [employer] ([place], [place], [place], [place]) Address [address] [place] [address] Care Team Providers Care Ornamental Plaster Sticker Name Role Phone Saima Dorman APRN Primary Care Provider Encounter Details Date Type Department Care Team (Late st Contact Info) Description 05/13/2021 Transcribed Document [facility] Family Medicine [address] [place] [address] ProviderKarena MD [address] [place] [address] Social History Tobacco Use Types [...] Evaluation and Treatme Ordered By: ROSALEE ZHENG MD-[facility] Active Diagnoses : 05/14/2021 12:00 Radiculopathy, lumbar region 05/13/2021 12:00 Spondylolisthesis, lumbar region Admission Date : 05/13/2021 06:34 Co-treated by, OT : medical assistant dermatology (J2EE PROGRAMMER) Personal Devices : Personal Devices No Devices Recorded Assistive Devices : Assistive Devices No Devices Recorded Precautions in Place : Log roll precautions, Spinal Precautions LOIS PERALTA OT Student - 05/14/2021 14:38 EDT General Status Patient Received Status : Sitting edge of bed, Other: J2EE PROGRAMMER in room Treatment Start Time : 05/14/2021 [...] : Pt was found sitting EOB with J2EE PROGRAMMER in room. Pt was given AE and education. Pt was supervision for transfer to [facility] via RWx. Pt was set up assistance [...] PERALTA OT Student - 05/14/2021 14:[address] [place] OT Charges OT Selfcare/Hm Mgmt Ea 15 Min : 2 OT Eval Moderate Complexity : 1 LOIS PERALTA OT Student - 05/14/2021 14:39 EDT documented in this encounter Plan of Treatment Not on file documented as of this encounter Visit Diagnoses Not on filedocumented in this encounter Care Teams Ornamental Plaster Sticker Relationship Specialty Start Date End Date Saima Dorman, LEAD CASE MANAGER [address] [id number] PCP - General Nurse Practitioner 12/26/21 documented as of this encounter
--- OUTSIDE RECORDS SUMMARY | 2024-10-30 08:48 | XMS_ITS | Encounter Summary ---
Author Organization [employer] ([place], [place], [place], [place]) Address [address] [place] [address] Care Team Providers Care Community Health Navigator Name Role Phone Samia Dorman APRN Primary Care Provider Encounter Details Date Type Department Care Team (Late st Contact Info) Description 05/15/2021 Transcribed Document [facility] Radiology [address] [place] [address] Chelsey Corea MD [address] [place] [address] Social History Tobacco Use Types Packs/Day [...] Date Juventino rded Speak language other than [place] Citizen at home Not on file 03/18/2023 Want [...] 1965 Associated Diagnoses: None Author: ANDIE HILL PA-[facility] 05/15/21 CC: postop medical management S: Pt is doing ok. No f'/c/s. No n/v/d. (+) gas, (-) BM. No CP, SOA, palpitations. No cough or sputum. Urinating well. +post op pain. Using incentive spirometer. Much more awake today. Still has O2 on at 2L. HPI: 56 YO female presented to [facility] for a L4-[address] Bledsoe. Pt found to have advanced spondylolisthesis and failed conservative outpt interventions. Pt has elected for surgical intervention. We are asked to follow for postop medical management. Initial visit on floor -- pt is very sleepy from surgery and pain meds. Dtr is present and answers questions for pt. Denies prior stroke or seizure. Denies [place] or cardiac arrhythmia. Denies DM. Denies COPD. [...] replacement. LAPS W/VAGINAL HYSTERECTOMY > 250 GRAMS ([id number]). septal plasty. cholecysectomy. bladder sling. cortisone back injections. FHx: Mother - HTN, CAD Father - Siblings - HTN SHx: No alcohol, tob or illicit drug use. Home Medications (20) Active buPROPion 150 mg, Oral, Daily cyclobenzaprine 10 mg, PRN, Oral, TID dilTIAZem 240 mg, Oral, Daily DULoxetine 30 mg, Oral, BID Dupixent 200 mg, SubCutaneous, I6Gdlqv Lasix 40 mg, Oral, Daily levocetirizine 5 mg, Oral, Daily losartan 50 mg, Oral, Daily Lunesta 2 mg, Oral, At Bedtime Lyrica 200 mg, Oral, BID meloxicam 15 mg, Oral, Daily Milk Thistle oral capsule 1 Cap, Oral, Daily montelukast 10 mg, Oral, Daily B[place]ow 7.5 mg-325 mg oral tablet 1 Tab, [...] ms QTC Calculation(Bezet) : 417 ms P [place] : 27 degrees R [place] : 24 degrees T [place] : 26 degrees Normal sinus rhythm Poor R wave progression Confirmed by Mona GUTIERREZ SURESH ([id number]), acquisition editor Odilia Vines ([id number]) on 05/12/2021 4:41:36 PM Assessment/Plan: Advanced spondylolisthesis [...] on filedocumented in this encounter Care Teams Community Health Navigator Relationship Specialty Start Date End Date Saima Dorman, MILL ATTENDANT [address] [address] PCP - General Nurse Practitioner 12/26/21 documented as of this encounter
--- OUTSIDE RECORDS SUMMARY | 2024-10-30 08:48 | XMS_ITS | Encounter Summary ---
Author Organization [employer] ([place], [place], [place], [place]) Address [address] [place] [address] Care Team Providers Care Form Drafter Name Role Phone Saima Dorman APRN Primary Care Provider Encounter Details Date Type Department Care Team (Late st Contact Info) Description 05/13/2021 Transcribed Document [facility] Family Medicine [address] [place] [address] ProviderKarena MD [address] [place] [address] Social History Tobacco Use Types [...] Eval and Treat Ordered By: ROSALEE ZHENG MD-[facility] 05/13/2021 16:56 Physical Therapy Additional Tx [...] Yes CHRISTINA CHRISTIAN PTA 05/14/2021 11:48 EDT Intermediate Goals Mobility/Bed Mobility LTG PT Grid Goal #1 Goal #2 Activity : Supine to sit Sit to stand Assist : Independent, modified Independent, modified Equipment : Bed, hospital Walker, front wheel Date to Meet : 05/27/2021 EDT 05/27/2021 EDT Goal Status : Intial Goal Progressing, continue CHRISTINA CHRISTIAN [facility] 05/14/2021 11:48 EDT CHRISTINA CHRISTIAN [facility] 05/14/2021 11:48 EDT Ambulation LTG Grid Goal #1 Device : Walker, front wheel Distance : 350 ft w/O2 sts >88% Assist : Independent, modified Date to Meet : 05/27/2021 EDT Goal Status : Progressing, continue CHRISTINA CHRISTIAN [facility] 05/14/2021 11:48 EDT Stairs LTG Grid Goal [...] CHRISTINA CHRISTIAN PTA - 05/14/2021 11:48 EDT [place] PT Charges PASTRY ARTIST PT Therap. Exercise 15 min-PASTRY ARTIST : 1 PT Ther Activities Ea 15 Min-PASTRY ARTIST : 1 CHRISTINA CHRISTIAN PTA - 05/14/2021 11:48 EDT documented in this encounter Plan of Treatment Not on file documented as of this encounter Visit Diagnoses Not on filedocumented in this encounter Care Teams Form Drafter Relationship Specialty Start Date End Date Saima Dorman, CHRISTI [address] [id number] PCP - General Nurse Practitioner 12/26/21 documented as of this encounter
--- OUTSIDE RECORDS SUMMARY | 2024-10-30 08:48 | XMS_ITS | Encounter Summary ---
Author Organization [employer] ([place], [place], [place], [place]) Address [address] [place] [address] Care Team Providers Care Advertising Specialist Name Role Phone Saima Dorman APRN Primary Care Provider Encounter Details Date Type Department Care Team (Late st Contact Info) Description 05/15/2021 Transcribed Document [facility] [place] Family Medicine [address] [place] [address] ProviderKarena MD [address] [place] [address] Social History Tobacco Use Types [...] on filedocumented in this encounter Care Teams Advertising Specialist Relationship Specialty Start Date End Date Saima Dorman, MULTIFOCAL BUTTON INSPECTOR [address] [phone] PCP - General Nurse Practitioner 12/26/21 documented as of this encounter
--- OUTSIDE RECORDS SUMMARY | 2024-10-30 08:48 | XMS_ITS | Encounter Summary ---
Author Organization [employer] ([place], [place], [place], [place]) Address [address] [place] [address] Care Team Providers Care Channel Turner Name Role Phone Saima Dorman APRN Primary Care Provider [phone] Encounter Details Date Type Department Care Team (Late st Contact Info) Description 05/15/2021 Transcribed Document [facility] Family Medicine [address] [place] [address] ProviderKarena MD [address] [place] [address] Social History Tobacco Use Types [...] 05/15/2021 12:01 EDT Electronically signed by Katie [facility] Conversion Manager Linux Cerner at 06/16/2022 11:06 AM CDT documented in this encounter Plan of Treatment Not on file documented as of this encounter Visit Diagnoses Not on filedocumented in this encounter Care Teams Channel Turner Relationship Specialty Start Date End Date Saima Dorman, CREDIT CASHIER [address] [place] [address] PCP - General Nurse Practitioner 12/26/21 documented as of this encounter
--- OUTSIDE RECORDS SUMMARY | 2024-10-30 08:48 | XMS_ITS | Encounter Summary ---
Author Organization [employer] ([place], [place], [place], [place]) Address [address] [place] [address] Care Team Providers Care Casino Banker Name Role Phone Saima Dorman APRN Primary Care Provider Encounter Details Date Type Department Care Team (Late st Contact Info) Description 05/13/2021 Transcribed Document [facility] Family Medicine [address] [place] [address] ProviderKarena MD [address] [place] [address] Social History Tobacco Use [...] Date Juventino rded Speak language other than Cuban at home Not on file 03/18/2023 Want [...] filedocumented in this encounter Care Teams Casino Banker Relationship Specialty Start Date End Date Saima Dorman APRN [address] [phone] PCP - General Nurse Practitioner 12/26/21 documented as of this encounter
--- OUTSIDE RECORDS SUMMARY | 2024-10-30 08:48 | XMS_ITS | Encounter Summary ---
Author Organization [employer] ([place], [place], [place], [place]) Address [address] [place] [address] Care Team Providers Care Boatbuilder Apprentice Wood Name Role Phone Saima Dorman APRN Primary Care Provider Encounter Details Date Type Department Care Team (Late st Contact Info) Description 05/15/2021 Transcribed Document [facility] Family Medicine [address] [place] [address] ProviderKarena MD [address] [place] [address] Social History Tobacco Use Types [...] Date Juventino rded Speak language other than Slovenian at home Not on file 03/18/2023 Want [...] EDT Electronically signed by Jameel Wilson Conversion Customer Solutions Supervisor Cerner at 06/16/2022 11:05 AM CDT documented in this encounter Plan of Treatment Not on file documented as of this encounter Visit Diagnoses Not on filedocumented in this encounter Care Teams Boatbuilder Apprentice Wood Relationship Specialty Start Date End Date Saima Dorman, CISCO CERTIFIED NETWORK PROFESSIONAL [address] [phone] PCP - General Nurse Practitioner 12/26/21 documented as of this encounter
--- OUTSIDE RECORDS SUMMARY | 2024-10-30 08:48 | XMS_ITS | Clinical Summary ---
Author Organization [employer] ([place], [place], [place], [place]) Address [address] [place] [address] Care Team Providers Care Product Communications Manager Name Role Phone Saima Dorman APRN [...] Date Juventino rded Speak language other than Ivorian at home Not on file 03/18/2023 Want [...] 12:13 PM EDT Performed at: 01 - [address] [id number] Supervisor Area: Abner Diaz PhD, Phone: [phone] Kayley Whitaker MD LAB BLOOD ORDERABLES Final R esult [facility] * Hepatitis C Virus Ab w/Rflx to HCV NAAT(SENDOUT) (07/03/2022 1:21 PM EDT) Pathologist [facility] [place] Hepatitis C Antibody by SENG Interp Negative Negative 07/05/2022 10:57 AM EDT [employer] Comment: Based on the anti-HCV (SENG) screen, [...] Index 0.04 IV 07/05/2022 10:57 AM EDT [employer] Comment: Performed by [facility], [address] [place] [id number] [email or web address], Carson Jay MD, PHD, Lab. Director Blood Venipuncture / Unknown 07/03/2022 1:21 PM EDT 07/03/2022 1:28 PM EDT Karolyn Ramos PA-C LAB BLOOD ORDERABLES Final [place] [address], [facility] [phone] from Last 3 Months or Most Recently Relevant to Health Maintenance Insurance [employer] CHOICE PPO BLUE CROSS/BLUE SHIELD Advance Directives For more information, please contact: [phone] * Full Code (Latest Code Status on File) Date Activated Date Inactivated Comments 04/29/2022 9:21 AM 04/29/2022 1:52 PM -Attempt Resus citation if person has no pulse and is not breathing. -If no pulse or not breathing attempt CPR/CODE. -Call Rapid Response if patient is in distress. Care Teams Product Communications Manager Relationship Specialty Start Date End Date Saima Dorman, HUMAN CAPITAL MANAGER [address] [place] [address] PCP - General Nurse Practitioner 12/26/21
--- OUTSIDE RECORDS SUMMARY | 2024-10-30 08:48 | XMS_ITS | Encounter Summary ---
Author Organization [employer] ([place], [place], [place], [place]) Address [address] [place] [address] Care Team Providers Care Merchandising Team Lead Name Role Phone Saima Dorman APRN Primary Care Provider Encounter Details Date Type Department Care Team (Late st Contact Info) Description 05/15/2021 Transcribed Document [facility] Family Medicine [address] [place] [address] ProviderKarena MD [address] [place] [address] Social History Tobacco Use Types [...] Date Juventino rded Speak language other than Libyan at home Not on file 03/18/2023 Want [...] 05/15/2021 15:39 EDT Electronically signed by Katie [facility] Conversion Resident In Diagnostic Radiology Cerner at 06/16/2022 11:01 AM CDT documented in this encounter Plan of Treatment Not on file documented as of this encounter Visit Diagnoses Not on filedocumented in this encounter Care Teams Merchandising Team Lead Relationship Specialty Start Date End Date Saima Dorman, SHEET METAL LAY OUT WORKER [address] [place] [address] PCP - General Nurse Practitioner 12/26/21 documented as of this encounter
--- OUTSIDE RECORDS SUMMARY | 2024-10-30 08:48 | XMS_ITS | Encounter Summary ---
Author Organization [employer] ([place], [place], [place], [place]) Address [address] [place] [address] Care Team Providers Care Site Head Name Role Phone Saima Dorman APRN Primary Care Provider Encounter Details Date Type Department Care Team (Late st Contact Info) Description 01/22/2019 Transcribed Document [facility] [place] [address] [place] [address] ProviderKarena MD [address] [place], [place] [address] Social History Tobacco Use Types Packs/Day Years Used Date Smoking Tobacco: Never Assessed Comments Unknown Sex and Gender Information Value Date Recorded Sex Assigned at Not on file Legal Sex Female 5:23 PM CDT Gender Identity Not on file Sexual Orientation Not on file documented as of this encounter Miscellaneous Notes * [employer] Conversion Note - Karena Ashby MD - 01/22/2019 9:15 PM NEONATAL DOCTOR Orthopedic Nurse Navigator Entered On: 01/23/2019 14:00 EST Performed On: 01/22/2019 21:15 EST by Vandana Chun Nurse ham facer Nurse Navigator Assessment Attended [employer] : [...] on filedocumented in this encounter Care Teams Site Head Relationship Specialty Start Date End Date Saima Dorman, HOUSE SITTER [address] [place] [address] PCP - General Nurse Practitioner 12/26/21 documented as of this encounter
--- OUTSIDE RECORDS SUMMARY | 2024-10-30 08:48 | XMS_ITS | Encounter Summary ---
Author Organization Healthcare Address [address] [place] [address] Care Team Providers Care Hollow Handle Knife Assembler Name Role Phone Saima Dorman CHRISTI Primary Care Provider [phone] Encounter Details Date Type Department Care Team (Late st Contact Info) Description 07/19/2024 Results [facility] Medicine Specialties [address] [place] [address] Quin Levy MD [address] [place] [address] Social History Tobacco Use Types [...] documented as of this encounter Care Teams Hollow Handle Knife Assembler Relationship Specialty Start Date End Date Saima Dorman APRN [address] [place] [address] PCP - General 07/12/20 documented as of this encounter
--- OUTSIDE RECORDS SUMMARY | 2024-10-30 08:48 | XMS_ITS | Encounter Summary ---
Author Organization [employer] ([place], [place], [place], [place]) Address [address] [place] [address] Care Team Providers Care Refrigeration Lead Name Role Phone Saima Dorman APRN Primary Care Provider Encounter Details Date Type Department Care Team (Late st Contact Info) Description 05/15/2021 Transcribed Document [facility] Neurology - [address] [facility] [address] [place] [address] Rosalee Zheng MD [facility] [address] [place] [address] Social History Tobacco Use Types Packs/Day Years [...] or Dilaudid. We did also give her [place] to go home with instead of Percocet. [...] montelukast, 10 mg= 1 Tab, Oral, QPM [place] 5 mg-325 mg oral tablet, 1 Tab, [...] Lymph # 1.50 x10(3)/uL 05/15/2021 03:58 EDT [place] % 9.0 % 05/15/2021 03:58 EDT [place] # 0.97 K/uL 05/15/2021 03:58 EDT Eos [...] on filedocumented in this encounter Care Teams Refrigeration Lead Relationship Specialty Start Date End Date Saima Dorman, CONSUMER MARKETING ANALYST [address] [address] PCP - General Nurse Practitioner 12/26/21 documented as of this encounter
--- OUTSIDE RECORDS SUMMARY | 2024-10-30 08:48 | XMS_ITS | Clinical Summary ---
[facility] Address [address] [place] [address] Care Team Providers Care Day Light Relief Operator Name Role Phone Unavailable Primary Care Provider [...] 2023- season) 2023 INFLUENZA VACCINE 11/29/2024 Insurance [facility] PPO
== END 2024-10-27 23:59 ==
LOC: LAB.DROPOF 10-30 08:44
PROVIDERS: PCP Nurse Practitioner Family; Visit Provider Nurse Practitioner Family
DX: M25.541 Pain in joints of right hand (principal); M25.542 Pain in joints of left hand; R73.03 Prediabetes
CPT/HCPCS: 83036; 84550

== ENCOUNTER 2024-11-03 14:04 | Outpatient (CLI) | payer BC, SELFPAY ==
--- OUTSIDE RECORDS SUMMARY | 2024-11-03 14:07 | XMS_ITS | Clinical Summary ---
[facility] Organization [facility] Address [address] [place] [address] Care Team Providers Care Parts Picker Name Role Phone Unavailable Primary Care Provider [...] 2014 COVID-19 Vaccine (1 - 2023- season) 2024 INFLUENZA VACCINE 11/29/2024 Insurance [facility] PPO
--- OUTSIDE RECORDS SUMMARY | 2024-11-03 14:07 | XMS_ITS | Clinical Summary ---
Author Organization [facility] Address [address] [place] [address] Care Team Providers Care Mule Packer Name Role Phone Saima Dorman CHRISTI Primary Care Provider [phone] Allergies Active Allergy Reactions Criticality Noted Date [...] (one) time each day. Active HYDROcodone-aceta minophen ([place]) 7.5-325 MG tablet 2 Active methylPREDNISolon e (Medrol Dospak) 4 MG tablets 2 Active pregabalin (Lyrica) 150 MG capsule 2 Active hydrocortisone (Cortef) 10 MG tabletIndications :Adrenal insufficiency (Starr's disease) (CMS/HCC) Take 1 tablet (10 mg [...] Active fluticasone (Flonase) 50 MCG/ACT nasal spray [place] 1 spray every day by intranasal route [...] 2014 UKY-Zoster Vaccines (1 of 2) 2014 [id number] Vaccine (3 - Moderna risk series) 08/06/2020 [...] this topic Medical Devices Implanted Type Area Leader Writer Device Identifier Shelf Expiration Date Model / Serial / Lot Medtronic Spinal Cord Stimulator-10/31 Implanted:10/31 (Quantity not on file) Spinal Cord Stimulator Back Medtronic [id number] / / Description:MEDTR[employer]IC SCS LE AD MODEL: [id number], implant date 11/19/2023 Procedures Procedure Name Priority [...] Adults <6.0% Children and Adolescents <7.5% Source: [place] [employer]. Standards of medical care in diabetes,2017. Diabetes Care.2017:40 (suppl 1):S1-S135. HbA1c assay performed by an ion-exchange chromatography method that is certified traceable to the DCCT. Emanuel Tadeo MD LAB BLOOD ORDERABLES Final Result [facility] [address] [place] [phone] from Last 3 Months or Most Recently Relevant to Health Maintenance Insurance MEDICARE ANTHEM Care Teams Mule Packer Relationship Specialty Start Date End Date Saima Dorman APRN [address] [place] [address] PCP - General 07/12/20
--- OUTSIDE RECORDS SUMMARY | 2024-11-03 14:07 | XMS_ITS | Encounter Summary ---
Author Organization [facility] Address [address] [place] [address] Care Team Providers Care Termite Treater Name Role Phone Saima Dorman CHRISTI Primary Care Provider +1- [phone] Encounter Details Date Type Department Care Team (Late st Contact Info) Description 07/19/2024 Results [facility]-Up [place] [facility] Medicine Specialties [address] [place] [address] Quin Levy MD [address] [place] [address] Social History Tobacco Use Types [...] documented as of this encounter Care Teams Termite Treater Relationship Specialty Start Date End Date Saima Dorman APRN [address] [place] [address] PCP - General 07/12/20 documented as of this encounter
--- OUTSIDE RECORDS SUMMARY | 2024-11-03 14:07 | XMS_ITS | Encounter Summary ---
Author Organization [facility] Address [address] [place] [address] Care Team Providers Care Mortar Mixer Operator Name Role Phone DandyAnnieyair Persaud APRN Primary Care Provider +1- [phone] Reason for Referral * Consultation (Routine) - Closed Specialty Diagnoses / Procedures Referred By Jordan watson Referred To Contact Gastroenterology Diagnoses Abnormal CT scan, liver Fatty liver Karolyn Ramos PA [address] [facility] [address] [place] [address] Phone: tel: fax: Referral ID Status Reason Start Date Expiration Date V isits Requested Visits Authorized [id number] Closed Specialty Services Required 01/18/2023 07/19/2024 1 1 Encounter Details Date Type Department Care Team (Late st Contact Info) Description 01/18/2023 [facility] [address] [place] [address] Karolyn Ramos PA [address] [place] [address] scan, liver (Primary [...] documented as of this encounter Care Teams Mortar Mixer Operator Relationship Specialty Start Date End Date Saima Dorman APRN [address] [place] [address] PCP - General 07/12/20 documented as of this encounter
--- NOTE | 2024-11-03 14:17 | XR_ITS ---
FINAL REPORT CLINICAL HISTORY: shortness of breath COMPARISON: 09/19/2021 FINDINGS: PA and lateral views of the chest were obtained. The mediastinal silhouettes is within normal limits. Mild cardiomegaly is present. A right middle lobe opacity is present, atelectasis or pneumonia. There is no pleural effusion or pneumothorax. No acute osseous abnormality is identified. IMPRESSION: Right middle lobe opacity, atelectasis versus pneumonia. Mild cardiomegaly. Reviewed, Interpreted and Dictated by Kelly Eduardo MD Transcribed by Sowmya Hernández Authenticated and [facility]
[2024-11-03 15:03] LABS: Hematocrit 40.3 % (37.0-47.0); Hemoglobin 13.1 g/dL (12.2-16.2); Immature Granulocytes % 1.6 %; Mean Corpuscular HGB Conc 32.5 g/dL (31.8-35.4); Mean Corpuscular Hemoglobin 28.4 pg (27.0-31.2); Mean Corpuscular Volume 87.2 fl (81-99); Nucleated Red Blood Cells % 0 %; Platelet Count 320 K/mm3 (142-424); Red Blood Count 4.62 M/mm3 (4.20-5.40); Red Cell Distribution Width-SD 46.0 fL; White Blood Count 9.0 K/mm3 (4.8-10.8)
[2024-11-03 16:22] LABS: NT Pro Brain Natriuretic Pep. 1420 pg/mL (0-125)
[2024-11-03 16:59] LABS: Coronavirus 19, PCR Not Detected (NotDetected); Influenza A, PCR Not Detected (NotDetected); Influenza B, PCR Not Detected (NotDetected)
== END 2024-11-03 23:59 | disposition home or self-care (01) ==
LOC: LAB 14:05
PROVIDERS: PCP Nurse Practitioner Family; Visit Provider Nurse Practitioner Family
DX: R06.02 Shortness of breath (principal)
CPT/HCPCS: 36415; 71046; 83880; 85025; 87631

== ENCOUNTER 2024-11-06 11:34 | Outpatient (CLI) | payer BC, SELFPAY ==
--- OUTSIDE RECORDS SUMMARY | 2024-11-06 11:38 | XMS_ITS | Encounter Summary ---
Author Organization Healthcare Address [address] [place] [address] Care Team Providers Care Telephoto Engineer Name Role Phone DandyAnnieyair Persaud APRN Primary Care Provider +1- [phone] Reason for Referral * Consultation (Routine) - Closed Specialty Diagnoses / Procedures Referred By Jordan watson Referred To Contact Gastroenterology Diagnoses Abnormal CT scan, liver Fatty liver Karolyn Ramos PA [address] [facility] [address] [place] [address] Phone: tel: fax: Referral ID Status Reason Start Date Expiration Date V isits Requested Visits Authorized [id number] Closed Specialty Services Required 01/18/2023 07/19/2024 1 1 Encounter Details Date Type Department Care Team (Late st Contact Info) Description 01/18/2023 Community [facility] Community Practice [address] [place] [address] Karolyn Ramos PA [address] [place] [address] scan, liver (Primary [...] documented as of this encounter Care Teams Telephoto Engineer Relationship Specialty Start Date End Date Saima Dorman APRN [address] [place] [address] PCP - General 07/12/20 documented as of this encounter
--- OUTSIDE RECORDS SUMMARY | 2024-11-06 11:38 | XMS_ITS | Encounter Summary ---
Author Organization Healthcare Address [address] [place] [address] Care Team Providers Care Regional Hr Manager Name Role Phone Saima Dorman CHRISTI Primary Care Provider +1- [phone] Encounter Details Date Type Department Care Team (Late st Contact Info) Description 07/19/2024 Results [facility] [address], [address] [place] [address] Quin Levy MD [address] [place] [address] Social History Tobacco Use Types [...] documented as of this encounter Care Teams Regional Hr Manager Relationship Specialty Start Date End Date Saima Dorman APRN [address] [place] [address] PCP - General 07/12/20 documented as of this encounter
--- OUTSIDE RECORDS SUMMARY | 2024-11-06 11:38 | XMS_ITS | Clinical Summary ---
Author Organization [facility] Address [address] [place] [address] Care Team Providers Care Manager Beverage Name Role Phone Unavailable Primary Care Provider [...] 2023- season) 2024 INFLUENZA VACCINE 11/29/2024 Insurance [facility] PPO
--- OUTSIDE RECORDS SUMMARY | 2024-11-06 11:38 | XMS_ITS | Clinical Summary ---
Author Organization Healthcare Address [address] [place] [address] Care Team Providers Care Mud Analysis Operator Name Role Phone Saima Dorman CHRISTI Primary Care Provider +1- [phone] Allergies Active Allergy Reactions Criticality Noted Date [...] (one) time each day. Active HYDROcodone-aceta minophen ([place]) 7.5-325 MG tablet 2 Active methylPREDNISolon e (Medrol Dospak) 4 MG tablets 2 Active pregabalin (Lyrica) 150 MG capsule 2 Active hydrocortisone (Cortef) 10 MG tabletIndications :Adrenal insufficiency (Davis's disease) (CMS/HCC) Take 1 tablet (10 mg [...] Active fluticasone (Flonase) 50 MCG/ACT nasal spray [place] 1 spray every day by intranasal route [...] 2014 UKY-Zoster Vaccines (1 of 2) 2014 [id number] Vaccine (3 - Moderna risk series) 08/06/2020 [...] this topic Medical Devices Implanted Type Area Business Rules Developer Device Identifier Shelf Expiration Date Model / Serial / Lot Medtronic Spinal Cord Stimulator-10/31 Implanted:10/31 (Quantity not on file) Spinal Cord Stimulator Back Medtronic [id number] / / Description:MEDTRONIC SCS LE AD MODEL: [id number], implant date 11/19/2023 Procedures Procedure Name Priority [...] Adults <6.0% Children and Adolescents <7.5% Source: [place] Diabetes Association. Standards of medical care in diabetes,2017. Diabetes Care.2017:40 (suppl 1):S1-S135. HbA1c assay performed by an ion-exchange chromatography method that is certified traceable to the DCCT. Emanuel Tadeo MD LAB BLOOD ORDERABLES Final Result [facility] [address] [place] [phone] from Last 3 Months or Most Recently Relevant to Health Maintenance Insurance MEDICARE ANTHEM Care Teams Mud Analysis Operator Relationship Specialty Start Date End Date Saima Dorman APRN [address] [place] [address] PCP - General 07/12/20
[2024-11-06 12:27] LABS: Hematocrit 43.0 % (37.0-47.0); Hemoglobin 14.0 g/dL (12.2-16.2); Immature Granulocytes % 0.7 %; Mean Corpuscular HGB Conc 32.6 g/dL (31.8-35.4); Mean Corpuscular Hemoglobin 28.3 pg (27.0-31.2); Mean Corpuscular Volume 87.0 fl (81-99); Nucleated Red Blood Cells % 0 %; Platelet Count 347 K/mm3 (142-424); Red Blood Count 4.94 M/mm3 (4.20-5.40); Red Cell Distribution Width-SD 47.2 fL; White Blood Count 10.3 K/mm3 (4.8-10.8)
[2024-11-06 12:32] LABS: Chloride 104 mmol/L (98-107); Sodium 140 mmol/L (136-145)
[2024-11-06 12:33] LABS: Potassium 4.3 mmoL/L (3.5-5.1)
[2024-11-06 12:36] LABS: Anion Gap 13.3 mEq/L (5-15); Blood Urea Nitrogen 23 mg/dl (7-17); Calcium 9.5 mg/dl (8.4-10.2); Carbon Dioxide 27 mmol/L (22.0-30.0); Creatinine,Serum 1.00 mg/dl (0.52-1.04); Estimated Glomerular Filt Rate 57 ml/min (>60); GFR (African American) 68 ML/MIN (>60); Glucose 102 mg/dl (74-100)
== END 2024-11-06 23:59 | disposition home or self-care (01) ==
LOC: LAB 11:35
PROVIDERS: PCP Nurse Practitioner Family; Visit Provider Nurse Practitioner
DX: I25.10 Atherosclerotic heart disease of native coronary artery without angina pectoris (principal); I10 Essential (primary) hypertension
CPT/HCPCS: 36415; 80048; 85025

== ENCOUNTER 2024-11-10 14:14 | Outpatient (CLI) | payer BC, SELFPAY ==
--- NOTE | 2024-11-10 14:18 | XR_ITS ---
FINAL REPORT CLINICAL HISTORY: pneumonia, shortness of breath COMPARISON: 11/03/2024 FINDINGS: 2 views of the chest were obtained . The heart is enlarged but stable. The mediastinum is within normal limits. There is mild improvement of bibasilar pneumonia, right greater than left. There is no pleural effusion. There is no pneumothorax. Osseous structures are unremarkable. IMPRESSION: Mild improvement of bibasilar pneumonia. Reviewed, Interpreted and Dictated by Leonela Black MD Transcribed by Ella Downing Authenticated and [facility]
--- OUTSIDE RECORDS SUMMARY | 2024-11-10 14:18 | XMS_ITS | Encounter Summary ---
Author Organization Healthcare Address [address] [place] [address] Care Team Providers Care Motorized Squad Captain Name Role Phone DandyAnnieyair Persaud APRN Primary Care Provider +1- [phone] Reason for Referral * Consultation (Routine) - Closed Specialty Diagnoses / Procedures Referred By Jordan watson Referred To Contact Gastroenterology Diagnoses Abnormal CT scan, liver Fatty liver Karolyn Ramos PA [address] [facility] [address] [place] [address] Phone: tel: fax: Referral ID Status Reason Start Date Expiration Date V isits Requested Visits Authorized [id number] Closed Specialty Services Required 01/18/2023 07/19/2024 1 1 Encounter Details Date Type Department Care Team (Late st Contact Info) Description 01/18/2023 Community [facility] [address] [place] [address] Karolyn Ramos PA [address] [place] [address] scan, liver (Primary [...] documented as of this encounter Care Teams Motorized Squad Captain Relationship Specialty Start Date End Date Saima Dorman APRN [address] [place] [address] PCP - General 07/12/20 documented as of this encounter
--- OUTSIDE RECORDS SUMMARY | 2024-11-10 14:18 | XMS_ITS | Encounter Summary ---
Author Organization [employer] ([place], [place], [place], [place]) Address [address] [place] [address] Care Team Providers Care Transit Operator Name Role Phone Saima Dorman APRN Primary Care Provider [phone] Encounter Details Date Type Department Care Team (Late st Contact Info) Description 01/22/2019 Transcribed Document [facility] [place] Family Medicine [address] [place] [address] ProviderKarena MD [address] [place], [place] [address] Social History Tobacco Use Types Packs/Day Years Used Date Smoking Tobacco: Never Assessed Comments Unknown Sex and Gender Information Value Date Recorded Sex Assigned at Not on file Legal Sex Female 5:23 PM CDT Gender Identity Not on file Sexual Orientation Not on file documented as of this encounter Miscellaneous Notes * Cerner Conversion Note - Karena Ashby MD - 01/22/2019 9:15 PM CONSOLIDATION ACCOUNTANT Orthopedic Nurse Navigator Entered On: 01/23/2019 14:00 EST Performed On: 01/22/2019 21:15 EST by Vandana Chun Nurse blanching machine operator Nurse Navigator Assessment Attended [employer] : [...] on filedocumented in this encounter Care Teams Transit Operator Relationship Specialty Start Date End Date Saima Dorman, [place] [address] [place] [address] PCP - General Nurse Practitioner 12/26/21 documented as of this encounter
--- OUTSIDE RECORDS SUMMARY | 2024-11-10 14:18 | XMS_ITS | Encounter Summary ---
Author Organization [employer] ([place], [place], [place], [place]) Address [address] [place] [address] Care Team Providers Care Doweling Machine Operator Name Role Phone Saima Dorman APRN Primary Care Provider Reason for Referral * Flouroscopy (Routine) - Closed Specialty Diagnoses / Procedures Referred By Contac t Referred To Contact Diagnoses Chronic respiratory failure with hypoxia (HCC) Procedures FL sniff test Leanne Pearl PA-C [address] [address] Phone: tel: fax: Referral ID Status Reason Start Date Expiration Date Visits Re quested Visits Authorized [id number] Closed 11/11/2023 11/10/2024 1 1 Encounter Details Date Type Department Care Team (Late st Contact Info) Description 11/11/2023 Outside Orders [facility] Central Scheduling [address] [place] [address] Leanne Pearl PA-C [address] [address] Chronic respiratory failure with hypoxia [...] Date Juventino rded Speak language other than Irish at home Not on file 03/18/2023 Want [...] (HCC) documented in this encounter Care Teams Doweling Machine Operator Relationship Specialty Start Date End Date DormanSaima patelCHRISTI [address] [address] PCP - General Nurse Practitioner 12/26/21 documented as of this encounter
--- OUTSIDE RECORDS SUMMARY | 2024-11-10 14:18 | XMS_ITS | Clinical Summary ---
Author Organization Healthcare Address [address] [place] [address] Care Team Providers Care State Comptroller Name Role Phone Saima Dorman CHRISTI Primary Care Provider +1- [phone] Allergies Active Allergy Reactions Criticality Noted Date [...] (one) time each day. Active HYDROcodone-aceta minophen ([place]) 7.5-325 MG tablet 2 Active methylPREDNISolon e (Medrol Dospak) 4 MG tablets 2 Active pregabalin (Lyrica) 150 MG capsule 2 Active hydrocortisone (Cortef) 10 MG tabletIndications :Adrenal insufficiency ([place]'s disease) (CMS/HCC) Take 1 tablet (10 mg [...] Active fluticasone (Flonase) 50 MCG/ACT nasal spray [place] 1 spray every day by intranasal route [...] 2014 UKY-Zoster Vaccines (1 of 2) 2014 [id number] Vaccine (3 - Moderna risk series) 08/06/2020 [...] this topic Medical Devices Implanted Type Area Validation Intern Device Identifier Shelf Expiration Date Model / Serial / Lot Medtronic Spinal Cord Stimulator-10/31 Implanted:10/31 (Quantity not on file) Spinal Cord Stimulator Back Medtronic [id number] / / Description:MEDTRONIC SCS LE AD MODEL: [id number], implant date 11/19/2023 Procedures Procedure Name Priority [...] Adults <6.0% Children and Adolescents <7.5% Source: [place] Diabetes Association. Standards of medical care in diabetes,2017. Diabetes Care.2017:40 (suppl 1):S1-S135. HbA1c assay performed by an ion-exchange chromatography method that is certified traceable to the DCCT. Emanuel Tadeo MD LAB BLOOD ORDERABLES Final Result [facility] [address] [place] [phone] from Last 3 Months or Most Recently Relevant to Health Maintenance Insurance MEDICARE ANTHEM Care Teams State Comptroller Relationship Specialty Start Date End Date Saima Dorman APRN [address] [place] [address] PCP - General 07/12/20
--- OUTSIDE RECORDS SUMMARY | 2024-11-10 14:18 | XMS_ITS | Encounter Summary ---
Author Organization Healthcare Address [address] [place] [address] Care Team Providers Care Pharmacovigilance Safety Expert Name Role Phone Saima Dorman CHRISTI Primary Care Provider +1- [phone] Encounter Details Date Type Department Care Team (Late st Contact Info) Description 07/19/2024 Results [facility] [address] [place] [address] Quin Levy MD [address] [place] [address] Social History Tobacco Use Types [...] documented as of this encounter Care Teams Pharmacovigilance Safety Expert Relationship Specialty Start Date End Date Saima Dorman APRN [address] [place] [address] PCP - General 07/12/20 documented as of this encounter
--- OUTSIDE RECORDS SUMMARY | 2024-11-10 14:18 | XMS_ITS | Clinical Summary ---
Author Organization [employer] ([place], [place], [place], [place]) Address [address] [place] [address] Care Team Providers Care Data Analytics Specialist Name Role Phone Saima Dorman APRN [...] Date Juventino rded Speak language other than Russian at home Not on file 03/18/2023 Want [...] Shingles Vaccine (Zoster) (1 of 2) 2014 Tobacco Cessation Counseling and Screening (12+) 01/08/2024 01/07/2023 COVID-19 VACCINE (3 - season) 10/30/202412/2020, 06/10/2020 Influenza Vaccine (#1) 2024 01/16/2022 Lipid Panel [...] 12:13 PM EDT Performed at: 01 - [address] [id number] Copy Director: Abner Diaz PhD, Phone: [phone] Kayley Whitaker MD LAB BLOOD ORDERABLES Final R esult [facility] * Hepatitis C Virus Ab w/Rflx to HCV NAAT(SENDOUT) (07/03/2022 1:21 PM EDT) Pathologist [facility] Hepatitis C Antibody by SENG Interp Negative Negative 07/05/2022 10:57 AM EDT [email or web address] Comment: Based on the anti-HCV (SENG) screen, [...] Index 0.04 IV 07/05/2022 10:57 AM EDT [email or web address] Comment: Performed by [facility], [address] [place] [id number] [email or web address], Carson Jay MD, PHD, Lab. Director Blood Venipuncture / Unknown 07/03/2022 1:21 PM EDT 07/03/2022 1:28 PM EDT Karolyn Ramos PA-C LAB BLOOD ORDERABLES Final Re sult [place] [address], [facility] [phone] from Last 3 Months or Most Recently Relevant to Health Maintenance Insurance [employer] CHOICE PPO BLUE CROSS/BLUE SHIELD Advance Directives For more information, please contact: [phone] * Full Code (Latest Code Status on File) Date Activated Date Inactivated Comments 04/29/2022 9:21 AM 04/29/2022 1:52 PM -Attempt Resus citation if person has no pulse and is not breathing. -If no pulse or not breathing attempt CPR/CODE. -Call Rapid Response if patient is in distress. Care Teams Data Analytics Specialist Relationship Specialty Start Date End Date Saima Dorman, SKATE SHOP ATTENDANT [address] [place] [address] PCP - General Nurse Practitioner 12/26/21
--- OUTSIDE RECORDS SUMMARY | 2024-11-10 14:18 | XMS_ITS | Referral Summary ---
Author Organization [employer] ([place], [place], [place], [place]) Address [address] [place] [address] Care Team Providers Care Train Operations Manager Name Role Phone Saima Dorman APRN [...] 09/23/2022 12:13 PM EDT Performed at: - [address] [id number] Rabbet Operator: Abner Diaz PhD, Phone: [phone] us Kayley Whitaker MD LAB BLOOD ORDERABLES Final R esult [facility] * Hepatitis C Virus Ab w/Rflx to HCV NAAT(SENDOUT) (07/03/2022 1:21 PM EDT) Hepatitis C Antibody by SENG Interp Negative Negative 07/05/2022 10:57 AM EDT [facility] Comment: Based on the anti-HCV (SENG) screen, the HCV RNA by Quantitative NAAT test is not indicated and therefore not performed. INTERPRETIVE INFORMATION: Hepatitis C Virus Antibody by SNEG Index: 0.79 IV or less .................. Negative [...] Index 0.04 IV 07/05/2022 10:57 AM EDT [facility] Comment: Performed by [facility], [address] [place] [address] [email or web address], Carson Jay MD, PHD, Lab. Director Blood Venipuncture / Unknown 07/03/2022 1:21 PM EDT 07/03/2022 1:28 PM EDT Karolyn Ramos PA-C LAB BLOOD ORDERABLES Final Re sult [facility] [address] [place] [address], [facility] [phone] from Last 3 Months or Most Recently Relevant to Health Maintenance Insurance [employer]MA[employer] CHOICE PPO BLUE CROSS/BLUE SHIELD Advance Directives For more information, please contact: [phone] * Full Code (Latest Code Status on File) Date Activated Date Inactivated Comments 04/29/2022 9:21 AM 04/29/2022 1:52 PM -Attempt Resus citation if person has no pulse and is not breathing. -If no pulse or not breathing attempt CPR/CODE. -Call Rapid Response if patient is in distress. Care Teams Train Operations Manager Relationship Specialty Start Date End Date Saima Dorman APRN [address] [place] [address] PCP - General Nurse Practitioner 12/26/21
--- OUTSIDE RECORDS SUMMARY | 2024-11-10 14:18 | XMS_ITS | Clinical Summary ---
Author Organization [facility] Address [address] [place] [address] Care Team Providers Care Social Services Technician Name Role Phone Unavailable Primary Care [...] 2023- season) 2024 INFLUENZA VACCINE 11/29/[address] [facility] PPO
[2024-11-10 16:09] LABS: Alanine Aminotransferase 27 U/L (12-78); Albumin Level 4.7 g/dl (3.5-5.0); Albumin/Globulin Ratio 1.7 (1.1-1.8); Alkaline Phosphatase 141 U/L (38-126); Anion Gap 16.2 mEq/L (5-15); Aspartate Amino Transferase 38 U/L (14-36); Bilirubin,Total 0.6 mg/dl (0.2-1.3); Blood Urea Nitrogen 23 mg/dl (7-17); Calcium 9.7 mg/dl (8.4-10.2); Carbon Dioxide 26 mmol/L (22.0-30.0); Chloride 100 mmol/L (98-107); Creatinine,Serum 1.00 mg/dl (0.52-1.04); Estimated Glomerular Filt Rate 57 ml/min (>60); GFR (African American) 68 ML/MIN (>60); Globulin 2.7 g/dL (1.3-3.2); Glucose 101 mg/dl (74-100); Magnesium 2.1 mg/dl (1.6-2.3); Potassium 4.2 mmoL/L (3.5-5.1); Sodium 138 mmol/L (136-145); Total Protein,Serum 7.4 g/dl (6.3-8.2)
[2024-11-10 16:19] LABS: NT Pro Brain Natriuretic Pep. 37.8 pg/mL (0-125)
== END 2024-11-10 23:59 | disposition home or self-care (01) ==
LOC: LAB 14:15
PROVIDERS: PCP Nurse Practitioner Family; Visit Provider Nurse Practitioner Family
DX: E87.70 Fluid overload, unspecified (principal); R06.02 Shortness of breath; M79.10 Myalgia, unspecified site
CPT/HCPCS: 36415; 71046; 80053; 83735; 83880

== ENCOUNTER 2024-11-13 07:56 | Day surgery (SDC) | payer BC, SELFPAY ==
[2024-11-13] VITALS (12 sets, daily range): BP systolic 94–128; BP diastolic 49–70; PULSE 71–87; RESP 18–20; O2SAT 88–98; BMI 41.4
--- NOTE | 2024-11-13 06:58 | IR_ITS ---
APPROVED REPORT Patient Location: Outpatient Certified Physical Therapist Assistant: JUAN Licea RT (R) PROCEDURES Left heart catheterization Left ventriculogram Selective coronary angiogram Informed consent was obtained prior to the procedure. COMPLICATIONS NONE Estimated Blood Loss: LESS THAN 10 ML TECHNIQUE One percent lidocaine used to anesthetize the right anterior aspect of the wrist. The right radial artery was accessed via the Seldinger technique. A 6 Armenian sheath was placed in the right radial artery. 2.5 mg of Verapamil, 800 mcg of nitroglycerin, 1mg Lidocaine and 5000 U Heparin were given through the arterial sheath. Ascending aortic access cannot be achieved therefore the right groin was prepped for angiography. One percent lidocaine was used to anesthetize the right groin. The right femoral artery was accessed via the Seldinger technique. A 4-Armenian sheath was placed in the right femoral artery. The JL-4 and JR-4 catheter was also used to perform left heart catheterization left ventriculogram and selective coronary angiogram. At the end of the procedure the patient was transferred to the post-op holding area in stable condition for arterial sheath removal.. At the end of the procedure the sheath was removed good hemostasis was achieved using Traclet band, patient was transferred to the postop holding area in stable condition. ANGIOGRAPHIC RESULTS The left main artery Has a smooth ostial 10 to 20% stenosis The left anterior descending artery Has a stent in the proximal to mid segment which is widely patent with mild concentric in-stent restenosis nothing greater than 30%. The mid LAD has smooth 20 to 30% stenosis. A first diagonal artery has an ostial 60% stenosis with the vessel being 1.5 mm in diameter The circumflex artery Nondominant and normal The right coronary artery Dominant with mid vessel 30% concentric stenoses and distal 30% stenosis. There is additional 30 and 40% stenosis in the posterior lateral branch which is large and multi branching The CANTRELL ventriculogram reveals Hyperdynamic 70 to 75% The left ventricular end-diastolic pressure 15 to 20 mmHg IMPRESSION Coronary artery disease as described above Mildly elevated LVEDP Hyperdynamic ventricle PLAN 1. Medical management with risk factor modification Electronically signed by : Alejandro Modi MD 11/13/2024 10:17:09
[2024-11-13] MEDS: NITROGLYCERIN 800MCG/8ML SYR (CATH LAB) 800 MCG IA (08:49)
[2024-11-13] MEDS: 0.9 % SODIUM CHLORIDE 500 ML 25 ML IV (08:49)
[2024-11-13] MEDS: HEPARIN 1,000 UNITS/ML 10ML VIAL (CATH LAB) 5000 UNIT IV (08:50)
[2024-11-13] MEDS: VERAPAMIL 2.5MG/ML 2ML VIAL 2.5 MG IV (08:50)
[2024-11-13] MEDS: LIDOCAINE 1% 10ML MDV 10 ML IJ (08:50)
[2024-11-13] MEDS: HEPARIN 1,000 UNITS/500ML NS (CATH LAB) 3000 UNIT IV (08:50)
[2024-11-13] MEDS: FENTANYL 100MCG/2ML VIAL 50 MCG IV (09:06)
[2024-11-13] MEDS: MIDAZOLAM HCL 1MG/ML 5ML VIAL 1 MG IV (09:07)
[2024-11-13] MEDS: IOPAMIDOL-370 (76%);100ML BOTTLE 50 ML IV (13:14)
== END 2024-11-13 12:32 | disposition home or self-care (01) ==
PROVIDERS: PCP Nurse Practitioner Family; Visit Provider Internal Medicine
PROC: 4A023N7 Measurement of Cardiac Sampling and Pressure, Left Heart, Percutaneous Approach (ICD-10-PCS; CPT 93452; principal; 2024-11-13 09:45)
DX: Z01.810 Encounter for preprocedural cardiovascular examination (principal); I25.119 Atherosclerotic heart disease of native coronary artery with unspecified angina pectoris; R94.31 Abnormal electrocardiogram [ECG] [EKG]; E11.9 Type 2 diabetes mellitus without complications; R06.02 Shortness of breath; E78.2 Mixed hyperlipidemia; I50.32 Chronic diastolic (congestive) heart failure; I11.0 Hypertensive heart disease with heart failure; G47.33 Obstructive sleep apnea (adult) (pediatric); E66.01 Morbid (severe) obesity due to excess calories; Z68.41 Body mass index [BMI] 40.0-44.9, adult; K21.9 Gastro-esophageal reflux disease without esophagitis; I25.2 Old myocardial infarction; Z96.653 Presence of artificial knee joint, bilateral; Z77.22 Contact with and (suspected) exposure to environmental tobacco smoke (acute) (chronic); Z79.84 Long term (current) use of oral hypoglycemic drugs; Z79.1 Long term (current) use of non-steroidal anti-inflammatories (NSAID); Z79.51 Long term (current) use of inhaled steroids; Z79.52 Long term (current) use of systemic steroids; Z79.2 Long term (current) use of antibiotics; Z79.899 Other long term (current) drug therapy; Z79.82 Long term (current) use of aspirin; Z95.5 Presence of coronary angioplasty implant and graft; Z88.0 Allergy status to penicillin; Z82.49 Family history of ischemic heart disease and other diseases of the circulatory system
CPT/HCPCS: 93458; 99152; C1725; C1760; C1769; J1200; J1644; J2003; J3010; J7040; Q9967

== ENCOUNTER 2024-11-27 11:02 | Outpatient (CLI) | payer BC, SELFPAY ==
--- NOTE | 2024-11-27 11:04 | XR_ITS ---
FINAL REPORT TECHNIQUE: Chest PA & Lateral CLINICAL HISTORY: f/u pneumonia COMPARISON: 11/10/2024 FINDINGS: 2 views of the chest were performed. Mild cardiomegaly is present. The mediastinum is within normal limits. A stimulator lead is seen in the lower thoracic spine. There is no acute cardiopulmonary process. Scarring is present in the lung bases. There are no pleural effusions. There is no pneumothorax. The bony thorax appears intact. IMPRESSION: No acute cardiopulmonary process. Reviewed, Interpreted and Dictated by Fito Dillon MD Transcribed by Sowmya Hernández Authenticated and [facility]
--- OUTSIDE RECORDS SUMMARY | 2024-11-27 11:10 | XMS_ITS | Encounter Summary ---
Author Organization [employer] ([place], [place], [place], [place]) Address [address] [place] [address] Care Team Providers Care Fishing Gear Mechanic Name Role Phone Saima Dorman APRN Primary Care Provider Reason for Referral * Flouroscopy (Routine) - Closed Specialty Diagnoses / Procedures Referred By Contac t Referred To Contact Diagnoses Chronic respiratory failure with hypoxia (HCC) Procedures FL sniff test Leanne Pearl PA-C [address] [address] Phone: tel: fax: Referral ID Status Reason Start Date Expiration Date Visits Re quested Visits Authorized [id number] Closed 11/11/2023 11/10/2024 1 1 Encounter Details Date Type Department Care Team (Late st Contact Info) Description 11/11/[address] [facility] Central Scheduling [address] [place] [address] Leanne Pearl PA-C [address] [address] Chronic respiratory failure with hypoxia [...] Date Juventino rded Speak language other than Welsh at home Not on file 03/18/2023 Want [...] (HCC) documented in this encounter Care Teams Fishing Gear Mechanic Relationship Specialty Start Date End Date DormanSaima patelCHRISTI [address] [address] PCP - General Nurse Practitioner 12/26/21 documented as of this encounter
--- OUTSIDE RECORDS SUMMARY | 2024-11-27 11:11 | XMS_ITS | Clinical Summary ---
Author Organization Healthcare Address [address] [place] [address] Care Team Providers Care Cold Strip Roller Name Role Phone Saima Dorman CHRISTI Primary Care Provider +1- [phone] Allergies Active Allergy Reactions Criticality Noted Date [...] (one) time each day. Active HYDROcodone-aceta minophen ([place]) 7.5-325 MG tablet 2 Active methylPREDNISolon e (Medrol Dospak) 4 MG tablets 2 Active pregabalin (Lyrica) 150 MG capsule 2 Active hydrocortisone (Cortef) 10 MG tabletIndications :Adrenal insufficiency ([place]'s disease) Take 1 tablet (10 mg total) by [...] Active fluticasone (Flonase) 50 MCG/ACT nasal spray [place] 1 spray every day by intranasal route [...] 2014 UKY-Zoster Vaccines (1 of 2) 2014 [id number] Vaccine (3 - Moderna risk series) 08/06/2020 [...] this topic Medical Devices Implanted Type Area Grant Specialist Device Identifier Shelf Expiration Date Model / Serial / Lot Medtronic Spinal Cord Stimulator-10/31 Implanted:10/31 (Quantity not on file) Spinal Cord Stimulator Back Medtronic [id number] / / Description:MEDTRONIC SCS LE AD MODEL: [id number], implant date 11/19/2023 Procedures Procedure Name Priority [...] Adults <6.0% Children and Adolescents <7.5% Source: [place] Diabetes Association. Standards of medical care in diabetes,2017. Diabetes Care.2017:40 (suppl 1):S1-S135. HbA1c assay performed by an ion-exchange chromatography method that is certified traceable to the DCCT. Emanuel Tadeo MD LAB BLOOD ORDERABLES Final Result [facility] [address] [place] [phone] from Last 3 Months or Most Recently Relevant to Health Maintenance Insurance MEDICARE ANTHEM Care Teams Cold Strip Roller Relationship Specialty Start Date End Date Saima Dorman APRN [address] [place] [address] PCP - General 07/12/20
--- OUTSIDE RECORDS SUMMARY | 2024-11-27 11:11 | XMS_ITS | Referral Summary ---
Author Organization [employer] ([place], [place], [place], [place]) Address [address] [place] [address] Care Team Providers Care Oracle Ebs Developer Name Role Phone Saima Dorman APRN [...] 0 03/18/2023 Family and Community Support Answer Tde e Recorded Help with Day to Day [...] 09/23/2022 12:13 PM EDT Performed at: - [address] [id number] Merchandise Pickup/Receiving Associate: Abner Diaz PhD, Phone: [phone] us Kayley Whitaker MD LAB BLOOD ORDERABLES Final R esult [facility] * Hepatitis C Virus Ab w/Rflx to HCV NAAT(SENDOUT) (07/03/2022 1:21 PM EDT) Hepatitis C Antibody by SENG Interp Negative Negative 07/05/2022 10:57 AM EDT [facility] Comment: Based on the anti-HCV (SENG) [...] Index 0.04 IV 07/05/2022 10:57 AM EDT [facility] Anywhere Comment: Performed by [facility], [address] [place] [address] [email or web address], Carson Jay MD, PHD, Lab. Director Blood Venipuncture / Unknown 07/03/2022 1:21 PM EDT 07/03/2022 1:28 PM EDT Karolyn Ramos PA-C LAB BLOOD ORDERABLES Final Re sult [facility] | Anywhere [address] [place] [address], [facility] [phone] from Last 3 Months or Most Recently Relevant to Health Maintenance Insurance HU[employer]NA CHOICE PPO BLUE CROSS/BLUE SHIELD Advance Directives For more information, please contact: [phone] * Full Code (Latest Code Status on File) Date Activated Date Inactivated Comments 04/29/2022 9:21 AM 04/29/2022 1:52 PM -Attempt Resus citation if person has no pulse and is not breathing. -If no pulse or not breathing attempt CPR/CODE. -Call Rapid Response if patient is in distress. Care Teams Oracle Ebs Developer Relationship Specialty Start Date End Date Saima Dorman APRN [address] [place] [address] PCP - General Nurse Practitioner 12/26/21"
--- OUTSIDE RECORDS SUMMARY | 2024-11-27 11:11 | XMS_ITS | Encounter Summary ---
Author Organization [employer] ([place], [place], [place], [place]) Address [address] [place] [address] Care Team Providers Care Paradichlorobenzene Tender Name Role Phone Saima Dorman APRN Primary Care Provider Encounter Details Date Type Department Care Team (Late st Contact Info) Description 01/22/2019 Transcribed Document [facility] [place] [facility] [address] [place] [address] ProviderKarena MD [address], [place] [id number] Social History Tobacco Use Types Packs/Day Years Used Date Smoking Tobacco: Never Assessed Comments Unknown Sex and Gender Information Value Date Recorded Sex Assigned at Not on file Legal Sex Female 5:23 PM CDT Gender Identity Not on file Sexual Orientation Not on file documented as of this encounter Miscellaneous Notes * Cerner Conversion Note - Karena Ashby MD - 01/22/2019 9:15 PM CUSTOMER MANAGEMENT SPECIALIST Orthopedic Nurse Navigator Entered On: 01/23/2019 14:00 EST Performed On: 01/22/2019 21:15 EST by Vandana Chun Nurse behavioral instructor Nurse Navigator Assessment Attended Joint Academy : Yes Joint AcademyType : Online Joint Academy Date : 01/22/2019 EST Type of Surgery : Total Knee Replacement, Left Joint Navigator Assessment Note : Patient viewed the online version of Joint Academy prior to surgery. Vandana Chun Nurse RN - 01/23/2019 13:59 EST Electronically signed by Jameel Wilson Conversion Natural Gas Field Processing Supervisor Cerner at 06/16/2022 11:04 AM CDT documented in this encounter Plan of Treatment Not on file documented as of this encounter Visit Diagnoses Not on filedocumented in this encounter Care Teams Paradichlorobenzene Tender Relationship Specialty Start Date End Date Saima Dorman, MARKETING PROGRAM MANAGER [address] [place] [address] PCP - General Nurse Practitioner 12/26/21 documented as of this encounter
--- OUTSIDE RECORDS SUMMARY | 2024-11-27 11:11 | XMS_ITS ---
Care Plan - [facility] Created on: November 27, 2024 Moraima Loya : 1965 Sex: Female Author Organization [facility] Address [address] [place] [address] Phone Care Team Providers Care Microarray Operations Vice President Name Role Phone YESSICA DE DIOS Unavailable [phone] David Toussaint MD Unavailable [phone]
--- OUTSIDE RECORDS SUMMARY | 2024-11-27 11:11 | XMS_ITS | Clinical Summary ---
Author Organization [employer] ([place], [place], [place], [place]) Address [address] [place] [address] Care Team Providers Care Tail Board Worker Name Role Phone Saima Dorman APRN [...] 12:13 PM EDT Performed at: 01 - [address] [id number] Cooking Chef: Abner Diaz PhD, Phone: [phone] Kayley Whitaker MD LAB BLOOD ORDERABLES Final R esult [facility] * Hepatitis C Virus Ab w/Rflx to HCV NAAT(SENDOUT) (07/03/2022 1:21 PM EDT) Pathologist [facility] Hepatitis C Antibody by SENG Interp Negative Negative 07/05/2022 10:57 AM EDT [facility] Comment: Based on the anti-HCV (SENG) screen, [...] Index 0.04 IV 07/05/2022 10:57 AM EDT [facility] Comment: Performed by [facility], [address] [place] [id number] [email or web address], Carson Jay MD, PHD, Lab. Director Blood Venipuncture / Unknown 07/03/2022 1:21 PM EDT 07/03/2022 1:28 PM EDT Karolyn Ramos PA-C LAB BLOOD ORDERABLES Final [place] [address], [facility] [phone] from Last 3 Months or Most Recently Relevant to Health Maintenance Insurance [employer] CHO[employer] PPO BLUE CROSS/BLUE SHIELD Advance Directives For more information, please contact: [phone] * Full Code (Latest Code Status on File) Date Activated Date Inactivated Comments 04/29/2022 9:21 AM 04/29/2022 1:52 PM -Attempt Resus citation if person has no pulse and is not breathing. -If no pulse or not breathing attempt CPR/CODE. -Call Rapid Response if patient is in distress. Care Teams Tail Board Worker Relationship Specialty Start Date End Date Saima Dorman, HAND HIDE STRETCHER [address] [place] [address] PCP - General Nurse Practitioner 12/26/21
--- OUTSIDE RECORDS SUMMARY | 2024-11-27 11:11 | XMS_ITS | Encounter Summary ---
Author Organization Healthcare Address [address] [place] [address] Care Team Providers Care Cyber Legal Advisor Name Role Phone DandyAnnieyair Persaud APRN Primary Care Provider [phone] Reason for Referral * Consultation (Routine) - Closed Specialty Diagnoses / Procedures Referred By Jordan watson Referred To Contact Gastroenterology Diagnoses Abnormal CT scan, liver Fatty liver Karolyn Ramos PA [address] [facility] [address] [place] [address] Phone: tel: fax: Referral ID Status Reason Start Date Expiration Date V isits Requested Visits Authorized [id number] Closed Specialty Services Required 01/18/2023 07/19/2024 1 1 Encounter Details Date Type Department Care Team (Late st Contact Info) Description 01/18/2023 [facility] [address] [place] [address] Karolyn Ramos PA [address] [place] [address] scan, liver (Primary [...] documented as of this encounter Care Teams Cyber Legal Advisor Relationship Specialty Start Date End Date Saima Dorman APRN [address] [place] [address] PCP - General 07/12/20 documented as of this encounter
--- OUTSIDE RECORDS SUMMARY | 2024-11-27 11:11 | XMS_ITS ---
Author Organization [facility] Address [address] [place] [address] Phone Care Team Providers Care Rhic Systems Safety Engineer Name Role Phone YESSICA DE DIOS Unavailable [phone] David Toussaint MD Unavailable [phone] Problems Includes: Active, inactive, and resolved Problems All Visits Onset Date Resolved Date Provider Condition S tatus Joint Pain Right Knee 09/20/2018 José contreras MD Active Last Documented On 9 2:16PM ; [facility] Plan of Treatment Instructions to patient Instructions for patient to see pcp for weight and bp Last Documented On 9 10:40AM ; [facility] Lose weight Last Documented On 9 10:40AM ; [facility] Instructions for patient to see pcp for weight and bp Last Documented On 9 2:30PM ; [facility] Lose weight Last Documented On 9 2:30PM ; [facility] Assessments Includes: Assessments for all patient encounters No Assessments Recorded Instructions Includes: Instructions for all patient encounters Instructions to patient Instructions for patient to see pcp for weight and bp Last Documented On 9 10:40AM ; [facility] Lose weight Last Documented On 9 10:40AM ; [facility] Instructions for patient to see pcp for weight and bp Last Documented On 9 2:30PM ; [facility] Lose weight Last Documented On 9 2:30PM ; [facility] Medical Equipment - Implanted Devices Includes: Current and historical Devices No Medical Equipment Recorded Medications Includes: Current and historical Medications Current Medications (continue as prescribed) Cartia XT 240MG Oral Capsule Extended Release 24 Hour 09/19/2018 Provider: YESSICA DE DIOS Diagnosis: Last Documented On 9 2:17PM By Halima Levine ; [facility] Zolpidem Tartrate 10MG Oral Tablet 09/19/2018 Provid er: YESSICA DE DIOS Diagnosis: Last Documented On 9 2:16PM By Halima Levine ; [facility] Symbicort 160-4.5MCG/ACT Inhalation Aerosol 09/16/2018 Provider: Diagnosis: Last Documented On 9 2:17PM By Halima Levine ; [facility] Losartan Potassium-HCTZ 100-25MG Oral Tablet 9 Provider: Diagnosis: Last Documented On 9 2:17PM By Halima Levine ; [facility] Dupixent 300MG/2ML Subcutaneous Solution Prefilled Syr karlo 09/12/2018 Provider: Diagnosis: Last Documented On 9 2:17PM By Halima Levine ; [facility] Lyrica 100MG Oral Capsule 09/07/2018 Provider: Galen Andrade APRN Diagnosis: Last Documented On 9 2:17PM By Halima Levine ; [facility] Furosemide 20MG Oral Tablet 09/07/2018 Provider: Marti Andrade APRN Diagnosis: Last Documented On 9 2:17PM By Halima Levine ; [facility] Fluconazole 150MG Oral Tablet 09/07/2018 Provider: Marti Andrade APRN Diagnosis: Last Documented On 9 2:17PM By Halima Levine ; [facility] Uloric 40MG Oral Tablet 08/25/2018 Provider: JOHN DE DIOS Diagnosis: Last Documented On 9 2:17PM By Halima Levine ; [facility] DULoxetine HCl 60MG Oral Cap heaven Delayed Release Particles 08/23/2018 Provider: YESSICA DE DIOS Diagnosis: Last Documented On 9 2:17PM By Halima Levine ; [facility] Ipratropium-Albuterol 0.5-2.5 (3)MG/3ML Inhalati on Solution 08/23/2018 Provider: Diagnosis: Last Documented On 9 2:18PM By Halima Levine ; [facility] Past Medications on file Mupirocin 2% External Ointment 11/07/2018 - 11/12/2018 Provider: José li MD Diagnosis: Apply to nostrils three time s a day starting 5 days prior to surgery Last Documented On 9 10:50AM By Shaneka Medina ; [facility] Medications Administered Includes: Administered Medications in patient's chart No Administered Medications Recorded Results Includes: Results from 11/28/2023 through 11/27/2024 No Results Recorded For Specified Dates History of Present Illness History of Present Illness not supported for this document type No History of Present Illness Recorded Social History Description Last Updated Alcohol use 09/20/2018 Last Documented On 9 11:51AM ; [facility] No caffeine use 09/20/2018 Last Documented On 9 11:51AM ; [facility] No recent change in diet 09/20/2018 Last Documented On 9 11:51AM ; [facility] Not a current smoker 09/20/2018 Last Documented On 9 11:51AM ; [facility] Not exercising regularly 09/20/2018 Last Documented On 9 11:51AM ; [facility] Not using drugs 09/20/2018 Last Documented On 9 11:51AM ; [facility] No tobacco use 09/20/2018 Last Documented On 9 11:51AM ; [facility] Smoking status : Never smoker 09/20/2018 Last Documented On 9 11:51AM ; [facility] Procedures and Surgical History Surgical History Last Updated History of hysterectomy 09/20/2018 Last Documented On 9 11:51AM ; [facility] Medical History Includes: Medical History in patient's chart Description Last Updated Arthritic joint problems 09/20/2018 Last Documented On 9 11:51AM ; [facility] Gallbladder disease 09/20/2018 Last Documented On 9 11:51AM ; [facility] History of asthma 09/20/2018 Last Documented On 9 11:51AM ; [facility] History of depression 09/20/2018 Last Documented On 9 11:51AM ; [facility] Intermittent hypertension 09/20/2018 Last Documented On 9 11:51AM ; [facility] Family History Includes: Family History in patient's chart Description Last Updated Family history of heart disease 09/21/19 19 Last Documented On 9 11:51AM ; [facility] Family history of hypertension 9 Last Documented On 9 11:51AM ; [facility] Review of Systems Review of Systems not [...] Active Last Documented On 9 10:40AM ; [facility] Insurance Includes: Active Insurance Policies Plan Name Member ID Group # Subscriber Relationship Effect bridgett Dates 1 - [facility] [id number] Moraima Loya Self Clinical Notes Includes: Signed Clinical Notes starting from 02/12/2022 No Clinical Notes Recorded
--- OUTSIDE RECORDS SUMMARY | 2024-11-27 11:11 | XMS_ITS | Clinical Summary ---
Author Organization [facility] Address [address] [place] [address] Phone Care Team Providers Care Chief Technology Officer Name Role Phone YESSICA DE DIOS Unavailable [phone] David Toussaint MD Unavailable [phone] Reason for Visit and Chief Complaint [Patient Encounter] Problems Includes: Problems addressed during this encounter and other active Problems All Visits Onset Date Resolved Date Provider Condition S tatus Joint Pain Right Knee 09/20/2018 José contreras MD Active Last Documented On 9 2:16PM ; [facility] Plan of Treatment No Plan of [...] On 9 2:17PM By Halima Levine ; [facility] Zolpidem Tartrate 10MG Oral Tablet 09/19/2018 Provid er: YESSICA DE DIOS Diagnosis: Last Documented On 9 2:16PM By Halima Levine ; [facility] Symbicort 160-4.5MCG/ACT Inhalation Aerosol 09/16/2018 Provider: Diagnosis: Last Documented On 9 2:17PM By Halima Levine ; [facility] Losartan Potassium-HCTZ 100-25MG Oral Tablet 9 Provider: Diagnosis: Last Documented On 9 2:17PM By Halima Levine ; [facility] Dupixent 300MG/2ML Subcutaneous Solution Prefilled Syr karlo 09/12/2018 Provider: Diagnosis: Last Documented On 9 2:17PM By Halima Levine ; [facility] Lyrica 100MG Oral Capsule 09/07/2018 Provider: Galen Andrade APRN Diagnosis: Last Documented On 9 2:17PM By Halima Levine ; [facility] Furosemide 20MG Oral Tablet 09/07/2018 Provider: Marti Andrade APRN Diagnosis: Last Documented On 9 2:17PM By Halima Levine ; [facility] Fluconazole 150MG Oral Tablet 09/07/2018 Provider: Marti Andrade APRN Diagnosis: Last Documented On 9 2:17PM By Halima Levine ; [facility] Uloric 40MG Oral Tablet 08/25/2018 Provider: JOHN DE DIOS Diagnosis: Last Documented On 9 2:17PM By Halima Levine ; [facility] DULoxetine HCl 60MG Oral Cap heaven Delayed Release Particles 08/23/2018 Provider: YESSICA DE DIOS Diagnosis: Last Documented On 9 2:17PM By Halima Levine ; [facility] Ipratropium-Albuterol 0.5-2.5 (3)MG/3ML Inhalati on Solution 08/23/2018 Provider: Diagnosis: Last Documented On 9 2:18PM By Halima Levine ; [facility] Medications Administered Includes: Administered Medications from [...] Subscriber Relationship Effect bridgett Dates 1 - [facility] [id number] Moraima [place] Clinical Notes Includes: Clinical Notes from this encounter No Clinical Notes Recorded
--- OUTSIDE RECORDS SUMMARY | 2024-11-27 11:11 | XMS_ITS | Clinical Summary ---
Author Organization [facility] Address [address] [place] [address] Care Team Providers Care Superintendent Service Name Role Phone Unavailable Primary Care Provider [...] 2014 ZOSTER VACCINE (1 of 2) 2014 INFLUENZA VACCINE 09/29/2024 Insurance [facility] PPO Member Subscriber Plan / Payer (Ef fective 2023-Present) Name:Moraima Figueroa Relation to Subscriber:Spouse Name:ABEL FIGUEROA Payer ID:[id number] (NAIC) Type:Not on file Address: [facility] [id number] [place] [id number]
--- OUTSIDE RECORDS SUMMARY | 2024-11-27 11:11 | XMS_ITS | Clinical Summary ---
Author Organization [facility] Address [address] [place] [address] Phone Care Team Providers Care Youth Associate Name Role Phone LANREYESSICA Unavailable [phone] David Toussaint MD Unavailable [phone] Reason for Visit and Chief Complaint The Chief Complaint is: Right knee pain Problems Includes: Problems addressed during this encounter and other active Problems Current Visit Onset Date Resolved Date Provider Kelli pace Status Joint Pain Right Knee 09/20/2018 José contreras MD Active Last Documented On 9 2:16PM ; [facility] Plan of Treatment We discussed options [...] - Last Documented On 09/22/2018 11:51AM ; [facility] Instructions to patient Instructions for patient to see pcp for weight and bp Last Documented On 9 2:30PM ; [facility] Lose weight Last Documented On 9 2:30PM ; [facility] Assessments Includes: Assessments from this encounter No Assessments Recorded Instructions Includes: Instructions from this encounter Instructions to patient Instructions for patient to see pcp for weight and bp Last Documented On 9 2:30PM ; [facility] Lose weight Last Documented On 9 2:30PM ; [facility] Medical Equipment - Implanted Devices Includes: Current Devices No Medical Equipment Recorded Medications Includes: Medications discussed during this encounter and other current Medications Current Medications (continue as prescribed) Cartia XT 240MG Oral Capsule Extended Release 24 Hour 09/19/2018 Provider: YESSICA DE DIOS Diagnosis: Last Documented On 9 2:17PM By Halima Levine ; [facility] Zolpidem Tartrate 10MG Oral Tablet 09/19/2018 Provid er: YESSICA DE DIOS Diagnosis: Last Documented On 9 2:16PM By Halima Levine ; [facility] Symbicort 160-4.5MCG/ACT Inhalation Aerosol 09/16/2018 Provider: Diagnosis: Last Documented On 9 2:17PM By Halima Levine ; [facility] Losartan Potassium-HCTZ 100-25MG Oral Tablet 9 Provider: Diagnosis: Last Documented On 9 2:17PM By Halima Levine ; [facility] Dupixent 300MG/2ML Subcutaneous Solution Prefilled Syr karlo 09/12/2018 Provider: Diagnosis: Last Documented On 9 2:17PM By Halima Levine ; [facility] Lyrica 100MG Oral Capsule 09/07/2018 Provider: Galen Andrade APRN Diagnosis: Last Documented On 9 2:17PM By Halima Levine ; [facility] Furosemide 20MG Oral Tablet 09/07/2018 Provider: Marti Andrade APRN Diagnosis: Last Documented On 9 2:17PM By Halima Levine ; [facility] Fluconazole 150MG Oral Tablet 09/07/2018 Provider: Marti Andrade APRN Diagnosis: Last Documented On 9 2:17PM By Halima Levine ; [facility] Uloric 40MG Oral Tablet 08/25/2018 Provider: JOHN DE DIOS Diagnosis: Last Documented On 9 2:17PM By Halima Levine ; [facility] DULoxetine HCl 60MG Oral Cap heaven Delayed Release Particles 08/23/2018 Provider: YESSICA DE DIOS Diagnosis: Last Documented On 9 2:17PM By Halima Levine ; [facility] Ipratropium-Albuterol 0.5-2.5 (3)MG/3ML Inhalati on Solution 08/23/2018 Provider: Diagnosis: Last Documented On 9 2:18PM By Halima Levine ; [facility] Past Medications on file Mupirocin 2% External Ointment 11/07/2018 - 11/12/2018 Provider: José li MD Diagnosis: Apply to nostrils three time s a day starting 5 days prior to surgery Last Documented On 9 10:50AM By Shaneka Medina ; [facility] Medications Administered Includes: Administered Medications from this encounter No Administered Medications Recorded Vital Signs Includes: Vital Signs from this encounter Vital Name 09/20/2018 02:24P Height (in) 65 Weight (lb) 238 Body Mass Index (kg/m2) 39.6 Body Surface Area (m2) 2.1 Note: hav Last Documented: On 09/20/2018 2:30PM ; [facility] Results Includes: Results discussed during [...] 09/20/2018 Last Documented On 9 11:51AM ; [facility] No caffeine use 09/20/2018 Last Documented On 9 11:51AM ; [facility] No recent change in diet 09/20/2018 Last Documented On 9 11:51AM ; [facility] Not a current smoker 09/20/2018 Last Documented On 9 11:51AM ; [facility] Not exercising regularly 09/20/2018 Last Documented On 9 11:51AM ; [facility] Not using drugs 09/20/2018 Last Documented On 9 11:51AM ; [facility] No tobacco use 09/20/2018 Last Documented On 9 11:51AM ; [facility] Smoking status : Never smoker 09/20/2018 Last Documented On 9 11:51AM ; [facility] Procedures and Surgical History Includes: Procedures from this encounter Procedures Code Diagnosis Performing Provider Service L ocation Service Date Clinical summary provided to patient Last Documented On 9 2:23PM ; [facility] history of an X-ray was performed 76635 Last Documented On 9 2:29PM ; [facility] history of an MRI was performed [id number] Last Documented On 9 2:29PM ; [facility] Surgical History Last Updated History of hysterectomy 09/20/2018 Last Documented On 9 11:51AM ; [facility] Medical History Includes: Medical History addressed during this encounter Description Last Updated Arthritic joint problems 09/20/2018 Last Documented On 9 11:51AM ; [facility] Gallbladder disease 09/20/2018 Last Documented On 9 11:51AM ; [facility] History of asthma 09/20/2018 Last Documented On 9 11:51AM ; [facility] History of depression 09/20/2018 Last Documented On 9 11:51AM ; [facility] Intermittent hypertension 09/20/2018 Last Documented On 9 11:51AM ; [facility] Family History Includes: Family History addressed during this encounter Description Last Updated Family history of heart disease 09/21/19 19 Last Documented On 9 11:51AM ; [facility] Family history of hypertension 9 Last Documented On 9 11:51AM ; [facility] Review of Systems Includes: Review [...] Active Last Documented On 9 10:40AM ; [facility] Encounters Encounter Provider Location Date Check-In Time Check-Out Time Diagnosis Physician Specified José Mckeon MD [facility] 09/21/19 2:08PM 3:28PM Insurance Includes: Active Insurance Policies Plan Name Member ID Group # Subscriber Relationship Effect bridgett Dates 1 - [facility] [id number] Moraima Loya Self Clinical Notes Includes: Clinical Notes from this encounter No Clinical Notes Recorded
--- OUTSIDE RECORDS SUMMARY | 2024-11-27 11:11 | XMS_ITS | Clinical Summary ---
Author Organization [facility] , [facility] Address [address] [place] [address] Phone Care Team Providers Care Administrator Health Care Facility Name Role Phone LANREARPANE Unavailable [phone] David Toussaint MD Unavailable [phone] Reason for Visit and Chief Complaint The Chief Complaint is: Right knee pain Problems Includes: Problems addressed during this encounter and other active Problems All Visits Onset Date Resolved Date Provider Condition S tatus Joint Pain Right Knee 09/20/2018 José contreras MD Active Last Documented On 9 2:16PM ; [facility] Plan of Treatment She has evidence of [...] proceed. we will get clearance from her sanitation worker cleaning equipment and family physician preoperatively. She is otherwise healthy good surgical candidate. We'll plan to do this under general anesthetic at the surgery center. She had no further questions. - Last Documented On 09/27/2018 11:27AM ; [facility], [facility] Instructions to patient Instructions for patient to see pcp for weight and bp Last Documented On 9 10:40AM ; [facility], [facility] Lose weight Last Documented On 9 10:40AM ; [facility], [facility] Assessments Includes: Assessments from this encounter No Assessments Recorded Instructions Includes: Instructions from this encounter Instructions to patient Instructions for patient to see pcp for weight and bp Last Documented On 9 10:40AM ; [facility], [facility] Lose weight Last Documented On 9 10:40AM ; [facility], [facility] Medical Equipment - Implanted Devices Includes: Current Devices No Medical Equipment Recorded Medications Includes: Medications discussed during this encounter and other current Medications Current Medications (continue as prescribed) Cartia XT 240MG Oral Capsule Extended Release 24 Hour 09/19/2018 Provider: YESSICA DE DIOS Diagnosis: Last Documented On 9 2:17PM By Halima Levine ; [facility], [facility] Zolpidem Tartrate 10MG Oral Tablet 09/19/2018 Provid er: YESSICA DE DIOS Diagnosis: Last Documented On 9 2:16PM By Halima Levine ; [facility], [facility] Symbicort 160-4.5MCG/ACT Inhalation Aerosol 09/16/2018 Provider: Diagnosis: Last Documented On 9 2:17PM By Halima Levine ; [facility], [facility] Losartan Potassium-HCTZ 100-25MG Oral Tablet 9 Provider: Diagnosis: Last Documented On 9 2:17PM By Halima Levine ; [facility], [facility] Dupixent 300MG/2ML Subcutaneous Solution Prefilled Syr karlo 09/12/2018 Provider: Diagnosis: Last Documented On 9 2:17PM By Halima Levine ; [facility], [facility] Lyrica 100MG Oral Capsule 09/07/2018 Provider: Galen Andrade APRN Diagnosis: Last Documented On 9 2:17PM By Halima Levine ; [facility], [facility] Furosemide 20MG Oral Tablet 09/07/2018 Provider: Marti Andrade APRN Diagnosis: Last Documented On 9 2:17PM By Halima Levine ; [facility], [facility] Fluconazole 150MG Oral Tablet 09/07/2018 Provider: Marti Andrade APRN Diagnosis: Last Documented On 9 2:17PM By Halima Levine ; [facility], [facility] Uloric 40MG Oral Tablet 08/25/2018 Provider: JOHN DE DIOS Diagnosis: Last Documented On 9 2:17PM By Halima Levine ; [facility], [facility] DULoxetine HCl 60MG Oral Cap heaven Delayed Release Particles 08/23/2018 Provider: YESSICA DE DIOS Diagnosis: Last Documented On 9 2:17PM By Halima Levine ; [facility], [facility] Ipratropium-Albuterol 0.5-2.5 (3)MG/3ML Inhalati on Solution 08/23/2018 Provider: Diagnosis: Last Documented On 9 2:18PM By Halima Levine ; [facility], [facility] Past Medications on file Mupirocin 2% External Ointment 11/07/2018 - 11/12/2018 Provider: José li MD Diagnosis: Apply to nostrils three time s a day starting 5 days prior to surgery Last Documented On 9 10:50AM By Shaneka Medina ; [facility], [facility] Medications Administered Includes: Administered Medications from this encounter No Administered Medications Recorded Vital Signs Includes: Vital Signs from this encounter Vital Name 09/27/2018 10:46A Height (in) 65 Weight (lb) 238 Body Mass Index (kg/m2) 39.6 Body Surface Area (m2) 2.1 Note: hav Last Documented: On 09/27/2018 10:46A M ; [facility], [facility] Results Includes: Results discussed during this encounter [...] 09/20/2018 Last Documented On 9 10:40AM ; [facility] No caffeine use 09/20/2018 Last Documented On 9 10:40AM ; [facility] No recent change in diet 09/20/2018 Last Documented On 9 10:40AM ; [facility] Not a current smoker 09/20/2018 Last Documented On 9 10:40AM ; [facility] Not exercising regularly 09/20/2018 Last Documented On 9 10:40AM ; [facility] Not using drugs 09/20/2018 Last Documented On 9 10:40AM ; [facility] No tobacco use 09/20/2018 Last Documented On 9 10:40AM ; [facility] Smoking status : Never smoker 09/20/2018 Last Documented On 9 10:40AM ; [facility], [facility] Procedures and Surgical History Includes: Procedures from this encounter Procedures Code Diagnosis Performing Provider Service L ocation Service Date history of an X-ray was performed 65862 Last Documented On 9 10:40AM ; [facility] history of an MRI was performed 67291 Last Documented On 9 10:40AM ; [facility], [facility] Surgical History Last Updated History of hysterectomy 09/20/2018 Last Documented On 9 10:40AM ; [facility] Medical History Includes: Medical History addressed during this encounter Description Last Updated Arthritic joint problems 09/20/2018 Last Documented On 9 10:40AM ; [facility] Gallbladder disease 09/20/2018 Last Documented On 9 10:40AM ; [facility] History of asthma 09/20/2018 Last Documented On 9 10:40AM ; [facility] History of depression 09/20/2018 Last Documented On 9 10:40AM ; [facility] Intermittent hypertension 09/20/2018 Last Documented On 9 10:40AM ; [facility] Family History Includes: Family History addressed during this encounter Description Last Updated Family history of heart disease 09/21/19 19 Last Documented On 9 10:40AM ; [facility] Family history of hypertension 9 Last Documented On 9 10:40AM ; [facility] Review of Systems Includes: Review of Systems [...] Active Last Documented On 9 10:40AM ; [facility] Encounters Encounter Provider Location Date Check-In Time Check- Out Time Diagnosis Follow Up José Mckeon [facility] 9 10:20AM 11:35AM Insurance Includes: Active Insurance Policies Plan Name Member ID Group # Subscriber Relationship Effect bridgett Dates - [facility] [id number] Moraima Loya Self Clinical Notes Includes: Clinical Notes from this encounter No Clinical Notes Recorded
== END 2024-11-27 23:59 | disposition home or self-care (01) ==
LOC: RAD 11:03
PROVIDERS: PCP Nurse Practitioner Family; Visit Provider Nurse Practitioner Family
DX: J18.9 Pneumonia, unspecified organism (principal)
CPT/HCPCS: 71046

== ENCOUNTER 2024-12-25 12:03 | Outpatient (CLI) | payer BC, SELFPAY ==
--- OUTSIDE RECORDS SUMMARY | 2024-12-25 12:06 | XMS_ITS | Encounter Summary ---
Author Organization Healthcare Address [address] [place] [address] Care Team Providers Care Linen Clerk Name Role Phone DandyAnnieyair Persaud APRN Primary Care Provider [phone] Reason for Referral * Consultation (Routine) - Closed Specialty Diagnoses / Procedures Referred By Jordan watson Referred To Contact Gastroenterology Diagnoses Abnormal CT scan, liver Fatty liver Karolyn Ramos PA [address] [facility] [address] [place] [address] Phone: tel: fax: Referral ID Status Reason Start Date Expiration Date V isits Requested Visits Authorized [id number] Closed Specialty Services Required 01/18/2023 07/19/2024 1 1 Encounter Details Date Type Department Care Team (Late st Contact Info) Description 01/18/2023 [facility] [address] [place] [address] Karolyn Ramos PA [address] [place] [address] scan, liver (Primary [...] documented as of this encounter Care Teams Linen Clerk Relationship Specialty Start Date End Date Saima Dorman APRN [address] [place] [address] PCP - General 07/12/20 documented as of this encounter
--- OUTSIDE RECORDS SUMMARY | 2024-12-25 12:06 | XMS_ITS | Clinical Summary ---
[facility] Organization [facility] Address [address] [place] [address] Care Team Providers Care Senior Graphic Designer Name Role Phone Unavailable Primary Care Provider [...] of 2) 2014 INFLUENZA VACCINE 09/29/2024 Insurance [facility] PPO Member Subscriber Plan / Payer (Ef fective 2023-Present) Name:Moraima Figueroa Relation to Subscriber:Spouse Name:ABEL FIGUEROA Payer ID:[id number] (NAIC) Type:Not on file Address: [facility] [id number] [place] [id number]
--- OUTSIDE RECORDS SUMMARY | 2024-12-25 12:06 | XMS_ITS | Clinical Summary ---
Author Organization Healthcare Address [address] [place] [address] Care Team Providers Care Clinical Data Research Name Role Phone Saima Dorman CHRISTI Primary Care Provider [phone] Allergies Active Allergy Reactions Criticality Noted Date [...] (one) time each day. Active HYDROcodone-aceta minophen (Marmaduke) 7.5-325 MG tablet 2 Active methylPREDNISolon e (Medrol Dospak) 4 MG tablets 2 Active pregabalin (Lyrica) 150 MG capsule 2 Active hydrocortisone (Cortef) 10 MG tabletIndications :Adrenal insufficiency (Steve's disease) Take 1 tablet (10 mg total) [...] Active fluticasone (Flonase) 50 MCG/ACT nasal spray [place] 1 spray every day by intranasal route [...] 2014 UKY-Zoster Vaccines (1 of 2) 2014 [id number] Vaccine (3 - Moderna risk series) 08/06/2020 [...] this topic Medical Devices Implanted Type Area Cotton Classer Aide Device Identifier Shelf Expiration Date Model / Serial / Lot Medtronic Spinal Cord Stimulator-10/31 Implanted:10/31 (Quantity not on file) Spinal Cord Stimulator Back Medtronic [id number] / / Description:MEDTR[employer] SCS LE AD MODEL: [id number], implant date 11/19/2023 Procedures Procedure Name Priority [...] Adults <6.0% Children and Adolescents <7.5% Source: [employer]. Standards of medical care in diabetes,2017. Diabetes Care.2017:40 (suppl 1):S1-S135. HbA1c assay performed by an ion-exchange chromatography method that is certified traceable to the DCCT. Emanuel Tadeo MD LAB BLOOD ORDERABLES Final Result [facility] [address] [place] [id number] from Last 3 Months or Most Recently Relevant to Health Maintenance Insurance MEDICARE ANTHEM Care Teams Clinical Data Research Relationship Specialty Start Date End Date Samia Dorman APRN [address] [place] [address] PCP - General 07/12/20
--- OUTSIDE RECORDS SUMMARY | 2024-12-25 12:06 | XMS_ITS | Data Portability ---
Author Organization [facility] telehealth Address [address] [place] [address] Assessment Encounter Date Assessment Date Assessment LastModified by Organization Details LastModified Time 01/02/2022 01/02/2022 56 y/o F here today for annual exam. WNWD female in NAD. Pt has noticed an increase in hot flashes lately. Also struggling with urinary incontinence. If she has to use the restroom she has to go immediately or she will leak urine. 18 years ago had a mesh sling placed. Does SBE's. Mammogram and colonoscopy up to date. Pap UTD today. Will draw angela and hormone labs today. She will RTC to see Dr. Porter for eval of incontinence. All other ROS neg X HPI. Meds reviewed and accurate. Pleasant mood. Not available 01/02/2022 14:59:16 02/12/2022 02/12/2022 56yo F presents for bladder evaluation. Pt reports incontinence and urinary urgency. Pt also says she has been experiencing hot flashes. Pt takes a water pill. Both ovaries are small, consistent with post menopausal appearance. No bladder funneling noted. Spec exam reveals vaginal discharge, culture collected. No prolapse noted. Bimanual exam reveals organs are well suspended, surgery not indicated. Mesh is holding up, no erosion detected. Advised pt to avoid heavy lifting. Started pt on Myrbetriq. Discussed weight loss with pt. Recommended injections for diabetes. Pt reports constipation. Started pt on Linzess. Discussed HRT. Pt is interested in pellets. Offered bioidentical transdermal cream. Will check hormone levels and design dose based on lab results. Pt is due for mammogram and colonoscopy. Will write referral and send Cologuard test. Pt will RTC for WWE, sooner if needed. [email or web address] Not available 02/12/2022 10:55:41 04/21/2022 04/21/2022 57 y/o F here today for HRT pellet insertion. WNWD Female in NAD. This is pts first pellet insertion. Explained procedure to pt and answered pt Qs. She will RTC in 6 weeks for labs to monitor dose. Pellets inserted into L side. Pt tolerated procedure well. Procedure documented above. RTC 3 mo for next pellet insertion or PRN. Pleasant mood. Not available 04/21/2022 09:51:06 10/29/2022 10/29/2022 57 y/o F here today to discuss HRT. She has been on Pellet HRT before but is interested in trying the transdermal. Reports that she did ok on pellet HRT but did still have hot flashes. Will draw hormone BW today and design a dose once lab results are reviewed. Will fill to [facility] and have them mail to pt. Educated her on how to apply the transdermal HRT, she expressed understanding. Will fill x 2 mo because we are going to have her do BW closer to home ([facility]) and then f/u via TH. She has been on Linzess 72mcg but is still having some constipation. Will increase to 145mcg. She is taking it QAM and 30min prior to any other food or medication intake. RTC via TH in 1 mo or PRN. Pleasant mood. Not available 10/29/2022 12:58:06 Plan of Treatment Reminders Order Date Submit Date Provider Last Modified By Organization Details Last Modified Time Details Appointments None recorded. Lab estradiol, serum 2022 023 [facility]), [address] [place] [address], [id number], 3 05:15:53 dhea-sulfa te, serum 2022 023 [facility] ([facility]), [address] [place], [address], 3 05:15:54 testostero ne, total, serum 2022 023 [facility] ([facility]), [address] [place] [address], [id number], 3 05:15:52 estradiol, serum 2021 022 [facility] ([facility]), [address] [place] [address], [address], 2 05:02:16 dhea-sulfa te, serum 2021 022 [facility] ([facility]), [address] [place] [address], [address], 2 05:02:17 testostero ne, total, serum 2021 022 [facility] ([facility]), [address] [place] [address], [address], 2 05:02:16 lh + FSH, serum 2021 022 [facility] ([facility]), [address] [place] [address], [address], 2 05:02:15 pap, LB 2021 022 [facility] ([facility]), [address] [place] [address], [address], 2 18:14:55 CBC w/ auto diff 2021 022 [facility] ([facility]), [address] [place] [address], [address], 2 08:43:10 CMP, serum or plasma 2021 022 [facility] ([facility]), [address] [place], [address], 2 08:43:10 HbA1c (hemoglobi n A1c), blood 2021 [facility] [address] [place], [address], 2 08:43:11 TSH, serum or plasma 2021 [facility]), [address] [place], [address], 2 08:43:11 fecal occult blood, stool 2021 Carin Porter MD, [address] [facility] [address], [place], [address], 2 14:59:13 Referral None recorded. Procedures None recorded. Surgeries None recorded. Imaging None recorded. Medication Orders Linzess 145 mcg capsule 2022 023 [facility], [address] [place] [address], [address], [address], 3 12:25:34 Linzess 72 mcg capsule 2021 022 [facility], [address] [place] [address], [place], [address], 2 10:54:24 Myrbetriq 50 mg tablet,ext ended release 2021 023 [facility], [address] [place] [address], [address], 3 12:11:41 Patient TargetsNo targets recorded. Patient InstructionsNo instructions recorded. Reason for Referral None Reported. Results Created Date Observation Date Name Description Value Unit Range Abnormal Flag Note LastModifiedBy Organization Detail LastModifiedTime 01/03/20 22 01/03/2022 CBC WITH PLATE LET AND DIFFE RENTI AL WBC 17.9 K/uL 3.8-11 .5 high Not Available [facility] ([facility]) [address] [place] [address] [address], [place], [address], 01/03/2022 08:43:10 01/03/20 22 01/03/2022 CBC WITH PLATE LET AND DIFFE RENTI AL red blood cell count (RBC) 4.87 M/mm3 3.60-5 .30 Not Available [facility]) [address] [place] [address] [address], [place], [address], 01/03/2022 08:43:10 01/03/20 22 01/03/2022 CBC WITH PLATE LET AND DIFFE RENTI AL hemoglobin (HGB) 13.5 gm/dL 11.5-1 5.5 Not Available [facility] ([facility]) [address] [place] [address] [address], [place], [address], 01/03/2022 08:43:10 01/03/20 22 01/03/2022 CBC WITH PLATE LET AND DIFFE RENTI AL hematocrit (HCT) 41.2 % 35.2-4 6.4 Not Available [facility] ([facility]) [address] [place] [address] [address], [place], [address], 01/03/2022 08:43:10 01/03/20 22 01/03/2022 CBC WITH PLATE LET AND DIFFE RENTI AL MCV 84.6 fL 79.0-9 9.0 Not Available [facility] ([facility]) [address] [place] [address] [address], [place], [address], 01/03/2022 08:43:10 01/03/20 22 01/03/2022 CBC WITH PLATE LET AND DIFFE RENTI AL MCH 27.7 pg 26.9-3 5.0 Not Available [facility]) [address] [place] [address] [address], [place], [address], 01/03/2022 08:43:10 01/03/20 22 01/03/2022 CBC WITH PLATE LET AND DIFFE RENTI AL MCHC 32.8 g/dL 30.4-3 4.8 Not Available [facility] ([facility]) [address] [place] [address] [address], [place], [address], 01/03/2022 08:43:10 01/03/20 22 01/03/2022 CBC WITH PLATE LET AND DIFFE RENTI AL RDW 45.6 fL 38.6-5 3.8 Not Available [facility]) [address] [place] [address] [address], [place], [address], 01/03/2022 08:43:10 01/03/20 22 01/03/2022 CBC WITH PLATE LET AND DIFFE RENTI AL platelet count 480 K/cum m 137-39 7 high Not Available [facility] ([facility]) [address] [place] [address] [address], [place], [address], 01/03/2022 08:43:10 01/03/20 22 01/03/2022 CBC WITH PLATE LET AND DIFFE RENTI AL neutrophils automated 63.7 % 41.0-7 7.0 Not Available [facility]) [address] [place] [address] [address], [place], [address], 01/03/2022 08:43:10 01/03/20 22 01/03/2022 CBC WITH PLATE LET AND DIFFE RENTI AL lymphocytes automated 26.5 % 14.0-4 8.0 Not Available [facility] ([facility]) [address] [place] [address] [address], [place], [address], 01/03/2022 08:43:10 01/03/20 22 01/03/2022 CBC WITH PLATE LET AND DIFFE RENTI AL monocytes automated 7.3 % 4.0-13 .0 Not Available [facility]) [address] [place] [address] [address], [place], [address], 01/03/2022 08:43:10 01/03/20 22 01/03/2022 CBC WITH PLATE LET AND DIFFE RENTI AL eosinophils automated 0.5 % 0.0-8. 0 Not Available [facility] [address] [place] [address] [address], [place], [address], 01/03/2022 08:43:10 01/03/20 22 01/03/2022 CBC WITH PLATE LET AND DIFFE RENTI AL basophils automated 0.4 % 0.0-1. 5 Not Available [facility]) [address] [place] [address] [address], [place], [address], 01/03/2022 08:43:10 01/03/20 22 01/03/2022 CBC WITH PLATE LET AND DIFFE RENTI AL immature granulocyte automated 1.6 % 0.0-1. 0 high Immat ure Granu locyt es may be false ly eleva naz due to cellu lar zayda erati on and/o r debri s. This is typic ally seen when speci men handl ing, trans port, and/o r stora ge issue s occur prior to testi ng of the speci men(s ) (the prean alyti jerica phase ). Not Available [facility]) [address] [place] [address] [address], [place], [address], 01/03/2022 08:43:10 01/03/20 22 01/03/2022 COMPR EHENS FAUSTO METAB OLIC PANEL (CMP) sodium 141 mEq/L 135-14 5 Not Available [facility] ([facility]) [address] [place] [address] [address], [place], [address], 01/03/2022 08:43:10 01/03/20 22 01/03/2022 COMPR EHENS FAUSTO METAB OLIC PANEL (CMP) potassium 4.1 mEq/L 3.5-5. 3 Not Available [facility]) [address] [place] [address] [address], [place], [address], 01/03/2022 08:43:10 01/03/20 22 01/03/2022 COMPR EHENS FAUSTO METAB OLIC PANEL (CMP) chloride 101 mEq/L 97-108 Not Available [facility]) [address] [place] [address] [address], [place], [address], 01/03/2022 08:43:10 01/03/20 22 01/03/2022 COMPR EHENS FAUSTO METAB OLIC PANEL (CMP) CO2 28 mEq/L 22-32 Not Available [facility] ([facility]) [address] [place] [address] [address], [place], [address], 01/03/2022 08:43:10 01/03/20 22 01/03/2022 COMPR EHENS FAUSTO METAB OLIC PANEL (CMP) glucose 111 mg/dL 65-99 high Not Available [facility] ([facility]) [address] [place] [address] [address], [place], [address], 01/03/2022 08:43:10 01/03/20 22 01/03/2022 COMPR EHENS FAUSTO METAB OLIC PANEL (CMP) BUN 22 mg/dL 6-20 high Not Available [facility]) [address] [place] [address] [address], [place], [address], 01/03/2022 08:43:10 01/03/20 22 01/03/2022 COMPR EHENS FAUSTO METAB OLIC PANEL (CMP) creatinine 0.86 mg/dL 0.50-1 .00 Not Available [facility]) [address] [place] [address] [address], [place], [address], 01/03/2022 08:43:10 01/03/20 22 01/03/2022 COMPR EHENS FAUSTO METAB OLIC PANEL (CMP) calcium 9.8 mg/dL 8.6-10 .4 Not Available [facility] [address] [place] [address] [address], [place], [address], 01/03/2022 08:43:10 01/03/20 22 01/03/2022 COMPR EHENS FAUSTO METAB OLIC PANEL (CMP) protein 6.9 g/dL 6.0-8. 3 Not Available [facility]) [address] [place] [address] [address], [place], [address], 01/03/2022 08:43:10 01/03/20 22 01/03/2022 COMPR EHENS FAUSTO METAB OLIC PANEL (CMP) albumin 4.3 g/dL 3.5-5. 3 Not Available [facility]) [address] [place] [address] [address], [place], [address], 01/03/2022 08:43:10 01/03/20 22 01/03/2022 COMPR EHENS FAUSTO METAB OLIC PANEL (CMP) alkaline phosphatase 193 IU/L 35-121 high Not Available [facility] ([facility]) [address] [place] [address] [address], [place], [address], 01/03/2022 08:43:10 01/03/20 22 01/03/2022 COMPR EHENS FAUSTO METAB OLIC PANEL (CMP) ALT (SGPT) 27 IU/L <5-47 Not Available [facility] ([facility]) [address] [place] [address] [address], [place], [address], 01/03/2022 08:43:10 01/03/20 22 01/03/2022 COMPR EHENS FAUSTO METAB OLIC PANEL (CMP) AST (SGOT) 24 IU/L <5-40 Not Available [facility]) [address] [place] [address] [address], [place], [address], 01/03/2022 08:43:10 01/03/20 22 01/03/2022 COMPR EHENS FAUSTO METAB OLIC PANEL (CMP) bilirubin, total 0.2 mg/dL <0.2-1 .2 Not Available [facility]) [address] [place] [address] [address], [place], [address], 01/03/2022 08:43:10 01/03/20 22 01/03/2022 COMPR EHENS FAUSTO METAB OLIC PANEL (CMP) A/G ratio 1.7 mg/dL 1.1-2. 5 Not Available [facility]) [address] [place] [address] [address], [place], [address], 01/03/2022 08:43:10 01/03/20 22 01/03/2022 COMPR EHENS FAUSTO METAB OLIC PANEL (CMP) estimated GFR (black) 86 mL/mi n/1.7 3m2 >59 Not Available [facility]) [address] [place] [address] [address], [place], [address], 01/03/2022 08:43:10 01/03/20 22 01/03/2022 COMPR EHENS FAUSTO METAB OLIC PANEL (CMP) estimated GFR (other) 75 mL/mi n/1.7 3m2 >59 GFR Categ ories in Chron ic Kidne y Disea se (CKD) GFR Categ ory GFR (mL/m in/1. 73 sq. meter s) Inter preta tion G1 90 or great er Daya l or high* G2 60-89 Mild decre ase* G3a 45-59 Mild to moder ate decre ase G3b 30-44 Moder ate to sever e decre ase G4 15-29 Sever e decre ase G5 14 or less Jeff ratliffu re *In the absen ce of megan monsivais er GFR categ ory G1 or G2 fulfi ll the crite joann for CKD (Kidn ey Int Suppl 2013; 3.1-1 50) The CKD-E PI calcu latio n is inten ded for use in patie nts 18 years of age and older . Decre ased calcu latio n accur acy may be seen in patie nts takin g medic ation s that affec t renal excre tion, or in those patie nts with extre mes in muscl e mass or diet. Not Available [facility]) [address] [facility] [address], [place], [address], 01/03/2022 08:43:10 01/03/20 22 01/03/2022 HEMOG LOBIN A1C hemoglobin A1C 6.3 % <5.7 high The follo wing HbA1c range s recom odette d by the [place] can Diabe cayetano Assoc iatio n (ADA) may be used as an aid in the diagn osis of diabe cayetano melli tus. HA1c Sugge sted Diagn osis >=6.5 % Diabe tic 5.7% - 6.4% Pre-D iabet ic <5.7% Non-D iabet ic Not Available [facility] ([facility]) [address] [place] [address] [address], [place], [address], 01/03/2022 08:43:11 01/03/20 22 01/03/2022 HEMOG LOBIN A1C estimated average glucose 134 mg/dL [place] ge Gluco se is calcu lated using the equat ion AG = (28.7 x HgbA1 c) - 46.7 based on the guide lines estab liscl d by the ADA. Not Available [facility] ([facility]) [facility] [address], [place], [address], 01/03/2022 08:43:11 01/03/20 22 01/03/2022 TSH TSH 1.08 mU/L 0.27-4 .20 Not Available [facility] ([facility]) [address], [place], [address], 01/03/2022 08:43:11 01/03/20 22 01/05/2022 PAP TEST THIN PREP Pap test thin prep NEGATI VE FOR INTRAE PITHEL IAL LESION OR MALIGN NESSA normal ACCES GAEG #: [id number] Sourc e: Cervi jerica/E ndoce rvica l LMP: unkno wn Date Taken : 01/02 Speci men Type: ThinP rep Vial Date Repor naz: 2021 [facility] Data: Cytot ech: Andi curtis, CT( CP) Date Repor naz: 2021 Speci men Adequ acy: Satis facto ry for evalu ation Gener al Categ oriza tion: NEGAT FAUSTO FOR INTRA EPITH ELIAL LESIO N OR MALIG KISHAN Inter preta tion/ Resul t: Atrop hy The follo wing tests have been order ed as reque sted and a separ ate repor t will be issue d: HPV High Risk Scree n (TMA) This speci men has been kalia zed by the ThinP rep Imagi ng Syste m, an inter activ e compu ter syste m which mckay ts the lab in the scree joaquin of ThinP rep Pap Test slide s. Follo wing imagi ng, the slide was revie wed by a Cytot echno logis t and/o r Patho logis t. End of Repor t Techn ical servi mckenna provi ded by [facility], [facility], [facility], [address] [facility] [address] [place] [address] Guillaume Oviedo MD, Labor atory Direc tor. Case revie wed and diagn osis rende red at [facility], [facility], d/b/a [facility], [address] [facility] [address] [place] [address] Guillaume Oviedo MD, Labor atory Direc tor. CONFI DENTI AL Not Available [facility] ([facility]) [address] [place] [address] Dr [address], [place], [address], 01/05/2022 18:14:55 01/03/20 22 01/03/2022 HPV HIGH RISK SCREE N (TMA) HPV high risk NOT DETECT ED normal The human papil lomav irus (HPV) High Risk Scree n is an FDA-a pprov ed in-vi tro ampli fied nucle ic acid test for the quali tativ e detec tion of E6/E7 viral mRNA. Resul shoabby d be corre lated with patie nt prese ntati on, histo ry, cervi jerica cytol ogy and other clini jerica and labor atory findi ngs. See https ://[employer]/s ites/ defau lt/fi les/2 018-0 3/AW- 49413 _002_ 01.pd f for furbethany er infor oly n. Test perfo rmed by [facility] , [facility], d/b/a Path mar[facility], [address] [facility] [address], [place] [address] , Angel Domingo ra, DO, Labor atory Direc tor. Not Available [facility] ([facility]) [address] [place] [address] [address], [place], [address], 01/05/2022 18:14:56 01/03/20 22 01/02/2022 fecal occul t blood , stool Occult Blood negati ve Not Available Carin Porter MD [address], [place], [address], 01/02/2022 14:38:06 02/13/20 22 02/13/2022 FSH AND LH luteinizing hormone 20.70 mIU/m L LH Refer ence Range Men: 1.7 - 8.6 Women : Folli cular phase 2.4 - 12.6 Ovula tion phase 14.0 - 95.6 Lutea l phase 1.0 - 11.4 Postm enopa use 7.7 - 58.5 Not Available [facility] ([facility]) [address] [facility] [address], [place], [address], 02/13/2022 05:02:15 02/13/20 22 02/13/2022 FSH AND LH FSH 57.80 mIU/m L FSH Refer ence Range Men: 1.5 - 12.4 Women : Folli cular phase 3.5 - 12.5 Ovula tion phase 4.7 - 21.5 Lutea l phase 1.7 - 7.7 Postm enopa use 25.8 - 134.8 Not Available [facility] ([facility]) [address] [facility] [address], [place], [address], 02/13/2022 05:02:15 02/13/20 22 02/13/2022 TESTO STERO NE TOTAL (ADUL T MALE) testosterone total (adult male) <2.5 NG/dL 3.00-4 1.00 low This test is inten ded for males 13 years of age and older . Tanne r Stage IV: 180-7 63 ng/dL Tanne r Stage V: 188-8 82 ng/dL Not Available [facility] ([facility]) [facility] [address] [address], [place], [address], 02/13/2022 05:02:16 02/13/20 22 02/13/2022 ESTRA DIOL estradiol <5 pg/mL Estra diol Refer ence Range Healt hy women Folli cular phase 12.4 - 233 Ovula tion phase 41.0 - 398 Lutea l phase 22.3 - 341 Postm enopa use <5 - 138 Healt hy pregn ant women 1st trime ster 154 - 3243 2nd trime ster 1561 - 22893 3rd trime ster 8525 - >3000 0 Not Available [facility]) [address], [place], [address], 02/13/2022 05:02:16 02/13/20 22 02/13/2022 DHEA- SULFA TE DHEA-sulfate 6 ug/dL 19-205 low Not Available [facility] ([facility]) [address], [place], [address], 02/13/2022 05:02:17 02/13/20 22 02/12/2022 ZPDF REPOR T abnormal status abnormal Not Available [facility] [address], [place], [address], 02/14/2022 23:07:05 02/13/20 22 02/14/2022 UROGE NITAL MYCOP LASMA & UREAP LASMA PANEL mycoplasma genitalium Not Detect ed not detect ed Not Available [facility] [address], [place], [address], 02/14/2022 23:07:04 02/13/20 22 02/14/2022 UROGE NITAL MYCOP LASMA & UREAP LASMA PANEL mycoplasma hominis. Not Detect ed not detect ed Not Available [facility] [address], [place], [address], 02/14/2022 23:07:04 02/13/20 22 02/14/2022 UROGE NITAL MYCOP LASMA & UREAP LASMA PANEL ureaplasma urealyticum. Not Detect ed not detect ed Not Available [facility] [address], [place], [address], 02/14/2022 23:07:04 02/13/20 22 02/14/2022 UROGE NITAL MYCOP LASMA & UREAP LASMA PANEL ureaplasma parvum. Not Detect ed not detect ed Not Available [facility] [address], [place], [address], 02/14/2022 23:07:04 02/13/20 22 02/14/2022 CORDELIA DA VAGIN ITIS (CV) anabell vaginitis Negati ve negati ve Not Available [facility] [address], [place], [address], 02/14/2022 23:07:04 02/13/20 22 02/14/2022 CORDELIA DA VAGIN ITIS (CV) anabell glabrata. Negati ve negati ve This assay uses Holog ic TMA on the panth er syste m for detec tion of C. glabr theron. Not Available [facility] [address], [place], [address], 02/14/2022 23:07:04 02/13/20 22 02/14/2022 CORDELIA DA VAGIN ITIS (CV) anabell spp Negati ve negati ve This assay uses Holog ic TMA on the panth er syste m and will detec t but not diffe renti ates these speci es: C. albic ans,C . tropi calis , C. parap bharat is and C. dubli niens is. Not Available [facility] [address], [place], [address], 02/14/2022 23:07:04 02/13/20 22 02/14/2022 BACTE RIAL VAGIN OSIS (BV) bacterial vaginosis. Negati ve negati ve Not Available [facility] [address], [place], [address], 02/14/2022 23:07:04 02/13/20 22 02/14/2022 ANTIB IOTIC RESIS TANCE PANEL aminoglycosi de resistance Not Detect ed not detect ed Not Available [facility] [address], [place], [address], 02/14/2022 23:07:03 02/13/20 22 02/14/2022 ANTIB IOTIC RESIS TANCE PANEL methicillin resistance Not Detect ed not detect ed Not Available [facility] [address], [place], [address], 02/14/2022 23:07:03 02/13/20 22 02/14/2022 ANTIB IOTIC RESIS TANCE PANEL carbapenem resistance Not Detect ed not detect ed Not Available [facility] [address], [place], [address], 02/14/2022 23:07:03 02/13/20 22 02/14/2022 ANTIB IOTIC RESIS TANCE PANEL glycopeptide (vancomycin) resistance Not Detect ed not detect ed Not Available [facility] [address], [place], [address], 02/14/2022 23:07:03 02/13/20 22 02/14/2022 ANTIB IOTIC RESIS TANCE PANEL tetracycline resistance Detect ed not detect ed abnormal Not Available [facility] [address], [place], [address], 02/14/2022 23:07:03 02/13/20 22 02/14/2022 ANTIB IOTIC RESIS TANCE PANEL extended spectrum beta-lactama se resistance Not Detect ed not detect ed Not Available [facility] [address], [place], [address], 02/14/2022 23:07:03 02/13/20 22 02/14/2022 ANTIB IOTIC RESIS TANCE PANEL macrolide resistance Not Detect ed not detect ed Not Available [facility] [address], [place], [address], 02/14/2022 23:07:03 02/13/20 22 02/14/2022 ANTIB IOTIC RESIS TANCE PANEL cephalospori n resistance Not Detect ed not detect ed Not Available [facility] [address], [place], [address], 02/14/2022 23:07:03 02/13/20 22 02/14/2022 ANTIB IOTIC RESIS TANCE PANEL quinolone and fluroquinolo ne resistance Not Detect ed not detect ed Not Available [facility] [address], [place], [address], 02/14/2022 23:07:03 02/13/20 22 02/14/2022 ANTIB IOTIC RESIS TANCE PANEL sulfonamide resistance Not Detect ed not detect ed Not Available [facility] [address], [place], [address], 02/14/2022 23:07:03 02/13/20 22 02/14/2022 ANTIB IOTIC RESIS TANCE PANEL trimethoprim resistance Not Detect ed not detect ed Not Available [facility] [address], [place], [address], 02/14/2022 23:07:03 02/13/20 22 02/14/2022 ANTIB IOTIC RESIS TANCE PANEL fosfomycin resistance (fosa) Not Detect ed not detect ed Not Available [facility] [address], [place], [address], 02/14/2022 23:07:03 02/13/20 22 02/14/2022 ANTIB IOTIC RESIS TANCE PANEL fosfomycin resistance (fosa1) Not Detect ed not detect ed Not Available [facility] [address], [place], [address], 02/14/2022 23:07:03 02/13/20 22 02/14/2022 AEROB IC VAGIN ITIS (AV) PANEL streptococcu s agalactiae Not Detect ed not detect ed Not Available [facility] [address], [place], [address], 02/14/2022 23:07:03 02/13/20 22 02/14/2022 AEROB IC VAGIN ITIS (AV) PANEL staphylococc us aureus Not Detect ed not detect ed Not Available [facility] [address], [place], [address], 02/14/2022 23:07:03 02/13/20 22 02/14/2022 AEROB IC VAGIN ITIS (AV) PANEL escherichia coli Not Detect ed not detect ed Not Available [facility] [address], [place], [address], 02/14/2022 23:07:03 02/13/20 22 02/14/2022 AEROB IC VAGIN ITIS (AV) PANEL enterococcus faecalis Not Detect ed not detect ed Not Available [facility] [address], [place], [address], 02/14/2022 23:07:03 03/27/19 23 03/27/2022 lab* lab Not Available [facility] [address], [place], [address], 04/02/2022 16:29:46 10/30/1910/30/2022 TESTO STERO NE TOTAL testosterone total SEE BELOW NG/dL 3.00-4 1.00 The resul t is outsi de of the repor table range for this metho dolog y. Pleas e refer to Testo stero ne , Total by LC/MS for the resul t. Not Available [facility] [address], [place], [address], 10/31/2022 05:15:52 10/30/19 23 10/31/2022 TESTO STERO NE, TOTAL BY LC/MS testosterone , total by lc/MS 4.0 NG/dL 5.0-55 .0 low Preme nopau mellissa 5-55 ng/dL (Grea ter than 18 years ) Postm enopa usal 6-30 ng/dL This test was devel oped and its perfo rmanc e nilsa cteri stics were deter mined by [facility]. It has not been clear ed or appro madi by the FDA. The labor atory is regul ated under CLIA as quali fied to perfo rm high- compl exity testi ng. This test is used for clini jerica purpo ses and shoul d not be regar ded as inves tigat ional or for resea rch. Not Available [facility] [address], [place], [address], 10/31/2022 05:15:53 10/30/1910/30/2022 ESTRA DIOL estradiol 30 pg/mL Estra diol Refer ence Range Healt hy women Folli cular phase 12.4 - 233 Ovula tion phase 41.0 - 398 Lutea l phase 22.3 - 341 Postm enopa use <5 - 138 Healt hy pregn ant women 1st trime ster 154 - 3243 2nd trime ster 1561 - 17787 3rd trime ster 8525 - >3000 0 Not Available [facility] ([facility]) [address], [place], [address], 10/31/2022 05:15:53 10/30/19 23 10/30/2022 DHEA- SULFA TE DHEA-sulfate 9 ug/dL 19-205 low Not Available [facility] ([facility]) [address], [place], [address], 10/31/2022 05:15:54 Result Notes None recorded. Problems Name Problem SNOMED Code Status Onset Date Resolution Date Notes Provider Name and Address Organization Details Recorded Time Asthma 737372925 Active 2013 Asthma; Problem Title: Asthma Not Available [facility] 2 23:34:02 Chronic idiopathic constipatio n 43479720 Active 2022 [facility] 3 12:23:03 Problem Notes None recorded. Procedures Surgical History Date Name Laterality Status Provider Name and Address Organization Details Recorded Time 05/31/19 23 Colonoscopy completed [facility] 10/29/2022 11:57:15 04/21/19 23 Pellets completed [facility] 04/21/2022 09:50:27 02/13/20 22 Non-OB ULS completed Carin Porter MD [address], [place], [address], [facility] 02/12/2022 10:43:21 01/03/20 22 Date of Last Pap Smear completed [facility] 02/12/2022 10:04:54 03/01/19 22 Date of Last Mammogram completed [facility] 10/29/2022 11:57:05 total knee replacement completed [facility] 10/29/2022 11:57:54 back fusion completed [facility] 10/29/2022 11:58:05 Partial Hysterectomy completed [facility] 10/29/2022 11:58:21 Imaging Results None recorded. Procedure Notes None recorded. Medical Equipment None Reported. Allergies Allergen ID Allergen Name Allergen Category Reaction Reaction Severity Criticality Documentation Date Start Date Code Code System Note Provider Name and Address Organization Details Recorded Time 1505 Product containin g penicilli n (product) medicatio n Not available Not available Not available 11/12/2021 [id number] SNOMED Comme nt: Acces sionN umber : 98166 ; Not Available [facility] 23:35:05 Medications Name Sig Start Date Stop Date Status Note LastModified by Organization Details LastModified Time losartan 50 mg tablet active Not Available Not Available No t Available glycopyrrol ate 1 mg tablet 01/02 completed Not Available Not Available Not Available cyclobenzap rine 10 mg tablet active Not Available Not Available Not Available fluconazole 100 mg tablet 10/29 completed Not Available Not Available Not Available bupropion HCl SR 150 mg tablet,12 hr sustained-r elease 01/02 completed Not Available Not Available Not Available promethazin e-DM 6.25 mg-15 mg/5 mL oral syrup 01/02 completed Not Available Not Available Not Available prednisone 10 mg tablet 10/29 completed Not Available Not Available Not Available ipratropium 0.5 mg-albutero l 3 mg (2.5 mg base)/3 mL nebulizatio n soln active Not Available Not Available Not Available clindamycin HCl 300 mg capsule 10/29 completed Not Available Not Available Not Available azithromyci n 250 mg tablet 01/02 completed Not Available Not Available Not Available fluconazole 150 mg tablet 10/29 completed Not Available Not Available Not Available ketotifen 0.025 % (0.035 %) eye drops active Not Available Not Available No t Available clarithromy marie 500 mg tablet 10/29 completed Not Available Not Available Not Available Lasix 40 mg tablet Take 1 tablet every day by oral route. 10/29 completed Not Available Not Available Not Available diltiazem CD 240 mg capsule,ext ended release 24 hr TAKE 1 CAPSULE BY MOUTH EVERY DAY OR DIRECTED active Not Available Not Available No t Available meloxicam 15 mg tablet 10/29 completed Not Available Not Available Not Available ondansetron HCl 4 mg tablet 01/02 completed Not Available Not Available Not Available prednisone 20 mg tablet 01/02 completed Not Available Not Available Not Available metronidazo le 500 mg tablet 10/29 completed Not Available Not Available Not Available ciprofloxac in 500 mg tablet 10/29 completed Not Available Not Available Not Available spironolact one 25 mg tablet TAKE 1 TABLET BY MOUTH ONCE DAILY 01/02 completed Not Available Not Available Not Available prednisone 10 mg tablets in a dose pack 10/29 completed Not Available Not Available Not Available hydrocodone 7.5 mg-acetamin ophen 325 mg tablet active Not Available Not Available No t Available cephalexin 500 mg capsule 01/02 completed Not Available Not Available Not Available pantoprazol e 40 mg tablet,franchesca yed release active Not Available Not Available Not Available oseltamivir 75 mg capsule 10/29 completed Not Available Not Available Not Available bumetanide 0.5 mg tablet 10/29 completed Not Available Not Available Not Available nystatin 100,000 unit/gram topical cream 10/29 completed Not Available Not Available Not Available promethazin e 25 mg tablet active Not Available Not Available Not Available indomethaci n 50 mg capsule 01/02 completed Not Available Not Available Not Available bumetanide 1 mg tablet active Not Available Not Available Not Available montelukast 10 mg tablet active Not Available Not Available Not Available codeine 10 mg-guaifene sin 100 mg/5 mL oral liquid 01/02 completed Not Available Not Available Not Available furosemide 20 mg tablet 01/02 completed Not Available Not Available Not Available hydrocortis one 10 mg tablet 10/29 completed Not Available Not Available Not Available azelastine 137 mcg (0.1 %) nasal spray active Not Available Not Available Not Available epinephrine 0.3 mg/0.3 mL injection, auto-inject or 01/02 completed Not Available Not Available Not Available levofloxaci n 500 mg tablet 10/29 completed Not Available Not Available Not Available levofloxaci n 750 mg tablet 01/02 completed Not Available Not Available Not Available methylpredn isolone 4 mg tablets in a dose pack 10/29 completed Not Available Not Available Not Available albuterol sulfate HFA 90 mcg/actuati on aerosol inhaler active Not Available Not Available Not Available cefdinir 300 mg capsule 10/29 completed Not Available Not Available Not Available losartan 100 mg tablet active Not Available Not Available Not Available rosuvastati n 5 mg tablet active Not Available Not Available Not Available duloxetine 30 mg capsule,del ayed release 01/02 completed Not Available Not Available Not Available duloxetine 60 mg capsule,del ayed release active Not Available Not Available Not Available Allergy Relief and Nasal Decongestan t 10 mg-240 mg tablet,exte nded rel active Not Available Not Available Not Available eszopiclone 2 mg tablet 01/02 completed Not Available Not Available Not Available ibandronate 150 mg tablet 10/29 completed Not Available Not Available Not Available pregabalin 150 mg capsule 10/29 completed Not Available Not Available Not Available Lyrica 200 mg capsule Take 1 capsule 3 times a day by oral route. active Not Available Not Available No t Available chlorhexidi ne gluconate 0.12 % mouthwash 01/02 completed Not Available Not Available Not Available multivitami n active Not Available Not Available Not Available Boniva active Not Available Not Availa ble Not Available budesonide- formoterol HFA 160 mcg-4.5 mcg/actuati on aerosol inhaler active Not Available Not Available Not Available levocetiriz ine 5 mg tablet 10/29 completed Not Available Not Available Not Available Protonix 40 mg granules delayed-rel ease packet Take 1 packet every day by oral route. active Not Available Not Available No t Available QNASL 80 mcg/actuati on nasal aerosol spray active Not Available Not Available Not Available Myrbetriq 50 mg tablet,exte nded release Take 1 tablet every day by oral route at bedtime for 30 days. 10/29 completed Not Available Not Available Not Available Linzess 145 mcg capsule Take 1 capsule every day by oral route for 90 days. active Not Available Not Available No t Available Spiriva Respimat 2.5 mcg/actuati on solution for inhalation active Not Available Not Available N ot Available Entresto 24 mg-26 mg tablet 10/29 completed Not Available Not Available Not Available Linzess 72 mcg capsule Take 1 capsule every day by oral route in the morning for 30 days. active Not Available Not Available No t Available Dupixent 300 mg/2 mL subcutaneou s syringe active Not Available Not Available No t Available Dayvigo 5 mg tablet active Not Available Not Available No t Available Gemtesa 75 mg tablet 10/29 completed Not Available Not Available Not Available Paxlovid 150 mg-100 mg tablets in a dose pack (Moderate Renal Dose) TAKE DIRECTED ON PACKAGE TWICE A DAY FOR 5 DAYS 01/02 completed Not Available Not Available Not Available Vitals Date Recorded Body height Provider Name an d Address Organization Details Last Updated DateTime 04/21/2022 165.1 cm [facility] 04/21/2022 09:10:51 Date Recorded Body height Body mass index (BMI) Body weight Systolic And Diastolic Provider Name and Address Organization Details Last Updated DateTime 10/29/2022 165.1 cm 43.2 kg/m2 949075.58 g 126/62 mm[Hg] [facility] 10/29/2022 11:52:21 Date Recorded Body height Body mass index (BMI) Body weight Systolic And Diastolic Provider Name and Address Organization Details Last Updated DateTime 01/02/2022 165.1 cm 42 kg/m2 254755.43 g 146/88 mm[Hg] [facility] 01/02/2022 14:41:22 Date Recorded Body height Body mass index (BMI) Body weight Systolic And Diastolic Provider Name and Address Organization Details Last Updated DateTime 02/12/2022 165.1 cm 43.1 kg/m2 377803.71 g 136/82 mm[Hg] [facility] 02/12/2022 10:03:48 Social History Question Answer Notes LastModified by Organizat ion Details LastModified Time Tobacco Smoking Status Never Smoker [facility] 01/02/2022 14:41:11 What Is Your Relationship Status? [email or web address] Information not available 01/02/2022 Are You Sexually Active? No [email or web address] Information not available 01/02/2022 Sex: Unknown Functional Status Question Answer Note LastModified by Organizat ion Details LastModified Time Do you use any illicit or recreational drugs? No Information not available 01/02/2022 Do you or have you ever used any other forms of tobacco or nicotine? No [email or web address] Information not available 01/02/2022 What is your level of alcohol consumption? Occasional [email or web address] Information not available 01/02/2022 Mental Status None recorded. Family History Nothing Reported Notes:Brother - HTN: Brother - HTN GM - Colorectal Cancer: GM - Colorectal Cancer Medical History No medical history recorded. Gynecological History Statement/Question Response Date of Last Mammogram 03/01/2021 Are your periods regular? N HPV Vaccine N Date of Last Pap Smear 01/02/2022 Age at Menarche 11 Colonoscopy 05/30/2022 Hormone Replacement Therapy Y Obstetrics History GPAL:G 2 P 0 0 0 2 Type Value Living 2 Total 2 Past Encounters Encounter ID Performer Location Encounter Start Date Encounter Closed Date Diagnosis/Indication Diagnosis SNOMED-CT Code Diagnosis ICD10 Code Diagnosis IMO Codes Diagnosis Note [id number] JAKI Ugalde MD [address] [place] [id number] 01/02/2022 14:21:26 01/02/2022 15:10:22 Routine gynecologic examination done 9823753168 9101 Z01.419 Screening for malignant neoplasm of colon 581414297 Z12.11 [id number] MD CARIN Beach MD [address] [place] [address] 02/12/2022 09:41:40 02/12/2022 10:58:34 Hormone replacement therapy 774396291 Z79.890 Urge incon tinence of urine 79351105 N39.41 Overactive urinary bladder 196236384 N32.81 Vaginal discharge 318654 006 N89.8 will culture via PCL Chronic id iopathic constipation 51459862 K59.04 [id number] JAKI Ugalde MD [address] [place] [address] 04/21/2022 08:57:55 04/21/2022 10:04:45 Hormone replacement therapy 148758071 Z79.890 [id number] JAKI Ugalde MD [address] [place] [place] [address] 10/29/2022 11:40:29 10/29/2022 13:28:23 Hormone replacement therapy 517248639 Z79.890 Chronic id iopathic constipation 53015613 K59.04 Health Concerns Section Related Observation LastModified by Organization Detai ls LastModified Time None Recorded Concern Status LastModified by Organization Details LastModified Time None Recorded Advance Directives Directive None Recorded Payers Insurance Date Sequence Insurance Name Policy Number Policy Curry Covered Member ID Curry Member ID Guarantor Name 05/14/2022 2 [place] [facility] - FFS/TRADITIONAL Moraima Loya [id number] Moraima Loya 09/08/2022 1 [facility] (PPO) [id number] Moraima Loya [id number] Moraima Loya 05/14/2022 2 [employer] (PPO) Moraima Loya [id number] Moraima Loya 10/29/2022 1 [employer] (POS) [id number] Aditya Cori Loya [id number] Moraima Loya Notes Date Note Type Note Provider Name and Address Organization Details Recorded Time 01/02/2022 text/html Annual GYNReport ed by Patienthot flashes, urinary incontinence [facility] 01/02/2022 14:59:45 02/12/2022 text/html Pt here for bladder evaluation. Pt reports incontinence and urinary urgency. Pt also says she has been experiencing hot flashes. Carin Porter MD [address], [place], [address], [facility] 02/12/2022 10:57:07 04/21/2022 text/html ROS as noted in the HPI pt here for pellet insertion [facility] 04/21/2022 09:51:40 10/29/2022 text/html ROS as noted in the HPI pt is interested in transdermal HRT; constipation [facility] 10/29/2022 12:58:30 OBGyn Episode No OBEpisode recorded.
--- OUTSIDE RECORDS SUMMARY | 2024-12-25 12:06 | XMS_ITS | Data Portability ---
Author Organization [facility] Address [address] [place] [address] Assessment No assessment recorded. Plan of Treatment Reminders Order Date Submit Date Provider Last Modified By Organization Details Last Modified Time Details Appointments None recorded. Lab rapid strep group A, throat 2024 025 [facility], [address] [place] [address], [id number], 5 16:01:21 rapid flu (A+B) 2024 025 [facility], [address] [place] [address], [phone], 5 16:01:21 urinalysis, dipstick 2024 025 [facility], [address] [place] [address], [address], 5 09:12:40 culture, urine 2024 025 [facility], [address], [facility], [place], [address], 5 00:06:30 rapid flu (A+B) 2024 025 [facility], [address] [place] [address], [phone], 5 09:12:40 rapid SARS CoV + SARS CoV 2 Ag, QL IA, respiratory specimen 2024 025 [facility], [address] [place] [address], [address], 5 09:12:40 rapid strep group A, throat 2024 025 [facility], [address] [place] [address], [address], 5 17:20:50 rapid flu (A+B) 2024 025 [facility], [address] [place] [address], [address], 5 17:20:50 rapid SARS CoV + SARS CoV 2 Ag, QL IA, respiratory specimen 2024 025 [facility], [address] [place] [address], [address], 5 17:20:50 rapid SARS CoV + SARS CoV 2 Ag, QL IA, respiratory specimen 2022 023 [facility], [address] [place] [address], [address], 3 16:29:41 rapid flu (A+B) 2022 023 [facility], [address] [place] [address], [address], 3 16:29:40 Referral None recorded. Procedures None recorded. Surgeries None recorded. Imaging None recorded. Medication Orders prednisone 10 mg tablet 2024 025 [facility], [address], [address], [place], [address], 5 05:02:06 Salonpas (lidocaine) 4 % topical patch 2024 025 [facility], [address] [place] [address], [facility], [place], [place], [address], 5 11:35:31 cefdinir 300 mg capsule 2024 025 [facility], [address] [place] [address], [facility], [place], [address], 5 05:01:57 cephalexin 500 mg capsule 2024 025 [facility], [address] [place] [address], [facility], [place], [address], 5 15:18:30 cefdinir 300 mg capsule 2024 025 [facility], [address] [place] [address], [facility], [place], [address], 5 05:01:57 prednisone 10 mg tablet 2024 025 [facility], [address] [place] [address], [facility], [place], [address], 5 05:02:06 fluticasone propionate 50 mcg/actuati on nasal spray,suspe nsion 2022 023 [facility], [address] [place] [address], [facility], [place], [address], 5 16:42:14 dexamethaso ne sodium phosphate 4 mg/mL injection solution 2022 023 [facility] Not available 16:30:50 Keflex 500 mg capsule 2022 023 [facility], [address] [place] [address], [facility], [place], [address], 5 15:03:31 Diflucan 100 mg tablet 2022 023 [facility], [address], [address], [place], [address], 16:30:06 Patient TargetsNo targets recorded. Patient Instructions Encounter Date Encounter Id Patient Instructions Last Modified By Organization Details Last Modified Time 08/01/2024 [id number] sore throat in children: care instructions efryman Not available 08/01/2024 16:01:21 Reason for Referral None Reported. Results Created Date Observation Date Name Description Value Unit Range Abnormal Flag Note LastModifiedBy Organization Detail LastModifiedTime 11/17/1911/16/2022 rapid SARS CoV + SARS CoV 2 Ag, QL IA, respi rator y speci men SARS CoV antigen Negati ve Not Available [address], [address], 11/16/2022 14:05:02 11/17/19 23 11/16/2022 rapid flu (A+B) Flu negati ve Not Available [address], [address], 11/16/2022 14:04:50 11/17/19 23 11/16/2022 rapid flu (A+B) Type Both A & B Not Available [address], [address], 11/16/2022 14:04:50 12/08/19 23 12/07/2022 rapid flu (A+B) Flu negati ve Not Available [address], [address], 12/07/2022 15:47:44 12/08/19 23 12/07/2022 rapid flu (A+B) Type Both A & B Not Available [address], [address], 12/07/2022 15:47:44 12/08/19 23 12/07/2022 rapid SARS CoV + SARS CoV 2 Ag, QL IA, respi rator y speci men SARS CoV antigen Negati ve Not Available [address], [address], 12/07/2022 15:47:38 04/06/19 25 04/06/2024 rapid SARS CoV + SARS CoV 2 Ag, QL IA, respi rator y speci men SARS CoV antigen Negati ve Not Available [address], [address], 04/06/2024 16:56:03 04/06/19 25 04/06/2024 rapid flu (A+B) Flu negati ve Not Available [address], [address], 04/06/2024 16:54:29 04/06/19 25 04/06/2024 rapid flu (A+B) Type Both A & B Not Available [address], [address], 04/06/2024 16:54:29 04/06/19 25 04/06/2024 rapid strep group A, throa t Strep positi ve Not Available [address], [address], 04/06/2024 16:52:54 04/06/19 25 04/06/2024 rapid strep group A, throa t Culture No Not Available [address], [address], 04/06/2024 16:52:54 05/16/19 25 05/16/2024 URINE CULTU RE, ROUTI NE urine culture, routine Final report Not Available [facility] ([facility]) [address], [place], [address], 05/17/2024 00:06:29 05/16/19 25 05/16/2024 URINE CULTU RE, ROUTI NE result 1 COMMEN T Cultu re shows less than 10,00 0 colon y formi ng units of bacte joann per davian liter of urine . This colon y count is not gener ally consi dered to be clini chip signi fican t. Not Available [facility] ([facility]) [address], [place], [address], 05/17/2024 00:06:29 05/16/19 25 05/15/2024 rapid SARS CoV + SARS CoV 2 Ag, QL IA, respi rator y speci men SARS CoV antigen Negati ve Not Available [address], [address], 05/15/2024 09:01:48 05/16/19 25 05/15/2024 rapid flu (A+B) Flu negati ve Not Available [address], [address], 05/15/2024 09:01:32 05/16/19 25 05/15/2024 rapid flu (A+B) Type Both A & B Not Available [address], [address], 05/15/2024 09:01:32 05/16/19 25 05/15/2024 urina lysis , dipst ick Leukocytes Negati ve Not Available [address], [address], 05/15/2024 08:09:19 05/16/19 25 05/15/2024 urina lysis , dipst ick Nitrite negati ve Not Available [address], [address], 05/15/2024 08:09:19 05/16/19 25 05/15/2024 urina lysis , dipst ick Urobilinogen .2 Not Available [facility] [address], [address], 05/15/2024 08:09:19 05/16/1905/15/2024 urina lysis , dipst ick Protein Trace Not Available [address], [address], 05/15/2024 08:09:19 05/16/1905/15/2024 urina lysis , dipst ick pH 6.5 Not Available [address], [address], 05/15/2024 08:09:19 05/16/1905/15/2024 urina lysis , dipst ick Blood Negati ve Not Available [address], [address], 05/15/2024 08:09:19 05/16/19 25 05/15/2024 urina lysis , dipst ick Specific [place] 1.020 Not Available [address], [address], 05/15/2024 08:09:19 05/16/1905/15/2024 urina lysis , dipst ick Ketone Negati ve Not Available [address], [address], 05/15/2024 08:09:19 05/16/19 25 05/15/2024 urina lysis , dipst ick Bilirubin Negati ve Not Available [address], [address], 05/15/2024 08:09:19 05/16/19 25 05/15/2024 urina lysis , dipst ick Glucose 500 Not Available [address], [address], 05/15/2024 08:09:19 05/16/19 25 05/15/2024 urina lysis , dipst ick Appearance Clear Not Available [address], [address], 05/15/2024 08:09:19 05/16/1905/15/2024 urina lysis , dipst ick Color Yellow Not Available [address], [address], 05/15/2024 08:09:19 08/02/19 25 08/01/2024 rapid flu (A+B) Flu negati ve Not Available [address], [address], 08/01/2024 15:21:06 08/02/19 25 08/01/2024 rapid flu (A+B) Type Both A & B Not Available [address], [address], 08/01/2024 15:21:06 08/02/19 25 08/01/2024 rapid strep group A, throa t Strep negati ve Not Available [address], [address], 08/01/2024 15:02:49 08/02/19 25 08/01/2024 rapid strep group A, throa t Culture No Not Available [address], [address], 08/01/2024 15:02:49 Result Notes None recorded. Problems Name Problem SNOMED Code Status Onset Date Resolution Date Notes Provider Name and Address Organization Details Recorded Time Asthma 145332602 Active Quin Mcgu[place] null, [place] - [facility] 3 16:20:26 Chronic obstructive pulmonary disease 57902203 Active [place] - [facility] 3 16:20:34 Fibromyalgia 301933682 Active Quin [place] - [facility] 3 16:20:44 Congestive heart failure 37872581 Active Quin [place] - [facility] 3 16:21:18 Sleep apnea 46923224 Active Quin [place] - [facility] 3 16:21:31 Arthritis 5347912 Active Quin [place] - [facility] 3 16:21:40 Hyperlipidemi a 82038517 Active Quin [place] - [facility] 3 16:21:52 Hypertensive disorder 44466945 Active Quin [place] - [facility] 3 16:22:12 Prediabetes 862228927 Active Quin [place] - [facility] 3 16:22:36 Non-alcoholic fatty liver 412586357 Active Quin [place] [facility] 3 16:22:51 Chronic depression 437956515 Active Quin [place] [facility] 3 16:23:15 Kidney disease 10602322 Active Quin [place] - [facility] 3 16:23:41 Morbid obesity 124308598 Active 2022 Slade Ladd, [employer] [address], [place], [address] , [place] - [facility] 3 14:29:26 Acute sinusitis 87204915 Active 2022 Slade Ladd, [employer] [address], [place], [address] , [place] - [facility] 3 14:29:19 Acute bronchitis 67555174 Active 2022 Slade Ladd, [employer] [address], [place], [address] , [place] - [facility] 14:29:16 Problem Notes None recorded. Procedures Surgical History Date Name Laterality Status Provider Name and Address Organization Details Recorded Time Hysterectomy completed Quin Mcguire [place] - [facility] 06/19/2022 16:28:08 procedure on urinary bladder completed Quin ZAMAN - [facility] 06/19/2022 16:28:14 procedure on gallbladder completed Quin Mcgurie [place] - [facility] 06/19/2022 16:28:23 Back Surgery completed Quin [place]guire [place] - [facility] 06/19/2022 16:28:30 Knee Surgery completed Quin ZAMAN - [facility] 06/19/2022 16:29:03 Stimulation of spinal cord completed Mary Bartlett [place] - [facility] 04/06/2024 16:51:57 placement of stent in pulmonary artery completed Mary Lopezs [place] - [facility] 07/2024 16:52:04 cardiac catheterization completed Mary ZAMAN - [facility] 025 16:52:10 Imaging Results None recorded. Procedure Notes None recorded. Medical Equipment None Reported. Allergies Allergen ID Allergen Name Allergen Category Reaction Reaction Severity Criticality Documentation Date Start Date Code Code System Note Provider Name and Address Organization Details Recorded Time 752332 Product containin g penicilli n (product) medicatio n rash Not available high 06/19/2022 00117 8001 SNOMED Quin [place], [place] - [facility] 16:06:23 Medications Name Sig Start Date Stop Date Status Note LastModified by Organization Details LastModified Time losartan 50 mg tablet 04/06 completed Not Available Not Available Not Available glycopyrr olate 1 mg tablet 06/19 completed Not Available Not Available Not Available cyclobenz aprine 10 mg tablet Take 1 tablet as needed by oral route. active Not Available Not Available No t Available fluconazo le 100 mg tablet Take 1 tablet every day by oral route. 04/06 completed Not Available Not Available Not Available bupropion HCl SR 150 mg tablet,12 hr sustained -release 06/19 completed Not Available Not Available Not Available promethaz ine-DM 6.25 mg-15 mg/5 mL oral syrup 06/19 completed Not Available Not Available Not Available prednison e 10 mg tablet Take 1 tablet twice a day by oral route for 5 days. 08/30 completed Not Available Not Available Not Available venlafaxi ne ER 75 mg capsule,e xtended release 24 hr 1 qd active effexor Not Available Not Available Not Available carvedilo l 12.5 mg tablet 04/06 completed Not Available Not Available Not Available ipratropi um 0.5 mg-albute rol 3 mg (2.5 mg base)/3 mL nebulizat ion soln Inhale 3 mL 4 times a day by nebuliza tion route as needed for 14 days. active Not Available Not Available No t Available bumetanid e 2 mg tablet 1 bid active Not Available Not Available Not Available clindamyc in HCl 300 mg capsule 04/06 completed Not Available Not Available Not Available azithromy marie 250 mg tablet TAKE 2 TABLETS (500 MG) BY ORAL ROUTE ONCE DAILY FOR 1 DAY THEN 1 TABLET (250 MG) BY ORAL ROUTE ONCE DAILY FOR 4 DAYS 12/07 completed Not Available Not Available Not Available fluconazo le 150 mg tablet 04/06 completed Not Available Not Available Not Available ketotifen 0.025 % (0.035 %) eye drops 04/06 completed Not Available Not Available Not Available clarithro mycin 500 mg tablet 06/19 completed Not Available Not Available Not Available hydrocodo ne 5 mg-acetam inophen 325 mg tablet 04/06 completed Not Available Not Available Not Available diltiazem CD 240 mg capsule,e xtended release 24 hr Take 1 capsule every day by oral route for 30 days. 04/06 completed Not Available Not Available Not Available meloxicam 15 mg tablet 06/19 completed Not Available Not Available Not Available ondansetr on HCl 4 mg tablet 06/19 completed Not Available Not Available Not Available prednison e 20 mg tablet 06/19 completed Not Available Not Available Not Available isosorbid e mononitra te ER 30 mg tablet,ex tended release 24 hr 04/06 completed Not Available Not Available Not Available metronida zole 500 mg tablet 12/07 completed Not Available Not Available Not Available ciproflox acin 500 mg tablet 11/16 completed Not Available Not Available Not Available aspirin 81 mg tablet,de layed release TAKE ONE TABLET BY MOUTH EVERY DAY active Not Available Not Available No t Available spironola ctone 25 mg tablet Take by oral route for 30 days. 06/19 completed Not Available Not Available Not Available carvedilo l 3.125 mg tablet TAKE ONE TABLET BY MOUTH TWICE DAILY active Not Available Not Available No t Available prednison e 10 mg tablets in a dose pack 06/19 completed Not Available Not Available Not Available hydrocodo ne 7.5 mg-acetam inophen 325 mg tablet Take 1 tablet twice a day by oral route as needed for 30 days. active Not Available Not Available No t Available cephalexi n 500 mg capsule Take 1 capsule twice a day by oral route for 10 days. 08/01 completed Not Available Not Available Not Available pantopraz ole 40 mg tablet,de layed release Take 1 tablet every day by oral route for 30 days. active Not Available Not Available No t Available oseltamiv ir 75 mg capsule Take 1 capsule twice a day by oral route for 5 days. 04/06 completed Not Available Not Available Not Available bumetanid e 0.5 mg tablet Take 1 tablet every day by oral route for 90 days. 04/06 completed Not Available Not Available Not Available nystatin 100,000 unit/gram topical cream Apply 1 applicat ion every day by topical route as directed for 15 days. 04/06 completed Not Available Not Available Not Available promethaz ine 25 mg tablet 04/06 completed Not Available Not Available Not Available indometha marie 50 mg capsule 06/19 completed Not Available Not Available Not Available irbesarta n 75 mg tablet TAKE ONE TABLET BY MOUTH EVERY DAY 04/06 completed Not Available Not Available Not Available bumetanid e 1 mg tablet 04/06 completed Not Available Not Available Not Available monteluka st 10 mg tablet Take 1 tablet every day by oral route for 30 days. active Not Available Not Available No t Available furosemid e 20 mg tablet 06/19 completed Not Available Not Available Not Available hydrocort isone 10 mg tablet Take 1 tablet every day by oral route for 90 days. 11/16 completed Not Available Not Available Not Available dexametha sone sodium phosphate 4 mg/mL injection solution Inject 1 mL every day by intramus cular route. 04/06 completed Not Available Not Available Not Available lorazepam 1 mg tablet for MRI in June 2024 active Not Available Not Available No t Available azelastin e 137 mcg (0.1 %) nasal spray 04/06 completed Not Available Not Available Not Available epinephri ne 0.3 mg/0.3 mL injection , auto-inje ctor active Not Available Not Available Not Available levofloxa marie 500 mg tablet 12/07 completed Not Available Not Available Not Available levofloxa marie 750 mg tablet 06/19 completed Not Available Not Available Not Available methylpre dnisolone 4 mg tablets in a dose pack take as directed 12/07 completed Not Available Not Available Not Available albuterol sulfate HFA 90 mcg/actua tion aerosol inhaler active Not Available Not Available Not Available cefdinir 300 mg capsule Take 1 capsule every 12 hours by oral route for 10 days. 08/18 completed Not Available Not Available Not Available losartan 100 mg tablet Take 1 tablet every day by oral route for 30 days. 04/06 completed Not Available Not Available Not Available fluticaso ne propionat e 50 mcg/actua tion nasal spray,megan pension [place]fras 1 spray every day by intranas al route for 7 days. 04/06 completed Not Available Not Available Not Available rosuvasta tin 5 mg tablet Take 1 tablet every day by oral route for 30 days. 04/06 completed Not Available Not Available Not Available rosuvasta tin 40 mg tablet 1 qd active Not Available Not Available Not Available duloxetin e 30 mg capsule,d elayed release Take 1 capsule twice a day by oral route. 04/06 completed Not Available Not Available Not Available duloxetin e 60 mg capsule,d elayed release Take by oral route for 30 days. 04/06 completed Not Available Not Available Not Available ursodiol 500 mg tablet 1 tablet three times per day active Not Available Not Available No t Available Allergy Relief and Nasal Decongest ant 10 mg-240 mg tablet,ex tended rel 04/06 completed Not Available Not Available Not Available eszopiclo ne 2 mg tablet 06/19 completed Not Available Not Available Not Available ibandrona te 150 mg tablet Take 1 tablet every month by oral route for 30 days. 04/06 completed Not Available Not Available Not Available pregabali n 150 mg capsule Take 1 capsule every 12 hours by oral route for 30 days. 04/06 completed Not Available Not Available Not Available pregabali n 200 mg capsule 1 bid active Lyrica Not Available Not Available Not Available chlorhexi dine gluconate 0.12 % mouthwash 06/19 completed Not Available Not Available Not Available ranolazin e ER 500 mg tablet,ex tended release,1 2 hr 04/06 completed Not Available Not Available Not Available budesonid e-formote rol HFA 160 mcg-4.5 mcg/actua tion aerosol inhaler Inhale 1 puff twice a day by inhalati on route for 30 days. active Not Available Not Available No t Available ranolazin e ER 1,000 mg tablet,ex tended release,1 2 hr 1 qd active Ranexa Not Available Not Available Not Available levocetir izine 5 mg tablet 1 qd 04/06 completed Not Available Not Available Not Available prasugrel HCl 10 mg tablet TAKE ONE TABLET BY MOUTH EVERY DAY active Not Available Not Available No t Available [facility] Large Mask active Not Available Not Available Not Available QNASL 80 mcg/actua tion nasal aerosol spray 04/06 completed Not Available Not Available Not Available Linzess 145 mcg capsule 1 qd active Not Available Not Available Not Available Farxiga 10 mg tablet 1 qd active Not Available Not Available Not Available Spiriva Respimat 2.5 mcg/actua tion solution for inhalatio n Inhale 1 puff every day by inhalati on route for 30 days. active Not Available Not Available No t Available Breo Ellipta 200 mcg-25 mcg/dose powder for inhalatio n active Not Available Not Available Not Available Entresto 24 mg-26 mg tablet 04/06 completed Not Available Not Available Not Available Linzess 72 mcg capsule 12/07 completed Not Available Not Available Not Available Trulance 3 mg tablet 1 qd active Not Available Not Available Not Available Dupixent 300 mg/2 mL subcutane ous syringe Inject 300 mg every 2 weeks by sub-q route for 28 days. 04/06 completed Not Available Not Available Not Available oxygen 2 L as needed and at bedtime active Not Available Not Available No t Available Salonpas (lidocain e) 4 % topical patch Apply 1 patch every day by topical route for 7 days. 2024 active Not Available Not Available Not Avai lable Dayvigo 5 mg tablet Take 1 mg every day by oral route for 30 days. active Not Available Not Available No t Available Dupixent 300 mg/2 mL subcutane ous pen injector every 2 weeks active Not Available Not Available No t Available Gemtesa 75 mg tablet 06/19 completed Not Available Not Available Not Available Paxlovid 150 mg-100 mg tablets in a dose pack (Moderate Renal Dose) TAKE DIRECTED ON PACKAGE TWICE A DAY FOR 5 DAYS 06/19 completed Not Available Not Available Not Available Vitals Date Recorded Body height Respiratory rate Body mass index (BMI) Body weight Body temperature Heart rate Oxygen saturation Oxygen saturation in Arterial blood by Pulse oximetry Systolic And Diastolic Provider Name and Address Organization Details Last Updated DateTime 5 165.1 cm 18 /min 41.1 kg/m2 752186. 32 g 97.6 [degF] 84 /min 90 % 90 % 136/86 mm[Hg] Mary Bartlett [place] - [facility] 5 16:36:50 Date Recorded Body height Body mass index (BMI) Body weight Body temperature Heart rate Oxygen saturation Oxygen saturation in Arterial blood by Pulse oximetry Respiratory rate Pain severity - 0-10 verbal numeric rating [Score] - Reported Systolic And Diastolic Provider Name and Address Organization Details Last Updated DateTime 5 165.1 cm 41.1 kg/m2 201645. 32 g 97.3 [degF] 82 /min 97 % 97 % 22 /min 3 148/90 mm[Hg] Quin Mcguire [place] - [facility] 5 08:21:02 Date Recorded Body height Body mass index (BMI) Body weight Heart rate Oxygen saturation Oxygen saturation in Arterial blood by Pulse oximetry Respiratory rate Pain severity - 0-10 verbal numeric rating [Score] - Reported Systolic And Diastolic Provider Name and Address Organization Details Last Updated DateTime 5 165.1 cm 40.6 kg/m2 467265. 54 g 87 /min 96 % 96 % 22 /min 0 122/80 mm[Hg] Quin Mcguire [place] - [facility] 5 15:06:58 Date Recorded Body height Body mass index (BMI) Body weight Heart rate Oxygen saturation Oxygen saturation in Arterial blood by Pulse oximetry Respiratory rate Pain severity - 0-10 verbal numeric rating [Score] - Reported Systolic And Diastolic Provider Name and Address Organization Details Last Updated DateTime 5 165.1 cm 40.4 kg/m2 867009. 95 g 96 /min 98 % 98 % 20 /min 7 152/90 mm[Hg] Quin ZAMAN - [facility] 5 11:13:52 Date Recorded Body height Body mass index (BMI) Body weight Body temperature Heart rate Oxygen saturation Oxygen saturation in Arterial blood by Pulse oximetry Respiratory rate Pain severity - 0-10 verbal numeric rating [Score] - Reported Systolic And Diastolic Provider Name and Address Organization Details Last Updated DateTime 3 165.1 cm 42.6 kg/m2 615526. 05 g 96.7 [degF] 110 /min 91 % 91 % 20 /min 4 140/90 mm[Hg] Quin ZAMAN - [facility] 3 15:43:44 Social History Question Answer Notes LastModified by Organizat ion Details LastModified Time Tobacco Smoking Status [facility] 06/19/2022 16:26:42 Do You Have An Advance Directive? No Information n ot available 06/19/2022 Are You Blind Or Do You Have Difficulty Seeing? No Information n ot available 06/19/2022 What Is Your Level Of Caffeine Consumption? Moderate Information not available 06/19/2022 In The 14 Days Before Symptom Onset, Have You Had Close Contact With A Laboratory-confirm ed COVID-19 While That Case Was Ill? No Information n ot available 06/19/2022 In The 14 Days Before Symptom Onset, Have You Had Close Contact With A Person Who Is Under Investigation For COVID-19 While That Person Was Ill? No Information not available 06/19/2022 Have You Been To An Area Known To Be High Risk For COVID-19? No Information not available 06/19/2022 Are You Deaf Or Do You Have Serious Difficulty Hearing? No Information not available 06/19/2022 What Type Of Diet Are You Following? REGULAR Information n ot available 06/19/2022 Have You Processed Blood Or Body Fluids From An Ebola Virus Disease Patient Without Appropriate PPE? No Information not available 06/19/2022 Do You Reside In Or Have You Traveled To An Area Where Ebola Virus Transmission Is Active? No Information not available 06/19/2022 What Is The Highest Grade Or Level Of School You Have Completed Or The Highest Degree You Have Received? [id number] Information not available 06/19/2022 Have There Been Any Changes To Your Family Or Social Situation? No Information no t available 06/19/2022 What Is The Fluoride Status Of Your Home? Fluoridated Information not available 06/19/2022 Have You Recently Or Are You Planning To Travel To An Area With Zika Virus? No Information not available 06/19/2022 Do You Have A Medical Power Of Yard Coordinator? No Information not available 06/19/2022 What Was The Date Of Your Most Recent Tobacco Screening? 05/15/2024 Information not available 05/15/2024 What Is Your Relationship Status? Information not available 06/19/2022 Do You Have Smoke And Carbon Monoxide Detectors In Your Home? Yes Information not available 06/19/2022 Are You Passively Exposed To Smoke? Yes Information no t available 06/19/2022 Has Tobacco Cessation Counseling Been Provided? No Information not available 06/19/2022 Do You Have Difficulty Walking Or Climbing Stairs? No Information not available 06/19/2022 Sex: Female Functional Status Question Answer Note LastModified by Organizat ion Details LastModified Time How many times per week do you consume alcohol? Less than 1 time per week Information not available 06/19/2022 Do you use any illicit or recreational drugs? No Information not available 06/19/2022 Do you or have you ever used any other forms of tobacco or nicotine? No bstears Information not available 04/06/2024 What is your level of alcohol consumption? Occasional Information not available 06/19/2022 Are you currently employed? No Information not available 06/19/2022 Do you have transportation difficulties? No Information not available 06/19/2022 Are you able to walk independently without assistance or assistive devices? YESWOREST Information not available 06/19/2022 Do you have difficulty doing errands alone? No Information not available 06/19/2022 Are you able to care for yourself independently? Yes Information not available 06/19/2022 Do you have difficulty dressing, bathing, grooming, or toileting? No Information not available 06/19/2022 What is your exercise level? None Information not available 06/19/2022 Mental Status Question Answer Note LastModified by Organization D etails LastModified Time Do you have difficulty concentrating, remembering or making decisions? No Information no t available 06/19/2022 Family History Relationship Description Onset Age of this Age Resolved Age Notes LastModified by Organization Details LastModified Time Mother Essential hypertension [email or web address] Not available 16:26:03 Medical History Condition Response Obesity Y Hyperlipidemia Y Hypertension Y Kidney or Bladder Problems Y Lung Disease Y Gynecological History Statement/Question Response Abnormal Pap N If Post Menopausal, Age at Menopause 47 Date of Last Colonoscopy Date of Last Mammogram Most Recent Bone Density Menses Monthly N Date of Last Pap Smear LMP Unknown Obstetrics History GPAL:G 2 P 2 0 0 2 Type Value Multiple Births 0 Full Term 2 Induced 0 Spontaneous 0 Premature 0 Living 2 Ectopics 0 Total 2 Immunizations Vaccine Type Date Status Note Provider Nam e and Address Organization Details Recorded Time Hep A, adult 4 completed Not Available [facility] 08/18/2024 10:47:00 HepB-CpG 4 completed Not Available [facility] 08/18/2024 10:47:00 Influenza, split virus, trivalent, PF 5 completed Not Available [facility] 08/18/2024 10:47:00 Tdap 5 completed Not Available [facility] 08/18/2024 10:47:00 COVID-19, mRNA, LNP-S, PF, 100 mcg/0.5mL dose or 50 mcg/0.25mL dose 1 completed Quin Cardenasler null, [place] - [facility] 12/07/2022 15:44:17 COVID-19, mRNA, LNP-S, PF, 100 mcg/0.5mL dose or 50 mcg/0.25mL dose 1 completed Quin Shayla null, [place] - [facility] 12/07/2022 15:44:17 influenza, unspecified formulation 7 completed Quin Shayla [place], [place] - [facility] 12/07/2022 15:44:17 Influenza, split virus, trivalent, PF 5 completed Quin Shayla null, [place] - [facility] 12/07/2022 15:44:17 Influenza, split virus, quadrivalent, PF 7 completed Quin Shayla [place] [facility] 12/07/2022 15:44:17 Influenza, split virus, quadrivalent, PF 0 completed Quin Shayla [place] [facility] 12/07/2022 15:44:17 Influenza, split virus, quadrivalent, PF 2 completed Quin Shayla null, [place] - [facility] 12/07/2022 15:44:17 Past Encounters Encounter ID Performer Location Encounter Start Date Encounter Closed Date Diagnosis/Indication Diagnosis SNOMED-CT Code Diagnosis ICD10 Code Diagnosis IMO Codes Diagnosis Note [id number] Gemini Michael APRN [address] [address] 06/19/2022 15:50:40 06/19/2022 17:01:15 Influenza caused by Influenza B virus 02813594 J10.1 no sign of a bacterial infection. likely viral. viruses can take 7-14 days to run their course. nasal saline and bulb syringe to remove nasal drainage to help with congestion . monitor temp. Tylenol or Motrin as needed for pain or fever. encourage fluids, water, Gatorade, power aide, Pedialyte if infant/tod dler/child warm salt water gargles warm fluids sore throat lozenges sleep elevated humidifier /vaporizer follow up immediatel y for new or worsening symptoms or no noticeable improvemen t over the next 48-72 hours [id number] Slade Ladd APRN [address] [address] 11/16/2022 13:35:00 11/16/2022 14:16:26 Body mass index 40+ - severely obese 814535138 Z68.41 Morbid obesity 780789039 E66.01 -BMI 42.3 is associated with morbid obesity-he althy diet, exercise, and weight loss discussed- education informatio n regarding healthy weight given Acute sinusitis 93241828 J01.90 Patient likely has an acute bacterial sinusitis. Will treat as below.No signs of preseptal or orbital cellulitis , meningismu s, or neurologic changes concerning for intracrani al process. Instructed family to monitor patient closely and call office for any of these symptoms.S upportive care reviewed: raising HOB, humidifier use, saline nasal spray, rest, encourage PO fluids and monitor hydration status, infection control measures.R ecommended acetaminop hen/ibupro fen PRN pain, fever; reviewed appropriat e doses.Foll ow-up as below. Acute bronchitis 7575573 2 J20.9 Acute Bronchitis - Patient presents with cough and chest congestion for 5 days. No signs of pneumonia or other complicati ons.- Prescribe a 5-day course of azithromyc in and a medrol dose pack for symptom relief.- Advise patient to drink plenty of fluids, rest, and avoid smoking.- Schedule a follow-up visit in 1 weeks to monitor recovery and rule out any secondary infections . [id number] Gemini Michael APRN [address] [address] 12/07/2022 15:13:16 12/07/2022 16:42:11 Acute maxillary sinusitis 12500433 J01.00 if symptoms worsen or no improvemen t return [id number] Gemini Michael APRN [address] [address] 04/06/2024 16:20:38 04/06/2024 17:18:45 Streptococcal sore throat 20924953 J02.0 contact precaution spt allergic to amoxicilli n and states she does not want zpak Acute exac erbation of chronic obstructive pulmonary disease 059741742 J44.1 use inhalers and nebs as neededo2 [id number] Gemini Melosindi [place] [id number] 1 05/15/2024 08:04:32 05/15/2024 09:07:40 Acute urinary tract infection 822004471 N39.0 increase fluidscran elam juicewipe front to backvoid after intercours karen not hold urineantib iotics as orderedcot ton underwearr eturn if symptoms worsen or do not improve Acute uppe r respiratory infection 54318762 J06.9 monitor temp. Tylenol or Motrin as needed for pain or fever. encourage fluids, water, Gatorade, power aide, Pedialyte if /tod dler/child warm salt water gargles warm fluids sore throat lozenges sleep elevated humidifier /vaporizer follow up immediatel y for new or worsening symptoms or no noticeable improvemen t over the next 48-72 hours [id number] Gemini Melosindi [place] [id number] 1 08/01/2024 14:50:31 08/01/2024 16:02:04 Streptococcal sore throat 02063050 J02.0 [id number] contact precaution spt allergic to amoxicilli n and states she does not want zpak [id number] Gemini Michael [place] [id number] 1 08/18/2024 10:46:24 08/18/2024 11:31:18 Strain of neck muscle 001268629 S16.1XXA 3659233 restheat/i cepatchess teroidsif worsen or no improvemen t returnlook at changing to a new pillow Health Concerns Section Related Observation LastModified by Organization Detai ls LastModified Time None Recorded Concern Status LastModified by Organization Details LastModified Time None Recorded Advance Directives Directive N: Payers Insurance Date Sequence Insurance Name Policy Number Policy Curry Covered Member ID Curry Member ID Guarantor Name 09/13/2024 1 GABY ([facility]) [id number] Aditya Loya [id number] Moraima Lyoa 04/06/2024 1 [employer] (POS) Aditya Loya [id number] Moraima Loya Notes Date Note Type Note Provider Name and Address Organization Details Recorded Time 12/07/2022 text/html 57 yr old female presents with bilateral ear pain, body aches,sore throat, thick yellow green sputum,and cough for the last few days. Gemini Michael APRN [address], [place], [address], [place] - [facility] 12/07/2022 16:30:26 04/06/2024 text/html ROS as noted in the HPI 59 year old female who presents to the office today with concerns ofcough, congestion, sore throat. pt on home o2 and feels wheezy and soa Gemini Michael APRN [address], [place], [address], [place] [facility] 04/06/2024 17:22:30 05/15/2024 text/html ROS as noted in the HPI 59 yr old female presents for a possible uti. Has had right flank/side pain with urinary frequency. pt states she also is having nasal congestion and cough Gemini Michael APRN [address], [place], [address], [place] [facility] 05/15/2024 09:13:39 08/01/2024 text/html 59 yr old female presents for sore throat, aching, and congestion since Wednesday. Gemini Michael APRN [address], [place], [address], [place] [facility] 08/01/2024 16:01:49 08/18/2024 text/html 59 yr old female presents with left shoulder and neck pain. No injury. She has been using biofreeze, flexeril, and she had 3 steroid pills she took. She got a little relief but the pain came back. Gemini Michael APRN [address], [place], [address], [place] [facility] 08/18/2024 11:36:11 OBGyn Episode No OBEpisode recorded.
[2024-12-25 13:29] LABS: Hematocrit 46.8 % (37.0-47.0); Hemoglobin 15.0 g/dL (12.2-16.2); Immature Granulocytes % 0.5 %; Mean Corpuscular HGB Conc 32.1 g/dL (31.8-35.4); Mean Corpuscular Hemoglobin 27.8 pg (27.0-31.2); Mean Corpuscular Volume 86.8 fl (81-99); Nucleated Red Blood Cells % 0 %; Platelet Count 341 K/mm3 (142-424); Red Blood Count 5.39 M/mm3 (4.20-5.40); Red Cell Distribution Width-SD 44.5 fL; White Blood Count 13.8 K/mm3 (4.8-10.8)
[2024-12-25 13:55] LABS: Albumin Level 3.6 g/dl (3.5-5.0); Chloride 96 mmol/L (98-107)
[2024-12-25 13:56] LABS: Potassium 4.0 mmoL/L (3.5-5.1); Sodium 135 mmol/L (136-145)
[2024-12-25 13:58] LABS: Alanine Aminotransferase 27 U/L (12-78); Anion Gap 13.0 mEq/L (5-15); Aspartate Amino Transferase 37 U/L (14-36); Bilirubin,Unconjugated 0.4 mg/dL (0.0-1.1); Blood Urea Nitrogen 24 mg/dl (7-17); Carbon Dioxide 30 mmol/L (22.0-30.0); Creatinine,Serum 0.90 mg/dl (0.52-1.04); Estimated Glomerular Filt Rate 64 ml/min (>60); GFR (African American) 77 ML/MIN (>60); Total Protein,Serum 7.3 g/dl (6.3-8.2)
[2024-12-25 13:59] LABS: Alkaline Phosphatase 131 U/L (38-126); Bilirubin,Direct 0.0 mg/dl (0.0-0.4); Bilirubin,Indirect 0.4 mg/dL (0.0-0.9); Bilirubin,Total 0.4 mg/dl (0.2-1.3); Calcium 9.2 mg/dl (8.4-10.2); Cholesterol 116 mg/dl (140-200); Glucose 87 mg/dl (74-100); HDL Cholesterol 36 mg/dl (40-60); Magnesium 2.3 mg/dl (1.6-2.3); Triglycerides 226 mg/dl (30-150)
[2024-12-25 14:15] LABS: Free T4 (Free Thyroxine) 1.32 ng/dl (0.78-2.19)
[2024-12-25 14:29] LABS: Thyroid Stimulating Hormone 1.36 uIU/mL (0.465-4.68)
== END 2024-12-25 23:59 | disposition home or self-care (01) ==
LOC: LAB 12:04
PROVIDERS: PCP Nurse Practitioner Family; Visit Provider Nurse Practitioner
DX: I25.10 Atherosclerotic heart disease of native coronary artery without angina pectoris (principal); I10 Essential (primary) hypertension; E78.5 Hyperlipidemia, unspecified
CPT/HCPCS: 36415; 80048; 80061; 80076; 83735; 84439; 84443; 85025

== ENCOUNTER 2025-01-12 10:33 | Outpatient (CLI) | payer BC, SELFPAY ==
--- OUTSIDE RECORDS SUMMARY | 2025-01-12 10:36 | XMS_ITS | Referral Summary ---
Author Organization [facility] ([place], [place], [place], [place], [place]) Address [address] [place] [address] Care Team Providers Care Medication Manager Name Role Phone Saima Dorman APRN [...] Date Juventino rded Speak language other than Maltese at home Not on file 03/18/2023 Want [...] - 09/23/2022 12:13 PM EDT Performed at: [facility] [id number] [place] Pathologist: Abner Diaz PhD, Phone: [phone] us Kayley Whitaker MD LAB BLOOD ORDERABLES Final R esult [facility] * Hepatitis C Virus Ab w/Rflx to HCV NAAT(SENDOUT) (07/03/2022 1:21 PM EDT) Hepatitis C Antibody by SENG Interp Negative Negative 07/05/2022 10:57 AM EDT [facility] Comment: Based on the anti-HCV (SENG) screen, [...] Index 0.04 IV 07/05/2022 10:57 AM EDT [facility] Comment: Performed by [facility] [address] [place] [address] [email or web address], Carson Jay MD, PHD, Lab. Director Blood Venipuncture / Unknown 07/03/2022 1:21 PM EDT 07/03/2022 1:28 PM EDT Karolyn Ramos PA-C LAB BLOOD ORDERABLES Final Re sult [facility] [address] [place] [address], [facility] [phone] from Last 3 Months or Most Recently Relevant to Health Maintenance Insurance [employer] CHOICE PPO BLUE CROSS/BLUE SHIELD Advance Directives For more information, please contact: [phone] * Full Code (Latest Code Status on File) Date Activated Date Inactivated Comments 04/29/2022 9:21 AM 04/29/2022 1:52 PM -Attempt Resus citation if person has no pulse and is not breathing. -If no pulse or not breathing attempt CPR/CODE. -Call Rapid Response if patient is in distress. Care Teams Medication Manager Relationship Specialty Start Date End Date Saima Dorman APRN [address] [place] [address] PCP - General Nurse Practitioner 12/26/21
--- NOTE | 2025-01-12 10:37 | XR_ITS ---
FINAL REPORT CLINICAL HISTORY: persistent cough, 2 weeks FINDINGS: No acute pulmonary density is evident. There is no evidence of effusion or other pleural disease. The mediastinum has a normal appearance. The cardiac silhouette is unremarkable. IMPRESSION: Unremarkable chest exam. Authenticated and ERN
--- OUTSIDE RECORDS SUMMARY | 2025-01-12 10:37 | XMS_ITS | Encounter Summary ---
Author Organization [email or web address] ([place], [place], [place], [place], [place]) Address [address] [place] [address] Care Team Providers Care Telegraph Service Clerk Name Role Phone Saima Dorman APRN Primary Care Provider Encounter Details Date Type Department Care Team (Late st Contact Info) Description 01/22/2019 Transcribed Document [facility] [place] [address] [place] [address] ProviderKarena MD [address], [place] [address] Social History Tobacco Use Types Packs/Day Years Used Date Smoking Tobacco: Never Assessed Comments Unknown Sex and Gender Information Value Date Recorded Sex Assigned at Not on file Legal Sex Female 5:23 PM CDT Gender Identity Not on file Sexual Orientation Not on file documented as of this encounter Miscellaneous Notes * Cerner Conversion Note - Karena Ashby MD - 01/22/2019 9:15 PM HOSPITALITY HOUSE SUPERVISOR Orthopedic Nurse Navigator Entered On: 01/23/2019 14:00 EST Performed On: 01/22/2019 21:15 EST by Vandana Chun Nurse exceptional student education teacher Nurse Navigator Assessment Attended [employer] : [...] on filedocumented in this encounter Care Teams Telegraph Service Clerk Relationship Specialty Start Date End Date Saima Dorman, CLINICAL SUPPORT NURSE [address] [place] [address] PCP - General Nurse Practitioner 12/26/21 documented as of this encounter
--- OUTSIDE RECORDS SUMMARY | 2025-01-12 10:37 | XMS_ITS | Clinical Summary ---
[facility] Address [address] [place] [address] Care Team Providers Care Perishable Fruit Inspector Name Role Phone Unavailable Primary Care Provider [...] of 2) 2014 INFLUENZA VACCINE 09/29/2024 Insurance [facility] PPO Member Subscriber Plan / Payer (Ef fective 2023-Present) Name:Moraima Figueroa Relation to Subscriber:Spouse Name:ABEL FIGUEROA Payer ID:[id number] (NAIC) Type:Not on file Address: [facility] [id number] [place] [id number]
--- OUTSIDE RECORDS SUMMARY | 2025-01-12 10:37 | XMS_ITS | Encounter Summary ---
Author Organization Healthcare Address [address] [place] [address] Care Team Providers Care Jockey Agent Name Role Phone DandyAnnieyair Persaud APRN Primary Care Provider [phone] Reason for Referral * Consultation (Routine) - Closed Specialty Diagnoses / Procedures Referred By Jordan watson Referred To Contact Gastroenterology Diagnoses Abnormal CT scan, liver Fatty liver Karolyn Ramos PA [address] [facility] [address] [place] [address] Phone: tel: fax: Referral ID Status Reason Start Date Expiration Date V isits Requested Visits Authorized [id number] Closed Specialty Services Required 01/18/2023 07/19/2024 1 1 Encounter Details Date Type Department Care Team (Late st Contact Info) Description 01/18/2023 Community [facility] [address] [place] [address] Karolyn Ramos PA [address] [place] [address] scan, liver (Primary [...] documented as of this encounter Care Teams Jockey Agent Relationship Specialty Start Date End Date Saima Dorman APRN [address] [place] [address] PCP - General 07/12/20 documented as of this encounter
--- OUTSIDE RECORDS SUMMARY | 2025-01-12 10:37 | XMS_ITS | Encounter Summary ---
Author Organization Healthcare Address [address] [place] [address] Care Team Providers Care Patient Intake Coordinator Name Role Phone Saima Dorman CHRISTI Primary Care Provider [phone]- [phone] Encounter Details Date Type Department Care Team (Late st Contact Info) Description 12/29/2024 Orders Only [facility] [address] [place] [address] Quin eLvy MD [address] [place] [address] Primary biliary cholangitis (CMS/HCC) (Primary Dx) Social History Tobacco Use Types [...] as of this encounter Visit Diagnoses Diagnosis Primary biliary cholangitis (CMS/HCC)- Primary documented in this encounter Additional Health Concerns Assessment Noted Time A fall risk assessment has been complete d for the patient 03/17/2024 1:14 PM EST A Body Mass Index follow-up plan has been documented for the patient 03/24/2024 1:05 AM EST documented as of this encounter Care Teams Patient Intake Coordinator Relationship Specialty Start Date End Date Saima Dorman APRN [address] [place] [address] PCP - General 07/12/20 documented as of this encounter
--- OUTSIDE RECORDS SUMMARY | 2025-01-12 10:37 | XMS_ITS | Clinical Summary ---
Author Organization [employer] ([place], [place], [place], [place], [place]) Address [address] [place] [address] Care Team Providers Care Biopsychologist Name Role Phone Dandy Saima BARRAZA Primary Care Provider [phone] Allergies Active Allergy Reactions Criticality Noted Date [...] 12:13 PM EDT Performed at: 01 - [address] [id number] Living Nurse: Abner Diaz PhD, Phone: [phone] us Kayley Whitaker MD LAB BLOOD ORDERABLES Final R esult [facility] * Hepatitis C Virus Ab w/Rflx to HCV NAAT(SENDOUT) (07/03/2022 1:21 PM EDT) Hepatitis C Antibody by SENG Interp Negative Negative 07/05/2022 10:57 AM EDT [email or web address] Comment: Based on the anti-HCV (SENG) screen, [...] Index 0.04 IV 07/05/2022 10:57 AM EDT [email or web address] Comment: Performed by [facility], [address] [place] [id number] [email or web address], Carson Jay MD, PHD, Lab. Director Blood Venipuncture / Unknown 07/03/2022 1:21 PM EDT 07/03/2022 1:28 PM EDT Karolyn Ramos PA-C LAB BLOOD ORDERABLES Final Re sult [facility] [place] [id number], [facility] [phone] from Last 3 Months or Most Recently Relevant to Health Maintenance Insurance [employer] CHOICE PPO BLUE CROSS/BLUE SHIELD Advance Directives For more information, please contact: [phone] * Full Code (Latest Code Status on File) Date Activated Date Inactivated Comments 04/29/2022 9:21 AM 04/29/2022 1:52 PM -Attempt Resus citation if person has no pulse and is not breathing. -If no pulse or not breathing attempt CPR/CODE. -Call Rapid Response if patient is in distress. Care Teams Biopsychologist Relationship Specialty Start Date End Date Saima Dorman, CHRISTI [address] [place] [address] PCP - General Nurse Practitioner 12/26/21
--- OUTSIDE RECORDS SUMMARY | 2025-01-12 10:37 | XMS_ITS | Clinical Summary ---
Author Organization Healthcare Address [address] [place] [address] Care Team Providers Care Wallpaperer Helper Name Role Phone Saima Dorman CHRISTI Primary Care Provider [phone]- [phone] Allergies Active Allergy Reactions Criticality Noted Date [...] (one) time each day. Active HYDROcodone-aceta minophen ([place]) 7.5-325 MG tablet 2 Active methylPREDNISolon e (Medrol Dospak) 4 MG tablets 2 Active pregabalin (Lyrica) 150 MG capsule 2 Active hydrocortisone (Cortef) 10 MG tabletIndications :Adrenal insufficiency (Cache's disease) Take 1 tablet (10 mg total) [...] Active fluticasone (Flonase) 50 MCG/ACT nasal spray [place] 1 spray every day by intranasal route [...] imaging for 1 dose. 2 tablet Active ursodiol (Actigall) 500 MG tabletIndications :Primary biliary cholangitis (CMS/HCC) Take 1 tablet by mouth 3 times a day. 180 tablet 2 5 025 Active Active Problems Problem Noted Date Diagnosed [...] Encounters Date Type Department Care Team Description 12/29/2024 Orders Only [facility] Medicine Specialties [address] [place] [address] Quin Levy MD Primary biliary cholangitis (CMS/HCC) [...] 2014 UKY-Zoster Vaccines (1 of 2) 2014 [id number]-89 Vaccine (3 - Moderna risk series) 08/06/2020 [...] this topic Medical Devices Implanted Type Area Linen Controller Device Identifier Shelf Expiration Date Model / Serial / Lot Medtronic Spinal Cord Stimulator-10/31 Implanted:10/31 (Quantity not on file) Spinal Cord Stimulator Back Medtronic [id number] / / Description:MEDTRONIC SCS LE AD MODEL: [id number], implant date 11/19/2023 Procedures Procedure Name Priority [...] Adults <6.0% Children and Adolescents <7.5% Source: [place] [employer]. Standards of medical care in diabetes,2017. Diabetes Care.2017:40 (suppl 1):S1-S135. HbA1c assay performed by an ion-exchange chromatography method that is certified traceable to the DCCT. Emanuel Tadeo MD LAB BLOOD ORDERABLES Final Result [facility] [address] [place] [phone] from Last 3 Months or Most Recently Relevant to Health Maintenance [place] [address] REPLACED BY [facility] Care Teams Wallpaperer Helper Relationship Specialty Start Date End Date Saima Dorman APRN [address] [place] [address] PCP - General 07/12/20
== END 2025-01-12 23:59 | disposition home or self-care (01) ==
LOC: RAD 10:34
PROVIDERS: PCP Nurse Practitioner Family; Visit Provider Nurse Practitioner Family
DX: J45.51 Severe persistent asthma with (acute) exacerbation (principal)
CPT/HCPCS: 71046